=== PATIENT | female | born 1955 | race Caucasian/White ===

== ENCOUNTER → 2017-05-30 10:44 | Outpatient (CLI) | payer OTHER, SELFPAY ==
[2017-05-30 12:31] LABS: Absolute Lymphocyte Count 2.51 X10^3/ul (0.83-4.51); Basophil# 0.04 X10^3/uL; Basophil% 0.6 % (0-1); Eosinophil# 0.07 X10^3/uL; Hematocrit 42.6 % (37-47); Hemoglobin 13.8 g/dl (12.0-15.0); Lymphocyte # 2.51 X10^3/ul (4.0); Lymphocyte % 35.6 % (19-41); Mean Corp Hgb Conc 32.4 g/gl (32-36); Mean Corpuscular Hgb 29.7 pg (27.0-32.0); Mean Corpuscular Volume 91.8 fL (81-99); Mean Platelet Vol. 8.9 fl (6.2-12.0); Monocyte# 0.44 X10^3/uL; Monocyte% 6.2 % (0-10); Neutrophil % 56.6 % (47-70); Platelet Count 286 K/mm3 (150-450); RBC Distribution Width CV 13.2 % (11.6-14.6); RBC Distribution Width SD 44.4 fl (35.1-43.9); Red Blood Count 4.64 M/mm3 (4.2-5.4); White Blood Count 7.1 K/mm3 (4.4-11.0)
[2017-05-30 12:32] LABS: POSITIVE COUNT NO; POSITIVE DIFFERENTIAL NO; POSITIVE MORPHOLOGY NO
[2017-05-30 13:28] LABS: ALB/GLOB Ratio 1.2 RATIO (0.9-2.4); AST(SGOT) 21 U/L (15-37); Alanine Aminotransfer ALT/SGPT 23 U/L (13-56); Albumin, Serum 4.1 g/dL (3.2-5.0); Alkaline Phosphatase 67 U/L (45-117); Anion Gap 9 (5-15); BUN 15 mg/dL (7-18); BUN/Creat Ratio 13.5 RATIO (10-20); Calcium,Total 8.8 mg/dL (8.5-10.1); Chloride 103 mmol/L (98-107); Cholesterol 206 mg/dL (200); Creatinine, Serum 1.11 mg/dL (0.55-1.02); EST Glomerular Filtration Rate 53 mL/min (>60); Est Glom Filt Rate - Afr Amer 65 mL/min (>60); Globulin 3.5 g/dL (2.2-4.2); Glucose 101 mg/dL (74-106); High Density Lipoprotein 62 mg/dL; Potassium 3.9 mmol/L (3.5-5.1); Protein, Total 7.6 g/dL (6.4-8.2); Sodium Level 138 mmol/L (136-145); Thyroid Stim Hormone (TSH) 1.55 uIU/mL (0.358-3.74); Triglycerides 83 mg/dL; Very Low Density Lipoprotein 17 mg/dL (5-40)
[2017-05-31 08:51] LABS: Vitamin D,25 Hydroxy 24.2 ng/mL (19.95-100.01)
== END ==
PROVIDERS: Family Provider Family Medicine; PCP Family Medicine; Visit Provider Family Medicine
DX: R25.2 Cramp and spasm (principal); E55.9 Vitamin D deficiency, unspecified; E78.00 Pure hypercholesterolemia, unspecified
CPT/HCPCS: 36415; 80053; 80061; 82306; 84443; 85025

== ENCOUNTER → 2017-08-04 10:09 | Outpatient (CLI) | payer SELFPAY ==
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
--- NOTE | 2017-08-04 10:14 | RAD_ITS ---
STUDY: X-RAY - LEFT CLAVICLE REASON FOR EXAM: Female, 61 years old. Anterior left shoulder pain. TECHNIQUE: 2 view(s) of the clavicle. COMPARISON: None. FINDINGS: Normal clavicle. Normal acromioclavicular articulation. Normal visualized sternoclavicular articulation. Normal visualized pulmonary apex. RAD/Clavicle IMPRESSION: Normal x-ray examination of the clavicle. Electronically Signed: Manny Alarcon MD at 13:01 EDT Tel [phone], Service support ,
== END ==
PROVIDERS: Family Provider Family Medicine; PCP Family Medicine; Visit Provider Family Medicine
DX: M25.512 Pain in left shoulder (principal)
CPT/HCPCS: 73000; 73030

== ENCOUNTER 2017-11-13 15:01 | Outpatient (RCR) | payer SELFPAY ==
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
--- NOTE | 2018-01-08 16:33 | HP.PT.NRP ---
HP - Discharge Summary (1) - Patient Information ASIF HERNANDEZ was seen in my office for initial evaluation on 11/13/17. The following Plan of Care was established for this patient: This patient was last seen in our office . Pertinent comments regarding their Physical therapy will appear below: Patient has not attended physical therapy in over 8 weeks and is appropriate for d/c. At this point I will be discontinuing this patient from physical therapy. I would be happy to see this patient again in the future if found appropriate by the physician. Thank you! Trish Caasrez
== END 2017-11-13 19:00 | disposition home or self-care (01) ==
LOC: PT 15:01
PROVIDERS: Family Provider Family Medicine; PCP Family Medicine; Visit Provider Family Medicine
DX: S46.912D Strain of unspecified muscle, fascia and tendon at shoulder and upper arm level, left arm, subsequent encounter (principal); V89.2XXD Person injured in unspecified motor-vehicle accident, traffic, subsequent encounter
CPT/HCPCS: 97162

== ENCOUNTER → 2018-02-22 09:24 | Outpatient (CLI) | payer SELFPAY ==
--- NOTE | 2018-02-22 09:26 | RAD_ITS ---
STUDY: X-RAY - STERNOCLAVICULAR JOINTS REASON FOR EXAM: Female, 62 years old. Medial clavicular pain without a known injury. TECHNIQUE: 3 view(s) of the bilateral sternoclavicular joints were obtained. COMPARISON: None. FINDINGS: Normal bilateral sternoclavicular articulations. Normal visualized bilateral clavicles. Normal manubrium. Normal visualized ribs. RAD/S-C Jts Min 3 Views IMPRESSION: Normal x-ray of the bilateral sternoclavicular articulations. Electronically Signed: Mateo Bingham MD at 17:03 EST , Service support ,
--- NOTE | 2018-02-22 09:42 | RAD_ITS ---
STUDY: X-RAY - LEFT CLAVICLE REASON FOR EXAM: Medial clavicle pain, no specific injury. TECHNIQUE: 2 view(s) of the clavicle. COMPARISON: Radiographs 08/04/2017. FINDINGS: Normal clavicle. Normal acromioclavicular articulation. Normal visualized sternoclavicular articulation. Normal visualized pulmonary apex. RAD/Clavicle IMPRESSION: Normal x-ray examination of the left clavicle without interval change. Electronically Signed: Tino Barrios MD at 15:09 EST Tel , Service support ,
== END ==
PROVIDERS: Family Provider Family Medicine; PCP Family Medicine; Referring Provider Orthopaedic Surgery; Visit Provider Orthopaedic Surgery
DX: M89.8X1 Other specified disorders of bone, shoulder (principal)
CPT/HCPCS: 71130; 73000

== ENCOUNTER 2018-04-20 08:30 | Outpatient (RCR) | payer SELFPAY ==
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
--- NOTE | 2018-03-28 09:30 | HP.PTREVAL ---
Simona Keys, DO, It has been my pleasure to treat ASIF HERNANDEZ over the last 11 visits for SC sprain. Please see the progress note below for an update on the physical therapy plan of care! Subjective: Getting better. Seatbelt not irritating any longer on drive over. Pain level is 0/10. Nagging has subsided. Has not been painting though. Strengthening at home as prescribed adn is getting easier. Sleeping is good.Dressing is still a little painful 7/10 transisently. Painting is the main activity that she has to be careful with. Other things typically cause transient pain. Objective/Function: Has full aROM of L shoulder but pain at end range of horiz adduction trasniently. Strength is 4+/5 rotations without pain, 4+ flex and abd with slight transient discomfort flexion. Extension is painfree, horiz adduction strength painfree. Tender above clavicle L in SCM area and toward UT. Overall much better. 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 Plan Plan: 4-5 visits of gym based strength for Upper body and lower body and core to strengthen entire body for return to work. 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 Monitor pain. Goals Goal 1:: Pain abolished at rest and 2/10 at worst with reaching only Goal Time Frame: 2-4 Weeks Goal Progress: Goal Met Goal 2:: I approp HEP to minimize future problems Goal Time Frame: 2-4 Weeks Goal Progress: Goal Met Goal 3:: Sleep without interuption at night. Goal Time Frame: 2-4 Weeks Goal Progress: Goal Met Goal 4:: I approp gym based ex to be able to continue strength on own at gym and get to 75% subjective improvement Goal Time Frame: 2-4 Weeks Goal Progress: NEW GOAL Anticipated Interventions Patient/Client Instruction: Educate patient on: Condition, Plan of Care For the Purpose of:: To decrease pain, To improve ability of physical actions for home/community/work/leisure Therapeutic Exercise to Include: Strength training, Flexibilty training For the Purpose of:: To decrease pain, To improve ability of physical actions for home/community/work/leisure Manual Therapy Techniques to Include: Soft tissue mobilization Comment: to L SCM For the Purpose of:: To decrease pain Ultrasound (thermal/non thermal): Yes For the Purpose of:: To decrease pain, To improve nutrient delivery to tissue Please do not hesitate to contact me at [phone] by phone or if you have questions or concerns regarding this new plan of care! Sincerely, Cesar Moya, DPT, OC
--- NOTE | 2018-04-20 09:23 | HP.PTDCSUM_ITS ---
HP - PT D/C Summary It has been my pleasure to treat ASIF HERNANDEZ under orders from Simona Keys DO, for the diagnosis of SC sprain for a total of 16 visit(s). Discharge Date: 04/20/18 Please see the following information for a summary of their discharge status. - Subjective Subjective: Sleeping better at night. Still has pain with crossing over it will catch and mvoe slow. Reaching underneath something to clean and getting out is still painful. Pain doesn't linger. Gym ex going well and will continue on her own at her gym 3 x/week. no f/u with doctor Chic scheduled. - Pain L clavicle Pain Intensity (Out of 10): 0 - Overall Improvement % Improvement: 80 - Objective Objective/Function: Full aROM of L shoulder without pain. 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 Improving. Feels confident with ex to continue on own and let doctor know if pain returns. - Goals Goal 1:: Pain abolished at rest and 2/10 at worst with reaching only Goal Progress: Goal Met Goal 2:: I approp HEP to minimize future problems Goal Progress: Goal Met Goal 3:: Sleep without interuption at night. Goal Progress: Goal Met Goal 4:: I approp gym based ex to be able to continue strength on own at gym and get to 75% subjective improvement Goal Progress: Goal Met - Plan Plan: D/C, will contact doctor if continued improvement not noted with HEP. - D/C Information Discharge Comments: Pt doing wella nd plans to continue via home and gym ex taught to patient. Will contact doctor if pain digresses. If there are questions or concerns regarding this patient's physical therapy, please feel free to call me at [phone]. Thank you for the referral of this patient. Sincerely, Cesar Moya, DPT, OCS, CSCS
== END 2018-04-20 19:00 | disposition home or self-care (01) ==
LOC: PT 08:30
PROVIDERS: Family Provider Family Medicine; PCP Family Medicine; Referring Provider Orthopaedic Surgery; Visit Provider Orthopaedic Surgery
DX: S23.420D Sprain of sternoclavicular (joint) (ligament), subsequent encounter (principal)
CPT/HCPCS: 97035; 97110; 97140; 97161; 97530

== ENCOUNTER 2018-05-21 17:38 | Emergency (ER) | payer OTHER, SELFPAY ==
[2018-03-28 08:20] VITALS: BMI 25.0
[2018-05-21 17:40] VITALS: BP 162/85; PULSE 104; RESP 18; TEMP 37.3; O2SAT 100; BMI 27.6
[2018-05-21 17:45] VITALS: BP 143/73; PULSE 97; RESP 18; O2SAT 100
--- NOTE | 2018-05-21 18:21 | ED.DCSUM_ITS ---
- ER Visit Summary Date of Service: 05/21/18 Chief Complaint: Episodes of shortness of breath History of Present Illness: The patient is a [address] Maldonado. She reports that over the past 3 years she has had 10 episodes where she has had the abrupt onset of shortness of breath. States that during these episodes it feels as though her vocal cord spasm and shot. She is unable to speak. She is unable to breathe in or out. States that over the past 4 days she has had 3 episodes. States that they have each lasted 4-5 minutes. She has not been seen for this previously. Patient reports that she does have a little bit of cough. She reports that she is not having any shortness of breath other than during these episodes. No fever or chills. No chest pain or palpitations. No other complaints. Physical Examination: Vitals: Stable. Afebrile. General: Well-nourished and well-developed. Head: Normocephalic atraumatic. Neck: Supple, no lymphadenopathy. No JVD. Nontender. Cardiovascular: Regular rate and rhythm. No murmurs. Respiratory: No respiratory distress. Clear to auscultation bilaterally. Abdominal: Soft, nontender, nondistended, normal bowel sounds. No guarding, rebound, or peritoneal signs. Back: Nontender. Extremities: Nontender, no edema. Skin: Normal color, no rash. Neurologic: Alert and oriented ?3. Cranial nerves II through XII are intact. Normal strength and sensation. Psych: Normal affect. Emergency Department Course and Treatment: Patient was discussed with Dr. Darius Hughes. She is resting comfortably here. Treatment Plan: Patient will be discharged instructions use a humidifier in her home to help with the irritability of her vocal cords. She will be placed on Prilosec. Instructed to follow-up Dr. Hughes in the next 3-5 days for direct visualization. Return to the emergency department for any worsening symptoms. Disposition: To home in improved and stable condition. Impression: 1. Laryngeal spasm. This note was generated with [employer] software. It may contain incorrect words, spelling, and punctuation that were not noted in review of the chart prior to signing ED Disposition - Plan for ED Patient: Disposition: Home or Assisted Living Prescriptions: Omeprazole [Prilosec] 20 mg PO DAILY #30 capsule Referrals: Darius Pardo MD [STAFF PHYSICIAN] - 3-5 Days
== END 2018-05-21 18:43 | disposition home or self-care (01) ==
LOC: ED 18:31
PROVIDERS: Emergency Provider Emergency Medicine; Family Provider Family Medicine; PCP Family Medicine
DX: J38.5 Laryngeal spasm (principal); I10 Essential (primary) hypertension; F17.210 Nicotine dependence, cigarettes, uncomplicated
CPT/HCPCS: 99284

== ENCOUNTER → 2018-09-24 08:39 | Outpatient (CLI) | payer OTHER, SELFPAY ==
--- NOTE | 2018-09-24 08:43 | BI_ITS ---
MAMMOGRAPHY - BILATERAL SCREENING REASON FOR EXAM: Female, 63 years old. Routine annual screening examination. PERTINENT HISTORY: Mother with breast cancer. TECHNIQUE: Digital bilateral breast narendra (3D mammographic acquisition) in the CC and MLO projections. 2-D mediolateral oblique (MLO) and craniocaudad (CC) views of both breasts were obtained. CAD: Full Field Digital Mammography with Computer Added Detection was performed. COMPARISON: Comparison is made with prior study dated January 20, 2017 and August 28, 2015. FINDINGS: Breast Composition: The breasts are heterogeneously dense, which may obscure small masses. There are no dominant masses or suspicious calcifications. Stable small bilateral axillary lymph nodes. No other significant abnormalities are identified. There has been no significant change since the prior study. BI/SCREEN MAMM (CAD) W/NARENDRA BILAT IMPRESSION: Stable bilateral screening mammogram. Yearly follow-up mammogram recommended. (A) ASSESSMENT CATEGORY: BIRADS Category 2: Benign. A letter regarding these results will be sent to the patient by the facility within 30 days. Approximately 10% of breast cancers are not detected by mammography. A normal mammogram should not delay biopsy of a clinically suspicious abnormality. [id number] Electronically Signed: Manny Alarcon, at 9:47 EDT , Service support ,
== END ==
PROVIDERS: Family Provider Family Medicine; PCP Family Medicine; Referring Provider Family Medicine; Visit Provider Family Medicine
DX: Z12.31 Encounter for screening mammogram for malignant neoplasm of breast (principal)
CPT/HCPCS: 77063; 77067

== ENCOUNTER → 2019-08-26 12:20 | Outpatient (CLI) | payer OTHER, SELFPAY ==
--- NOTE | 2019-08-26 12:24 | RAD_ITS ---
STUDY: X-RAY - LEFT KNEE REASON FOR EXAM: Female, 64 years old. Pain TECHNIQUE: 4 view(s) of the knee. COMPARISON: None. FINDINGS: Normal visualized distal femur. Normal visualized proximal tibia and fibula. Normal proximal tibiofibular articulation. Normal medial femorotibial compartment. Normal lateral femorotibial compartment. Normal patellofemoral articulation. The soft tissue structures are unremarkable. RAD/Knee 4 or More Views IMPRESSION: Normal x-ray examination of the knee. Electronically Signed: Manny Alarcon, at 15:42 EDT , Service support ,
--- NOTE | 2019-08-26 12:25 | RAD_ITS ---
STUDY: X-RAY - LEFT FOOT CLINICAL: Female, 64 years old. Lateral side left foot pain, more towards heel TECHNIQUE: 3 view(s) of the foot. COMPARISON: None. FINDINGS: Normal talus, calcaneus, and tarsal bones. Normal visualized subtalar, talonavicular, calcaneocuboid, tarsal and tarsometatarsal articulations. Normal metatarsi. Normal metatarsophalangeal joint of the great toe. Normal tibial and fibular sesamoid bones. Normal interphalangeal joint of the great toe. Normal phalanges of the great toe. Normal second through fifth metatarsophalangeal joints. Normal interphalangeal joints and phalanges of the lesser toes. The soft tissue structures are unremarkable. RAD/Foot min 3 Views IMPRESSION: Normal x-ray examination of the foot. Electronically Signed: Manny Alarcon, at 15:39 EDT , Service support ,
[2019-08-26 15:03] LABS: Vitamin D,25 Hydroxy 52.1 ng/mL
[2019-08-26 15:08] LABS: Anion Gap 7 (5-15); BUN 10 mg/dL (7-18); BUN/Creat Ratio 8.7 RATIO (10-20); Calcium,Total 9.3 mg/dL (8.5-10.1); Chloride 107 mmol/L (98-107); Cholesterol 237 mg/dL (200); Creatinine, Serum 1.15 mg/dL (0.55-1.02); EST Glomerular Filtration Rate 51 mL/min (>60); Est Glom Filt Rate - Afr Amer 62 mL/min (>60); Glucose 109 mg/dL (74-106); High Density Lipoprotein 64 mg/dL; Sodium Level 140 mmol/L (136-145); Triglycerides 86 mg/dL; Very Low Density Lipoprotein 17 mg/dL (5-40)
== END ==
PROVIDERS: PCP Family Medicine; Referring Provider Family Medicine; Visit Provider Family Medicine
DX: I10 Essential (primary) hypertension (principal); E55.9 Vitamin D deficiency, unspecified; M79.672 Pain in left foot; M25.562 Pain in left knee
CPT/HCPCS: 36415; 73564; 73630; 80048; 80061; 82306

== ENCOUNTER 2019-09-26 07:00 | Outpatient (RCR) | payer OTHER, SELFPAY ==
--- NOTE | 2019-09-05 08:24 | HP.PTEVAL_ITS ---
Patient's Visit Information GABRIELLE HERNANDEZ is a 64 year old F referred to Physical Therapy by Dr. Gabrielle Goldstein MD with a diagnosis of L knee pain. Date of Evaluation: 09/03/19 Physical Therapist: Arian Frey DPT - Visit Plan Frequency: 2x /Week Duration: 6 Weeks Plan: Start with mauricio stretching and ER stretching as tolerated. Add in DFM to hip flexor (hip flexor release). Add in Femoral acetabular distraction and inferior glides with hip flexor and IR/ER (with belt) to facility better joint mechanics. Progress ankle stability (balance activies once able to complete pain free), ankle strengthening as tolerated. - Subjective Pt. is here today for her initial evaluation with diagnosis of L knee pain. Pt. has been experiencing increased L ankle pain for a few weeks, but was trying to walk through her soreness and eventually developed from L knee and hip pain as well. She believes is from compensating while she is was walking. Her knee pain is doing much better, but still has some anterior ankle pain, superior to tibial talar junction. She is also hasve some anterior L hip pain with walking and with extending. 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 Pt. denies N/T, no mech of injury, no fever, no locking or any joints and no popping. Pt. is hopeful to reduce symtoms in order to get back to all of her walking without limitations. - Pain L ankle Pain Intensity (Out of 10): 1 Pain Intensity Range: 0, 3 L knee Pain Intensity (Out of 10): 1 Pain Intensity Range: 0, 3 L hip Pain Intensity (Out of 10): 2 Pain Intensity Range: 0, 4 - Objective POSTURE: pt. has normal posture in stance. Normal knee and ankle positioning. Pt. has normal iliasc crest hieghts, symmetrical. PALPATION: Pt. has tenderness at L ankle (anterior and superor to tibial talar junction). Pt. has no lateral ankle pain. L knee pain: normal throughout all palpation. L hip- increased pain at anterior hip including iliopsoas muscle bundle. NEURO: normal throughout. Normal DTR, normal sensation. ROM: Pt. has normal ankle ROM and normal knee ROM without increase in symptioms. L hip- pain has increased pain (stretch) with light hip extension, very tight. Pt. has incrased pain with increased L hip flexion and FADDIR testing. Tightness wtih JACKIE positioning. MMT: Pt. has good strength thorughout knee and ankle. L hip- ER 4/5, extension 5/5, IR 4/5, abd 4+/5, flexion 4/5 increase NW. GAIT: Pt. ambulates with decreased L hip ex tension, tends to rotate trunk to L to compensate for her lack of L hip extnsion, normal knee postioning, she does tend to ambulate with incrased conact at lateral foot on left side. STAIRS: normal with good control, mild incrase in L knee pain with loading during descending. - Special Tests L Hip Scour: Negative L Hip JACKIE - Intraarticular Pathology: Positive L Hip FADDIR - Labrum: Positive L Knee Fabiana - Meniscus: Negative L Knee Apley - Meniscus: Negative L Knee Anterior Drawer - ACL: Negative L Knee Posterior Drawer - PCL: Negative L Knee Valgus - MCL: Negative L Knee Varus - LCL: Negative - Goals Goal 1:: LTG: Pt. to be I with HEP. Goal Time Frame: 4-6 Weeks Goal 2:: LTG: Pt. to have incrased L hip extension and ER motions to full withotu increase in symptoms. Goal Time Frame: 4-6 Weeks Goal 3:: LTG: Pt. to have 5/5 strength throughout LLE without increase in symptoms. Goal Time Frame: 4-6 Weeks Goal 4:: STG: Pt. to ambulate community levels distances without increase in L ankle, knee and hip. Goal Time Frame: 2-4 Weeks Goal 5:: LTG: pt. to resume her 2 mile recreational walking without increase in L ankle, knee and hip. Goal Time Frame: 4-6 Weeks - Rehabilitation Potential Physical Therapy Diagnosis: Pt. has signs and symptoms consistent with L knee pain, but also has L ankle and hip pain. Pt. did not have any increased L knee pain with mechanical testing. She was point tender at L ankle superior to tibial talar joint, suggesting possible high ankle sprain pathology, but no good mech of injury. She also has increased pain at anterior hip, especially with FADDIR/ impinging her anterior hip. I would recommend that she works on L hip extension and ER stretching, add in ankle stabilit and hip stretching exercises as tolerated progressing back to all of her walking as tolerated. Rehabilitation Potential: Excellent - Anticipated Interventions Patient/Client Instruction: Educate patient on: Condition, Plan of Care, Risk Factors, Benefits of Fitness Program For the Purpose of:: To improve decision making, To facilitate caregiver knowledge, To improve self management, To prevent re-injury, To improve ability to perform tasks related to life management, To improve tolerance to ADL's Therapeutic Exercise to Include: Strength training, Power training, Balance training, Body mechanics, Postural training, Flexibilty training, Gait and locomotor training, Neuromotor development, Passive ROM, Active ROM For the Purpose of:: To decrease pain, To decrease swelling/inflammation, To increase ROM, To improve nutrient delivery to tissue, To increase oxygenation perfusion, To improve muscle performance and motor function, To improve gait and locomotor functions, To improve health of tissue, To decrease soft tissue restriction, To increase flexibility/ROM, To improve balance Manual Therapy Techniques to Include: Mobilization, Passive ROM, Soft tissue mob ilization For the Purpose of:: To decrease pain, To decrease swelling/inflammation, To increase ROM, To improve nutrient delivery to tissue Ultrasound (thermal/non thermal): Yes For the Purpose of:: To decrease pain, To decrease swelling/inflammation, To improve nutrient delivery to tissue, To increase oxygenation perfusion Thank you for the opportunity to evaluate your patient. For Medicare and Medicare HMO plans, please review the plan of care and approve it. It will need to be FAXED BACK to us at [phone] for Medicare purposes. For Medicare only, by signing this I certify the plan of care. Please let me know if there are questions or concerns regarding this plan of care. Physician Signature: Date:
--- NOTE | 2019-09-26 07:30 | HP.PTDCSUM ---
It has been my pleasure to treat GABRIELLE HERNANDEZ referred by Dr. Gabrielle Goldstein MD, with the diagnosis of L knee pain for a total of 6 visit(s). Discharge Date: 09/26/19 Please see the following information for a summary of their discharge status. Subjective: Pt. reports overall she is doing better. Back to walking routine without issues. It has been so helpful.' L ankle Pain Intensity (Out of 10): 0 L knee Pain Intensity (Out of 10): 0 L hip Pain Intensity (Out of 10): 3 % Improvement: 100 Objective/Function: Pt. is doing much better with all of her mobility. She is no longer having any ankle or hip pain. She does have some stiffness with IR motions, but minimal. Pt. is overall doig much better. Pt. has greater strenth 5/5 troughout. I talked to her about continuing to stretch her calf, IT band, hip flexor, HS and quad. PT. has HEP to do so. Goal 1:: LTG: Pt. to be I with HEP. Goal Progress: Goal Met Goal 2:: LTG: Pt. to have incrased L hip extension and ER motions to full withotu increase in symptoms. Goal Progress: Goal Met Goal 3:: LTG: Pt. to have 5/5 strength throughout LLE without increase in symptoms. Goal Progress: Goal Met Goal 4:: STG: Pt. to ambulate community levels distances without increase in L ankle, knee and hip. Goal Progress: Goal Met Goal 5:: LTG: pt. to resume her 2 mile recreational walking without increase in L ankle, knee and hip. Goal Progress: Goal Met Plan: Pt. to be DC at this point time. Discharge Comments: Pt. was seen for her L ankle, knee, hip pain. Pt. did very well with stretching and strengthenign. She is back to all of her recreational walking. Pt. is compliant with HEP for mainly stretching. Pt. will be DC to HEP as shee reports beign 100% better at this point intime. If there are questions or concerns regarding this patient's physical therapy, please feel free to call me at [phone]. Thank you for the referral of this patient. Sincerely, Arian Frey DPT
== END 2019-09-26 10:31 | disposition home or self-care (01) ==
LOC: PT 07:00
PROVIDERS: PCP Family Medicine; Referring Provider Family Medicine; Visit Provider Family Medicine
DX: M25.562 Pain in left knee (principal)
CPT/HCPCS: 97110; 97140; 97161; 97164

== ENCOUNTER → 2019-11-11 10:13 | Outpatient (CLI) | payer OTHER, SELFPAY ==
--- NOTE | 2019-11-11 10:15 | BI_ITS ---
MAMMOGRAPHY - BILATERAL SCREENING REASON FOR EXAM: Female, 64 years old. Routine annual screening examination. PERTINENT HISTORY: Mother with breast cancer. TECHNIQUE: Digital bilateral breast narendra (3D mammographic acquisition) in the CC and MLO projections. 2-D mediolateral oblique (MLO) and craniocaudad (CC) views of both breasts were obtained. CAD: Full Field Digital Mammography with Computer Added Detection was performed. COMPARISON: Comparison is made with prior study dated 09-24-18 and 01-20-17. FINDINGS: Breast Composition: The breasts are heterogeneously dense, which may obscure small masses. There are no dominant masses or suspicious calcifications. Stable small benign appearing bilateral axillary lymph nodes. No other significant abnormalities are identified. There has been no significant change since the prior study. BI/SCREEN MAMM (CAD) W/NARENDRA BILAT IMPRESSION: Stable bilateral screening mammogram. Yearly follow-up mammogram recommended. (A) ASSESSMENT CATEGORY: BIRADS Category 2: Benign. A letter regarding these results will be sent to the patient by the facility within 30 days. Approximately 10% of breast cancers are not detected by mammography. A normal mammogram should not delay biopsy of a clinically suspicious abnormality. [id number] Electronically Signed: Manny Alarcon, at 11:14 EDT , Service support ,
== END ==
PROVIDERS: PCP Family Medicine; Referring Provider Family Medicine; Visit Provider Family Medicine
DX: Z12.31 Encounter for screening mammogram for malignant neoplasm of breast (principal)
CPT/HCPCS: 77063; 77067

== ENCOUNTER → 2020-06-30 11:40 | Outpatient (CLI) | payer OTHER, SELFPAY ==
[2020-06-30 13:16] LABS: Vitamin D,25 Hydroxy 34.3 ng/mL
[2020-06-30 13:20] LABS: Hemoglobin A1c 5.7 % (3.8-5.6)
[2020-06-30 13:26] LABS: Anion Gap 5 (5-15); BUN 10 mg/dL (7-18); Chloride 104 mmol/L (98-107); Cholesterol 247 mg/dL (200); Creatinine, Serum 1.25 mg/dL (0.55-1.02); EST Glomerular Filtration Rate 46 mL/min (>60); Est Glom Filt Rate - Afr Amer 56 mL/min (>60); Glucose 103 mg/dL (74-106); High Density Lipoprotein 68 mg/dL; Magnesium 2.1 mg/dL (1.6-2.6); Potassium 4.2 mmol/L (3.5-5.1); Sodium Level 137 mmol/L (136-145); Triglycerides 93 mg/dL; Very Low Density Lipoprotein 19 mg/dL (5-40)
== END ==
PROVIDERS: PCP Family Medicine; Referring Provider Family Medicine; Visit Provider Family Medicine
DX: I10 Essential (primary) hypertension (principal); E55.9 Vitamin D deficiency, unspecified; R63.5 Abnormal weight gain
CPT/HCPCS: 36415; 80048; 80061; 82306; 83036; 83735

== ENCOUNTER → 2021-03-04 07:09 | Outpatient (CLI) | payer OTHER, SELFPAY ==
--- NOTE | 2021-03-04 07:17 | BI_ITS ---
MAMMOGRAPHY - BILATERAL SCREENING REASON FOR EXAM: Female, 65 years old. Routine annual screening examination. PERTINENT HISTORY: Sister with breast cancer. Mother with breast cancer. TECHNIQUE: Digital bilateral breast narendra (3D mammographic acquisition) in the CC and MLO projections. 2-D mediolateral oblique (MLO) and craniocaudad (CC) views of both breasts were obtained. CAD: Full Field Digital Mammography with Computer Added Detection was performed. COMPARISON: Comparison is made with prior study dated 11/11/2019 and 09/24/2018. FINDINGS: Breast Composition: The breasts are heterogeneously dense, which may obscure small masses. There are no dominant masses or suspicious calcifications. Stable small benign-appearing bilateral axillary lymph nodes. No other significant abnormalities are identified. There has been no significant change since the prior study. BI/SCRN MAMM (CAD)W/NARENDRA BILAT IMPRESSION: Stable bilateral screening mammogram. Yearly follow-up mammogram recommended. (A) ASSESSMENT CATEGORY: BIRADS Category 2: Benign. A letter regarding these results will be sent to the patient by the facility within 30 days. Approximately 10% of breast cancers are not detected by mammography. A normal mammogram should not delay biopsy of a clinically suspicious abnormality. [id number] Electronically Signed: Manny Alarcon MD at 8:28 EST , Service support ,
== END ==
PROVIDERS: PCP Nurse Practitioner Family; Referring Provider Nurse Practitioner Family; Visit Provider Nurse Practitioner Family
DX: Z12.31 Encounter for screening mammogram for malignant neoplasm of breast (principal)
CPT/HCPCS: 77063; 77067

== ENCOUNTER 2021-05-07 16:45 | Outpatient (CLI) | payer OTHER, SELFPAY | END 2021-05-07 23:59 | disposition short-term general hospital (02) | LOC: LABSPEC 16:46 | PROVIDERS: PCP Nurse Practitioner Family; Visit Provider Nurse Practitioner Family | DX: Z20.822 Contact with and (suspected) exposure to COVID-19 (principal) | CPT/HCPCS: 87635; U0003; U0005 ==

== ENCOUNTER 2021-05-17 09:41 | Outpatient (CLI) | payer OTHER, SELFPAY ==
--- NOTE | 2021-05-17 09:50 | RAD_ITS ---
STUDY: X-RAY CHEST REASON FOR EXAM: Female, 65 years old. SOB TECHNIQUE: PA and lateral views of the chest. COMPARISON: None. FINDINGS: Hyperinflation. The lungs are clear. There is no demonstrated pleural abnormality. Normal size heart. Normal mediastinum and meño. Normal visualized pulmonary arteries. Normal visualized aortic arch and descending thoracic aorta. There are mild degenerative changes of the visualized thoracic spine. Normal visualized ribs, clavicles, and shoulders. There is no demonstrated abnormality of the visualized soft tissue structures of the upper abdomen. RAD/Chest PA and Lateral IMPRESSION: Hyperinflation. The lungs are clear. Electronically Signed: Manny Alarcon MD at 15:56 EST ,
== END 2021-05-17 23:59 | disposition short-term general hospital (02) ==
PROVIDERS: PCP Nurse Practitioner Family; Referring Provider Nurse Practitioner Family; Visit Provider Nurse Practitioner Family
DX: R06.02 Shortness of breath (principal)
CPT/HCPCS: 71046

== ENCOUNTER 2022-01-30 21:18 | Emergency (ER) | payer OTHER, SELFPAY ==
[2022-01-30 21:19] VITALS: BP 153/82; PULSE 104; RESP 16; TEMP 36.6; O2SAT 100; BMI 25.8
--- NOTE | 2022-01-30 22:16 | ED.VIS.CHEST ---
HPI History of Present Illness Chief Complaint: Chest Pain Informant: patient Onset/Context/Timing Onset: Weeks (2) Activity at onset: gradual Timing: Waxes and wanes Quality: Positive for Burning, Tightness and - (Squeezing) Location: Substernal Worsened By: - (Laying down) Relieved By: Antacids Associated Symptoms: Positive for Acid Reflux; Negative for Nausea, Vomiting, Diaphoresis, Dyspnea, Cough, Fever, Lightheadedness or Palpitations Narrative Narrative: Patient presents with chest pain that has been waxing and waning over the last 2 weeks but has gotten worse over the past 4 nights. Patient states her pain is worse when she lays down at night. Patient states she has been taking an acids and baking soda with some brief improvement of her symptoms. Patient denies any shortness of breath. Patient denies any nausea or vomiting. Patient describes her pain as squeezing, tightness, and burning. Patient states it is over the substernal area and occasionally radiates into her neck and jaw. Patient denies any diaphoresis. CVD Risk Factors: Positive for Hypertension and Smoking; Negative for Diabetes, Hypercholesterolemia or Family History 1' </=55 PE Risk Factors: Negative for Recent Travel/Surgery, Recent Immobilization, Prior DVT or PE, Cancer or OCP + Smoking + >/=35 PFSH PFSH Medical History History of alcohol abuse History of hypertension Mild depression Vitamin D deficiency Home Medications amitriptyline 25 mg tablet 25 mg PO QDAY 11/21/17 [History Last Taken Unknown] losartan 50 mg tablet 50 mg PO QDAY 11/21/17 [History Last Taken Unknown] sennosides 8.6 mg tablet (Senna Concentrate) 8.6 mg PO BID PRN Constipation 11/21/17 [History Last Taken Unknown] omeprazole 20 mg capsule,delayed release 20 mg PO DAILY ##30 05/21/18 [Rx Last Taken Unknown] metoclopramide HCl 10 mg tablet 10 mg PO 4X/DAY PRN Headache #20 tabs 01/31/22 [Rx Last Taken Unknown] Allergy/AdvReac Type Severity Reaction Status Date / Time amoxicillin [From Augmentin] Allergy Intermediate stomach Verified 01/30/22 21:18 pain clavulanic acid Allergy Intermediate stomach Verified 10/16/22 21:18 [From Augmentin] pain Family History Other Alcoholism Anxiety Breast cancer High cholesterol Hypertension Surgical History history of left eye surgery Social History Smoking Status: Current every day smoker tobacco type: cigarettes alcohol intake: former substance use type: does not use what type of physical activity do you participate in: walking and yoga frequency: 1-2 times per week ROS ROS ED Constitutional Constitutional ED: Denies chills or fever(s) Eyes Eyes: Denies blurry vision or change in vision ENT ENT ED: Denies rhinorrhea or sore throat Cardiovascular Cardiovascular: Reports chest pain; Denies palpitations Respiratory/Chest Respiratory/Chest: Denies cough or dyspnea Gastrointestinal Gastrointestinal: Denies abdominal pain, nausea or vomiting Genitourinary Genitourinary ED: Denies dysuria or hematuria Musculoskeletal Musculoskeletal: Reports neck pain; Denies back pain Integumentary Denies abscess or rash Neurologic Neurologic: Denies headache(s) or weakness Allergic/Immunologic Allergic/Immunologic ED: Denies mouth swelling or urticaria EXAM Physical Exam Const Vital Signs: 01/30/22 21:19 01/30/22 21:30 01/30/22 22:29 Temperature 97.8 F Temperature Source Temporal Pulse Rate 104 H 86 Respiratory Rate 16 16 Respiratory Effort Normal Blood Pressure 153/82 H 120/85 H Blood Pressure Mean 105 96 Pulse Ox 100 96 Oxygen Delivery Method Room Air Room Air 01/30/22 23:15 01/31/22 00:00 Temperature Temperature Source Pulse Rate 88 88 Respiratory Rate 18 14 Respiratory Effort Blood Pressure 132/85 H 113/72 Blood Pressure Mean 100 85 Pulse Ox 99 98 Oxygen Delivery Method Room Air Room Air Positive well nourished and well developed General Appearance ED: well developed and NAD HEENT normocephalic and atraumatic Eyes PERRL and EOMs intact bilaterally Neck supple and no JVD Chest Wall palpation of chest normal Resp normal respiratory effort and clear to auscultation bilaterally Effort and Inspection: Negative for respiratory distress Cardio regular rate, regular rhythm and no murmurs GI normal to inspection, nondistended, normoactive bowel sounds, soft to palpation, non-tender and non-distended Extremity normal to inspection General Extremety ED: Negative for edema or tenderness General Extremity: Negative for edema Neuro oriented x3, CN's II-XII intact bilaterally and no sensory deficits noted Sensorium / Orientation: awake and alert Motor Exam: strength 5/5 throughout Psych mental status grossly normal Heart Score History: Slightly/Non-Suspicious ECG: Normal Age: >45 - <65 years Risk Factors: 1 or 2 Risk Factors Troponin: </= Normal Limit Score: 2 MDM MDM MDM Narrative Medical decision making narrative: EKG was obtained. On my interpretation, it showed a normal sinus rhythm with a rate of 98. CO interval, QRS interval, and QTc intervals were all normal. [place] was normal. There are no acute ST or T wave changes. PA and lateral chest x-ray was obtained. There are 2 views. On my interpretation, lung shaw do not show any acute infiltrate. There is normal cardiac silhouette. Bony thorax is normal. There is no acute process noted. Radiologist also interpreted the x-ray and saw a right upper lobe pulmonary nodule. He recommended further evaluation with CT of the chest with contrast. This was ordered. There is a 2.1 cm spiculated nodularity in the right upper lobe that is suspicious for malignancy. This was interpreted by the radiologist and reviewed by myself. CBC was within normal limits. Comprehensive metabolic profile was within normal limits. High-sensitivity troponin was normal. Lipase was normal. Patient was given a GI cocktail. Patient states she felt better after this. Patient was given a dose of Reglan here. Patient is given a prescription for Reglan. Patient has a HEART score of 2. Patient was advised that this is low risk for acute cardiac event. Patient was advised of the results. Patient was counseled on the need for follow-up. Patient was instructed to follow-up with her primary care physician in 5 to 7 days. Patient understood and was agreeable with the plan. All questions were answered. Lab Data Attestation: I reviewed the patient's lab results. Labs: Laboratory Results - last 24 hr 01/30/22 01/30/22 22:10 22:40 WBC 7.1 RBC 4.39 Hgb 13.3 Hct 38.6 MCV 87.9 MCH 30.3 MCHC 34.5 RDW Std Deviation 42.8 RDW Coeff of Davida 13.2 Plt Count 278 MPV 8.5 Immature Gran % (Auto) 0.100 Neut % (Auto) 44.7 L Lymph % (Auto) 42.9 H [place] % (Auto) 9.2 Eos % (Auto) 2.4 Baso % (Auto) 0.7 Absolute Neuts (auto) 3.2 Absolute Lymphs (auto) 3.04 Nucleated RBC % 0 Sodium 137 Potassium 4.2 Chloride 104 Carbon Dioxide 27.0 Anion Gap 6 BUN 21 H Creatinine 1.07 H Estim Creat Clear Calc 49.72 Est GFR (MDRD) Af Amer 66 Est GFR (MDRD) Non-Af 55 L BUN/Creatinine Ratio 19.6 Glucose 93 Calcium 8.9 Total Bilirubin 0.50 AST 14 L ALT 19 Alkaline Phosphatase 69 Troponin I High Sens 5 Total Protein 7.1 Albumin 3.6 Globulin 3.5 Albumin/Globulin Ratio 1.0 Lipase 139 Radiography Chest X-Ray - ED: 2 View, Read by ED Physician, Read by Radiologist and No Acute Disease Diagnostic Testing: Clinical Impression(s) from Imaging Studies Chest X-Ray 01/30/22 22:31 IMPRESSION: Suspect right upper lobe pulmonary nodule and correlation with CT the chest with contrast is recommended. Electronically Signed: Kristofer Bah MD at 22:45 EDT , Chest CTA 01/30/22 23:21 IMPRESSION: Right upper lobe multifocal spiculated nodularity up to 2.1 cm in size worrisome for malignancy. Pulmonary consultation is recommended for consideration for tissue sampling. Centrilobular emphysematous change. Confluent mediastinal adenopathy worrisome for metastatic disease. Bilateral hilar lymph nodes are subcentimeter and nonspecific. Consider PET/CT. No evidence of pulmonary embolism. Concern for abdominal aneurysmal dilatation at the inferior study margin. Recommend abdominal CT. Electronically Signed: Abiodun Verma MD at 0:32 EDT , EKG Initial EKG: Attestation: I personally reviewed and interpreted this EKG as follows: Interpretation: Sinus Rhythm (98) and No Acute Injury Pattern Prior EKG tracings: not available for review Prior: No Prior Discharge Plan Triage Chief Complaint: Chest Pain ED Provider: Cesar Barbour Dx/Rx/DC Orders Clinical Impression: Chest pain, GERD (gastroesophageal reflux disease) Instructions: ED Chest Pain, Uncertain Cause, ED GERD (Adult) Prescriptions: New metoclopramide HCl [metoclopramide HCl] 10 mg tablet 10 mg PO 4X/DAY PRN (Reason: Headache) Qty: 20 0RF No Action losartan 50 mg tablet 50 mg PO QDAY amitriptyline 25 mg tablet 25 mg PO QDAY sennosides [Senna Concentrate] 8.6 mg tablet 8.6 mg PO BID PRN (Reason: Constipation) omeprazole 20 MG capsule 20 mg PO DAILY Qty: 30 0RF Primary Care Provider: Lara Bobo NP Referrals: Lara Bobo AUTOMATIC EQUIPMENT TECHNICIAN, AUTOMATIC EQUIPMENT TECHNICIAN-C [Primary Care Provider] - 5-7 Days Disposition Disposition: Home, Self Care
--- NOTE | 2022-01-30 22:23 | EKG12_ITS ---
Test Reason : CP Blood Pressure : / mmHG Vent. Rate : 098 BPM Atrial Rate : 098 BPM P-R Int : 128 ms QRS Dur : 076 ms QT Int : 336 ms P-R-T Axes : 079 045 060 degrees QTc Int : 428 ms Normal sinus rhythm Low voltage QRS Possible Left atrial enlargement Confirmed by ROZINA MCGARRY, PAYAM ([id number]), sports editor CESIA ESTES ([id number]) on 02/01/2022 8:22:28 AM Referred By: BB Confirmed By:PAYAM HANDY MD
[2022-01-30 22:29] VITALS: BP 120/85; PULSE 86; RESP 16; O2SAT 96
--- NOTE | 2022-01-30 22:31 | RAD_ITS ---
STUDY: X-RAY CHEST REASON FOR EXAM: Female, 66 years old. Chest pain TECHNIQUE: PA and lateral views of the chest. COMPARISON: 05/17/2021 FINDINGS: 2 cm nodular opacity in the upper right lung worrisome for pulmonary nodule and correlation with CT the chest with contrast is recommended. There is no demonstrated pleural abnormality. Normal size heart. Normal mediastinum and meño. Normal visualized pulmonary arteries. Normal visualized aortic arch and descending thoracic aorta. Normal visualized thoracic spine. Normal visualized ribs, clavicles, and shoulders. There is no demonstrated abnormality of the visualized soft tissue structures of the upper abdomen. RAD/Chest PA and Lateral IMPRESSION: Suspect right upper lobe pulmonary nodule and correlation with CT the chest with contrast is recommended. Electronically Signed: Kristofer Bah MD at 22:45 EDT ,
[2022-01-30 22:34] LABS: Absolute Lymphocyte Count 3.04 X10^3/uL (0.83-4.51); Absolute Neutrophil Count 3.2 X10^3/uL (2.0-7.7); Basophil# 0.05 X10^3/uL; Basophil% 0.7 % (0-1); Eosinophil# 0.17 X10^3/uL; Eosinophils% 2.4 % (0-5); Hematocrit 38.6 % (37-47); Hemoglobin 13.3 g/dL (12.0-15.0); Lymphocyte # 3.04 X10^3/ul (0.83-4.51); Lymphocyte % 42.9 % (19-41); Mean Corp Hgb Conc 34.5 g/dL (32-36); Mean Corpuscular Hgb 30.3 pg (27.0-32.0); Mean Corpuscular Volume 87.9 fL (81-99); Mean Platelet Vol. 8.5 fl (6.2-12.0); Monocyte# 0.65 X10^3/uL; Monocyte% 9.2 % (0-10); NRBC Flagged by Analyzer 0 % (0-5); Neutrophil # 3.16 X10^3/uL (2.7-7.7); Neutrophil % 44.7 % (47-70); Platelet Count 278 K/mm3 (150-450); RBC Distribution Width CV 13.2 % (11.6-14.6); RBC Distribution Width SD 42.8 fl (35.1-43.9); Red Blood Count 4.39 M/mm3 (4.2-5.4); White Blood Count 7.1 K/mm3 (4.4-11.0)
[2022-01-30] MEDS: Mag Hydrox/Al Hydrox/Simeth 30 ML UDC PO (22:51)
[2022-01-30 22:57] LABS: AST(SGOT) 14 U/L (15-37); Alanine Aminotransfer ALT/SGPT 19 U/L (13-56); Albumin, Serum 3.6 g/dL (3.2-5.0); Alkaline Phosphatase 69 U/L (45-117); Anion Gap 6 (5-15); BUN 21 mg/dL (7-18); BUN/Creat Ratio 19.6 RATIO (10-20); Calcium,Total 8.9 mg/dL (8.5-10.1); Chloride 104 mmol/L (98-107); Creatinine, Serum 1.07 mg/dL (0.55-1.02); EST Glomerular Filtration Rate 55 mL/min (>60); Est Glom Filt Rate - Afr Amer 66 mL/min (>60); Estimated Creatinine Clearance 49.72 ml/min; Globulin 3.5 g/dL (2.2-4.2); Glucose 93 mg/dL (74-106); Lipase 139 U/L (73-393); Potassium 4.2 mmol/L (3.5-5.1); Protein, Total 7.1 g/dL (6.4-8.2); Sodium Level 137 mmol/L (136-145); Troponin-I HS 5 pg/mL (3.0-54.0)
[2022-01-30 23:15] VITALS: BP 132/85; PULSE 88; RESP 18; O2SAT 99
--- NOTE | 2022-01-30 23:21 | CT_ITS ---
ACR Level 3 findings have been noted. An addendum which confirms receipt of the report will follow. STUDY: CTA CHEST REASON FOR EXAM: Female, 66 years old. Pulmonary nodule RADIATION DOSAGE (If Supplied By Facility): CTDIvol = ( 14.96 ) mGy, DLP = ( 328.05 ) mGycm TECHNIQUE: The examination was performed with the intravenous administration of IV 100mL Isovue-370. Post-processing of the angiographic images was performed, with multiplanar reformation and 3D reconstruction. Individualized dose optimization techniques were used for this CT. COMPARISON: Chest radiograph January 30, 2022. FINDINGS: Unremarkable thyroid. Normal enhancement of the main pulmonary artery and right and left pulmonary arteries. Normal enhancement of the bilateral peripheral pulmonary arteries. There is no demonstrated pulmonary embolism. Scattered aortic atherosclerosis without aortic dissection or aneurysmal dilatation. Normal heart and pericardium. No densely calcified coronary atherosclerosis. Subcentimeter bilateral hilar lymph nodes. Confluent adenopathy in the precarinal mediastinum spanning approximately 2.2 cm with partial encasement and mild narrowing of the right pulmonary artery. Mild bilateral peribronchial thickening with endobronchial debris in the posterior right lower lobe bronchi. Diffuse emphysematous change. Multiple localizers spiculated nodules in the right upper lobe, largest 2.1 cm located 9 mm from posterior lateral pleura with interstitial tethering to the pleura. No left lung consolidation or suspicious nodularity. No effusion. No pneumothorax.. Normal chest wall structures. Normal osseous structures. Suggestion of aneurysmal dilatation of the aorta at the inferior most slice, reference coronal image 155. CT/CTA Chest W/WO Contrast IMPRESSION: Right upper lobe multifocal spiculated nodularity up to 2.1 cm in size worrisome for malignancy. Pulmonary consultation is recommended for consideration for tissue sampling. Centrilobular emphysematous change. Confluent mediastinal adenopathy worrisome for metastatic disease. Bilateral hilar lymph nodes are subcentimeter and nonspecific. Consider PET/CT. No evidence of pulmonary embolism. Concern for abdominal aneurysmal dilatation at the inferior study margin. Recommend abdominal CT. Electronically Signed: Abiodun Verma MD at 0:32 EDT ,
[2022-01-31] VITALS: BP 113/72; PULSE 88; RESP 14; O2SAT 98
[2022-01-31 00:41] VITALS: BP 113/72; PULSE 89; RESP 16; O2SAT 96
== END 2022-01-31 00:47 | disposition home or self-care (01) ==
PROVIDERS: Emergency Provider Emergency Medicine; PCP Nurse Practitioner Family; Visit Provider Emergency Medicine
DX: R07.9 Chest pain, unspecified (principal); R91.8 Other nonspecific abnormal finding of lung field; I10 Essential (primary) hypertension; F17.210 Nicotine dependence, cigarettes, uncomplicated; Z82.49 Family history of ischemic heart disease and other diseases of the circulatory system; K21.9 Gastro-esophageal reflux disease without esophagitis
CPT/HCPCS: 71046; 71275; 80053; 83690; 84484; 85025; 93005; 99284; Q9967; A4216

== ENCOUNTER → 2022-02-07 | Outpatient (CLI) | payer OTHER, SELFPAY ==
[2022-02-07 10:01] LABS: Hematocrit 40.4 % (37-47); Hemoglobin 13.4 g/dL (12.0-15.0); Mean Corp Hgb Conc 33.2 g/dL (32-36); Mean Corpuscular Hgb 29.4 pg (27.0-32.0); Mean Corpuscular Volume 88.6 fL (81-99); Mean Platelet Vol. 9.1 fl (6.2-12.0); Platelet Count 282 K/mm3 (150-450); RBC Distribution Width CV 13.3 % (11.6-14.6); RBC Distribution Width SD 43.1 fl (35.1-43.9); Red Blood Count 4.56 M/mm3 (4.2-5.4); White Blood Count 7.3 K/mm3 (4.4-11.0)
[2022-02-07 10:33] LABS: Prothrombin Time (Protime)PT. 12.9 SECONDS (11.7-14.9)
[2022-02-07 10:34] LABS: Partial Thromboplast Time 27.9 Seconds (24.1-36.2)
== END | disposition home or self-care (01) ==
PROVIDERS: PCP Nurse Practitioner Family; Referring Provider Internal Medicine Critical Care Medicine; Visit Provider Internal Medicine Critical Care Medicine
DX: R91.8 Other nonspecific abnormal finding of lung field (principal)
CPT/HCPCS: 36415; 85027; 85610; 85730

== ENCOUNTER → 2022-02-10 | Outpatient (CLI) | payer OTHER, SELFPAY ==
--- NOTE | 2022-02-10 07:09 | CT_ITS ---
EXAM: CT ABDOMEN AND PELVIS WITH INTRAVENOUS CONTRAST CLINICAL INDICATION: PAIN TECHNIQUE: Helically acquired images were obtained of the abdomen and pelvis with intravenous contrast. This CT exam was performed using one or more of the following dose reduction techniques: automated exposure control, adjustment of the mA and/or kV according to patient size, and/or use of iterative reconstruction technique. This report was created using Live[employer] report generation technology. CONTRAST: IV 100mL Isovue-300 COMPARISON: None. FINDINGS: LOWER THORAX: Centrilobular pulmonary emphysema noted at the lung bases. ABDOMEN: LIVER: Normal. Homogeneous. No focal mass. GALLBLADDER AND BILE DUCTS: Normal. No calcified gallstones. No gallbladder distention or wall edema. No intra- or extrahepatic biliary ductal dilation. PANCREAS: Normal. No focal cystic or solid mass. SPLEEN: Normal. Normal size without focal cystic or solid mass. ADRENALS: Normal. No nodules. KIDNEYS AND URETERS: Normal. Normal renal size and position. No hydronephrosis. STOMACH AND BOWEL: Moderate stool burden within the large bowel. PELVIS: APPENDIX: No evidence of acute appendicitis. BLADDER: Normal. REPRODUCTIVE: Unremarkable as visualized. No mass. ABDOMEN and PELVIS: INTRAPERITONEAL SPACE: Normal. No ascites or other fluid collection. No free air. BONES/JOINTS: Normal. No suspicious lytic or blastic abnormality. SOFT TISSUES: Normal. No discrete abdominal or pelvic wall hernia. VASCULATURE: Normal. Abdominal aorta is non-dilated. LYMPH NODES: Normal. No enlarged lymph nodes. CT/Abdomen/Pelvis WITH Contrast IMPRESSION: 1. No acute abdominal or pelvic abnormality. 2. Constipation. Electronically Signed: Rich Gomes MD at 7:56 EDT ,
== END | disposition home or self-care (01) ==
PROVIDERS: PCP Nurse Practitioner Family; Referring Provider Nurse Practitioner Family; Visit Provider Nurse Practitioner Family
DX: I77.9 Disorder of arteries and arterioles, unspecified (principal); K21.9 Gastro-esophageal reflux disease without esophagitis; R91.8 Other nonspecific abnormal finding of lung field; R59.0 Localized enlarged lymph nodes; J98.4 Other disorders of lung; F17.290 Nicotine dependence, other tobacco product, uncomplicated
CPT/HCPCS: 74177; Q9967

== ENCOUNTER 2022-02-11 11:50 | Day surgery (SDC) | payer OTHER, SELFPAY ==
--- NOTE | 2022-02-11 | ASPIG_PTH ---
PATIENT: ASIF HERNANDEZ LOC: EN U#:[id number] AGE/SX: 66/F ROOM: RE02/11/[address]: Dr. Jarred Jones MD : 1955 BED: DIS: 02/11/2022 SPEC #: [id number] RECD: 02/11/22 14:36 STATUS: RODRIGO RENico #: [id number] ANNA: 02/11/22 00:[address]: Jarred Jones DEPT: CYTOLOGY RECD BY: Arjun Aguilar ENTERED: 02/11/22 14:38 SP TYPE: ASP OUT OTHR DR: Lara Bobo, DRYING OVEN ATTENDANT-C Tissues: A - Lung, NOS B - Lung, NOS C - Lung, NOS D - Lung, NOS E - Lung, NOS F - Lung, NOS G - Lung, NOS H - Lung, NOS I - Lung, NOS J - Lung, NOS K - Lung, NOS Procedures: FNA Specimen Adequacy Special Stain Group II Surgery Specimen Level IV Cytology Other HEADER OPERATION: Endobronchial ultrasound and bronchoscopy PRE-OP DIAGNOSIS: Lung mass TISSUE SUBMITTED: A - EBUS, TBNA, site 4R #1, B - EBUS, TBNA, site 4R #2, C - EBUS, TBNA, site?4R #3, D - EBUS, TBNA, site 4R #4, E - EBUS, TBNA, site 7 #5, F - EBUS, TBNA, site 7 #6, G - EBUS, TBNA, site 7 #7, H - EBUS, TBNA, site 7 #8, I - EBUS, TBNA, site 7 #9, J - EBUS, TBNA, site?4R, K - EBUS, TBNA, site 7 DIAGNOSIS CYTOLOGY A. EBUS, TBNA, site 4R #1: Rare lymphocytes. Blood. No malignant cells present. B. EBUS, TBNA, site 4R #2: Rare atypical cells present. Abundant mucoid material. C. EBUS, TBNA, site 4R #3: Rare atypical cells present. Abundant mucoid material. D. EBUS, TBNA, site 4R #4: Rare atypical cells present. Abundant mucoid material. E. EBUS, TBNA, site 7 #5: Abundant lymphocytes present. No evidence of malignancy. F. EBUS, TBNA, site 7 #6: Abundant lymphocytes present. No evidence of malignancy. G. EBUS, TBNA, site 7 #7: Benign bronchial epithelial cells and blood. No evidence of malignancy. H. EBUS, TBNA, site 7 #8: Positive for malignant cells consistent with small cell carcinoma. I. EBUS, TBNA, site 7 #9: Negative for malignant cells. Abundant benign bronchial epithelial cells noted. J. EBUS, TBNA, site 4R (cell block): Atypical cells consistent with small cell carcinoma of the lung. See comment. K. EBUS, TBNA, site 7 (cell block): Positive for malignant cells consistent with small cell carcinoma of the lung. See comment. CAROLEE:paty 02/15/2022 COMMENT The specimen is evaluated at the time of procedure by Dr. Bennett. Rapid Onsite Evaluation: A. EBUS, TBNA, site 4R #1: Rare lymphocytes. Blood. No malignant cells present. B. EBUS, TBNA, site 4R #2: Rare atypical cells present. Abundant mucoid material. C. EBUS, TBNA, site 4R #3: Rare atypical cells present. Abundant mucoid material. D. EBUS, TBNA, site 4R #4: Rare atypical cells present. Abundant mucoid material. E. EBUS, TBNA, site 7 #5: Abundant lymphocytes present. No evidence of malignancy. F. EBUS, TBNA, site 7 #6: Abundant lymphocytes present. No evidence of malignancy. G. EBUS, TBNA, site 7 #7: Benign bronchial epithelial cells and blood. No evidence of malignancy. H. EBUS, TBNA, site 7 #8: Positive for malignant cells consistent with small cell carcinoma. I. EBUS, TBNA, site 7 #9: Negative for malignant cells. Abundant benign bronchial epithelial cells noted. J & K. Immunohistochemistry ([id number]) supports the above diagnosis. CYTOLOGY STUDY Slides are reviewed. CYTOLOGY GROSS A - Received labeled with the patient's name and and designated EBUS, TBNA, site 4R #1. The specimen consists of two stained smears for KD (Rapid Onsite Evaluation). B - Received labeled with the patient's name and and designated EBUS, TBNA, site 4R #2. The specimen consists of two stained smears for KD. C - Received labeled with the patient's name and and designated EBUS, TBNA, site 4R #3. The specimen consists of two stained smears for KD. D - Received labeled with the patient's name and and designated EBUS, TBNA, site 4R #4. The specimen consists of two stained smears for KD. E - Received labeled with the patient's name and and designated EBUS, TBNA, site 7 #5. The specimen consists of two stained smears for KD. F - Received labeled with the patient's name and and designated EBUS, TBNA, site 7 #6. The specimen consists of two stained smears for KD. G - Received labeled with the patient's name and and designated EBUS, TBNA, site 7 #7. The specimen consists of two stained smears for KD. H - Received labeled with the patient's name and and designated EBUS, TBNA, site 7 #8. The specimen consists of two stained smears for KD. I - Received labeled with the patient's name and and designated EBUS, TBNA, site 7 #9. The specimen consists of two stained smears for KD. J - Received in RPMI is 20 ml of pink, needle rinsed fluid labeled with the patient's name and and designated EBUS, TBNA, site 4R. The specimen is submitted for cell block preparation. K - Received in RPMI is 20 ml of pink, needle rinsed fluid labeled with the patient's name and and designated EBUS, TBNA, site 7. The specimen is submitted for cell block preparation. / AM:paty 02/11/2022 TC:0 CPT: 27525 x2, 56348 x2, 20288 x7, 03719 x2 ADDENDUM ADDENDUM ADDENDUM ADDENDUM ADDENDUM ADDENDUM ADDENDUM ADDENDUM ADDENDUM ADDENDUM ADDENDUM ADDENDUM ADDENDUM ADDENDUM ADDENDUM ADDENDUM ADDENDUM ADDENDUM ADDENDUM ADDENDUM ADDENDUM ADDENDUM ADDENDUM ADDENDUM ADDENDUM ADDENDUM ADDENDUM ADDENDUM ADDENDUM ADDENDUM ADDENDUM ADDENDUM ADDENDUM 03/10/2025 11:28 ADDENDUM 03/10/2025 11:28 ADDENDUM 03/10/2025 11:28 ADDENDUM 03/10/2025 11:28 ADDENDUM 03/10/2025 11:28 This addendum is added to incorporate an outside pathology consultation report. The case was examined at [facility] by Dr. Morgan (#[id number]) and the following diagnosis was rendered. A. EBUS, 4R #1, FNA: Unsatisfactory due to insufficient cellular material. Insufficient lymphocytes present. B. EBUS, 4R #2, FNA: Unsatisfactory due to insufficient cellular material. Insufficient lymphocytes present. C. EBUS, 4R #3, FNA: Unsatisfactory due to insufficient cellular material. Insufficient lymphocytes present. D. EBUS, 4R #4, FNA: Unsatisfactory due to insufficient cellular material. Insufficient lymphocytes present. E. EBUS, 7 #5, FNA: No malignant cells are identified. Lymphoid population. F. EBUS, 7 #6, FNA: No malignant cells are identified. Lymphoid population. G. EBUS, 7 #7, FNA: Unsatisfactory due to insufficient cellular material. Insufficient lymphocytes present. H. EBUS, 7 #8, FNA: Malignant cells present, consistent with small cell carcinoma. I. EBUS, 7 #9, FNA: Unsatisfactory due to insufficient cellular material. Insufficient lymphocytes present. J. EBUS, 4R, FNA: Rare malignant cells present, consistent with small cell carcinoma. K. EBUS, 7, FNA: Rare malignant cells present, consistent small cell carcinoma. Please see complete above mentioned consultation report in EMR
--- NOTE | 2022-02-11 | IMM_PTH ---
PATIENT: ASIF HERNANDEZ LOC: EN U#:[id number] AGE/SX: 66/F ROOM: RE02/11/[address]: Dr. Jarred Jones MD : 1955 BED: DIS: 02/11/2022 SPEC #: [id number] RECD: 02/15/22 09:19 STATUS: RODRIGO REQ #: [id number] ANNA: 02/11/22 00:[address]: Jarred Jones DEPT: IMMUNOHISTOCHEMISTRY RECD BY: Sonja Saenz ENTERED: 02/15/22 09:22 SP TYPE: IMMUNO OTHR DR: Lara Bobo, MEAT CUTTING BLOCK REPAIRER-C Tissues: J - Lung, NOS K - Lung, NOS Procedures: Synapto (add) NAPSIN A (add) CD56 (add) CHROMO (add) CK20 (add) CK5-6 (add) CK8 (add) TTF1 (add) 34BE12 (add) P40 (add) CK7 (initial) NSE (add) PHYSICIAN & [address] [address] SPECIMEN INFORMATION: Tissue Source: J - EBUS, TBA, site 4R, K - EBUS, TBA, site 7 Clinical Info: Lung mass Specimen Number: [id number] J & K CPT code: 54207 x2, 05159 x22 METHODOLOGY: Deparaffinized sections of prefer/formalin-fixed tissue or PAP/DQ stained slides are incubated with monoclonal/polyclonal antibodies/oligonucleotide probes. Localization is made via biotin free immunoperoxidase method. Appropriate controls are performed and reacted as expected. Results on target cell population are indicated in the following table: RESULTS: ANTIBODY / CLONE RESULT Block J CK7 (OV-TL12/30) positive, focal CK8 (86mzhjC62) positive, focal CK20 (KS20.8) negative 34BE12 (34BE12) negative CD56 (123C3.D5) positive Chromo (LK2H10) positive, focal Synapto (polyclonal) positive, rare NSE Neuron Specific Enolase positive TTF-1 (8G7G3/1) negative Napsin A (Rabbit Polyclonal) positive, dim CK5-6 (D5 & 1684) negative P40 (BC28) negative Block K CK7 (OV-TL12/30) negative CK8 (83qvuyQ25) positive, focal CK20 (KS20.8) negative 34BE12 (34BE12) negative CD56 (123C3.D5) positive Chromo (LK2H10) positive, focal Synapto (polyclonal) negative NSE Neuron Specific Enolase positive, rare TTF-1 (8G7G3/1) negative Napsin A (Rabbit Polyclonal) positive, dim CK5-6 (D5 & 1684) negative P40 (BC28) negative These tests were developed and their performance characteristics determined by [facility]. They may not have been cleared or approved by the U.S. Food and Drug Administration. The FDA has determined that such clearance or approval is not necessary. The above immunohistochemical/dualISH markers are ordered and reviewed by the Pathologist. INTERPRETATION: TRUMAN DIAZ, site 4R: Consistent with small cell carcinoma of lung. TRUMAN TEJADA, site 7: Consistent with small cell carcinoma of lung. AM:paty 02/15/2022
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
[2022-02-11 12:22] VITALS: BP 120/74; PULSE 100; RESP 18; TEMP 36.4; O2SAT 96; BMI 25.8
[2022-02-11] MEDS: Lactated Ringers 1,000 ML 15 ML IV (12:31)
[2022-02-11] MEDS: Lidocaine Jelly 2% 20 ML Syringe (URO-JET) 1 APPLIC (13:30)
[2022-02-11 14:20] VITALS: BP 120/74; BP 138/100; PULSE 83; RESP 16; TEMP 36.2; O2SAT 100
[2022-02-11 14:25] VITALS: BP 108/66; BP 120/74; PULSE 82; RESP 16; O2SAT 96
[2022-02-11 14:30] VITALS: BP 110/65; BP 120/74; PULSE 79; RESP 16; O2SAT 94
[2022-02-11 14:34] VITALS: BP 116/75; BP 120/74; PULSE 86; RESP 16; TEMP 36.7; O2SAT 98
--- NOTE | 2022-02-11 14:55 | OP.BRONCH_ITS ---
Patient Name: Gabrielle Rios Procedure Date: 02/11/2022 12:56 PM Date of : 1955 Age: 66 Procedure: Bronchoscopy Indications: Nodule of lung, Mediastinal adenopathy Providers: Jarred Jones MD Medicines: See the Anesthesia note for documentation of the administered medications Complications: No immediate complications Procedure: Pre-Anesthesia Assessment: - Prior to the procedure, a History and Physical was performed, and patient medications and allergies were reviewed. The patient's tolerance of previous anesthesia was also reviewed. The risks and benefits of the procedure and the sedation options and risks were discussed with the patient. All questions were answered, and informed consent was obtained. Prior Anticoagulants: The patient has taken no previous anticoagulant or antiplatelet agents. ASA Grade Assessment: II - A patient with mild systemic disease. After reviewing the risks and benefits, the patient was deemed in satisfactory condition to undergo the procedure. - A History and Physical has been performed. The patient's medications, allergies and sensitivities have been reviewed. - The risks and benefits of the procedure and the sedation options and risks were discussed with the patient. All questions were answered and informed consent was obtained. - After reviewing the risks and benefits, the patient was deemed in satisfactory condition to undergo the procedure. After I obtained informed consent, the scope was passed under direct vision. Throughout the procedure, the patient's blood pressure, pulse, and oxygen saturations were monitored continuously. The ultrasound bronchoscope was introduced through the mouth, via laryngeal mask airway and advanced to the tracheobronchial tree. The procedure was accomplished without difficulty. The patient tolerated the procedure well. Findings: The laryngeal mask airway is in good position. The vocal cords appear normal. The subglottic space is normal. The trachea is of normal caliber. The emery is sharp. The tracheobronchial tree was examined to at least the first subsegmental level. Bronchial mucosa and anatomy are normal; there are no endobronchial lesions, and only mild secretions. Some bronchomalacia noted on the left main, approximately 80% closure. The scope was withdrawn and replaced with the EBUS bronchoscope to accomplish the ultrasound examination. Lymph Nodes: An endobronchial ultrasound endoscope was utilized to systematically examine the right lower paratracheal region (level 4R) and subcarinal mediastinum (level 7) in order to assist with fine needle aspiration. Lymph node sizing was performed via endobronchial ultrasound for suspected lung cancer. Sampling by transbronchial needle aspiration was also performed using an Olympus EBUS-TBNA 19 gauge needle in the right lower paratracheal region (level 4R) and subcarinal mediastinum (level 7) and sent for routine cytology. - The 4R (lower paratracheal) node was not measured. Four samples with the needle were obtained. - The 7 (subcarinal) node was not measured. Five samples with the needle were obtained. Lymph Nodes: Rapid On-Site Evaluation (KD): Preliminary cytology was suggestive of atypical cells (final results are pending) in the right lower paratracheal region (level 4R). Preliminary cytology was suggestive of small cell carcinoma (final results are pending) in the subcarinal mediastinum (level 7). Impression: - Nodule of lung - Mediastinal adenopathy - The airway examination was normal. - Endobronchial ultrasound was performed. - Lymph node sizing and sampling was performed. Tissue was obtained from this exam. The preliminary diagnosis is highly suspicious for malignancy. - Rapid On-Site Evaluation (KD): Preliminary cytology was suggestive of atypical cells in node level 4R and of small cell carcinoma in node level 7 (final results are pending). Recommendation: - The patient will be observed post-procedure, until all discharge criteria are met. - Await cytology results. - Patient has a contact number available for emergencies. The signs and symptoms of potential delayed complications were discussed with the patient. Return to normal activities tomorrow. Written discharge instructions were provided to the patient. - Follow up with bronchoscopist in one week. Procedure Code(s): --- Professional --- 95273, Bronchoscopy, rigid or flexible, including fluoroscopic guidance, when performed; with endobronchial ultrasound (EBUS) guided transtracheal and/or transbronchial sampling (eg, aspiration[s]/biopsy[ies]), 3 or more mediastinal and/or hilar lymph node stations or structures Diagnosis Code(s): --- Professional --- R91.1, Solitary pulmonary nodule R59.0, Localized enlarged lymph nodes R09.89, Other specified symptoms and signs involving the circulatory and respiratory systems CPT copyright 2017 [employer]. All rights reserved. The codes documented in this report are preliminary and upon airplane coverer review may be revised to meet current compliance requirements. MD Jarred Serrano MD 02/11/2022 2:55:01 PM This report has been signed electronically. Number of Addenda: 0 Note Initiated On: 02/11/2022 12:56 PM
[2022-02-11 15:11] VITALS: BP 120/74
== END 2022-02-11 15:16 | disposition home or self-care (01) ==
LOC: EN 11:51 → AC 11:55
PROVIDERS: PCP Nurse Practitioner Family; Referring Provider Nurse Practitioner Family; Visit Provider Internal Medicine Critical Care Medicine
PROC: BB4BZZZ Ultrasonography of Pleura (ICD-10-PCS; CPT 31653; principal; 2022-02-11 12:30)
DX: C34.90 Malignant neoplasm of unspecified part of unspecified bronchus or lung (principal); I77.811 Abdominal aortic ectasia; F17.200 Nicotine dependence, unspecified, uncomplicated; R91.8 Other nonspecific abnormal finding of lung field; R59.0 Localized enlarged lymph nodes; R06.00 Dyspnea, unspecified
CPT/HCPCS: 31653; 88161; 88172; 88305; 88313; 88341; 88342; J7120; J2405

== ENCOUNTER → 2022-02-14 | Outpatient (CLI) | payer OTHER, SELFPAY ==
--- NOTE | 2022-02-15 10:04 | PFT ---
INTRODUCTION: The patient is a 66-year-old female that presents for pulmonary function studies secondary to a diagnosis of dyspnea. Respiratory therapy reported good patient effort. Bronchodilators were used during testing. INTERPRETATION: Forced expiration spirometry demonstrates the presence of a mild large airways obstructive ventilatory defect. There was no significant response to aerosolized bronchodilators. Spirograms are of good quality but do not plateau indicating slow emptying of the lungs. Body plethysmography was performed and demonstrated lung volumes to be within normal limits. Diffusing capacity by single breath CO was likewise within normal limits. IMPRESSION: Irreversible mild large airways obstructive ventilatory defect with preserved lung volumes and diffusing capacity.
== END | disposition home or self-care (01) ==
PROVIDERS: PCP Nurse Practitioner Family; Referring Provider Internal Medicine Critical Care Medicine; Visit Provider Internal Medicine Critical Care Medicine
DX: R06.00 Dyspnea, unspecified (principal)
CPT/HCPCS: 94060; 94726; 94729

== ENCOUNTER → 2022-02-17 | Outpatient (CLI) | payer OTHER, SELFPAY ==
[2022-02-17 11:29] VITALS: PULSE 109; PULSE 110; PULSE 112; PULSE 113; PULSE 116; PULSE 117; PULSE 121; O2SAT 100; O2SAT 93; O2SAT 97; O2SAT 98; O2SAT 99
--- NOTE | 2022-02-18 10:28 | PCM.PSN.6M ---
PSN 6 Minute Walk Test 6 Minute Walk Test 6 Minute Walk Test: 6 Minute Walk Test PSN:6-Minute Walk Test Start: 02/17/22 11:29 Freq: Status: Active Protocol: RESP.6MINW Document 02/17/22 11:29 KERMIT (Rec: 02/17/22 11:31 [id number]) 6 Minute Walk Test Date Performed 02/17/22 Time Performed 11:15 Height 5 ft 6 in Weight: 160 lb Weight in Pounds 160.[address]: Jarred Jones FIO2 (% Oxygen) 21 Assistive device used: None Pre-test Oxygen Delivery Method Room Air Pulse Ox (%) 98 Pulse Rate (60-100 beats/min) 110 H Dyspnea Larissa Scale (0-10) 0 Exertion Larissa Scale (6-20) 6 1st minute Oxygen Delivery Method Room Air Pulse Ox (%) 97 Pulse Rate (60-100 beats/min) 109 H 2nd minute Oxygen Delivery Method Room Air Pulse Ox (%) 98 Pulse Rate (60-100 beats/min) 113 H 3rd minute Oxygen Delivery Method Room Air Pulse Ox (%) 97 Pulse Rate (60-100 beats/min) 117 H 4th minute Oxygen Delivery Method Room Air Pulse Ox (%) 97 Pulse Rate (60-100 beats/min) 117 H 5th minute Oxygen Delivery Method Room Air Pulse Ox (%) 93 Pulse Rate (60-100 beats/min) 116 H 6th minute Oxygen Delivery Method Room Air Pulse Ox (%) 100 Pulse Rate (60-100 beats/min) 121 H Post-test Oxygen Delivery Method Room Air Pulse Ox (%) 99 Pulse Rate (60-100 beats/min) 112 H Dyspnea Larissa Scale (0-10) 2 Exertion Larissa Scale (6-20) 8 Full Laps Walked 21 Partial Lap, Number of Tiles Walked 24 Total Distance Walked (ft) 1263 Interpretation Interpretation: The patient ambulated 1263 feet over the course of 6 minutes beginning on room air without assistive devices. Pretesting oxygen saturation was noted to be 98% on room air. With ambulation, the joycelyn oxygen saturation was 93%. This represents a significant exertional oxygen desaturation. Recommendations Recommendations: There is no indication for the use of supplemental oxygen at this time. However, close interval follow-up is recommended, given the degree of oxygen desaturation noted during this study.
== END | disposition home or self-care (01) ==
LOC: PSN 11:10
PROVIDERS: PCP Nurse Practitioner Family; Referring Provider Internal Medicine Critical Care Medicine; Visit Provider Internal Medicine Critical Care Medicine
DX: R06.00 Dyspnea, unspecified (principal)
CPT/HCPCS: 94618

== ENCOUNTER → 2022-02-23 | Outpatient (CLI) | payer OTHER, SELFPAY ==
--- NOTE | 2022-02-23 10:30 | PET_ITS ---
EXAMINATION: FDG PET/CT ? INDICATIONS: 66-year-old female with a history of primary lung carcinoma, presenting for presumed initial staging examination. ? COMPARISON EXAMINATION: CT of the chest report dated 01/30/2022, CT of the abdomen and pelvis report 02/10/2022 ? INDEX LESION SIZE SUV INTERPRETATION Right upper lung 26.7 m 9.2 Fulfills quantitative criteria for viable neoplasm ? Mediastinal structures 57.7 mm largest 12.3 Fulfills quantitative criteria for viable neoplasm ? TECHNIQUE: Following the intravenous administration of 12.438 mCi of F-18 deoxyglucose via the left antecubital fossa, multiplanar image acquisitions of the neck, chest, abdomen and pelvis to the level of the midthigh, obtained at one-hour post radiopharmaceutical administration contemporaneously interpreted with CT of the chest report dated 01/30/2022, CT of the abdomen and pelvis report 02/10/2022 reveal: ? SERUM GLUCOSE LEVEL:? 96 mg/dL? HEIGHT:?? 66 inches WEIGHT:?? 160 pounds ? FINDINGS: ? HEAD/NECK:? There is no evidence of abnormal increased glucose metabolism in the pharyngeal mucosal space, parapharyngeal space, oropharynx, bilateral-lateral and anterior neck, hypopharynx and distribution of the larynx. ? The visualized portion of the cerebral cortical-subcortical structures demonstrate symmetric and preserved glucose metabolism. ? CHEST:? Increased FDG concentration are manifest in several locations within the right upper lung, right upper lobe. The calculated maximum standard uptake value is 9.2. The largest metabolic, morphologic abnormality demonstrates a maximal axial diameter of 26.7 mm. Facilitated FDG uptake is noted in the right lower paratracheal, subaortic, and subcarinal lymph node distributions involving lymph node stations 4R, 5, 7. The calculated maximum standard uptake value is 12.3. The maximal axial diameter of the largest aggregate of soft tissue is 57.7 mm. ? CT of the chest demonstrates the following anatomic characteristics: Bilateral axillary soft tissue densities are nonglucose avid. A pericardial effusion, thickening demonstrates no evidence of increased tracer uptake. Atherosclerotic calcification is defined in the thoracic aorta without evidence of dilatation, aneurysm formation. Coronary arterial calcification is observed. There are no additional parenchymal densities-nodules defined in the right and left hemithorax with quantitatively significant increased FDG uptake. ? ABDOMEN/PELVIS:? Normal physiologic distribution of the radiopharmaceutical is identified in the hepatic (3.5) and splenic parenchyma, both renal units, urinary bladder, and visualized intestinal tract. ? CT of the abdomen and pelvis is remarkable for the following: Atherosclerotic calcification is defined in the abdominal aorta without evidence of dilatation, aneurysm formation. Pelvic arterial calcification is observed. ? SKELETAL:? There is no evidence of quantitatively significant enhanced glucose metabolism on meticulous inspection of the appendicular and axial skeletal structures. ? Degenerative changes defined in the thoracic and lumbar spine demonstrate no evidence of increased glucose metabolism. ? PET/PET/CT Tumor Base -Thigh Subs IMPRESSION: 1. ABNORMAL EXAMINATION INDICATIVE OF MALIGNANT-VIABLE NEOPLASM. 2. Increased radiopharmaceutical concentration defined in the right upper lung, right upper lobe fulfills quantitative criteria for viable malignant transformation. 3. Enhanced glucose metabolism manifest in the mediastinal structures fulfills quantitative criteria for viable centrally located thoracic neoplasia. (Roopa et al, Journal of Clinical Oncology, 16:2142, 1998). Electronic Signature Kristofer Odonnell D.O. Accurate Quantification of SUVs for this report are calculated using the exclusive [employer]. (U.S. Patent No. [phone] [id number]). Standardization and correction of the FDG SUV metric via [employer] technology allow for vendor non-specific objective quantitative examination comparison and optimization of the sensitivity and specificity of the FDG PET-CT examination. Electronically Signed: Kristofer Odonnell, at 18:35 EST ,
== END | disposition home or self-care (01) ==
PROVIDERS: PCP Nurse Practitioner Family; Referring Provider Internal Medicine Critical Care Medicine; Visit Provider Internal Medicine Critical Care Medicine
DX: C34.11 Malignant neoplasm of upper lobe, right bronchus or lung (principal)
CPT/HCPCS: 78815; A9552

== ENCOUNTER → 2022-02-28 | Outpatient (CLI) | payer OTHER, SELFPAY ==
--- NOTE | 2022-02-28 06:38 | MRI_ITS ---
EXAM: MR HEAD WITHOUT AND WITH INTRAVENOUS CONTRAST CLINICAL INDICATION: Staging new dx of lung ca, h/o meningioma TECHNIQUE: Multiplanar and multisequence MR images of the brain were obtained without and with intravenous contrast. This report was created using [employer] report generation technology. CONTRAST: IV 15cc Clariscan COMPARISON: MRI brain with and without contrast 03/25/2016. FINDINGS: BRAIN AND EXTRA-AXIAL SPACES: Small enhancing planum sphenoidale meningioma is barely visible without postcontrast coronal sections. This is unchanged. No other enhancing lesions intra-axially and extra-axially. T2 and FLAIR hyperintensity foci in the white matter of both cerebral hemispheres are chronic white matter ischemic changes. They are unchanged. Normal ventricles and cisterns. No intra- or extra-axial hemorrhage. Posterior fossa structures are unremarkable. No hydrocephalus. SELLA: Unremarkable. Normal sella turcica, pituitary gland, infundibular stalk, optic chiasm and hypothalamus. AUDITORY SYSTEM: Unremarkable. The internal auditory canals are patent. BONES/JOINTS: Unremarkable. No discrete lytic or blastic abnormalities. SINUSES: Unremarkable as visualized. Clear. MASTOID AIR CELLS: Unremarkable as visualized. Clear. ORBITS: Unremarkable as visualized. Both globes, extraocular muscles, optic nerves and retrobulbar fat appear unremarkable. VASCULATURE: Unremarkable as visualized. Normal flow voids in the major intracranial circulation. MRI/Brain W/WO Contrast IMPRESSION: 1. No MRI evidence of intracranial metastatic disease. 2. Small barely visible enhancing planum sphenoidale meningioma without postcontrast T1 coronal views is unchanged. 3. Chronic white matter ischemic changes in both cerebral hemispheres are unchanged. Electronically Signed: Von Sidhu MD at 8:33 EST ,
== END | disposition home or self-care (01) ==
PROVIDERS: PCP Nurse Practitioner Family; Referring Provider Internal Medicine Critical Care Medicine; Visit Provider Internal Medicine Critical Care Medicine
DX: C34.11 Malignant neoplasm of upper lobe, right bronchus or lung (principal)
CPT/HCPCS: 70553; A9575

== ENCOUNTER 2022-03-03 10:47 | Day surgery (SDC) | payer OTHER, SELFPAY ==
[2022-03-03] VITALS (7 sets, daily range): BP systolic 90–108; BP diastolic 61–73; PULSE 92–106; RESP 18; TEMP 36.3–36.4; O2SAT 95–100; BMI 26.1
[2022-03-03] MEDS: Lactated Ringers 1,000 ML 15 ML IV (11:27)
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
[2022-03-03] MEDS: Bupivacaine 0.25% 30 ML Vial (12:23)
[2022-03-03] MEDS: Lidocaine 1% (30 ml sdv) 30 ML Vial (12:23)
--- NOTE | 2022-03-03 13:05 | RAD_ITS ---
STUDY: X-RAY CHEST REASON FOR EXAM: Female, 66 years old. Port placement. TECHNIQUE: Single AP portable view of the chest. COMPARISON: Comparison is made with prior examination done 01/30/2022. FINDINGS: A left-sided Port-A-Cath has been placed. The tip is at the junction of the superior vena cava and right atrium. EKG electrodes are seen. Hyperinflation. Stable nodular density in the right upper lobe. There is no demonstrated pleural abnormality. Normal size heart. Normal mediastinum and meño. Normal visualized pulmonary arteries. Normal visualized aortic arch and descending thoracic aorta. Normal visualized thoracic spine. Normal visualized ribs, clavicles, and shoulders. There is no demonstrated abnormality of the visualized soft tissue structures of the upper abdomen. RAD/CXR for Line Placement IMPRESSION: The tip of the left roderick catheter is at the junction of the superior vena cava and right atrium. Stable right upper lobe pulmonary nodule. Electronically Signed: Manny Alarcon MD at 13:35 EST ,
--- NOTE | 2022-03-03 13:05 | OP.PCM_ITS ---
Report of Operation Date of Procedure: 03/03/22 Pre-Operative Diagnosis: z45.2, lung cancer Post-Operative Diagnosis: Same Surgery/Procedure Performed:: 1. Placement of left IJ Port-A-Cath 2. Use of fluoroscopy 3. Use of ultrasound Surgeon: Sugar Ramírez Type of Anesthesia: Local MAC Anesthesiologist: Cesar Israel Special Medications: Clindamycin 900 mg IV x1 Specimen's removed: None Estimated Blood Loss (mL): < 10 cc Description of Procedure: After informed consent was given, the patient was brought to the operating room and placed in the supine position. Appropriate time out protocol was followed. Patient was then given IV conscious sedation for anesthesia. The patient's le ft upper chest and neck were then prepped with a surgical skin preparation and sterile surgical drapes were placed. After proper landmarks were ascertained, the skin at the upper left chest area was then infiltrated with 1:1 mixture of 1% lidocaine with epinephrine and 0.5% marcaine. A needle trocar was then inserted into the left internal jugular vein with ultrasound guidance-multiple vessels were viewed with u/s and the left IJ was chosen-- and there was good aspiration of venous blood. A wire was then threaded into the needle trocar and this was visualized under fluoroscopy to ensure that the wire was in the superior vena cava. Once this was done, then the needle trocar was removed. A small skin dank was made with an 11 blade knife at the wire entrance site. The dilator with the introducer sheath attached was then placed over the wire into the left internal jugular vein via the Seldinger technique and this was visualized under fluoroscopy. The dilator and sheath were in proper position as visualized by fluoroscopy. A subcutaneous pocket was then created caudad to the catheter insertion site. A transverse skin incision was made after the skin and subcutaneous tissues were infiltrated with local anesthetic. Blunt dissection was then used to create a space large enough for placement of the subcutaneous port. The catheter was then tunneled into the subcutaneous pocket. The wire and dilator were then removed. The catheter was then threaded into the introducer sheath and was positioned with its tip at the junction of the superior vena cava and the right atrium as visualized under fluoroscopy. The excess catheter was transected. The catheter was then attached to the subcutaneous port using manufacturers guidelines. The catheter was flushed with a heparin saline mixture prior to placement. Hemostasis was carefully controlled with electrocautery. The port was sutured to the subcutaneous fascia using 2-0 Vicryl suture at two sites. The port was then placed in the subcutaneous pocket. The incision were reapproximated with interrupted subdermal 3-0 vicryl sutures. The skin was reapproximated with 3-0 nylon suture in a interrupted fashion. Steristrips were used for reinforcement of the skin closure at IJ insertion site and a sterile opsite dressings were applied. The patient tolerated the procedure well. Implants Used: [employer] PowerPort isp M.R.I. 6Fr Lot [id number] [id number] Grafts/Implants Used: [employer] PowerPort isp M.R.I. 6Fr Lot [id number] [id number] Complications none
--- NOTE | 2022-03-03 13:08 | DCINST_ITS ---
Discharge Instructions Diet Discharge Diet: Light diet - advance as tolerated Activity Discharge Activity: May Not Drive (while taking narcotic pain medications.) May shower in (days): 1 Lifting Restrictions: no lifting >20 lbs x 2 wks, no strenuous exercise for 4 wks Dressing / Incision Call your doctor if your incision/area has: Continuous Slow Oozing, Sudden Increased Bleeding, Increased Pain/ Swelling, Increased Redness, Foul Smelling Discharge and Swelling at the incision site Call your doctor if you observe: Fever of 101 or Higher Remove Dressing in: 2 days Cleanse incision/area with: Soap & Water Additional Dressing/Incision Instructions:: Steri-Strips will fall off in 7 to 10 days, if they do not fall off okay to remove after 10 days. Follow Up Care Please Follow Up With: Sugar Ramírez MD When: Call the office for a follow-up appointment 2 weeks; after 5 PM and on the weekends call [phone] with any concerns. Test Results: Test results from this visit will be discussed in further detail at your follow- up appointment, if applicable. Discharge Plan Admission Attending Provider: Sugar Ramírez Primary Care Provider: Lara Bobo NP Discharge Orders/Prescriptions Prescriptions: Continued losartan 50 mg tablet 50 mg PO QDAY amitriptyline 25 mg tablet 25 mg PO QHS sennosides [Senna Concentrate] 8.6 mg tablet 8.6 mg PO BID PRN (Reason: Constipation) omeprazole 40 mg capsule,delayed release(DR/EC) 40 mg PO DAILY prochlorperazine maleate 10 mg tablet 10 mg PO Q6H PRN (Reason: nausea and vomiting) Qty: 30 2RF ondansetron 8 mg tablet,disintegrating 8 mg PO Q8H PRN (Reason: nausea and vomiting) Qty: 30 2RF lidocaine-prilocaine 2.5-2.5 % cream 1 applic topical ONCE PRN (Reason: port access) 30 Days Qty: 30 2RF Referrals / Follow Up: Lara Bobo OFFSET PRESS OPERATOR HELPER, OFFSET PRESS OPERATOR HELPER-C [Primary Care Provider] - Disposition Disposition (needs filled in before D/C Order can be placed): Home, Self Care
== END 2022-03-03 14:10 | disposition home or self-care (01) ==
LOC: SDC 10:48 → AC 10:52
PROVIDERS: PCP Nurse Practitioner Family; Visit Provider Surgery
PROC: (CPT 36561; principal; 2022-03-03 14:15)
DX: Z45.2 Encounter for adjustment and management of vascular access device (principal); C34.11 Malignant neoplasm of upper lobe, right bronchus or lung; F17.210 Nicotine dependence, cigarettes, uncomplicated; I10 Essential (primary) hypertension
CPT/HCPCS: 36561; 00532; 71045; 77001; J7120; J2405

== ENCOUNTER → 2022-03-22 | Outpatient (CLI) | payer OTHER, SELFPAY ==
--- NOTE | 2022-03-22 11:02 | BI_ITS ---
MAMMOGRAPHY - BILATERAL SCREENING REASON FOR EXAM: Female, 66 years old. Routine annual screening examination. PERTINENT HISTORY: Sister with breast cancer. Mother with breast cancer. TECHNIQUE: Digital bilateral breast narendra (3D mammographic acquisition) in the CC and MLO projections. 2-D mediolateral oblique (MLO) and craniocaudad (CC) views of both breasts were obtained. CAD: Full Field Digital Mammography with Computer Added Detection was performed. COMPARISON: Comparison is made with prior study dated 03/04/2021 and 11/11/2019. FINDINGS: Breast Composition: The breasts are heterogeneously dense, which may obscure small masses. There are no dominant masses or suspicious calcifications. Stable small benign-appearing bilateral axillary nodes. No other significant abnormalities are identified. There has been no significant change since the prior study. BI/SCRN MAMM (CAD)W/NARENDRA BILAT IMPRESSION: Stable bilateral screening mammogram. Yearly follow-up mammogram recommended. (A) ASSESSMENT CATEGORY: BIRADS Category 2: Benign. A letter regarding these results will be sent to the patient by the facility within 30 days. Approximately 10% of breast cancers are not detected by mammography. A normal mammogram should not delay biopsy of a clinically suspicious abnormality. [id number] Electronically Signed: Manny Alarcon MD at 13:46 EST ,
== END | disposition home or self-care (01) ==
LOC: OPBI 11:00
PROVIDERS: PCP Nurse Practitioner Family; Visit Provider Nurse Practitioner Family
DX: Z12.31 Encounter for screening mammogram for malignant neoplasm of breast (principal); Z80.3 Family history of malignant neoplasm of breast
CPT/HCPCS: 77063; 77067

== ENCOUNTER 2022-03-30 12:01 | Emergency (ER) | payer OTHER, SELFPAY ==
[2022-03-30 12:07] VITALS: BP 140/87; PULSE 104; RESP 16; TEMP 36.9; O2SAT 100; BMI 26.6
--- NOTE | 2022-03-30 12:52 | EDS_ITS ---
HPI History of Present Illness Chief Complaint: Nausea/Vomiting Informant: patient Onset/Context/Timing Onset: Today Context: Sudden Onset Timing: Continuous Quality: Lightheaded Location: Generalized Worsened by: Nothing Relieved by: Nothing Narrative Narrative: Patient presents with nausea that began today. Patient states that she had recent chemotherapy. Patient states she took a Zofran ODT this morning but this did not help. Patient denies any vomiting. Patient states she was at the oncologist office yesterday who did some blood work. Patient states that she was told that she was becoming dehydrated. Patient states she was given the option to stay for IV fluids or go home and drink fluids. Patient opted to go home and drink fluids but is unsure if she drank enough. Patient states she started becoming lightheaded this morning. PFSH [facility] Medical History Alcohol use Anxiety Cancer Cardiology follow-up encounter Chest pain Chronic cough Chronic renal failure Constipation COPD (chronic obstructive pulmonary disease) Depression Emphysema, unspecified Encounter for education Gastric reflux History of alcohol abuse History of stress test Hypertension Injury of head and neck Leg cramps Mild depression Post-menopausal Regional lymph node metastasis present Shortness of breath on exertion Smoker Thrombocytopenia Vitamin D deficiency Wears dentures Wears glasses Home Medications amitriptyline 25 mg tablet 25 mg PO QHS 11/21/17 [History Last Taken Unknown] losartan 50 mg tablet 50 mg PO QDAY 11/21/17 [History Last Taken 03/03/22 05:30] sennosides 8.6 mg tablet (Senna Concentrate) 8.6 mg PO BID PRN Constipation 11/21/17 [History Last Taken Unknown] lidocaine-prilocaine 2.5 %-2.5 % topical cream 1 applic topical ONCE PRN port access 30 days #30 grams 03/02/22 [Rx Last Taken Unknown] ondansetron 8 mg disintegrating tablet 8 mg PO Q8H PRN nausea and vomiting #30 tabs 03/02/22 [Rx Last Taken Unknown] prochlorperazine maleate 10 mg tablet 10 mg PO Q6H PRN nausea and vomiting #30 tabs 03/02/22 [Rx Last Taken Unknown] pantoprazole 40 mg tablet,delayed release 40 mg PO DAILY #37 tabs 03/03/22 [Rx Last Taken Unknown] MAGIC MOUTH WASH (BMX) 180 mL suspension 15 ml PO .qid PRN pain #180 mL 03/15/22 [Rx Last Taken Unknown] famotidine 10 mg tablet (Pepcid AC) 10 mg PO DAILY PRN Acid Reflux 03/15/22 [History Last Taken Unknown] Allergy/AdvReac Type Severity Reaction Status Date / Time amoxicillin [From Augmentin] Allergy Intermediate stomach Verified 03/29/22 09:30 pain clavulanic acid Allergy Intermediate stomach Verified 03/29/22 09:30 [From Augmentin] pain Family History Father Alcoholism High cholesterol Hypertension Alzheimer disease Mother Alcoholism Anxiety Cancer unknown primary diagnosis High cholesterol Hypertension Grandfather Alcoholism Grandmother Alcoholism Cancer possibly had cancer but not confirmed Sister Breast cancer, Onset Age: 60 High cholesterol Hypertension Aunt Cancer pancreatic Uncle Lung cancer Surgical History History of esophagogastroduodenoscopy (EGD) history of left eye surgery History of lung biopsy History of vascular access device Hx of colonoscopy Hx of surgical procedure Social History household members: significant other 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, 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 Smoking Status: Current every day smoker tobacco type: cigarettes Tobacco: How many years used: 50 second hand exposure: Yes alcohol intake: former year quit: 2014 details: quit 7 years ago 2014 substance use type: does not use diet: other caffeine: Yes Type: coffee Number of servings: 3 what type of physical activity do you participate in: walking frequency: 1-2 times per week ROS ROS ED Constitutional Constitutional ED: Denies chills or fever(s) Eyes Eyes: Denies blurry vision or change in vision ENT ENT ED: Denies rhinorrhea or sore throat Cardiovascular Cardiovascular: Denies chest pain or palpitations Respiratory/Chest Respiratory/Chest: Denies cough or dyspnea Gastrointestinal Gastrointestinal: Reports nausea; Denies abdominal pain or vomiting Genitourinary Genitourinary ED: Denies dysuria or hematuria Musculoskeletal Musculoskeletal: Reports neck pain; Denies back pain Integumentary Denies abscess or rash Neurologic Neurologic: Denies headache(s) or weakness Psychiatric Psychiatric: Reports anxiety Allergic/Immunologic Allergic/Immunologic ED: Denies mouth swelling or urticaria EXAM Physical Exam Const Vital Signs: 03/30/22 12:07 03/30/22 13:18 Temperature 98.4 F Temperature Source Oral Pulse Rate 104 H 99 Respiratory Rate 16 20 H Blood Pressure 140/87 H 96/61 Blood Pressure Mean 104 72 Pulse Ox 100 100 Oxygen Delivery Method Room Air Room Air Positive well nourished and well developed General Appearance ED: well developed HEENT Reports moist mucous membranes Neck supple and no JVD Resp normal respiratory effort and clear to auscultation bilaterally Cardio regular rate, regular rhythm and no murmurs GI normal to inspection, nondistended, normoactive bowel sounds and non-tender Palpation: soft Extremity normal to inspection General Extremety ED: Negative for edema or tenderness General Extremity: Negative for edema Neuro oriented x3, CN's II-XII intact bilaterally and no sensory deficits noted Sensorium / Orientation: alert Motor Exam: strength 5/5 throughout Psych mental status grossly normal Skin no rashes or lesions noted MDM MDM MDM Narrative Medical decision making narrative: Patient was given IV fluids here. Patient was given a dose of Tylenol. CBC shows a white blood cell count of 22.1. There are 6 bands and 63 neutrophils. There are 5 monocytes and 1 metamyelocyte and 1 myelocyte. Platelets 459. Comprehensive metabolic profile shows a creatinine of 1.50. This is slightly increased from previous result of 1.16. Lipase was normal. Urinalysis does not show any evidence of urinary tract infection. Patient is feeling better on reevaluation. Patient states her chemotherapy medications are supposed to cause an increase in her white blood cell count. Case was discussed with Dr. Munson. He stated that the leukocytosis is a normal reaction to the chemotherapy agents. Patient will follow-up with Dr. Munson. Patient feels better and wants to go home. Patient understands and is agreeable with the plan. All questions were answered. Lab Data Attestation: I reviewed the patient's lab results. Labs: Laboratory Results - last 24 hr 03/30/22 03/30/22 03/30/22 11:45 11:45 13:45 WBC 22.1 H RBC 4.69 Hgb 13.0 Hct 40.3 MCV 85.9 MCH 27.7 MCHC 32.3 RDW Std Deviation 41.5 RDW Coeff of Davida 13.3 Plt Count 59 L MPV 9.8 Neut % (Auto) Not Reportable Absolute Neuts (auto) 15.2 H Absolute Lymphs (auto) 5.30 H Total Counted 100 Neutrophils % (Manual) 63 Band Neutrophils % 6 H Lymphocytes % (Manual) 24 Monocytes % (Manual) 5 Metamyelocytes % 1 Myelocytes % 1 H Diff Path Review May foll Platelet Estimate MKD DEC RBC Morphology NORM C+C Sodium 137 Potassium 4.4 Chloride 104 Carbon Dioxide 25.0 Anion Gap 8 BUN 9 Creatinine 1.50 H Estim Creat Clear Calc 35.47 Est GFR (MDRD) Af Amer 45 L Est GFR (MDRD) Non-Af 37 L BUN/Creatinine Ratio 6.0 L Glucose 163 H Calcium 9.7 Total Bilirubin 0.50 AST 23 ALT 26 Alkaline Phosphatase 132 H Total Protein 8.1 Albumin 4.2 Globulin 3.9 Albumin/Globulin Ratio 1.1 Lipase 93 Urine Color Straw Urine Clarity Clear Urine pH 8.0 Ur Specific Wendell 1.010 Urine Protein 30 H Urine Glucose (UA) Normal Urine Ketones Negative Urine Occult Blood Negative Urine Nitrite Positive H Urine Bilirubin Negative Urine Urobilinogen Normal Ur Leukocyte Esterase 500 H Urine RBC 0 SEEN Urine WBC 0-5 SEEN Ur Squamous Epith Cells 0-5 SEEN Urine Bacteria RARE Urine Mucus 0 SEEN Discharge Plan Triage Chief Complaint: Nausea/Vomiting ED Provider: Cesar Barbour Dx/Rx/DC Orders Clinical Impression: Dehydration, Small cell lung cancer, right upper lobe, Thrombocytopenia Instructions: ED Dehydration (Adult) Prescriptions: No Action losartan 50 mg tablet 50 mg PO QDAY amitriptyline 25 mg tablet 25 mg PO QHS sennosides [Senna Concentrate] 8.6 mg tablet 8.6 mg PO BID PRN (Reason: Constipation) prochlorperazine maleate 10 mg tablet 10 mg PO Q6H PRN (Reason: nausea and vomiting) Qty: 30 2RF ondansetron 8 mg tablet,disintegrating 8 mg PO Q8H PRN (Reason: nausea and vomiting) Qty: 30 2RF lidocaine-prilocaine 2.5-2.5 % cream 1 applic topical ONCE PRN (Reason: port access) 30 Days Qty: 30 2RF MAGIC MOUTH WASH (BMX) 180 mL suspension 15 ml PO .qid PRN (Reason: pain) Qty: 180 6RF Rx Instructions: diphenhydramine 12.5 mg/5 mL oral liquid 60 mL; aluminum-mag hydroxide- simethicone 400 mg-400 mg-40 mg/5 mL oral susp 60 mL; Lidocaine Viscous 2 % mucosal solution 60 mL; Per 180 mL famotidine [Pepcid AC] 10 mg tablet 10 mg PO DAILY PRN (Reason: Acid Reflux) pantoprazole 40 mg tablet,delayed release (DR/EC) 40 mg PO DAILY Qty: 37 4RF Rx Instructions: Take 1 tablet twice daily x1 week then changed to 1 tablet daily. All refills will just be 1 tablet daily. Primary Care Provider: Lara Bobo NP Referrals: Lara Bobo ASSEMBLER WATCH TRAIN, ASSEMBLER WATCH TRAIN-C [Primary Care Provider] - 5-7 Days Shavonne Blanchard NP, ASSEMBLER WATCH TRAIN-C [Med Staff - [facility]] - 5-7 Days Disposition Disposition: Home, Self Care
[2022-03-30] MEDS: 0.9% Normal Saline 1,000 ML 1000 ML IV ×2 (13:00→14:04)
[2022-03-30 13:18] VITALS: BP 96/61; PULSE 99; RESP 20; O2SAT 100
[2022-03-30 13:19] LABS: Hematocrit 40.3 % (37-47); Mean Corp Hgb Conc 32.3 g/dL (32-36); Mean Corpuscular Hgb 27.7 pg (27.0-32.0); Mean Corpuscular Volume 85.9 fL (81-99); Mean Platelet Vol. 9.8 fl (6.2-12.0); POSITIVE COUNT YES; POSITIVE DIFFERENTIAL YES; POSITIVE MORPHOLOGY YES; Platelet Count 59 K/mm3 (150-450); RBC Distribution Width CV 13.3 % (11.6-14.6); RBC Distribution Width SD 41.5 fl (35.1-43.9); Red Blood Count 4.69 M/mm3 (4.2-5.4); White Blood Count 22.1 K/mm3 (4.4-11.0)
[2022-03-30 13:20] LABS: Differential Indicated MANUAL DIFF
[2022-03-30 13:32] LABS: ALB/GLOB Ratio 1.1 RATIO (0.9-2.4); AST(SGOT) 23 U/L (15-37); Alanine Aminotransfer ALT/SGPT 26 U/L (13-56); Albumin, Serum 4.2 g/dL (3.2-5.0); Alkaline Phosphatase 132 U/L (45-117); Anion Gap 8 (5-15); BUN 9 mg/dL (7-18); Calcium,Total 9.7 mg/dL (8.5-10.1); Chloride 104 mmol/L (98-107); EST Glomerular Filtration Rate 37 mL/min (>60); Est Glom Filt Rate - Afr Amer 45 mL/min (>60); Estimated Creatinine Clearance 35.47 ml/min; Globulin 3.9 g/dL (2.2-4.2); Glucose 163 mg/dL (74-106); Lipase 93 U/L (73-393); Potassium 4.4 mmol/L (3.5-5.1); Protein, Total 8.1 g/dL (6.4-8.2); Sodium Level 137 mmol/L (136-145)
[2022-03-30 13:39] LABS: Lymphocyte 24 % (19-41); Metamyelocyte 1 % (0-1); Monocyte 5 % (0-10); Myelocyte 1 % (0-0); Neutrophil-Band 6 % (0-5); Neutrophil-Segmented 63 % (47-70); Platelet Estimate MKD DEC (ADEQ); Red Cell Morphology NORM C+C NORMAL (NORM C&C); Total Cells Counted 100 (MANUAL DIFF)
[2022-03-30 13:40] LABS: Absolute Neutrophil Count 15.2 X10^3/uL (2.0-7.7)
[2022-03-30 14:01] LABS: Mucous, Urine 0 SEEN /hpf (<or=2+); Red Blood Cells-Urine 0 SEEN /hpf (0-5)
[2022-03-30] MEDS: Acetaminophen 500 MG Tablet 1000 MG PO (14:05)
[2022-03-30 14:06] LABS: Color, Urine Straw (Yellow); Glucose, Dipstick Normal (Normal); Ketone-Dipstick Negative (Negative); Leukocyte Esterase-Dipstick 500 /ul (Negative); Nitrite-Dipstick Positive (Negative); Occult Blood-Urine Negative /ul (Negative); Protein-Dipstick 30 mg/dl (Negative); Urine Bilirubin Dipstick Negative (Negative); Urine Clarity Clear (Clear); Urine Urobilinogen Normal (Normal)
[2022-03-30 14:18] LABS: Bacteria RARE /hpf (None Seen); Squamous Epithelial Cells - UA 0-5 SEEN /hpf (5-10); White Blood Cells 0-5 SEEN /hpf (0-5)
[2022-03-30 16:47] VITALS: BP 117/69; PULSE 72; RESP 16; O2SAT 98
[2022-04-01 14:31] LABS: Pathologist Review Reviewed
== END 2022-03-30 16:48 | disposition home or self-care (01) ==
PROVIDERS: Emergency Provider Emergency Medicine; PCP Nurse Practitioner Family; Visit Provider Emergency Medicine
DX: E86.0 Dehydration (principal); C34.11 Malignant neoplasm of upper lobe, right bronchus or lung; D69.6 Thrombocytopenia, unspecified; N18.9 Chronic kidney disease, unspecified; F17.210 Nicotine dependence, cigarettes, uncomplicated; Z79.899 Other long term (current) drug therapy
CPT/HCPCS: 80053; 81001; 83690; 85025; 96360; 96361; 99285; J7030

== ENCOUNTER → 2022-04-19 | Outpatient (CLI) | payer OTHER, SELFPAY ==
--- NOTE | 2022-04-19 14:04 | EKG12_ITS ---
Test Reason : TACHY Blood Pressure : / mmHG Vent. Rate : 115 BPM Atrial Rate : 115 BPM P-R Int : 126 ms QRS Dur : 074 ms QT Int : 318 ms P-R-T Axes : 082 054 059 degrees QTc Int : 439 ms Sinus tachycardia with occasional PVC's Low voltage QRS Borderline ECG Confirmed by ROZINA MCGARRY, PAYAM ([id number]), newspaper copy editor CESIA ESTES ([id number]) on 04/20/2022 9:59:01 AM Referred By: Shavonne Blanchard Confirmed By:PAYAM HANDY MD
== END | disposition home or self-care (01) ==
LOC: PSN 14:03
PROVIDERS: PCP Nurse Practitioner Family; Referring Provider Nurse Practitioner Family; Visit Provider Nurse Practitioner Family
DX: R00.0 Tachycardia, unspecified (principal)
CPT/HCPCS: 93005

== ENCOUNTER → 2022-05-25 | Outpatient (CLI) | payer OTHER, SELFPAY ==
--- NOTE | 2022-05-25 07:40 | CT_ITS ---
STUDY: CTA CHEST REASON FOR EXAM: Female, 66 years old. Tachycardia. History of lung cancer. RADIATION DOSAGE (If Supplied By Facility): CTDIvol = ( 6.09 ) mGy, DLP = ( 212.76 ) mGycm TECHNIQUE: The examination was performed with the intravenous administration of IV 100mL Isovue-370. Post-processing of the angiographic images was performed, with multiplanar reformation and 3D reconstruction. Individualized dose optimization techniques were used for this CT. COMPARISON: Comparison is made with prior examination 01/30/2022. FINDINGS: A left-sided roderick catheter seen with the tip in the superior vena cava. Normal enhancement of the main pulmonary artery and right and left pulmonary arteries. Normal enhancement of the bilateral peripheral pulmonary arteries. There is no demonstrated pulmonary embolism. There is atherosclerotic calcification of the aortic arch with tortuosity. There is no demonstrated aortic dissection. Normal heart and pericardium. The previously seen mediastinal lymphadenopathy as improved. Mild residual changes are seen in the precarinal and subcarinal regions. Normal hilar regions. Normal visualized trachea and bronchi. Hyperinflation. Emphysematous changes worse in the upper lobes with centrilobular changes. There is a persistent 1.3 cm x 0.9 cm spiculated nodule in the lateral aspect of the right lung apex. This has decreased in size as compared to prior study. The satellite lesion adjacent to the dominant lesion on prior study is not seen at this time. The previously seen 6.8 mm nodule in the medial aspect of the right upper lobe as seen on axial image 195 on prior examinations are present at this time. Normal pleura. Normal chest wall structures. There are degenerative changes of thoracic spine. Small hiatal hernia. CT/CTA Chest W/WO Contrast IMPRESSION: Stable hyperinflation and emphysema. Residual 1.3 cm x 0.9 cm nodule in the lateral aspect of the right lung apex. The other previously seen nodules have resolved in the upper lobe. There is definite improvement in the mediastinal lymphadenopathy as compared to prior study. Electronically Signed: Manny Alarcon MD at 8:40 EST ,
== END | disposition home or self-care (01) ==
LOC: CT 07:35
PROVIDERS: PCP Nurse Practitioner Family; Referring Provider Nurse Practitioner Family; Visit Provider Nurse Practitioner Family
DX: R00.0 Tachycardia, unspecified (principal); C34.11 Malignant neoplasm of upper lobe, right bronchus or lung
CPT/HCPCS: 71275; Q9967

== ENCOUNTER → 2022-06-27 | Outpatient (CLI) | payer OTHER, SELFPAY ==
--- NOTE | 2022-06-27 08:30 | MRI_ITS ---
EXAM: MR HEAD WITHOUT AND WITH INTRAVENOUS CONTRAST CLINICAL INDICATION: small cell lung cancer, eval for metastases -- compare to prior TECHNIQUE: Multiplanar and multisequence MR images of the brain were obtained without and with intravenous contrast. This report was created using [employer] report generation technology. CONTRAST: IV 14ml Clariscan COMPARISON: None. FINDINGS: BRAIN AND EXTRA-AXIAL SPACES: Periventricular small vessel ischemic change. No midline shift or hydrocephalus. Diffuse parenchymal atrophy. Old basal ganglia lacunar infarcts bilaterally. Posterior fossa structures are unremarkable. Basal cisterns are patent. No acute intracranial hemorrhage, mass effect or edema. No evidence of acute cortical stroke. SELLA: Unremarkable. Normal sella turcica, pituitary gland, infundibular stalk, optic chiasm and hypothalamus. AUDITORY SYSTEM: Unremarkable. The internal auditory canals are patent. BONES/JOINTS: Unremarkable. No discrete lytic or blastic abnormalities. SINUSES: Unremarkable as visualized. Clear. MASTOID AIR CELLS: Visualized sinuses and mastoid air cells are clear. ORBITS: Unremarkable as visualized. Both globes, extraocular muscles, optic nerves and retrobulbar fat appear unremarkable. VASCULATURE: Unremarkable as visualized. Normal flow voids in the major intracranial circulation. SOFT TISSUES: Unremarkable. No unusual enhancement. MRI/Brain W/WO Contrast IMPRESSION: 1. No evidence of acute intracranial pathology. 2. Diffuse involutional changes and chronic ischemic small vessel white matter disease. Electronically Signed: Jose Angel Teran MD at 4:07 EDT Reading Location ID and State: [facility] / [place] Tel , Service support ,
[2022-06-27] MEDS: 0.9% Saline Lock 10 ML Syringe IV (09:05)
== END | disposition home or self-care (01) ==
PROVIDERS: PCP Nurse Practitioner Family; Visit Provider Student in an Organized Health Care Education/Training Program
DX: C34.11 Malignant neoplasm of upper lobe, right bronchus or lung (principal)
CPT/HCPCS: 70553; A9575

== ENCOUNTER 2022-07-29 08:30 | Outpatient (RCR) | payer OTHER, SELFPAY ==
--- NOTE | 2022-06-23 14:02 | HP.PTEVAL ---
Patient's Visit Information ASIF HERNANDEZ is a 66 year old F referred to Physical Therapy by RUDY Black with a diagnosis of Generalized weakness. Date of Evaluation: 06/23/22 Physical Therapist: Cesar Moya, DPT, OCS, CSCS - Visit Plan Frequency: 3x /Week Duration: 4-6 Weeks Plan: 3x/week for 3-6 weeks... Please progress quickly to HEP on hip stabs with band and phase 3 with band(doing er already). 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 Became anemic and needed transfusion. Now she needs to get back to doing life. Gets winded easily, has no muscle strength left. Had lung CA and has not had new scan since treatment. No pain from that. Sleeps well. Gets 8 hrs per night. No naps. 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 Could do it limited but sees 45 kids per week. It would wear her out. Lives with in two story with steps and upstairs bathroom and doing those but the steps wore her out before last week, just a little winded. It used to look like a mountain. Wants to be in better shape to get out in the garden, will need to be stronger in arms. also stood to make chili for 45-60 minutes annd was worn out and needed to sit. Feels weak in upper legs. Would shake in the legs last week. Loved to walk previously 1-2 miles per walk a couple times per week. None right now. Fearful to walk by self right now. H/o L neck pain and upper arm since an accident yrs ago. She was picking stuff up last week and felt that worsen pain in L upper arm pinching. Happens at rest as well as moving and gets some L neck pain. been worse since early fall. - Pain L neck Pain Intensity (Out of 10): 0 Pain Intensity Range: 0, 7 Comment: worse sitting and using arms out front. - Objective Walks I into and out of PT on firm flat surface. Transfers chair and bed I. Steps reciprocal without rail today but weaker descending eccentrically. AROM UE and LE WFL and only slightly painful end range er L shoulder. HS tighter R vs L and pecs tight B. Posture is forward head and protracted scap with elevated scap slightly on L. strength is 4-/5 in UE except L er is 3+, no pain. LE strength in ankles is 4+ and knees is 4/5 ext adn flexion and hip rotations 3+ er and 4 IR. flexion 4- with ir at opposite hip, abduction 3+, ext 3+ B Hips. sensation LE and UE WNL to gross light otuch. Corrdination to reciprocal toe tap is OK. FGA, TUG and 30 sec sit to stand is OK. SOB after climbing steps slightly. - Balance/Special Test Scores Functional Gait Assessment Score: 30 % Disability: 0 Lower Extremity Functional Score: 39 TUG Test Time Seconds: 6 30 Second Chair Rise Test Seconds: 15 - Goals Goal 1:: Pt feel 90% back to normal energy and funcitonal levels Goal Time Frame: 4-6 Weeks Goal 2:: I appropriate HEP to minimize future problems. 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 Goal Time Frame: 4-6 Weeks Goal 5:: L shoulder pain abolished Goal Time Frame: 4-6 Weeks - Rehabilitation Potential Physical Therapy Diagnosis: weakness after recent chemo effecting fucntion and posture Rehabilitation Potential: Good - Anticipated Interventions Patient/Client Instruction: Educate patient on: Condition, Plan of Care For the Purpose of:: To decrease pain, To increase ROM, To improve muscle performance and motor function, To increase tolerance to activity/condition/position, To improve ability of physical actions for home/community/work/leisure Therapeutic Exercise to Include: Strength training, Postural training, Scapular Strength/Stabilization For the Purpose of:: To decrease pain, To increase ROM, To improve nutrient delivery to tissue, To improve muscle performance and motor function Thank you for the opportunity to evaluate your patient. For Medicare and Medicare HMO plans, please review the plan of care and approve it. It will need to be FAXED BACK to us at [phone] for Medicare purposes. For Medicare only, by signing this I certify the plan of care. Please let me know if there are questions or concerns regarding this plan of care. Physician Signature: Date:
--- NOTE | 2022-07-29 09:21 | HP.PTDCSUM ---
It has been my pleasure to treat ASIF HERNANDEZ referred by RUDY Black, with the diagnosis of Generalized weakness for a total of 15 visit(s). Discharge Date: 07/29/22 Please see the following information for a summary of their discharge status. Subjective: Cancer free diagnosis this am. Workout going well. L arm still weak but improving. Gardened for two days and digging without a problem, just some minor fatigue. Got 1.5 hrs in. Loves the gym and will join to continue L neck Pain Intensity (Out of 10): 0 L sh Pain Intensity (Out of 10): 0 low back Pain Intensity (Out of 10): 0 B HS Pain Intensity (Out of 10): 0 % Improvement: 80 Objective/Function: AROM WNL B shoulders and neck. Strenggth is improving in upper body and still lags in er and flexion L shoulder vs R. Pt I with exercises and happy and will join and continue via HEP and gym ex. Goal 1:: Pt feel 90% back to normal energy and funcitonal levels Goal Progress: 80% Goal 2:: I appropriate HEP to minimize future problems. 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 Goal Progress: Goal Met Goal 5:: L shoulder pain abolished Goal Progress: Progressing Plan: d/c Discharge Comments: Will continue via HEP and gym ex. If there are questions or concerns regarding this patient's physical therapy, please feel free to call me at [phone]. Thank you for the referral of this patient. Sincerely, Cesar Moya, DPT, OCS, CSCS Balance/Gait/Functional tests - Balance/Special Test Scores Functional Gait Assessment Score: 30 % Disability: 0 Lower Extremity Functional Score: 68 TUG Test Time Seconds: 6 Tug Test: <10 sec.=free mobile 30 Second Chair Rise Test Seconds: 15
== END 2022-07-29 13:25 | disposition home or self-care (01) ==
LOC: PT 08:30
PROVIDERS: PCP Nurse Practitioner Family; Referring Provider Nurse Practitioner Family; Visit Provider Nurse Practitioner Family
DX: R53.1 Weakness (principal)
CPT/HCPCS: 97110; 97161; 97164; 97530

== ENCOUNTER → 2022-09-02 | Outpatient (CLI) | payer OTHER, SELFPAY ==
--- NOTE | 2022-09-02 07:31 | MRI_ITS ---
INDICATION: small cell lung cancer, obs for brain mets EXAMINATION: MRI - MR Brain WO/W Contrast TECHNIQUE: MRI examination of brain obtained with standard protocol including multiplanar multiecho pre and postcontrast imaging. IV Contrast Dosage and Agent: 12 mL clariscan COMPARISON: 06/27/2022 FINDINGS: HEMISPHERES, CEREBELLUM AND BRAINSTEM: 1. The cerebral parenchyma, ventricular system, subarachnoid spaces have normal configuration and density. There is a normal gyral pattern. There is normal mccurdy/white differentiation. No midline shift.. 2. Mild involutional change and scattered chronic microvascular deep white matter change. Findings are stable. 3. No intraparenchymal mass, hemorrhage, or acute territorial infarct. 4. The cerebellum, brainstem, basilar and suprasellar cisterns have normal appearance. No Chiari malformation. No areas of abnormal intraparenchymal or extra-axial contrast enhancement. PITUITARY: Infundibulum and pituitary have normal configuration. Midline structures appear normal. CSF SPACES: Appropriate for age. No hydrocephalus. Basal cisterns are patent. VESSELS: 1. There are normal flow voids noted in the great vessels at the skull base ORBITS AND PARANASAL SINUSES: 1. Both globes, extraocular muscles, optic nerves and retrobulbar fat appear unremarkable. 2. Paranasal sinuses are clear. BONY ELEMENTS: Bony elements of the cranial vault, facial skeleton and skull base have normal appearance. SCALP AND SOFT TISSUES: Normal appearance of the soft tissues of the scalp and the visualized face OTHER: None MRI/Brain W/WO Contrast IMPRESSION: 1. Stable exam. 2. Mild involutional changes and chronic microvascular deep white matter changes. 3. No mass, hemorrhage, or acute territorial infarct. 4. No intracranial evidence of metastatic disease. 5. No evidence of bony metastatic changes. Electronically Signed: Kristofer Gautam MD at 21:53 EDT ,
[2022-09-02] MEDS: 0.9% Saline Lock 10 ML Syringe IV (08:17)
== END | disposition home or self-care (01) ==
LOC: MRI 07:19
PROVIDERS: PCP Nurse Practitioner Family; Referring Provider Student in an Organized Health Care Education/Training Program; Visit Provider Student in an Organized Health Care Education/Training Program
DX: C34.11 Malignant neoplasm of upper lobe, right bronchus or lung (principal)
CPT/HCPCS: 70553; A9575; A4216

== ENCOUNTER → 2022-11-10 | Outpatient (CLI) | payer OTHER, SELFPAY ==
--- NOTE | 2022-11-10 10:03 | ECHOD_ITS ---
Reason For Study: ARRHYTHMIA Procedure This was a 2D Doppler, Color Flow transthoracic echocardiogram. Myocardial strain analysis was performed in this exam to aid in the assessment of cardiac function. Exam performed in department. Left Ventricle Normal LV size. Left ventricular systolic function is normal. The estimated ejection fraction is 65 %. Stage 1 diastolic dysfunction. No regional wall motion abnormalities noted. Right Ventricle Normal RV size. Normal systolic function. Atria Normal left atrium. Normal right atrium. Mitral Valve Normal mitral valve. Tricuspid Valve Normal tricuspid valve. Mild (1+) tricuspid valve insufficiency. Pulmonary artery systolic pressure is 47 mmHg. Aortic Valve Normal aortic valve. Pulmonic Valve Normal pulmonic valve. Great Vessels Normal aortic root. The pulmonary artery is normal size. Normal inferior vena cava. Pericardium/Pleural Small pericardial effusion. There are no echocardiographic indications of cardiac tamponade. MMode/2D Measurements & Calculations LVIDd: 3.5 cm IVSd: 0.89 cm Ao root diam: 2.9 cm LVIDs: 2.4 cm LVPWd: 0.84 cm FS: 32.2 % LAV(MOD-bp): 19.9 ml LVAd ap4: 19.9 cm2 SV(MOD-sp4): 29.2 ml LAV(MOD-bp) Indexed: 11.2 ml/m2 LVLd ap4: 6.8 cm LAV(MOD-sp2): 17.7 ml EDV(MOD-sp4): 47.2 ml LAV(MOD-sp4): 20.9 ml EDV(sp4-el): 49.6 ml LVAs ap4: 10.9 cm2 LVLs ap4: 5.9 cm ESV(MOD-sp4): 18.0 ml ESV(sp4-el): 17.2 ml EF(MOD-sp4): 61.8 % EF(sp4-el): 65.4 % SV(sp4-el): 32.5 ml LA A4 area: 10.9 cm2 LA dimension(2D): 2.5 cm RA A4 area: 8.7 cm2 Time Measurements MV dec time: 0.18 sec Doppler Measurements & Calculations MV E max christ: 73.3 cm/sec Lat Peak E' Christ: 9.9 cm/sec Med Peak E' Christ: 9.4 cm/sec MV A max christ: 85.2 cm/sec E/E' lat: 7.4 E/E' med: 7.8 MV E/A: 0.86 Ao V2 max: 120.2 cm/sec LV V1 max: 97.7 cm/sec PA V2 max: 86.0 cm/sec Ao max P.8 mmHg LV V1 max P.8 mmHg TR max christ: 333.0 cm/sec TR max P.4 mmHg ECHO/Echo Complete Interpretation Summary Normal LV size. Left ventricular systolic function is normal. The estimated ejection fraction is 65 %. Mild (1+) tricuspid valve insufficiency. Pulmonary artery systolic pressure is 47 mmHg. Small pericardial effusion. Stage 1 diastolic dysfunction. Ordering Physician: Gabriele Guerrero Referring Physician: CASSANDRA STOCKTON Performed By: Stephanie Amin RDCS
== END | disposition home or self-care (01) ==
PROVIDERS: PCP Nurse Practitioner Family; Referring Provider Internal Medicine Cardiovascular Disease; Visit Provider Internal Medicine Cardiovascular Disease
DX: R00.0 Tachycardia, unspecified (principal); I07.1 Rheumatic tricuspid insufficiency; I31.39 Other pericardial effusion (noninflammatory)
CPT/HCPCS: 93306

== ENCOUNTER → 2022-11-28 | Outpatient (CLI) | payer OTHER, SELFPAY ==
--- NOTE | 2022-11-29 09:45 | PFT ---
INTRODUCTION: The patient is a 67-year-old female who presents for pulmonary function studies secondary to a diagnosis of dyspnea. Respiratory therapy reported good patient effort. Bronchodilators were used during testing. INTERPRETATION: Forced expiration spirometry demonstrates the presence of a mild large airways obstructive ventilatory defect. There was no significant response to aerosolized bronchodilators. Spirograms are of good quality but do not plateau indicating slow emptying of the lungs. Body plethysmography was performed and revealed lung volumes to be within normal limits. Diffusing capacity by single breath CO is reduced to 54% of predicted. IMPRESSION: Irreversible mild large airways obstructive ventilatory defect with disproportionate reduction in diffusing capacity.
== END | disposition home or self-care (01) ==
PROVIDERS: PCP Nurse Practitioner Family; Referring Provider Nurse Practitioner Acute Care; Visit Provider Nurse Practitioner Acute Care
DX: R06.00 Dyspnea, unspecified (principal)
CPT/HCPCS: 94060; 94726; 94729

== ENCOUNTER → 2022-12-02 | Outpatient (CLI) | payer OTHER, SELFPAY ==
--- NOTE | 2022-12-02 12:41 | MRI_ITS ---
STUDY: MRI BRAIN WITH AND WITHOUT CONTRAST REASON FOR EXAM: Female, 67 years old. follow up MRI, small cell lung cancer -- please compare to prior TECHNIQUE: Standardized multiplanar fat and water weighted pulse sequences were obtained. IV 13 ml CLARISCAN was administered for the contrast portion of the examination. COMPARISON: MRI of the brain dated September 02, 2022 FINDINGS: There is mild cerebral atrophy with widening of the extra-axial spaces and ventricular dilatation. There are a limited number of small white matter hyperintensities, distributed throughout the deep white matter tracts of the cerebral hemispheres, consistent with mild chronic white matter ischemic changes. There is no evidence for recent intracranial ischemia or other cause of cytotoxic edema on diffusion weighted imaging (DWI). Normal T2* images of the brain without demonstrated susceptibility artifact. There is no demonstrated hemosiderin stain. There is no demonstrated focal brain parenchymal or infiltrative lesions or abnormally enhancing lesion. No demonstrated thickening or enhancement of the meninges or dura. Redemonstration of chronic ischemic changes and cystic encephalomalacia of the anterior aspect of the left periventricular white matter/perkins radiata. An old lacunar infarct in this region is suspected. No skull lesions are seen. Normal bilateral basal ganglia. Normal thalami. There is no extra-axial fluid accumulation. Normal flow voids within the major intracranial circulation suggesting patency by spin echo criteria. Normal venous enhancement. There is no enhancing intra-axial or extra-axial abnormality. Normal sella turcica, pituitary gland, infundibular stalk, optic chiasm and hypothalamus. Normal tectal plate and pineal gland. Normal midbrain, tye and medulla. Normal cerebellum. Normal basal cisterns. Normal bilateral temporal bones. Normal bilateral internal auditory canals. No demonstrated orbital abnormality, within the constraints of a routine brain study. Normal visualized paranasal sinuses. Normal calvarium and skull base. Normal visualized soft tissue structures. Normal visualized upper cervical spine. MRI/Brain W/WO Contrast IMPRESSION: 1. There is no demonstrated focal brain parenchymal or infiltrative lesions or abnormally enhancing lesion. No demonstrated thickening or enhancement of the meninges or dura. Redemonstration of chronic ischemic changes and cystic encephalomalacia of the anterior aspect of the left periventricular white matter/perkins radiata. An old lacunar infarct in this region is suspected. Electronically Signed: Charlie Torres MD at 13:38 EDT ,
[2022-12-02] MEDS: 0.9 % NaCl (Sterile) Posiflush 10 mL IV (13:26)
== END | disposition home or self-care (01) ==
PROVIDERS: PCP Nurse Practitioner Family; Referring Provider Student in an Organized Health Care Education/Training Program; Visit Provider Student in an Organized Health Care Education/Training Program
DX: C34.11 Malignant neoplasm of upper lobe, right bronchus or lung (principal)
CPT/HCPCS: 70553; A9575; A4216

== ENCOUNTER → 2023-01-26 | Outpatient (CLI) | payer OTHER, MEDICARE, SELFPAY ==
--- NOTE | 2023-01-26 14:19 | RAD_ITS ---
STUDY: X-RAY CHEST REASON FOR EXAM: Female, 67 years old. COUGH, CHEST PAIN TECHNIQUE: PA and lateral views of the chest. COMPARISON: 01/30/2022. FINDINGS: There is a left-sided chest port with the tip in the mid-distal SVC. There is a right perihilar irregular densities concerning for neoplasm with component of atelectasis versus postobstructive pneumonitis not excluded. There is a right suprahilar scarring. Remainder of the lung shaw are clear. There is no demonstrated pleural abnormality. Normal size heart. Normal mediastinum and meño. Normal visualized pulmonary arteries. Normal visualized aortic arch and descending thoracic aorta. There is demineralization of the osseous structures. Mild degenerative disease of the spine. There is no demonstrated abnormality of the visualized soft tissue structures of the upper abdomen. RAD/Chest PA and Lateral IMPRESSION: Right perihilar mass concerning for neoplasm with component of atelectasis or postobstructive perihilar pneumonitis not excluded. Right suprahilar scarring. Right-sided chest port as described. Electronically Signed: Janell Dockery MD at 17:30 EDT ,
== END | disposition home or self-care (01) ==
PROVIDERS: PCP Nurse Practitioner Family; Referring Provider Nurse Practitioner Family; Visit Provider Nurse Practitioner Family
DX: R07.9 Chest pain, unspecified (principal); R05.9 Cough, unspecified
CPT/HCPCS: 71046

== ENCOUNTER → 2023-02-02 | Outpatient (CLI) | payer MEDICARE, SELFPAY ==
--- NOTE | 2023-02-02 08:16 | CT_ITS ---
INDICATION: F/U SCLC IV CONTRAST ONLY -- FOLLOW UP EXAMINATION: CT CHEST AND ABDOMEN WITH CONTRAST - CT Chest And Abdomen W/ Contrast Injection TECHNIQUE: Helically acquired images were obtained of the chest and abdomen. A radiation dose optimization technique was used for this scan. IV Contrast dosage and agent: 100 cc of Isovue-300 Oral contrast: None. COMPARISON: Prior study dated: 05/25/2022. FINDINGS: ----Chest: LUNGS, PLEURA AND LARGE AIRWAYS: Previously noted spiculated lesion in the right upper lobe with adjacent right upper lobe nodule not seen at this time. Extensive cystic changes in the right upper lobe in this region likely representing postradiation changes. Moderate stranding in the right upper lobe anteriorly new since previous exam could represent postradiation or postsurgical changes. No pleural effusion or thickening. No pneumothorax. THYROID: No thyroid lesions. HEART AND PERICARDIUM: Heart size is normal. No pericardial effusion. VESSELS: Thoracic aorta is not dilated. MEDIASTINUM AND HILDA: Residual mild stranding and soft tissue density in the subcarinal and right hilar region without definite focal adenopathy unchanged. Esophagus is unremarkable. No hiatal hernia. BONES: No suspicious lytic or blastic abnormality. ----Abdomen (without Pelvis): LIVER: 3 mm low-density lesion/cyst in the left lobe of the liver. Otherwise no focal lesion is seen. Hepatomegaly. GALLBLADDER AND BILIARY TREE: No calcified gallstones. No gallbladder distension or wall edema. No intra- or extrahepatic biliary ductal dilation. PANCREAS: No focal cystic or solid mass. SPLEEN: Normal size without focal cystic or solid mass. ADRENAL GLANDS: No nodules. KIDNEYS AND URETERS: Normal renal size and position. No hydronephrosis. PERITONEUM: No ascites or free air. No other fluid collection. BOWEL: The visualized small bowel loops are nondilated. Thickening of the gastric wall probably due to underdistention. The distal small bowel loops and pelvic region are not included on this examination. LYMPH NODES: No enlarged mesenteric or retroperitoneal lymph nodes. VESSELS: Atherosclerotic calcifications of the abdominal aorta without evidence of aneurysm. ABDOMINAL WALL: No discrete abdominal wall hernia. BONES: No lytic or blastic abnormality. CT/CT Chest AND Abd W/ Contrast IMPRESSION: 1. Previously noted spiculated right upper lobe lesion not seen at this time. 2. Moderate stranding and cystic changes in right upper lobe likely representing postradiation changes. 3. Mild stranding in the mediastinal and right hilar region without definite adenopathy unchanged. 4. Otherwise no evidence of metastatic disease. 5. No focal acute inflammatory process. 6. Hepatomegaly. Electronically Signed: Gil Simeon MD at 12:14 EDT ,
[2023-02-02] MEDS: 0.9% Saline Lock 10 ML Syringe IV (08:48)
[2023-02-02 08:51] LABS: CREATININE FINGERSTICK 1.2 mg/dL (0.55-1.02)
== END | disposition home or self-care (01) ==
PROVIDERS: PCP Nurse Practitioner Family; Referring Provider Internal Medicine Hematology & Oncology; Visit Provider Internal Medicine Hematology & Oncology
DX: C34.11 Malignant neoplasm of upper lobe, right bronchus or lung (principal); C77.9 Secondary and unspecified malignant neoplasm of lymph node, unspecified
CPT/HCPCS: 36591; 71260; 74160; 80053; 85025; Q9967; A4216

== ENCOUNTER → 2023-03-20 | Outpatient (CLI) | payer MEDICARE, SELFPAY ==
[2023-03-20 15:50] LABS: Absolute Lymphocyte Count 2.23 X10^3/uL (0.83-4.51); Absolute Neutrophil Count 4.7 X10^3/uL (2.0-7.7); Basophil# 0.06 X10^3/uL; Basophil% 0.8 % (0-1); Eosinophil# 0.15 X10^3/uL; Eosinophils% 1.9 % (0-5); Hematocrit 43.9 % (37-47); Hemoglobin 13.7 g/dL (12.0-15.0); Lymphocyte # 2.23 X10^3/ul (0.83-4.51); Mean Corp Hgb Conc 31.2 g/dL (32-36); Mean Corpuscular Hgb 28.5 pg (27.0-32.0); Mean Corpuscular Volume 91.3 fL (81-99); Mean Platelet Vol. 8.8 fl (6.2-12.0); Monocyte# 0.77 X10^3/uL; Monocyte% 9.7 % (0-10); NRBC Flagged by Analyzer 0 % (0-5); Neutrophil # 4.72 X10^3/uL (2.7-7.7); Neutrophil % 59.2 % (47-70); Platelet Count 317 K/mm3 (150-450); RBC Distribution Width CV 15.7 % (11.6-14.6); RBC Distribution Width SD 52.7 fl (35.1-43.9); Red Blood Count 4.81 M/mm3 (4.2-5.4)
[2023-03-20 16:11] LABS: Vitamin B12 301 pg/mL (211-911); Vitamin D,25 Hydroxy 29.6 ng/mL
[2023-03-20 16:47] LABS: AST(SGOT) 19 U/L (15-37); Alanine Aminotransfer ALT/SGPT 20 U/L (13-56); Albumin, Serum 4.1 g/dL (3.2-5.0); Alkaline Phosphatase 70 U/L (45-117); Anion Gap 7 (5-15); BUN 13 mg/dL (7-18); BUN/Creat Ratio 11.6 RATIO (10-20); Calcium,Total 9.2 mg/dL (8.5-10.1); Chloride 103 mmol/L (98-107); Cholesterol 259 mg/dL (200); Creatinine, Serum 1.12 mg/dL (0.55-1.02); EST Glomerular Filtration Rate 52 mL/min (>60); Est Glom Filt Rate - Afr Amer 63 mL/min (>60); Globulin 4.1 g/dL (2.2-4.2); Glucose 123 mg/dL (74-106); High Density Lipoprotein 53 mg/dL; Magnesium 2.5 mg/dL (1.6-2.6); Potassium 3.9 mmol/L (3.5-5.1); Protein, Total 8.2 g/dL (6.4-8.2); Sodium Level 136 mmol/L (136-145); Thyroid Stim Hormone (TSH) 2.77 uIU/mL (0.358-3.74); Triglycerides 150 mg/dL; Very Low Density Lipoprotein 30 mg/dL (5-40)
== END | disposition home or self-care (01) ==
LOC: MFPLAB 12:10
PROVIDERS: Family Medicine; PCP Nurse Practitioner Family; Visit Provider Nurse Practitioner Family
DX: F32.9 Major depressive disorder, single episode, unspecified (principal); R73.01 Impaired fasting glucose; I10 Essential (primary) hypertension; E55.9 Vitamin D deficiency, unspecified
CPT/HCPCS: 36415; 80053; 80061; 82306; 82607; 83036; 83735; 84443; 85025

== ENCOUNTER → 2023-03-21 | Outpatient (CLI) | payer MEDICARE, SELFPAY ==
--- NOTE | 2023-03-21 07:28 | MRI_ITS ---
STUDY: MRI BRAIN WITH AND WITHOUT CONTRAST REASON FOR EXAM: Female, 67 years old. small cell lung cancer -- eval for brain mets, comprare to prior TECHNIQUE: Standardized multiplanar fat and water weighted pulse sequences were obtained. IV 13cc Clariscan was administered for the contrast portion of the examination. COMPARISON: December 02, 2022 FINDINGS: Normal size of the ventricles and extra-axial spaces for the patient''s age. Multiple small scattered periventricular white matter lesions without mass effect or restricted diffusion most likely due to nonspecific chronic small vessel ischemic changes. Mild chronic ischemic changes within the tye bilaterally Normal bilateral basal ganglia. Normal thalami. There is no extra-axial fluid accumulation. Normal flow voids within the major intracranial circulation suggesting patency by spin echo criteria. Normal venous enhancement. There is no enhancing intra-axial or extra-axial abnormality. Normal sella turcica, pituitary gland, infundibular stalk, optic chiasm and hypothalamus. Normal tectal plate and pineal gland. Normal midbrain, and medulla. Normal cerebellum. Normal basal cisterns. Normal bilateral temporal bones. Normal bilateral internal auditory canals. No demonstrated orbital abnormality, within the constraints of a routine brain study. Normal visualized paranasal sinuses. Normal calvarium and skull base. Normal visualized soft tissue structures. Normal visualized upper cervical spine. No significant change since prior exam MRI/Brain W/WO Contrast IMPRESSION: Moderate periventricular white matter ischemic changes without evidence for acute infarct. Chronic pontine ischemic changes. No evidence for metastatic disease Electronically Signed: Diomedes Patel MD at 19:58 EST ,
[2023-03-21] MEDS: 0.9 % NaCl (Sterile) Posiflush 10 mL IV (08:36)
== END | disposition home or self-care (01) ==
LOC: MRI 07:25
PROVIDERS: PCP Family Medicine; Referring Provider Student in an Organized Health Care Education/Training Program; Visit Provider Student in an Organized Health Care Education/Training Program
DX: C34.11 Malignant neoplasm of upper lobe, right bronchus or lung (principal)
CPT/HCPCS: 70553; A9575; A4216

== ENCOUNTER → 2023-06-21 | Outpatient (CLI) | payer MEDICARE, SELFPAY ==
--- NOTE | 2023-06-21 07:52 | BI_ITS ---
MAMMOGRAPHY - BILATERAL SCREENING 3-D TOMOSYNTHESIS REASON FOR EXAM: Female, 67 years old. SCREENING PERTINENT HISTORY: No significant family history. TECHNIQUE: 2-D mammograms and 3-D Tomosynthesis of the breast (s) were performed. CAD was performed. COMPARISON: 03/22/2022 FINDINGS: The breast composition is Extermely dense tissue. Scattered benign calcifications are seen. No dense spiculated masses or suspicious microcalcifications are identified. No architectural distortion is identified. There is no skin thickening or retraction. There has been no significant change since the prior study. BI/SCRN MAMM (CAD)W/NARENDRA BILAT IMPRESSION: No mammographic signs of malignancy. Routine yearly mammograms recommended. ASSESSMENT CATEGORY: BIRADS Category 1: Negative. A letter regarding these results will be sent to the patient by the facility within 30 days. FOLLOW UP RECOMMENDATION: Yearly follow up mammogram recommended. (A) Approximately 10% of breast cancers are not detected by mammography. A normal mammogram should not delay biopsy of a clinically suspicious abnormality. Electronically Signed: Kristofer Bah MD at 19:44 EST ,
== END | disposition home or self-care (01) ==
LOC: OPBI 07:50
PROVIDERS: PCP Family Medicine; Referring Provider Family Medicine; Visit Provider Family Medicine
DX: Z12.31 Encounter for screening mammogram for malignant neoplasm of breast (principal)
CPT/HCPCS: 77063; 77067

== ENCOUNTER 2023-07-04 13:01 | Outpatient (CLI) | payer MEDICARE, SELFPAY ==
[2023-07-04 15:40] LABS: Hematocrit 42.1 % (37-47); Hemoglobin 13.4 g/dL (12.0-15.0); Mean Corp Hgb Conc 31.8 g/dL (32-36); Mean Corpuscular Hgb 28.9 pg (27.0-32.0); Mean Corpuscular Volume 90.9 fL (81-99); Mean Platelet Vol. 8.9 fl (6.2-12.0); Platelet Count 311 K/mm3 (150-450); Red Blood Count 4.63 M/mm3 (4.2-5.4); White Blood Count 9.7 K/mm3 (4.4-11.0)
[2023-07-04 16:19] LABS: Hemoglobin A1c 6.2 % (3.8-5.6)
[2023-07-04 16:33] LABS: ALB/GLOB Ratio 1.1 RATIO (0.9-2.4); AST(SGOT) 27 U/L (15-37); Alanine Aminotransfer ALT/SGPT 24 U/L (13-56); Alkaline Phosphatase 66 U/L (45-117); Anion Gap 9 (5-15); BUN 20 mg/dL (7-18); Calcium,Total 9.4 mg/dL (8.5-10.1); Chloride 106 mmol/L (98-107); Creatinine, Serum 1.05 mg/dL (0.55-1.02); EST Glomerular Filtration Rate 56 mL/min (>60); Est Glom Filt Rate - Afr Amer 68 mL/min (>60); Globulin 3.7 g/dL (2.2-4.2); Glucose 104 mg/dL (74-106); Potassium 4.6 mmol/L (3.5-5.1); Protein, Total 7.7 g/dL (6.4-8.2); Sodium Level 139 mmol/L (136-145); Thyroid Stim Hormone (TSH) 1.93 uIU/mL (0.358-3.74)
== END 2023-07-04 23:59 | disposition home or self-care (01) ==
LOC: MTLAB 13:02
PROVIDERS: PCP Family Medicine; Referring Provider Family Medicine; Visit Provider Family Medicine
DX: R53.83 Other fatigue (principal); R73.01 Impaired fasting glucose
CPT/HCPCS: 36415; 80053; 83036; 84443; 85027

== ENCOUNTER → 2023-07-24 | Outpatient (CLI) | payer MEDICARE, SELFPAY ==
--- NOTE | 2023-07-24 08:40 | ECHODONC_ITS ---
Reason For Study: ARRHYTHMIA Procedure This was a 2D Doppler, Color Flow transthoracic echocardiogram. Myocardial strain analysis was performed in this exam to aid in the assessment of cardiac function. The study was technically difficult. Exam performed in department. Left Ventricle Normal left ventricle. Left ventricular systolic function is normal. The left ventricular ejection fraction is 65 %. No regional wall motion abnormalities noted. Right Ventricle Normal RV size. Normal systolic function. Atria Normal left atrium. Normal right atrium. Mitral Valve Normal mitral valve. Tricuspid Valve Normal tricuspid valve. Mild tricuspid valve insufficiency. Pulmonary artery systolic pressure is 33 mmHg. Aortic Valve Trisinus/trileaflet aortic valve. Pulmonic Valve Normal pulmonic valve. Great Vessels Normal aortic root. The pulmonary artery is normal size. Inferior vena cava collapse with respiration. Pericardium/Pleural No pericardial effusion. MMode/2D Measurements & Calculations LVIDd: 3.7 cm IVSd: 1.0 cm LVOT diam: 1.9 cm LVIDs: 2.5 cm LVPWd: 0.80 cm LVOT area: 2.8 cm2 RVDd: 3.0 cm FS: 32.3 % Ao root diam: 3.0 cm LAV(MOD-bp): 19.7 ml LVAd ap4: 17.5 cm2 LAV(MOD-bp) Indexed: 11.6 ml/m2 LVLd ap4: 6.8 cm LAV(MOD-sp2): 25.3 ml EDV(MOD-sp4): 37.4 ml LAV(MOD-sp4): 12.9 ml EDV(sp4-el): 38.1 ml LVAs ap4: 7.5 cm2 LVLs ap4: 5.5 cm ESV(MOD-sp4): 9.0 ml ESV(sp4-el): 8.8 ml EF(MOD-sp4): 76.0 % EF(sp4-el): 76.8 % LVAd ap2: 17.6 cm2 SV(MOD-sp4): 28.4 ml SV(MOD-sp2): 25.6 ml LVLd ap2: 6.7 cm EDV(MOD-sp2): 38.4 ml EDV(sp2-el): 39.0 ml LVAs ap2: 9.1 cm2 LVLs ap2: 5.9 cm ESV(MOD-sp2): 12.8 ml ESV(sp2-el): 12.0 ml EF(MOD-sp2): 66.8 % SV(sp4-el): 29.2 ml LA dimension(2D): 2.2 cm LA A4 area: 7.5 cm2 RA A4 area: 9.0 cm2 TAPSE: 1.7 cm Time Measurements MV dec time: 0.24 sec Doppler Measurements & Calculations MV E max christ: 83.1 cm/sec Lat Peak E' Christ: 10.7 cm/sec Med Peak E' Christ: 9.9 cm/sec MV A max christ: 79.5 cm/sec E/E' lat: 7.8 E/E' med: 8.4 MV E/A: 1.0 Ao V2 max: 121.6 cm/sec LV V1 max: 100.5 cm/sec MV dec slope: 345.9 cm/sec2 Ao max P.9 mmHg LV V1 max P.0 mmHg Ao V2 mean: 82.0 cm/sec LV V1 mean P.2 mmHg Ao mean P.0 mmHg LV V1 mean: 69.5 cm/sec Ao V2 VTI: 26.0 cm LV V1 VTI: 23.8 cm AV (velocity ratio): 0.92 ANDERS(I,D): 2.6 cm2 ANDERS(V,D): 2.3 cm2 SV(LVOT): 67.4 ml PA V2 max: 66.2 cm/sec TR max christ: 268.4 cm/sec PA max PG (full): 0.54 mmHg TR max P.8 mmHg ECHO/ONC Echo Complete Interpretation Summary Normal left ventricle. Left ventricular systolic function is normal. The left ventricular ejection fraction is 65 %. Pulmonary artery systolic pressure is 33 mmHg. The global longitudinal strain is normal. The global longitudinal strain = -18. 2 % (normal). Ordering Physician: Gabriele Guerrero Referring Physician: Gabriele Guerrero MD Performed By: Alycia Pierce RDCS
== END | disposition home or self-care (01) ==
LOC: CVS 08:38
PROVIDERS: PCP Family Medicine; Referring Provider Internal Medicine Cardiovascular Disease; Visit Provider Internal Medicine Cardiovascular Disease
DX: I34.0 Nonrheumatic mitral (valve) insufficiency (principal)
CPT/HCPCS: 93306; 93356

== ENCOUNTER → 2023-08-03 | Outpatient (CLI) | payer MEDICARE, SELFPAY ==
--- NOTE | 2023-08-03 11:15 | MRI_ITS ---
STUDY: MRI BRAIN WITH AND WITHOUT CONTRAST REASON FOR EXAM: Female, 67 years old. Eval for brain mets -- small cell lung cancer, monitor TECHNIQUE: Standardized multiplanar fat and water weighted pulse sequences were obtained. IV 13ML CLARISCAN was administered for the contrast portion of the examination. COMPARISON: March 21, 2023 and December 02, 2022. FINDINGS: Normal size of the ventricles and extra-axial spaces for the patient''s age. There are multiple white matter hyperintensities, distributed throughout the deep white matter tracts of the cerebral hemispheres, consistent with moderate chronic white matter ischemic changes. There is no evidence for recent intracranial ischemia or other cause of cytotoxic edema on diffusion weighted imaging (DWI). Normal T2* images of the brain without demonstrated susceptibility artifact. There is no demonstrated hemosiderin stain. Normal bilateral basal ganglia. Normal thalami. There is no extra-axial fluid accumulation. Normal flow voids within the major intracranial circulation suggesting patency by spin echo criteria. Normal venous enhancement. There is no enhancing intra-axial or extra-axial abnormality. Normal sella turcica, pituitary gland, infundibular stalk, optic chiasm and hypothalamus. Normal tectal plate and pineal gland. Normal midbrain, tye and medulla. Normal cerebellum. Normal basal cisterns. Normal bilateral temporal bones. Normal bilateral internal auditory canals. No demonstrated orbital abnormality, within the constraints of a routine brain study. Normal visualized paranasal sinuses. Normal calvarium and skull base. Normal visualized soft tissue structures. Normal visualized upper cervical spine. MRI/Brain W/WO Contrast IMPRESSION: Involutional changes of the brain, as described above. No mass or abnormal enhancement. Electronically Signed: Kee Bowens MD at 8:52 EDT ,
== END | disposition home or self-care (01) ==
PROVIDERS: PCP Family Medicine; Referring Provider Student in an Organized Health Care Education/Training Program; Visit Provider Student in an Organized Health Care Education/Training Program
DX: C34.11 Malignant neoplasm of upper lobe, right bronchus or lung (principal)
CPT/HCPCS: 70553; A9575

== ENCOUNTER → 2023-08-11 | Outpatient (CLI) | payer MEDICARE, SELFPAY ==
--- NOTE | 2023-08-11 08:05 | CT_ITS ---
STUDY: CT CHEST T ABDOMEN WITH CONTRAST REASON FOR EXAM: Female, 67 years old. SCLC limited stage- surveillance CT RADIATION DOSAGE (If Supplied By Facility): CTDIvol = ( 9.08 ) mGy, DLP = ( 494.49 ) mGycm TECHNIQUE: Transaxial imaging was performed following intravenous administration of 100 CC ISOVUE 370. Individualized dose optimization techniques were used for this CT. COMPARISON: Comparison is made with prior study dated February 02, 2023. FINDINGS: CHEST Since prior study, there has been improvement in the amount of scarring in the right upper lobe with the THIS is. There now is evidence of a 7.9 mm noncalcified nodule in the right lung apex as seen on axial image #24 and coronal image #155. This was not clearly seen on prior study. Residual bronchiectasis in the right perihilar region. There is no demonstrated pleural abnormality. Normal heart and pericardium. Normal mediastinum. Normal hilar regions. Normal unenhanced pulmonary arteries. Normal aorta arch and descending thoracic aorta. There are multi-level degenerative changes of the thoracic spine. ABDOMEN Stable 3 mm cyst in the left lobe of the liver. Hepatomegaly. Normal gallbladder and extrahepatic biliary system. Normal spleen. Normal pancreas. Normal bilateral adrenal glands. Normal right kidney. Normal left kidney. Normal visualized stomach. Normal small intestine. Normal colon. The appendix is visualized and appears normal. There is diffuse atherosclerotic calcification of the abdominal aorta, without a demonstrated aneurysm. Normal inferior vena cava. Normal retroperitoneum. Normal abdominal wall. There are mild degenerative changes of the visualized lumbar spine. CT/CT Chest AND Abd W/ Contrast IMPRESSION: 7.9 mm noncalcified nodule in the right lung apex as described. This was not well-seen on prior examination. Interval improvement in the amount of the bronchiectasis and scarring in the right upper lobe as compared to prior study. Hepatomegaly. Electronically Signed: Manny Alarcon MD at 10:11 EDT ,
[2023-08-11 08:32] LABS: CREATININE FINGERSTICK 1.1 mg/dL (0.55-1.02)
== END | disposition home or self-care (01) ==
LOC: CT 08:01
PROVIDERS: PCP Family Medicine; Referring Provider Nurse Practitioner Family; Visit Provider Nurse Practitioner Family
DX: C34.11 Malignant neoplasm of upper lobe, right bronchus or lung (principal)
CPT/HCPCS: 71260; 74160; Q9967

== ENCOUNTER → 2023-08-24 | Outpatient (CLI) | payer MEDICARE, SELFPAY ==
--- NOTE | 2023-08-24 15:05 | BD_ITS ---
STUDY: DUAL ENERGY X-RAY ABSORPTIOMETRY / DXA REASON FOR EXAM: Female, 68 years old. V76.12ScreeningBONE DENSITY REASON FOR EXAM TECHNIQUE: Bone Mineral Density (BMD) measurements of lumbar spine and bilateral hips were obtained. COMPARISON: None. FINDINGS: Lumbar Spine (L1-L4): g/cm2 (1.064) / T-score (0.2) / Z-score (2.0) Findings are suggestive of normal bone density with a low fracture risk. Left Femur Total: g/cm2 (0.991) / T-score (0.4) / Z-score (1.7) Left Femoral Neck: g/cm2 (0.900) / T-score (0.5) / Z-score (2.0) Right Femur Total: g/cm2 (1.002) / T-score (0.5) / Z-score (1.8) Right Femoral Neck: g/cm2 (0.933) / T-score (0.8) / Z-score (2.3) BD/Dexa Bone Density Study IMPRESSION: The patient is considered normal as outlined below according to World Hemant Organization (WHO) criteria with a low fracture risk. Reference Information: The T-score is the number of standard deviations above or below the standard which is normal for young adults at their peak bone mineral density. The World Health Organization (WHO) interprets the T-scores as follows: Above -1 Normal bone density Between -1 and -2.5 Osteopenia Equal to / or below -2.5 Osteoporosis As a practical clinical guideline, osteopenia may be graded as follows: Mild -1 through -1.5 Moderate -1.6 through -2.0 Severe -2.1 through -2.4 The Z-score is the number of standard deviations above or below age-matched controls. A Z-score of less than -1.5 would be considered abnormal. References: 1. NIH Osteoporosis and Related Bone Diseases www osteo.org 2. International Society for Clinical Densitometry www iscd.org 3. National Osteoporosis Foundation www nof.org Electronically Signed: Manny Alarcon MD at 15:39 EDT ,
== END | disposition home or self-care (01) ==
LOC: OPBD 15:00
PROVIDERS: PCP Family Medicine; Referring Provider Family Medicine; Visit Provider Family Medicine
DX: Z13.820 Encounter for screening for osteoporosis (principal); Z78.0 Asymptomatic menopausal state
CPT/HCPCS: 77080

== ENCOUNTER → 2023-10-20 | Outpatient (CLI) | payer MEDICARE, SELFPAY ==
--- NOTE | 2023-10-20 08:39 | CT_ITS ---
STUDY: CT CHEST T ABDOMEN WITH CONTRAST REASON FOR EXAM: Female, 68 years old. F/U SCLC IV CONTRAST ONLY RADIATION DOSAGE (If Supplied By Facility): CTDIvol = ( 11.18 ) mGy, DLP = ( 689.37 ) mGycm TECHNIQUE: Transaxial imaging was performed following intravenous administration of IV 100mL Isovue-300. Individualized dose optimization techniques were used for this CT. COMPARISON: 08/11/2023 FINDINGS: CHEST Moderate emphysema. No change in right apical scarring. Interval increase in size of a noncalcified nodule in the right upper lobe of the lungs from 0.8 cm in diameter to 1.4 cm in diameter consistent with worsening bronchogenic carcinoma. No new noncalcified nodule or mass. There is no demonstrated pleural abnormality. Normal heart and pericardium. Normal mediastinum. Normal hilar regions. Normal unenhanced pulmonary arteries. Normal aorta arch and descending thoracic aorta. Normal osseous structures. There is no demonstrated abnormality of the visualized upper abdomen. ABDOMEN The visualized lung bases are unremarkable. The visualized portions of the heart are within normal limits. Normal liver. Normal gallbladder and extrahepatic biliary system. Normal spleen. Normal pancreas. Normal bilateral adrenal glands. Normal right kidney. Normal left kidney. Normal visualized stomach. Normal small intestine. Normal colon. The appendix is visualized and appears normal. Normal abdominal aorta. Normal inferior vena cava. Normal retroperitoneum. Normal abdominal wall. Mild levoscoliosis lumbar spine. CT/CT Chest AND Abd W/ Contrast IMPRESSION: Enlarging right upper lobe pulmonary nodule worrisome for worsening bronchogenic carcinoma. No CT evidence of metastatic disease. Electronically Signed: Kristofer Bah MD at 10:54 EDT ,
[2023-10-20 09:01] LABS: CREATININE FINGERSTICK < 1.0 mg/dL (0.55-1.02); EGFR FINGERSTICK > 60.0000 mL/min (>60)
== END | disposition home or self-care (01) ==
PROVIDERS: PCP Family Medicine; Referring Provider Internal Medicine Hematology & Oncology; Visit Provider Internal Medicine Hematology & Oncology
DX: C34.11 Malignant neoplasm of upper lobe, right bronchus or lung (principal); C77.9 Secondary and unspecified malignant neoplasm of lymph node, unspecified
CPT/HCPCS: 71260; 74160; Q9967

== ENCOUNTER 2023-11-22 07:44 | Outpatient (CLI) | payer MEDICARE, SELFPAY ==
[2023-11-22] VITALS (15 sets, daily range): BP systolic 91–142; BP diastolic 45–84; PULSE 71–81; RESP 12–18; TEMP 36.1; O2SAT 97–100; BMI 23.8
[2023-11-22 08:34] LABS: Partial Thromboplast Time 25.6 Seconds (24.1-36.2)
[2023-11-22] MEDS: 0.9% Normal Saline (250mL Bag) 250 ML 15 ML IV (09:06)
[2023-11-22] MEDS: Midazolam 2 MG/2 ML Syringe IV ×2 (09:07→09:16)
[2023-11-22] MEDS: fentaNYL 100 MCG/2 ML Ampul IV (09:08)
--- NOTE | 2023-11-22 09:15 | RAD_ITS ---
STUDY: X-RAY CHEST REASON FOR EXAM: Female, 68 years old. Post BIOPSY -- Immediately post lung biopsy TECHNIQUE: Inspiration expiration views COMPARISON: Comparison is made with prior study January 26, 2023. FINDINGS: On the immediate post right lung biopsy radiographs, there is a 5% right pneumothorax. RAD/Chest Insp/Exp 2 View IMPRESSION: 5% right pneumothorax on the immediate post right lung biopsy radiographs. Electronically Signed: Manny Alarcon MD at 9:53 EDT ,
[2023-11-22] MEDS: Lidocaine 2% (20 ml mdv) 20 ML Vial INFILT (09:19)
--- NOTE | 2023-11-22 09:30 | IMM_PTH ---
PATIENT: ASIF HERNANDEZ LOC: CT U#:[id number] AGE/SX: 68/F ROOM: RE11/22/[address]: Dr. Chadwick Munson MD : 1955 BED: DIS: 11/22/2023 SPEC #: [id number] RECD: 11/22/23 09:55 STATUS: RODRIGO REQ #: [id number] ANNA: 11/22/23 09:[address]: Chadwick Munson DEPT: IMMUNOHISTOCHEMISTRY RECD BY: Wesley Lomeli ENTERED: 11/22/23 09:56 SP TYPE: IMMUNO OTHR DR: Lynda Alonso MD Tissues: Lung, NOS Procedures: Synapto (add) CD45 (add) CD56 (add) CHROMO (add) CK20 (add) CK7 (add) CK8 (add) KI-67 (add) P53 (add) Pankeratin (initial) PHYSICIAN & INSTITUTION [place] [id number] SPECIMEN INFORMATION: Tissue Source: Right upper lobe lung, CT guided core biopsy Clinical Info: Right lung mass Specimen Number: [id number] CPT code: [id number] METHODOLOGY: Deparaffinized sections of prefer/formalin-fixed tissue or PAP/DQ stained slides are incubated with monoclonal/polyclonal antibodies/oligonucleotide probes. Localization is made via biotin free immunoperoxidase method. Appropriate controls are performed and reacted as expected. Results on target cell population are indicated in the following table: RESULTS: ANTIBODY / CLONE RESULT AE1-3 (AE1/AE3/PCK26) positive CK7 (OV-TL12/30) positive CK8 (99ohpsR58) positive, weak CK20 (KS20.8) negative CD45 (RP2/18) negative CD56 (123C3.D5) positive Chromo (LK2H10) positive Synapto (polyclonal) positive P53 (DO-7) positive (missense mutation pattern) Ki-67 (30-9) positive high , >95% These tests were developed and their performance characteristics determined by [facility]. They may not have been cleared or approved by the U.S. Food and Drug Administration. The FDA has determined that such clearance or approval is not necessary. The above immunohistochemical/dualISH markers are ordered and reviewed by the Pathologist. 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 ERIC/ 11/23/2023
--- NOTE | 2023-11-22 09:30 | ASPIGT_PTH ---
PATIENT: ASIF HERNANDEZ LOC: CT U#:[id number] AGE/SX: 68/F ROOM: RE11/22/[address]: Dr. 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 See comment. ERIC/mr 11/23/2023 COMMENT The specimen is evaluated at the time of biopsy by Dr. Gordon. Immediate Evaluation = Malignant cells present derived from small cell carcinoma. Immunohistochemistry ([id number]) supports the above diagnosis. Molecular study of the tumor can be performed if clinically indicated. Please notify the laboratory if it is needed. Please make reference to previous specimen [id number] EBUS, TBNA site 4R with diagnosis of atypical cells consistent with small cell carcinoma of the lung and EBUS, TBNA site 7 with diagnosis of positive for malignant cells consistent with small cell carcinoma of the lung. Case has been reviewed in consultation with Dr. Bennett who concurs with the above diagnosis. IDC:AM MICROSCOPIC DESCRIPTION Slides are reviewed. GROSS DESCRIPTION Received in fixative is one container labeled with the patient's name and designated Right lung biopsy. The specimen consists of multiple irregular fragments of hanson soft tissue that in aggregate measure 1.5 x 0.2 x 0.1 cm. The specimen is totally submitted in one cassette. Two touch imprints are prepared at the time of core biopsy. SJ/mr 11/22/2023 TC:0 [facility]:[id number] ADDENDUM ADDENDUM ADDENDUM ADDENDUM ADDENDUM ADDENDUM ADDENDUM ADDENDUM ADDENDUM ADDENDUM ADDENDUM ADDENDUM ADDENDUM ADDENDUM 03/10/2025 11:37 ADDENDUM 03/10/2025 11:37 ADDENDUM 03/10/2025 11:37 ADDENDUM 03/10/2025 11:37 ADDENDUM 03/10/2025 11:37 This addendum is added to incorporate an outside pathology consultation report. The case was examined at [facility] by Dr. Ernst (#[id number]) and the following diagnosis was rendered. A. 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 Note: The neoplastic cells are positive for AE 1/3, CD56, CK7, chromogranin, synaptophysin, focally weakly positive for CK8, and negative for CD45, CK20. P53 shows wild type staining patter. Ki67 proliferation index is 95% by manual quantification. All the stains were performed at the outside institution. Please see complete above mentioned consultation report in EMR
--- NOTE | 2023-11-22 11:06 | PRO.PCM_ITS ---
Procedure Report Date of Procedure: 11/22/23 Assessment & Plan Assessment/Plan (1) Right upper lobe pulmonary nodule: PLAN: PROCEDURE: CT GUIDED CORE NEEDLE LUNG BIOPSY ORDERING PROVIDER: Dr. Munson INDICATION: Female, 68 years old. Right upper lobe lung nodule. PROVIDER: CESAR Lynn CONSENT: Written informed consent was obtained having explained the risks, benefits and alternatives in detail with the patient who accepted the risks and agreed to proceed. Laboratory review and clinical assessment was performed. PRE-PROCEDURE SEDATION ASSESSMENT: Current history and physical dictated by referring physician and reviewed. No clinical changes since date of exam. Patient has a Mallampati Score of Class 1 and ASA Class of 3. PROCEDURAL SEDATION PROTOCOL: The Drugs used were: 2 mg Versed, IV, and 50 mcg Fentanyl, IV. The sedation time was: 22 minutes, starting at 9:07 AM and terminated at 9:29 AM. The procedural sedation protocol was independently monitored by the department nurse. RADIATION DOSAGE (If Supplied By Facility): CTDIvol = 17.57 mGy, DLP = 311.73 mGycm Individualized dose optimization techniques were used for this CT. TECHNIQUE: The patient was placed in a prone position. A noncontrast CT was performed to localize the lesion in the right upper lobe lung. The skin surface was prepped and draped in a sterile fashion. 2% lidocaine was used for local anesthesia. Using CT guidance, a 20-gauge coaxial biopsy device was advanced to the periphery of the lesion. A total of 5 core specimens were obtained. Specimens were microscopically reviewed by pathology in the CT suite and placed in formali n solution. BioSentry tract sealant system was deployed at the biopsy site, and the biopsy needle was removed. A sterile occlusive dressing was applied to the biopsy site. The patient tolerated the procedure well. An immediate chest xray was ordered, per protocol. A negative biopsy does not exclude malignancy. Further imaging or clinical followup based on patient condition and degree of clinical suspicion for malignancy. Suggest rebiopsy, if biopsy results do not match with clinical scenario. IMPRESSION: 1. CT directed core needle biopsy of right upper lobe lung nodule using CT image guidance with image documentation as described. Pathology results are pending. 2. Procedural Sedation protocol utilized with independent monitoring by the department nurse. Procedures Radiology Radiology CT Procedures: [id number] Biopsy Lung
--- NOTE | 2023-11-22 11:15 | RAD_ITS ---
STUDY: X-RAY CHEST REASON FOR EXAM: Female, 68 years old. -- 2 hours post lung biopsy TECHNIQUE: Frontal inspiration and expiration views of the chest. COMPARISON: Earlier the same day. FINDINGS: There are monitoring devices. There is 5.7 cm right upper lobe opacity with consolidation and/or mass. There is increased right pneumothorax measuring 2.4 cm at the apex. Normal size heart. Normal mediastinum and meño. Normal visualized pulmonary arteries. Normal visualized aortic arch and descending thoracic aorta. Normal visualized thoracic spine. Normal visualized ribs, clavicles, and shoulders. There is no demonstrated abnormality of the visualized soft tissue structures of the upper abdomen. RAD/Chest Insp/Exp 2 View IMPRESSION: Increased size of right pneumothorax. Right upper lung consolidation and mass. Electronically Signed: Kee Bowens MD at 10:40 EDT ,
--- NOTE | 2023-11-22 11:20 | NURSING ---
AFTER SECOND CHEST XRAY PATIENT CONTINUES TO HAVE SMALL PNEUMOTHORAX. DR. YOUNG IS COMFORTABLE WITH PATIENT BEING DISCHARGED TO HOME. PATIENT DENIES PAIN AND SHORTNESS OF BREATH. PATIENT EDUCATED ON WHAT A PNEUMOTHORAX IS PER FRANCISCO RODRIGUEZ CNP. PATIENT INSTRUCTED TO RETURN TO ED WITH ANY CHEST PAIN OR SHORTNESS OF BREATH. ORDER TO HAVE REPEAT CHEST XRAY ON MONDAY. PATIENT IS AWARE AND VERBALIZED UNDERSTANDING.
== END 2023-11-22 23:59 | disposition home or self-care (01) ==
PROVIDERS: PCP Family Medicine; Referring Provider Internal Medicine Hematology & Oncology; Visit Provider Internal Medicine Hematology & Oncology
DX: C34.91 Malignant neoplasm of unspecified part of right bronchus or lung (principal); R91.1 Solitary pulmonary nodule; Z01.812 Encounter for preprocedural laboratory examination; J93.9 Pneumothorax, unspecified
CPT/HCPCS: 32408; 36415; 71046; 77012; 85610; 85730; 88172; 88305; 88313; 88341; 88342; 99156; J7050; C2613

== ENCOUNTER → 2023-11-24 | Outpatient (CLI) | payer MEDICARE, SELFPAY ==
--- NOTE | 2023-11-24 09:50 | RAD_ITS ---
STUDY: X-RAY CHEST REASON FOR EXAM: Female, 68 years old. post rt lung biopsy pneumo eval TECHNIQUE: Frontal inspiration and expiration views of the chest. COMPARISON: November 22, 2023 FINDINGS: Right upper lung opacity with mass and improvement of consolidation. There is stable right upper pneumothorax measuring 2.4 cm at the apex. Normal size heart. Normal mediastinum and meño. Normal visualized pulmonary arteries. Normal visualized aortic arch and descending thoracic aorta. Normal visualized thoracic spine. Normal visualized ribs, clavicles, and shoulders. There is no demonstrated abnormality of the visualized soft tissue structures of the upper abdomen. RAD/Chest Insp/Exp 2 View IMPRESSION: Stable right pneumothorax. Improvement of consolidation in the right upper lung with stable mass. Electronically Signed: Kee Bowens MD at 10:45 EDT ,
== END | disposition home or self-care (01) ==
PROVIDERS: PCP Family Medicine; Referring Provider Nurse Practitioner Acute Care; Visit Provider Nurse Practitioner Acute Care
DX: R91.8 Other nonspecific abnormal finding of lung field (principal); J93.9 Pneumothorax, unspecified
CPT/HCPCS: 71046

== ENCOUNTER → 2023-11-27 | Outpatient (CLI) | payer MEDICARE, SELFPAY ==
--- NOTE | 2023-11-27 12:10 | RAD_ITS ---
STUDY: X-RAY CHEST REASON FOR EXAM: Female, 68 years old. RE-EVALUATE PNEUMOTHORAX TECHNIQUE: AP inspiration and expiration views. COMPARISON: Comparison is made with prior examination dated November 24, 2023. FINDINGS: Since prior study, there has been improvement in the right apical pneumothorax. Persistent right upper lobe mass. RAD/Chest Insp/Exp 2 View IMPRESSION: Improvement in the right apical pneumothorax as compared to prior study. Persistent mass in the right lung apex. Electronically Signed: Manny Alarcon MD at 12:26 EDT ,
== END | disposition home or self-care (01) ==
PROVIDERS: PCP Family Medicine; Referring Provider Nurse Practitioner Acute Care; Visit Provider Nurse Practitioner Acute Care
DX: R91.8 Other nonspecific abnormal finding of lung field (principal)
CPT/HCPCS: 71046

== ENCOUNTER → 2023-12-04 | Outpatient (CLI) | payer MEDICARE, SELFPAY ==
--- NOTE | 2023-12-04 08:09 | MRI_ITS ---
STUDY: MRI BRAIN WITH AND WITHOUT CONTRAST REASON FOR EXAM: Female, 68 years old. eval for metastatic disease -- small cell lung cancer TECHNIQUE: Standardized multiplanar fat and water weighted pulse sequences were obtained. IV 13cc Clariscan was administered for the contrast portion of the examination. COMPARISON: PET scan November 07, 2023. MR brain August 03, 2023. FINDINGS: There is moderate cerebral atrophy with widening of the extra-axial spaces and ventricular dilatation. There are multiple white matter hyperintensities, distributed throughout the deep white matter tracts of the cerebral hemispheres, consistent with moderate chronic white matter ischemic changes. Normal bilateral basal ganglia. Normal thalami. There is no extra-axial fluid accumulation. Normal flow voids within the major intracranial circulation suggesting patency by spin echo criteria. Normal venous enhancement. There is no enhancing intra-axial or extra-axial abnormality. Normal sella turcica, pituitary gland, infundibular stalk, optic chiasm and hypothalamus. Normal tectal plate and pineal gland. Normal midbrain, tye and medulla. Normal cerebellum. Normal basal cisterns. Normal bilateral temporal bones. Normal bilateral internal auditory canals. No demonstrated orbital abnormality, within the constraints of a routine brain study. Normal visualized paranasal sinuses. Normal calvarium and skull base. Normal visualized soft tissue structures. Normal visualized upper cervical spine. MRI/Brain W/WO Contrast IMPRESSION: Involutional changes of the brain, as described above. No evidence of metastatic disease. Electronically Signed: Darius Molina MD at 16:26 EDT ,
== END | disposition home or self-care (01) ==
PROVIDERS: PCP Family Medicine; Referring Provider Student in an Organized Health Care Education/Training Program; Visit Provider Student in an Organized Health Care Education/Training Program
DX: C34.11 Malignant neoplasm of upper lobe, right bronchus or lung (principal)
CPT/HCPCS: 70553; A9575

== ENCOUNTER → 2023-12-14 | Outpatient (CLI) | payer MEDICARE, SELFPAY ==
[2023-12-14 12:43] LABS: Absolute Lymphocyte Count 1.76 X10^3/uL (0.83-4.51); Basophil# 0.05 X10^3/uL; Basophil% 0.7 % (0-1); Eosinophil# 0.09 X10^3/uL; Eosinophils% 1.2 % (0-5); Hematocrit 43.1 % (37-47); Hemoglobin 13.7 g/dL (12.0-15.0); Lymphocyte # 1.76 X10^3/ul (0.83-4.51); Lymphocyte % 23.2 % (19-41); Mean Corp Hgb Conc 31.8 g/dL (32-36); Mean Corpuscular Hgb 28.8 pg (27.0-32.0); Mean Corpuscular Volume 90.5 fL (81-99); Mean Platelet Vol. 8.9 fl (6.2-12.0); Monocyte# 0.68 X10^3/uL; NRBC Flagged by Analyzer 0 % (0-5); Neutrophil # 4.98 X10^3/uL (2.7-7.7); Neutrophil % 65.6 % (47-70); Platelet Count 264 K/mm3 (150-450); RBC Distribution Width CV 13.9 % (11.6-14.6); RBC Distribution Width SD 47.1 fl (35.1-43.9); Red Blood Count 4.76 M/mm3 (4.2-5.4); White Blood Count 7.6 K/mm3 (4.4-11.0)
[2023-12-14 12:44] LABS: Vitamin D,25 Hydroxy 63.5 ng/mL
[2023-12-14 12:55] LABS: ALB/GLOB Ratio 1.1 RATIO (0.9-2.4); AST(SGOT) 18 U/L (15-37); Alanine Aminotransfer ALT/SGPT 20 U/L (13-56); Albumin, Serum 3.9 g/dL (3.2-5.0); Alkaline Phosphatase 69 U/L (45-117); Anion Gap 5 (5-15); BUN 15 mg/dL (7-18); BUN/Creat Ratio 14.6 RATIO (10-20); Calcium,Total 9.3 mg/dL (8.5-10.1); Chloride 106 mmol/L (98-107); Creatinine, Serum 1.03 mg/dL (0.55-1.02); EST Glomerular Filtration Rate 57 mL/min (>60); Est Glom Filt Rate - Afr Amer 69 mL/min (>60); Globulin 3.7 g/dL (2.2-4.2); Glucose 118 mg/dL (74-106); Potassium 4.2 mmol/L (3.5-5.1); Protein, Total 7.6 g/dL (6.4-8.2); Sodium Level 138 mmol/L (136-145)
[2023-12-14 13:29] LABS: Hemoglobin A1c 5.8 % (3.8-5.6)
== END | disposition home or self-care (01) ==
PROVIDERS: PCP Family Medicine; Referring Provider Family Medicine; Visit Provider Family Medicine
DX: I10 Essential (primary) hypertension (principal); R73.03 Prediabetes; E55.9 Vitamin D deficiency, unspecified
CPT/HCPCS: 36415; 80053; 82306; 83036; 85025

== ENCOUNTER → 2024-01-05 | Outpatient (CLI) | payer MEDICARE, SELFPAY ==
--- NOTE | 2024-01-05 13:55 | ART_ITS ---
Reason For Study: Claudication Procedure A bilateral lower extremity continuous wave Doppler with analog waveform analysis and ankle brachial indexes. Left Segmental Pressures Left brachial= 133mmHg. Left posterior tibial artery = 171mmHg. Left dorsalis pedis artery = 139mmHg. The left posterior tibial artery waveforms are biphasic. The left dorsalis pedis waveforms are triphasic. Right Segmental Pressures Right brachial= 134mmHg. Right posterior tibial artery = 120mmHg. Right dorsalis pedis artery = 136mmHg. The right posterior tibial artery waveforms are biphasic. The right dorsalis pedis waveforms are triphasic. Indices The right ankle brachial index by the posterior tibial artery is 0.90. The right ankle brachial index by the dorsalis pedis is 1.01. The left ankle brachial index by the posterior tibial artery is 1.28. The left ankle brachial index by the dorsalis pedis is 1.04. VL/Ankle Brachial Index Interpretation Summary Right MAURICE 1.01, normal. Doppler/PVR waveforms of the right ankle normal at rest . Left MAURICE 1.28, normal. Doppler/PVR waveforms of the left ankle normal at rest. Ordering Physician: Lynda Alonso Referring Physician: LYNDA ALONSO MD Performed By: Jose Stallworth RVT
== END | disposition home or self-care (01) ==
LOC: CVS 13:52
PROVIDERS: PCP Family Medicine; Referring Provider Family Medicine; Visit Provider Family Medicine
DX: I73.9 Peripheral vascular disease, unspecified (principal)
CPT/HCPCS: 93922

== ENCOUNTER → 2024-01-17 | Outpatient (CLI) | payer MEDICARE, SELFPAY ==
--- NOTE | 2024-01-17 09:45 | RAD_ITS ---
EXAM: XR LUMBOSACRAL SPINE, 2 OR 3 VIEWS CLINICAL INDICATION: back / sciatic pain TECHNIQUE: Frontal and lateral views of the lumbar spine and sacrum. COMPARISON: PET/CT, 11/07/2023 FINDINGS: VERTEBRAE: Multilevel facet arthrosis and endplate osteophytosis. [place] left thoracolumbar curvature. Preserved vertebral body height. No fracture. No spondylolisthesis. DISC SPACES: Multilevel intervertebral disc height loss. VASCULATURE: Vascular calcifications. GASTROINTESTINAL TRACT: Normal as visualized. Included bowel gas pattern is non-obstructive. RAD/Lumbar Spine 2 or 3 Views IMPRESSION: Degenerative changes and apex left thoracolumbar curvature. No acute osseous abnormalities. Electronically Signed: Ochoa Matt DO at 23:58 EDT ,
== END | disposition home or self-care (01) ==
LOC: MTRAD 09:42
PROVIDERS: PCP Family Medicine; Referring Provider Family Medicine; Visit Provider Family Medicine
DX: M54.30 Sciatica, unspecified side (principal)
CPT/HCPCS: 72100

== ENCOUNTER 2024-03-04 06:49 | Outpatient (CLI) | payer MEDICARE, SELFPAY ==
--- NOTE | 2024-03-04 06:53 | CT_ITS ---
STUDY: CT CHEST T ABDOMEN WITH CONTRAST REASON FOR EXAM: Female, 68 years old. Known small cell lung cancer, restaging RADIATION DOSAGE (If Supplied By Facility): CTDIvol = ( ) mGy, DLP = ( ) mGycm TECHNIQUE: Transaxial imaging was performed following intravenous administration of IV 100mL Isovue-300. Individualized dose optimization techniques were used for this CT. COMPARISON: 10/20/2023. FINDINGS: CHEST Lung windows show persistent underlying emphysema with stable right apical scarring and decrease in size of a previously noted right upper lobe nodule now measuring 0.8 cm down from 1.4 cm on the previous study. Stable nonspecific pleural thickening in the right hemithorax likely from previous radiation therapy. No organized infiltrate or effusion, no new suspicious noncalcified mass or nodule. Normal heart and pericardium. No calcified coronary vessels. No suspicious axillary, mediastinal or perihilar adenopathy. . Normal unenhanced pulmonary arteries. Normal aorta arch and descending thoracic aorta. There are multi-level degenerative changes of the thoracic spine. ABDOMEN Normal liver. Normal gallbladder and extrahepatic biliary system. Normal spleen. Normal pancreas. Normal bilateral adrenal glands. Normal right kidney. Normal left kidney. Normal visualized stomach. Normal small intestine. Normal colon. There is non-visualization of the appendix. There is diffuse atherosclerotic calcification of the abdominal aorta, without a demonstrated aneurysm. Normal inferior vena cava. Normal retroperitoneum. Normal abdominal wall. There are diffuse degenerative changes of the visualized lumbar spine. CT/CT Chest AND Abd W/ Contrast IMPRESSION: Underlying emphysema with stable nonspecific pleural thickening in the right upper lung field and scarring. A previously noted noncalcified nodule in the right upper lobe has continued to decrease in size compared to previous studies. On the previous study it measured 1.4 cm, on the current study it measures 0.8 cm No organized infiltrate or effusion No suspicious noncalcified mass or nodule No suspicious adenopathy No suspicious solid organ abnormality No free intraperitoneal fluid, air, or suspicious adenopathy Degenerative bony changes Electronically Signed: Maldonado Jacobsen MD at 15:01 EST ,
--- NOTE | 2024-03-04 06:53 | CT_ITS ---
STUDY: CT CHEST WITHOUT CONTRAST REASON FOR EXAM: Female, 68 years old. Hyperlipidemia, unspecified RADIATION DOSAGE (If Supplied By Facility): CTDIvol = ( 10 ) mGy, DLP = ( 745.26 ) mGycm TECHNIQUE: Transaxial imaging was performed without the administration of intravenous contrast material. Cardiac Overread examination. Individualized dose optimization techniques were used for this CT. COMPARISON: No relevant priors. FINDINGS: CHEST Emphysematous changes more pronounced in the upper lobes with evidence of bronchiectasis. This is worse in the right upper lobe. There is no demonstrated pleural abnormality. There are calcifications of the coronary arteries. Small anterior pericardial effusion. Normal mediastinum. Normal hilar regions. Normal unenhanced pulmonary arteries. There is atherosclerotic calcification of the aortic arch. There are multi-level degenerative changes of the thoracic spine. There is no demonstrated abnormality of the visualized upper abdomen. CT/Limited Chest CT Cardiac Only IMPRESSION: Coronary artery calcification. Small anterior pericardial effusion. Emphysematous changes more pronounced in the right upper lobe with evidence of bronchiectasis. Electronically Signed: Manny Alarcon MD at 11:11 [facility] ,
[2024-03-04 07:21] LABS: CREATININE FINGERSTICK 1.1 mg/dL (0.55-1.02)
--- NOTE | 2024-03-04 08:07 | CA.SCORE ---
Calcium Scoring Date of Study:: 03/04/24 Indications Indications: Hyperlipidemia Coronary Calcium Scoring: High-resolution Computed Tomographic imaging of the chest was performed on [03/04/2024], with particular attention paid to the coronary arteries. Images from the examination were analyzed for the presence and extent of coronary artery calcification , using coronary calcium quantification software. The patient tolerated the procedure well and there were no complications. The results of the coronary calcification analysis are provided below. Findings Coronary Artery Left Main (LM): 5.7 Left Anterior Descending (LAD): 33.2 Left Circumflex (LCX): 54.6 Right Coronary Artery (RCA): 5.09 Total Agatston Score: 98.59 Percentile Rankin-75th percentile Calcium Scoring Interpretation: Different methods to categorize the overall amount of coronary plaque. Overall amount CAC SIS Visual of coronary plaque P1 Mild -100 <2 1-2 vessels with mild amount of plaque P2 Moderate 101-300 3-4 1-2 vessels with moderate amount, 3 vessels with mild amount of plaque P3 Severe 301-999 5-7 3 vessels with moderate amount, 1 vessel with severe amount of plaque P4 Extensive >1000 >8 2-3 vessels with severe amount of plaque Calcium Score: Mild: 1-2 vessels w/mild amount of plaque Conclusion: Mild atherosclerotic plaquing noted.
== END 2024-03-04 23:59 | disposition home or self-care (01) ==
PROVIDERS: PCP Family Medicine; Referring Provider Internal Medicine Cardiovascular Disease; Visit Provider Internal Medicine Cardiovascular Disease
DX: Z01.812 Encounter for preprocedural laboratory examination (principal); C77.9 Secondary and unspecified malignant neoplasm of lymph node, unspecified; C34.11 Malignant neoplasm of upper lobe, right bronchus or lung; J43.9 Emphysema, unspecified; E78.5 Hyperlipidemia, unspecified; I31.39 Other pericardial effusion (noninflammatory); I25.10 Atherosclerotic heart disease of native coronary artery without angina pectoris
CPT/HCPCS: 71260; 74160; 75571; 76380; Q9967

== ENCOUNTER → 2024-03-07 | Outpatient (CLI) | payer MEDICARE, SELFPAY ==
--- NOTE | 2024-03-07 08:48 | NM_ITS ---
CLINICAL: 68-year-old female with history of primary lung carcinoma. WHOLE BODY 99m Tc MDP RADIONUCLIDE BONE SCINTIGRAPHY COMPARISON: Previous FDG PET CT study dated 11/07/2023 FINDINGS: Following the intravenous administration of 26.9 mCi of 99m Tc MDP, whole body bone images reveal: 1. Increased tracer uptake is noted in the sternoclavicular compartment of the left shoulder, the acromioclavicular compartments of both shoulders, the mid to lower cervical spine posteriorly on the left and right, subtly defined in the patellofemoral compartments of both knees, the posterior compartment of the right ankle, the right elbow and wrist articulations. 2. The remaining skeletal structures are scintigraphically unremarkable with normal-appearing renal images and urinary bladder activity identified. NM/Bone Scan Whole Body IMPRESSION: 1. The increase in tracer uptake noted in the bilateral shoulders, the cervical spine, right-left knees, the right ankle, the right elbow and wrist is commensurate with degenerative arthritis. 2. There is no definitive typical scintigraphic evidence of diffuse axial skeletal metastatic disease on the current examination. Electronically Signed: Kristofer Odonnell DO at 8:08 EST ,
== END | disposition home or self-care (01) ==
LOC: NM 08:47
PROVIDERS: PCP Family Medicine; Referring Provider Internal Medicine Hematology & Oncology; Visit Provider Internal Medicine Hematology & Oncology
DX: C34.91 Malignant neoplasm of unspecified part of right bronchus or lung (principal); C77.9 Secondary and unspecified malignant neoplasm of lymph node, unspecified
CPT/HCPCS: 78306; A9503

== ENCOUNTER 2024-03-22 12:27 | Outpatient (CLI) | payer MEDICARE, SELFPAY | END 2024-03-22 23:59 | disposition home or self-care (01) | PROVIDERS: PCP Family Medicine; Referring Provider Family Medicine; Visit Provider Family Medicine | DX: J32.9 Chronic sinusitis, unspecified (principal) | CPT/HCPCS: 36415 ==

== ENCOUNTER 2024-04-15 11:00 | Outpatient (RCR) | payer MEDICARE, SELFPAY ==
--- NOTE | 2024-01-23 07:44 | HP.PTEVAL_ITS ---
Patient's Visit Information Visit Information Visit Information: SAIF HERNANDEZ is a 68 year old F referred to Physical Therapy by Lynda Alonso MD with a diagnosis of Leg weakness. Date of Evaluation: 01/18/24 Physical Therapist: Arian Frey DPT Visit Plan Frequency: 3x /Week Duration: 6 Weeks Plan: 1) REIL progression ->> given as HEP at IE 2) core stability with LE strengthening 3) gym progression. focus on BLE and core strengthening in gym Subjective Subjective: Pt. is here today for her initial evaluation with diagnosis of leg weakness. Pt. reports over the past few months she has been having more issues with her legs being week, but also some numbness/tingling in her anterior thighs. She is having occasional back pain, but not much. Pt. reports things that were easy before are now difficult. Pt. reports no sudden weakness in her LEs, but reports weakness in her quads and tingling in the same region. Pt. reports having some issues in the mornings, but has not found a perfect pattern. Pt. denies shooting pain down either LE. Pt. is hopeful to decrease her N/T and weakness in her LEs in order to get back to all recreational and IADLs without issues. History of lung CA with radiation. Pain Lumbar spine: Pain Intensity (Out of 10): 1 Pain Intensity Range: 0 and 2 B anterior thighs: Pain Intensity (Out of 10): 1 Pain Intensity Range: 0 and 2 Objective Objective: POSTURE: Pt. has decent posture in stance. Normal iliac crest heights noted. PALPATION: Pt. has no pain with palpation of LEs. Pt. has some soreness with spring testing of lumbar spine with slight hypomobility noted throughout. NEURO: pt. has normal sensation in BLEs. Pt. is able to rise on heels and toes without issues. Normal DTR of BLEs. ROM: LUMBAR SPINE: flexion min loss mild increase NW, ext mod loss mild decrease NB, SB nil loss NE, rotation nil loss NE. Pt. has good hip ROM bilaterally. Slight HS tightness bilaterally. Pt. did have some decreased symptoms with REIL and with JHON. MMT: RLE: ankle DF 4+/5, PF 5/5; knee: ext 21#, flexion 14#; hip: flex 16#, abd 11#. LLE: ankle DF 5/5, PF 5/5; knee: ext 28#, flexion 17#; hip: flex 21#, abd 16#. Core strength poor+. GAIT: pt. has fairly normal gait pattern. Pt. has increased symptoms with walking, both slight soreness and BLE weakness. This did improve after REIL. 30 sec sit to stand test: 11 without use of UEs. STAIRS: Pt. is able to complete with 1 HR but reports high levels of LE fatigue and slight increase in anterior thigh pain Special Tests L/S Slump test left side: Negative L/S Slump test right side: Negative L/S Left Straight Leg Raise: Negative L/S Right Straight Leg Raise: Negative Lumbar Standing: Flexion - Mechanical Response: No effect Lumbar Standing: Flexion - Symptoms During Testing: Increases Lumbar Standing: Flexion - Symptoms After Testing: No worse Lumbar Standing: Extension - Mechanical Response: No effect Lumbar Standing: Extension - Symptoms During Testing: Decreases Lumbar Standing: Extension - Symptoms After Testing: No better Lumbar Lying: Extension - Mechanical Response: Increases motion Lumbar Lying: Extension - Symptoms During Testing: Decreases Lumbar Lying: Extension - Symptoms After Testing: Better Comments:: LE symptoms were improved with standing after REIL Balance/Special Test Scores Lower Extremity Functional Score: 57 Goals Goal 1:: LTG: Pt. to be I with HEP. Goal Time Frame: 4-6 Weeks Goal 2:: LTG: Pt. to have increased BLE strength by 10# throughout (currently: RLE: ankle DF 4+/5, PF 5/5; knee: ext 21#, flexion 14#; hip: flex 16#, abd 11#. LLE: ankle DF 5/5, PF 5/5; knee: ext 28#, flexion 17#; hip: flex 21#, abd 16#. Core strength poor+.) Goal 3:: LTG: Pt. to be able to complete all gym activities without increase in BLE symptoms. Goal Time Frame: 4-6 Weeks Goal 4:: LTG: Pt. to have increased lumbar ROM to full without increase in BLE symptoms. Goal Time Frame: 2-4 Weeks Goal 5:: LTG: Pt. to complete 17 reps with repeated sit to stand 30sec test indicating increased BLE functional strength. Rehabilitation Potential Physical Therapy Diagnosis: Pt. has signs and symptoms consistent with leg weakness. She did have some BLE weakness generally, but this did improve with lumbar extension this date. She has also been more sedentary over the last year or so with CA diagnosis. I would recommend PT to work on BLE strengthening, lumbar extension and core stability. Rehabilitation Potential: Excellent Anticipated Interventions Patient/Client Instruction: Educate patient on: Condition, Plan of Care, Risk Factors and Benefits of Fitness Program For the Purpose of:: To improve decision making, To facilitate caregiver knowledge, To improve self management, To prevent re-injury and To improve ability to perform tasks related to life management Therapeutic Exercise to Include: Strength training, Power training, Body mechanics, Postural training, Flexibilty training, Passive ROM, Active ROM and Dynamic Lumbar Stabilization For the Purpose of:: To decrease pain, To increase ROM, To improve nutrient delivery to tissue, To increase oxygenation perfusion, To improve muscle performance and motor function, To decrease level of supervision to perform tasks, To improve ability of physical actions for home/community/work/leisure, To improve gait and locomotor functions, To improve health of tissue, To decrease soft tissue restriction and To increase flexibility/ROM Text: Thank you for the opportunity to evaluate your patient. For Medicare and Medicare HMO plans, please review the plan of care and approve it. It will need to be FAXED BACK to us at [phone] for Medicare purposes. For Medicare only, by signing this I certify the plan of care. Please let me know if there are questions or concerns regarding this plan of care. Physician Signature: Date:
--- NOTE | 2024-03-04 07:47 | HP.PTREVAL ---
Re-Evaluation Intro: Lynda Alonso MD, It has been my pleasure to treat ASIF HERNANDEZ over the last 7 visits for Leg weakness. Please see the progress note below for an update on the physical therapy plan of care! Subjective Subjective: Pt. reports overall that PT has been helpful. She is able to complete more around the house and outside activities. Pt. reports that her back pain can still be high at times. She was able to complete some work outside some increase in symptoms. Objective Objective/Function: ROM: Lumbar spine: flexion min loss NE, ext min loss mild increase NW, SB min loss bilat incrase NW, rotation min loss bilat increase NW. Pt. has good B HIP ROM without increase in symptoms. SLight tightness in B HS. MMT: RLE: ankle DF 5/5, PF 5/5; knee: ext 24#, flexion 16#; hip: flex 18#, abd 13#. LLE: ankle DF 5/5, PF 5/5; knee: ext 29#, flexion 19#; hip: flex 23#, abd 17#. Core strength poor+ gait: Pt. has fairly normal gait pattern. She has a slight flexed posture in stance and with gait, but has improved. STAIRS: slight increase in symptoms with ascending. She is progressing with all of her goals. She is improving her strength, but not yet 10# increase throughout. Plan Plan Plan: I am asking for 7 more visits to work on core strengthening in neutral spine, progressing to gym exercises as able. Focus on on her strength in order to keep symptoms from returning as bad. Use stretching to reduction of symptoms in the short term. Pt. progress gym exercises to HEP as able. Balance/Gait/Functional tests Balance/Special Test Scores Lower Extremity Functional Score: 57 30 Second Chair Rise Test Seconds: 15 Goals Goals Goal 1:: LTG: Pt. to be I with HEP. Goal Time Frame: 4-6 Weeks Goal Progress: Progressing Goal 2:: LTG: Pt. to have increased BLE strength by 10# throughout (currently: MMT: RLE: ankle DF 5/5, PF 5/5; knee: ext 24#, flexion 16#; hip: flex 18#, abd 13#. LLE: ankle DF 5/5, PF 5/5; knee: ext 29#, flexion 19#; hip: flex 23#, abd 17#. Core strength poor+ Goal 3:: LTG: Pt. to be able to complete all gym activities without increase in BLE symptoms. Goal Time Frame: 4-6 Weeks Goal Progress: Progressing Goal 4:: LTG: Pt. to have increased lumbar ROM to full without increase in BLE symptoms. Goal Time Frame: 2-4 Weeks Goal Progress: Progressing Goal 5:: LTG: Pt. to complete 17 reps with repeated sit to stand 30sec test indicating increased BLE functional strength. Goal Progress: Progressing Anticipated Interventions Anticipated Interventions Patient/Client Instruction: Educate patient on: Condition, Plan of Care, Risk Factors and Benefits of Fitness Program For the Purpose of:: To improve decision making, To facilitate caregiver knowledge, To improve self management, To prevent re-injury and To improve ability to perform tasks related to life management Therapeutic Exercise to Include: Strength training, Power training, Body mechanics, Postural training, Flexibilty training, Passive ROM, Active ROM and Dynamic Lumbar Stabilization For the Purpose of:: To decrease pain, To increase ROM, To improve nutrient delivery to tissue, To increase oxygenation perfusion, To improve muscle performance and motor function, To decrease level of supervision to perform tasks, To improve ability of physical actions for home/community/work/leisure, To improve gait and locomotor functions, To improve health of tissue, To decrease soft tissue restriction and To increase flexibility/ROM Re-Evaluation Ending Re-evaluation ending: Please do not hesitate to contact me at [phone] by phone or if you have questions or concerns regarding this new plan of care! Sincerely, Arian Frey DPT
== END 2024-04-15 19:00 | disposition home or self-care (01) ==
LOC: PT 11:00
PROVIDERS: PCP Family Medicine; Referring Provider Family Medicine; Visit Provider Family Medicine
DX: R29.898 Other symptoms and signs involving the musculoskeletal system (principal)
CPT/HCPCS: 97110; 97161; 97530

== ENCOUNTER → 2024-04-24 | Outpatient (CLI) | payer MEDICARE, SELFPAY ==
--- NOTE | 2024-04-24 13:39 | RAD_ITS ---
EXAM: XR PELVIS, 1 OR 2 VIEWS CLINICAL INDICATION: HIP PAIN TECHNIQUE: Frontal view of the pelvis. COMPARISON: No relevant prior studies available. FINDINGS: BONES/JOINTS: Degenerative changes in the lower lumbar spine, bilateral SI joints, and bilateral hips. Trochanteric enthesophytes. No displaced fracture. No destructive or sclerotic lesions. Note that overlapping bowel shadows may however obscure fine detail. No widening of the pubic symphysis. SOFT TISSUES: No significant abnormality. No soft tissue swelling or gas. RAD/Pelvis 1 or 2 Views IMPRESSION: Degenerative changes. No acute findings. Electronically Signed: Ochoa Matt DO at 22:08 EST ,
== END | disposition home or self-care (01) ==
LOC: MTRAD 13:38
PROVIDERS: PCP Family Medicine; Referring Provider Anesthesiology; Visit Provider Anesthesiology
DX: M25.551 Pain in right hip (principal); M25.552 Pain in left hip
CPT/HCPCS: 72170

== ENCOUNTER → 2024-04-25 | Outpatient (CLI) | payer MEDICARE, SELFPAY ==
[2024-04-25 10:46] LABS: Hematocrit 44.9 % (37-47); Hemoglobin 14.6 g/dL (12.0-15.0); Mean Corp Hgb Conc 32.5 g/dL (32-36); Mean Corpuscular Hgb 29.9 pg (27.0-32.0); Mean Corpuscular Volume 91.8 fL (81-99); Mean Platelet Vol. 8.8 fl (6.2-12.0); Platelet Count 273 K/mm3 (150-450); RBC Distribution Width CV 13.8 % (11.6-14.6); RBC Distribution Width SD 46.9 fl (35.1-43.9); Red Blood Count 4.89 M/mm3 (4.2-5.4); White Blood Count 9.3 K/mm3 (4.4-11.0)
[2024-04-25 11:00] LABS: Anion Gap 4 (5-15); BUN 16 mg/dL (7-18); Calcium,Total 9.2 mg/dL (8.5-10.1); Chloride 106 mmol/L (98-107); Creatinine, Serum 1.14 mg/dL (0.55-1.02); EST Glomerular Filtration Rate 51 mL/min (>60); Est Glom Filt Rate - Afr Amer 61 mL/min (>60); Glucose 114 mg/dL (74-106); Potassium 4.7 mmol/L (3.5-5.1); Sodium Level 136 mmol/L (136-145)
== END | disposition home or self-care (01) ==
LOC: MTLAB 08:04
PROVIDERS: PCP Family Medicine; Referring Provider Nurse Practitioner Family; Visit Provider Nurse Practitioner Family
DX: N39.0 Urinary tract infection, site not specified (principal)
CPT/HCPCS: 36415; 80048; 85027

== ENCOUNTER 2024-04-28 12:15 | Emergency (ER) | payer MEDICARE, SELFPAY ==
[2024-04-28 12:24] VITALS: BP 135/87; PULSE 94; RESP 18; TEMP 36.9; O2SAT 97; BMI 24.8
--- NOTE | 2024-04-28 13:03 | ED.RN ---
Pt states she's decided not to wait to be seen as she just had blood work and urine tested on Monday at [facility]. This RN encouraged pt to f/u with PCP that did the testing for further evaluation.
== END 2024-04-28 15:15 | disposition left against medical advice (07) ==
LOC: ED 13:29
PROVIDERS: PCP Family Medicine
DX: M54.50 Low back pain, unspecified (principal); G89.29 Other chronic pain; E86.0 Dehydration; R11.0 Nausea; I10 Essential (primary) hypertension; Z79.899 Other long term (current) drug therapy; Z86.16 Personal history of COVID-19; Z87.891 Personal history of nicotine dependence
CPT/HCPCS: 99283

== ENCOUNTER 2024-04-29 08:57 | Emergency (ER) | payer MEDICARE, SELFPAY ==
[2024-04-29 08:57] VITALS: BP 141/109; PULSE 98; RESP 16; TEMP 37.1; O2SAT 98; BMI 26.2
--- NOTE | 2024-04-29 09:25 | ED.VIS.BACK ---
HPI History of Present Illness Chief Complaint: Back Narrative Narrative: Chief complaint and HPI: Lumbar back pain and abdominal pain. 68-year-old female with past medical history of HTN, previous lung cancer, and lumbar back pain since January presents for evaluation of back pain and intermittent abdominal pain and nausea. Patient states since January she has had lumbar back pain with radiation into the bilateral buttocks. Associated symptom is some numbness in the bilateral buttocks. Saw her PCP for this and diagnosed with sciatica. States that she had x-rays that were unremarkable as well as physical therapy without improvement. Patient has tried heat, ice, TENS unit, stretching and strengthening without improvement. States that she used to take ibuprofen for the pain but this was stopped. Patient recently followed up with orthopedics and is scheduled outpatient for a MRI. She is currently seeing pain management and was recently started on lorazepam, duloxetine, tinazidine. Patient states that she recently developed some nausea that she thought was secondary to the duloxetine so she stopped taking this she states she continued to have some nausea so she stopped taking all of her pain medicine. She states since then she has been having her lumbar back pain as well as intermittent abdominal pain and nausea. She denies any fever, chills, shortness of breath, chest pain, vomiting, diarrhea, constipation, dysuria, hematuria. Denies new numbness or weakness, urinary retention, stool or urinary incontinence, saddle anesthesia, recent invasive manipulation of the spine, intravenous drug use. Review of systems: See HPI Medications: As listed on the chart Allergies: As listed on the chart PFSH: Per chart Vital signs: As listed on the chart. Reviewed. Physical exam: Gen: A&O x3, NAD but uncomfortable secondary to pain Head: Normocephalic, atraumatic Eyes: No sclera icterus, conjunctiva clear, PERRL, EOMI ENT: Moist mucous membranes Neck: Trachea midline, No JVD CV: RRR, no murmurs, no peripheral edema Resp: Lungs CTA BL, no w/r/c GI: Abd soft, non-distended, non-tender, no r/r/g : No CVA tenderness Musc: Full ROM, no deformity, strength was 5 out of 5 in all extremities, no midline spinal tenderness, no bony step-off, no signs of trauma or infection, no saddle paresthesia Skin: Warm, dry Neuro: Alert, oriented, grossly intact, sensation intact Psych: Cooperative, appropriate mood and affect PFSH ON LICENSE OF [facility] Medical History Local recurrence of lung cancer COVID Generalized weakness Low back pain Encounter for chemotherapy management Anemia Tachycardia Thrombocytopenia Constipation Cancer Encounter for education Chronic renal failure Hypertension Regional lymph node metastasis present Wears glasses Wears dentures Post-menopausal Depression Anxiety Alcohol use Injury of head and neck Gastric reflux Emphysema, unspecified Smoker Shortness of breath on exertion Chronic cough Leg cramps History of stress test Cardiology follow-up encounter Chest pain Mild depression Vitamin D deficiency History of alcohol abuse Home Medications ?Medication ?Instructions ?Recorded ?Last Taken ?Type lorazepam 0.5 mg tablet 0.5 mg PO DAILY PRN Anxiety 04/07/22 Unknown History metoprolol succinate 25 mg 25 mg PO DAILY #90 tabs 06/29/23 Unknown Rx tablet,extended release 24 hr famotidine 20 mg tablet 20 mg PO QHS 10/26/23 Unknown History magnesium citrate 100 mg capsule 100 mg PO DAILY 11/30/23 Unknown History atorvastatin 20 mg tablet (Lipitor) 20 mg PO QDAY #60 tabs 02/16/24 Unknown Rx prednisone 20 mg tablet 20 mg PO QDAY 04/18/24 Unknown History tramadol 50 mg tablet 50 mg PO QDAY 04/18/24 Unknown History ondansetron 4 mg disintegrating 4 mg PO Q8H PRN PRN Nausea #10 tabs 04/29/24 Unknown Rx tablet Allergy/AdvReac Type Severity Reaction Status Date / Time amoxicillin (From Augmentin) Allergy Intermediate stomach Verified 04/29/24 08:58 pain clavulanic acid (From Allergy Intermediate stomach Verified 04/29/24 08:58 Augmentin) pain duloxetine Allergy Nausea Verified 04/29/24 08:58 Sulfa (Sulfonamide Allergy Nausea Verified 04/29/24 08:58 Antibiotics) tramadol Allergy Nausea Verified 04/29/24 08:58 Family History Father Alcoholism High cholesterol Hypertension Alzheimer disease Mother Alcoholism Anxiety Cancer unknown primary diagnosis High cholesterol Hypertension Grandfather Alcoholism Grandmother Alcoholism Cancer possibly had cancer but not confirmed Sister Breast cancer, Onset Age: 60 High cholesterol Hypertension Aunt Cancer pancreatic Uncle Lung cancer Surgical History History of vascular access device Hx of surgical procedure History of lung biopsy Hx of colonoscopy History of esophagogastroduodenoscopy (EGD) history of left eye surgery Social History household members: significant other 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, 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 Smoking Status: Former smoker Tobacco: How many years used: 50 second hand exposure: Yes alcohol intake: former year quit: 2014 details: quit 7 years ago 2014 substance use type: does not use diet: other caffeine: Yes Type: coffee Number of servings: 3 what type of physical activity do you participate in: walking frequency: 1-2 times per week EXAM Physical Exam Const Vital Signs: 04/29/24 08:57 04/29/24 10:52 Temperature 98.8 F Temperature Source Oral Pulse Rate 98 86 Respiratory Rate 16 16 Blood Pressure 141/109 H 133/74 H Blood Pressure Mean 119 93 Pulse Ox 98 100 Oxygen Delivery Method Room Air MDM MDM MDM Narrative Medical decision making narrative: 68-year-old female with past medical history of HTN, previous lung cancer, and lumbar back pain since January presents for evaluation of back pain and intermittent abdominal pain and nausea. Differential diagnosis includes but is not limited to sciatica, degenerative disc disease, spinal stenosis, pain response, UTI, suspect less likely intra-abdominal process such as diverticulitis, nephrolithiasis, pancreatitis. There has been no trauma. There is no neurologic findings to suggest an acute cauda equina syndrome. At this point I do not feel any emergent imaging MRI is warranted. Morphine, Zofran, NS bolus ordered. Abdominal pain workup ordered. CBC with mild leukocytosis 11.9. Mild hemoconcentration with hemoglobin of 15.3 this can be seen in dehydration. CMP is consistent with dehydration. At baseline patient has renal insufficiency. Mildly worsened from 04/25. Fluids currently running. No transaminitis. Lipase unremarkable. UA negative for UTI. CT abdomen pelvis shows scattered sigmoid diverticula. Otherwise no acute process. At this point in time, I suspect patient's pain is likely secondary to her chronic back pain. On reevaluation, patient states her pain has improved with morphine. She was educated on all her results and the plan for discharge home. Follow-up with pain management as well as orthopedic spine. She confirmed understand the plan. Return precautions explained. Patient stable to discharge home. Patient was given prescription for Zofran as needed for nausea at home. Patient was educated to continue drinking plenty of fluids and hydration over the next several days. Impression: 1. Chronic back pain 2. Episodic abdominal pain 3. Nausea 4. Dehydration Lab Data Labs: Laboratory Results - last 24 hr 04/29/24 04/29/24 08:59 09:30 WBC 11.9 H RBC 5.07 Hgb 15.3 H Hct 45.5 MCV 89.7 MCH 30.2 MCHC 33.6 RDW Std Deviation 44.9 H RDW Coeff of Davida 13.8 Plt Count 272 MPV 8.5 Immature Gran % (Auto) 0.500 Neut % (Auto) 77.1 H Lymph % (Auto) 15.5 L Lassen % (Auto) 6.5 Eos % (Auto) 0.1 Baso % (Auto) 0.3 Absolute Neuts (auto) 9.1 H Absolute Lymphs (auto) 1.84 Nucleated RBC % 0 Sodium 135 L Potassium 3.9 Chloride 102 Carbon Dioxide 24.0 Anion Gap 9 BUN 11 Creatinine 1.25 H Estim Creat Clear Calc 38.10 Est GFR (MDRD) Af Amer 55 L Est GFR (MDRD) Non-Af 46 L BUN/Creatinine Ratio 8.8 L Glucose 132 H Calcium 9.4 Total Bilirubin 1.20 H AST 25 ALT 21 Alkaline Phosphatase 66 Total Protein 8.2 Albumin 4.3 Globulin 3.9 Albumin/Globulin Ratio 1.1 Lipase 38 Urine Color Straw Urine Clarity Clear Urine pH 6.[address] 1.005 Urine Protein Negative Urine Glucose (UA) Normal Urine Ketones Negative Urine Occult Blood 25 H Urine Nitrite Negative Urine Bilirubin Negative Urine Urobilinogen Normal Ur Leukocyte Esterase Negative Urine RBC 0 SEEN Urine WBC 0 SEEN Ur Squamous Epith Cells 0-5 SEEN Urine Bacteria 0 SEEN Urine Mucus 0 SEEN Radiography Diagnostic Testing: Clinical Impression(s) from Imaging Studies Abdomen/Pelvis CT 04/29/24 09:44 IMPRESSION: Scattered sigmoid diverticula. No acute abnormality is seen. Electronically Signed: Manny Alarcon MD at 10:16 EST , Discharge Plan Triage Chief Complaint: Back ED Provider: Blas Chi Dx/Rx/DC Orders Clinical Impression: Back pain, lumbosacral, Abdominal pain in female Instructions: Abdominal Pain, ED Back Pain (Acute or Chronic) Prescriptions: New ondansetron 4 mg tablet,disintegrating 4 mg PO Q8H PRN PRN (Reason: Nausea) Qty: 10 0RF No Action lorazepam 0.5 mg tablet 0.5 mg PO DAILY PRN (Reason: Anxiety) famotidine 20 mg tablet 20 mg PO QHS magnesium citrate 100 mg capsule 100 mg PO DAILY atorvastatin [Lipitor] 20 mg tablet 20 mg PO QDAY Qty: 60 3RF prednisone 20 mg tablet 20 mg PO QDAY Rx Instructions: Once a day for 5 days tramadol 50 mg tablet 50 mg PO QDAY metoprolol succinate 25 mg tablet extended release 24 hr 25 mg PO DAILY Qty: 90 3RF Primary Care Provider: Lynda Alonso Referrals: Lynda Alonso MD [Primary Care Provider] - 3-5 Days Activity Restrictions/Additional Instructions: Follow-up with your primary care physician as well as pain management and orthopedics. Return back to the ED if symptoms change or worsen. Print Language: Albanian Disposition Disposition: Home, Self Care Discharge Date/Time: 04/29/24 10:55
[2024-04-29] MEDS: 0.9% Normal Saline (1000mL) 1,000 ML 999 ML IV (09:30)
[2024-04-29] MEDS: Morphine 2 MG/ML Syringe IV (09:30)
[2024-04-29] MEDS: Ondansetron 4 MG/2 ML Vial IV (09:30)
[2024-04-29 09:31] LABS: Absolute Lymphocyte Count 1.84 X10^3/uL (0.83-4.51); Absolute Neutrophil Count 9.1 X10^3/uL (2.0-7.7); Basophil# 0.04 X10^3/uL; Basophil% 0.3 % (0-1); Eosinophil# 0.01 X10^3/uL; Eosinophils% 0.1 % (0-5); Hematocrit 45.5 % (37-47); Hemoglobin 15.3 g/dL (12.0-15.0); Lymphocyte # 1.84 X10^3/ul (0.83-4.51); Lymphocyte % 15.5 % (19-41); Mean Corp Hgb Conc 33.6 g/dL (32-36); Mean Corpuscular Hgb 30.2 pg (27.0-32.0); Mean Corpuscular Volume 89.7 fL (81-99); Mean Platelet Vol. 8.5 fl (6.2-12.0); Monocyte# 0.77 X10^3/uL; Monocyte% 6.5 % (0-10); NRBC Flagged by Analyzer 0 % (0-5); Neutrophil # 9.13 X10^3/uL (2.7-7.7); Neutrophil % 77.1 % (47-70); Platelet Count 272 K/mm3 (150-450); RBC Distribution Width CV 13.8 % (11.6-14.6); RBC Distribution Width SD 44.9 fl (35.1-43.9); Red Blood Count 5.07 M/mm3 (4.2-5.4); White Blood Count 11.9 K/mm3 (4.4-11.0)
--- NOTE | 2024-04-29 09:44 | CT_ITS ---
STUDY: CT ABDOMEN AND PELVIS WITH CONTRAST REASON FOR EXAM: Female, 68 years old. Abdominal and back pain RADIATION DOSAGE (If Supplied By Facility): CTDIvol = ( 22.42 ) mGy, DLP = ( 411.16 ) mGycm TECHNIQUE: Transaxial images were obtained from the dome of the diaphragm to the symphysis pubis without oral contrast. 100ML ISOVUE 300 was administered. Sagittal and coronal images were reconstructed. Individualized dose optimization techniques were used for this CT. COMPARISON: None. FINDINGS: The visualized lung bases are unremarkable. The visualized portions of the heart are within normal limits. Normal liver. Normal gallbladder and extrahepatic biliary system. Normal spleen. Normal pancreas. There is symmetric enlargement of the adrenal glands suggesting adrenal hyperplasia. Normal right kidney. Normal left kidney. There is a small hiatal hernia. Normal small intestine. There are scattered colonic diverticula consistent with diverticulosis. The appendix is visualized and appears normal. There is diffuse atherosclerotic calcification of the abdominal aorta, without a demonstrated aneurysm. Normal inferior vena cava. Normal retroperitoneum. Normal urinary bladder. Normal abdominal wall. Normal osseous structures. CT/Abdomen/Pelvis W IV Cont ONLY IMPRESSION: Scattered sigmoid diverticula. No acute abnormality is seen. Electronically Signed: Manny Alarcon MD at 10:16 EST ,
[2024-04-29 09:45] LABS: Bacteria 0 SEEN /hpf (None Seen); Mucous, Urine 0 SEEN /hpf (<or=2+); Red Blood Cells-Urine 0 SEEN /hpf (0-5); White Blood Cells 0 SEEN /hpf (0-5)
[2024-04-29 09:49] LABS: ALB/GLOB Ratio 1.1 RATIO (0.9-2.4); AST(SGOT) 25 U/L (15-37); Alanine Aminotransfer ALT/SGPT 21 U/L (13-56); Albumin, Serum 4.3 g/dL (3.2-5.0); Alkaline Phosphatase 66 U/L (45-117); Anion Gap 9 (5-15); BUN 11 mg/dL (7-18); BUN/Creat Ratio 8.8 RATIO (10-20); Calcium,Total 9.4 mg/dL (8.5-10.1); Chloride 102 mmol/L (98-107); Creatinine, Serum 1.25 mg/dL (0.55-1.02); EST Glomerular Filtration Rate 46 mL/min (>60); Est Glom Filt Rate - Afr Amer 55 mL/min (>60); Globulin 3.9 g/dL (2.2-4.2); Glucose 132 mg/dL (74-106); Lipase 38 U/L (13-75); Potassium 3.9 mmol/L (3.5-5.1); Protein, Total 8.2 g/dL (6.4-8.2); Sodium Level 135 mmol/L (136-145)
[2024-04-29 09:53] LABS: Color, Urine Straw (Yellow); Glucose, Dipstick Normal (Normal); Ketone-Dipstick Negative (Negative); Leukocyte Esterase-Dipstick Negative /ul (Negative); Nitrite-Dipstick Negative (Negative); Occult Blood-Urine 25 /ul (Negative); Protein-Dipstick Negative (Negative); Specific Gravity, Urine 1.005 (1.002-1.030); Urine Bilirubin Dipstick Negative (Negative); Urine Clarity Clear (Clear); Urine Urobilinogen Normal (Normal); Urine pH 6.5 (5.0 - 8.0)
[2024-04-29 10:00] LABS: Squamous Epithelial Cells - UA 0-5 SEEN /hpf (5-10)
--- NOTE | 2024-04-29 10:51 | ED.RN ---
patient states she is ready to go and will drink plenty of fluids at home
[2024-04-29 10:52] VITALS: BP 133/74; PULSE 86; RESP 16; O2SAT 100
== END 2024-04-29 10:55 | disposition home or self-care (01) ==
PROVIDERS: Emergency Provider Surgery; PCP Family Medicine; Visit Provider Surgery
DX: M54.9 Dorsalgia, unspecified (principal); R10.9 Unspecified abdominal pain; Z87.891 Personal history of nicotine dependence; E86.0 Dehydration; I12.9 Hypertensive chronic kidney disease with stage 1 through stage 4 chronic kidney disease, or unspecified chronic kidney disease; G89.29 Other chronic pain; N18.9 Chronic kidney disease, unspecified; Z86.16 Personal history of COVID-19; R11.0 Nausea; Z85.118 Personal history of other malignant neoplasm of bronchus and lung

== ENCOUNTER 2024-04-30 07:13 | Emergency (ER) | payer MEDICARE, SELFPAY ==
[2024-04-30 07:13] VITALS: BP 161/94; PULSE 95; RESP 16; TEMP 36.2; O2SAT 100; BMI 25.3
--- NOTE | 2024-04-30 07:28 | EX.ED.DYSGE1 ---
HPI History of Present Illness Chief Complaint: Back Informant: patient Onset/Context/Timing Onset: Month(s) Context: Gradual Onset Timing: Continuous Quality: Dull, deep Location: Low back Worsened by: Nothing Relieved by: Nothing Narrative Narrative: Patient presents with worsening back pain that has been getting worse over the past 2 months. Patient was seen here yesterday for this. Patient had CT scan, lab work, and urinalysis done yesterday. Patient states that her pain is dull and deep. Patient states it is mainly in her low back. Patient states he gets a nauseated feeling and then feels a felix of adrenaline that goes up into her chest and into her head. Patient states this causes her to break out into a sweat and gives her a headache. Patient denies any fevers or chills. Patient admits to some nausea but denies any vomiting. Patient admits to some urinary frequency. Patient denies any chest pain or shortness of breath. Patient states she has been following with pain management for her back pain. [facility] Medical History Local recurrence of lung cancer COVID Generalized weakness Low back pain Encounter for chemotherapy management Anemia Tachycardia Thrombocytopenia Constipation Cancer Encounter for education Chronic renal failure Hypertension Regional lymph node metastasis present Wears glasses Wears dentures Post-menopausal Depression Anxiety Alcohol use Injury of head and neck Gastric reflux Emphysema, unspecified Smoker Shortness of breath on exertion Chronic cough Leg cramps History of stress test Cardiology follow-up encounter Chest pain Mild depression Vitamin D deficiency History of alcohol abuse Home Medications ?Medication ?Instructions ?Recorded ?Last Taken ?Type lorazepam 0.5 mg tablet 0.5 mg PO DAILY PRN Anxiety 04/07/22 Unknown History metoprolol succinate 25 mg 25 mg PO DAILY #90 tabs 06/29/23 Unknown Rx tablet,extended release 24 hr famotidine 20 mg tablet 20 mg PO QHS 10/26/23 Unknown History magnesium citrate 100 mg capsule 100 mg PO DAILY 11/30/23 Unknown History atorvastatin 20 mg tablet (Lipitor) 20 mg PO QDAY #60 tabs 02/16/24 Unknown Rx prednisone 20 mg tablet 20 mg PO QDAY 04/18/24 Unknown History tramadol 50 mg tablet 50 mg PO QDAY 04/18/24 Unknown History ondansetron 4 mg disintegrating 4 mg PO Q8H PRN PRN Nausea #10 tabs 04/29/24 Unknown Rx tablet Allergy/AdvReac Type Severity Reaction Status Date / Time amoxicillin (From Augmentin) Allergy Intermediate stomach Verified 04/29/24 08:58 pain clavulanic acid (From Allergy Intermediate stomach Verified 04/29/24 08:58 Augmentin) pain duloxetine Allergy Nausea Verified 04/29/24 08:58 Sulfa (Sulfonamide Allergy Nausea Verified 04/29/24 08:58 Antibiotics) tramadol Allergy Nausea Verified 04/29/24 08:58 Family History Father Alcoholism High cholesterol Hypertension Alzheimer disease Mother Alcoholism Anxiety Cancer unknown primary diagnosis High cholesterol Hypertension Grandfather Alcoholism Grandmother Alcoholism Cancer possibly had cancer but not confirmed Sister Breast cancer, Onset Age: 60 High cholesterol Hypertension Aunt Cancer pancreatic Uncle Lung cancer Surgical History History of vascular access device Hx of surgical procedure History of lung biopsy Hx of colonoscopy History of esophagogastroduodenoscopy (EGD) history of left eye surgery Social History household members: significant other 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, 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 Smoking Status: Former smoker Tobacco: How many years used: 50 second hand exposure: Yes alcohol intake: former year quit: 2014 details: quit 7 years ago 2014 substance use type: does not use diet: other caffeine: Yes Type: coffee Number of servings: 3 what type of physical activity do you participate in: walking frequency: 1-2 times per week ROS ROS ED Constitutional Constitutional ED: Denies chills or fever(s) Eyes Eyes: Denies blurry vision or change in vision ENT ENT ED: Denies rhinorrhea or sore throat Cardiovascular Cardiovascular: Denies chest pain or palpitations Respiratory/Chest Respiratory/Chest: Denies cough or dyspnea Gastrointestinal Gastrointestinal: Reports nausea; Denies vomiting Genitourinary Genitourinary ED: Reports urinary frequency; Denies dysuria or hematuria Musculoskeletal Musculoskeletal: Reports back pain; Denies neck pain Integumentary Denies abscess or rash Neurologic Neurologic: Reports headache(s); Denies weakness Psychiatric Psychiatric: Reports anxiety Allergic/Immunologic Allergic/Immunologic ED: Denies mouth swelling or urticaria EXAM Physical Exam Const Vital Signs: 04/30/24 07:13 Temperature 97.2 F L Temperature Source Temporal Pulse Rate 95 Respiratory Rate 16 Blood Pressure 161/94 H Blood Pressure Mean 116 Pulse Ox 100 Oxygen Delivery Method Room Air Positive well nourished and well developed General Appearance ED: well developed and NAD HEENT Reports moist mucous membranes Neck supple and no JVD Resp normal respiratory effort and clear to auscultation bilaterally Cardio regular rate and regular rhythm GI non-tender and non-distended Palpation: soft Extremity normal to inspection General Extremety ED: Negative for edema or tenderness General Extremity: Negative for edema Neuro oriented x3, CN's II-XII intact bilaterally and no sensory deficits noted Sensorium / Orientation: alert Motor Exam: strength 5/5 throughout Psych Mood & Affect: anxious MDM MDM MDM Narrative Medical decision making narrative: Differential diagnosis includes electrolyte abnormality, urinary tract infection, anxiety, and musculoskeletal pain. CBC will be obtained to assess for leukocytosis and anemia. Comprehensive metabolic profile will be obtained to assess for hepatic function, renal function, and electrolyte abnormality. Urinalysis will be obtained to assess for urinary tract infection and hematuria. History & Record Review Additional record(s) reviewed:: Prior ED visit and Prior labs Lab Data Attestation: I reviewed the patient's lab results. Lab results narrative: CBC was reviewed. There is a slight leukocytosis of 11.7. The remainder is within normal limits. Comprehensive metabolic profile was reviewed. Creatinine was slightly elevated at 1.21. The remainder is within normal limits. Serum lactate was reviewed and was normal at 1.3. PT with INR and PTT were reviewed and were within normal limits. Urinalysis was reviewed. There is no evidence of urinary tract infection or hematuria. Labs: Laboratory Results - last 24 hr 04/30/24 04/30/24 08:01 08:40 WBC 11.7 H RBC 4.94 Hgb 14.7 Hct 44.6 MCV 90.3 MCH 29.8 MCHC 33.0 RDW Std Deviation 45.6 H RDW Coeff of Davida 13.8 Plt Count 234 MPV 8.4 Immature Gran % (Auto) 0.400 Neut % (Auto) 81.6 H Lymph % (Auto) 11.8 L [place]morton % (Auto) 5.6 Eos % (Auto) 0.2 Baso % (Auto) 0.4 Absolute Neuts (auto) 9.6 H Absolute Lymphs (auto) 1.38 Nucleated RBC % 0 PT 13.0 INR 1.0 APTT 24.1 Sodium 138 Potassium 4.3 Chloride 106 Carbon Dioxide 27.0 Anion Gap 5 BUN 14 Creatinine 1.21 H Estim Creat Clear Calc 39.87 Est GFR (MDRD) Af Amer 57 L Est GFR (MDRD) Non-Af 47 L BUN/Creatinine Ratio 11.6 Glucose 111 H Lactic Acid 1.3 Calcium 9.3 Total Bilirubin 0.90 AST 19 ALT 22 Alkaline Phosphatase 69 Total Protein 7.6 Albumin 4.2 Globulin 3.4 Albumin/Globulin Ratio 1.2 Urine Color Yellow Urine Clarity Clear Urine pH 6.5 Ur Specific Ashley 1.010 Urine Protein Negative Urine Glucose (UA) Normal Urine Ketones Negative Urine Occult Blood 10 H Urine Nitrite Negative Urine Bilirubin Negative Urine Urobilinogen Normal Ur Leukocyte Esterase Negative Urine RBC 0 SEEN Urine WBC 0 SEEN Ur Squamous Epith Cells 0-5 SEEN Urine Bacteria 0 SEEN Urine Mucus 0 SEEN Treatment and Re-Evaluation :: Patient was given IV fluids, morphine, and Zofran. I did review his CT scan from yesterday. This was done with contrast. There is some adrenal enlargement but there were no masses. I also reviewed patient's prior bone scan which did not show any metastatic lesions of the spine. Patient was given a repeat dose of morphine. Patient was advised of her findings. Patient was instructed to follow-up with her primary care physician in 5 to 7 days. Patient was advised she may need more outpatient testing. Patient was also instructed to follow-up with her pain management physician. Patient understands and is agreeable with the plan. All questions were answered. Discharge Plan Triage Chief Complaint: Back ED Provider: Cesar Barbour Dx/Rx/DC Orders Clinical Impression: Low back pain, Hypertension Instructions: ED Back Pain (Acute or Chronic) Prescriptions: No Action lorazepam 0.5 mg tablet 0.5 mg PO DAILY PRN (Reason: Anxiety) famotidine 20 mg tablet 20 mg PO QHS magnesium citrate 100 mg capsule 100 mg PO DAILY atorvastatin [Lipitor] 20 mg tablet 20 mg PO QDAY Qty: 60 3RF prednisone 20 mg tablet 20 mg PO QDAY Rx Instructions: Once a day for 5 days tramadol 50 mg tablet 50 mg PO QDAY ondansetron 4 mg tablet,disintegrating 4 mg PO Q8H PRN PRN (Reason: Nausea) Qty: 10 0RF metoprolol succinate 25 mg tablet extended release 24 hr 25 mg PO DAILY Qty: 90 3RF Primary Care Provider: Lynda Alonso Referrals: Lynda Alonso MD [Primary Care Provider] - 5-7 Days Print Language: Kazakh Disposition Disposition: Home, Self Care
[2024-04-30] MEDS: 0.9% Normal Saline (1000mL) 1,000 ML 1000 ML IV (07:56)
[2024-04-30] MEDS: Morphine 4 MG/ML Syringe IV ×2 (07:57→08:54)
[2024-04-30] MEDS: Ondansetron 4 MG/2 ML Vial IV (07:57)
[2024-04-30 08:22] LABS: Absolute Lymphocyte Count 1.38 X10^3/uL (0.83-4.51); Absolute Neutrophil Count 9.6 X10^3/uL (2.0-7.7); Basophil# 0.05 X10^3/uL; Basophil% 0.4 % (0-1); Eosinophil# 0.02 X10^3/uL; Eosinophils% 0.2 % (0-5); Hematocrit 44.6 % (37-47); Hemoglobin 14.7 g/dL (12.0-15.0); Lymphocyte # 1.38 X10^3/ul (0.83-4.51); Lymphocyte % 11.8 % (19-41); Mean Corpuscular Hgb 29.8 pg (27.0-32.0); Mean Corpuscular Volume 90.3 fL (81-99); Mean Platelet Vol. 8.4 fl (6.2-12.0); Monocyte# 0.65 X10^3/uL; Monocyte% 5.6 % (0-10); NRBC Flagged by Analyzer 0 % (0-5); Neutrophil # 9.55 X10^3/uL (2.7-7.7); Neutrophil % 81.6 % (47-70); Platelet Count 234 K/mm3 (150-450); RBC Distribution Width CV 13.8 % (11.6-14.6); RBC Distribution Width SD 45.6 fl (35.1-43.9); Red Blood Count 4.94 M/mm3 (4.2-5.4); White Blood Count 11.7 K/mm3 (4.4-11.0)
[2024-04-30 08:23] LABS: Partial Thromboplast Time 24.1 Seconds (24.1-36.2)
[2024-04-30 08:24] LABS: ALB/GLOB Ratio 1.2 RATIO (0.9-2.4); AST(SGOT) 19 U/L (15-37); Alanine Aminotransfer ALT/SGPT 22 U/L (13-56); Albumin, Serum 4.2 g/dL (3.2-5.0); Alkaline Phosphatase 69 U/L (45-117); Anion Gap 5 (5-15); BUN 14 mg/dL (7-18); BUN/Creat Ratio 11.6 RATIO (10-20); Calcium,Total 9.3 mg/dL (8.5-10.1); Chloride 106 mmol/L (98-107); Creatinine, Serum 1.21 mg/dL (0.55-1.02); EST Glomerular Filtration Rate 47 mL/min (>60); Est Glom Filt Rate - Afr Amer 57 mL/min (>60); Estimated Creatinine Clearance 39.87 ml/min; Globulin 3.4 g/dL (2.2-4.2); Glucose 111 mg/dL (74-106); Potassium 4.3 mmol/L (3.5-5.1); Protein, Total 7.6 g/dL (6.4-8.2); Sodium Level 138 mmol/L (136-145)
[2024-04-30 08:48] LABS: Bacteria 0 SEEN /hpf (None Seen); Mucous, Urine 0 SEEN /hpf (<or=2+); Red Blood Cells-Urine 0 SEEN /hpf (0-5); White Blood Cells 0 SEEN /hpf (0-5)
[2024-04-30 08:48] LABS: Lactic Acid 1.3 mmol/L (0.4-1.9)
[2024-04-30 08:50] LABS: Color, Urine Yellow (Yellow); Glucose, Dipstick Normal (Normal); Ketone-Dipstick Negative (Negative); Leukocyte Esterase-Dipstick Negative /ul (Negative); Nitrite-Dipstick Negative (Negative); Occult Blood-Urine 10 /ul (Negative); Protein-Dipstick Negative (Negative); Urine Bilirubin Dipstick Negative (Negative); Urine Clarity Clear (Clear); Urine Urobilinogen Normal (Normal); Urine pH 6.5 (5.0 - 8.0)
[2024-04-30 08:56] LABS: Squamous Epithelial Cells - UA 0-5 SEEN /hpf (5-10)
[2024-04-30 10:12] VITALS: BP 165/76; PULSE 64; RESP 18; TEMP 36.9; O2SAT 99
== END 2024-04-30 10:13 | disposition home or self-care (01) ==
PROVIDERS: Emergency Provider Emergency Medicine; PCP Family Medicine; Visit Provider Emergency Medicine
DX: M54.50 Low back pain, unspecified (principal); Z87.891 Personal history of nicotine dependence; I12.9 Hypertensive chronic kidney disease with stage 1 through stage 4 chronic kidney disease, or unspecified chronic kidney disease; R35.0 Frequency of micturition; N18.9 Chronic kidney disease, unspecified; Z86.16 Personal history of COVID-19; F41.9 Anxiety disorder, unspecified

== ENCOUNTER → 2024-05-02 | Outpatient (CLI) | payer MEDICARE, SELFPAY ==
--- NOTE | 2024-05-02 07:29 | MRI_ITS ---
STUDY: MRI LUMBAR SPINE WITHOUT CONTRAST REASON FOR EXAM: Female, 68 years old. BACK PAIN RADIATING INTO BUTTOCKS, HX OF LUNG CANCER TECHNIQUE: Standardized fat and water weighted pulse sequences were obtained in the sagittal and axial planes. COMPARISON: Lumbar spine x-rays April 18, 2024 FINDINGS: T12-L1: Normal endplates. Normal disc height, hydration and morphology. Normal bilateral facet joints. Normal central canal and bilateral lateral recesses. Normal bilateral intervertebral neural foramina. Normal lumbar lordosis. There is levo scoliosis. Normal conus medullaris that terminates at T12-L1 L1-2: Normal endplates. Normal disc height, hydration and morphology. Normal bilateral facet joints. Normal central canal and bilateral lateral recesses. Normal bilateral intervertebral neural foramina. L2-3: Normal endplates. Normal disc height, hydration and morphology. Normal bilateral facet joints. Normal central canal and bilateral lateral recesses. Normal bilateral intervertebral neural foramina. L3-4: Normal endplates. Normal disc height, hydration and morphology. Facet arthropathy and mild thickening of ligamenta flava. Normal central canal and bilateral lateral recesses. Normal bilateral intervertebral neural foramina. L4-5: Normal endplates. Normal disc height, desiccation and minor annular bulge with tiny central annular tear and disc protrusion. Normal bilateral facet joints. Normal central canal and bilateral lateral recesses. Mild bilateral neural foraminal encroachment L5-S1: Grade 1 retrolisthesis Normal endplates. Normal disc height, hydration and minimal bulging disc osteophyte complex.. Mild facet arthropathy. Normal central canal and bilateral lateral recesses. Normal bilateral intervertebral neural foramina. Normal visualized sacral ala. There is reduction in size of the thecal sac in the sacral canal association with fat deposition. Normal visualized paraspinous soft tissue structures. MRI/Spine Lumbar (Routine) IMPRESSION: No evidence for acute fracture or other significant bony pathology. Levoscoliosis and mild degenerative changes Mild bilateral neural foramina narrowing at L4-5 secondary to minor annular bulge with tiny central disc protrusion Other findings as above Electronically Signed: Diomedes Patel MD at 16:59 EST ,
== END | disposition home or self-care (01) ==
LOC: MRI 07:28
PROVIDERS: PCP Family Medicine; Referring Provider Student in an Organized Health Care Education/Training Program; Visit Provider Student in an Organized Health Care Education/Training Program
DX: M54.16 Radiculopathy, lumbar region (principal)
CPT/HCPCS: 72148

== ENCOUNTER → 2024-05-16 | Outpatient (CLI) | payer MEDICARE, SELFPAY ==
--- NOTE | 2024-05-16 13:00 | MRI_ITS ---
PROCEDURE: PELVIS (ROUTINE) REASON FOR EXAM: Bilateral hip pain. History of lung cancer. Severe low back pain, as well. TECHNIQUE: MRI of the pelvis without contrast, with attention to osseous structures. COMPARISON: None. FINDINGS: Limited imaging of the lumbar spine shows the presence of degenerative disc disease, with disc narrowing greatest at L4-L5. Also, a mild disc bulge is seen at L4-L5. No spinal canal stenosis is seen in visualized areas. Sacroiliac joints appear symmetric and within the normal range. No evidence of femoral head osteonecrosis. No acute osseous signal changes are seen. No joint effusion is evident. Mild degenerative changes are seen of the hip joints. Within the pelvis, no free fluid is seen. No adenopathy is noted in visualized areas. MRI/Pelvis (Routine) IMPRESSION: 1. Limited imaging of the lumbar spine shows degenerative disc disease, greates t at L4-L5. 2. Mild bilateral hip joint degenerative changes are seen. 3. No acute osseous change is evident. Reading Location: [id number]
== END | disposition home or self-care (01) ==
LOC: MRI 12:38
PROVIDERS: PCP Family Medicine; Referring Provider Anesthesiology; Visit Provider Anesthesiology
DX: M25.551 Pain in right hip (principal); M25.552 Pain in left hip
CPT/HCPCS: 72195

== ENCOUNTER → 2024-05-21 | Outpatient (CLI) | payer MEDICARE, SELFPAY ==
[2024-05-21 11:18] LABS: ALB/GLOB Ratio 0.9 RATIO (0.9-2.4); AST(SGOT) 15 U/L (15-37); Alanine Aminotransfer ALT/SGPT 22 U/L (13-56); Albumin, Serum 3.8 g/dL (3.2-5.0); Alkaline Phosphatase 83 U/L (45-117); Anion Gap 8 (5-15); BUN 19 mg/dL (7-18); BUN/Creat Ratio 20.6 RATIO (10-20); Calcium,Total 9.6 mg/dL (8.5-10.1); Chloride 102 mmol/L (98-107); Creatinine, Serum 0.92 mg/dL (0.55-1.02); EST Glomerular Filtration Rate 65 mL/min (>60); Est Glom Filt Rate - Afr Amer 78 mL/min (>60); Globulin 4.1 g/dL (2.2-4.2); Glucose 109 mg/dL (74-106); Potassium 4.6 mmol/L (3.5-5.1); Protein, Total 7.9 g/dL (6.4-8.2); Sodium Level 134 mmol/L (136-145)
== END | disposition home or self-care (01) ==
LOC: MTLAB 08:23
PROVIDERS: PCP Family Medicine; Referring Provider Internal Medicine Cardiovascular Disease; Visit Provider Internal Medicine Cardiovascular Disease
DX: I10 Essential (primary) hypertension (principal); M54.17 Radiculopathy, lumbosacral region
CPT/HCPCS: 36415; 80053; 84443

== ENCOUNTER → 2024-06-18 | Outpatient (CLI) | payer MEDICARE, SELFPAY ==
--- NOTE | 2024-06-18 07:49 | CT_ITS ---
PROCEDURE: CT CHEST AND ABD W/ CONTRAST REASON FOR EXAM: History of small cell lung carcinoma. Completion of chemotherapy. TECHNIQUE: Chest and abdomen CT with intravenous contrast. No oral contrast. CONTRAST: 100 cc of Isovue 370. COMPARISON: Comparison is made with prior CT scan of the chest dated March 04, [address] scan of the abdomen and pelvis dated April 29, 2024. FINDINGS: CT CHEST: Hardware: None. Lymph nodes: No mediastinal, hilar, or axillary lymphadenopathy. Heart and Vasculature: Normal heart size. No pericardial effusion. Thoracic aorta and pulmonary arteries are unremarkable. Lungs and Airways: Stable emphysematous changes and post radiation scarring in the right lung apex with residual nodular density measuring 4.7 mm. There is a new 5.5 mm nodule in the anterior aspect of the right upper lobe as seen on axial image number 49. This was not seen on prior study. Pleura: Stable mild right pleural thickening. Heterogeneous appearance of the thoracic vertebrae especially in the lower segment. Bony metastasis should be ruled out. CT ABDOMEN: Liver: Unremarkable. Gallbladder: Unremarkable. Spleen: Unremarkable. Pancreas: Unremarkable. Adrenals: Stable symmetric enlargement of the adrenal glands suggestive of adrenal hyperplasia. Kidneys: Unremarkable. Bowel: Sigmoid diverticulosis without evidence of acute sigmoid diverticulitis. Lymph nodes: No suspicious lymph node enlargement at the upper abdomen. Vasculature: Mild diffuse atherosclerotic calcifications are noted. Peritoneum / Retroperitoneum: No ascites or free air at the upper abdomen. Bones: Heterogeneous appearance of the lumbar vertebrae. CT/CT Chest AND Abd W/ Contrast IMPRESSION: Stable examination except for a new 4.7 mm nodule in the anterior aspect of the right upper lobe. Heterogeneous appearance of the thoracic and lumbar vertebrae as described. Co rrelation with bone scan recommended. Stable hyperplasia of the adrenal glands. One or more dose reduction techniques were used (e.g., Automated exposure contr ol, adjustment of the mA and/or kV according to patient size, use of iterative reconstruction technique). Reading Location: [id number]
== END | disposition home or self-care (01) ==
LOC: CT 07:49
PROVIDERS: PCP Family Medicine; Referring Provider Internal Medicine Hematology & Oncology; Visit Provider Internal Medicine Hematology & Oncology
DX: C34.11 Malignant neoplasm of upper lobe, right bronchus or lung (principal); C77.9 Secondary and unspecified malignant neoplasm of lymph node, unspecified; J44.9 Chronic obstructive pulmonary disease, unspecified
CPT/HCPCS: 71260; 74160; 94060; 94726; 94729; Q9967

== ENCOUNTER → 2024-06-21 | Outpatient (CLI) | payer MEDICARE, SELFPAY ==
--- NOTE | 2024-06-21 07:26 | MRI_ITS ---
EXAM: MRI brain with and without contrast. CLINICAL HISTORY: eval for brain metastases COMPARISON: 12/04/2023 TECHNIQUE: Multisequence multiplanar MRI brain was performed with and without intravenous contrast. Contrast: 12 mL Clariscan. FINDINGS: Cerebrum: Moderate supratentorial white matter abnormalities, nonspecific but similar to prior and compatible with chronic microvascular ischemic changes. Mild cerebral volume loss. 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 No acute infarct, appreciable intracranial hemorrhage, mass, or mass effect. Midline structures unremarkable. Cerebellum: Unremarkable. Brainstem: Unremarkable. Ventricles/extra-axial spaces: Unremarkable. No hydrocephalus.. Major flow voids: Unremarkable.. Paranasal sinuses: Unremarkable. Scalp/calvarium: Unremarkable. Orbits: Grossly unremarkable within limits of technique. Other: No abnormal enhancement. Degenerative changes within the upper cervical spine at C1-C2. MRI/Brain W/WO Contrast IMPRESSION: 1. No findings to suggest intracranial metastatic disease. 2. Additional description as above. Reading Location: [id number]
== END | disposition home or self-care (01) ==
PROVIDERS: PCP Family Medicine; Referring Provider Student in an Organized Health Care Education/Training Program; Visit Provider Student in an Organized Health Care Education/Training Program
DX: C34.11 Malignant neoplasm of upper lobe, right bronchus or lung (principal)
CPT/HCPCS: 70553; A9575

== ENCOUNTER → 2024-06-24 | Outpatient (CLI) | payer MEDICARE, SELFPAY ==
[2024-06-24 12:38] VITALS: PULSE 100; PULSE 101; PULSE 87; PULSE 88; PULSE 90; O2SAT 95; O2SAT 96; O2SAT 97; O2SAT 98; O2SAT 99
--- NOTE | 2024-06-28 12:06 | WT_ITS ---
PSN 6 Minute Walk Test 6 Minute Walk Test 6 Minute Walk Test: 6 Minute Walk Test PSN:6-Minute Walk Test Start: 06/24/24 12:37 Freq: Status: Active Protocol: [id number].[id number] Document 06/24/24 12:38 [facility] (Rec: 06/24/24 12:43 [facility] [id number]) 6 Minute Walk Test Date Performed 06/24/24 Time Performed 12:30 Height 5 ft 4 in Weight: 130 lb Weight in Pounds 130.[address]: Gaye López [employer] Assistive device None used: Pre-test Oxygen Delivery Room Air Method Pulse Ox (%) 98 Pulse Rate (60-100 87 beats/min) Dyspnea Larissa Scale ( 0 0-10) 1st minute Oxygen Delivery Room Air Method Pulse Ox (%) 96 Pulse Rate (60-100 90 beats/min) Dyspnea Larissa Scale ( 0 0-10) Number of Rests 0 Taken 2nd minute Oxygen Delivery Room Air Method Pulse Ox (%) 95 Pulse Rate (60-100 88 beats/min) Dyspnea Larissa Scale ( 0 0-10) Number of Rests 0 Taken 3rd minute Oxygen Delivery Room Air Method Pulse Ox (%) 98 Pulse Rate (60-100 90 beats/min) Dyspnea Larissa Scale ( 0 0-10) Number of Rests 0 Taken 4th minute Oxygen Delivery Room Air Method Pulse Ox (%) 97 Pulse Rate (60-100 100 beats/min) Dyspnea Larissa Scale ( 1 0-10) Number of Rests 0 Taken 5th minute Oxygen Delivery Room Air Method Pulse Ox (%) 97 Pulse Rate (60-100 101 H beats/min) Dyspnea Larissa Scale ( 1 0-10) Number of Rests 0 Taken 6th minute Oxygen Delivery Room Air Method Pulse Ox (%) 99 Pulse Rate (60-100 100 beats/min) Dyspnea Larissa Scale ( 1 0-10) Number of Rests 0 Taken Post-test Oxygen Delivery Room Air Method Pulse Ox (%) 99 Pulse Rate (60-100 90 beats/min) Dyspnea Larissa Scale ( 0 0-10) Full Laps Walked 17 Partial Lap, Number 24 of Tiles Walked Total Distance 1027 Walked (ft) Interpretation Interpretation: The patient ambulated 1027 feet over the course of 6 minutes beginning on room air without assistive devices. Pretesting oxygen saturation was noted to be 98% on room air. With ambulation, the joycelyn oxygen saturation was 95%. There was no significant exertional oxygen desaturation noted. Recommendations Recommendations: There is no indication for the use of supplemental oxygen at this time.
== END | disposition home or self-care (01) ==
LOC: PSN 12:22
PROVIDERS: PCP Family Medicine; Referring Provider Nurse Practitioner Acute Care; Visit Provider Nurse Practitioner Acute Care
DX: J44.9 Chronic obstructive pulmonary disease, unspecified (principal)
CPT/HCPCS: 94618

== ENCOUNTER → 2024-08-26 | Outpatient (CLI) | payer MEDICARE, SELFPAY ==
--- NOTE | 2024-08-26 07:53 | CT_ITS ---
PROCEDURE: CT CHEST AND ABD W/ CONTRAST 08/26/2024 REASON FOR EXAM: LUNG NODULES IV CONTRAST TECHNIQUE: Chest and abdomen CT with intravenous contrast. Coronal and Sagittal reconstruction series were provided. One or more dose reduction techniques were used (e.g., Automated exposure control, adjustment of the mA and/or kV according to patient size, use of iterative reconstruction technique. PATIENT PREPARATION: Per protocol ORAL CONTRAST TYPE: None. CONTRAST: Isovue-300 VOLUME: 100mL RADIATION DOSE SUMMARY: CTDlvol: 10 mGy DLP: 497.58 mGycm COMPARISON: Comparison is made with prior study dated June 18, 2024. FINDINGS: CT CHEST: Hardware: None Lymph nodes: No significant lymphadenopathy is seen. Heart and Vasculature: Normal heart size. No pericardial effusion. Lungs and Airways: Stable emphysematous changes and post radiation scarring in the right lung apex with residual nodular density measuring 4.7 mm. Interval increase in size of the previously seen nodular density in the anterior aspect of the right upper lobe as seen on axial image number 43 it presently measures 10.4 mm. A 2nd nodular density is seen along the inferior medial aspect of the previously mentioned nodular density. This measures 1.1 cm. Pleura: Unremarkable CT ABDOMEN: Liver: Normal size. No mass. Gallbladder: Unremarkable Spleen: Normal size. Pancreas: Normal size without evidence of mass surrounding inflammation or ductal dilation. Adrenals: Stable symmetrical enlargement of the adrenal glands suggestive of adrenal hyperplasia. Kidneys: Normal renal sizes. No hydronephrosis. Bowel: Sigmoid diverticulosis. Lymph nodes: No retroperitoneal lymph nodes. Vasculature: Mild diffuse atherosclerotic calcifications are noted. Peritoneum / Retroperitoneum: Bones: Degenerative changes of the spine. CT/CT Chest AND Abd W/ Contrast IMPRESSION: Interval increase in size of the previously seen nodule in the anterior aspect of the right upper lobe as described. There is a new 1 cm nodule adjacent to this nodule in the medial aspect of the right upper lobe. The remainder of the examination is unchanged. Reading Location: [id number]
== END | disposition home or self-care (01) ==
LOC: CT 07:49
PROVIDERS: PCP Family Medicine; Referring Provider Internal Medicine Hematology & Oncology; Visit Provider Internal Medicine Hematology & Oncology
DX: R91.1 Solitary pulmonary nodule (principal)
CPT/HCPCS: 71260; 74160; Q9967

== ENCOUNTER 2024-09-03 07:37 | Outpatient (CLI) | payer MEDICARE, SELFPAY ==
[2024-09-03] VITALS (16 sets, daily range): BP systolic 107–145; BP diastolic 63–79; PULSE 69–88; RESP 13–16; O2SAT 92–100; BMI 24.4
--- NOTE | 2024-09-03 07:52 | CT_ITS ---
PROCEDURE: BIOPSY/INJ OR NEEDLE PLACEMENT 09/03/2024 REASON FOR EXAM: LUNG NODULE TECHNIQUE: . CT-guided lung biopsy. The procedure as well as the benefits and possible complications including infection, bleeding and pneumothorax were explained to the patient. Informed consent was obtained. The patient was in the supine position. Conscious sedation was performed. The patient received 3 mg of Versed and 50 mcg of fentanyl intravenously. Conscious sedation was started at 8:27 a.m. and terminated at 9:12 a.m.. The patient was independently monitored by the department nurse. The tiny nodule in the anterior right upper lobe was localized under CT. The overlying skin was prepped and draped in the usual sterile fashion. Following local anesthetic application, a 20 gauge core biopsy needle was placed into the nodule. 4 core biopsies were obtained. The patient tolerated the procedure well. One or more dose reduction techniques were used (e.g., Automated exposure control, adjustment of the mA and/or kV according to patient size, use of iterative reconstruction technique). RADIATION DOSE SUMMARY: CTDlvol: 15 mGy DLP: 247.57 mGycm COMPARISON: Prior CT scan of the chest dated August 26, 2024. FINDINGS: Successful CT-guided biopsy of the nodule in the anterior right upper lobe. CT/Biopsy/Inj or Needle Placement IMPRESSION: Successful CT-guided core biopsy of the right upper lobe pulmonary nodule as de scribed. The patient tolerated the procedure well. No immediate complication noted. Reading Location: [place] [id number]
[2024-09-03 08:24] LABS: International Normalized Ratio 0.9
[2024-09-03 08:25] LABS: Partial Thromboplast Time 24.4 Seconds (24.1-36.2)
[2024-09-03 08:45] LABS: Absolute Lymphocyte Count 1.91 X10^3/uL (0.83-4.51); Basophil# 0.09 X10^3/uL; Basophil% 0.9 % (0-1); Eosinophil# 0.12 X10^3/uL; Eosinophils% 1.2 % (0-5); Hematocrit 48.7 % (37-47); Hemoglobin 15.7 g/dL (12.0-15.0); Lymphocyte # 1.91 X10^3/ul (0.83-4.51); Lymphocyte % 18.6 % (19-41); Mean Corp Hgb Conc 32.2 g/dL (32-36); Mean Corpuscular Hgb 30.5 pg (27.0-32.0); Mean Corpuscular Volume 94.7 fL (81-99); Mean Platelet Vol. 8.4 fl (6.2-12.0); Monocyte# 1.04 X10^3/uL; Monocyte% 10.1 % (0-10); NRBC Flagged by Analyzer 0 % (0-5); Neutrophil # 7.04 X10^3/uL (2.7-7.7); Neutrophil % 68.5 % (47-70); Platelet Count 283 K/mm3 (150-450); RBC Distribution Width SD 45.4 fl (35.1-43.9); Red Blood Count 5.14 M/mm3 (4.2-5.4); White Blood Count 10.3 K/mm3 (4.4-11.0)
[2024-09-03] MEDS: Midazolam 2 MG/2 ML Syringe IV ×3 (08:53→09:06)
[2024-09-03] MEDS: fentaNYL 100 MCG/2 ML Ampul IV (08:54)
[2024-09-03] MEDS: Lidocaine 2% (20 ml mdv) 20 ML Vial INFILT (09:08)
--- NOTE | 2024-09-03 09:10 | ASPIGT_PTH ---
PATIENT: ASIF HERNANDEZ LOC: CT U#:[id number] AGE/SX: 69/F ROOM: RE09/03/[address]: Dr. Chadwick Munson MD : 1955 BED: DIS: 09/03/2024 SPEC #: [id number] RECD: 09/03/24 09:30 STATUS: RODRIGO RENico #: [id number] ANNA: 09/03/24 09:[address]: Chadwick Munson DEPT: SURGICAL PATHOLOGY RECD BY: Wesley Lomeli ENTERED: 09/03/24 09:53 SP TYPE: ASP RAD OTHR DR: Lynda Alonso MD Tissues: A - Lung, NOS Procedures: FNA Specimen Adequacy Immunohistochemical Stains Special Stain Group II Surgery Specimen Level IV Imprint (control) IHC Stain ADDITIONAL HEADER OPERATION: CT guided lung biopsy PRE-OP DIAGNOSIS: Lung nodule - right upper lobe TISSUE SUBMITTED: A- Right lung, 20 gauge x 4 cores MICROSCOPIC DIAGNOSIS A. 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 * Note: IHCs were performed: * Positive - Pancytokeratin, CK7 (dot-like), Synaptophysin, and Chromogranin, with Ki67 proliferative index of 100% (as determined by quantitative manual immunohistochemistry). * Negative - CK20, CK5/6, p40, TTF-1, Napsin. * The previous diagnoses of small cell lung carcinoma are noted ([id number], [id number]). The TTF-1 was tested and also negative in the [id number] specimen. COMMENT The specimen is evaluated at the time of biopsy by Dr. Carrasco. Immediate Evaluation = Right upper lobe - Adequate. Suspicious for malignancy. MICROSCOPIC DESCRIPTION Slides are reviewed. All matched controls reacted appropriately. These tests were developed and their performance characteristics determined by [facility]. They may not have been cleared or approved by the U.[place]. Food and Drug Administration. The FDA has determined that such clearance or approval is not necessary.? The above immunohistochemical/dualISH?markers are ordered and reviewed by the Pathologist. GROSS DESCRIPTION A. Received in formalin in a container labeled with the patient's name, date of , and with the accompanying paperwork indicating, CT-guided lung biopsy are multiple white-pink, wispy core biopsies of soft tissue measuring approximately 1.3 x 0.5 x 0.2 cm in aggregate. Submitted in toto in A1. B 09-03-2024 CPT:41132,31224,69896,32450v9 ADDENDUM ADDENDUM ADDENDUM ADDENDUM ADDENDUM ADDENDUM ADDENDUM ADDENDUM ADDENDUM ADDENDUM ADDENDUM ADDENDUM ADDENDUM ADDENDUM 03/10/2025 12:07 ADDENDUM 03/10/2025 12:07 ADDENDUM 03/10/2025 12:07 ADDENDUM 03/10/2025 12:07 ADDENDUM 03/10/2025 12:07 This addendum is added to incorporate an outside pathology consultation report. The case was examined at [facility] by Dr. Ernst (#[id number]) and the following diagnosis was rendered. A. Lung, right upper lobe, nodule, CT- guided biopsy: Small cell carcinoma. Note: The neoplastic cells are positive for pancytokeratin, chromogranin, synaptophysin, CK7, and negative for CK7, CK20, TTF-1, Napsin A, p40, CK5/6. Ki67 proliferation index is 95-98% by manual quantification. All the stains were performed at the outside institution. Please see complete above mentioned consultation report in EMR
--- NOTE | 2024-09-03 09:20 | RAD_ITS ---
EXAM: Chest inspiration expiration views following the right lung biopsy. CLINICAL HISTORY: Status post right lung biopsy. COMPARISON: Prior study dated November 27, 2023. TECHNIQUE: Inspiration expiration views were obtained. There is no evidence of pneumothorax. Persistent nodular density in the right upper lobe with increased markings in the surrounding lung suggestive of post biopsy hematoma. FINDINGS: No evidence of pneumothorax following the right lung biopsy. RAD/Chest Insp/Exp 2 View IMPRESSION: No evidence of pneumothorax following the right lung biopsy. Reading Location: [place] [id number]
--- NOTE | 2024-09-03 11:10 | RAD_ITS ---
EXAM: Chest AP inspiration expiration. CLINICAL HISTORY: 2 hour post right lung biopsy radiographs. COMPARISON: Prior study done earlier in the day. TECHNIQUE: AP inspiration expiration views. FINDINGS: No evidence of pneumothorax on the 2 hour post right lung biopsy radiographs. RAD/Chest Insp/Exp 2 View IMPRESSION: No evidence of pneumothorax on the 2 hour post right lung biopsy radiographs. Reading Location: [id number]
== END 2024-09-03 23:59 | disposition home or self-care (01) ==
PROVIDERS: Radiology Diagnostic Radiology; PCP Family Medicine; Referring Provider Internal Medicine Hematology & Oncology; Visit Provider Internal Medicine Hematology & Oncology
DX: C34.31 Malignant neoplasm of lower lobe, right bronchus or lung (principal)
CPT/HCPCS: 32408; 36415; 71046; 77012; 85025; 85610; 85730; 88172; 88305; 88313; 88341; 88342; 99156; A4216

== ENCOUNTER → 2024-09-11 | Outpatient (CLI) | payer MEDICARE, SELFPAY ==
[2024-09-11 15:29] LABS: Absolute Lymphocyte Count 1.72 X10^3/uL (0.83-4.51); Absolute Neutrophil Count 6.2 X10^3/uL (2.0-7.7); Basophil# 0.06 X10^3/uL; Basophil% 0.7 % (0-1); Eosinophil# 0.08 X10^3/uL; Eosinophils% 0.9 % (0-5); Hematocrit 44.2 % (37-47); Hemoglobin 14.6 g/dL (12.0-15.0); Lymphocyte # 1.72 X10^3/ul (0.83-4.51); Lymphocyte % 19.5 % (19-41); Mean Corpuscular Hgb 30.5 pg (27.0-32.0); Mean Corpuscular Volume 92.5 fL (81-99); Mean Platelet Vol. 9.3 fl (6.2-12.0); Monocyte# 0.76 X10^3/uL; Monocyte% 8.6 % (0-10); NRBC Flagged by Analyzer 0 % (0-5); Neutrophil # 6.18 X10^3/uL (2.7-7.7); Platelet Count 244 K/mm3 (150-450); RBC Distribution Width CV 12.7 % (11.6-14.6); RBC Distribution Width SD 43.7 fl (35.1-43.9); Red Blood Count 4.78 M/mm3 (4.2-5.4); White Blood Count 8.8 K/mm3 (4.4-11.0)
[2024-09-11 16:48] LABS: ALB/GLOB Ratio 1.4 RATIO (0.9-2.4); AST(SGOT) 30 U/L (<=31); Alanine Aminotransfer ALT/SGPT 18 U/L (<=34); Albumin, Serum 4.3 g/dL (3.4-4.8); Alkaline Phosphatase 107 U/L (35-104); Anion Gap 12 (5-15); BUN 14 mg/dL (4-19); BUN/Creat Ratio 14.7 RATIO (10-20); Calcium,Total 9.3 mg/dL (7.6-11.0); Chloride 99 mmol/L (98-108); Creatinine, Serum 0.97 mg/dL (0.70-1.20); EST Glomerular Filtration Rate 64 (>60); Globulin 3.2 g/dL (2.2-4.2); Glucose 149 mg/dL (70-99); Magnesium 2.2 mg/dL (1.5-2.2); Protein, Total 7.4 g/dL (5.9-8.4); Sodium Level 136 mmol/L (133-145); Vitamin D,25 Hydroxy 27.4 ng/mL (30-100)
== END | disposition home or self-care (01) ==
LOC: MTLAB 12:57
PROVIDERS: PCP Family Medicine; Referring Provider Family Medicine; Visit Provider Family Medicine
DX: I10 Essential (primary) hypertension (principal); E55.9 Vitamin D deficiency, unspecified
CPT/HCPCS: 36415; 80053; 82306; 83735; 84443; 85025

== ENCOUNTER 2024-10-02 07:09 | Day surgery (SDC) | payer MEDICARE, SELFPAY ==
--- NOTE | 2024-09-30 14:23 | PAT.ANESEVAL ---
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 When Was Last Pacemaker Check QUESTION #4 FULL TEXT: You/Your Family Experience fever (hyperthermia) with Anesthesia Last Oral Intake Last Oral intake: Last Oral Intake NPO since Meds taken in AM with sips of water? Meds patient instructed to take am of surgery PONV PONV - precision farming specialist: PONV - precision farming specialist Female Yes 09/30/24 13:29 HX of Motion Sickness No 09/30/24 13:29 HX of N/V After Surgery No 09/30/24 13:29 Non-Smoker No 09/30/24 13:29 Duration of Surgery greater No 09/30/24 13:29 than 60 minutes Number of Risk Factors 1 09/30/24 13:29 PONV Score Low Risk 09/30/24 13:29 Height & Weight Height & Weight: Anesthesia: Height & Weight Height 5 ft 5 in 09/27/24 09:09 Respiratory Assessment Respiratory Assessment - precision farming specialist: Respiratory Tract Infection Hx - precision farming specialist Hx Respiratory Tract Infection No 09/30/24 13:29 STOP Sleep Apnea STOP Sleep Apnea - precision farming specialist: STOP Sleep Apnea - precision farming specialist Hx Hypertension No 09/30/24 13:29 Hx Sleep Apnea No 09/30/24 13:29 CPAP No 04/12/22 08:32 BIPAP Do you snore loudly (louder No 09/30/24 13:29 than talking or can be heard Do you often feel tired/ No 09/30/24 13:29 fatigued/ sleepy during daytime? Has anyone observed you stop No 09/30/24 13:29 breathing during sleep? STOP Results Negative 09/30/24 13:29 QUESTION #5 FULL TEXT : Do you snore loudly (louder than talking or can be heard through closed doors)? 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 Specify any problems Hx of Preganancy in last 3 No 09/30/24 13:29 Months Nurse Filling Out Transfusion DSCHRIBER 09/30/24 13:29 & Questions: Date: 09/30/24 09/30/24 13:29 Time: 13:30 09/30/24 13:29 Patient unable to answer at this time (ie. confused, unrespo /Reproduction History /Reproductive History - precision farming specialist: /Reproductive Hx- precision farming specialist Hx Now No 09/30/24 13:29 Gestational Age (in weeks): EDC: Hx Hx Para Hx Section SAB No 09/30/24 13:29 PFSH Medical History (Updated 09/30/24 @ 13:40 by Jenny Fatima) Loss of hearing History of steroid therapy Arthritis Easy bruising Back pain History of ulceration Shortness of breath on exertion History of irregular heartbeat History of echocardiogram Metastasis to lung Vitiligo Local recurrence of lung cancer Generalized weakness Low back pain Encounter for chemotherapy management Anemia Tachycardia Thrombocytopenia Constipation Cancer Encounter for education Chronic renal failure Regional lymph node metastasis present Wears glasses Wears dentures Post-menopausal Depression Anxiety Alcohol use Gastric reflux Smoker Cardiology follow-up encounter Vitamin D deficiency Home Medications ?Medication ?Instructions ?Recorded ?Last Taken ?Type famotidine 20 mg tablet 20 mg PO QHS 10/26/23 Unknown History magnesium citrate 100 mg capsule 100 mg PO DAILY 11/30/23 Unknown History atorvastatin 20 mg tablet (Lipitor) 20 mg PO QDAY #60 tabs 02/16/24 Unknown Rx Held on 09/03/24. Instructions: MD Ordered ondansetron 4 mg disintegrating 4 mg PO Q8H PRN PRN Nausea #10 tabs 04/29/24 Unknown Rx tablet metoprolol succinate 50 mg 50 mg PO QDAY #90 tabs 05/21/24 Unknown Rx tablet,extended release 24 hr baclofen 5 mg tablet 5 mg PO 3XD PRN muscle spasm 08/29/24 Unknown History oxycodone 5 mg capsule 5 mg PO TID 09/03/24 Unknown History pregabalin 75 mg capsule 75 mg PO BID 09/30/24 Unknown History Allergy/AdvReac Type Severity Reaction Status Date / Time amoxicillin (From Augmentin) Allergy Intermediate stomach Verified 09/30/24 13:25 pain clavulanic acid (From Allergy Intermediate stomach Verified 09/30/24 13:25 Augmentin) pain Sulfa (Sulfonamide Allergy Nausea Verified 09/30/24 13:25 Antibiotics) Family History Father Alcoholism High cholesterol Hypertension Alzheimer disease Mother Alcoholism Anxiety Cancer unknown primary diagnosis High cholesterol Hypertension Grandfather Alcoholism Grandmother Alcoholism Cancer possibly had cancer but not confirmed Sister Breast cancer, Onset Age: 60 High cholesterol Hypertension Aunt Cancer pancreatic Uncle Lung cancer Surgical History (Updated 09/30/24 @ 13:40 by Jenny Fatima) History of vascular access device Hx of surgical procedure History of lung biopsy Hx of colonoscopy History of esophagogastroduodenoscopy (EGD) history of left eye surgery Social History household members: significant other 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 Sinus tachycardia (115 bpm) with occasional PVCs. Echo (EF%) pertinent findings: July 24, 2023. EF of 65%. PASP is 33 mmHg. No aortic stenosis is noted. Consult pertinent findings: February 16, 2024. Dr. Guerrero. 1. Tachycardia?acute-resolved. Echo shows normal LV function. Recommendation Anesthesia Recommendation Anesthesia recommendation: OPTIMIZED for anesthesia
[2024-10-02] VITALS (10 sets, daily range): BP systolic 84–122; BP diastolic 57–81; PULSE 72–80; RESP 14–18; TEMP 36.6–36.8; O2SAT 92–100; BMI 24.5
--- OUTSIDE RECORDS SUMMARY | 2024-10-02 07:25 | XMS RPT_ITS | CCD ---
Author Organization [facility] Care Team Providers Care Engagement Executive Name Role Phone Jihan BORE MILL OPERATOR, BORE MILL OPERATOR-C Lara K Primary Care Provider Unavailable Jihan BORE MILL OPERATOR, BORE MILL OPERATOR-C Lara K Referring Provider Un available Dr. Jarred Jones Attending Provider Dr. Jarred Jones Other Provider Dr. Jarred Jones Referring Provider Dr. Corey Damian Attending Provider Jihan BELTRAN, BORE MILL OPERATOR-C Lara K Primary Care Provider Unavailable Jihan BELTRAN, BORE MILL OPERATOR-C Lara K Referring Provider Un available Dr. Jarred Jones Attending Provider Dr. Jarred Jones Other Provider Dr. Jarred Jones Referring Provider Dr. Corey Damian Attending Provider Dr. Chadwick Munson Attending Provider Santo BELTRAN, BORE MILL OPERATOR-C Shavonne Attending Provider Dr. Sugar Ramírez Attending Provider Dr. Sugar Ramírez Other Provider Dr. Aly Gupta Attending Provider Dr. Aly Gupta Referring Provider Jihan BELTRAN, BORE MILL OPERATOR-C Lara K Primary Care Provider Unavailable Jihan BORE MILL OPERATOR, BORE MILL OPERATOR-C Lara K Referring Provider Un available Dr. Jarred Jones Attending Provider [phone] Chase [place] Attending Provider Santo BORE MILL OPERATOR, BORE MILL OPERATOR-C Shavonne Referring Provider Michener BORE MILL OPERATOR, BORE MILL OPERATOR-C Lara K Primary Care Provider Unavailable Michener BORE MILL OPERATOR, BORE MILL OPERATOR-C Lara K Referring Provider Un available Santo BORE MILL OPERATOR, BORE MILL OPERATOR-C Shavonne Attending Provider Dr. Chadwick Munson Attending Provider Dr. Aly Gupta Attending Provider [phone] López BORE MILL OPERATOR, BORE MILL OPERATOR-C Gaye Attending Provider Michener BORE MILL OPERATOR, BORE MILL OPERATOR-C Lara K Primary Care Provider Unavailable Michener BORE MILL OPERATOR, BORE MILL OPERATOR-C Lara K Referring Provider Un available Dr. Chadwick Munson Attending Provider Dr. Aly Gupta Attending Provider Monica Salcido [facility] Attending Provider [phone] Dr. Gabriele Guerrero Attending Provider Roof BORE MILL OPERATOR, BORE MILL OPERATOR-C Jaleel Whipple Attending Provider Michener BORE MILL OPERATOR, BORE MILL OPERATOR-C Lara K Primary Care Provider Unavailable Michener BORE MILL OPERATOR, BORE MILL OPERATOR-C Lara K Referring Provider Un available Dr. Gabriele Guerrero Referring Provider Dr. Chadwick Munson Attending Provider [phone] López BORE MILL OPERATOR, BORE MILL OPERATOR-C Gaye Referring Provider [phone] López BORE MILL OPERATOR, BORE MILL OPERATOR-C Gaye Other Provider Dr. Corey Damian Attending Provider Michener BORE MILL OPERATOR, BORE MILL OPERATOR-C Lara K Primary Care Provider Unavailable Michener BORE MILL OPERATOR, BORE MILL OPERATOR-C Lara K Referring Provider Un available Dr. lAy Gupta Attending Provider Michener BORE MILL OPERATOR, BORE MILL OPERATOR-C Lara K Primary Care Provider Unavailable López BORE MILL OPERATOR, BORE MILL OPERATOR-C Gaye Referring Provider [phone] López BORE MILL OPERATOR, BORE MILL OPERATOR-C Gaye Other Provider Dr. Corey Damian Attending Provider Dr. Aly Gupta Attending Provider Joaquínener BORE MILL OPERATOR, BORE MILL OPERATOR-C Lara K Referring Provider Un available Dr. Chadwick Munson Attending Provider Dr. Jarred Jones Attending Provider GueroDO Marce ellis M Primary Care Provider Dr. Aly Gupta Attending Provider GueroDO rhonda Marce M Primary Care Provider Jihan BORE MILL OPERATOR, BORE MILL OPERATOR-C Lara Perez Referring Provider Un available Dr. Sugar Ramírez Attending Provider Santo BORE MILL OPERATOR, BORE MILL OPERATOR-C Shavonne Attending Provider GueroDO Thony ellisistin M Referring Provider Monica Salcido Attending Provider Unavailabl e Dr. Gabriele Guerrero Attending Provider GueroDO Marce ellis M Primary Care Provider DO Marce Jack M Primary Care Provider Dr. Aly Gupta Attending Provider Lynda Alonso MD Primary Care Provider Dr. Gabriele Guerrero MD Attending Provider Dr. Gabriele Guerrero MD Referring Provider Dr. Chadwick Munson MD Other Provider Dr. Gabriele Guerrero MD Other Provider [phone] Lorena Garner Attending Provider Dr. Chadwick Munson MD Attending Provider Dr. Chadwick Munson MD Referring Provider Lynda Alonso MD Referring Provider Jihan BELTRAN-CLara Primary Care Provider Un available Lynda Alonso MD Attending Provider Camilla Chen Attending Provider Leanne MCGARRY, Dr. Whipple Attending Provider Dr. Sarabjit Perdomo MD Referring Provider Mariella BORE MILL OPERATOR-C, Trish Attending Provider Mariella BORE MILL OPERATOR-C, Trish Referring Provider Provider, Ed Physician Attending Provider Fernando luciano Provider, Ed Physician Emergency Provider Fernando luciano [facility] , Dr. Odonnell Attending Provider [facility] DO, Dr. Odonnell [facility] Dr. Guerrero Attending Provider Angle DO, Dr. Guerrero Emergency Provider Camilla Chen Referring Provider Roberto MCGARRY, Dr. Hurt Attending Provider Candy VELA, Dr. Lu Attending Provider Candy DO, Dr. Lu Referring Provider Rene BORE MILL OPERATOR-C, Gaye Attending Provider Rene BORE MILL OPERATOR-C, Gaye Referring Provider Rene BORE MILL OPERATOR-C, Gaye Other Provider [phone] Rickie VELA, Dr. Nicole Attending Provider Celeste MCGARRY, Lynda Primary Care Provider [phone] Gabriele Guerrero MD Attending Provider Dr. Gabriele Guerrero MD Referring Provider Lynda Alonso MD Primary Care Provider Lynda Alonso MD Attending Provider Lynda Alonso MD Referring Provider Dr. Chadwick Munson MD Attending Provider Dr. Chadwick Munson MD Referring Provider Lynda Alonso MD Primary Care Provider Camilla Chen Attending Provider Lynda Alonso MD Referring Provider Dr. Sarabjit Perdomo MD Attending Provider Leanne MCGARRY, Dr. Whipple Referring Provider Yolanda MCGARRY, Dr. Suazo Attending Provider Celeste MCGARRY, Chalon Primary Care Provider Celeste MCGARRY, Chalon Primary Care Provider Celeste MCGARRY, Chalon Referring Provider Celeste MCGARRY, Chalon Attending Provider Celeste MCGARRY, Chalon Primary Care Provider Celeste MCGARRY, Chalon Primary Care Provider Celeste MCGARRY, Chalon Referring Provider Jihan BORE MILL OPERATOR-C, Lara Perez Primary Care Provider Un available Darrell MCGARRY, Dr. Wooten Attending Provider Santo BORE MILL OPERATOR-C, Shavonne Attending Provider Celeste, Chalon Primary Care Unavailable Yolanda, Newry Attending Unavailable Isckarus, Mansour Consulting Unavailable Yolanda, [place]ry Referring Unavailable López BORE MILL OPERATOR, Gaye Referring Unavailable López BORE MILL OPERATOR, Gaye Attending Unavailable Celeste, Chalon Primary Care Unavailable Celeste, Chalon Primary Care Unavailable Elida Raphael Attending Unavailable Isckarus, Mansour Referring Unavailable Isckarus, Mansour Consulting Unavailable Celeste, Chalon Primary Care Unavailable Isckarus, Mansour Attending Unavailable Isckarus, Mansour Referring Unavailable Celeste, Chalon Primary Care Unavailable Candy, Aly Referring Unavailable Candy, Aly Attending Unavailable Celeste, Chalon Primary Care Unavailable López BORE MILL OPERATOR, Gaye Attending Unavailable Jihan BORE MILL OPERATOR, Lara K Referring Unavailabl e Celeste, Chalon Primary Care Unavailable Candy, Aly Referring Unavailable Candy, Aly Attending Unavailable Candy, Aly Referring Unavailable Celeste, Chalon Primary Care Unavailable Candy, Aly Attending Unavailable Celeste, Chalon Primary Care Unavailable Yolanda, Gabriele Attending Unavailable Isckarus, Mansour Consulting Unavailable Yolanda, Gabriele Referring Unavailable Yolanda, Gabriele Consulting Unavailable Celeste, Chalon Primary Care Unavailable Isckarus, Mansour Referring Unavailable Isckarus, Mansour Attending Unavailable Celeste, Chalon Primary Care Unavailable Maryanne, Camilla Attending Unavailable Maryanne, Camilla Referring Unavailable Isckarus, Mansour Attending Unavailable Celeste, Chalon Primary Care Unavailable Isckarus, Mansour Referring Unavailable Celeste, Chalon Primary Care Unavailable Candy, Aly Referring Unavailable Candy, Aly Attending Unavailable Celeste, Chalon Primary Care Unavailable Candy, Aly Attending Unavailable Candy, Aly Referring Unavailable Isckarus, Mansour Attending Unavailable Celeste, Chalon Primary Care Unavailable Isckarus, Mansour Referring Unavailable Isckarus, Mansour Attending Unavailable Celeste, Chalon Primary Care Unavailable Isckarus, Mansour Referring Unavailable Celeste, Chalon Primary Care Unavailable Maryanne, Camilla Attending Unavailable Celeste, Chalon Referring Unavailable Celeste, Chalon Primary Care Unavailable Yolanda, Newry Attending Unavailable Celeste, Chalon Primary Care Unavailable Candy, Aly Attending Unavailable Celeste, Chalon Referring Unavailable Isckarus, Mansour Attending Unavailable Isckarus, Mansour Referring Unavailable Jihan BORE MILL OPERATOR, Lara Perez Primary Care Unavailabl e Celeste, Chalon Primary Care Unavailable Candy, Aly Referring Unavailable Candy, Aly Attending Unavailable Celeste, Chalon Primary Care Unavailable Kiran BORE MILL OPERATOR, Lorena Attending Unavailable Celeste, Chalon Primary Care Unavailable Cesar Mcadams Attending Unavailable Celeste, Chalon Referring Unavailable Celeste, Chalon Primary Care Unavailable Celeste, Chalon Attending Unavailable Celeste, Chalon Referring Unavailable Celeste, Chalon Primary Care Unavailable Candy, Aly Referring Unavailable Candy, Aly Attending Unavailable Celeste, Chalon Primary Care Unavailable Isckarus, Mansour Attending Unavailable Isckarus, Mansour Referring Unavailable Celeste, Chalon Primary Care Unavailable Robotham, Sugar Referring Unavailable Robotham, Sugar Attending Unavailable Celeste, Chalon Primary Care Unavailable Yolanda, [place]ry Attending Unavailable Yolanda, [place] Referring Unavailable Isckarus, Mansour Attending Unavailable Celeste, Chalon Primary Care Unavailable Celeste, Chalon Referring Unavailable Isckarus, Mansour Attending Unavailable Celeste, Chalon Primary Care Unavailable Celeste, Chalon Referring Unavailable Celeste, Chalon Primary Care Unavailable Robotham, Sugar Attending Unavailable Isckarus, Mansour Referring Unavailable Celeste, Chalon Primary Care Unavailable Provider, Ed Physician Attending Unavailab le Celeste, Chalon Primary Care Unavailable Sarabjit Perdomo Attending Unavailable TeresaonSarabjit Referring Unavailable Celeste, Chalon Primary Care Unavailable MariellaHarmanin Attending Unavailable Mariella, Trish Referring Unavailable Celeste, Chalon Primary Care Unavailable Celeste, Chalon Attending Unavailable Celeste, Chalon Referring Unavailable Celeste, Chalon Primary Care Unavailable Prayson, Sarabjit Referring Unavailable Prayson, Sarabjit Attending Unavailable Celeste, Chalon Primary Care Unavailable Blas Chi Attending Unavailabl e Celeste, Chalon Primary Care Unavailable Cesar Barbour Attending Unavailable Hanshaw, Elida A Referring Unavailable Hanshaw, Elida A Attending Unavailable Celeste, Chalon Primary Care Unavailable Celeste, Chalon Attending Unavailable Celeste, Chalon Primary Care Unavailable Celeste, Chalon Referring Unavailable Celeste, Chalon Primary Care Unavailable Celeste, Chalon Attending Unavailable Celeste, Chalon Referring Unavailable Celeste, Chalon Primary Care Unavailable Shavonne Blanchard Attending Unavailable Celeste, Chalon Referring Unavailable Celeste, Chalon Primary Care Unavailable Hanshaw, Elida A Referring Unavailable Hanshaw, Elida A Attending Unavailable Celeste, Chalon Referring Unavailable Celeste, Chalon Attending Unavailable Celeste, Chalon Primary Care Unavailable Isckarus, Michealour Attending Unavailable Celeste, Chalon Primary Care Unavailable Isckarus, Mansour Referring Unavailable Celeste, Chalon Primary Care Unavailable Candy, Aly Referring Unavailable Candy, Aly Attending Unavailable Celeste, Chalon Primary Care Unavailable Rene BORE MILL OPERATOR, Gaye Referring Unavailable López BORE MILL OPERATOR, Gaye Consulting Unavailable Corey Damian Attending Unavailable Candy, Aly Referring Unavailable Celeste, Chalon Primary Care Unavailable Candy Aly Attending Unavailable Celeste, Chalon Primary Care Unavailable Candy, Aly Attending Unavailable Celeste, Chalon Primary Care Unavailable Candy, Aly Attending Unavailable Celeste, Chalon Primary Care Unavailable Candy, Aly Referring Unavailable Candy, Aly Attending Unavailable Celeste, Chalon Primary Care Unavailable Candy, Aly Attending Unavailable Celeste, Chalon Primary Care Unavailable Blu Mejia Attending Unavailable Celeste, Chalon Referring Unavailable Celeste, Chalon Primary Care Unavailable Camilla Madden Attending Unavailable Celeste, Chalon Referring Unavailable Celeste, Chalon Primary Care Unavailable Isckarus, Mansour Attending Unavailable Celeste, Chalon Referring Unavailable Celeste, Chalon Primary Care Unavailable Isckarus, Mansour Attending Unavailable Celeste, Chalon Referring Unavailable Isckarus, Mansour Attending Unavailable Celeste, Chalon Referring Unavailable Celeste, Chalon Primary Care Unavailable Celeste, Chalon Primary Care Unavailable Isckarus, Michealour Attending Unavailable Celeste, Chalon Referring Unavailable Celeste, Chalon Primary Care Unavailable CandyAly Attending Unavailable Celeste, Chalon Referring Unavailable Celeste, Chalon Referring Unavailable Celeste, Chalon Primary Care Unavailable Gabriele Guerrero Attending Unavailable Celeste, Chalon Primary Care Unavailable Aly Gupta Attending Unavailable Celeste, Chalon Primary Care Unavailable Isckarus, Michealour Attending Unavailable Celeste, Chalon Referring Unavailable Celeste, Chalon Primary Care Unavailable López BORE MILL OPERATOR, Gaye Attending Unavailable Celeste, Chalon Referring Unavailable Isckarus, Mansour Attending Unavailable Celeste, Chalon Primary Care Unavailable Celeste, Chalon Referring Unavailable Celeste, Chalon Primary Care Unavailable Celeste, Chalon Attending Unavailable Celeste, Chalon Referring Unavailable López BORE MILL OPERATOR, Gaye Referring Unavailable López BORE MILL OPERATOR, Gaye Attending Unavailable Celeste, Chalon Primary Care Unavailable Allergies Allergy Classification Reported Allergen(s) Allergy Type Date of Onset Reaction(s) Facility (20 sources) Amoxicillin Drug Allergy 2 stomach pain [facility] (20 sources) Clavulanate Drug Allergy 2 stomach pain [facility] (3 sources) Iron Drug Allergy 3 Itching [facility] (13 sources) Sulfonamides (Antibiotic) Allergy to substance 5 Nausea [facility] (1 source) Amoxicillin Drug Allergy 5 [facility] (1 source) Clavulanate Drug Allergy 5 [facility] (1 source) DULoxetine Drug Allergy 5 [facility] (1 source) Sulfonamides (Antibiotic) Drug allergy (disorder) 5 [facility] (1 source) traMADol Drug Allergy 5 [facility] Medications Current Medications Medication Drug Class(es) Dates Sig (Normalized) Sig (Original) famotidine 20 mg oral tablet (15 sources) Histamine-2 Receptor Antagonist Start: 10-26-2023 take 1 tablet by mouth at bedtime Famotidine 20 mg tablet Active 20 mg PO AT BEDTIME October 26, 2023 12:00am Start: 11-29-2022 take 1 tablet by miguel angel th once daily before mealtime Famotidine (Pepcid Ac) 10 mg tablet Active 10 MG PO DAILY March 15, 2022 12:00am Lidocaine / Prilocaine (20 sources) Antiarrhythmic, Amide Local Anesthetic Start: 09-30-2024 Lidocaine-Prilocaine 2.5-2.5 % cream Active 1 NMA TOPICAL ONCE as needed for port access September 30, 2024 12:00am Start: 03-02-2022 End: 05-11-2023 Lidocaine-Prilocaine 2.5-2.5 % cream Discontinued 1 NMA TOPICAL ONCE as needed for port access March 02, 2022 1:00am May 11, 2023 10:03am Start: 03-02-2022 End: 05-11-2023 Lidocaine-Prilocaine Discont inued 1 APPLIC TOPICAL ONCE March 02, 2022 1:00am May 11, 2023 10:03am magnesium citrate 100 mg oral tablet (13 sources) Start: 11-30-2023 take 1 capsule by mouth once daily Magnesium Citrate 100 mg capsule Active 100 mg PO DAILY November 30, 2023 12:00am ondansetron 8 mg disintegrating oral tablet (20 sources) Serotonin-3 Receptor Antagonist Start: 09-30-2024 take 1 tablet by mouth every eight hours as needed for nausea and vomiting Ondansetron 8 mg tablet,disintegra ting Active 8 mg PO Q8H as needed for nausea and vomiting September 30, 2024 12:00am Start: 04-29-2024 End: 09-30-2024 take 1 tablet by mouth every eight hours as needed for nausea Ondansetron 4 mg tablet,disintegrating Discontinued 4 mg PO EVERY 8 HOURS NEEDED as needed for Nausea April 29, 2024 1:00am September 30, 2024 3:59pm Start: 03-02-2022 End: 05-11-2023 take 1 tablet by mouth every eight hours as needed for nausea and vomiting Ondansetron 8 mg tablet,disintegrating Discontinued 8 mg PO Q8H as needed for nausea and vomiting March 02, 2022 1:00am May 11, 2023 11:14am oxyCODONE hydrochloride 5 mg oral capsule (20 sources) Opioid Agonist Start: 09-03-2024 take 1 capsule by mouth three times daily Oxycodone 5 mg capsule Active 5 mg PO THREE TIMES A DAY September 03, 2024 12:00am Start: 09-03-2024 take 1 capsule by mo uth twice daily Oxycodone 5 mg capsule Active 5 mg PO TWICE A DAY September 03, 2024 12:00am Start: 06-20-2024 End: 06-21-2024 take 1-2 tablets by mouth once as needed for pain Oxycodone 5 mg tablet Discontinued 5 mg PO ONCE as needed for pain 2 June 20, 2024 June 20, 2024 1:00am June 21, 2024 1:16am take 1-2 tabs for pain, prior to MRI Start: 05-03-2022 End: 05-17-2022 take 5-10 mL by mouth every four hours as needed for pain Oxycodone 5 mg/5 mL solution Discontinued 5 mg PO Q4H as needed for pain 250 14 May 03, 2022 May 16, 2022 1:00am May 17, 2022 1:05am take 5-10 mL q4 hrs prn pain pregabalin 75 mg oral capsule (9 sources) Start: 09-30-2024 take 1 capsule by mouth twice daily Pregabalin 75 mg capsule Active 75 mg PO TWICE A DAY September 30, 2024 12:00am Start: 08-29-2024 End: 09-30-2024 take 1 capsule by mouth twice daily Pregabalin (Lyrica) 100 mg capsule Discontinued 100 mg PO TWICE A DAY August 29, 2024 12:00am September 30, 2024 1:27pm Completed/Discontinued Medications Medication Drug Class(es) Dates Sig (Normalized) Sig (Original) acetaminophen 325 mg / HYDROcodone bitartrate 5 mg oral tablet (13 sources) Opioid Agonist Start: 05-09-2024 End: 06-20-2024 Hydrocodone-Acetam inophen 5-325 mg tablet Discontinued {tbl} PO as needed May 09, 2024 1:00am June 20, 2024 11:26am acetaminophen 325 mg / oxyCODONE hydrochloride 5 mg oral tablet (8 sources) Opioid Agonist Start: 08-29-2024 End: 09-24-2024 Oxycodone-Acetamin ophen (Percocet) 5-325 mg tablet Discontinued 1 {tbl} PO TWICE A DAY as needed for pain August 29, 2024 12:00am September 24, 2024 2:36pm On Hold: Ordered amitriptyline hydrochloride 25 mg oral tablet (20 sources) Tricyclic Antidepressant Start: 09-11-2024 End: 09-24-2024 Amitriptyline 25 mg tablet Discontinued 12.5 mg PO daily September 11, 2024 12:00am September 24, 2024 2:36pm Start: 05-11-2023 End: 06-15-2023 take 6 mg by mouth once daily Amitriptyline 10 mg tabl et Discontinued 6 mg PO DAILY May 11, 2023 1:00am June 15, 2023 12:30pm Start: 05-11-2023 End: 06-15-2023 take 6 mg by mouth once daily Amitriptyline Discontinu ed 6 MG PO DAILY May 11, 2023 1:00am June 15, 2023 12:30pm Start: 11-21-2017 End: 10-28-2022 take 1 tablet by mouth at bedtime Amitriptyline 25 mg tablet Discontinued 25 mg PO AT BEDTIME November 21, 2017 12:00am October 28, 2022 9:07am atorvastatin 20 mg oral tablet (13 sources) HMG-CoA Reductase Inhibitor Start: 02-16-2024 End: 09-30-2024 take 1 tablet by mouth once daily Atorvastatin (Lipitor) 20 mg tablet Discontinued 20 mg PO daily February 16, 2024 12:00am September 30, 2024 3:07pm On Hold: Ordered baclofen 5 mg oral tablet (20 sources) gamma-Aminobutyr ic Acid-ergic Agonist Start: 05-09-2024 End: 09-30-2024 take 1 tablet by mouth three times daily as needed for muscle spasms Baclofen 5 mg tablet Discontinued 5 mg PO 3 times daily as needed for muscle spasm August 29, 2024 12:06pm September 30, 2024 3:07pm 24 hr dilTIAZem hydrochloride 120 mg extended release oral capsule (20 sources) Calcium Channel Carol Start: 06-23-2023 End: 06-29-2023 take 1 capsule by mouth once daily Diltiazem Hcl 120 mg capsule,extended release 24hr Discontinued 120 mg PO DAILY June 23, 2023 1:00am June 29, 2023 2:08pm Start: 06-16-2023 End: 06-23-2023 take 1 capsule by mouth once daily Diltiazem Hcl 180 mg capsule,extended release 24hr Discontinued 180 mg PO DAILY 90 June 16, 2023 1:00am June 23, 2023 12:05pm gabapentin 300 mg oral capsule (13 sources) Anti-epileptic Agent Start: 05-21-2024 End: 08-29-2024 take 1 capsule by mouth every six hours Gabapentin 300 mg capsule Discontinued 300 mg PO EVERY 6 HOURS May 21, 2024 1:00am August 29, 2024 12:06pm LORazepam 0.5 mg oral tablet (20 sources) Benzodiazepine Start: 04-07-2022 End: 08-29-2024 take 1 tablet by mouth once daily as needed for anxiety Lorazepam 0.5 mg tablet Discontinued 0.5 mg PO DAILY as needed for Anxiety April 07, 2022 1:00am August 29, 2024 12:06pm losartan potassium 50 mg oral tablet (20 sources) Angiotensin 2 Receptor Carol Start: 11-21-2017 End: 10-28-2022 take 1 tablet by mouth once daily Losartan 50 mg tablet Discontinued 50 mg PO daily November 21, 2017 12:00am October 28, 2022 9:07am On Hold: Order Changed Magic Mouth Wash (Bmx) (17 sources) Start: 03-15-2022 End: 05-16-2022 Magic Mouth Wash (Bmx) Discontinued 15 ML PO .qid 180 March 15, 2022 1:00am May 16, 2022 1:00pm diphenhydramine 12.5 mg/5 mL oral liquid 60 mL; aluminum-mag hydroxide-simethicon e 400 mg-400 mg-40 mg/5 mL oral susp 60 mL; Lidocaine Viscous 2 % mucosal solution 60 mL; Per 180 mL Start: 03-15-2022 End: 05-16-2022 Magic Mouth Wash (Bmx) Disco ntinued 15 ML PO .qid 180 March 15, 2022 12:00am May 16, 2022 12:00pm diphenhydramine 12.5 mg/5 mL oral liquid 60 mL; aluminum-mag hydroxide-simethicone 400 mg-400 mg-40 mg/5 mL oral susp 60 mL; Lidocaine Viscous 2 % mucosal solution 60 mL; Per 180 mL Start: 03-15-2022 Magic Mouth Wa sh (Bmx) Active 15 ML PO .qid 180 March 15, 2022 12:00am diphenhydramine 12.5 mg/5 mL oral liquid 60 mL; aluminum-mag hydroxide-simethicone 400 mg-400 mg-40 mg/5 mL oral susp 60 mL; Lidocaine Viscous 2 % mucosal solution 60 mL; Per 180 mL Magic Mouth Wash (Bmx) 180 mL suspension (13 sources) Start: 03-15-2022 End: 05-16-2022 Magic Mouth Wash (Bmx) 180 mL suspension Discontinued 15 mL PO .qid as needed for pain 180 March 15, 2022 1:00am May 16, 2022 1:00pm diphenhydramine 12.5 mg/5 mL oral liquid 60 mL; aluminum-mag hydroxide-simethicone 400 mg-400 mg-40 mg/5 mL oral susp 60 mL; Lidocaine Viscous 2 % mucosal solution 60 mL; Per 180 mL metoclopramide 10 mg oral tablet (20 sources) Dopamine-2 Receptor Antagonist Start: 01-31-2022 End: 03-02-2022 take 1 tablet by mouth four times daily as needed for headache Metoclopramide Hcl 10 mg tablet Discontinued 10 mg PO 4 TIMES DAILY as needed for Headache/ stomach February 02, 2022 10:26am March 02, 2022 12:32pm 24 hr metoprolol succinate 50 mg extended release oral tablet (20 sources) beta-Adrenergic Carol Start: 05-21-2024 End: 05-21-2024 take 1 tablet by mouth once daily Metoprolol Succinate 50 mg tablet extended release 24 hr Discontinued 50 mg PO DAILY May 21, 2024 2:09pm May 21, 2024 2:11pm Start: 05-07-2024 End: 05-21-2024 Metoprolol Succinate 25 mg t ablet extended release 24 hr Discontinued 50 mg PO DAILY May 07, 2024 3:03pm May 21, 2024 2:10pm Start: 06-29-2023 End: 05-07-2024 take 1 tablet by mouth once daily Metoprolol Succinate 25 mg tablet extended release 24 hr Discontinued 25 mg PO DAILY June 29, 2023 12:00am May 07, 2024 3:03pm Start: 06-15-2023 End: 06-16-2023 take 1 tablet by mouth once daily Metoprolol Succinate (Toprol Xl) 25 mg tablet extended release 24 hr Discontinued 25 mg PO DAILY June 15, 2023 12:31pm June 16, 2023 12:40pm Start: 05-04-2023 End: 06-15-2023 take 2 tablets by mouth once daily Metoprolol Succinate (Toprol Xl) 25 mg tablet extended release 24 hr Discontinued 12.5 mg PO DAILY May 04, 2023 1:08pm June 15, 2023 12:31pm Start: 10-28-2022 End: 05-04-2023 take 1 tablet by mouth once daily Metoprolol Succinate (Toprol Xl) 25 mg tablet extended release 24 hr Discontinued 25 mg PO DAILY April 02, 2023 10:19am May 04, 2023 1:08pm Start: 09-27-2022 End: 10-28-2022 Metoprolol Tartrate 25 mg ta blet Discontinued 12.5 mg PO TWICE A DAY September 27, 2022 12:00am October 28, 2022 9:07am Start: 09-27-2022 End: 10-28-2022 take 12.5 mg by mouth twice daily Metoprolol Tartrate Discontinued 12.5 MG PO TWICE A DAY September 27, 2022 12:00am October 28, 2022 9:07am omeprazole 40 mg delayed release oral capsule (20 sources) Proton Pump Inhibitor Start: 03-02-2022 End: 03-03-2022 take 1 capsule by mouth once daily Omeprazole 40 mg capsule,delayed release(DR/EC) Discontinued 40 mg PO DAILY March 02, 2022 1:00am March 03, 2022 2:52pm Start: 05-21-2018 End: 02-02-2022 take 1 capsule by mouth once daily Omeprazole 20 MG capsule Discontinued 20 mg PO DAILY May 21, 2018 1:00am February 02, 2022 10:25am pantoprazole 40 mg delayed release oral tablet (20 sources) Proton Pump Inhibitor Start: 06-27-2022 End: 02-15-2023 Pantoprazole 40 mg tablet,delayed release (DR/EC) Discontinued 0 .ROUTE .COMPLEX June 27, 2022 7:15am February 15, 2023 7:50am TAKE 1 TABLET DAILY Start: 03-03-2022 End: 06-27-2022 take 1 tablet by mouth twice daily, then take 1 tablet by mouth once daily Pantoprazole 40 mg tablet,delayed release (DR/EC) Discontinued 40 mg PO DAILY 37 March 03, 2022 1:00am June 27, 2022 7:16am Take 1 tablet twice daily x1 week then changed to 1 tablet daily. All refills will just be 1 tablet daily. predniSONE 20 mg oral tablet (13 sources) Start: 04-18-2024 End: 05-09-2024 take 1 tablet by mouth once daily Prednisone 20 mg tablet Discontinued 20 mg PO daily April 18, 2024 1:00am May 09, 2024 11:00am Once a day for 5 days prochlorperazine 10 mg oral tablet (20 sources) Phenothiazine Start: 03-02-2022 End: 06-16-2023 take 1 tablet by mouth every six hours as needed for nausea and vomiting Prochlorperazine Maleate 10 mg tablet Discontinued 10 mg PO EVERY 6 HOURS as needed for nausea and vomiting March 02, 2022 1:00am June 16, 2023 12:21pm RABEprazole sodium 20 mg delayed release oral tablet (20 sources) Proton Pump Inhibitor Start: 02-03-2022 End: 03-02-2022 take 1 tablet by mouth once daily Rabeprazole 20 mg tablet,delayed release (DR/EC) Discontinued 20 mg PO DAILY February 03, 2022 12:00am March 02, 2022 12:32pm sennosides, chcf 8.6 mg oral tablet (20 sources) Start: 11-21-2017 End: 06-16-2023 take 1 tablet by mouth twice daily as needed for constipation Sennosides (Senna Concentrate) 8.6 mg tablet Discontinued 8.6 mg PO TWICE A DAY as needed for Constipation November 21, 2017 12:00am June 16, 2023 12:21pm sucralfate 1000 mg oral tablet (20 sources) Aluminum Complex Start: 02-02-2022 End: 03-02-2022 take 1 tablet by mouth before mealtime as needed for gastroesophageal reflux disease Sucralfate (Carafate) 1 gram tablet Discontinued 1 g PO before meals as needed for heartburn February 02, 2022 12:00am March 02, 2022 12:32pm traMADol hydrochloride 50 mg oral tablet (13 sources) Opioid Agonist Start: 04-18-2024 End: 05-09-2024 take 1 tablet by mouth once daily Tramadol 50 mg tablet Discontinued 50 mg PO daily April 18, 2024 1:00am May 09, 2024 11:00am Problems Active Problems Problem Classification Problem Date Documented Da te Episodic/Chronic Abdominal pain (13 sources) Abdominal pain; Translations: [Unspecified abdominal pain] 05-07-2024 Episodic Acute and unspecified renal failure (20 sources) Prerenal azotemia; Translations: [Unspecified kidney failure] 05-03-2022 Chronic Administrative/social admission (20 sources) Patient encounter status; Translations: [Counseling, unspecified] Episodic Cancer of bronchus; lung (20 sources) Small cell carcinoma of lung; Translations: [Malignant neoplasm of upper lobe, right bronchus or lung] Onset: Chronic Chronic kidney disease (20 sources) Chronic renal failure; Translations: [Chronic kidney disease, unspecified] 02-28-2022 Chronic Chronic obstructive pulmonary disease and bronchiectasis (20 sources) Chronic obstructive lung disease; Translations: [Chronic obstructive pulmonary disease, unspecified] Onset: 5 02-28-2022 Chronic Coagulation and hemorrhagic disorders (20 sources) Thrombocytopenic disorder; Translations: [Thrombocytopenia, unspecified] Chronic Congestive heart failure; nonhypertensive (20 sources) Chronic diastolic heart failure; Translations: [Chronic diastolic (congestive) heart failure] 02-15-2023 Chronic Deficiency and other anemia (20 sources) Anemia; Translations: [Anemia, unspecified] 05-10-2022 Episodic Comment on above: 2021 WITH FIRST ROUN D OF CHEMO Deficiency and other anemia (7 sources) Anemia, unspecified; Translations: [Anemia, unspecified] 05-10-2022 Episodic Disorders of lipid metabolism (2 sources) Hyperlipidemia, unspecified; Translations: [Hyperlipidemia, unspecified] Onset: Chronic Esophageal disorders (20 sources) Gastroesophageal reflux disease; Translations: [Gastro-esophageal reflux disease without esophagitis] Chronic Comment on above: CONTROLLED WITH MED Esophageal disorders (20 sources) Radiation esophagitis; Translations: [Radiation-induced esophagitis] 05-03-2022 Episodic Essential hypertension (20 sources) Hypertensive disorder; Translations: [Essential (primary) hypertension] Onset: 5 03-03-2022 Chronic Comment on above: CONTROLLED ON MED Fluid and electrolyte disorders (20 sources) Dehydration; Translations: [Dehydration] 04-07-2022 Episodic Lymphadenitis (12 sources) Mediastinal lymphadenopathy; Translations: [Localized enlarged lymph nodes] Episodic Maintenance chemotherapy; radiotherapy (20 sources) Patient encounter status; Translations: [Encounter for antineoplastic chemotherapy] 05-24-2022 Chronic Malaise and fatigue (20 sources) Asthenia; Translations: [Weakness] 06-15-2022 Episodic Nonspecific chest pain (20 sources) Chest pain; Translations: [Chest pain, unspecified] 02-08-2022 Episodic Other acquired deformities (17 sources) Scoliosis deformity of spine; Translations: [Scoliosis, unspecified] 04-18-2024 Chronic Other aftercare (20 sources) Encounter for adjustment and management of vascular access device; Translations: [Fitting and adjustment, other device] Episodic Other bone disease and musculoskeletal deformities (20 sources) Segmental and somatic dysfunction; Translations: [Segmental and somatic dysfunction of cervical region] 11-29-2017 Episodic Other bone disease and musculoskeletal deformities (20 sources) Clavicle pain; Translations: [Other specified disorders of bone, shoulder] 11-21-2017 Episodic Other connective tissue disease (1 source) Other symptoms and signs involving the musculoskeletal system; Translations: [Other symptoms and signs involving the musculoskeletal system] Onset: Episodic Other gastrointestinal disorders (20 sources) Constipation; Translations: [Constipation, unspecified] 03-29-2022 Episodic Other gastrointestinal disorders (4 sources) Constipation, unspecified; Translations: [Constipation, unspecified] Episodic Other lower respiratory disease (20 sources) Dyspnea; Translations: [Dyspnea, unspecified] 02-02-2022 Episodic Other lower respiratory disease (4 sources) Lung mass; Translations: [Other nonspecific abnormal finding of lung field] Episodic Other lower respiratory disease (10 sources) Dyspnea, unspecified; Translations: [Other respiratory abnormalities] Episodic Other lower respiratory disease (13 sources) Nodule of lung; Translations: [Solitary pulmonary nodule] 11-22-2023 Episodic Other lower respiratory disease (2 sources) Solitary pulmonary nodule; Translations: [Solitary pulmonary nodule] Onset: 5 Episodic Other skin disorders (5 sources) Vitiligo; Translations: [Vitiligo] 09-11-2024 Episodic Other upper respiratory infections (1 source) Chronic sinusitis, unspecified; Translations: [Chronic sinusitis, unspecified] Onset: 5 Chronic Peripheral and visceral atherosclerosis (1 source) Peripheral vascular disease, unspecified; Translations: [Peripheral vascular disease, unspecified] Onset: 4 Chronic Secondary malignancies (20 sources) Regional lymph node metastasis present ; Translations: [Secondary and unspecified malignant neoplasm of lymph node, unspecified] 02-28-2022 Chronic Secondary malignancies (20 sources) Secondary and unspecified malignant neoplasm of lymph node, unspecified; Translations: [Secondary and unspecified malignant neoplasm of lymph nodes, site unspecified] Onset: 5 Chronic Secondary malignancies (5 sources) Secondary malignant neoplasm of lung; Translations: [Secondary malignant neoplasm of unspecified lung] 09-24-2024 Chronic Spondylosis; intervertebral disc disorders; other back problems (20 sources) Inflammation of sacroiliac joint; Translations: [Sacroiliitis, not elsewhere classified] 05-21-2024 Chronic Spondylosis; intervertebral disc disorders; other back problems (20 sources) Low back pain; Translations: [Low back pain] Onset: 4 06-07-2022 Episodic Substance-related disorders (17 sources) Smoker; Translations: [Nicotine dependence, unspecified, uncomplicated] Onset: 5 08-28-2024 Chronic Unclassified (4 sources) M54.16 - Radiculopathy, lumbar region Unclassified (2 sources) C78.01 - Secondary malignant neoplasm of right lung,C34.11 - Malignant neoplasm of upper lobe, right bronchus or lung,C34.91 - Malignant neoplasm of unspecified part of right bronchus or lung Unclassified (2 sources) C78.01 - Secondary malignant neoplasm of right lung,C34.91 - Malignant neoplasm of unspecified part of right bronchus or lung,C34.11 - Malignant neoplasm of upper lobe, right bronchus or lung Unclassified (1 source) Low back pain, unspecified; Translations: [Low back pain, unspecified] Onset: 02-05-202 5 Past or Other Problems Problem Classification Problem Date Documented Da te Episodic/Chronic Cardiac dysrhythmias (20 sources) Tachycardia; Translations: [Tachycardia, unspecified] Onset: 02-16-2024 04-19-2022 Episodic Other lower respiratory disease (9 sources) Other nonspecific abnormal finding of lung field; Translations: [Swelling, mass, or lump in chest] Onset: 12-21-2023 Episodic Other non-traumatic joint disorders (1 source) Pain in right hip; Translations: [Pain in right hip] Onset: 06-05-2024 Episodic Other screening for suspected conditions (not mental disorders or infectious disease) (1 source) Abnormal histological findings in specimens from other organs, systems and tissues; Translations: [Abnormal histological findings in specimens from other organs, systems and tissues] Onset: 12-29-2023 Episodic Unclassified (20 sources) history of left eye surgery 11-04-2021 Urinary tract infections (1 source) Urinary tract infection, site not specified; Translations: [Urinary tract infection, site not specified] Onset: 05-20-2024 Episodic Results Test Name Value Interpretation Reference Range Facility MR/PAT.ANEon 09-30-2024 MR/PAT.ANE Normal [facility] Oncology Visit Reporton 09-15 Oncology Visit Report Normal [facility] Surgery Visit Reporton 09-27 Surgery Visit Report Normal [facility] Oncology Visit Reporton 09-15 Oncology Visit Report Normal [facility] PET/CT Tumor Base -Thigh Sub son 09-17-2024 PET/CT Tumor Base -Thigh Subs Normal [facility] Absolute lymphocyte countOrd ered By: Lynda Alonso on 09-11-2024 Lymphocytes Auto (Unsp spec) [#/Vol] 1.72 10*3/uL 0.83-4.51 [facility] Absolute neutrophil countOrd ered By: Lynda Alonso on 09-11-2024 Neutrophils (Bld) [#/Vol] 6.2 10*3/uL 2.0-7.7 [facility] Anion gap in Serum or Plasma Ordered By: Lynda Alonso on 09-11-2024 Anion gap [Moles/Vol] 12 mmol/L 5-15 [facility] Automated lymphocyte count a s percentage of total leukocytesOrdered By: Lynda Alonso on 09-11-2024 Lymphocytes/100 WBC Auto (Unsp spec) 19.5 % 19- [facility] BUN/creatinine ratioOrdered By: Lynda Alonso on 09-11-2024 Urea nitrogen/Creatinine [Mass ratio] 14.7 mg/mg 10-20 [facility] Basophil percentageOrdered B y: Lynda Alonso on 09-11-2024 Basophils/100 WBC (Bld) 0.7 % 0-1 [facility] Bilirubin, totalOrdered By: Lynda Alonso on 09-11-2024 Bilirubin [Mass/Vol] 0.70 mg/dL 0.00-1.30 [facility] CBC W/Diff, Automatedon 08-16 Absolute Lymph 1.72 X10 3/uL Normal 0.83-4.51 [facility] Comment on above: Order Comment: Order Date: 09/11/24Order Info: 0184-1 - CBCD Performed By: #### L 100.0100 ####[facility] [address] [place], [address] Absolute Neut 6.2 X10 3/uL Normal 2.0-7.7 [facility] Comment on above: Order Comment: Order Date: 09/11/24Order Info: 0184-1 - CBCD Performed By: #### L 100.0100 ####[facility] [address] [place], [address] Basophils/100 WBC (Bld) 0.7 % Normal 0-1 [facility] Comment on above: Order Comment: Order Date: 09/11/24Order Info: 0184-1 - CBCD Performed By: #### L 100.0100 ####[facility] [address] [place], [address] Eosinophils/100 WBC (Bld) 0.9 % Normal 0-5 [facility] Comment on above: Order Comment: Order Date: 09/11/24Order Info: 0184-1 - CBCD Performed By: #### L 100.0100 ####[facility] [address] [place], [address] Erythrocyte distribution width (RBC) [Ratio] 12.7 % Normal 11.6-14.6 [facility] Comment on above: Order Comment: Order Date: 09/11/24Order Info: 0184-1 - CBCD Performed By: #### L 100.0100 ####[facility] [address] [place], [address] Hematocrit (Bld) [Volume fraction] 44.2 % Normal 37-47 [facility] Comment on above: Order Comment: Order Date: 09/11/24Order Info: 0184- - CBCD Performed By: #### L 100.0100 ####[facility] [address] [place], [address] Hemoglobin (Bld) [Mass/Vol] 14.6 g/dL Normal 12.0-15.0 [facility] Comment on above: Order Comment: Order Date: 09/11/24Order Info: 018- - CBCD Performed By: #### L 100.0100 ####[facility] [address] [place], [address] IG% 0.300 Normal 0.0-0.9 [facility] Comment on above: Order Comment: Order Date: 09/11/24Order Info: 0184- - CBCD Result Comment: IG% - Immature Granulocytes (promyelocytes, myelocytes andmetamyelocytes) > 1% indicates that a LEFT SHIFT is Present. Performed By: #### L 100.0100 ####[facility] [address] [place], [address] Lymphocytes/100 WBC (Bld) 19.5 % Normal 19-41 [facility] Comment on above: Order Comment: Order Date: 09/11/24Order Info: 0184-1 - CBCD Performed By: #### L 100.0100 ####[facility] [address] [place], [address] MCH (RBC) [Entitic mass] 30.5 pg Normal 27.0-32.0 [facility] Comment on above: Order Comment: Order Date: 09/11/24Order Info: 0184-1 - CBCD Performed By: #### L 100.0100 ####[facility] [address] [place], [address] MCHC (RBC) [Mass/Vol] 33.0 g/dL Normal 32-36 [facility] Comment on above: Order Comment: Order Date: 09/11/24Order Info: 0184-1 - CBCD Performed By: #### L 100.0100 ####[facility] [address] [place], [address] MCV (RBC) [Entitic vol] 92.5 fL Normal 81-99 [facility] Comment on above: Order Comment: Order Date: 09/11/24Order Info: 0184-1 - CBCD Performed By: #### L 100.0100 ####[facility] [address] [place], [address] Monocytes/100 WBC (Bld) 8.6 % Normal 0-10 [facility] Comment on above: Order Comment: Order Date: 09/11/24Order Info: 0184-1 - CBCD Performed By: #### L 100.0100 ####[facility] [address] [place], [address] Neutrophils/100 WBC (Bld) 70.0 % Normal 47-70 [facility] Comment on above: Order Comment: Order Date: 09/11/24Order Info: 0184-1 - CBCD Performed By: #### L 100.0100 ####[facility] [address] [place], [address] Nucleated RBC (Bld) [#/Vol] 0 10*3/uL Normal 0-5 [facility] Comment on above: Order Comment: Order Date: 09/11/24Order Info: 4-1 - CBCD Performed By: #### L 100.0100 ####[facility] [address] [place], [address] Platelet mean volume (Bld) [Entitic vol] 9.3 fL Normal 6.2-12.0 [facility] Comment on above: Order Comment: Order Date: 09/11/24Order Info: 4-1 - CBCD Performed By: #### L 100.0100 ####[facility] [address] [place], [address] Platelets (Bld) [#/Vol] 244 10*3/uL Normal 150-450 [facility] Comment on above: Order Comment: Order Date: 09/11/24Order Info: 183- - CBCD Performed By: #### L 100.0100 ####[facility] [address] [place], [address] RBC (Bld) [#/Vol] 4.78 10*6/uL Normal 4.2-5.4 [facility] Comment on above: Order Comment: Order Date: 09/11/24Order Info: 183-1 - CBCD Performed By: #### L 100.0100 ####[facility] [address] [place], [address] RDW SD 43.7 fl Normal 35.1-43.9 [facility] Comment on above: Order Comment: Order Date: 09/11/24Order Info: 4-1 - CBCD Performed By: #### L 100.0100 ####[facility] [address] [place], [address] WBC (Bld) [#/Vol] 8.8 10*3/uL Normal 4.4-11.0 [facility] Comment on above: Order Comment: Order Date: 09/11/24Order Info: 0184-1 - CBCD Performed By: #### L 100.0100 ####[facility] [address] [place], [place], [address] Carbon dioxide, total [Moles /volume] in Central venous bloodOrdered By: Lynda Alonso on 09-11-2024 CO2 [Moles/Vol] 25.0 mmol/L 21.0-32.0 [facility] Chloride assayOrdered By: Franc Alonso on 09-11-2024 Chloride [Moles/Vol] 99 mmol/L 98-108 [facility] Comprehensive Metabolic Prof ilon 09-11-2024 Albumin [Mass/Vol] 4.3 g/dL Normal 3.4-4.8 [facility] Comment on above: Order Comment: Order Date: 09/11/24Order Info: 86-1 - CMPOrder Info: [id number] - MGOrder Info: 301-3 - TSH Performed By: #### L 500.4050 ####[facility] [address] [place], [place], [address] Albumin/Globulin [Mass ratio] 1.4 {ratio} Normal 0.9-2.4 [facility] Comment on above: Order Comment: Order Date: 09/11/24Order Info: 0786-1 - CMPOrder Info: [id number] - MGOrder Info: 3016-3 - TSH Performed By: #### L 500.4050 ####[facility] [address] [place], [address] ALK PHOS 107 U/L High 35-104 [facility] Comment on above: Order Comment: Order Date: 09/11/24Order Info: 86-1 - CMPOrder Info: [id number] - MGOrder Info: 3016-3 - TSH Performed By: #### L 500.4050 ####[facility] [address] [place], [place], [address] ALT [Catalytic activity/Vol] 18 U/L Normal <=34 [facility] Comment on above: Order Comment: Order Date: 09/11/24Order Info: 86-1 - CMPOrder Info: [id number] - MGOrder Info: 3016-3 - TSH Performed By: #### L 500.4050 ####[facility] [address] [place], [address] AST [Catalytic activity/Vol] 30 U/L Normal <=31 [facility] Comment on above: Order Comment: Order Date: 09/11/24Order Info: 0786-1 - CMPOrder Info: [id number] - MGOrder Info: 301-3 - TSH Performed By: #### L 500.4050 ####[facility] [address] [place], [address] Bilirubin [Mass/Vol] 0.70 mg/dL Normal 0.00-1.30 [facility] Comment on above: Order Comment: Order Date: 09/11/24Order Info: 0786-1 - CMPOrder Info: [id number] - MGOrder Info: 301-3 - TSH Performed By: #### L 500.4050 ####[facility] [address] [place], [address] BUN/CRE 14.7 RATIO Normal 10-20 [facility] Comment on above: Order Comment: Order Date: 09/11/24Order Info: 0786-1 - CMPOrder Info: [id number] - MGOrder Info: 3015-3 - TSH Performed By: #### L 500.4050 ####[facility] [address] [place], [address] Calcium [Mass/Vol] 9.3 mg/dL Normal 7.6-11.0 [facility] Comment on above: Order Comment: Order Date: 09/11/24Order Info: 0786-1 - CMPOrder Info: [id number] - MGOrder Info: 301-3 - TSH Performed By: #### L 500.4050 ####[facility] [address] [place], [address] Chloride [Moles/Vol] 99 mmol/L Normal 98-108 [facility] Comment on above: Order Comment: Order Date: 09/11/24Order Info: 0786-1 - CMPOrder Info: [id number] - MGOrder Info: 3016-3 - TSH Performed By: #### L 500.4050 ####[facility] [address] [place], [address] CO2 [Moles/Vol] 25.0 mmol/L Normal 21.0-32.0 [facility] Comment on above: Order Comment: Order Date: 09/11/24Order Info: 86-1 - CMPOrder Info: [id number] - MGOrder Info: 3016-3 - TSH Performed By: #### L 500.4050 ####[facility] [address] [place], [address] Creatinine [Mass/Vol] 0.97 mg/dL Normal 0.70-1.20 [facility] Comment on above: Order Comment: Order Date: 09/11/24Order Info: 86-1 - CMPOrder Info: [id number] - MGOrder Info: 301-3 - TSH Performed By: #### L 500.4050 ####[facility] [address] [place], [address] GAP 12 Normal 5-15 [facility] Comment on above: Order Comment: Order Date: 09/11/24Order Info: 0786-1 - CMPOrder Info: [id number] - MGOrder Info: 3016-3 - TSH Performed By: #### L 500.4050 ####[facility] [address] [place], [address] GFR/1.73 sq M.predicted among non-blacks MDRD (S/P/Bld) [Vol rate/Area] 64 mL/min/{1.73_m2} Normal >60 [facility] Comment on above: Order Comment: Order Date: 09/11/24Order Info: 0786-1 - CMPOrder Info: [id number] - MGOrder Info: 3016-3 - TSH Result Comment: mL/m in/1.73m2 CKD-EPI Creatinine Equation (2020) Performed By: #### L 500.4050 ####[facility] [address] [place], [address] Globulin (S) [Mass/Vol] 3.2 g/dL Normal 2.2-4.2 [facility] Comment on above: Order Comment: Order Date: 09/11/24Order Info: 0786-1 - CMPOrder Info: [id number] - MGOrder Info: 3016-3 - TSH Performed By: #### L 500.4050 ####[facility] [address] [place], [address] Glucose [Mass/Vol] 149 mg/dL High 70-99 [facility] Comment on above: Order Comment: Order Date: 09/11/24Order Info: 0786-1 - CMPOrder Info: [id number] - MGOrder Info: 3016-3 - TSH Performed By: #### L 500.4050 ####[facility] [address] [place], [address] Potassium [Moles/Vol] 4.0 mmol/L Normal 3.3-5.1 [facility] Comment on above: Order Comment: Order Date: 09/11/24Order Info: 0786-1 - CMPOrder Info: [id number] - MGOrder Info: 3016-3 - TSH Performed By: #### L 500.4050 ####[facility] [address] [place], [address] Sodium [Moles/Vol] 136 mmol/L Normal 133-145 [facility] Comment on above: Order Comment: Order Date: 09/11/24Order Info: 0786-1 - CMPOrder Info: [id number] - MGOrder Info: 3016-3 - TSH Performed By: #### L 500.4050 ####[facility] [address] [place], [address] T PROT 7.4 g/dL Normal 5.9-8.4 [facility] Comment on above: Order Comment: Order Date: 09/11/24Order Info: 0786-1 - CMPOrder Info: [id number] - MGOrder Info: 3016-3 - TSH Performed By: #### L 500.4050 ####[facility] [address] [place], [place], [address] Urea nitrogen [Mass/Vol] 14 mg/dL Normal 4-19 [facility] Comment on above: Order Comment: Order Date: 09/11/24Order Info: 0786-1 - CMPOrder Info: [id number] - MGOrder Info: 6-3 - TSH Performed By: #### L 500.4050 ####[facility] [address] [place], [place], [address] Eosinophil percentageOrdered By: Lynda Alonso on 09-11-2024 Eosinophils/100 WBC (Bld) 0.9 % 0-5 [facility] Erythrocyte distribution wid th ratioOrdered By: Lynda Alonso on 09-11-2024 Erythrocyte distribution width (RBC) [Ratio] 12.7 % 11.6-14.6 [facility] Erythrocyte distribution wid th standard deviationOrdered By: Lynda Celeste on 09-11-2024 Erythrocyte distribution width (RBC) [Ratio] 43.7 fl 35.1-43.9 [facility] Glomerular filtration rate ( GFR) estimation/1.73 sq m using serum, plasma, or whole bOrdered By: Lynda Alonso on 09-11-2024 GFR/1.73 sq M.predicted among non-blacks MDRD (S/P/Bld) [Vol rate/Area] 64 mL/min/{1.73_m2} >60 [facility] Comment on above: mL/min/1.73m2 CKD-EP I Creatinine Equation (2020) Hematocrit Auto (Bld) [Volum e fraction]Ordered By: Lynda Alonso on 09-11-2024 Hematocrit (Bld) [Volume fraction] 44.2 % 37-47 [facility] Hemoglobin measurementOrdere d By: Lynda Alonso on 09-11-2024 Hemoglobin (Bld) [Mass/Vol] 14.6 g/dL 12.0-15.0 [facility] Immature granulocytes/100 WB C Auto (Bld)Ordered By: Lynda Alonso on 09-11-2024 Immature granulocytes/100 WBC (Bld) 0.300 % 0.0-0.9 [facility] Comment on above: IG% - Immature Granu locytes (promyelocytes, myelocytes and metamyelocytes) > 1% indicates that a LEFT SHIFT is Present. Laboratory - Chemistry and C hemistry - challengeOrdered By: Lynda Alonso on 09-11-2024 AST [Catalytic activity/Vol] 30 U/L <32 [facility] MCV (mean corpuscular volume ) determinationOrdered By: Lynda Alonso on 09-11-2024 MCV (RBC) [Entitic vol] 92.5 fL 81-99 [facility] Magnesiumon 09-11-2024 Magnesium [Mass/Vol] 2.2 mg/dL Normal 1.5-2.2 [facility] Comment on above: Order Comment: Order Date: 09/11/24Order Info: 0786-1 - CMPOrder Info: [id number] - MGOrder Info: 3016-3 - TSH Performed By: #### L 501.5200 ####[facility] [address] [place], [place], [address] Magnesium measurement (mass/ volume)Ordered By: Lynda Alonso on 09-11-2024 Magnesium (Unsp spec) [Mass/Vol] 2.2 mg/dL 1.5-2.2 [facility] Mean corpuscular hemoglobin (MCH) determinationOrdered By: Lynda Alonso on 09-11-2024 MCH (RBC) [Entitic mass] 30.5 pg 27.0-32.0 [facility] Mean corpuscular hemoglobin concentration (MCHC) determinationOrdered By: Lynda Alonso on 09-11-2024 MCHC (RBC) [Mass/Vol] 33.0 g/dL 32-36 [facility] Mean platelet volume determi nationOrdered By: Lynda Alonso on 09-11-2024 Platelet mean volume (Bld) [Entitic vol] 9.3 fL 6.2-12.0 [facility] Monocyte percentageOrdered B y: Lynda Alonso on 09-11-2024 Monocytes/100 WBC (Bld) 8.6 % 0-10 [facility] Neutrophil percentageOrdered By: Lynda Alonso on 09-11-2024 Neutrophils/100 WBC (Bld) 70.0 % 47-70 [facility] Nucleated red blood cell per centageOrdered By: Lynda Alonso on 09-11-2024 Nucleated RBC/100 WBC (Bld) [Ratio] 0 % 0-5 [facility] Oncology Visit Reporton 08-16 Oncology Visit Report Normal [facility] Platelet countOrdered By: Franc Alonso on 09-11-2024 Platelets (Bld) [#/Vol] 244 10*3/uL 150-450 [facility] Potassium measurement (mass/ volume)Ordered By: Lynda Alonso on 09-11-2024 Potassium (Unsp spec) [Mass/Vol] 4.0 mmol/L 3.3-5.1 [facility] RBC Auto (Bld) [#/Vol]Ordere d By: Lynda Alonso on 09-11-2024 RBC (Bld) [#/Vol] 4.78 10*6/uL 4.2-5.4 [facility] Serum creatinine measurement (mass/volume)Ordered By: Lynda Alonso on 09-11-2024 Creatinine [Mass/Vol] 0.97 mg/dL 0.70-1.20 [facility] Serum globulin measurementOr dered By: Lynda Alonso on 09-11-2024 Globulin (S) [Mass/Vol] 3.2 g/dL 2.2-4.2 [facility] Serum glucose measurement (m ass/volume)Ordered By: Lynda Alonso on 09-11-2024 Glucose [Mass/Vol] 149 mg/dL High 70-99 [facility] Serum or plasma alanine lam otransferase (ALT) measurementOrdered By: Lynda Alonso on 09-11-2024 ALT [Catalytic activity/Vol] 18 U/L <35 [facility] Serum or plasma albumin nicole urement (mass/volume)Ordered By: Lynda Alonso on 09-11-2024 Albumin [Mass/Vol] 4.3 g/dL 3.4-4.8 [facility] Serum or plasma albumin/glob ulin mass ratioOrdered By: Lynda Celeste on 09-11-2024 Albumin/Globulin [Mass ratio] 1.4 {ratio} 0.9-2.4 [facility] Serum or plasma alkaline natanael sphatase measurementOrdered By: Lynda Clarkke on 09-11-2024 ALP [Catalytic activity/Vol] 107 U/L High 35-104 [facility] Serum or plasma calcium nicole urement (mass/volume)Ordered By: Lynda Alonso on 09-11-2024 Calcium [Mass/Vol] 9.3 mg/dL 7.6-11.0 [facility] Serum or plasma urea nitroge n measurement (mass/volume)Ordered By: Lynda Alonso on 09-11-2024 Urea nitrogen [Mass/Vol] 14 mg/dL 4-19 [facility] Sodium levelOrdered By: Vivi Alonso on 09-11-2024 Sodium [Moles/Vol] 136 mmol/L 133-145 [facility] TSH DL <= 0.005 mIU/L QnOrde red By: Lynda Alonso on 09-11-2024 TSH Qn 2.390 uIU/mL 0.300-4.200 [facility] Thyroid Stim Hormone (TSH)on 09-11-2024 TSH 2.390 uIU/mL Normal 0.300-4.200 [facility] Comment on above: Order Comment: Order Date: 09/11/24Order Info: 0786-1 - CMPOrder Info: - MGOrder Info: [id number] - TSH Performed By: #### L 501.9520 ####[facility] [address] [place], [address] Total proteinOrdered By: Rhonda Alonso on 09-11-2024 Protein [Mass/Vol] 7.4 g/dL 5.9-8.4 [facility] Vitamin D,25 Hydroxyon 09-11 Vitamin D 25-OH 27.4 ng/mL Low 30-100 [facility] Comment on above: Order Comment: Order Date: 09/11/24Order Info: 0786-1 - CMPOrder Info: - MGOrder Info: [id number] - TSH Result Comment: Loren min D StatusDeficiency: <20 ng/mL (50nmol/L)Insufficiency: 20-30 ng/mL (50-75 nmol/L)Sufficiency: 30-100 ng/mL (75-250 nmol/L)Toxicity: >100 ng/mL (>250 nmol/L) Performed By: #### L 506.1001 ####[facility] [address] [place], [address] White blood cell (WBC) count Ordered By: Lynda Alonso on 09-11-2024 WBC (Bld) [#/Vol] 8.8 10*3/uL 4.4-11.0 [facility] Surgical pathology reportOrd ered By: Amada Carrasco on 09-05-2024 Surgical pathology study [facility] Absolute lymphocyte countOrd ered By: Manny Alarcon on 09-03-2024 Lymphocytes Auto (Unsp spec) [#/Vol] 1.91 10*3/uL 0.83-4.51 [facility] Absolute neutrophil countOrd ered By: Manny Alarcon on 09-03-2024 Neutrophils (Bld) [#/Vol] 7.0 10*3/uL 2.0-7.7 [facility] Activated partial thrombopla stin time (aPTT) in platelet poor plasma by coagulation aOrdered By: Manny Alarcon on 09-03-2024 aPTT Coag (PPP) [Time] 24.4 s 24.1-36.2 [facility] Automated lymphocyte count a s percentage of total leukocytesOrdered By: Manny Alarcon on 09-03-2024 Lymphocytes/100 WBC Auto (Unsp spec) 18.6 % Low 19-41 [facility] Basophil percentageOrdered B y: Manny Alarcon on 09-03-2024 Basophils/100 WBC (Bld) 0.9 % 0-1 [facility] Biopsy/Inj or Needle Placeme nton 09-03-2024 Biopsy/Inj or Needle Placement Normal [facility] CBC W/Diff, Automatedon 08-16 Absolute Lymph 1.91 X10 3/uL Normal 0.83-4.51 [facility] Comment on above: Performed By: #### L 300.4310, L300.3900, L100.0100 ####[facility] [address] [place], [address] Absolute Neut 7.0 X10 3/uL Normal 2.0-7.7 [facility] Comment on above: Performed By: #### L 300.4310, L300.3900, L100.0100 ####[facility] [address] [place], [address] Basophils/100 WBC (Bld) 0.9 % Normal 0-1 [facility] Comment on above: Performed By: #### L 300.4310, L300.3900, L100.0100 ####[facility] [address] [place], [address] Eosinophils/100 WBC (Bld) 1.2 % Normal 0-5 [facility] Comment on above: Performed By: #### L 300.4310, L300.3900, L100.0100 ####[facility] [address] [place], [address] Erythrocyte distribution width (RBC) [Ratio] 13.0 % Normal 11.6-14.6 [facility] Comment on above: Performed By: #### L 300.4310, L300.3900, L100.0100 ####[facility] [address] [place], [address] Hematocrit (Bld) [Volume fraction] 48.7 % High 37-47 [facility] Comment on above: Performed By: #### L 300.4310, L300.3900, L100.0100 ####[facility] [address] [place], [address] Hemoglobin (Bld) [Mass/Vol] 15.7 g/dL High 12.0-15.0 [facility] Comment on above: Performed By: #### L 300.4310, L300.3900, L100.0100 ####[facility] [address] [place], [address] IG% 0.700 Normal 0.0-0.9 [facility] Comment on above: Result Comment: IG% - Immature Granulocytes (promyelocytes, myelocytes andmetamyelocytes) > 1% indicates that a LEFT SHIFT is Present. Performed By: #### L 300.4310, L300.3900, L100.0100 ####[facility] [address] [place], [address] Lymphocytes/100 WBC (Bld) 18.6 % Low 19-41 [facility] Comment on above: Performed By: #### L 300.4310, L300.3900, L100.0100 ####[facility] [address] [place], [address] MCH (RBC) [Entitic mass] 30.5 pg Normal 27.0-32.0 [facility] Comment on above: Performed By: #### L 300.4310, L300.3900, L100.0100 ####[facility] [address] [place], [address] MCHC (RBC) [Mass/Vol] 32.2 g/dL Normal 32-36 [facility] Comment on above: Performed By: #### L 300.4310, L300.3900, L100.0100 ####[facility] [address] [place], [address] MCV (RBC) [Entitic vol] 94.7 fL Normal 81-99 [facility] Comment on above: Performed By: #### L 300.4310, L300.3900, L100.0100 ####[facility] [address] [place], [address] Monocytes/100 WBC (Bld) 10.1 % High 0-10 [facility] Comment on above: Performed By: #### L 300.4310, L300.3900, L100.0100 ####[facility] [address] [place], [address] Neutrophils/100 WBC (Bld) 68.5 % Normal 47-70 [facility] Comment on above: Performed By: #### L 300.4310, L300.3900, L100.0100 ####[facility] [address] [place], [address] Nucleated RBC (Bld) [#/Vol] 0 10*3/uL Normal 0-5 [facility] Comment on above: Performed By: #### L 300.4310, L300.3900, L100.0100 ####[facility] [address] [place], [address] Platelet mean volume (Bld) [Entitic vol] 8.4 fL Normal 6.2-12.0 [facility] Comment on above: Performed By: #### L 300.4310, L300.3900, L100.0100 ####[facility] [address] [place], [address] Platelets (Bld) [#/Vol] 283 10*3/uL Normal 150-450 [facility] Comment on above: Performed By: #### L 300.4310, L300.3900, L100.0100 ####[facility] [address] [place], [address] RBC (Bld) [#/Vol] 5.14 10*6/uL Normal 4.2-5.4 [facility] Comment on above: Performed By: #### L 300.4310, L300.3900, L100.0100 ####[facility] [address] [place], [address] RDW SD 45.4 fl High 35.1-43.9 [facility] Comment on above: Performed By: #### L 300.4310, L300.3900, L100.0100 ####[facility] [address] [place], [address] WBC (Bld) [#/Vol] 10.3 10*3/uL Normal 4.4-11.0 [facility] Comment on above: Performed By: #### L 300.4310, L300.3900, L100.0100 ####[facility] [address] [place], [address] Chest Insp/Exp 2 Viewon 08-16 Chest Insp/Exp 2 View Normal [facility] Chest Insp/Exp 2 View Normal [facility] Eosinophil percentageOrdered By: Manny Alarcon on 09-03-2024 Eosinophils/100 WBC (Bld) 1.2 % 0-5 [facility] Erythrocyte distribution wid th ratioOrdered By: Mannynatalya Alarcon on 09-03-2024 Erythrocyte distribution width (RBC) [Ratio] 13.0 % 11.6-14.6 [facility] Erythrocyte distribution wid th standard deviationOrdered By: Manny Alarcon on 09-03-2024 Erythrocyte distribution width (RBC) [Ratio] 45.4 fl High 35.1-43.9 [facility] Hematocrit Auto (Bld) [Volum e fraction]Ordered By: Manny Alarcon on 09-03-2024 Hematocrit (Bld) [Volume fraction] 48.7 % High 37-47 [facility] Hemoglobin measurementOrdere d By: Manny Alarcon on 09-03-2024 Hemoglobin (Bld) [Mass/Vol] 15.7 g/dL High 12.0-15.0 [facility] Immature granulocytes/100 WB C Auto (Bld)Ordered By: Manny Alarcon on 09-03-2024 Immature granulocytes/100 WBC (Bld) 0.700 % 0.0-0.9 [facility] Comment on above: IG% - Immature Granu locytes (promyelocytes, myelocytes and metamyelocytes) > 1% indicates that a LEFT SHIFT is Present. Immunohistochemical Stainson 09-03-2024 Immunohistochemical Stains Normal [facility] Comment on above: Performed By: #### P IMMN ####[facility] [address] [place], [address] International normalized rat io (INR) calculationOrdered By: Manny Alarcon on 09-03-2024 INR Coag (Bld) [Relative time] 0.9 {INR} [facility] MCV (mean corpuscular volume ) determinationOrdered By: Manny Alarcon on 09-03-2024 MCV (RBC) [Entitic vol] 94.7 fL 81-99 [facility] Mean corpuscular hemoglobin (MCH) determinationOrdered By: Mannynatalya Alarcon on 09-03-2024 MCH (RBC) [Entitic mass] 30.5 pg 27.0-32.0 [facility] Mean corpuscular hemoglobin concentration (MCHC) determinationOrdered By: Mannynatalya Alarcon on 09-03-2024 MCHC (RBC) [Mass/Vol] 32.2 g/dL 32-36 [facility] Mean platelet volume determi nationOrdered By: Mannynatalya Alarcon on 09-03-2024 Platelet mean volume (Bld) [Entitic vol] 8.4 fL 6.2-12.0 [facility] Monocyte percentageOrdered B y: Manny Alarcon on 09-03-2024 Monocytes/100 WBC (Bld) 10.1 % High 0-10 [facility] Neutrophil percentageOrdered By: Mannynatalya Alarcon on 09-03-2024 Neutrophils/100 WBC (Bld) 68.5 % 47-70 [facility] Nucleated red blood cell per centageOrdered By: Manny Alarcon on 09-03-2024 Nucleated RBC/100 WBC (Bld) [Ratio] 0 % 0-5 [facility] Partial Thromboplast Timeon 09-03-2024 aPTT Coag (Bld) [Time] 24.4 s Normal 24.1-36.2 [facility] Comment on above: Performed By: #### L 300.4310, L300.3900, L100.0100 ####[facility] [address] [place], [address] Platelet countOrdered By: Fer Alarcon on 09-03-2024 Platelets (Bld) [#/Vol] 283 10*3/uL 150-450 [facility] Prothrombin Time w/INRon INR Coag (PPP) [Relative time] 0.9 {INR} Normal [facility] Comment on above: Performed By: #### L 300.4310, L300.3900, L100.0100 ####[facility] [address] [place], [address] PT Coag (PPP) [Time] 12.0 s Normal 11.7-14.9 [facility] Comment on above: Performed By: #### L 300.4310, L300.3900, L100.0100 ####[facility] [address] [place], [address] Prothrombin timeOrdered By: Manny Alarcon on 09-03-2024 PT Coag (PPP) [Time] 12.0 s 11.7-14.9 [facility] RBC Auto (Bld) [#/Vol]Ordere d By: Manny Alarcon on 09-03-2024 RBC (Bld) [#/Vol] 5.14 10*6/uL 4.2-5.4 [facility] White blood cell (WBC) count Ordered By: Manny Alarcon on 09-03-2024 WBC (Bld) [#/Vol] 10.3 10*3/uL 4.4-11.0 [facility] Oncology Visit Reporton 08-15 Oncology Visit Report Normal [facility] Pulmonary Visit Reporton Pulmonary Visit Report Normal [facility] CT Chest AND Abd W/ Contrast on 08-26-2024 CT Chest AND Abd W/ Contrast Normal [facility] 6 Minute Walk Teston 025 6 Minute Walk Test Normal [facility] Magnetic resonance imaging r eportOrdered By: Saman Santacruz on 06-25-2024 Study report [facility] Imaging Services [address] [place] [address] Brain W/WO Contrast MR#: [id number] Acct: [id number] Name: GABRIELLE HERNANDEZ Rep #: [id number] : [id number] F [id number] From: Lita Santacruz MD PCP: Dr. Lynda Alonso MD Status: REG CL I Study:Brain W/WO Contrast Date of Exam: 06/21/24 Exam# [id number] Ordering Dr: Aly Gupta DO EXAM: MRI brain with and without contrast. CLINICAL HISTORY: eval for brain metastases COMPARISON: 12/04/2023 TECHNIQUE: Multisequence multiplanar MRI brain was performed with and without intravenous contrast. Contrast: 12 mL Clariscan. FINDINGS: Cerebrum: Moderate supratentorial white matter abnormalities, nonspecific but similar to prior and compatible with chronic microvascular ischemic changes. Mild cerebral volume loss. 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 No acute infarct, appreciable intracranial hemorrhage, mass, or mass effect. Midline structures unremarkable. Cerebellum: Unremarkable. Brainstem: Unremarkable. Ventricles/extra-axial spaces: Unremarkable. No hydrocephalus.. Major flow voids: Unremarkable.. Paranasal sinuses: Unremarkable. Scalp/calvarium: Unremarkable. Orbits: Grossly unremarkable within limits of technique. Other: No abnormal enhancement. Degenerative changes within the upper cervical spine at C1-C2. MRI/Brain W/WO Contrast IMPRESSION: 1. No findings to suggest intracranial metastatic disease. 2. Additional description as above. Reading Location: [facility] CC: Dr. Lynda Alonso MD; Dr. Aly Gupta DO ~ Community Dietitian: Signed [facility] Radiation Oncology Visiton 0 06-24-2024 Radiation Oncology Visit Normal [facility] Brain W/WO Contraston 2024 Brain W/WO Contrast Normal [facility] Oncology Visit Reporton Oncology Visit Report Normal [facility] CT Chest AND Abd W/ Contrast on 06-18-2024 CT Chest AND Abd W/ Contrast Normal [facility] Albumin to globulin ratioOrd ered By: Lynda Alonso on 05-21-2024 Albumin/Globulin [Mass ratio] 0.9 {ratio} 0.9-2.4 [facility] Bilirubin, totalOrdered By: Lynda Alonso on 05-21-2024 Bilirubin [Mass/Vol] 0.90 mg/dL 0.20-1.00 [facility] Comment on above: For patients on eltr ombopag therapy, use of Dimension [place] TBIL is not recommended. Blood urea nitrogen (BUN)/cr eatinine ratioOrdered By: Lynda Alonso on 05-21-2024 Urea nitrogen/Creatinine [Mass ratio] 20.6 mg/mg High 10-20 [facility] Carbon dioxide measurementOr dered By: Lynda Alonso on 05-21-2024 CO2 [Moles/Vol] 24.0 mmol/L 21.0-32.0 [facility] Chloride measurementOrdered By: Lynda Alonso on 05-21-2024 Chloride [Moles/Vol] 102 mmol/L 98-107 [facility] Comprehensive Metabolic Prof ilon 05-21-2024 Albumin [Mass/Vol] 3.8 g/dL Normal 3.2-5.0 [facility] Comment on above: Order Comment: DR. Clayton SALDANA AND GETS TSHOrder Date: 05/13/24Order Info: 0786-1 - CMP Performed By: #### L 500.4050 ####[facility] [address] [place], [address] Albumin/Globulin [Mass ratio] 0.9 {ratio} Normal 0.9-2.4 [facility] Comment on above: Order Comment: DR. Clayton SALDANA AND GETS TSHOrder Date: 05/13/24Order Info: 0786-1 - CMP Performed By: #### L 500.4050 ####[facility] [address] [place], [address] ALK P 83 U/L Normal 45-117 [facility] Comment on above: Order Comment: DR. Clayton VARGASCMFranklin AND GETS TSHOrder Date: 05/13/24Order Info: 0786-1 - CMP Performed By: #### L 500.4050 ####[facility] [address] [place], [address] ALT [Catalytic activity/Vol] 22 U/L Normal 13-56 [facility] Comment on above: Order Comment: DR. Clayton VARGASCMP AND GETS TSHOrder Date: 05/13/24Order Info: 785- - CMP Performed By: #### L 500.4050 ####[facility] [address] [place], [address] AST [Catalytic activity/Vol] 15 U/L Normal 15-37 [facility] Comment on above: Order Comment: DR. Clayton SALDANA AND GETS TSHOrder Date: 05/13/24Order Info: 07- - CMP Performed By: #### L 500.4050 ####[facility] [address], [address] Bilirubin [Mass/Vol] 0.90 mg/dL Normal 0.20-1.00 [facility] Comment on above: Order Comment: DR. Clayton VARGASCMP AND GETS TSHOrder Date: 05/13/24Order Info: 0786-1 - CMP Result Comment: For patients on eltrombopag therapy, use of Dimension [place] TBIL is not recommended. Performed By: #### L 500.4050 ####[facility] [address] [place], [address] BUN/CRE 20.6 RATIO High 10-20 [facility] Comment on above: Order Comment: DR. Clayton SALDANA AND GETS TSHOrder Date: 05/13/24Order Info: 0786-1 - CMP Performed By: #### L 500.4050 ####[facility] [address], [address] CA,Total 9.6 mg/dL Normal 8.5-10.1 [facility] Comment on above: Order Comment: DR. Clayton VARGASCMP AND GETS TSHOrder Date: 05/13/24Order Info: 785-04 - CMP Performed By: #### L 500.4050 ####[facility] [address] [place], [address] Chloride [Moles/Vol] 102 mmol/L Normal 98-107 [facility] Comment on above: Order Comment: DR. Clayton VARGASCMP AND GETS TSHOrder Date: 05/13/24Order Info: 785-04 - CMP Performed By: #### L 500.4050 ####[facility] [address] [place], [address] CO2 [Moles/Vol] 24.0 mmol/L Normal 21.0-32.0 [facility] Comment on above: Order Comment: DR. Clayton VARGASCMFranklin AND GETS TSHOrder Date: 05/13/24Order Info: 785-04 - CMP Performed By: #### L 500.4050 ####[facility] [address] [place], [address] Creatinine [Mass/Vol] 0.92 mg/dL Normal 0.55-1.02 [facility] Comment on above: Order Comment: DR. Clayton VARGASCMP AND GETS TSHOrder Date: 05/13/24Order Info: 785-04 - CMP Result Comment: The validity of the calculated GFR GFRAA in patients over70 years has not been determined. Clinical correlation isessential. Performed By: #### L 500.4050 ####[facility] [address] [place], [address] EST GFR - AA 78 mL/min Normal >60 [facility] Comment on above: Order Comment: DR. Clayton HOBBS GETSCMP AND GETS TSHOrder Date: 05/13/24Order Info: 0786-1 - CMP Result Comment: Afri can [place] GFR Calc Performed By: #### L 500.4050 ####[facility] [address] [place], [address] GAP 8 Normal 5-15 [facility] Comment on above: Order Comment: DR. Clayton HOBBS GETSCMP AND GETS TSHOrder Date: 05/13/24Order Info: 0786-1 - CMP Performed By: #### L 500.4050 ####[facility] [address] [place], [address] GFR/1.73 sq M.predicted among non-blacks MDRD (S/P/Bld) [Vol rate/Area] 65 mL/min/{1.73_m2} Normal >60 [facility] Comment on above: Order Comment: DR. Clayton HOBBS GETSCMP AND GETS TSHOrder Date: 05/13/24Order Info: 07-1 - CMP Result Comment: Non- GFR Calc Performed By: #### L 500.4050 ####[facility] [address] [place], [address] Globulin (S) [Mass/Vol] 4.1 g/dL Normal 2.2-4.2 [facility] Comment on above: Order Comment: DR. Clayton HOBBS GETSCMP AND GETS TSHOrder Date: 05/13/24Order Info: 0786-1 - CMP Performed By: #### L 500.4050 ####[facility] [address] [place], [address] Glucose [Mass/Vol] 109 mg/dL High 74-106 [facility] Comment on above: Order Comment: DR. Clayton HOBBS GETSCMP AND GETS TSHOrder Date: 05/13/24Order Info: 0786-1 - CMP Result Comment: Fast ing Glucose result from 100 to 125 mg/dLsuggests IMPAIRED HOMEOSTASIS per A.D.A. criteria. Performed By: #### L 500.4050 ####[facility] [address] [place], [address] Potassium [Moles/Vol] 4.6 mmol/L Normal 3.5-5.1 [facility] Comment on above: Order Comment: DR. Clayton SALDANA AND GETS TSHOrder Date: 05/13/24Order Info: 0786-1 - CMP Performed By: #### L 500.4050 ####[facility] [address] [place], [address] Sodium [Moles/Vol] 134 mmol/L Low 136-145 [facility] Comment on above: Order Comment: DR. Clayton SALDANA AND GETS TSHOrder Date: 05/13/24Order Info: 785- - CMP Performed By: #### L 500.4050 ####[facility] [address] [place], [address] T PROT 7.9 g/dL Normal 6.4-8.2 [facility] Comment on above: Order Comment: DR. Clayton SALDANA AND GETS TSHOrder Date: 05/13/24Order Info: 07- - CMP Performed By: #### L 500.4050 ####[facility] [address] [place], [address] Urea nitrogen [Mass/Vol] 19 mg/dL High 7-18 [facility] Comment on above: Order Comment: DR. Clayton SALDANA AND GETS TSHOrder Date: 05/13/24Order Info: 07-1 - CMP Performed By: #### L 500.4050 ####[facility] [address] [place], [address] Estimated glomerular filtrat ion rate (GFR) AmericanOrdered By: Lynda Alonso on 05-21-2024 Estimated GFR (MDRD) Amer 78 mL/min >60 [facility] Comment on above: GFR Calc Glomerular filtration rate ( GFR) estimationOrdered By: Lynda Alonso on 05-21-2024 Estimated GFR (MDRD) Non-Af Amer 65 mL/min >60 [facility] Comment on above: Non- GFR Calc GFR/1.73 sq M.predicted among non-blacks MDRD (S/P/Bld) [Vol rate/Area] 65 mL/min/{1.73_m2} >60 [facility] Comment on above: Non- GFR Calc Glucose measurementOrdered B y: Lynda Alonso on 05-21-2024 Glucose [Mass/Vol] 109 mg/dL High 74-106 [facility] Comment on above: Fasting Glucose resu lt from 100 to 125 mg/dL suggests IMPAIRED HOMEOSTASIS per A.D.A. criteria. Laboratory - Chemistry and C hemistry - challengeOrdered By: Lynda Alonso on 05-21-2024 AST [Catalytic activity/Vol] 15 U/L 15-37 [facility] Orthopedic Visit Reporton Orthopedic Visit Report Normal [facility] Potassium measurementOrdered By: Lynda Alonso on 05-21-2024 Potassium [Moles/Vol] 4.6 mmol/L 3.5-5.1 [facility] Serum anion gap measurementO rdered By: Lynda Alonso on 05-21-2024 Anion gap [Moles/Vol] 8 mmol/L 5-15 [facility] Serum globulin measurementOr dered By: Lynda Alonso on 05-21-2024 Globulin (S) [Mass/Vol] 4.1 g/dL 2.2-4.2 [facility] Serum or plasma alanine lam otransferase (ALT) measurementOrdered By: Lynda Alonso on 05-21-2024 ALT [Catalytic activity/Vol] 22 U/L 13-56 [facility] Serum or plasma albumin nicole urement (mass/volume)Ordered By: Lynda Alonso on 05-21-2024 Albumin [Mass/Vol] 3.8 g/dL 3.2-5.0 [facility] Serum or plasma alkaline natanael sphatase measurementOrdered By: Lynda Alonso on 05-21-2024 ALP [Catalytic activity/Vol] 83 U/L 45-117 [facility] Serum or plasma calcium nicole urement (mass/volume)Ordered By: Lynda Alonso on 05-21-2024 Calcium [Mass/Vol] 9.6 mg/dL 8.5-10.1 [facility] Serum or plasma creatinine m easurement (mass/volume)Ordered By: Lynda Alonso on 05-21-2024 Creatinine [Mass/Vol] 0.92 mg/dL 0.55-1.02 [facility] Comment on above: The validity of the calculated GFR & GFRAA in patients over 70 years has not been determined. Clinical correlation is essential. Serum or plasma thyroid stim ulating hormone (TSH) measurement (units/volume)Ordered By: Lynda Alonso on 05-21-2024 TSH Qn 2.750 uIU/mL 0.358-3.740 [facility] Serum or plasma urea nitroge n measurement (mass/volume)Ordered By: Lynda Alonso on 05-21-2024 Urea nitrogen [Mass/Vol] 19 mg/dL High 7-18 [facility] Sodium levelOrdered By: Vivi Alonso on 05-21-2024 Sodium [Moles/Vol] 134 mmol/L Low 136-145 [facility] TSH QnOrdered By: Lynda levin on 05-21-2024 Thyroid Stimulating Hormone (TSH) 2.750 uIU/mL 0.358-3.740 [facility] Thyroid Stim Hormone (TSH)on 05-21-2024 TSH 2.750 uIU/mL Normal 0.358-3.740 [facility] Comment on above: Order Comment: DR. Clayton HOBBS GETSCMP AND GETS TSHOrder Date: 05/13/24Order Info: [id number] - CMP Performed By: #### L 501.9520 ####[facility] [address] [place], [address] Total proteinOrdered By: Rhonda Alonso on 05-21-2024 Protein [Mass/Vol] 7.9 g/dL 6.4-8.2 [facility] Pelvis (Routine)on Pelvis (Routine) Normal [facility] Orthopedic Visit Reporton Orthopedic Visit Report Normal [facility] Spine Lumbar (Routine)on Spine Lumbar (Routine) Normal [facility] Absolute lymphocyte countOrd ered By: Cesar Barbour on 04-30-2024 Lymphocytes Auto (Unsp spec) [#/Vol] 1.38 10*3/uL 0.83-4.51 [facility] Absolute neutrophil countOrd ered By: Cesar Barbour on 04-30-2024 Neutrophils (Bld) [#/Vol] 9.6 10*3/uL High 2.0-7.7 [facility] Activated partial thrombopla stin time (aPTT) in platelet poor plasma by coagulation aOrdered By: Cesar Barbour on 04-30-2024 aPTT Coag (PPP) [Time] 24.1 s 24.1-36.2 [facility] Albumin to globulin ratioOrd ered By: Cesar Barbour on 04-30-2024 Albumin/Globulin [Mass ratio] 1.2 {ratio} 0.9-2.4 [facility] Automated lymphocyte count a s percentage of total leukocytesOrdered By: Cesar Barbour on 04-30-2024 Lymphocytes/100 WBC Auto (Unsp spec) 11.8 % Low 19-41 [facility] Basophil percentageOrdered B y: Cesar Barbour on 04-30-2024 Basophils/100 WBC (Bld) 0.4 % 0-1 [facility] Bilirubin Test strip Ql (U)O rdered By: Cesar Barbour on 04-30-2024 Bilirubin Ql (U) Negative Negative [facility] Bilirubin, totalOrdered By: Cesar Barbour on 04-30-2024 Bilirubin [Mass/Vol] 0.90 mg/dL 0.20-1.00 [facility] Comment on above: For patients on eltr ombopag therapy, use of Dimension [place] TBIL is not recommended. Blood urea nitrogen (BUN)/cr eatinine ratioOrdered By: Cesar Barbour on 04-30-2024 Urea nitrogen/Creatinine [Mass ratio] 11.6 mg/mg 10-20 [facility] CBC W/Diff, Automatedon 01- Absolute Lymph 1.38 X10 3/uL Normal 0.83-4.51 [facility] Comment on above: Performed By: #### L 503.6005, L500.4050, L300.4310, L300.3900, L100.0100 ####[facility] [address] [place], [address] Absolute Neut 9.6 X10 3/uL High 2.0-7.7 [facility] Comment on above: Performed By: #### L 503.6005, L500.4050, L300.4310, L300.3900, L100.0100 ####[facility] [address] [place], [address] Basophils/100 WBC (Bld) 0.4 % Normal 0-1 [facility] Comment on above: Performed By: #### L 503.6005, L500.4050, L300.4310, L300.3900, L100.0100 ####[facility] [address] [place], [address] Eosinophils/100 WBC (Bld) 0.2 % Normal 0-5 [facility] Comment on above: Performed By: #### L 503.6005, L500.4050, L300.4310, L300.3900, L100.0100 ####[facility] [address] [place], [address] Erythrocyte distribution width (RBC) [Ratio] 13.8 % Normal 11.6-14.6 [facility] Comment on above: Performed By: #### L 503.6005, L500.4050, L300.4310, L300.3900, L100.0100 ####[facility] [address] [place], [address] Hematocrit (Bld) [Volume fraction] 44.6 % Normal 37-47 [facility] Comment on above: Performed By: #### L 503.6005, L500.4050, L300.4310, L300.3900, L100.0100 ####[facility] [address] [place], [address] Hemoglobin (Bld) [Mass/Vol] 14.7 g/dL Normal 12.0-15.0 [facility] Comment on above: Performed By: #### L 503.6005, L500.4050, L300.4310, L300.3900, L100.0100 ####[facility] [address] [place], [address] IG% 0.400 Normal 0.0-0.9 [facility] Comment on above: Result Comment: IG% - Immature Granulocytes (promyelocytes, myelocytes andmetamyelocytes) > 1% indicates that a LEFT SHIFT is Present. Performed By: #### L 503.6005, L500.4050, L300.4310, L300.3900, L100.0100 ####[facility] [address] [place], [address] Lymphocytes/100 WBC (Bld) 11.8 % Low 19-41 [facility] Comment on above: Performed By: #### L 503.6005, L500.4050, L300.4310, L300.3900, L100.0100 ####[facility] [address] [place], [address] MCH (RBC) [Entitic mass] 29.8 pg Normal 27.0-32.0 [facility] Comment on above: Performed By: #### L 503.6005, L500.4050, L300.4310, L300.3900, L100.0100 ####[facility] [address] [place], [address] MCHC (RBC) [Mass/Vol] 33.0 g/dL Normal 32-36 [facility] Comment on above: Performed By: #### L 503.6005, L500.4050, L300.4310, L300.3900, L100.0100 ####[facility] [address] [place], [address] MCV (RBC) [Entitic vol] 90.3 fL Normal 81-99 [facility] Comment on above: Performed By: #### L 503.6005, L500.4050, L300.4310, L300.3900, L100.0100 ####[facility] [address] [place], [address] Monocytes/100 WBC (Bld) 5.6 % Normal 0-10 [facility] Comment on above: Performed By: #### L 503.6005, L500.4050, L300.4310, L300.3900, L100.0100 ####[facility] [address] [place], [address] Neutrophils/100 WBC (Bld) 81.6 % High 47-70 [facility] Comment on above: Performed By: #### L 503.6005, L500.4050, L300.4310, L300.3900, L100.0100 ####[facility] [address] [place], [address] Nucleated RBC (Bld) [#/Vol] 0 10*3/uL Normal 0-5 [facility] Comment on above: Performed By: #### L 503.6005, L500.4050, L300.4310, L300.3900, L100.0100 ####[facility] [address] [place], [address] Platelet mean volume (Bld) [Entitic vol] 8.4 fL Normal 6.2-12.0 [facility] Comment on above: Performed By: #### L 503.6005, L500.4050, L300.4310, L300.3900, L100.0100 ####[facility] [address] [place], [address] Platelets (Bld) [#/Vol] 234 10*3/uL Normal 150-450 [facility] Comment on above: Performed By: #### L 503.6005, L500.4050, L300.4310, L300.3900, L100.0100 ####[facility] [address] [place], [address] RBC (Bld) [#/Vol] 4.94 10*6/uL Normal 4.2-5.4 [facility] Comment on above: Performed By: #### L 503.6005, L500.4050, L300.4310, L300.3900, L100.0100 ####[facility] [address] [place], [address] RDW SD 45.6 fl High 35.1-43.9 [facility] Comment on above: Performed By: #### L 503.6005, L500.4050, L300.4310, L300.3900, L100.0100 ####[facility] [address] [place], [address] WBC (Bld) [#/Vol] 11.7 10*3/uL High 4.4-11.0 [facility] Comment on above: Performed By: #### L 503.6005, L500.4050, L300.4310, L300.3900, L100.0100 ####[facility] [address] [place], [address] Carbon dioxide measurementOr dered By: Cesar Barbour on 04-30-2024 CO2 [Moles/Vol] 27.0 mmol/L 21.0-32.0 [facility] Chloride measurementOrdered By: Cesar Barbour on 04-30-2024 Chloride [Moles/Vol] 106 mmol/L 98-107 [facility] Comprehensive Metabolic Prof ilon 04-30-2024 Albumin [Mass/Vol] 4.2 g/dL Normal 3.2-5.0 [facility] Comment on above: Performed By: #### L 503.6005, L500.4050, L300.4310, L300.3900, L100.0100 ####[facility] [address] [place], [address] Albumin/Globulin [Mass ratio] 1.2 {ratio} Normal 0.9-2.4 [facility] Comment on above: Performed By: #### L 503.6005, L500.4050, L300.4310, L300.3900, L100.0100 ####[facility] [address] [place], [address] ALK P 69 U/L Normal 45-117 [facility] Comment on above: Performed By: #### L 503.6005, L500.4050, L300.4310, L300.3900, L100.0100 ####[facility] [address] [place], [address] ALT [Catalytic activity/Vol] 22 U/L Normal 13-56 [facility] Comment on above: Performed By: #### L 503.6005, L500.4050, L300.4310, L300.3900, L100.0100 ####[facility] [address] [place], [address] AST [Catalytic activity/Vol] 19 U/L Normal 15-37 [facility] Comment on above: Performed By: #### L 503.6005, L500.4050, L300.4310, L300.3900, L100.0100 ####[facility] [address] [place], [address] Bilirubin [Mass/Vol] 0.90 mg/dL Normal 0.20-1.00 [facility] Comment on above: Result Comment: For patients on eltrombopag therapy, use of Dimension [place] TBIL is not recommended. Performed By: #### L 503.6005, L500.4050, L300.4310, L300.3900, L100.0100 ####[facility] [address] [place], [address] BUN/CRE 11.6 RATIO Normal 10-20 [facility] Comment on above: Performed By: #### L 503.6005, L500.4050, L300.4310, L300.3900, L100.0100 ####[facility] [address] [place], [address] CA,Total 9.3 mg/dL Normal 8.5-10.1 [facility] Comment on above: Performed By: #### L 503.6005, L500.4050, L300.4310, L300.3900, L100.0100 ####[facility] [address] [place], [address] Chloride [Moles/Vol] 106 mmol/L Normal 98-107 [facility] Comment on above: Performed By: #### L 503.6005, L500.4050, L300.4310, L300.3900, L100.0100 ####[facility] [address] [place], [address] CO2 [Moles/Vol] 27.0 mmol/L Normal 21.0-32.0 [facility] Comment on above: Performed By: #### L 503.6005, L500.4050, L300.4310, L300.3900, L100.0100 ####[facility] [address] [place], [address] Creatinine [Mass/Vol] 1.21 mg/dL High 0.55-1.02 [facility] Comment on above: Result Comment: The validity of the calculated GFR GFRAA in patients over70 years has not been determined. Clinical correlation isessential. Performed By: #### L 503.6005, L500.4050, L300.4310, L300.3900, L100.0100 ####[facility] [address] [place], [address] ECRCL 39.87 ml/min Normal [facility] Comment on above: Performed By: #### L 503.6005, L500.4050, L300.4310, L300.3900, L100.0100 ####[facility] [address] [place], [address] EST GFR - AA 57 mL/min Low >60 [facility] Comment on above: Result Comment: Afri can [place] GFR Calc Performed By: #### L 503.6005, L500.4050, L300.4310, L300.3900, L100.0100 ####[facility] [address] [place], [address] GAP 5 Normal 5-15 [facility] Comment on above: Performed By: #### L 503.6005, L500.4050, L300.4310, L300.3900, L100.0100 ####[facility] [address] [place], [address] GFR/1.73 sq M.predicted among non-blacks MDRD (S/P/Bld) [Vol rate/Area] 47 mL/min/{1.73_m2} Low >60 [facility] Comment on above: Result Comment: Non- GFR Calc Performed By: #### L 503.6005, L500.4050, L300.4310, L300.3900, L100.0100 ####[facility] [address] [place], [address] Globulin (S) [Mass/Vol] 3.4 g/dL Normal 2.2-4.2 [facility] Comment on above: Performed By: #### L 503.6005, L500.4050, L300.4310, L300.3900, L100.0100 ####[facility] [address] [place], [address] Glucose [Mass/Vol] 111 mg/dL High 74-106 [facility] Comment on above: Result Comment: Fast ing Glucose result from 100 to 125 mg/dLsuggests IMPAIRED HOMEOSTASIS per A.D.A. criteria. Performed By: #### L 503.6005, L500.4050, L300.4310, L300.3900, L100.0100 ####[facility] [address] [place], [address] Potassium [Moles/Vol] 4.3 mmol/L Normal 3.5-5.1 [facility] Comment on above: Performed By: #### L 503.6005, L500.4050, L300.4310, L300.3900, L100.0100 ####[facility] [address] [place], [address] Sodium [Moles/Vol] 138 mmol/L Normal 136-145 [facility] Comment on above: Performed By: #### L 503.6005, L500.4050, L300.4310, L300.3900, L100.0100 ####[facility] [address] [place], [address] T PROT 7.6 g/dL Normal 6.4-8.2 [facility] Comment on above: Performed By: #### L 503.6005, L500.4050, L300.4310, L300.3900, L100.0100 ####[facility] [address] [place], [address] Urea nitrogen [Mass/Vol] 14 mg/dL Normal 7-18 [facility] Comment on above: Performed By: #### L 503.6005, L500.4050, L300.4310, L300.3900, L100.0100 ####[facility] [address] [place], [address] Emergency Department Summary on 04-30-2024 Emergency Department Summary Normal [facility] Eosinophil percentageOrdered By: Cesar Barbour on 04-30-2024 Eosinophils/100 WBC (Bld) 0.2 % 0-5 [facility] Epithelial cells.squamous LM Ql (Urine sed)Ordered By: Cesar Barbour on 04-30-2024 Epithelial cells.squamous LM.HPF (Urine sed) [#/Area] 0 /[HPF] 5-10 [facility] Erythrocyte distribution wid th ratioOrdered By: Cesar Barbour on 04-30-2024 Erythrocyte distribution width (RBC) [Ratio] 13.8 % 11.6-14.6 [facility] Erythrocyte distribution wid th standard deviationOrdered By: Cesar Barbour on 04-30-2024 Erythrocyte distribution width (RBC) [Entitic vol] 45.6 fL High 35.1-43.9 [facility] Erythrocyte distribution width (RBC) [Ratio] 45.6 fl High 35.1-43.9 [facility] Estimated glomerular filtrat ion rate (GFR) AmericanOrdered By: Cesar Barbour on 04-30-2024 Estimated GFR (MDRD) Amer 57 mL/min Low >60 [facility] Comment on above: GFR Calc Estimation of creatinine ximena aranceOrdered By: Cesar Barbour on 04-30-2024 Estimated Creatinine Clearance Calc 39.87 ml/min [facility] Glomerular filtration rate ( GFR) estimationOrdered By: Cesar Barbour on 04-30-2024 Estimated GFR (MDRD) Non-Af Amer 47 mL/min Low >60 [facility] Comment on above: Non- GFR Calc GFR/1.73 sq M.predicted among non-blacks MDRD (S/P/Bld) [Vol rate/Area] 47 mL/min/{1.73_m2} Low >60 [facility] Comment on above: Non- GFR Calc Glucose Ql (U)Ordered By: Harman Barbour on 01-14-2025 Urine Glucose (UA) Normal mg/dl Normal [facility] Glucose measurementOrdered B y: Cesar Barbour on 04-30-2024 Glucose [Mass/Vol] 111 mg/dL High 74-106 [facility] Comment on above: Fasting Glucose resu lt from 100 to 125 mg/dL suggests IMPAIRED HOMEOSTASIS per A.D.A. criteria. Hematocrit Auto (Bld) [Volum e fraction]Ordered By: Cesar Barbour on 04-30-2024 Hematocrit (Bld) [Volume fraction] 44.6 % 37-47 [facility] Hemoglobin measurementOrdere d By: Cesar Barbour on 04-30-2024 Hemoglobin (Bld) [Mass/Vol] 14.7 g/dL 12.0-15.0 [facility] Immature granulocytes/100 WB C Auto (Bld)Ordered By: Cesar Barbour on 04-30-2024 Immature granulocytes/100 WBC (Bld) 0.400 % 0.0-0.9 [facility] Comment on above: IG% - Immature Granu locytes (promyelocytes, myelocytes and metamyelocytes) > 1% indicates that a LEFT SHIFT is Present. International normalized rat io (INR) calculationOrdered By: Cesar Barbour on 04-30-2024 INR Coag (Bld) [Relative time] 1.0 {INR} [facility] Ketones Test strip Ql (U)Ord ered By: Cesar Barbour on 04-30-2024 Ketones Ql (U) Negative Negative [facility] Laboratory - Chemistry and C hemistry - challengeOrdered By: Cesar Barbour on 04-30-2024 AST [Catalytic activity/Vol] 19 U/L 15-37 [facility] Lactic Acidon 04-30-2024 Lactate [Moles/Vol] 1.3 mmol/L Normal 0.4-1.9 [facility] Comment on above: Order Comment: Y Performed By: #### L 503.6005, L500.4050, L300.4310, L300.3900, L100.0100 ####[facility] [address] [place], [place], [address] Lactic acid measurementOrder ed By: Cesar Barbour on 04-30-2024 Lactate [Moles/Vol] 1.3 mmol/L 0.4-2.0 [facility] Lymphocytes Auto (Unsp spec) [#/Vol]Ordered By: Cesar Barbour on 04-30-2024 Lymphocytes (Bld) [#/Vol] 1.38 10*3/uL 0.83-4.51 [facility] Lymphocytes/100 WBC Auto (Un sp spec)Ordered By: Cesar Barbour on 04-30-2024 Lymphocytes/100 WBC (Bld) 11.8 % Low 19-41 [facility] MCV (mean corpuscular volume ) determinationOrdered By: Cesar Barbour on 04-30-2024 MCV (RBC) [Entitic vol] 90.3 fL 81-99 [facility] Mean corpuscular hemoglobin (MCH) determinationOrdered By: Cesar Barbour on 04-30-2024 MCH (RBC) [Entitic mass] 29.8 pg 27.0-32.0 [facility] Mean corpuscular hemoglobin concentration (MCHC) determinationOrdered By: Cesar Barbour on 04-30-2024 MCHC (RBC) [Mass/Vol] 33.0 g/dL 32-36 [facility] Mean platelet volume determi nationOrdered By: Cesar Barbour on 04-30-2024 Platelet mean volume (Bld) [Entitic vol] 8.4 fL 6.2-12.0 [facility] Microscopic analysis of urin e for red blood cells (RBC)Ordered By: Cesar Barbour on 04-30-2024 Microscopic analysis of urine for red blood cells (RBC) 0 SEEN /hpf 0-5 [facility] Urine RBC 0 SEEN /hpf 0-5 [facility] Monocyte percentageOrdered B y: Cesar Barbour on 04-30-2024 Monocytes/100 WBC (Bld) 5.6 % 0-10 [facility] Mucus LM Ql (Urine sed)Order ed By: Cesar Barbour on 04-30-2024 Mucus Ql (Urine sed) 0 SEEN /hpf [facility] Neutrophil percentageOrdered By: Cesar Barbour on 04-30-2024 Neutrophils/100 WBC (Bld) 81.6 % High 47-70 [facility] Nitrite Test strip Ql (U)Ord ered By: Cesar Barbour on 04-30-2024 Nitrite Ql (U) Negative Negative [facility] Nucleated red blood cell per centageOrdered By: Cesar Barbour on 04-30-2024 Nucleated RBC/100 WBC (Bld) [Ratio] 0 % 0-5 [facility] Partial Thromboplast Timeon 04-30-2024 aPTT Coag (Bld) [Time] 24.1 s Normal 24.1-36.2 [facility] Comment on above: Performed By: #### L 503.6005, L500.4050, L300.4310, L300.3900, L100.0100 ####[facility] [address] [place], [address] Platelet countOrdered By: Harman Barbour on 04-30-2024 Platelets (Bld) [#/Vol] 234 10*3/uL 150-450 [facility] Potassium measurementOrdered By: Cesar Barbour on 04-30-2024 Potassium [Moles/Vol] 4.3 mmol/L 3.5-5.1 [facility] Protein Test strip Ql (U)Ord ered By: Cesar Barbour on 04-30-2024 Protein Ql (U) Negative Negative [facility] Prothrombin Time w/INRon INR Coag (PPP) [Relative time] 1.0 {INR} Normal [facility] Comment on above: Performed By: #### L 503.6005, L500.4050, L300.4310, L300.3900, L100.0100 ####[facility] [address] [place], [address] PT Coag (PPP) [Time] 13.0 s Normal 11.7-14.9 [facility] Comment on above: Performed By: #### L 503.6005, L500.4050, L300.4310, L300.3900, L100.0100 ####[facility] [address] [place], [address] Prothrombin timeOrdered By: Cesar Barbour on 04-30-2024 PT Coag (PPP) [Time] 13.0 s 11.7-14.9 [facility] RBC Auto (Bld) [#/Vol]Ordere d By: Cesar Barbour on 04-30-2024 RBC (Bld) [#/Vol] 4.94 10*6/uL 4.2-5.4 [facility] Serum anion gap measurementO rdered By: Cesar Barbour on 04-30-2024 Anion gap [Moles/Vol] 5 mmol/L 5-15 [facility] Serum globulin measurementOr dered By: Cesar Barbour on 04-30-2024 Globulin (S) [Mass/Vol] 3.4 g/dL 2.2-4.2 [facility] Serum or plasma alanine lam otransferase (ALT) measurementOrdered By: Cesar Barbour on 04-30-2024 ALT [Catalytic activity/Vol] 22 U/L 13-56 [facility] Serum or plasma albumin nicole urement (mass/volume)Ordered By: Cesar Barbour on 04-30-2024 Albumin [Mass/Vol] 4.2 g/dL 3.2-5.0 [facility] Serum or plasma alkaline natanael sphatase measurementOrdered By: Cesar Barbour on 04-30-2024 ALP [Catalytic activity/Vol] 69 U/L 45-117 [facility] Serum or plasma calcium nicole urement (mass/volume)Ordered By: Cesar Barbour on 04-30-2024 Calcium [Mass/Vol] 9.3 mg/dL 8.5-10.1 [facility] Serum or plasma creatinine m easurement (mass/volume)Ordered By: Cesar Barbour on 04-30-2024 Creatinine [Mass/Vol] 1.21 mg/dL High 0.55-1.02 [facility] Comment on above: The validity of the calculated GFR & GFRAA in patients over 70 years has not been determined. Clinical correlation is essential. Serum or plasma urea nitroge n measurement (mass/volume)Ordered By: Cesar Barbour on 04-30-2024 Urea nitrogen [Mass/Vol] 14 mg/dL 7-18 [facility] Sodium levelOrdered By: Cesar Barbour on 04-30-2024 Sodium [Moles/Vol] 138 mmol/L 136-145 [facility] Squamous epithelial cells de tection in urine sediment by light microscopyOrdered By: Cesar Barbour on 04-30-2024 Epithelial cells.squamous LM Ql (Urine sed) 0-5 SEEN /hpf 5-10 [facility] Total proteinOrdered By: Rafaela Barbour on 04-30-2024 Protein [Mass/Vol] 7.6 g/dL 6.4-8.2 [facility] Urinalysis, Completeon 04-30 EPI,SQUAMOUS 0-5 SEEN Normal 5-10 [facility] Comment on above: Order Comment: SHELLEY CTOR TO SPECIFY Performed By: #### L 400.0001 ####[facility] [address] [place], [address] BACTERIA 0 SEEN Normal None Seen [facility] Comment on above: Order Comment: SHELLEY CTOR TO SPECIFY Performed By: #### L 400.0001 ####[facility] [address] [place], [address] Mucus Ql (Urine sed) 0 SEEN Normal [facility] Comment on above: Order Comment: SHELLEY CTOR TO SPECIFY Performed By: #### L 400.0001 ####[facility] [address] [place], [address] RBC 0 SEEN Normal 0-5 [facility] Comment on above: Order Comment: SHELLEY CTOR TO SPECIFY Performed By: #### L 400.0001 ####[facility] [address] [place], [address] WBC 0 SEEN Normal 0-5 [facility] Comment on above: Order Comment: SHELLEY CTOR TO SPECIFY Performed By: #### L 400.0001 ####[facility] [address] [place], [address] Urine blood detectionOrdered By: Cesar Barbour on 04-30-2024 Urine Occult Blood 10 /ul High Negative [facility] Urine clarityOrdered By: Rafaela Barbour on 04-30-2024 Clarity (U) Clear Clear [facility] Urine color determinationOrd ered By: Cesar Barbour on 04-30-2024 Color (U) Yellow Yellow [facility] Urine glucose detectionOrder ed By: Cesar Barbour on 04-30-2024 Glucose Ql (U) Normal mg/dl Normal [facility] Urine leukocyte esterase det ection by dipstickOrdered By: Cesar Barbour on 04-30-2024 Leukocyte esterase Test strip Ql (U) Negative Negative [facility] Urine pHOrdered By: Cesar loco on 04-30-2024 pH (U) 6.5 [pH] 5.0 - 8.0 [facility] Urine sediment bacteria coun t by microscopy (number/high power field)Ordered By: Cesar Barbour on 04-30-2024 Bacteria LM.HPF (Urine sed) [#/Area] 0 /[HPF] None Seen [facility] Urine specific gravity measu rementOrdered By: Cesar Barbour on 04-30-2024 Specific gravity (U) [Rel density] 1.010 1.002-1.030 [facility] Urine urobilinogen measureme ntOrdered By: Cesar Barbour on 04-30-2024 Urobilinogen Ql (U) Normal mg/dl Normal [facility] Urobilinogen Ql (U)Ordered B y: Cesar Barbour on 04-30-2024 Urine Urobilinogen Normal mg/dl Normal [facility] White blood cell (WBC) count Ordered By: Cesar Barbour on 04-30-2024 WBC (Bld) [#/Vol] 11.7 10*3/uL High 4.4-11.0 [facility] White blood cell countOrdere d By: Cesar Barbour on 04-30-2024 Urine WBC 0 SEEN /hpf 0-5 [facility] White blood cell count 0 SEEN /hpf 0-5 W [facility] aPTT Coag (PPP) [Time]Ordere d By: Cesar Barbour on 04-30-2024 aPTT Coag (Bld) [Time] 24.1 s 24.1-36.2 [facility] Abdomen/Pelvis W IV Cont ONL Yon 04-29-2024 Abdomen/Pelvis W IV Cont ONLY Normal [facility] Absolute neutrophil countOrd ered By: Blas CotaEstelle on 04-29-2024 Neutrophils (Bld) [#/Vol] 9.1 10*3/uL High 2.0-7.7 [facility] Albumin to globulin ratioOrd ered By: Blasdez Chi on 04-29-2024 Albumin/Globulin [Mass ratio] 1.1 {ratio} 0.9-2.4 [facility] Basophil percentageOrdered B y: Blas Alon on 04-29-2024 Basophils/100 WBC (Bld) 0.3 % 0-1 [facility] Bilirubin Test strip Ql (U)O rdered By: Blasdez Chi on 04-29-2024 Bilirubin Ql (U) Negative Negative [facility] Bilirubin, totalOrdered By: Blasdez Chi on 04-29-2024 Bilirubin [Mass/Vol] 1.20 mg/dL High 0.20-1.00 [facility] Comment on above: For patients on eltr ombopag therapy, use of Dimension [place] TBIL is not recommended. Blood urea nitrogen (BUN)/cr eatinine ratioOrdered By: Blas Chi on 04-29-2024 Urea nitrogen/Creatinine [Mass ratio] 8.8 mg/mg Low 10-20 [facility] CBC W/Diff, Automatedon 04-17 Absolute Lymph 1.84 X10 3/uL Normal 0.83-4.51 [facility] Comment on above: Performed By: #### L 501.2450, L500.4050, L100.0100 ####[facility] [address] [place], [address] Absolute Neut 9.1 X10 3/uL High 2.0-7.7 [facility] Comment on above: Performed By: #### L 501.2450, L500.4050, L100.0100 ####[facility] [address] [place], [address] Basophils/100 WBC (Bld) 0.3 % Normal 0-1 [facility] Comment on above: Performed By: #### L 501.2450, L500.4050, L100.0100 ####[facility] [address] [place], [address] Eosinophils/100 WBC (Bld) 0.1 % Normal 0-5 [facility] Comment on above: Performed By: #### L 501.2450, L500.4050, L100.0100 ####[facility] [address] [place], [address] Erythrocyte distribution width (RBC) [Ratio] 13.8 % Normal 11.6-14.6 [facility] Comment on above: Performed By: #### L 501.2450, L500.4050, L100.0100 ####[facility] [address] [place], [address] Hematocrit (Bld) [Volume fraction] 45.5 % Normal 37-47 [facility] Comment on above: Performed By: #### L 501.2450, L500.4050, L100.0100 ####[facility] [address] [place], [address] Hemoglobin (Bld) [Mass/Vol] 15.3 g/dL High 12.0-15.0 [facility] Comment on above: Performed By: #### L 501.2450, L500.4050, L100.0100 ####[facility] [address] [place], [address] IG% 0.500 Normal 0.0-0.9 [facility] Comment on above: Result Comment: IG% - Immature Granulocytes (promyelocytes, myelocytes andmetamyelocytes) > 1% indicates that a LEFT SHIFT is Present. Performed By: #### L 501.2450, L500.4050, L100.0100 ####[facility] [address] [place], [address] Lymphocytes/100 WBC (Bld) 15.5 % Low 19-41 [facility] Comment on above: Performed By: #### L 501.2450, L500.4050, L100.0100 ####[facility] [address] [place], [address] MCH (RBC) [Entitic mass] 30.2 pg Normal 27.0-32.0 [facility] Comment on above: Performed By: #### L 501.2450, L500.4050, L100.0100 ####[facility] [address] [place], [address] MCHC (RBC) [Mass/Vol] 33.6 g/dL Normal 32-36 [facility] Comment on above: Performed By: #### L 501.2450, L500.4050, L100.0100 ####[facility] [address] [place], [address] MCV (RBC) [Entitic vol] 89.7 fL Normal 81-99 [facility] Comment on above: Performed By: #### L 501.2450, L500.4050, L100.0100 ####[facility] [address] [place], [address] Monocytes/100 WBC (Bld) 6.5 % Normal 0-10 [facility] Comment on above: Performed By: #### L 501.2450, L500.4050, L100.0100 ####[facility] [address] [place], [address] Neutrophils/100 WBC (Bld) 77.1 % High 47-70 [facility] Comment on above: Performed By: #### L 501.2450, L500.4050, L100.0100 ####[facility] [address] [place], [address] Nucleated RBC (Bld) [#/Vol] 0 10*3/uL Normal 0-5 [facility] Comment on above: Performed By: #### L 501.2450, L500.4050, L100.0100 ####[facility] [address] [place], [address] Platelet mean volume (Bld) [Entitic vol] 8.5 fL Normal 6.2-12.0 [facility] Comment on above: Performed By: #### L 501.2450, L500.4050, L100.0100 ####[facility] [address] [place], [address] Platelets (Bld) [#/Vol] 272 10*3/uL Normal 150-450 [facility] Comment on above: Performed By: #### L 501.2450, L500.4050, L100.0100 ####[facility] [address] [place], [address] RBC (Bld) [#/Vol] 5.07 10*6/uL Normal 4.2-5.4 [facility] Comment on above: Performed By: #### L 501.2450, L500.4050, L100.0100 ####[facility] [address] [place], [address] RDW SD 44.9 fl High 35.1-43.9 [facility] Comment on above: Performed By: #### L 501.2450, L500.4050, L100.0100 ####[facility] [address] [place], [address] WBC (Bld) [#/Vol] 11.9 10*3/uL High 4.4-11.0 [facility] Comment on above: Performed By: #### L 501.2450, L500.4050, L100.0100 ####[facility] [address] [place], [address] Carbon dioxide measurementOr dered By: Blas Chi on 04-29-2024 CO2 [Moles/Vol] 24.0 mmol/L 21.0-32.0 [facility] Chloride measurementOrdered By: Blas Chi on 04-29-2024 Chloride [Moles/Vol] 102 mmol/L 98-107 [facility] Comprehensive Metabolic Prof ilon 04-29-2024 Albumin [Mass/Vol] 4.3 g/dL Normal 3.2-5.0 [facility] Comment on above: Performed By: #### L 501.2450, L500.4050, L100.0100 ####[facility] [address] [place], [address] Albumin/Globulin [Mass ratio] 1.1 {ratio} Normal 0.9-2.4 [facility] Comment on above: Performed By: #### L 501.2450, L500.4050, L100.0100 ####[facility] [address] [place], [address] ALK P 66 U/L Normal 45-117 [facility] Comment on above: Performed By: #### L 501.2450, L500.4050, L100.0100 ####[facility] [address] [place], [address] ALT [Catalytic activity/Vol] 21 U/L Normal 13-56 [facility] Comment on above: Performed By: #### L 501.2450, L500.4050, L100.0100 ####[facility] [address] [place], [address] AST [Catalytic activity/Vol] 25 U/L Normal 15-37 [facility] Comment on above: Performed By: #### L 501.2450, L500.4050, L100.0100 ####[facility] [address] [place], [address] Bilirubin [Mass/Vol] 1.20 mg/dL High 0.20-1.00 [facility] Comment on above: Result Comment: For patients on eltrombopag therapy, use of Dimension [place] TBIL is not recommended. Performed By: #### L 501.2450, L500.4050, L100.0100 ####[facility] [address] [place], [address] BUN/CRE 8.8 RATIO Low 10-20 [facility] Comment on above: Performed By: #### L 501.2450, L500.4050, L100.0100 ####[facility] [address] [place], [address] CA,Total 9.4 mg/dL Normal 8.5-10.1 [facility] Comment on above: Performed By: #### L 501.2450, L500.4050, L100.0100 ####[facility] [address] [place], [address] Chloride [Moles/Vol] 102 mmol/L Normal 98-107 [facility] Comment on above: Performed By: #### L 501.2450, L500.4050, L100.0100 ####[facility] [address] [place], [address] CO2 [Moles/Vol] 24.0 mmol/L Normal 21.0-32.0 [facility] Comment on above: Performed By: #### L 501.2450, L500.4050, L100.0100 ####[facility] [address] [place], [address] Creatinine [Mass/Vol] 1.25 mg/dL High 0.55-1.02 [facility] Comment on above: Result Comment: The validity of the calculated GFR GFRAA in patients over70 years has not been determined. Clinical correlation isessential. Performed By: #### L 501.2450, L500.4050, L100.0100 ####[facility] [address] [place], [address] ECRCL 38.10 ml/min Normal [facility] Comment on above: Performed By: #### L 501.2450, L500.4050, L100.0100 ####[facility] [address] [place], [address] EST GFR - AA 55 mL/min Low >60 [facility] Comment on above: Result Comment: Afri can [place] GFR Calc Performed By: #### L 501.2450, L500.4050, L100.0100 ####[facility] [address] [place], [address] GAP 9 Normal 5-15 [facility] Comment on above: Performed By: #### L 501.2450, L500.4050, L100.0100 ####[facility] [address] [place], [address] GFR/1.73 sq M.predicted among non-blacks MDRD (S/P/Bld) [Vol rate/Area] 46 mL/min/{1.73_m2} Low >60 [facility] Comment on above: Result Comment: Non- GFR Calc Performed By: #### L 501.2450, L500.4050, L100.0100 ####[facility] [address] [place], [address] Globulin (S) [Mass/Vol] 3.9 g/dL Normal 2.2-4.2 [facility] Comment on above: Performed By: #### L 501.2450, L500.4050, L100.0100 ####[facility] [address] [place], [address] Glucose [Mass/Vol] 132 mg/dL High 74-106 [facility] Comment on above: Result Comment: Fast ing Glucose result greater than or equal to 126 mg/dLsuggests DIABETES MELLITUS per A.D.A. criteria. Performed By: #### L 501.2450, L500.4050, L100.0100 ####[facility] [address] [place], [address] Potassium [Moles/Vol] 3.9 mmol/L Normal 3.5-5.1 [facility] Comment on above: Performed By: #### L 501.2450, L500.4050, L100.0100 ####[facility] [address] [place], [address] Sodium [Moles/Vol] 135 mmol/L Low 136-145 [facility] Comment on above: Performed By: #### L 501.2450, L500.4050, L100.0100 ####[facility] [address] [place], [address] T PROT 8.2 g/dL Normal 6.4-8.2 [facility] Comment on above: Performed By: #### L 501.2450, L500.4050, L100.0100 ####[facility] [address] [place], [address] Urea nitrogen [Mass/Vol] 11 mg/dL Normal 7-18 [facility] Comment on above: Performed By: #### L 501.2450, L500.4050, L100.0100 ####[facility] [address] [place], [address] Emergency Department Summary on 04-29-2024 Emergency Department Summary Normal [facility] Eosinophil percentageOrdered By: Blas Chi on 04-29-2024 Eosinophils/100 WBC (Bld) 0.1 % 0-5 [facility] Epithelial cells.squamous LM Ql (Urine sed)Ordered By: Blas Chi on 04-29-2024 Epithelial cells.squamous LM.HPF (Urine sed) [#/Area] 0 /[HPF] 5-10 [facility] Erythrocyte distribution wid th ratioOrdered By: Blas Chi on 04-29-2024 Erythrocyte distribution width (RBC) [Ratio] 13.8 % 11.6-14.6 [facility] Erythrocyte distribution wid th standard deviationOrdered By: Blas Hoffman on 04-29-2024 Erythrocyte distribution width (RBC) [Entitic vol] 44.9 fL High 35.1-43.9 [facility] Estimated glomerular filtrat ion rate (GFR) AmericanOrdered By: Blas Chi on 04-29-2024 Estimated GFR (MDRD) Amer 55 mL/min Low >60 [facility] Comment on above: GFR Calc Estimation of creatinine ximena aranceOrdered By: Blas Chi on 04-29-2024 Estimated Creatinine Clearance Calc 38.10 ml/min [facility] Glomerular filtration rate ( GFR) estimationOrdered By: Blas Chi on 04-29-2024 Estimated GFR (MDRD) Non-Af Amer 46 mL/min Low >60 [facility] Comment on above: Non- GFR Calc Glucose Ql (U)Ordered By: Adrian Chi on 04-29-2024 Urine Glucose (UA) Normal mg/dl Normal [facility] Glucose measurementOrdered B y: Blas Chi on 04-29-2024 Glucose [Mass/Vol] 132 mg/dL High 74-106 [facility] Comment on above: Fasting Glucose resu lt greater than or equal to 126 mg/dL suggests DIABETES MELLITUS per A.D.A. criteria. Hematocrit Auto (Bld) [Volum e fraction]Ordered By: Blas Chi on 04-29-2024 Hematocrit (Bld) [Volume fraction] 45.5 % 37-47 [facility] Hemoglobin measurementOrdere d By: Blas Chi on 04-29-2024 Hemoglobin (Bld) [Mass/Vol] 15.3 g/dL High 12.0-15.0 [facility] Immature granulocytes/100 WB C Auto (Bld)Ordered By: Blas Chi on 04-29-2024 Immature granulocytes/100 WBC (Bld) 0.500 % 0.0-0.9 [facility] Comment on above: IG% - Immature Granu locytes (promyelocytes, myelocytes and metamyelocytes) > 1% indicates that a LEFT SHIFT is Present. Ketones Test strip Ql (U)Ord ered By: Blas Chi on 04-29-2024 Ketones Ql (U) Negative Negative [facility] Laboratory - Chemistry and C hemistry - challengeOrdered By: Blas Chi on 04-29-2024 AST [Catalytic activity/Vol] 25 U/L 15-37 [facility] Lipaseon 04-29-2024 Lipase [Catalytic activity/Vol] 38 U/L Normal 13-75 [facility] Comment on above: Result Comment: Plea se note:LIPASE revised reference range effective 22.New Lipase methodology. Expected to produce lower valuesthan the previous assay method.NEW Reference Range: 13 - 75 U/L Performed By: #### L 501.2450, L500.4050, L100.0100 ####[facility] [address] [place], [place], [address] Lipase measurementOrdered By : Blas Chi on 04-29-2024 Lipase [Catalytic activity/Vol] 38 U/L 13-75 [facility] Comment on above: Please note:LIPASE r evised reference range effective 22. New Lipase methodology. Expected to produce lower values than the previous assay method. NEW Reference Range: 13 - 75 U/L Lymphocytes Auto (Unsp spec) [#/Vol]Ordered By: Blas Chi on 04-29-2024 Lymphocytes (Bld) [#/Vol] 1.84 10*3/uL 0.83-4.51 [facility] Lymphocytes/100 WBC Auto (Un sp spec)Ordered By: Blas Chi on 04-29-2024 Lymphocytes/100 WBC (Bld) 15.5 % Low 19-41 [facility] MCV (mean corpuscular volume ) determinationOrdered By: Blas Chi on 04-29-2024 MCV (RBC) [Entitic vol] 89.7 fL 81-99 [facility] Mean corpuscular hemoglobin (MCH) determinationOrdered By: Blas Chi on 04-29-2024 MCH (RBC) [Entitic mass] 30.2 pg 27.0-32.0 [facility] Mean corpuscular hemoglobin concentration (MCHC) determinationOrdered By: Blas Chi on 04-29-2024 MCHC (RBC) [Mass/Vol] 33.6 g/dL 32-36 [facility] Mean platelet volume determi nationOrdered By: Blas Chi on 04-29-2024 Platelet mean volume (Bld) [Entitic vol] 8.5 fL 6.2-12.0 [facility] Microscopic analysis of urin e for red blood cells (RBC)Ordered By: Blas Chi on 04-29-2024 Urine RBC 0 SEEN /hpf 0-5 [facility] Monocyte percentageOrdered B y: Blas Chi on 04-29-2024 Monocytes/100 WBC (Bld) 6.5 % 0-10 [facility] Mucus LM Ql (Urine sed)Order ed By: Blas hCi on 04-29-2024 Mucus Ql (Urine sed) 0 SEEN /hpf [facility] Neutrophil percentageOrdered By: Blas Chi on 04-29-2024 Neutrophils/100 WBC (Bld) 77.1 % High 47-70 [facility] Nitrite Test strip Ql (U)Ord ered By: Blas Chi on 04-29-2024 Nitrite Ql (U) Negative Negative [facility] Nucleated red blood cell per centageOrdered By: Blas Chi on 04-29-2024 Nucleated RBC/100 WBC (Bld) [Ratio] 0 % 0-5 [facility] Platelet countOrdered By: Adrian Chi on 04-29-2024 Platelets (Bld) [#/Vol] 272 10*3/uL 150-450 [facility] Potassium measurementOrdered By: Blas Chi on 04-29-2024 Potassium [Moles/Vol] 3.9 mmol/L 3.5-5.1 [facility] Protein Test strip Ql (U)Ord ered By: Blas Chi on 04-29-2024 Protein Ql (U) Negative Negative [facility] RBC Auto (Bld) [#/Vol]Ordere d By: Blas Chi on 04-29-2024 RBC (Bld) [#/Vol] 5.07 10*6/uL 4.2-5.4 [facility] Serum anion gap measurementO rdered By: Blas Chi on 04-29-2024 Anion gap [Moles/Vol] 9 mmol/L 5-15 [facility] Serum globulin measurementOr dered By: Blas Chi on 04-29-2024 Globulin (S) [Mass/Vol] 3.9 g/dL 2.2-4.2 [facility] Serum or plasma alanine lam otransferase (ALT) measurementOrdered By: Blas Chi on 04-29-2024 ALT [Catalytic activity/Vol] 21 U/L 13-56 [facility] Serum or plasma albumin nicole urement (mass/volume)Ordered By: Blas Hoffman on 04-29-2024 Albumin [Mass/Vol] 4.3 g/dL 3.2-5.0 [facility] Serum or plasma alkaline natanael sphatase measurementOrdered By: Blas Chi on 04-29-2024 ALP [Catalytic activity/Vol] 66 U/L 45-117 [facility] Serum or plasma calcium nicole urement (mass/volume)Ordered By: Blas Hoffman on 04-29-2024 Calcium [Mass/Vol] 9.4 mg/dL 8.5-10.1 [facility] Serum or plasma creatinine m easurement (mass/volume)Ordered By: Blas Hoffman on 04-29-2024 Creatinine [Mass/Vol] 1.25 mg/dL High 0.55-1.02 [facility] Comment on above: The validity of the calculated GFR & GFRAA in patients over 70 years has not been determined. Clinical correlation is essential. Serum or plasma urea nitroge n measurement (mass/volume)Ordered By: Blas Chi on 04-29-2024 Urea nitrogen [Mass/Vol] 11 mg/dL 7-18 [facility] Sodium levelOrdered By: Demarcus Chi on 04-29-2024 Sodium [Moles/Vol] 135 mmol/L Low 136-145 [facility] Total proteinOrdered By: Rohan Chi on 04-29-2024 Protein [Mass/Vol] 8.2 g/dL 6.4-8.2 [facility] Urinalysis, Completeon 04-29 EPI,SQUAMOUS 0-5 SEEN Normal 5-10 [facility] Comment on above: Order Comment: CLEAN CATCH Performed By: #### L 400.0001 ####[facility] [address] [place], [address] BACTERIA 0 SEEN Normal None Seen [facility] Comment on above: Order Comment: CLEAN CATCH Performed By: #### L 400.0001 ####[facility] [address] [place], [address] Mucus Ql (Urine sed) 0 SEEN Normal [facility] Comment on above: Order Comment: CLEAN CATCH Performed By: #### L 400.0001 ####[facility] [address] [place], [address] RBC 0 SEEN Normal 0-5 [facility] Comment on above: Order Comment: CLEAN CATCH Performed By: #### L 400.0001 ####[facility] [address] [place], [address] WBC 0 SEEN Normal 0-5 [facility] Comment on above: Order Comment: CLEAN CATCH Performed By: #### L 400.0001 ####[facility] [address] [place], [address] Urine blood detectionOrdered By: Blas Chi on 04-29-2024 Urine Occult Blood 25 /ul High Negative [facility] Urine clarityOrdered By: Rohan Chi on 04-29-2024 Clarity (U) Clear Clear [facility] Urine color determinationOrd ered By: Blas Chi on 04-29-2024 Color (U) Straw Yellow [facility] Urine leukocyte esterase det ection by dipstickOrdered By: Blas Chi on 04-29-2024 Leukocyte esterase Test strip Ql (U) Negative Negative [facility] Urine pHOrdered By: Blas Mccabe on 04-29-2024 pH (U) 6.5 [pH] 5.0 - 8.0 [facility] Urine sediment bacteria coun t by microscopy (number/high power field)Ordered By: Blas Chi on 04-29-2024 Bacteria LM.HPF (Urine sed) [#/Area] 0 /[HPF] None Seen [facility] Urine specific gravity measu rementOrdered By: Blas Chi on 04-29-2024 Specific gravity (U) [Rel density] 1.005 1.002-1.030 [facility] Urobilinogen Ql (U)Ordered B y: Blas Chi on 04-29-2024 Urine Urobilinogen Normal mg/dl Normal [facility] White blood cell (WBC) count Ordered By: Blas Chi on 04-29-2024 WBC (Bld) [#/Vol] 11.9 10*3/uL High 4.4-11.0 [facility] White blood cell countOrdere d By: Blas Chi on 04-29-2024 Urine WBC 0 SEEN /hpf 0-5 [facility] Basic Metabolic Profile (BMP )on 04-25-2024 BUN/CRE 14.0 RATIO Normal 10-20 [facility] Comment on above: Order Comment: Order Date: 04/24/24Order Info: [id number] - BMPDANTE DID NOT WANT THE LIPID AND TSH DONE. SHE WANTED TOTALK TO HEART DR. Performed By: #### L 500.2500, L100.0500 ####[facility] [address] [place], [address] CA,Total 9.2 mg/dL Normal 8.5-10.1 [facility] Comment on above: Order Comment: Order Date: 04/24/24Order Info: [id number] [address] DID NOT WANT THE LIPID AND TSH DONE. SHE WANTED TOTALK TO HEART DR. Performed By: #### L 500.2500, L100.0500 ####[facility] [address] [place], [address] EST GFR - AA 61 mL/min Normal >60 [facility] Comment on above: Order Comment: Order Date: 04/24/24Order Info: [id number] [address] DID NOT WANT THE LIPID AND TSH DONE. SHE WANTED TOTALK TO HEART DR. Result Comment: Afri can [place]uran GFR Calc Performed By: #### L 500.2500, L100.0500 ####[facility] [address] [place], [address] GAP 4 Low 5-15 [facility] Comment on above: Order Comment: Order Date: 04/24/24Order Info: 666 [address] NOT [facility] THE LIPID AND TSH DONE. SHE WANTED TOTALK TO HEART DR. Performed By: #### L 500.2500, L100.0500 ####[facility] [address] [place], [address] GFR/1.73 sq M.predicted among non-blacks MDRD (S/P/Bld) [Vol rate/Area] 51 mL/min/{1.73_m2} Low >60 [facility] Comment on above: Order Comment: Order Date: 04/24/24Order Info: 666 - [facility] NOT [facility] THE LIPID AND TSH DONE. SHE WANTED TOTALK TO HEART DR. Result Comment: Non- GFR Calc Performed By: #### L 500.2500, L100.0500 ####[facility] [address] [place], [address] Blood urea nitrogen (BUN)/cr eatinine ratioOrdered By: Trish Wolff on 04-25-2024 Urea nitrogen/Creatinine [Mass ratio] 14.0 mg/mg 10-20 [facility] CBC-Complete Blood Cnt No Di ffon 04-25-2024 Erythrocyte distribution width (RBC) [Ratio] 13.8 % Normal 11.6-14.6 [facility] Comment on above: Order Comment: Order Date: 04/24/24Order Info: [id number] - CBC Performed By: #### L 500.2500, L100.0500 ####[facility] [address] [place], [address] Hematocrit (Bld) [Volume fraction] 44.9 % Normal 37-47 [facility] Comment on above: Order Comment: Order Date: 04/24/24Order Info: [id number] - CBC Performed By: #### L 500.2500, L100.0500 ####[facility] [address] [place], [address] Hemoglobin (Bld) [Mass/Vol] 14.6 g/dL Normal 12.0-15.0 [facility] Comment on above: Order Comment: Order Date: 04/24/24Order Info: [id number] - CBC Performed By: #### L 500.2500, L100.0500 ####[facility] [address] [place], [address] MCH (RBC) [Entitic mass] 29.9 pg Normal 27.0-32.0 [facility] Comment on above: Order Comment: Order Date: 04/24/24Order Info: [id number] - CBC Performed By: #### L 500.2500, L100.0500 ####[facility] [address] [place], [address] MCHC (RBC) [Mass/Vol] 32.5 g/dL Normal 32-36 [facility] Comment on above: Order Comment: Order Date: 04/24/24Order Info: [id number] - CBC Performed By: #### L 500.2500, L100.0500 ####[facility] [address] [place], [address] MCV (RBC) [Entitic vol] 91.8 fL Normal 81-99 [facility] Comment on above: Order Comment: Order Date: 04/24/24Order Info: [id number] - CBC Performed By: #### L 500.2500, L100.0500 ####[facility] [address] [place], [address] Platelet mean volume (Bld) [Entitic vol] 8.8 fL Normal 6.2-12.0 [facility] Comment on above: Order Comment: Order Date: 04/24/24Order Info: [id number] - CBC Performed By: #### L 500.2500, L100.0500 ####[facility] [address] [place], [address] Platelets (Bld) [#/Vol] 273 10*3/uL Normal 150-450 [facility] Comment on above: Order Comment: Order Date: 04/24/24Order Info: [id number] - CBC Performed By: #### L 500.2500, L100.0500 ####[facility] [address] [place], [address] RBC (Bld) [#/Vol] 4.89 10*6/uL Normal 4.2-5.4 [facility] Comment on above: Order Comment: Order Date: 04/24/24Order Info: [id number] - CBC Performed By: #### L 500.2500, L100.0500 ####[facility] [address] [place], [address] RDW SD 46.9 fl High 35.1-43.9 [facility] Comment on above: Order Comment: Order Date: 04/24/24Order Info: [id number] - CBC Performed By: #### L 500.2500, L100.0500 ####[facility] [address] [place], [place], [id number](838) WBC (Bld) [#/Vol] 9.3 10*3/uL Normal 4.4-11.0 [facility] Comment on above: Order Comment: Order Date: 04/24/24Order Info: [id number] - CBC Performed By: #### L 500.2500, L100.0500 ####[facility] [address] [place], [address] Carbon dioxide measurementOr dered By: Trish Wolff on 04-25-2024 CO2 [Moles/Vol] 26.0 mmol/L Normal 21.0-32.0 [facility] Comment on above: Order Comment: Order Date: 04/24/24Order Info: [id number] - BMPPATIENT DID NOT WANT THE LIPID AND TSH DONE. SHE WANTED TOTALK TO HEART DR. Performed By: #### L 500.2500, L100.0500 ####[facility] [address] [place], [place], [id number] Chloride measurementOrdered By: Trish Wolff on 04-25-2024 Chloride [Moles/Vol] 106 mmol/L Normal 98-107 [facility] Comment on above: Order Comment: Order Date: 04/24/24Order Info: [id number] - BMPPATIENT DID NOT WANT THE LIPID AND TSH DONE. SHE WANTED TOTALK TO HEART DR. Performed By: #### L 500.2500, L100.0500 ####[facility] [address] [place], [address] Erythrocyte distribution wid th ratioOrdered By: Trish Wolff on 04-25-2024 Erythrocyte distribution width (RBC) [Ratio] 13.8 % 11.6-14.6 [facility] Erythrocyte distribution wid th standard deviationOrdered By: Trish Wolff on 04-25-2024 Erythrocyte distribution width (RBC) [Entitic vol] 46.9 fL High 35.1-43.9 [facility] Estimated glomerular filtrat ion rate (GFR) AmericanOrdered By: Trish Wolff on 04-25-2024 Estimated GFR (MDRD) Amer 61 mL/min >60 [facility] Comment on above: GFR Calc Glomerular filtration rate ( GFR) estimationOrdered By: Trish Wolff on 04-25-2024 Estimated GFR (MDRD) Non-Af Amer 51 mL/min Low >60 [facility] Comment on above: Non- GFR Calc Glucose measurementOrdered B y: Trish Wolff on 04-25-2024 Glucose [Mass/Vol] 114 mg/dL High 74-106 [facility] Comment on above: Fasting Glucose resu lt from 100 to 125 mg/dL suggests IMPAIRED HOMEOSTASIS per A.D.A. criteria. Order Comment: Order Date: 04/24/24Order Info: [id number] - BMPPATIENT DID NOT WANT THE LIPID AND TSH DONE. SHE WANTED TOTALK TO HEART DR. Result Comment: Fast ing Glucose result from 100 to 125 mg/dLsuggests IMPAIRED HOMEOSTASIS per A.D.A. criteria. Performed By: #### L 500.2500, L100.0500 ####[facility] [address] [place], [address] Hematocrit Auto (Bld) [Volum e fraction]Ordered By: Trish Wolff on 04-25-2024 Hematocrit (Bld) [Volume fraction] 44.9 % 37-47 [facility] Hemoglobin measurementOrdere d By: Trish Wolff on 04-25-2024 Hemoglobin (Bld) [Mass/Vol] 14.6 g/dL 12.0-15.0 [facility] MCV (mean corpuscular volume ) determinationOrdered By: Trish Wolff on 04-25-2024 MCV (RBC) [Entitic vol] 91.8 fL 81-99 [facility] Mean corpuscular hemoglobin (MCH) determinationOrdered By: Trish Wolff on 04-25-2024 MCH (RBC) [Entitic mass] 29.9 pg 27.0-32.0 [facility] Mean corpuscular hemoglobin concentration (MCHC) determinationOrdered By: Trish Wolff on 04-25-2024 MCHC (RBC) [Mass/Vol] 32.5 g/dL 32-36 [facility] Mean platelet volume determi nationOrdered By: Trish Wolff on 04-25-2024 Platelet mean volume (Bld) [Entitic vol] 8.8 fL 6.2-12.0 [facility] Platelet countOrdered By: Harman Wolff on 04-25-2024 Platelets (Bld) [#/Vol] 273 10*3/uL 150-450 [facility] Potassium measurementOrdered By: Trish Wolff on 04-25-2024 Potassium [Moles/Vol] 4.7 mmol/L Normal 3.5-5.1 [facility] Comment on above: Order Comment: Order Date: 04/24/24Order Info: [id number] - BMPPATIENT DID NOT WANT THE LIPID AND TSH DONE. SHE WANTED TOTALK TO HEART DR. Performed By: #### L 500.2500, L100.0500 ####[facility] [address] [place], [address] RBC Auto (Bld) [#/Vol]Ordere d By: Trish Wolff on 04-25-2024 RBC (Bld) [#/Vol] 4.89 10*6/uL 4.2-5.4 [facility] Serum anion gap measurementO rdered By: Trish Wolff on 04-25-2024 Anion gap [Moles/Vol] 4 mmol/L Low 5-15 [facility] Serum or plasma calcium nicole urement (mass/volume)Ordered By: Trish Wolff on 04-25-2024 Calcium [Mass/Vol] 9.2 mg/dL 8.5-10.1 [facility] Serum or plasma creatinine m easurement (mass/volume)Ordered By: Trish Wolff on 04-25-2024 Creatinine [Mass/Vol] 1.14 mg/dL High 0.55-1.02 [facility] Comment on above: The validity of the calculated GFR & GFRAA in patients over 70 years has not been determined. Clinical correlation is essential. Order Comment: Order Date: 04/24/24Order Info: [id number] [facility] AND TSH DONE. SHE WANTED TOTALK TO HEART DR. Result Comment: The validity of the calculated GFR GFRAA in patients over70 years has not been determined. Clinical correlation isessential. Performed By: #### L 500.2500, L100.0500 ####[facility] [address] [place], [address] Serum or plasma urea nitroge n measurement (mass/volume)Ordered By: Trish Wolff on 04-25-2024 Urea nitrogen [Mass/Vol] 16 mg/dL Normal 7-18 [facility] Comment on above: Order Comment: Order Date: 04/24/24Order Info: [id number] - [facility] NOT [facility] THE LIPID AND TSH DONE. SHE WANTED TOTALK TO HEART DRMavis Performed By: #### L 500.2500, L100.0500 ####[facility] [address] [place], [place], [address] Sodium levelOrdered By: Trish Wolff on 04-25-2024 Sodium [Moles/Vol] 136 mmol/L Normal 136-145 [facility] Comment on above: Order Comment: Order Date: 04/24/24Order Info: [id number] - [facility] NOT WANT THE LIPID AND TSH DONE. SHE WANTED TOTALK TO HEART . Performed By: #### L 500.2500, L100.0500 ####[facility] [address] [place], [place], [address] White blood cell (WBC) count Ordered By: Trish Wolff on 04-25-2024 WBC (Bld) [#/Vol] 9.3 10*3/uL 4.4-11.0 [facility] Pelvis 1 or 2 Viewson 2024 Pelvis 1 or 2 Views Normal [facility] L/S Spine Bending Flex/[place] 04-18-2024 L/S Spine Bending Flex/Ext Normal [facility] Orthopedic Visit Reporton Orthopedic Visit Report Normal [facility] Miscellaneous Lab Procedureo n 12--2024 MISC LAB TEST Normal [facility] Comment on above: Order Comment: HAEMO PHILUS AB #[id number] SERUM RFHAEMOPHILUS AB #[id number] SERUM RF Result Comment: TEST RESULTS LIMITSHaemophilus influenzae B IgG 0.12 ug/mL NOTE: An anti-Hib level of 0.15 ug/mL is generallyaccepted as the minimum level for protection. Optimal protectionpost- vaccination requires a level greater than 1.00 ug/mL. TESTING PERFORMED AT [facility]. ORIGINAL REPORT ON FILE IN LAB CONTAINS ADDITIONAL TEST SITE INFORMATION. Performed By: #### L 801.1541 ####[facility] [address] [place], [address] Miscellaneous procedureOrder ed By: Lynda Alonso on 03-22-2024 Miscellaneous Test See comment [facility] Comment on above: TEST RESULTS LIMITSH aemophilus influenzae B IgG 0.12 ug/mL NOTE: An anti-Hib level of 0.15 ug/mL is generally accepted as the minimum level for protection. Optimal protection post- vaccination requires a level greater than 1.00 ug/mL. TESTING PERFORMED AT [facility]. ORIGINAL REPORT ON FILE IN LAB CONTAINS ADDITIONAL TEST SITE INFORMATION. Absolute lymphocyte countOrd ered By: Chadwick Randleyusra on 03-11-2024 Lymphocytes Auto (Unsp spec) [#/Vol] 2.18 10*3/uL 0.83-4.51 [facility] Absolute neutrophil countOrd ered By: [facility] Randley[facility] on 03-11-2024 Neutrophils (Bld) [#/Vol] 5.0 10*3/uL 2.0-7.7 [facility] Albumin to globulin ratioOrd ered By: [facility] Randleyusra on 03-11-2024 Albumin/Globulin [Mass ratio] 1.1 {ratio} 0.9-2.4 [facility] Automated lymphocyte count a s percentage of total leukocytesOrdered By: [facility] Randleyusra on 03-11-2024 Lymphocytes/100 WBC Auto (Unsp spec) 27.0 % 19-41 [facility] Basophil percentageOrdered B y: Chadwick Randleyusra on 03-11-2024 Basophils/100 WBC (Bld) 0.7 % 0-1 [facility] Bilirubin, totalOrdered By: [facility] Randleyusra on 03-11-2024 Bilirubin [Mass/Vol] 1.10 mg/dL High 0.20-1.00 [facility] Comment on above: For patients on eltr ombopag therapy, use of Dimension [place] TBIL is not recommended. Blood urea nitrogen (BUN)/cr eatinine ratioOrdered By: [facility] Jeimy on 03-11-2024 Urea nitrogen/Creatinine [Mass ratio] 16.1 mg/mg 10-20 [facility] CBC W/Diff, Automatedon 02-16 Absolute Lymph 2.18 X10 3/uL Normal 0.83-4.51 [facility] Comment on above: Performed By: #### L 100.0100, L501.5200, L500.4050, L501.2300 ####[facility] [address] [place], [place], [address] Absolute Neut 5.0 X10 3/uL Normal 2.0-7.7 [facility] Comment on above: Performed By: #### L 100.0100, L501.5200, L500.4050, L501.2300 ####[facility] [address] [place], [address] Basophils/100 WBC (Bld) 0.7 % Normal 0-1 [facility] Comment on above: Performed By: #### L 100.0100, L501.5200, L500.4050, L501.2300 ####[facility] [address] [place], [address] Eosinophils/100 WBC (Bld) 0.9 % Normal 0-5 [facility] Comment on above: Performed By: #### L 100.0100, L501.5200, L500.4050, L501.2300 ####[facility] [address] [place], [address] Erythrocyte distribution width (RBC) [Ratio] 13.3 % Normal 11.6-14.6 [facility] Comment on above: Performed By: #### L 100.0100, L501.5200, L500.4050, L501.2300 ####[facility] [address] [place], [address] Hematocrit (Bld) [Volume fraction] 42.1 % Normal 37-47 [facility] Comment on above: Performed By: #### L 100.0100, L501.5200, L500.4050, L501.2300 ####[facility] [address] [place], [address] Hemoglobin (Bld) [Mass/Vol] 14.1 g/dL Normal 12.0-15.0 [facility] Comment on above: Performed By: #### L 100.0100, L501.5200, L500.4050, L501.2300 ####[facility] [address] [place], [address] IG% 0.200 Normal 0.0-0.9 [facility] Comment on above: Result Comment: IG% - Immature Granulocytes (promyelocytes, myelocytes andmetamyelocytes) > 1% indicates that a LEFT SHIFT is Present. Performed By: #### L 100.0100, L501.5200, L500.4050, L501.2300 ####[facility] [address] [place], [address] Lymphocytes/100 WBC (Bld) 27.0 % Normal 19-41 [facility] Comment on above: Performed By: #### L 100.0100, L501.5200, L500.4050, L501.2300 ####[facility] [address] [place], [address] MCH (RBC) [Entitic mass] 29.9 pg Normal 27.0-32.0 [facility] Comment on above: Performed By: #### L 100.0100, L501.5200, L500.4050, L501.2300 ####[facility] [address] [place], [address] MCHC (RBC) [Mass/Vol] 33.5 g/dL Normal 32-36 [facility] Comment on above: Performed By: #### L 100.0100, L501.5200, L500.4050, L501.2300 ####[facility] [address] [place], [address] MCV (RBC) [Entitic vol] 89.4 fL Normal 81-99 [facility] Comment on above: Performed By: #### L 100.0100, L501.5200, L500.4050, L501.2300 ####[facility] [address] [place], [address] Monocytes/100 WBC (Bld) 9.7 % Normal 0-10 [facility] Comment on above: Performed By: #### L 100.0100, L501.5200, L500.4050, L501.2300 ####[facility] [address] [place], [address] Neutrophils/100 WBC (Bld) 61.5 % Normal 47-70 [facility] Comment on above: Performed By: #### L 100.0100, L501.5200, L500.4050, L501.2300 ####[facility] [address] [place], [address] Nucleated RBC (Bld) [#/Vol] 0 10*3/uL Normal 0-5 [facility] Comment on above: Performed By: #### L 100.0100, L501.5200, L500.4050, L501.2300 ####[facility] [address] [place], [address] Platelet mean volume (Bld) [Entitic vol] 8.0 fL Normal 6.2-12.0 [facility] Comment on above: Performed By: #### L 100.0100, L501.5200, L500.4050, L501.2300 ####[facility] [address] [place], [address] Platelets (Bld) [#/Vol] 226 10*3/uL Normal 150-450 [facility] Comment on above: Performed By: #### L 100.0100, L501.5200, L500.4050, L501.2300 ####[facility] [address] [place], [address] RBC (Bld) [#/Vol] 4.71 10*6/uL Normal 4.2-5.4 [facility] Comment on above: Performed By: #### L 100.0100, L501.5200, L500.4050, L501.2300 ####[facility] [address] [place], [address] RDW SD 44.0 fl High 35.1-43.9 [facility] Comment on above: Performed By: #### L 100.0100, L501.5200, L500.4050, L501.2300 ####[facility] [address] [place], [address] WBC (Bld) [#/Vol] 8.1 10*3/uL Normal 4.4-11.0 [facility] Comment on above: Performed By: #### L 100.0100, L501.5200, L500.4050, L501.2300 ####[facility] [address] [place], [address] Carbon dioxide measurementOr dered By: Chadwick Munson on 03-11-2024 CO2 [Moles/Vol] 27.0 mmol/L 21.0-32.0 [facility] Chloride measurementOrdered By: Chadwick Munson on 03-11-2024 Chloride [Moles/Vol] 103 mmol/L 98-107 [facility] Comprehensive Metabolic Prof ilon 03-11-2024 Albumin [Mass/Vol] 4.0 g/dL Normal 3.2-5.0 [facility] Comment on above: Performed By: #### L 100.0100, L501.5200, L500.4050, L501.2300 ####[facility] [address] [place], [address] Albumin/Globulin [Mass ratio] 1.1 {ratio} Normal 0.9-2.4 [facility] Comment on above: Performed By: #### L 100.0100, L501.5200, L500.4050, L501.2300 ####[facility] [address] [place], [address] ALK P 68 U/L Normal 45-117 [facility] Comment on above: Performed By: #### L 100.0100, L501.5200, L500.4050, L501.2300 ####[facility] [address] [place], [address] ALT [Catalytic activity/Vol] 26 U/L Normal 13-56 [facility] Comment on above: Performed By: #### L 100.0100, L501.5200, L500.4050, L501.2300 ####[facility] [address] [place], [address] AST [Catalytic activity/Vol] 23 U/L Normal 15-37 [facility] Comment on above: Performed By: #### L 100.0100, L501.5200, L500.4050, L501.2300 ####[facility] [address] [place], [address] Bilirubin [Mass/Vol] 1.10 mg/dL High 0.20-1.00 [facility] Comment on above: Result Comment: For patients on eltrombopag therapy, use of Dimension [place] TBIL is not recommended. Performed By: #### L 100.0100, L501.5200, L500.4050, L501.2300 ####[facility] [address] [place], [address] BUN/CRE 16.1 RATIO Normal 10-20 [facility] Comment on above: Performed By: #### L 100.0100, L501.5200, L500.4050, L501.2300 ####[facility] [address] [place], [address] CA,Total 9.2 mg/dL Normal 8.5-10.1 [facility] Comment on above: Performed By: #### L 100.0100, L501.5200, L500.4050, L501.2300 ####[facility] [address] [place], [address] Chloride [Moles/Vol] 103 mmol/L Normal 98-107 [facility] Comment on above: Performed By: #### L 100.0100, L501.5200, L500.4050, L501.2300 ####[facility] [address] [place], [address] CO2 [Moles/Vol] 27.0 mmol/L Normal 21.0-32.0 [facility] Comment on above: Performed By: #### L 100.0100, L501.5200, L500.4050, L501.2300 ####[facility] [address] [place], [address] Creatinine [Mass/Vol] 1.12 mg/dL High 0.55-1.02 [facility] Comment on above: Result Comment: The validity of the calculated GFR GFRAA in patients over70 years has not been determined. Clinical correlation isessential. Performed By: #### L 100.0100, L501.5200, L500.4050, L501.2300 ####[facility] [address] [place], [address] ECRCL 44.46 ml/min Normal [facility] Comment on above: Performed By: #### L 100.0100, L501.5200, L500.4050, L501.2300 ####[facility] [address] [place], [address] EST GFR - AA 63 mL/min Normal >60 [facility] Comment on above: Result Comment: Afri can [place] GFR Calc Performed By: #### L 100.0100, L501.5200, L500.4050, L501.2300 ####[facility] [address] [place], [address] GAP 6 Normal 5-15 [facility] Comment on above: Performed By: #### L 100.0100, L501.5200, L500.4050, L501.2300 ####[facility] [address] [place], [address] GFR/1.73 sq M.predicted among non-blacks MDRD (S/P/Bld) [Vol rate/Area] 52 mL/min/{1.73_m2} Low >60 [facility] Comment on above: Result Comment: Non- GFR Calc Performed By: #### L 100.0100, L501.5200, L500.4050, L501.2300 ####[facility] [address] [place], [address] Globulin (S) [Mass/Vol] 3.6 g/dL Normal 2.2-4.2 [facility] Comment on above: Performed By: #### L 100.0100, L501.5200, L500.4050, L501.2300 ####[facility] [address] [place], [address] Glucose [Mass/Vol] 101 mg/dL Normal 74-106 [facility] Comment on above: Result Comment: Fast ing Glucose result from 100 to 125 mg/dLsuggests IMPAIRED HOMEOSTASIS per A.D.A. criteria. Performed By: #### L 100.0100, L501.5200, L500.4050, L501.2300 ####[facility] [address] [place], [address] Potassium [Moles/Vol] 3.9 mmol/L Normal 3.5-5.1 [facility] Comment on above: Performed By: #### L 100.0100, L501.5200, L500.4050, L501.2300 ####[facility] [address] [place], [address] Sodium [Moles/Vol] 136 mmol/L Normal 136-145 [facility] Comment on above: Performed By: #### L 100.0100, L501.5200, L500.4050, L501.2300 ####[facility] [address] [place], [address] T PROT 7.6 g/dL Normal 6.4-8.2 [facility] Comment on above: Performed By: #### L 100.0100, L501.5200, L500.4050, L501.2300 ####[facility] [address] [place], [address] Urea nitrogen [Mass/Vol] 18 mg/dL Normal 7-18 [facility] Comment on above: Performed By: #### L 100.0100, L501.5200, L500.4050, L501.2300 ####[facility] [address] [place], [address] Eosinophil percentageOrdered By: Chadwick Munson on 03-11-2024 Eosinophils/100 WBC (Bld) 0.9 % 0-5 [facility] Erythrocyte distribution wid th ratioOrdered By: Chadwick Munson on 03-11-2024 Erythrocyte distribution width (RBC) [Ratio] 13.3 % 11.6-14.6 [facility] Erythrocyte distribution wid th standard deviationOrdered By: Chadwick Munson on 03-11-2024 Erythrocyte distribution width (RBC) [Entitic vol] 44.0 fL High 35.1-43.9 [facility] Erythrocyte distribution width (RBC) [Ratio] 44.0 fl High 35.1-43.9 [facility] Estimated glomerular filtrat ion rate (GFR) AmericanOrdered By: Chadwick Munson on 03-11-2024 Estimated GFR (MDRD) Amer 63 mL/min >60 [facility] Comment on above: GFR Calc Estimation of creatinine ximena aranceOrdered By: Chadwick Munson on 03-11-2024 Estimated Creatinine Clearance Calc 44.46 ml/min [facility] Glomerular filtration rate ( GFR) estimationOrdered By: Chadwick Munson on 03-11-2024 Estimated GFR (MDRD) Non-Af Amer 52 mL/min Low >60 [facility] Comment on above: Non- GFR Calc GFR/1.73 sq M.predicted among non-blacks MDRD (S/P/Bld) [Vol rate/Area] 52 mL/min/{1.73_m2} Low >60 [facility] Comment on above: Non- GFR Calc Glucose measurementOrdered B y: Chadwick Munson on 03-11-2024 Glucose [Mass/Vol] 101 mg/dL 74-106 [facility] Comment on above: Fasting Glucose resu lt from 100 to 125 mg/dL suggests IMPAIRED HOMEOSTASIS per A.D.A. criteria. Hematocrit Auto (Bld) [Volum e fraction]Ordered By: Chadwick Munson on 03-11-2024 Hematocrit (Bld) [Volume fraction] 42.1 % 37-47 [facility] Hemoglobin measurementOrdere d By: Chadwick Munson on 03-11-2024 Hemoglobin (Bld) [Mass/Vol] 14.1 g/dL 12.0-15.0 [facility] Immature granulocytes/100 WB C Auto (Bld)Ordered By: Chadwick Munson on 03-11-2024 Immature granulocytes/100 WBC (Bld) 0.200 % 0.0-0.9 [facility] Comment on above: IG% - Immature Granu locytes (promyelocytes, myelocytes and metamyelocytes) > 1% indicates that a LEFT SHIFT is Present. Laboratory - Chemistry and C hemistry - challengeOrdered By: Chadwick Munson on 03-11-2024 AST [Catalytic activity/Vol] 23 U/L 15-37 [facility] Lymphocytes Auto (Unsp spec) [#/Vol]Ordered By: Chadwick Munson on 03-11-2024 Lymphocytes (Bld) [#/Vol] 2.18 10*3/uL 0.83-4.51 [facility] Lymphocytes/100 WBC Auto (Un sp spec)Ordered By: Chadwick Munson on 03-11-2024 Lymphocytes/100 WBC (Bld) 27.0 % 19-41 [facility] MCV (mean corpuscular volume ) determinationOrdered By: Chadwick Munson on 03-11-2024 MCV (RBC) [Entitic vol] 89.4 fL 81-99 [facility] Magnesiumon 03-11-2024 Magnesium [Mass/Vol] 2.3 mg/dL Normal 1.6-2.6 [facility] Comment on above: Performed By: #### L 100.0100, L501.5200, L500.4050, L501.2300 ####[facility] [address] [place], [place], [id number] Magnesium measurementOrdered By: Chadwick Munson on 03-11-2024 Magnesium [Mass/Vol] 2.3 mg/dL 1.6-2.6 [facility] Mean corpuscular hemoglobin (MCH) determinationOrdered By: Chadwick Munson on 03-11-2024 MCH (RBC) [Entitic mass] 29.9 pg 27.0-32.0 [facility] Mean corpuscular hemoglobin concentration (MCHC) determinationOrdered By: [facility] Mun[facility] on 03-11-2024 MCHC (RBC) [Mass/Vol] 33.5 g/dL 32-36 [facility] Mean platelet volume determi nationOrdered By: [facility] Jeimy on 03-11-2024 Platelet mean volume (Bld) [Entitic vol] 8.0 fL 6.2-12.0 [facility] Monocyte percentageOrdered B y: [facility] Jeimy on 03-11-2024 Monocytes/100 WBC (Bld) 9.7 % 0-10 [facility] Neutrophil percentageOrdered By: [facility] Jeimy on 03-11-2024 Neutrophils/100 WBC (Bld) 61.5 % 47-70 [facility] Nucleated red blood cell per centageOrdered By: [facility] Jeimy on 03-11-2024 Nucleated RBC/100 WBC (Bld) [Ratio] 0 % 0-5 [facility] Oncology Visit Reporton 02-16 Oncology Visit Report Normal [facility] Phosphoruson 03-11-2024 Phosphate [Mass/Vol] 3.3 mg/dL Normal 2.5-4.9 [facility] Comment on above: Performed By: #### L 100.0100, L501.5200, L500.4050, L501.2300 ####[facility] [address] [place], [place], [id number] Phosphorus measurementOrdere d By: Chadwick Munson on 03-11-2024 Phosphorus Level 3.3 mg/dL 2.5-4.9 [facility] Platelet countOrdered By: Kallie jayson Jeimy on 03-11-2024 Platelets (Bld) [#/Vol] 226 10*3/uL 150-450 [facility] Potassium measurementOrdered By: Chadwick Jeimy on 03-11-2024 Potassium [Moles/Vol] 3.9 mmol/L 3.5-5.1 [facility] RBC Auto (Bld) [#/Vol]Ordere d By: Chadwick Jeimy on 03-11-2024 RBC (Bld) [#/Vol] 4.71 10*6/uL 4.2-5.4 [facility] Serum anion gap measurementO rdered By: Chadwick Jeimy on 03-11-2024 Anion gap [Moles/Vol] 6 mmol/L 5-15 [facility] Serum globulin measurementOr dered By: Chadwick Jeimy on 03-11-2024 Globulin (S) [Mass/Vol] 3.6 g/dL 2.2-4.2 [facility] Serum or plasma alanine lam otransferase (ALT) measurementOrdered By: Chadwick Jeimy on 03-11-2024 ALT [Catalytic activity/Vol] 26 U/L 13-56 [facility] Serum or plasma albumin nicole urement (mass/volume)Ordered By: Chadwick Jeimy on 03-11-2024 Albumin [Mass/Vol] 4.0 g/dL 3.2-5.0 [facility] Serum or plasma alkaline natanael sphatase measurementOrdered By: Michealace Munson on 03-11-2024 ALP [Catalytic activity/Vol] 68 U/L 45-117 [facility] Serum or plasma calcium nicole urement (mass/volume)Ordered By: Michealace Munson on 03-11-2024 Calcium [Mass/Vol] 9.2 mg/dL 8.5-10.1 [facility] Serum or plasma creatinine m easurement (mass/volume)Ordered By: Michealace Munson on 03-11-2024 Creatinine [Mass/Vol] 1.12 mg/dL High 0.55-1.02 [facility] Comment on above: The validity of the calculated GFR & GFRAA in patients over 70 years has not been determined. Clinical correlation is essential. Serum or plasma urea nitroge n measurement (mass/volume)Ordered By: Chadwick Jeimy on 03-11-2024 Urea nitrogen [Mass/Vol] 18 mg/dL 11-01 [facility] Sodium levelOrdered By: Micheal bello Jeimy on 03-11-2024 Sodium [Moles/Vol] 136 mmol/L 136-145 [facility] Total proteinOrdered By: Luis freeman Jeimy on 03-11-2024 Protein [Mass/Vol] 7.6 g/dL 6.4-8.2 [facility] White blood cell (WBC) count Ordered By: Chadwick Jeimy on 03-11-2024 WBC (Bld) [#/Vol] 8.1 10*3/uL 4.4-11.0 [facility] Bone Scan Whole Bodyon 03-07 Bone Scan Whole Body Normal [facility] CREATININE FINGERSTICKon Creatinine [Mass/Vol] 1.1 mg/dL High 0.55-1.02 [facility] Comment on above: Performed By: #### L 9100.0200 ####[facility] [address] [facility] [address] [place], [place], [id number] GFR/1.73 sq M.predicted among non-blacks MDRD (S/P/Bld) [Vol rate/Area] 55.0000 mL/min/{1.73_m2} Low >60 [facility] Comment on above: Performed By: #### L 9100.0200 ####[facility] [address] [facility] [address] [place], [place], [id number] CT Chest AND Abd W/ Contrast on 03-04-2024 CT Chest AND Abd W/ Contrast Normal [facility] Coronary Angiography CTon Coronary Angiography CT Normal [facility] Creatinine measurement at be dsideOrdered By: Gabriele Guerrero on 03-04-2024 Creatinine [Mass/Vol] 1.1 mg/dL High 0.55-1.02 [facility] EGFROrdered By: Gabriele Guerrero on 03-04-2024 GFR/1.73 sq M.predicted among non-blacks MDRD (S/P/Bld) [Vol rate/Area] 55.0000 mL/min/{1.73_m2} Low >[address] [facility] [address] Cardiac Onl yon 03-04-[address] Cardiac Only Normal [facility] Re-Evaluation - PT (1)on Re-Evaluation - PT (1) Normal [facility] Cardiology Visit Reporton Cardiology Visit Report Normal [facility] Radiation Oncology Visiton 1 Radiation Oncology Visit Normal [facility] Inital Evaluation (1) - PTon 01-23-2024 Inital Evaluation (1) - PT Normal [facility] Lumbar Spine 2 or 3 Viewson 01-17-2024 Lumbar Spine 2 or 3 Views Normal [facility] Pulmonary Visit Reporton Pulmonary Visit Report Normal [facility] Ankle Brachial Indexon 01-04 Ankle Brachial Index Normal [facility] Radiation Oncology Visiton 0 01-05-2024 Radiation Oncology Visit Normal [facility] Radiation Oncology Visit Normal [facility] Radiation Oncology Visiton 0 01-03-2024 Radiation Oncology Visit Normal [facility] Radiation Oncology Visit Normal [facility] Radiation Oncology Visiton 0 01-01-2024 Radiation Oncology Visit Normal [facility] Radiation Oncology Visiton 0 12-28-2023 Radiation Oncology Visit Normal [facility] Miscellaneous Lab Procedureo n 12-26-2023 MISC LAB TEST Normal [facility] Comment on above: Order Comment: [id number] [facility] [id number] [facility] RF Result Comment: TEST RESULTS LIMITSVitamin K1, 0.26 ng/mL 0.10-2.20 ___ TESTING PERFORMED AT [facility]. ORIGINAL REPORT ON FILE IN LAB CONTAINS ADDITIONAL TEST SITE INFORMATION. Performed By: #### L 801.1541 ####[facility] [address] [place], [address] Radiation Oncology Visiton 0 12-26-2023 Radiation Oncology Visit Normal [facility] CBC W/Diff, Automatedon - Absolute Lymph 1.76 X10 3/uL Normal 0.83-4.51 [facility] Comment on above: Order Comment: Order Date: 12/12/23Order Info: 018- - CBCD Performed By: #### L 100.0100, L500.4050, L501.9985 ####[facility] [address] [place], [address] Absolute Neut 5.0 X10 3/uL Normal 2.0-7.7 [facility] Comment on above: Order Comment: Order Date: 12/12/23Order Info: 0184-1 - CBCD Performed By: #### L 100.0100, L500.4050, L501.9985 ####[facility] [address] [place], [address] Basophils/100 WBC (Bld) 0.7 % Normal 0-1 [facility] Comment on above: Order Comment: Order Date: 12/12/23Order Info: 0184-1 - CBCD Performed By: #### L 100.0100, L500.4050, L501.9985 ####[facility] [address] [place], [address] Eosinophils/100 WBC (Bld) 1.2 % Normal 0-5 [facility] Comment on above: Order Comment: Order Date: 12/12/23Order Info: 0184-1 - CBCD Performed By: #### L 100.0100, L500.4050, L501.9985 ####[facility] [address] [place], [address] Erythrocyte distribution width (RBC) [Ratio] 13.9 % Normal 11.6-14.6 [facility] Comment on above: Order Comment: Order Date: 12/12/23Order Info: 0184-1 - CBCD Performed By: #### L 100.0100, L500.4050, L501.9985 ####[facility] [address] [place], [address] Hematocrit (Bld) [Volume fraction] 43.1 % Normal 37-47 [facility] Comment on above: Order Comment: Order Date: 12/12/23Order Info: 0184-1 - CBCD Performed By: #### L 100.0100, L500.4050, L501.9985 ####[facility] [address] [place], [address] Hemoglobin (Bld) [Mass/Vol] 13.7 g/dL Normal 12.0-15.0 [facility] Comment on above: Order Comment: Order Date: 12/12/23Order Info: 0184-1 - CBCD Performed By: #### L 100.0100, L500.4050, L501.9985 ####[facility] [address] [place], [address] IG% 0.300 Normal 0.0-0.9 [facility] Comment on above: Order Comment: Order Date: 12/12/23Order Info: 0184-1 - CBCD Result Comment: IG% - Immature Granulocytes (promyelocytes, myelocytes andmetamyelocytes) > 1% indicates that a LEFT SHIFT is Present. Performed By: #### L 100.0100, L500.4050, L501.9985 ####[facility] [address] [place], [address] Lymphocytes/100 WBC (Bld) 23.2 % Normal 19-41 [facility] Comment on above: Order Comment: Order Date: 12/12/23Order Info: 0184-1 - CBCD Performed By: #### L 100.0100, L500.4050, L501.9985 ####[facility] [address] [place], [address] MCH (RBC) [Entitic mass] 28.8 pg Normal 27.0-32.0 [facility] Comment on above: Order Comment: Order Date: 12/12/23Order Info: 183- - CBCD Performed By: #### L 100.0100, L500.4050, L501.9985 ####[facility] [address] [place], [address] MCHC (RBC) [Mass/Vol] 31.8 g/dL Low 32-36 [facility] Comment on above: Order Comment: Order Date: 12/12/23Order Info: 183- - CBCD Performed By: #### L 100.0100, L500.4050, L501.9985 ####[facility] [address] [place], [address] MCV (RBC) [Entitic vol] 90.5 fL Normal 81-99 [facility] Comment on above: Order Comment: Order Date: 12/12/23Order Info: 183- - CBCD Performed By: #### L 100.0100, L500.4050, L501.9985 ####[facility] [address] [place], [address] Monocytes/100 WBC (Bld) 9.0 % Normal 0-10 [facility] Comment on above: Order Comment: Order Date: 12/12/23Order Info: 183- - CBCD Performed By: #### L 100.0100, L500.4050, L501.9985 ####[facility] [address] [place], [address] Neutrophils/100 WBC (Bld) 65.6 % Normal 47-70 [facility] Comment on above: Order Comment: Order Date: 12/12/23Order Info: 018-1 - CBCD Performed By: #### L 100.0100, L500.4050, L501.9985 ####[facility] [address] [place], [address] Nucleated RBC (Bld) [#/Vol] 0 10*3/uL Normal 0-5 [facility] Comment on above: Order Comment: Order Date: 12/12/23Order Info: 183- - CBCD Performed By: #### L 100.0100, L500.4050, L501.9985 ####[facility] [address] [place], [address] Platelet mean volume (Bld) [Entitic vol] 8.9 fL Normal 6.2-12.0 [facility] Comment on above: Order Comment: Order Date: 12/12/23Order Info: 183- - CBCD Performed By: #### L 100.0100, L500.4050, L501.9985 ####[facility] [address] [place], [address] Platelets (Bld) [#/Vol] 264 10*3/uL Normal 150-450 [facility] Comment on above: Order Comment: Order Date: 12/12/23Order Info: 183- - CBCD Performed By: #### L 100.0100, L500.4050, L501.9985 ####[facility] [address] [place], [address] RBC (Bld) [#/Vol] 4.76 10*6/uL Normal 4.2-5.4 [facility] Comment on above: Order Comment: Order Date: 12/12/23Order Info: 183-1 - CBCD Performed By: #### L 100.0100, L500.4050, L501.9985 ####[facility] [address] [place], [address] RDW SD 47.1 fl High 35.1-43.9 [facility] Comment on above: Order Comment: Order Date: 12/12/23Order Info: 0184-1 - CBCD Performed By: #### L 100.0100, L500.4050, L501.9985 ####[facility] [address] [place], [address] WBC (Bld) [#/Vol] 7.6 10*3/uL Normal 4.4-11.0 [facility] Comment on above: Order Comment: Order Date: 12/12/23Order Info: 018- - CBCD Performed By: #### L 100.0100, L500.4050, L501.9985 ####[facility] [address] [place], [address] Comprehensive Metabolic Prof ilon 12-14-2023 Albumin [Mass/Vol] 3.9 g/dL Normal 3.2-5.0 [facility] Comment on above: Order Comment: Order Date: 12/12/23Order Info: 0786-1 - CMP Performed By: #### L 100.0100, L500.4050, L501.9985 ####[facility] [address] [place], [address] Albumin/Globulin [Mass ratio] 1.1 {ratio} Normal 0.9-2.4 [facility] Comment on above: Order Comment: Order Date: 12/12/23Order Info: 0786-1 - CMP Performed By: #### L 100.0100, L500.4050, L501.9985 ####[facility] [address] [place], [address] ALK P 69 U/L Normal 45-117 [facility] Comment on above: Order Comment: Order Date: 12/12/23Order Info: 0786-1 - CMP Performed By: #### L 100.0100, L500.4050, L501.9985 ####[facility] [address] [place], [address] ALT [Catalytic activity/Vol] 20 U/L Normal 13-56 [facility] Comment on above: Order Comment: Order Date: 12/12/23Order Info: 0786-1 - CMP Performed By: #### L 100.0100, L500.4050, L501.9985 ####[facility] [address] [place], [address] AST [Catalytic activity/Vol] 18 U/L Normal 15-37 [facility] Comment on above: Order Comment: Order Date: 12/12/23Order Info: 0786-1 - CMP Performed By: #### L 100.0100, L500.4050, L501.9985 ####[facility] [address] [place], [address] Bilirubin [Mass/Vol] 1.00 mg/dL Normal 0.20-1.00 [facility] Comment on above: Order Comment: Order Date: 12/12/23Order Info: 0786-1 - CMP Result Comment: For patients on eltrombopag therapy, use of Dimension [place] TBIL is not recommended. Performed By: #### L 100.0100, L500.4050, L501.9985 ####[facility] [address] [place], [address] BUN/CRE 14.6 RATIO Normal 10-20 [facility] Comment on above: Order Comment: Order Date: 12/12/23Order Info: 0786-1 - CMP Performed By: #### L 100.0100, L500.4050, L501.9985 ####[facility] [address] [place], [address] CA,Total 9.3 mg/dL Normal 8.5-10.1 [facility] Comment on above: Order Comment: Order Date: 12/12/23Order Info: 0786-1 - CMP Performed By: #### L 100.0100, L500.4050, L501.9985 ####[facility] [address] [place], [address] Chloride [Moles/Vol] 106 mmol/L Normal 98-107 [facility] Comment on above: Order Comment: Order Date: 12/12/23Order Info: 0786-1 - CMP Performed By: #### L 100.0100, L500.4050, L501.9985 ####[facility] [address] [place], [address] CO2 [Moles/Vol] 27.0 mmol/L Normal 21.0-32.0 [facility] Comment on above: Order Comment: Order Date: 12/12/23Order Info: 0786-1 - CMP Performed By: #### L 100.0100, L500.4050, L501.9985 ####[facility] [address] [place], [address] Creatinine [Mass/Vol] 1.03 mg/dL High 0.55-1.02 [facility] Comment on above: Order Comment: Order Date: 12/12/23Order Info: 0786-1 - CMP Result Comment: The validity of the calculated GFR GFRAA in patients over70 years has not been determined. Clinical correlation isessential. Performed By: #### L 100.0100, L500.4050, L501.9985 ####[facility] [address] [place], [address] EST GFR - AA 69 mL/min Normal >60 [facility] Comment on above: Order Comment: Order Date: 12/12/23Order Info: 0786-1 - CMP Result Comment: Afri can [place] GFR Calc Performed By: #### L 100.0100, L500.4050, L501.9985 ####[facility] [address] [place], [address] GAP 5 Normal 5-15 [facility] Comment on above: Order Comment: Order Date: 12/12/23Order Info: 0786-1 - CMP Performed By: #### L 100.0100, L500.4050, L501.9985 ####[facility] [address] [place], [address] GFR/1.73 sq M.predicted among non-blacks MDRD (S/P/Bld) [Vol rate/Area] 57 mL/min/{1.73_m2} Low >60 [facility] Comment on above: Order Comment: Order Date: 12/12/23Order Info: 0786-1 - CMP Result Comment: Non- GFR Calc Performed By: #### L 100.0100, L500.4050, L501.9985 ####[facility] [address] [place], [address] Globulin (S) [Mass/Vol] 3.7 g/dL Normal 2.2-4.2 [facility] Comment on above: Order Comment: Order Date: 12/12/23Order Info: 0786-1 - CMP Performed By: #### L 100.0100, L500.4050, L501.9985 ####[facility] [address] [place], [address] Glucose [Mass/Vol] 118 mg/dL High 74-106 [facility] Comment on above: Order Comment: Order Date: 12/12/23Order Info: 0786-1 - CMP Result Comment: Fast ing Glucose result from 100 to 125 mg/dLsuggests IMPAIRED HOMEOSTASIS per A.D.A. criteria. Performed By: #### L 100.0100, L500.4050, L501.9985 ####[facility] [address] [place], [address] Potassium [Moles/Vol] 4.2 mmol/L Normal 3.5-5.1 [facility] Comment on above: Order Comment: Order Date: 12/12/23Order Info: 0786-1 - CMP Performed By: #### L 100.0100, L500.4050, L501.9985 ####[facility] [address] [place], [address] Sodium [Moles/Vol] 138 mmol/L Normal 136-145 [facility] Comment on above: Order Comment: Order Date: 12/12/23Order Info: 0786-1 - CMP Performed By: #### L 100.0100, L500.4050, L501.9985 ####[facility] [address] [place], [address] T PROT 7.6 g/dL Normal 6.4-8.2 [facility] Comment on above: Order Comment: Order Date: 12/12/23Order Info: 0786-1 - CMP Performed By: #### L 100.0100, L500.4050, L501.9985 ####[facility] [address] [place], [address] Urea nitrogen [Mass/Vol] 15 mg/dL Normal 7-18 [facility] Comment on above: Order Comment: Order Date: 12/12/23Order Info: 0786-1 - CMP Performed By: #### L 100.0100, L500.4050, L501.9985 ####[facility] [address] [place], [address] Hemoglobin A1con 12-14-2023 HbA1c (Bld) [Mass fraction] 5.8 % High 3.8-5.6 [facility] Comment on above: Order Comment: Order Date: 12/12/23Order Info: 4548-4 - A1C Result Comment: Norm al < 5.7 % Prediabetic 5.7 - 6.4 % Diabetic >or= 6.5 % Please note range changes. Performed By: #### L 100.0100, L500.4050, L501.9985 ####[facility] [address] [place], [address] Vitamin D,25 Hydroxyon 12-13 Vitamin D 25-OH 63.5 ng/mL Normal [facility] Comment on above: Order Comment: Order Date: 12/12/23Order Info: 40226-2 - VITD25 Result Comment: Loren min D 25(OH) Status Range Deficiency <20 ng/mL (50nmol/L) Insufficiency 20 - 30 ng/mL (50 - 75 nmol/L) Sufficiency 30 - 100 ng/mL (75 - 250 nmol/L) Toxicity >100 ng/mL (>250 nmol/L) Performed By: #### L 506.1000 ####[facility] [address] [place], [address] Brain W/WO Contraston 2023 Brain W/WO Contrast Normal [facility] Oncology Visit Reporton 11-15 Oncology Visit Report Normal [facility] Radiation Oncology Visiton 0 11-30-2023 Radiation Oncology Visit Normal [facility] Chest Insp/Exp 2 Viewon 11-15 Chest Insp/Exp 2 View Normal [facility] Chest Insp/Exp 2 Viewon 08-0 Chest Insp/Exp 2 View Normal [facility] Chest Insp/Exp 2 Viewon 08-0 Chest Insp/Exp 2 View Normal [facility] Chest Insp/Exp 2 View Normal [facility] Partial Thromboplast Timeon 11-22-2023 aPTT Coag (Bld) [Time] 25.6 s Normal 24.1-36.2 [facility] Comment on above: Performed By: #### L 300.3900, L300.4310 ####[facility] [address] [place], [address] Procedure Reporton Procedure Report Normal [facility] Prothrombin Time w/INRon INR Coag (PPP) [Relative time] 1.0 {INR} Normal [facility] Comment on above: Performed By: #### L 300.3900, L300.4310 ####[facility] [address] [place], [address] PT Coag (PPP) [Time] 13.0 s Normal 11.7-14.9 [facility] Comment on above: Performed By: #### L 300.3900, L300.4310 ####[facility] [address] [place], [address] Special Stain Group IIon Special Stain Group II Normal [facility] Comment on above: Performed By: #### P SSII ####[facility] [address] [place], [address] Synapto (add)on 11-22-2023 Synapto (add) Normal [facility] Comment on above: Performed By: #### P SYN. ####[facility] [address] [place], [address] Oncology Visit Reporton 10-16 Oncology Visit Report Normal [facility] PET/CT Tumor Base -Thigh Sub son 11-07-2023 PET/CT Tumor Base -Thigh Subs Normal [facility] CBC W/Diff, Automatedon 10-15 Absolute Lymph 2.44 X10 3/uL Normal 0.83-4.51 [facility] Comment on above: Performed By: #### L 100.0100, L500.4050 ####[facility] [address] [place], [address] Absolute Neut 4.4 X10 3/uL Normal 2.0-7.7 [facility] Comment on above: Performed By: #### L 100.0100, L500.4050 ####[facility] [address] [place], [address] Basophils/100 WBC (Bld) 0.8 % Normal 0-1 [facility] Comment on above: Performed By: #### L 100.0100, L500.4050 ####[facility] [address] [place], [address] Eosinophils/100 WBC (Bld) 1.3 % Normal 0-5 [facility] Comment on above: Performed By: #### L 100.0100, L500.4050 ####[facility] [address] [place], [address] Erythrocyte distribution width (RBC) [Ratio] 13.4 % Normal 11.6-14.6 [facility] Comment on above: Performed By: #### L 100.0100, L500.4050 ####[facility] [address] [place], [address] Hematocrit (Bld) [Volume fraction] 43.8 % Normal 37-47 [facility] Comment on above: Performed By: #### L 100.0100, L500.4050 ####[facility] [address] [place], [address] Hemoglobin (Bld) [Mass/Vol] 14.3 g/dL Normal 12.0-15.0 [facility] Comment on above: Performed By: #### L 100.0100, L500.4050 ####[facility] [address] [place], [address] IG% 0.300 Normal 0.0-0.9 [facility] Comment on above: Result Comment: IG% - Immature Granulocytes (promyelocytes, myelocytes andmetamyelocytes) > 1% indicates that a LEFT SHIFT is Present. Performed By: #### L 100.0100, L500.4050 ####[facility] [address] [place], [address] Lymphocytes/100 WBC (Bld) 31.2 % Normal 19-41 [facility] Comment on above: Performed By: #### L 100.0100, L500.4050 ####[facility] [address] [place], [address] MCH (RBC) [Entitic mass] 29.1 pg Normal 27.0-32.0 [facility] Comment on above: Performed By: #### L 100.0100, L500.4050 ####[facility] [address] [place], [address] MCHC (RBC) [Mass/Vol] 32.6 g/dL Normal 32-36 [facility] Comment on above: Performed By: #### L 100.0100, L500.4050 ####[facility] [address] [place], [address] MCV (RBC) [Entitic vol] 89.2 fL Normal 81-99 [facility] Comment on above: Performed By: #### L 100.0100, L500.4050 ####[facility] [address] [place], [address] Monocytes/100 WBC (Bld) 10.1 % High 0-10 [facility] Comment on above: Performed By: #### L 100.0100, L500.4050 ####[facility] [address] [place], [address] Neutrophils/100 WBC (Bld) 56.3 % Normal 47-70 [facility] Comment on above: Performed By: #### L 100.0100, L500.4050 ####[facility] [address] [place], [address] Nucleated RBC (Bld) [#/Vol] 0 10*3/uL Normal 0-5 [facility] Comment on above: Performed By: #### L 100.0100, L500.4050 ####[facility] [address] [place], [address] Platelet mean volume (Bld) [Entitic vol] 8.5 fL Normal 6.2-12.0 [facility] Comment on above: Performed By: #### L 100.0100, L500.4050 ####[facility] [address] [place], [address] Platelets (Bld) [#/Vol] 239 10*3/uL Normal 150-450 [facility] Comment on above: Performed By: #### L 100.0100, L500.4050 ####[facility] [address] [place], [address] RBC (Bld) [#/Vol] 4.91 10*6/uL Normal 4.2-5.4 [facility] Comment on above: Performed By: #### L 100.0100, L500.4050 ####[facility] [address] [place], [address] RDW SD 43.8 fl Normal 35.1-43.9 [facility] Comment on above: Performed By: #### L 100.0100, L500.4050 ####[facility] [address] [place], [address] WBC (Bld) [#/Vol] 7.8 10*3/uL Normal 4.4-11.0 [facility] Comment on above: Performed By: #### L 100.0100, L500.4050 ####[facility] [address], [address] Comprehensive Metabolic Prof [facility] 10-26-2023 Albumin [Mass/Vol] 4.1 g/dL Normal 3.2-5.0 [facility] Comment on above: Performed By: #### L 100.0100, L500.4050 ####[facility] [address] [place], [address] Albumin/Globulin [Mass ratio] 1.1 {ratio} Normal 0.9-2.4 [facility] Comment on above: Performed By: #### L 100.0100, L500.4050 ####[facility] [address] [place], [address] ALK P 77 U/L Normal 45-117 [facility] Comment on above: Performed By: #### L 100.0100, L500.4050 ####[facility] [address] [place], [address] ALT [Catalytic activity/Vol] 25 U/L Normal 13-56 [facility] Comment on above: Performed By: #### L 100.0100, L500.4050 ####[facility] [address] [place], [address] AST [Catalytic activity/Vol] 27 U/L Normal 15-37 [facility] Comment on above: Performed By: #### L 100.0100, L500.4050 ####[facility] [address] [place], [address] Bilirubin [Mass/Vol] 1.10 mg/dL High 0.20-1.00 [facility] Comment on above: Result Comment: For patients on eltrombopag therapy, use of Dimension [place] TBIL is not recommended. Performed By: #### L 100.0100, L500.4050 ####[facility] [address] [place], [address] BUN/CRE 14.0 RATIO Normal 10-20 [facility] Comment on above: Performed By: #### L 100.0100, L500.4050 ####[facility] [address] [place], [address] CA,Total 9.3 mg/dL Normal 8.5-10.1 [facility] Comment on above: Performed By: #### L 100.0100, L500.4050 ####[facility] [address] [place], [address] Chloride [Moles/Vol] 104 mmol/L Normal 98-107 [facility] Comment on above: Performed By: #### L 100.0100, L500.4050 ####[facility] [address] [place], [address] CO2 [Moles/Vol] 27.0 mmol/L Normal 21.0-32.0 [facility] Comment on above: Performed By: #### L 100.0100, L500.4050 ####[facility] [address] [place], [address] Creatinine [Mass/Vol] 1.07 mg/dL High 0.55-1.02 [facility] Comment on above: Result Comment: The validity of the calculated GFR GFRAA in patients over70 years has not been determined. Clinical correlation isessential. Performed By: #### L 100.0100, L500.4050 ####[facility] [address] [place], [address] ECRCL 48.42 ml/min Normal [facility] Comment on above: Performed By: #### L 100.0100, L500.4050 ####[facility] [address] [place], [address] EST GFR - AA 66 mL/min Normal >60 [facility] Comment on above: Result Comment: Afri can [place] GFR Calc Performed By: #### L 100.0100, L500.4050 ####[facility] [address] [place], [address] GAP 5 Normal 5-15 [facility] Comment on above: Performed By: #### L 100.0100, L500.4050 ####[facility] [address] [place], [address] GFR/1.73 sq M.predicted among non-blacks MDRD (S/P/Bld) [Vol rate/Area] 55 mL/min/{1.73_m2} Low >60 [facility] Comment on above: Result Comment: Non- GFR Calc Performed By: #### L 100.0100, L500.4050 ####[facility] [address] [place], [address] Globulin (S) [Mass/Vol] 3.7 g/dL Normal 2.2-4.2 [facility] Comment on above: Performed By: #### L 100.0100, L500.4050 ####[facility] [address] [place], [address] Glucose [Mass/Vol] 106 mg/dL Normal 74-106 [facility] Comment on above: Result Comment: Fast ing Glucose result from 100 to 125 mg/dLsuggests IMPAIRED HOMEOSTASIS per A.D.A. criteria. Performed By: #### L 100.0100, L500.4050 ####[facility] [address] [place], [address] Potassium [Moles/Vol] 3.9 mmol/L Normal 3.5-5.1 [facility] Comment on above: Performed By: #### L 100.0100, L500.4050 ####[facility] [address] [place], [address] Sodium [Moles/Vol] 136 mmol/L Normal 136-145 [facility] Comment on above: Performed By: #### L 100.0100, L500.4050 ####[facility] [address] [place], [address] T PROT 7.8 g/dL Normal 6.4-8.2 [facility] Comment on above: Performed By: #### L 100.0100, L500.4050 ####[facility] [address] [place], [address] Urea nitrogen [Mass/Vol] 15 mg/dL Normal 7-18 [facility] Comment on above: Performed By: #### L 100.0100, L500.4050 ####[facility] [address] [place], [address] Oncology Visit Reporton 10-15 Oncology Visit Report Normal [facility] CREATININE FINGERSTICKon CREATININE WB < 1.0 Normal 0.55-1.02 [facility] Comment on above: Performed By: #### L 9100.0200 ####[facility] [address] [place], [place], [address] EGFR WB > 60.0000 Normal >60 [facility] Comment on above: Performed By: #### L 9100.0200 ####[facility] [address] [place], [place], [address] CT Chest AND Abd W/ Contrast on 10-20-2023 CT Chest AND Abd W/ Contrast Normal [facility] Basophil percentageOrdered B y: Shavonne Blanchard on 2023 Creatinine [Mass/Vol] 1.1 mg/dL 0.55-1.02 [facility] Laboratory - Chemistry and C hemistry - challengeOrdered By: Shavonne Blanchard on 2023 GFR/1.73 sq M.predicted among non-blacks MDRD (S/P/Bld) [Vol rate/Area] 52.0000 mL/min/{1.73_m2} >60 [facility] Basophil percentageOrdered B y: Marce Jack on 07-04-2023 Bilirubin [Mass/Vol] 0.80 mg/dL 0.20-1.00 [facility] Comment on above: For patients on eltr ombopag therapy, use of Dimension [place] TBIL is not recommended. Chloride [Moles/Vol] 106 mmol/L 98-107 [facility] Glucose [Mass/Vol] 104 mg/dL 74-106 [facility] Comment on above: Fasting Glucose resu lt from 100 to 125 mg/dL suggests IMPAIRED HOMEOSTASIS per A.D.A. criteria. Hemoglobin (Bld) [Mass/Vol] 13.4 g/dL 12.0-15.0 [facility] Potassium [Moles/Vol] 4.6 mmol/L 3.5-5.1 [facility] Protein [Mass/Vol] 7.7 g/dL 6.4-8.2 [facility] Sodium [Moles/Vol] 139 mmol/L 136-145 [facility] WBC (Bld) [#/Vol] 9.7 10*3/uL 4.4-11.0 [facility] Determination of erythrocyte mean corpuscular volume (MCV)Ordered By: Marce Jack on 07-04-2023 MCV (RBC) [Entitic vol] 90.9 fL 81-99 [facility] Erythrocyte distribution wid th ratioOrdered By: Marce Jack on 07-04-2023 Erythrocyte distribution width (RBC) [Ratio] 14.0 % 11.6-14.6 [facility] Erythrocyte distribution wid th standard deviationOrdered By: Marce Jack on 07-04-2023 Erythrocyte distribution width (RBC) [Entitic vol] 47.0 fL 35.1-43.9 [facility] Hematocrit Auto (Bld) [Volum e fraction]Ordered By: Marce Jack on 07-04-2023 Hematocrit (Bld) [Volume fraction] 42.1 % 37-47 [facility] Laboratory - Chemistry and C hemistry - challengeOrdered By: Marce Jack on 07-04-2023 Albumin/Globulin [Mass ratio] 1.1 {ratio} 0.9-2.4 [facility] ALP [Catalytic activity/Vol] 66 U/L 45-117 [facility] ALT [Catalytic activity/Vol] 24 U/L 13-56 [facility] CO2 [Moles/Vol] 24.0 mmol/L 21.0-32.0 [facility] Globulin (S) [Mass/Vol] 3.7 g/dL 2.2-4.2 [facility] Urea nitrogen/Creatinine [Mass ratio] 19.0 mg/mg 10-20 [facility] Laboratory - Hematology and Cell countsOrdered By: Marce Jack on 07-04-2023 MCH (RBC) [Entitic mass] 28.9 pg 27.0-32.0 [facility] MCHC (RBC) [Mass/Vol] 31.8 g/dL 32-36 [facility] Platelet mean volume (Bld) [Entitic vol] 8.9 fL 6.2-12.0 [facility] Platelets (Bld) [#/Vol] 311 10*3/uL 150-450 [facility] No Panel InformationOrdered By: Marce Jack on 07-04-2023 Estimated GFR (MDRD) Amer 68 mL/min >60 [facility] Comment on above: GFR Calc Estimated GFR (MDRD) Non-Af Amer 56 mL/min >60 [facility] Comment on above: Non- GFR Calc RBC Auto (Bld) [#/Vol]Ordere d By: Marce Jack on 07-04-2023 RBC (Bld) [#/Vol] 4.63 10*6/uL 4.2-5.4 [facility] Serum or plasma calcium nicole urement (mass/volume)Ordered By: Marce Jack on 07-04-2023 Calcium [Mass/Vol] 9.4 mg/dL 8.5-10.1 [facility] Serum or plasma creatinine m easurement (mass/volume)Ordered By: Marce Jack on 07-04-2023 Creatinine [Mass/Vol] 1.05 mg/dL 0.55-1.02 [facility] Comment on above: The validity of the calculated GFR & GFRAA in patients over 70 years has not been determined. Clinical correlation is essential. Serum or plasma thyroid stim ulating hormone (TSH) measurement (units/volume)Ordered By: Marce Jack on 07-04-2023 TSH Qn 1.93 uIU/mL 0.358-3.74 [facility] Serum or plasma urea nitroge n measurement (mass/volume)Ordered By: Marce Jack on 07-04-2023 Urea nitrogen [Mass/Vol] 20 mg/dL 7-18 [facility] Thin prep Papanicolaou smear with manual screeningOrdered By: Marce Jack on 07-04-2023 Thin prep Papanicolaou smear with manual screening 4.0 g/dL 3.2-5.0 [facility] Thin prep Papanicolaou smear with manual screening 27 U/L 15-37 [facility] Thin prep Papanicolaou smear with manual screening 9 5-15 [facility] Whole blood hemoglobin A1c/t otal hemoglobin ratio (mass fraction)Ordered By: Marce Jack on 07-04-2023 HbA1c (Bld) [Mass fraction] 6.2 % 3.8-5.6 [facility] Comment on above: Normal < 5.7 % Predi abetic 5.7 - 6.4 % Diabetic >or= 6.5 % Please note range changes. Absolute lymphocyte countOrd ered By: Chadwick Randleyusra on 05-11-2023 Lymphocytes Auto (Unsp spec) [#/Vol] 1.84 10*3/uL 0.83-4.51 [facility] Automated lymphocyte count a s percentage of total leukocytesOrdered By: Chadwick Jeimy on 05-11-2023 Lymphocytes/100 WBC Auto (Unsp spec) 22.0 % 19-41 [facility] Basophil percentageOrdered B y: Chadwick Jeimy on 05-11-2023 Basophils/100 WBC (Bld) 0.7 % 0-1 [facility] Bilirubin [Mass/Vol] 0.80 mg/dL 0.20-1.00 [facility] Comment on above: For patients on eltr ombopag therapy, use of Dimension [place] TBIL is not recommended. Chloride [Moles/Vol] 105 mmol/L 98-107 [facility] Eosinophils/100 WBC (Bld) 2.0 % 0-5 [facility] Glucose [Mass/Vol] 124 mg/dL 74-106 [facility] Comment on above: Fasting Glucose resu lt from 100 to 125 mg/dL suggests IMPAIRED HOMEOSTASIS per A.D.A. criteria. Hemoglobin (Bld) [Mass/Vol] 13.2 g/dL 12.0-15.0 [facility] Monocytes/100 WBC (Bld) 9.3 % 0-10 [facility] Neutrophils (Bld) [#/Vol] 5.5 10*3/uL 2.0-7.7 [facility] Neutrophils/100 WBC (Bld) 65.6 % 47-70 [facility] Potassium [Moles/Vol] 4.2 mmol/L 3.5-5.1 [facility] Protein [Mass/Vol] 8.0 g/dL 6.4-8.2 [facility] Sodium [Moles/Vol] 134 mmol/L 136-145 [facility] WBC (Bld) [#/Vol] 8.4 10*3/uL 4.4-11.0 [facility] Determination of erythrocyte mean corpuscular volume (MCV)Ordered By: Chadwick Munson on 05-11-2023 MCV (RBC) [Entitic vol] 91.5 fL 81-99 [facility] Erythrocyte distribution wid th ratioOrdered By: [facility] Jeimy on 05-11-2023 Erythrocyte distribution width (RBC) [Ratio] 13.9 % 11.6-14.6 [facility] Erythrocyte distribution wid th standard deviationOrdered By: [facility] on 05-11-2023 Erythrocyte distribution width (RBC) [Entitic vol] 46.5 fL 35.1-43.9 [facility] Hematocrit Auto (Bld) [Volum e fraction]Ordered By: [facility] on 05-11-2023 Hematocrit (Bld) [Volume fraction] 41.9 % 37-47 [facility] Immature granulocytes/100 WB C Auto (Bld)Ordered By: [facility] on 05-11-2023 Immature granulocytes/100 WBC (Bld) 0.400 % 0.0-0.9 [facility] Comment on above: IG% - Immature Granu locytes (promyelocytes, myelocytes and metamyelocytes) > 1% indicates that a LEFT SHIFT is Present. Laboratory - Chemistry and C hemistry - challengeOrdered By: [facility] on 05-11-2023 Albumin/Globulin [Mass ratio] 1.0 {ratio} 0.9-2.4 [facility] ALP [Catalytic activity/Vol] 81 U/L 45-117 [facility] ALT [Catalytic activity/Vol] 22 U/L 13-56 [facility] CO2 [Moles/Vol] 26.0 mmol/L 21.0-32.0 [facility] Globulin (S) [Mass/Vol] 4.1 g/dL 2.2-4.2 [facility] Urea nitrogen/Creatinine [Mass ratio] 12.2 mg/mg 10-20 [facility] Laboratory - Hematology and Cell countsOrdered By: [facility] on 05-11-2023 MCH (RBC) [Entitic mass] 28.8 pg 27.0-32.0 [facility] MCHC (RBC) [Mass/Vol] 31.5 g/dL 32-36 [facility] Nucleated RBC/100 WBC (Bld) [Ratio] 0 % 0-5 [facility] Platelets (Bld) [#/Vol] 256 10*3/uL 150-450 [facility] No Panel InformationOrdered By: Chadwick Munson on 05-11-2023 Estimated Creatinine Clearance Calc 45.66 ml/min [facility] Estimated GFR (MDRD) Amer 61 mL/min >60 [facility] Comment on above: GFR Calc Estimated GFR (MDRD) Non-Af Amer 50 mL/min >60 [facility] Comment on above: Non- GFR Calc Platelet mean volume Shan-Ec ker (Bld) [Entitic vol]Ordered By: Chadwick Munson on 05-11-2023 Platelet mean volume (Bld) [Entitic vol] 8.0 fL 6.2-12.0 [facility] RBC Auto (Bld) [#/Vol]Ordere d By: Chadwick Munson on 05-11-2023 RBC (Bld) [#/Vol] 4.58 10*6/uL 4.2-5.4 [facility] Serum or plasma calcium nicole urement (mass/volume)Ordered By: Chadwick Munson on 05-11-2023 Calcium [Mass/Vol] 9.4 mg/dL 8.5-10.1 [facility] Serum or plasma creatinine m easurement (mass/volume)Ordered By: Chadwick Munson on 05-11-2023 Creatinine [Mass/Vol] 1.15 mg/dL 0.55-1.02 [facility] Comment on above: The validity of the calculated GFR & GFRAA in patients over 70 years has not been determined. Clinical correlation is essential. Serum or plasma urea nitroge n measurement (mass/volume)Ordered By: Chadwick Munson on 05-11-2023 Urea nitrogen [Mass/Vol] 14 mg/dL 7-18 [facility] Thin prep Papanicolaou smear with manual screeningOrdered By: Chadwick Munson on 05-11-2023 Thin prep Papanicolaou smear with manual screening 3.9 g/dL 3.2-5.0 [facility] Thin prep Papanicolaou smear with manual screening 18 U/L 15-37 [facility] Thin prep Papanicolaou smear with manual screening 3 5-15 [facility] Absolute lymphocyte countOrd ered By: Marce Jack on 03-20-2023 Lymphocytes Auto (Unsp spec) [#/Vol] 2.23 10*3/uL 0.83-4.51 [facility] Basophil percentageOrdered B y: Marce Jack on 03-20-2023 Basophils/100 WBC (Bld) 0.8 % 0-1 [facility] Bilirubin [Mass/Vol] 1.00 mg/dL 0.20-1.00 [facility] Comment on above: For patients on eltr ombopag therapy, use of Dimension [place] TBIL is not recommended. Chloride [Moles/Vol] 103 mmol/L 98-107 [facility] Cholesterol [Mass/Vol] 259 mg/dL <200 [facility] Comment on above: <200 mg/dL Desirable 200-240 mg/dL Borderline >240 mg/dL High Risk Eosinophils/100 WBC (Bld) 1.9 % 0-5 [facility] Glucose [Mass/Vol] 123 mg/dL 74-106 [facility] Comment on above: Fasting Glucose resu lt from 100 to 125 mg/dL suggests IMPAIRED HOMEOSTASIS per A.D.A. criteria. Neutrophils (Bld) [#/Vol] 4.7 10*3/uL 2.0-7.7 [facility] Neutrophils/100 WBC (Bld) 59.2 % 47-70 [facility] Potassium [Moles/Vol] 3.9 mmol/L 3.5-5.1 [facility] Protein [Mass/Vol] 8.2 g/dL 6.4-8.2 [facility] Sodium [Moles/Vol] 136 mmol/L 136-145 [facility] Triglyceride [Mass/Vol] 150 mg/dL <199 [facility] Comment on above: The drugs N-Acetylcy steine and Metamizole may falsely depress this assay.Serum Triglycerides Reference Interval Normal <150 mg/dL Borderline high 150 - 199 mg/dL High 200 - 499 mg/dL Very High > or = 500 mg/dL WBC (Bld) [#/Vol] 8.0 10*3/uL 4.4-11.0 [facility] Blood erythrocytes count (nu mber/volume)Ordered By: Marce Jack on 03-20-2023 RBC (Bld) [#/Vol] 4.81 10*6/uL 4.2-5.4 [facility] Blood hemoglobin measurement (mass/volume)Ordered By: Marce Jack on 03-20-2023 Hemoglobin (Bld) [Mass/Vol] 13.7 g/dL 12.0-15.0 [facility] Blood lymphocytes/100 leukoc ytesOrdered By: Marce Jack on 03-20-2023 Lymphocytes/100 WBC (Bld) 28.0 % 19-41 [facility] Blood monocytes/100 leukocyt esOrdered By: Marce Jack on 03-20-2023 Monocytes/100 WBC (Bld) 9.7 % 0-10 [facility] Blood platelet mean volumeOr dered By: Marce Jack on 03-20-2023 Platelet mean volume (Bld) [Entitic vol] 8.8 fL 6.2-12.0 [facility] Determination of erythrocyte mean corpuscular volume (MCV)Ordered By: Marce Jack on 03-20-2023 MCV (RBC) [Entitic vol] 91.3 fL 81-99 [facility] Hematocrit Auto (Bld) [Volum e fraction]Ordered By: Marce Jack on 03-20-2023 Hematocrit (Bld) [Volume fraction] 43.9 % 37-47 [facility] Laboratory - Chemistry and C hemistry - challengeOrdered By: Marce Jack on 03-20-2023 ALP [Catalytic activity/Vol] 70 U/L 45-117 [facility] ALT [Catalytic activity/Vol] 20 U/L 13-56 [facility] CO2 [Moles/Vol] 26.0 mmol/L 21.0-32.0 [facility] Cobalamin (Vitamin B12) [Mass/Vol] 301 pg/mL 211-911 [facility] Globulin (S) [Mass/Vol] 4.1 g/dL 2.2-4.2 [facility] Magnesium [Mass/Vol] 2.5 mg/dL 1.6-2.6 [facility] Urea nitrogen/Creatinine [Mass ratio] 11.6 mg/mg 10-20 [facility] Laboratory - Hematology and Cell countsOrdered By: Marce Jack on 03-20-2023 Erythrocyte distribution width (RBC) [Entitic vol] 52.7 fL 35.1-43.9 [facility] Erythrocyte distribution width (RBC) [Ratio] 15.7 % 11.6-14.6 [facility] Immature granulocytes/100 WBC (Bld) 0.400 % 0.0-0.9 [facility] Comment on above: IG% - Immature Granu locytes (promyelocytes, myelocytes and metamyelocytes) > 1% indicates that a LEFT SHIFT is Present. MCH (RBC) [Entitic mass] 28.5 pg 27.0-32.0 [facility] Nucleated RBC/100 WBC (Bld) [Ratio] 0 % 0-5 [facility] MCHC Auto (RBC) [Mass/Vol]Or dered By: aMrce Jack on 03-20-2023 MCHC (RBC) [Mass/Vol] 31.2 g/dL 32-36 [facility] No Panel InformationOrdered By: Marce Jack on 03-20-2023 Estimated GFR (MDRD) Amer 63 mL/min >60 [facility] Comment on above: GFR Calc Estimated GFR (MDRD) Non-Af Amer 52 mL/min >60 [facility] Comment on above: Non- GFR Calc Thyroid Stimulating Hormone (TSH) 2.77 uIU/mL 0.358-3.74 [facility] Vitamin D 25-Hydroxy 29.6 ng/mL [facility] Comment on above: Vitamin D 25(OH) Sta tus Range Deficiency <20 ng/mL (50nmol/L) Insufficiency 20 - 30 ng/mL (50 - 75 nmol/L) Sufficiency 30 - 100 ng/mL (75 - 250 nmol/L) Toxicity >100 ng/mL (>250 nmol/L) Platelets bldOrdered By: Veronica Jack on 03-20-2023 Platelets (Bld) [#/Vol] 317 10*3/uL 150-450 [facility] Serum or plasma albumin nicole urement (mass/volume)Ordered By: Marce Jack on 03-20-2023 Albumin [Mass/Vol] 4.1 g/dL 3.2-5.0 [facility] Serum or plasma albumin/glob ulin mass ratioOrdered By: Marce Jack on 03-20-2023 Albumin/Globulin [Mass ratio] 1.0 {ratio} 0.9-2.4 [facility] Serum or plasma calcium nicole urement (mass/volume)Ordered By: Marce Jack on 03-20-2023 Calcium [Mass/Vol] 9.2 mg/dL 8.5-10.1 [facility] Serum or plasma cholesterol in HDL measurement (mass/volume)Ordered By: Marce Jack on 03-20-2023 Cholesterol in HDL [Mass/Vol] 53 mg/dL >40 [facility] Comment on above: The drugs N-Acetylcy steine and Metamizole may falsely depress this assay. Reference Range HDL <40 mg/dL Low HDL Cholesterol HDL >or= 60 mg/dL High HDL Cholesterol Serum or plasma cholesterol in VLDL measurement (mass/volume)Ordered By: Marce Jack on 03-20-2023 Cholesterol in VLDL [Mass/Vol] 30 mg/dL 5-40 [facility] Serum or plasma creatinine m easurement (mass/volume)Ordered By: Marce Jack on 03-20-2023 Creatinine [Mass/Vol] 1.12 mg/dL 0.55-1.02 [facility] Comment on above: The validity of the calculated GFR & GFRAA in patients over 70 years has not been determined. Clinical correlation is essential. Serum or plasma low density lipoprotein (LDL) cholesterol measurement (mass/volume)Ordered By: Marce Jack on 03-20-2023 Cholesterol in LDL [Mass/Vol] 176 mg/dL 0-130 [facility] Serum or plasma urea nitroge n measurement (mass/volume)Ordered By: Marce Jack on 03-20-2023 Urea nitrogen [Mass/Vol] 13 mg/dL 7-18 [facility] Thin prep Papanicolaou smear with manual screeningOrdered By: Marce Jack 03-20-2023 Thin prep Papanicolaou smear with manual screening 19 U/L 15-37 [facility] Thin prep Papanicolaou smear with manual screening 7 5-15 [facility] Whole blood hemoglobin A1c/t otal hemoglobin ratio (mass fraction)Ordered By: Marce Jack on 03-20-2023 HbA1c (Bld) [Mass fraction] 6.0 % 3.8-5.6 [facility] Comment on above: Normal < 5.7 % Predi abetic 5.7 - 6.4 % Diabetic >or= 6.5 % Please note range changes. Absolute lymphocyte countOrd ered By: Chadwick Munson on 02-02-2023 Lymphocytes Auto (Unsp spec) [#/Vol] 1.68 10*3/uL 0.83-4.51 [facility] Basophil percentageOrdered B y: Chadwick Munson on 02-02-2023 Creatinine [Mass/Vol] 1.2 mg/dL 0.55-1.02 [facility] Basophils/100 WBC (Bld) 0.6 % 0-1 [facility] Bilirubin [Mass/Vol] 0.60 mg/dL 0.20-1.00 [facility] Comment on above: For patients on eltr ombopag therapy, use of Dimension [place] TBIL is not recommended. Chloride [Moles/Vol] 104 mmol/L 98-107 [facility] Eosinophils/100 WBC (Bld) 0.6 % 0-5 [facility] Glucose [Mass/Vol] 156 mg/dL 74-106 [facility] Comment on above: Fasting Glucose resu lt greater than or equal to 126 mg/dL suggests DIABETES MELLITUS per A.D.A. criteria. Neutrophils (Bld) [#/Vol] 6.0 10*3/uL 2.0-7.7 [facility] Neutrophils/100 WBC (Bld) 71.7 % 47-70 [facility] Potassium [Moles/Vol] 4.4 mmol/L 3.5-5.1 [facility] Protein [Mass/Vol] 7.7 g/dL 6.4-8.2 [facility] Sodium [Moles/Vol] 135 mmol/L 136-145 [facility] WBC (Bld) [#/Vol] 8.4 10*3/uL 4.4-11.0 [facility] Blood erythrocytes count (nu mber/volume)Ordered By: [facility] on 02-02-2023 RBC (Bld) [#/Vol] 4.40 10*6/uL 4.2-5.4 [facility] Blood hemoglobin measurement (mass/volume)Ordered By: [facility] on 02-02-2023 Hemoglobin (Bld) [Mass/Vol] 12.1 g/dL 12.0-15.0 [facility] Blood lymphocytes/100 leukoc ytesOrdered By: [facility] Jeimy on 02-02-2023 Lymphocytes/100 WBC (Bld) 20.0 % 19-41 [facility] Blood monocytes/100 leukocyt esOrdered By: [facility] Jeimy on 02-02-2023 Monocytes/100 WBC (Bld) 6.4 % 0-10 [facility] Blood platelet mean volumeOr dered By: [facility] Jeimy on 02-02-2023 Platelet mean volume (Bld) [Entitic vol] 8.5 fL 6.2-12.0 [facility] Determination of erythrocyte mean corpuscular volume (MCV)Ordered By: [facility] Jeimy on 02-02-2023 MCV (RBC) [Entitic vol] 87.7 fL 81-99 [facility] Hematocrit Auto (Bld) [Volum e fraction]Ordered By: [facility] Jeimy on 02-02-2023 Hematocrit (Bld) [Volume fraction] 38.6 % 37-47 [facility] Laboratory - Chemistry and C hemistry - challengeOrdered By: Chadwick Munson on 02-02-2023 GFR/1.73 sq M.predicted among non-blacks MDRD (S/P/Bld) [Vol rate/Area] 47.0000 mL/min/{1.73_m2} >60 [facility] ALP [Catalytic activity/Vol] 77 U/L 45-117 [facility] ALT [Catalytic activity/Vol] 18 U/L 13-56 [facility] CO2 [Moles/Vol] 26.0 mmol/L 21.0-32.0 [facility] Globulin (S) [Mass/Vol] 4.4 g/dL 2.2-4.2 [facility] Urea nitrogen/Creatinine [Mass ratio] 8.4 mg/mg 10- [facility] Laboratory - Hematology and Cell countsOrdered By: Chadwick Munson on 02-02-2023 Erythrocyte distribution width (RBC) [Entitic vol] 51.1 fL 35.1-43.9 [facility] Erythrocyte distribution width (RBC) [Ratio] 15.7 % 11.6-14.6 [facility] Immature granulocytes/100 WBC (Bld) 0.700 % 0.0-0.9 [facility] Comment on above: IG% - Immature Granu locytes (promyelocytes, myelocytes and metamyelocytes) > 1% indicates that a LEFT SHIFT is Present. MCH (RBC) [Entitic mass] 27.5 pg 27.0-32.0 [facility] Nucleated RBC/100 WBC (Bld) [Ratio] 0 % 0-5 [facility] MCHC Auto (RBC) [Mass/Vol]Or dered By: Chadwick Munson on 02-02-2023 MCHC (RBC) [Mass/Vol] 31.3 g/dL 32-36 [facility] No Panel InformationOrdered By: Chadwick Munson on 02-02-2023 Estimated Creatinine Clearance Calc 49.07 ml/min [facility] Estimated GFR (MDRD) Amer 66 mL/min >60 [facility] Comment on above: GFR Calc Estimated GFR (MDRD) Non-Af Amer 55 mL/min >60 [facility] Comment on above: Non- GFR Calc Platelets bldOrdered By: Luis Munson on 02-02-2023 Platelets (Bld) [#/Vol] 363 10*3/uL 150-450 [facility] Serum or plasma albumin nicole urement (mass/volume)Ordered By: Chadwick Munson on 02-02-2023 Albumin [Mass/Vol] 3.3 g/dL 3.2-5.0 [facility] Serum or plasma albumin/glob ulin mass ratioOrdered By: Chadwick Munson on 02-02-2023 Albumin/Globulin [Mass ratio] 0.8 {ratio} 0.9-2.4 [facility] Serum or plasma calcium nicole urement (mass/volume)Ordered By: Chadwick Munson on 02-02-2023 Calcium [Mass/Vol] 9.1 mg/dL 8.5-10.1 [facility] Serum or plasma creatinine m easurement (mass/volume)Ordered By: Chadwick Munson on 02-02-2023 Creatinine [Mass/Vol] 1.07 mg/dL 0.55-1.02 [facility] Comment on above: The validity of the calculated GFR & GFRAA in patients over 70 years has not been determined. Clinical correlation is essential. Serum or plasma urea nitroge n measurement (mass/volume)Ordered By: Chadwick Munson on 02-02-2023 Urea nitrogen [Mass/Vol] 9 mg/dL 7-18 [facility] Thin prep Papanicolaou smear with manual screeningOrdered By: Chadwick Munson on 02-02-2023 Thin prep Papanicolaou smear with manual screening 14 U/L 15-37 [facility] Thin prep Papanicolaou smear with manual screening 5 5-15 [facility] Iron (Unsp spec) [Mass/Mass] Ordered By: Chadwick Munson on 11-10-2022 Iron [Mass/Vol] 29 ug/dL Low 50-170 [facility] Iron measurement (mass/mass) Ordered By: Chadwick Munson on 11-10-2022 Iron (Unsp spec) [Mass/Mass] 29 ug/dL Low 50-170 [facility] Iron saturation [Mass fracti on]Ordered By: Chadwick Munson on 11-10-2022 Iron Saturation 8.8 % Low 15.0-55.0 [facility] - Chemistry and C hemistry - challengeOrdered By: Chadwick Munson on 11-10-2022 Cobalamin (Vitamin B12) [Mass/Vol] 324 pg/mL 211-911 [facility] No Panel InformationOrdered By: Chadwick Munson on 11-10-2022 Total Iron Binding Capacity 329 ug/dL 250-450 [facility] Serum or plasma ferritin aline surement (mass/volume)Ordered By: Chadwick Munson on 11-10-2022 Ferritin [Mass/Vol] 112 ng/mL 8-252 [facility] Serum or plasma iron saturat ion measurement (mass fraction)Ordered By: Chadwick Munson on 11-10-2022 Iron saturation [Mass fraction] 8.8 % Low 15.0-55.0 [facility] Absolute lymphocyte countOrd ered By: Chadwick Munson on 10-24-2022 Lymphocytes Auto (Unsp spec) [#/Vol] 1.20 10*3/uL 0.83-4.51 [facility] Basophil percentageOrdered B y: Chadwick Munson on 10-24-2022 Basophils/100 WBC (Bld) 0.5 % 0-1 [facility] Bilirubin [Mass/Vol] 0.30 mg/dL 0.20-1.00 [facility] Comment on above: For patients on eltr ombopag therapy, use of Dimension [place] TBIL is not recommended. Chloride [Moles/Vol] 104 mmol/L 98-107 [facility] Eosinophils/100 WBC (Bld) 1.8 % 0-5 [facility] Glucose [Mass/Vol] 127 mg/dL 74-106 [facility] Comment on above: Fasting Glucose resu lt greater than or equal to 126 mg/dL suggests DIABETES MELLITUS per A.D.A. criteria. Neutrophils (Bld) [#/Vol] 8.8 10*3/uL 2.0-7.7 [facility] Neutrophils/100 WBC (Bld) 79.5 % 47-70 [facility] Potassium [Moles/Vol] 4.5 mmol/L 3.5-5.1 [facility] Protein [Mass/Vol] 7.2 g/dL 6.4-8.2 [facility] Sodium [Moles/Vol] 134 mmol/L 136-145 [facility] WBC (Bld) [#/Vol] 11.1 10*3/uL 4.4-11.0 [facility] Blood erythrocytes count (nu mber/volume)Ordered By: Chadwick Munson on 10-24-2022 RBC (Bld) [#/Vol] 3.97 10*6/uL 4.2-5.4 [facility] Blood hemoglobin measurement (mass/volume)Ordered By: Chadwick Munson on 10-24-2022 Hemoglobin (Bld) [Mass/Vol] 9.9 g/dL 12.0-15.0 [facility] Blood lymphocytes/100 leukoc ytesOrdered By: [facility] on 10-24-2022 Lymphocytes/100 WBC (Bld) 10.8 % 19-41 [facility] Blood monocytes/100 leukocyt esOrdered By: [facility]y on 10-24-2022 Monocytes/100 WBC (Bld) 6.9 % 0-10 [facility] Blood platelet mean volumeOr dered By: [facility] Jeimy on 10-24-2022 Platelet mean volume (Bld) [Entitic vol] 8.1 fL 6.2-12.0 [facility] Determination of erythrocyte mean corpuscular volume (MCV)Ordered By: [facility] Jeimy on 10-24-2022 MCV (RBC) [Entitic vol] 82.4 fL 81-99 [facility] Hematocrit Auto (Bld) [Volum e fraction]Ordered By: [facility] Jeimy on 10-24-2022 Hematocrit (Bld) [Volume fraction] 32.7 % 37-47 [facility] - Chemistry and C hemistry - challengeOrdered By: [facility] Je[facility]y on 10-24-2022 ALP [Catalytic activity/Vol] 115 U/L 45-117 [facility] ALT [Catalytic activity/Vol] 15 U/L 13-56 [facility] CO2 [Moles/Vol] 27.0 mmol/L 21.0-32.0 [facility] Globulin (S) [Mass/Vol] 4.3 g/dL 2.2-4.2 [facility] Urea nitrogen/Creatinine [Mass ratio] 15.3 mg/mg 10-20 [facility] - Hematology and Cell countsOrdered By: [facility] Je[facility]y on 10-24-2022 Erythrocyte distribution width (RBC) [Entitic vol] 51.8 fL 35.1-43.9 [facility] Erythrocyte distribution width (RBC) [Ratio] 17.4 % 11.6-14.6 [facility] Immature granulocytes/100 WBC (Bld) 0.500 % 0.0-0.9 [facility] Comment on above: IG% - Immature Granu locytes (promyelocytes, myelocytes and metamyelocytes) > 1% indicates that a LEFT SHIFT is Present. MCH (RBC) [Entitic mass] 24.9 pg 27.0-32.0 [facility] Nucleated RBC/100 [facility]Bld) [[facility] [[facility]/Vol]Or dered By: Chadwick Munson on 10-24-2022 MCHC (RBC) [Mass/Vol] 30.3 g/dL 32-36 [facility] No Panel InformationOrdered By: Chadwick Munson on 10-24-2022 Estimated Creatinine Clearance Calc 53.58 ml/min [facility] Estimated GFR (MDRD) Amer 73 mL/min >60 [facility] Comment on above: GFR Calc Estimated GFR (MDRD) Non-Af Amer 61 mL/min >60 [facility] Comment on above: Non- GFR Calc Platelets bldOrdered By: Luis Munson on 10-24-2022 Platelets (Bld) [#/Vol] 354 10*3/uL 150-450 [facility] Serum or plasma albumin nicole urement (mass/volume)Ordered By: Chadwick Munson on 10-24-2022 Albumin [Mass/Vol] 2.9 g/dL 3.2-5.0 [facility] Serum or plasma albumin/glob ulin mass ratioOrdered By: Chadwick Munson on 10-24-2022 Albumin/Globulin [Mass ratio] 0.7 {ratio} 0.9-2.4 [facility] Serum or plasma calcium nicole urement (mass/volume)Ordered By: Chadwick Munson on 10-24-2022 Calcium [Mass/Vol] 8.8 mg/dL 8.5-10.1 [facility] Serum or plasma creatinine m easurement (mass/volume)Ordered By: Chadwick Munson on 10-24-2022 Creatinine [Mass/Vol] 0.98 mg/dL 0.55-1.02 [facility] Comment on above: The validity of the calculated GFR & GFRAA in patients over 70 years has not been determined. Clinical correlation is essential. Serum or plasma urea nitroge n measurement (mass/volume)Ordered By: Chadwick Munson on 10-24-2022 Urea nitrogen [Mass/Vol] 15 mg/dL 7-18 [facility] Thin prep Papanicolaou smear with manual screeningOrdered By: Chadwick Munson on 10-24-2022 Thin prep Papanicolaou smear with manual screening 15 U/L 15-37 [facility] Thin prep Papanicolaou smear with manual screening 3 5-15 [facility] Absolute lymphocyte countOrd ered By: Dr. Munson on 08-01-2022 Lymphocytes Auto (Unsp spec) [#/Vol] 1.27 10*3/uL 0.83-4.51 [facility] Basophil percentageOrdered B y: Dr. Munson on 08-01-2022 Basophils/100 WBC (Bld) 0.5 % 0-1 [facility] Bilirubin [Mass/Vol] 0.80 mg/dL 0.20-1.00 [facility] Comment on above: For patients on eltr ombopag therapy, use of Dimension [place] TBIL is not recommended. Chloride [Moles/Vol] 107 mmol/L 98-107 [facility] Eosinophils/100 WBC (Bld) 0.7 % 0-5 [facility] Glucose [Mass/Vol] 115 mg/dL 74-106 [facility] Comment on above: Fasting Glucose resu lt from 100 to 125 mg/dL suggests IMPAIRED HOMEOSTASIS per A.D.A. criteria. Neutrophils (Bld) [#/Vol] 4.1 10*3/uL 2.0-7.7 [facility] Neutrophils/100 WBC (Bld) 69.4 % 47-70 [facility] Potassium [Moles/Vol] 4.1 mmol/L 3.5-5.1 [facility] Protein [Mass/Vol] 7.3 g/dL 6.4-8.2 [facility] Sodium [Moles/Vol] 135 mmol/L 136-145 [facility] WBC (Bld) [#/Vol] 5.9 10*3/uL 4.4-11.0 [facility] Blood erythrocytes count (nu mber/volume)Ordered By: Dr. Munson on 08-01-2022 RBC (Bld) [#/Vol] 3.87 10*6/uL 4.2-5.4 [facility] Blood hemoglobin measurement (mass/volume)Ordered By: Dr. Munson on 08-01-2022 Hemoglobin (Bld) [Mass/Vol] 11.8 g/dL 12.0-15.0 [facility] Blood lymphocytes/100 leukoc ytesOrdered By: Dr. Munson on 08-01-2022 Lymphocytes/100 WBC (Bld) 21.4 % 19-41 [facility] Blood monocytes/100 leukocyt esOrdered By: Dr. Munson on 08-01-2022 Monocytes/100 WBC (Bld) 7.8 % 0-10 [facility] Blood platelet mean volumeOr dered By: Dr. Munson on 08-01-2022 Platelet mean volume (Bld) [Entitic vol] 8.1 fL 6.2-12.0 [facility] Determination of erythrocyte mean corpuscular volume (MCV)Ordered By: Dr. Munson on 08-01-2022 MCV (RBC) [Entitic vol] 93.5 fL 81-99 [facility] Hematocrit Auto (Bld) [Volum e fraction]Ordered By: Dr. Munson on 08-01-2022 Hematocrit (Bld) [Volume fraction] 36.2 % 37-47 [facility] - Chemistry and C hemistry - challengeOrdered By: Dr. Munson on 08-01-2022 ALP [Catalytic activity/Vol] 81 U/L 45-117 [facility] ALT [Catalytic activity/Vol] 20 U/L 13-56 [facility] CO2 [Moles/Vol] 26.0 mmol/L 21.0-32.0 [facility] Globulin (S) [Mass/Vol] 3.6 g/dL 2.2-4.2 [facility] Urea nitrogen/Creatinine [Mass ratio] 11.3 mg/mg 10-20 [facility] - Hematology and Cell countsOrdered By: Dr. Munson on 08-01-2022 Erythrocyte distribution width (RBC) [Entitic vol] 52.2 fL 35.1-43.9 [facility] Erythrocyte distribution width (RBC) [Ratio] 15.2 % 11.6-14.6 [facility] Immature granulocytes/100 WBC (Bld) 0.200 % 0.0-0.9 [facility] Comment on above: IG% - Immature Granu locytes (promyelocytes, myelocytes and metamyelocytes) > 1% indicates that a LEFT SHIFT is Present. MCH (RBC) [Entitic mass] 30.5 pg 27.0-32.0 [facility] Nucleated RBC/100 WBC (Bld) [Ratio] 0 % 0-5 [facility] MCHC Auto (RBC) [Mass/Vol]Or dered By: Dr. Munson on 08-01-2022 MCHC (RBC) [Mass/Vol] 32.6 g/dL 32-36 [facility] No Panel InformationOrdered By: Dr. Munson on 08-01-2022 Estimated Creatinine Clearance Calc 46.27 ml/min [facility] Estimated GFR (MDRD) Amer 61 mL/min >60 [facility] Comment on above: GFR Calc Estimated GFR (MDRD) Non-Af Amer 50 mL/min >60 [facility] Comment on above: Non- GFR Calc Platelets bldOrdered By: Dr. Munson on 08-01-2022 Platelets (Bld) [#/Vol] 195 10*3/uL 150-450 [facility] Serum or plasma albumin nicole urement (mass/volume)Ordered By: Dr. Munson on 08-01-2022 Albumin [Mass/Vol] 3.7 g/dL 3.2-5.0 [facility] Serum or plasma albumin/glob ulin mass ratioOrdered By: Dr. Munson on 08-01-2022 Albumin/Globulin [Mass ratio] 1.0 {ratio} 0.9-2.4 [facility] Serum or plasma calcium nicole urement (mass/volume)Ordered By: Dr. Munson on 08-01-2022 Calcium [Mass/Vol] 9.0 mg/dL 8.5-10.1 [facility] Serum or plasma creatinine m easurement (mass/volume)Ordered By: Dr. Munson on 08-01-2022 Creatinine [Mass/Vol] 1.15 mg/dL 0.55-1.02 [facility] Comment on above: The validity of the calculated GFR & GFRAA in patients over 70 years has not been determined. Clinical correlation is essential. Serum or plasma urea nitroge n measurement (mass/volume)Ordered By: Dr. Munson on 08-01-2022 Urea nitrogen [Mass/Vol] 13 mg/dL 7-18 [facility] Thin prep Papanicolaou smear with manual screeningOrdered By: Dr. Munson on 08-01-2022 Thin prep Papanicolaou smear with manual screening 22 U/L 15-37 [facility] Thin prep Papanicolaou smear with manual screening 2 5-15 [facility] Blood manual differential co mment interpretation (narrative result)Ordered By: Shavonne Blanchard on 06-15-2022 Manual differential comment Adams (Bld) [Interp] SCANNED [facility] [employer] mix RAST testO rdered By: Shavonne Blanchard on 06-15-2022 Microcytosis 1+ [facility] - Hematology and Cell countsOrdered By: Shavonne Blanchard on 06-15-2022 Anisocytosis Ql (Bld) 2+ [facility] Macrocytes Ql (Bld)Ordered B y: Shavonne Blanchard on 06-15-2022 Macrocytosis 1+ [facility] Macrocytes detectionOrdered By: Shavonne Blanchard on 06-15-2022 Macrocytes Ql (Bld) 1+ [facility] Manual differential comment Adams (Bld) [Interp]Ordered By: Shavonne Blanchard on 06-15-2022 Differential Comment SCANNED [facility] Thin prep Papanicolaou smear with manual screeningOrdered By: Shavonne Blanchard on 06-15-2022 Thin prep Papanicolaou smear with manual screening 1+ [facility] Basophil percentageOrdered B y: Dr. Munson on 06-07-2022 Basophil percentage 1 % 0-5 [facility] Bilirubin Test strip Ql (U)O rdered By: Shavonne Blanchard on 06-07-2022 Bilirubin Ql (U) Negative Negative [facility] Blood band neutrophil count as percentage of total leukocytesOrdered By: Dr. Munson on 06-07-2022 Band form neutrophils/100 WBC (Bld) 10 % High 0-5 [facility] Blood eosinophils/100 leukoc ytesOrdered By: Dr. Munson on 06-07-2022 Eosinophils/100 WBC (Bld) 1 % 0-5 [facility] Blood lymphocytes/100 leukoc ytesOrdered By: Dr. Munson on 06-07-2022 Lymphocytes/100 WBC (Bld) 7 % Low 19-41 [facility] Blood monocytes/100 leukocyt esOrdered By: Dr. Munson on 06-07-2022 Monocytes/100 WBC (Bld) 12 % High 0-10 [facility] Blood platelet adequacy dete ction by light microscopyOrdered By: Dr. Munson on 06-07-2022 Platelets LM Ql (Bld) MKD DEC ADEQ [facility] Blood polychromasia detectio n by light microscopyOrdered By: Dr. Munson on 06-07-2022 Polychromasia LM Ql (Bld) 1+ [facility] Blood segmented neutrophils/ [address]: [address] Munson on 06-07-2022 Segmented neutrophils/100 WBC (Bld) 69 % 47-70 [facility] Cells counted Molgen (Bld/Ti ss) [#]Ordered By: Chadwick Munson on 06-07-2022 Differential Total Cells Counted 100 MANUAL DIFF [facility] Glucose Ql (U)Ordered By: Solomon Blanchard on 06-07-2022 Urine Glucose (UA) Normal mg/dl Normal [facility] Hypochromatic red blood cell detectionOrdered By: Dr. Munson on 06-07-2022 Hypochromia Ql (Bld) 1+ [facility] Hypochromia Ql (Bld)Ordered By: Chadwick Munson on 06-07-2022 Hypochromasia 1+ [facility] Ketones Test strip Ql (U)Ord ered By: Shavonne Blanchard on 06-07-2022 Ketones Ql (U) Negative Negative [facility] - Hematology and Cell countsOrdered By: Dr. Munson on 06-07-2022 Myelocytes/100 WBC (Bld) 1 % High 0-0 [facility] Nitrite Test strip Ql (U)Ord ered By: Shavonne Blanchard on 06-07-2022 Nitrite Ql (U) Negative Negative [facility] Pathologist review Adams (Unsp spec) [Interp]Ordered By: Chadwick Munson on 06-07-2022 Differential Pathologist's Review Reviewed [facility] Comment on above: Previous reported re sult: Richa lawson Edited by: RGOOD on 06/08/22:1331Leukocytosis with Neutrophilic left shift. Normocytic anemia.Thrombocytopenia.Clinical correlation necessary.Roldan Gordon M.D. 06/08/22 AMENDED REPORT 06/08/22 1331 PATH REV previously reported as: Richa lawson Platelets LM Ql (Bld)Ordered By: Chadwick Munson on 06-07-2022 Platelet Estimate MKD DEC ADEQ [facility] Polychromasia LM Ql (Bld)Ord ered By: Chadwick Munson on 06-07-2022 Polychromasia 1+ [facility] Protein Test strip Ql (U)Ord ered By: Shavonne Blanchard on 06-07-2022 Protein Ql (U) Negative Negative [facility] RBC Ql (U)Ordered By: Shavonne monroy on 06-07-2022 Urine Occult Blood Negative Negative [facility] Review by pathologistOrdered By: Dr. Munson on 06-07-2022 Pathologist review Adams (Unsp spec) [Interp] Reviewed [facility] Comment on above: Previous reported re sult: Richa lawson Edited by: RGOOD on 06/08/22:1331Leukocytosis with Neutrophilic left shift. Normocytic anemia.Thrombocytopenia.Clinical correlation necessary.Roldan oGrdon M.D. 06/08/22 AMENDED REPORT 06/08/22 1331 PATH REV previously reported as: Richa lawson Segmented neutrophils/100 WB C (Bld)Ordered By: Chadwick Munson on 06-07-2022 Neutrophils/100 WBC (Bld) 69 % 47-70 [facility] Total cell countOrdered By: Dr. Munson on 06-07-2022 Cells counted Molgen (Bld/Tiss) [#] 100 MANUAL DIFF [facility] Trichomonas screening testOr dered By: Chadwick Munson on 06-07-2022 Nucleated Red Blood Cells/100 WBC 1 % 0-5 [facility] Urine blood detectionOrdered By: Shavonne Blanchard on 06-07-2022 RBC Ql (U) Negative Negative [facility] Urine clarityOrdered By: Stephany Blanchard on 06-07-2022 Clarity (U) Clear Clear [facility] Urine color determinationOrd ered By: Shavonne Blanchard on 06-07-2022 Color (U) Yellow Yellow [facility] Urine glucose detectionOrder ed By: Shavonne Blanchard on 06-07-2022 Glucose Ql (U) Normal mg/dl Normal [facility] Urine leukocyte esterase det ection by dipstickOrdered By: Shavonne Blanchard on 06-07-2022 Leukocyte esterase Test strip Ql (U) Negative Negative [facility] Urine pHOrdered By: Shavonne gasca on 06-07-2022 pH (U) 7.0 [pH] 5.0 - 8.0 [facility] Urine specific gravity measu rementOrdered By: Shavonne Blanchard on 06-07-2022 Specific gravity (U) [Rel density] 1.005 1.002-1.030 [facility] Urobilinogen Auto test strip Ql (U)Ordered By: Shavonne Blanchard on 06-07-2022 Urine Urobilinogen Normal mg/dl Normal [facility] Urobilinogen Ql (U) Normal mg/dl Normal [facility] Absolute lymphocyte countOrd ered By: Shavonne Blanchard on 05-31-2022 Lymphocytes Auto (Unsp spec) [#/Vol] 1.00 10*3/uL 0.83-4.51 [facility] Basophil percentageOrdered B y: Shavonne Blanchard on 05-31-2022 Basophil percentage Not Reportable W [facility] Chloride [Moles/Vol] 104 mmol/L 98-107 [facility] Glucose [Mass/Vol] 115 mg/dL 74-106 [facility] Comment on above: Fasting Glucose resu lt from 100 to 125 mg/dL suggests IMPAIRED HOMEOSTASIS per A.D.A. criteria. Neutrophils (Bld) [#/Vol] 7.5 10*3/uL 2.0-7.7 [facility] Potassium [Moles/Vol] 3.9 mmol/L 3.5-5.1 [facility] Sodium [Moles/Vol] 135 mmol/L 136-145 [facility] WBC (Bld) [#/Vol] 9.1 10*3/uL 4.4-11.0 [facility] Blood erythrocytes count (nu mber/volume)Ordered By: Shavonne Blanchard on 05-31-2022 RBC (Bld) [#/Vol] 2.42 10*6/uL 4.2-5.4 [facility] Blood hemoglobin measurement (mass/volume)Ordered By: Shavonne Blanchard on 05-31-2022 Hemoglobin (Bld) [Mass/Vol] 7.5 g/dL 12.0-15.0 [facility] Blood lymphocytes/100 leukoc ytesOrdered By: Shavonne Blanchard on 05-31-2022 Lymphocytes/100 WBC (Bld) 11 % 19-41 [facility] Blood monocytes/100 leukocyt esOrdered By: Shavonne Blanchard on 05-31-2022 Monocytes/100 WBC (Bld) 6 % 0-10 [facility] Blood platelet adequacy dete ction by light microscopyOrdered By: Shavonne Blanchard on 05-31-2022 Platelets LM Ql (Bld) ADEQUATE ADEQ [facility] Blood platelet mean volumeOr dered By: Shavonne Blanchard on 05-31-2022 Platelet mean volume (Bld) [Entitic vol] 9.4 fL 6.2-12.0 [facility] Blood segmented neutrophils/ 100 leukocytesOrdered By: Shavonne Blanchard on 05-31-2022 Segmented neutrophils/100 WBC (Bld) 83 % 47-70 [facility] Blood vacuolated neutrophils detection by light microscopyOrdered By: Shavonne Blanchard on 05-31-2022 Neutrophils.vacuolated LM Ql (Bld) ADEQUATE [facility] Determination of erythrocyte mean corpuscular volume (MCV)Ordered By: Shavonne Blanchard on 05-31-2022 MCV (RBC) [Entitic vol] 97.5 fL 81-99 [facility] Hematocrit Auto (Bld) [Volum e fraction]Ordered By: Shavonne Blanchard on 05-31-2022 Hematocrit (Bld) [Volume fraction] 23.6 % 37-47 [facility] Hypochromatic red blood cell detectionOrdered By: Shavonne Blanchard on 05-31-2022 Hypochromia Ql (Bld) 1+ [facility] Laboratory - Chemistry and C hemistry - challengeOrdered By: Shavonne Blanchard on 05-31-2022 CO2 [Moles/Vol] 24.0 mmol/L 21.0-32.0 [facility] Urea nitrogen/Creatinine [Mass ratio] 26.0 mg/mg 10-20 [facility] - Hematology and Cell countsOrdered By: Shavonne Blanchard on 05-31-2022 Anisocytosis Ql (Bld) 1+ [facility] MCH (RBC) [Entitic mass] 31.0 pg 27.0-32.0 [facility] MCHC Auto (RBC) [Mass/Vol]Or dered By: Shavonne Blanchard on 05-31-2022 MCHC (RBC) [Mass/Vol] 31.8 g/dL 32-36 [facility] Neutrophils.vacuolated LM Ql (Bld)Ordered By: Shavonne Blanchard on 05-31-2022 Toxic Vacuolation ADEQUATE [facility] No Panel InformationOrdered By: Shavonne Blanchard on 05-31-2022 Estimated Creatinine Clearance Calc 59.78 ml/min [facility] Estimated GFR (MDRD) Amer 82 mL/min >60 [facility] Comment on above: GFR Calc Estimated GFR (MDRD) Non-Af Amer 68 mL/min >60 [facility] Comment on above: Non- GFR Calc RDW Coefficient of Variation [facility] Comment on above: Test not performed RDW Standard Dev[facility] Comment on above: Test not performed Platelets bldOrdered By: Stephany Blanchard on 05-31-2022 Platelets (Bld) [#/Vol] 138 10*3/uL 150-450 [facility] Review by pathologistOrdered By: Shavonne Blanchard on 05-31-2022 Pathologist review Adams (Unsp spec) [Interp] Reviewed [facility] Comment on above: Previous reported re sult: Richa lawson Edited by: RGOOD on 05/31/22:1340Normocytic anemia.Mild Thrombocytopenia.Clinical correlation suggested.Abhijit Bennett D.O. 05/31/22 AMENDED REPORT 05/31/22 1340 PATH REV previously reported as: May foll Serum or plasma calcium nicole urement (mass/volume)Ordered By: Shavonne Blanchard on 05-31-2022 Calcium [Mass/Vol] 8.7 mg/dL 8.5-10.1 [facility] Serum or plasma creatinine m easurement (mass/volume)Ordered By: Shavonne Blanchard on 05-31-2022 Creatinine [Mass/Vol] 0.89 mg/dL 0.55-1.02 [facility] Comment on above: The validity of the calculated GFR & GFRAA in patients over 70 years has not been determined. Clinical correlation is essential. Serum or plasma urea nitroge n measurement (mass/volume)Ordered By: Shavonne Blanchard on 05-31-2022 Urea nitrogen [Mass/Vol] 23 mg/dL 7-18 [facility] Smudge cell detectionOrdered By: Shavonne Blanchard on 05-31-2022 Smudge cells LM Ql (Bld) ADEQUATE [facility] Smudge cells LM Ql (Bld)Orde red By: Shavonne Blanchard on 05-31-2022 Smudge Cells ADEQUATE [facility] Thin prep Papanicolaou smear with manual screeningOrdered By: Shavonne Santo on 05-31-2022 Thin prep Papanicolaou smear with manual screening 7 5-15 [facility] Total cell countOrdered By: Shavonne Blanchard on 05-31-2022 Cells counted Molgen (Bld/Tiss) [#] 100 MANUAL DIFF [facility] Basophil percentageOrdered B y: Dr. Munson on 05-24-2022 Basophils/100 WBC (Bld) 0.2 % 0-1 [facility] Bilirubin [Mass/Vol] 0.50 mg/dL 0.20-1.00 [facility] Comment on above: For patients on eltr ombopag therapy, use of Dimension [place] TBIL is not recommended. Eosinophils/100 WBC (Bld) 0.2 % 0-5 [facility] Protein [Mass/Vol] 7.1 g/dL 6.4-8.2 [facility] Blood lymphocytes/100 leukoc ytesOrdered By: Dr. Munson on 05-24-2022 Lymphocytes/100 WBC (Bld) 11.9 % 19-41 [facility] Blood manual differential co mment interpretation (narrative result)Ordered By: Dr. Munson on 05-24-2022 Manual differential comment Adams (Bld) [Interp] SCANNED [facility] Blood monocytes/100 leukocyt esOrdered By: Dr. Munson on 05-24-2022 Monocytes/100 WBC (Bld) 12.0 % 0-10 [facility] Blood polychromasia detectio n by light microscopyOrdered By: Dr. Munson on 05-24-2022 Polychromasia LM Ql (Bld) 1+ [facility] Folate [Mass/Vol]Ordered By: Shavonne Blanchard on 05-24-2022 Folate 19.00 ng/mL 3.1-55.4 [facility] Iron measurement (mass/mass) Ordered By: Shavonne Blanchard on 05-24-2022 Iron (Unsp spec) [Mass/Mass] 61 ug/dL 50-170 [facility] Laboratory - Chemistry and C hemistry - challengeOrdered By: Dr. Munson on 05-24-2022 ALP [Catalytic activity/Vol] 85 U/L 45-117 [facility] ALT [Catalytic activity/Vol] 18 U/L 13-56 [facility] Globulin (S) [Mass/Vol] 3.5 g/dL 2.2-4.2 [facility] Laboratory - Hematology and Cell countsOrdered By: Dr. Munson on 05-24-2022 Immature granulocytes/100 WBC (Bld) 1.100 % 0.0-0.9 [facility] Comment on above: IG% - Immature Granu locytes (promyelocytes, myelocytes and metamyelocytes) > 1% indicates that a LEFT SHIFT is Present. Nucleated RBC/100 WBC (Bld) [Ratio] 0 % 0-5 [facility] No Panel InformationOrdered By: Shavonne Blanchard on 05-24-2022 D-Dimer Quantitative (PE/DVT) 0.58 FEU/ug/m High 0.27-0.49 [facility] Comment on above: D-Dimer ELEVATED (>0 .49): Additional studies and clinicalassessments are indicated to conclude diagnosis of:Deep Vein Thrombosis (DVT) or Pulmonary Embolism (PE)CRITICAL VALUE VERIFIED. CALLED TO EBENEZER [facility]ANG [facility]05/24/22 1016 Zarina Ferris.RESULTS READ BACK BY SAME . Total Iron Binding Capacity 368 ug/dL 250-450 [facility] Vitamin B12 Level > 2000 pg/mL 211-911 [facility] Serum or plasma albumin nicole urement (mass/volume)Ordered By: Dr. Munson on 05-24-2022 Albumin [Mass/Vol] 3.6 g/dL 3.2-5.0 [facility] Serum or plasma albumin/glob ulin mass ratioOrdered By: Dr. Munson on 05-24-2022 Albumin/Globulin [Mass ratio] 1.0 {ratio} 0.9-2.4 [facility] Serum or plasma ferritin aline surement (mass/volume)Ordered By: Shavonne Blanchard on 05-24-2022 Ferritin [Mass/Vol] 127 ng/mL 8-252 [facility] Serum or plasma folate measu rement (mass/volume)Ordered By: Shavonne Blanchard on 05-24-2022 Folate [Mass/Vol] 19.00 ng/mL 3.1-55.4 [facility] Serum or plasma iron saturat ion measurement (mass fraction)Ordered By: Shavonne Blanchard on 05-24-2022 Iron saturation [Mass fraction] 16.6 % 15.0-55.0 [facility] Thin prep Papanicolaou smear with manual screeningOrdered By: Dr. Munson on 05-24-2022 Thin prep Papanicolaou smear with manual screening 2+ [facility] Thin prep Papanicolaou smear with manual screening 13 U/L 15-37 [facility] Basophil percentageOrdered B y: Dr. Munson on 05-16-2022 Basophil percentage 3.7 mg/dL 2.5-4.9 [facility] Laboratory - Chemistry and C hemistry - challengeOrdered By: Dr. Munson on 05-16-2022 Magnesium [Mass/Vol] 2.2 mg/dL 1.6-2.6 [facility] Absolute lymphocyte countOrd ered By: Dr. Munson on 05-03-2022 Lymphocytes Auto (Unsp spec) [#/Vol] 0.59 10*3/uL 0.83-4.51 [facility] Basophil percentageOrdered B y: Dr. Munson on 05-03-2022 Basophil percentage 4.1 mg/dL 2.5-4.9 [facility] Basophils/100 WBC (Bld) 0.7 % 0-1 [facility] Bilirubin [Mass/Vol] 0.60 mg/dL 0.20-1.00 [facility] Comment on above: For patients on eltr ombopag therapy, use of Dimension [place] TBIL is not recommended. Chloride [Moles/Vol] 106 mmol/L 98-107 [facility] Eosinophils/100 WBC (Bld) 0.4 % 0-5 [facility] Glucose [Mass/Vol] 111 mg/dL 74-106 [facility] Comment on above: Fasting Glucose resu lt from 100 to 125 mg/dL suggests IMPAIRED HOMEOSTASIS per A.D.A. criteria. Neutrophils (Bld) [#/Vol] 4.3 10*3/uL 2.0-7.7 [facility] Neutrophils/100 WBC (Bld) 76.7 % 47-70 [facility] Potassium [Moles/Vol] 4.1 mmol/L 3.5-5.1 [facility] Protein [Mass/Vol] 7.3 g/dL 6.4-8.2 [facility] Sodium [Moles/Vol] 136 mmol/L 136-145 [facility] WBC (Bld) [#/Vol] 5.7 10*3/uL 4.4-11.0 [facility] Blood erythrocytes count (nu mber/volume)Ordered By: Dr. Munson on 05-03-2022 RBC (Bld) [#/Vol] 3.23 10*6/uL 4.2-5.4 [facility] Blood hemoglobin measurement (mass/volume)Ordered By: Dr. Munson on 05-03-2022 Hemoglobin (Bld) [Mass/Vol] 9.7 g/dL 12.0-15.0 [facility] Blood lymphocytes/100 leukoc ytesOrdered By: Dr. Munson on 05-03-2022 Lymphocytes/100 WBC (Bld) 10.4 % 19-41 [facility] Blood manual differential co mment interpretation (narrative result)Ordered By: Dr. Munson on 05-03-2022 Manual differential comment Adams (Bld) [Interp] See comment [facility] Comment on above: LYMPHOPENIA Blood monocytes/100 leukocyt esOrdered By: Dr. Munson on 05-03-2022 Monocytes/100 WBC (Bld) 11.3 % 0-10 [facility] Blood platelet mean volumeOr dered By: Dr. Munson on 05-03-2022 Platelet mean volume (Bld) [Entitic vol] 8.3 fL 6.2-12.0 [facility] Determination of erythrocyte mean corpuscular volume (MCV)Ordered By: Dr. Munson on 05-03-2022 MCV (RBC) [Entitic vol] 89.8 fL 81-99 [facility] Hematocrit Auto (Bld) [Volum e fraction]Ordered By: Dr. Munson on 05-03-2022 Hematocrit (Bld) [Volume fraction] 29.0 % 37-47 [facility] Laboratory - Chemistry and C hemistry - challengeOrdered By: Dr. Munson on 05-03-2022 ALP [Catalytic activity/Vol] 68 U/L 45-117 [facility] ALT [Catalytic activity/Vol] 21 U/L 13-56 [facility] CO2 [Moles/Vol] 25.0 mmol/L 21.0-32.0 [facility] Globulin (S) [Mass/Vol] 3.7 g/dL 2.2-4.2 [facility] Magnesium [Mass/Vol] 2.1 mg/dL 1.6-2.6 [facility] Urea nitrogen/Creatinine [Mass ratio] 21.5 mg/mg 10-20 [facility] Laboratory - Hematology and Cell countsOrdered By: Dr. Munson on 05-03-2022 Anisocytosis Ql (Bld) 1+ [facility] Erythrocyte distribution width (RBC) [Entitic vol] 60.6 fL 35.1-43.9 [facility] Erythrocyte distribution width (RBC) [Ratio] 20.7 % 11.6-14.6 [facility] Immature granulocytes/100 WBC (Bld) 0.500 % 0.0-0.9 [facility] Comment on above: IG% - Immature Granu locytes (promyelocytes, myelocytes and metamyelocytes) > 1% indicates that a LEFT SHIFT is Present. MCH (RBC) [Entitic mass] 30.0 pg 27.0-32.0 [facility] Nucleated RBC/100 WBC (Bld) [Ratio] 0 % 0-5 [facility] MCHC Auto (RBC) [Mass/Vol]Or dered By: Dr. Munson on 05-03-2022 MCHC (RBC) [Mass/Vol] 33.4 g/dL 32-36 [facility] No Panel InformationOrdered By: Dr. Munson on 05-03-2022 Estimated Creatinine Clearance Calc 54.29 ml/min [facility] Estimated GFR (MDRD) Amer 74 mL/min >60 [facility] Comment on above: GFR Calc Estimated GFR (MDRD) Non-Af Amer 61 mL/min >60 [facility] Comment on above: Non- GFR Calc Platelets bldOrdered By: Dr. Munson on 05-03-2022 Platelets (Bld) [#/Vol] 244 10*3/uL 150-450 [facility] Serum or plasma albumin nicole urement (mass/volume)Ordered By: Dr. Munson on 05-03-2022 Albumin [Mass/Vol] 3.6 g/dL 3.2-5.0 [facility] Serum or plasma albumin/glob ulin mass ratioOrdered By: Dr. Munson on 05-03-2022 Albumin/Globulin [Mass ratio] 1.0 {ratio} 0.9-2.4 [facility] Serum or plasma calcium nicole urement (mass/volume)Ordered By: Dr. Munson on 05-03-2022 Calcium [Mass/Vol] 8.7 mg/dL 8.5-10.1 [facility] Serum or plasma creatinine m easurement (mass/volume)Ordered By: Dr. Munson on 05-03-2022 Creatinine [Mass/Vol] 0.98 mg/dL 0.55-1.02 [facility] Comment on above: The validity of the calculated GFR & GFRAA in patients over 70 years has not been determined. Clinical correlation is essential. Serum or plasma urea nitroge n measurement (mass/volume)Ordered By: Dr. Munson on 05-03-2022 Urea nitrogen [Mass/Vol] 21 mg/dL 7-18 [facility] Thin prep Papanicolaou smear with manual screeningOrdered By: Dr. Munson on 05-03-2022 Thin prep Papanicolaou smear with manual screening 17 U/L 15-37 [facility] Thin prep Papanicolaou smear with manual screening 5 5-15 [facility] No Panel InformationOrdered By: Shavonne Blanchard on 04-26-2022 Thyroid Stimulating Hormone (TSH) 1.47 uIU/mL 0.358-3.74 [facility] Review by pathologistOrdered By: Dr. Munson on 04-26-2022 Pathologist review Adams (Unsp spec) [Interp] Reviewed [facility] Comment on above: Previous reported re sult: Richa lawson Edited by: RGODELMIS on 04/28/22:0918Pancytopenia.Leukopenia Normocytic anemia.Mild ThrombocytopeniaClinical correlation necessary.Roldan Gordon M.D. 04/28/22 AMENDED REPORT 04/28/22 0918 PATH REV previously reported as: Richa lawson Blood platelet adequacy dete ction by light microscopyOrdered By: Dr. Munson on 04-19-2022 Platelets LM Ql (Bld) MKD DEC ADEQ [facility] Thin prep Papanicolaou smear with manual screeningOrdered By: Dr. Munson on 04-19-2022 Thin prep Papanicolaou smear with manual screening 2+ [facility] Absolute lymphocyte countOrd ered By: Dr. Barbour on 03-30-2022 Lymphocytes Auto (Unsp spec) [#/Vol] 5.30 10*3/uL 0.83-4.51 [facility] Basophil percentageOrdered B y: Dr. Barbour on 03-30-2022 Basophil percentage 0-5 SEEN /hpf 0-5 [facility] Basophil percentage Not Reportable [facility] Bilirubin [Mass/Vol] 0.50 mg/dL 0.20-1.00 [facility] Comment on above: For patients on eltr ombopag therapy, use of Dimension [place] TBIL is not recommended. Chloride [Moles/Vol] 104 mmol/L 98-107 [facility] Glucose [Mass/Vol] 163 mg/dL 74-106 [facility] Comment on above: Fasting Glucose resu lt greater than or equal to 126 mg/dL suggests DIABETES MELLITUS per A.D.A. criteria. Neutrophils (Bld) [#/Vol] 15.2 10*3/uL 2.0-7.7 [facility] Potassium [Moles/Vol] 4.4 mmol/L 3.5-5.1 [facility] Protein [Mass/Vol] 8.1 g/dL 6.4-8.2 [facility] Sodium [Moles/Vol] 137 mmol/L 136-145 [facility] WBC (Bld) [#/Vol] 22.1 10*3/uL 4.4-11.0 [facility] Bilirubin Test strip Ql (U)O rdered By: Dr. Barbour on 03-30-2022 Bilirubin Ql (U) Negative Negative [facility] Blood band neutrophil count as percentage of total leukocytesOrdered By: Dr. Barbour on 03-30-2022 Band form neutrophils/100 WBC (Bld) 6 % 0-5 [facility] Blood erythrocytes count (nu mber/volume)Ordered By: Dr. Barbour on 03-30-2022 RBC (Bld) [#/Vol] 4.69 10*6/uL 4.2-5.4 [facility] Blood hemoglobin measurement (mass/volume)Ordered By: Dr. Barbour on 03-30-2022 Hemoglobin (Bld) [Mass/Vol] 13.0 g/dL 12.0-15.0 [facility] Blood lymphocytes/100 leukoc ytesOrdered By: Dr. Barbour on 03-30-2022 Lymphocytes/100 WBC (Bld) 24 % 19-41 [facility] Blood metamyelocytes/100 graciela kocytesOrdered By: Dr. Barbour on 03-30-2022 Metamyelocytes/100 WBC (Bld) 1 % 0-1 [facility] Blood monocytes/100 leukocyt esOrdered By: Dr. Barbour on 03-30-2022 Monocytes/100 WBC (Bld) 5 % 0-10 [facility] Blood platelet adequacy dete ction by light microscopyOrdered By: Dr. Barbour on 03-30-2022 Platelets LM Ql (Bld) MKD DEC ADEQ [facility] Blood platelet mean volumeOr dered By: Dr. Barbour on 03-30-2022 Platelet mean volume (Bld) [Entitic vol] 9.8 fL 6.2-12.0 [facility] Blood segmented neutrophils/ [address] leukocytes[address]: [address] Barbour on 03-30-2022 Segmented neutrophils/100 WBC (Bld) 63 % 47-70 [facility] Determination of erythrocyte mean corpuscular volume (MCV)Ordered By: Dr. Barbour on 03-30-2022 MCV (RBC) [Entitic vol] 85.9 fL 81-99 [facility] Hematocrit Auto (Bld) [Volum e fraction]Ordered By: Dr. Barbour on 03-30-2022 Hematocrit (Bld) [Volume fraction] 40.3 % 37-47 [facility] Ketones Test strip Ql (U)Ord ered By: Dr. Barbour on 03-30-2022 Ketones Ql (U) Negative Negative [facility] Laboratory - Chemistry and C hemistry - challengeOrdered By: Dr. Barbour on 03-30-2022 ALP [Catalytic activity/Vol] 132 U/L 45-117 [facility] ALT [Catalytic activity/Vol] 26 U/L 13-56 [facility] CO2 [Moles/Vol] 25.0 mmol/L 21.0-32.0 [facility] Globulin (S) [Mass/Vol] 3.9 g/dL 2.2-4.2 [facility] Lipase [Catalytic activity/Vol] 93 U/L 73-393 [facility] Urea nitrogen/Creatinine [Mass ratio] 6.0 mg/mg 10-20 [facility] Laboratory - Hematology and Cell countsOrdered By: Dr. Barbour on 03-30-2022 Erythrocyte distribution width (RBC) [Entitic vol] 41.5 fL 35.1-43.9 [facility] Erythrocyte distribution width (RBC) [Ratio] 13.3 % 11.6-14.6 [facility] MCH (RBC) [Entitic mass] 27.7 pg 27.0-32.0 [facility] Myelocytes/100 WBC (Bld) 1 % 0-0 [facility] Auto (RBC) [Mass/Vol]Or dered By: Dr. Barbour on 03-30-2022 MCHC (RBC) [Mass/Vol] 32.3 g/dL 32-36 [facility] Mucus LM Ql (Urine sed)Order ed By: Dr. Barbour on 03-30-2022 Mucus Ql (Urine sed) 0 SEEN /hpf [facility] Nitrite Test strip Ql (U)Ord ered By: Dr. Barbour on 03-30-2022 Nitrite Ql (U) Positive Negative [facility] No Panel InformationOrdered By: Dr. Barbour on 03-30-2022 Estimated Creatinine Clearance Calc 35.47 ml/min [facility] Estimated GFR (MDRD) Amer 45 mL/min >60 [facility] Comment on above: GFR Calc Estimated GFR (MDRD) Non-Af Amer 37 mL/min >60 [facility] Comment on above: Non- GFR Calc Platelets bldOrdered By: Dr. Barbour on 03-30-2022 Platelets (Bld) [#/Vol] 59 10*3/uL 150-450 [facility] Protein Test strip Ql (U)Ord ered By: Dr. Barbour on 03-30-2022 Protein Ql (U) 30 mg/dl Negative [facility] RBC morphologyOrdered By: Dr Mavis Barbour on 03-30-2022 RBC morphology finding Nom (Bld) NORM C+C NORMAL NORM C&C [facility] Review by pathologiston 03-17 Pathologist review Adams (Unsp spec) [Interp] Richa lawson [facility] Work Phone: Review by pathologistOrdered By: Dr. Barbour on 03-30-2022 Pathologist review Adams (Unsp spec) [Interp] Reviewed [facility] Comment on above: Previous reported re sult: Richa lawson Edited by: RGOOD on 04/01/22:1431Leukocytosis with Neutrophilic left shift. Marked Thrombocytopenia.Clinical correlation necessary.Roldan Gordon M.D. 04/01/22 AMENDED REPORT 04/01/22 1431 PATH REV previously reported as: Richa lawson Serum or plasma albumin nicole urement (mass/volume)Ordered By: Dr. Barbour on 03-30-2022 Albumin [Mass/Vol] 4.2 g/dL 3.2-5.0 [facility] Serum or plasma albumin/glob ulin mass ratioOrdered By: Dr. Barbour on 03-30-2022 Albumin/Globulin [Mass ratio] 1.1 {ratio} 0.9-2.4 [facility] Serum or plasma calcium nicole urement (mass/volume)Ordered By: Dr. Barbour on 03-30-2022 Calcium [Mass/Vol] 9.7 mg/dL 8.5-10.1 [facility] Serum or plasma creatinine m easurement (mass/volume)Ordered By: Dr. Barbour on 03-30-2022 Creatinine [Mass/Vol] 1.50 mg/dL 0.55-1.02 [facility] Comment on above: The validity of the calculated GFR & GFRAA in patients over 70 years has not been determined. Clinical correlation is essential. Serum or plasma urea nitroge n measurement (mass/volume)Ordered By: Dr. Barbour on 03-30-2022 Urea nitrogen [Mass/Vol] 9 mg/dL 7-18 [facility] Squamous epithelial cells de tection in urine sediment by light microscopyOrdered By: Dr. Barbour on 03-30-2022 Epithelial cells.squamous LM Ql (Urine sed) 0-5 SEEN /hpf 5-10 [facility] Thin prep Papanicolaou smear with manual screeningOrdered By: Dr. Barbour on 03-30-2022 Thin prep Papanicolaou smear with manual screening 23 U/L 15-37 [facility] Thin prep Papanicolaou smear with manual screening 8 5-15 [facility] Total cell countOrdered By: Dr. Barbour on 03-30-2022 Cells counted Molgen (Bld/Tiss) [#] 100 MANUAL DIFF [facility] Urine blood detectionOrdered By: Dr. Barbour on 03-30-2022 RBC Ql (U) Negative Negative [facility] RBC Ql (U) 0 SEEN /hpf 0-5 [facility] Urine clarityOrdered By: Dr. Barbour on 03-30-2022 Clarity (U) Clear Clear [facility] Urine color determinationOrd ered By: Dr. Barbour on 03-30-2022 Color (U) Straw Yellow [facility] Urine glucose detectionOrder ed By: Dr. Barbour on 03-30-2022 Glucose Ql (U) Normal mg/dl Normal [facility] Urine leukocyte esterase det ection by dipstickOrdered By: Dr. Barbour on 03-30-2022 Leukocyte esterase Test strip Ql (U) 500 /ul Negative [facility] Urine pHOrdered By: Dr. Maddie fatima on 03-30-2022 pH (U) 8.0 [pH] 5.0 - 8.0 [facility] Urine sediment bacteria coun t by microscopy (number/high power field)Ordered By: Dr. Barbour on 03-30-2022 Bacteria LM.HPF (Urine sed) [#/Area] RARE /hpf None Seen [facility] Urine specific gravity measu rementOrdered By: Dr. Barbour on 03-30-2022 Specific gravity (U) [Rel density] 1.010 1.002-1.030 [facility] Urobilinogen Auto test strip Ql (U)Ordered By: Dr. Barbour on 03-30-2022 Urobilinogen Ql (U) Normal mg/dl Normal [facility] Absolute lymphocyte counton 03-29-2022 Lymphocytes Auto (Unsp spec) [#/Vol] 3.03 10*3/uL 0.83-4.51 [facility] Work Phone: Basophil percentageon [address] Not Reportable [facility] Work Phone: Bilirubin [Mass/Vol] 0.30 mg/dL 0.20-1.00 [facility] Work Phone: Comment on above: For patients on eltr ombopag therapy, use of Dimension [place] TBIL is not recommended. Chloride [Moles/Vol] 105 mmol/L 98-107 [facility] Work Phone: Glucose [Mass/Vol] 110 mg/dL 74-106 [facility] Work Phone: Comment on above: Fasting Glucose resu lt from 100 to 125 mg/dL suggests IMPAIRED HOMEOSTASIS per A.D.A. criteria. Neutrophils (Bld) [#/Vol] 13.3 10*3/uL 2.0-7.7 [facility] Work Phone: Potassium [Moles/Vol] 4.1 mmol/L 3.5-5.1 [facility] Work Phone: Protein [Mass/Vol] 7.4 g/dL 6.4-8.2 [facility] Work Phone: Sodium [Moles/Vol] 137 mmol/L 136-145 [facility] Work Phone: WBC (Bld) [#/Vol] 20.2 10*3/uL 4.4-11.0 [facility] Work Phone: Blood band neutrophil count as percentage of total leukocytesOrdered By: Dr. Munson on 03-29-2022 Band form neutrophils/100 WBC (Bld) 7 % 0-5 [facility] Blood eosinophils/100 leukoc ytesOrdered By: Dr. Munson on 03-29-2022 Eosinophils/100 WBC (Bld) 1 % 0-5 [facility] Blood erythrocytes count (nu mber/volume)on 03-29-2022 RBC (Bld) [#/Vol] 4.12 10*6/uL 4.2-5.4 [facility] Work Phone: Blood hemoglobin measurement (mass/volume)on 03-29-2022 Hemoglobin (Bld) [Mass/Vol] 11.4 g/dL 12.0-15.0 [facility] Work Phone: Blood lymphocytes/100 leukoc ytesOrdered By: Dr. Munson on 03-29-2022 Lymphocytes/100 WBC (Bld) 15 % 19-41 [facility] Blood metamyelocytes/100 graciela kocytesOrdered By: Dr. Munson on 03-29-2022 Metamyelocytes/100 WBC (Bld) 5 % High 0-1 [facility] Blood monocytes/100 leukocyt esOrdered By: Dr. Munson on 03-29-2022 Monocytes/100 WBC (Bld) 7 % 0-10 [facility] Blood platelet adequacy dete ction by light microscopyon 03-29-2022 Platelets LM Ql (Bld) MKD DEC ADEQ [facility] Work Phone: Blood platelet mean volumeon 03-29-2022 Platelet mean volume (Bld) [Entitic vol] 9.3 fL 6.2-12.0 [facility] Work Phone: Blood segmented neutrophils/ [address]: [address] Munson on 03-29-2022 Segmented neutrophils/100 WBC (Bld) 59 % 47-70 [facility] Determination of erythrocyte mean corpuscular volume (MCV)on 03-29-2022 MCV (RBC) [Entitic vol] 86.2 fL 81-99 [facility] Work Phone: Hematocrit Auto (Bld) [Volum e fraction]on 03-29-2022 Hematocrit (Bld) [Volume fraction] 35.5 % 37-47 [facility] Work Phone: Laboratory - Chemistry and C hemistry - challengeon 03-29-2022 ALP [Catalytic activity/Vol] 124 U/L 45-117 [facility] Work Phone: ALT [Catalytic activity/Vol] 25 U/L 13-56 [facility] Work Phone: CO2 [Moles/Vol] 26.0 mmol/L 21.0-32.0 [facility] Work Phone: Globulin (S) [Mass/Vol] 3.6 g/dL 2.2-4.2 [facility] Work Phone: Urea nitrogen/Creatinine [Mass ratio] 10.3 mg/mg 10-20 [facility] Work Phone: [phone] Laboratory - Hematology and Cell countson 03-29-2022 Erythrocyte distribution width (RBC) [Entitic vol] 41.9 fL 35.1-43.9 [facility] Work Phone: Erythrocyte distribution width (RBC) [Ratio] 13.3 % 11.6-14.6 [facility] Work Phone: MCH (RBC) [Entitic mass] 27.7 pg 27.0-32.0 [facility] Work Phone: Laboratory - Hematology and Cell countsOrdered By: Dr. Munson on 03-29-2022 Myelocytes/100 WBC (Bld) 6 % 0-0 [facility] MCHC Auto (RBC) [Mass/Vol]on 03-29-2022 MCHC (RBC) [Mass/Vol] 32.1 g/dL 32-36 [facility] Work Phone: No Panel Informationon 03-29 Estimated Creatinine Clearance Calc 45.87 ml/min [facility] Work Phone: Estimated GFR (MDRD) Amer 60 mL/min >60 [facility] Work Phone: Comment on above: GFR Calc Estimated GFR (MDRD) Non-Af Amer 50 mL/min >60 [facility] Work Phone: Comment on above: Non- GFR Calc Platelets bldon 03-29-2022 Platelets (Bld) [#/Vol] 41 10*3/uL 150-450 [facility] Work Phone: RBC morphologyOrdered By: Dr Mavis Munson on 03-29-2022 RBC morphology finding Nom (Bld) NORM C+C NORMAL NORM C&C [facility] RBC morphology finding Nom ( Bld)Ordered By: Chadwick Munson on 03-29-2022 Red Blood Cell Morphology NORM C+C NORMAL NORM C&C [facility] Review by pathologiston 03-17 Pathologist review Adams (Unsp spec) [Interp] Reviewed [facility] Work Phone: Comment on above: Previous reported re sult: Richa lawson Edited by: RGODELMIS on 03/30/22:1535Leukocytosis with Neutrophilic left shift. Marked Thrombocytopenia.Clinical correlation necessary.Roldan Gordon M.D. 03/30/22 AMENDED REPORT 03/30/22 1535 PATH REV previously reported as: May foll Serum or plasma albumin nicole urement (mass/volume)on 03-29-2022 Albumin [Mass/Vol] 3.8 g/dL 3.2-5.0 [facility] Work Phone: Serum or plasma albumin/glob ulin mass ratioon 03-29-2022 Albumin/Globulin [Mass ratio] 1.1 {ratio} 0.9-2.4 [facility] Work Phone: Serum or plasma calcium nicole urement (mass/volume)on 03-29-2022 Calcium [Mass/Vol] 9.2 mg/dL 8.5-10.1 [facility] Work Phone: Serum or plasma creatinine m easurement (mass/volume)on 03-29-2022 Creatinine [Mass/Vol] 1.16 mg/dL 0.55-1.02 [facility] Work Phone: Comment on above: The validity of the calculated GFR & GFRAA in patients over 70 years has not been determined. Clinical correlation is essential. Serum or plasma urea nitroge n measurement (mass/volume)on 03-29-2022 Urea nitrogen [Mass/Vol] 12 mg/dL 7-18 [facility] Work Phone: Thin prep Papanicolaou smear with manual screeningon 03-29-2022 Thin prep Papanicolaou smear with manual screening 24 U/L 15-37 [facility] Work Phone: Thin prep Papanicolaou smear with manual screening 6 5-15 [facility] Work Phone: Total cell countOrdered By: Dr. Munson on 03-29-2022 Cells counted Molgen (Bld/Tiss) [#] 100 MANUAL DIFF [facility] Basophil percentageon 2021 Basophils/100 WBC (Bld) 0.4 % 0-1 [facility] Work Phone: Eosinophils/100 WBC (Bld) 0.8 % 0-5 [facility] Work Phone: Blood lymphocytes/100 leukoc yteson 03-15-2022 Lymphocytes/100 WBC (Bld) 31.7 % 19-41 [facility] Work Phone: Blood monocytes/100 leukocyt eson 03-15-2022 Monocytes/100 WBC (Bld) 7.0 % 0-10 [facility] Work Phone: Laboratory - Hematology and Cell countson 03-15-2022 Immature granulocytes/100 WBC (Bld) 0.400 % 0.0-0.9 [facility] Work Phone: Comment on above: IG% - Immature Granu locytes (promyelocytes, myelocytes and metamyelocytes) > 1% indicates that a LEFT SHIFT is Present. Nucleated RBC/100 WBC (Bld) [Ratio] 0 % 0-5 [facility] Work Phone: Absolute lymphocyte counton 02-28-2022 Lymphocytes Auto (Unsp spec) [#/Vol] 2.97 10*3/uL 0.83-4.51 [facility] Work Phone: Basophil percentageon 2021 Basophil percentage 3.7 mg/dL 2.5-4.9 [facility] Work Phone: Basophils/100 WBC (Bld) 0.6 % 0-1 [facility] Work Phone: Bilirubin [Mass/Vol] 0.60 mg/dL 0.20-1.00 [facility] Work Phone: Comment on above: For patients on eltr ombopag therapy, use of Dimension [place] TBIL is not recommended. Chloride [Moles/Vol] 105 mmol/L 98-107 [facility] Work Phone: Eosinophils/100 WBC (Bld) 1.4 % 0-5 [facility] Work Phone: Glucose [Mass/Vol] 125 mg/dL 74-106 [facility] Work Phone: Comment on above: Fasting Glucose resu lt from 100 to 125 mg/dL suggests IMPAIRED HOMEOSTASIS per A.D.A. criteria. Neutrophils (Bld) [#/Vol] 4.5 10*3/uL 2.0-7.7 [facility] Work Phone: Neutrophils/100 WBC (Bld) 53.3 % 47-70 [facility] Work Phone: Potassium [Moles/Vol] 4.4 mmol/L 3.5-5.1 [facility] Work Phone: [phone] Protein [Mass/Vol] 7.1 g/dL 6.4-8.2 [facility] Work Phone: Sodium [Moles/Vol] 141 mmol/L 136-145 [facility] Work Phone: WBC (Bld) [#/Vol] 8.4 10*3/uL 4.4-11.0 [facility] Work Phone: Blood erythrocytes count (nu mber/volume)on 02-28-2022 RBC (Bld) [#/Vol] 4.60 10*6/uL 4.2-5.4 [facility] [facility] Work Phone: Blood hemoglobin measurement (mass/volume)on 02-28-2022 Hemoglobin (Bld) [Mass/Vol] 12.9 g/dL 12.0-15.0 [facility] Work Phone: Blood lymphocytes/100 leukoc yteson 02-28-2022 Lymphocytes/100 WBC (Bld) 35.5 % 19-41 [facility] Work Phone: Blood monocytes/100 leukocyt eson 02-28-2022 Monocytes/100 WBC (Bld) 9.0 % 0-10 [facility] Work Phone: Blood platelet mean volumeon 02-28-2022 Platelet mean volume (Bld) [Entitic vol] 8.1 fL 6.2-12.0 [facility] Work Phone: Determination of erythrocyte mean corpuscular volume (MCV)on 02-28-2022 MCV (RBC) [Entitic vol] 88.3 fL 81-99 [facility] Work Phone: Hematocrit Auto (Bld) [Volum e fraction]on 02-28-2022 Hematocrit (Bld) [Volume fraction] 40.6 % 37-47 [facility] Work Phone: Laboratory - Chemistry and C hemistry - challengeon 02-28-2022 ALP [Catalytic activity/Vol] 88 U/L 45-117 [facility] Work Phone: ALT [Catalytic activity/Vol] 29 U/L 13-56 [facility] Work Phone: CO2 [Moles/Vol] 28.0 mmol/L 21.0-32.0 [facility] Work Phone: Globulin (S) [Mass/Vol] 3.5 g/dL 2.2-4.2 [facility] Work Phone: Magnesium [Mass/Vol] 2.5 mg/dL 1.6-2.6 [facility] Work Phone: [phone] Urea nitrogen/Creatinine [Mass ratio] 10.4 mg/mg 10-20 [facility] Work Phone: Laboratory - Hematology and Cell countson 02-28-2022 Erythrocyte distribution width (RBC) [Entitic vol] 42.8 fL 35.1-43.9 [facility] Work Phone: Erythrocyte distribution width (RBC) [Ratio] 13.2 % 11.6-14.6 [facility] Work Phone: Immature granulocytes/100 WBC (Bld) 0.200 % 0.0-0.9 [facility] Work Phone: Comment on above: IG% - Immature Granu locytes (promyelocytes, myelocytes and metamyelocytes) > 1% indicates that a LEFT SHIFT is Present. MCH (RBC) [Entitic mass] 28.0 pg 27.0-32.0 [facility] Work Phone: Nucleated RBC/100 WBC (Bld) [Ratio] 0 % 0-5 [facility] Work Phone: MCHC Auto (RBC) [Mass/Vol]on 02-28-2022 MCHC (RBC) [Mass/Vol] 31.8 g/dL 32-36 [facility] Work Phone: No Panel Informationon 02-28 Estimated GFR (MDRD) Amer 51 mL/min >60 [facility] Work Phone: Comment on above: GFR Calc Estimated GFR (MDRD) Non-Af Amer 42 mL/min >60 [facility] Work Phone: Comment on above: Non- GFR Calc Platelets bldon 02-28-2022 Platelets (Bld) [#/Vol] 275 10*3/uL 150-450 [facility] Work Phone: Serum or plasma albumin nicole urement (mass/volume)on 02-28-2022 Albumin [Mass/Vol] 3.6 g/dL 3.2-5.0 [facility] Work Phone: Serum or plasma albumin/glob ulin mass ratioon 02-28-2022 Albumin/Globulin [Mass ratio] 1.0 {ratio} 0.9-2.4 [facility] Work Phone: Serum or plasma calcium nicole urement (mass/volume)on 02-28-2022 Calcium [Mass/Vol] 8.9 mg/dL 8.5-10.1 [facility] Work Phone: Serum or plasma creatinine m easurement (mass/volume)on 02-28-2022 Creatinine [Mass/Vol] 1.35 mg/dL 0.55-1.02 [facility] Work Phone: Comment on above: The validity of the calculated GFR & GFRAA in patients over 70 years has not been determined. Clinical correlation is essential. Serum or plasma urea nitroge n measurement (mass/volume)on 02-28-2022 Urea nitrogen [Mass/Vol] 14 mg/dL 7-18 [facility] Work Phone: Thin prep Papanicolaou smear with manual screeningon 02-28-2022 Thin prep Papanicolaou smear with manual screening 16 U/L 15-37 [facility] Work Phone: Thin prep Papanicolaou smear with manual screening 8 5-15 [facility] Work Phone: Basophil percentageOrdered B y: Dr. Jones on 02-07-2022 WBC (Bld) [#/Vol] 7.3 10*3/uL 4.4-11.0 [facility] Blood erythrocytes count (nu mber/volume)Ordered By: Dr. Jones on 02-07-2022 RBC (Bld) [#/Vol] 4.56 10*6/uL 4.2-5.4 [facility] Blood hemoglobin measurement (mass/volume)Ordered By: Dr. Jones on 02-07-2022 Hemoglobin (Bld) [Mass/Vol] 13.4 g/dL 12.0-15.0 [facility] Blood platelet mean volumeOr dered By: Dr. Jones on 02-07-2022 Platelet mean volume (Bld) [Entitic vol] 9.1 fL 6.2-12.0 [facility] Determination of erythrocyte mean corpuscular volume (MCV)Ordered By: Dr. Jones on 02-07-2022 MCV (RBC) [Entitic vol] 88.6 fL 81-99 [facility] Hematocrit Auto (Bld) [Volum e fraction]Ordered By: Dr. Jones on 02-07-2022 Hematocrit (Bld) [Volume fraction] 40.4 % 37-47 [facility] INR in Blood by Coagulation assayOrdered By: Dr. Jones on 02-07-2022 INR Coag (Bld) [Relative time] 1.0 {INR} [facility] Laboratory - CoagulationOrde red By: Dr. Jones on 02-07-2022 aPTT Coag (Bld) [Time] 27.9 s 24.1-36.2 [facility] PT Coag (PPP) [Time] 12.9 s 11.7-14.9 [facility] Laboratory - Hematology and Cell countsOrdered By: Dr. Jones on 02-07-2022 Erythrocyte distribution width (RBC) [Entitic vol] 43.1 fL 35.1-43.9 [facility] Erythrocyte distribution width (RBC) [Ratio] 13.3 % 11.6-14.6 [facility] MCH (RBC) [Entitic mass] 29.4 pg 27.0-32.0 [facility] MCHC Auto (RBC) [Mass/Vol]Or dered By: Dr. Jones on 02-07-2022 MCHC (RBC) [Mass/Vol] 33.2 g/dL 32-36 [facility] Platelets bldOrdered By: Dr. Jones on 02-07-2022 Platelets (Bld) [#/Vol] 282 10*3/uL 150-450 [facility] Absolute lymphocyte countOrd ered By: Dr. Barbour on 01-30-2022 Lymphocytes Auto (Unsp spec) [#/Vol] 3.04 10*3/uL 0.83-4.51 [facility] Basophil percentageOrdered B y: Dr. Barbour on 01-30-2022 Basophils/100 WBC (Bld) 0.7 % 0-1 [facility] Eosinophils/100 WBC (Bld) 2.4 % 0-5 [facility] Neutrophils (Bld) [#/Vol] 3.2 10*3/uL 2.0-7.7 [facility] Neutrophils/100 WBC (Bld) 44.7 % 47-70 [facility] WBC (Bld) [#/Vol] 7.1 10*3/uL 4.4-11.0 [facility] Bilirubin [Mass/Vol] 0.50 mg/dL 0.20-1.00 [facility] Comment on above: For patients on eltr ombopag therapy, use of Dimension [place] TBIL is not recommended. Chloride [Moles/Vol] 104 mmol/L 98-107 [facility] Glucose [Mass/Vol] 93 mg/dL 74-106 [facility] Potassium [Moles/Vol] 4.2 mmol/L 3.5-5.1 [facility] Protein [Mass/Vol] 7.1 g/dL 6.4-8.2 [facility] Sodium [Moles/Vol] 137 mmol/L 136-145 [facility] Blood erythrocytes count (nu mber/volume)Ordered By: Dr. Barbour on 01-30-2022 RBC (Bld) [#/Vol] 4.39 10*6/uL 4.2-5.4 [facility] Blood hemoglobin measurement (mass/volume)Ordered By: Dr. Barbour on 01-30-2022 Hemoglobin (Bld) [Mass/Vol] 13.3 g/dL 12.0-15.0 [facility] Blood lymphocytes/100 leukoc ytesOrdered By: Dr. Barbour on 01-30-2022 Lymphocytes/100 WBC (Bld) 42.9 % 19-41 [facility] Blood monocytes/100 leukocyt esOrdered By: Dr. Barbour on 01-30-2022 Monocytes/100 WBC (Bld) 9.2 % 0-10 [facility] Blood platelet mean volumeOr dered By: Dr. Barbour on 01-30-2022 Platelet mean volume (Bld) [Entitic vol] 8.5 fL 6.2-12.0 [facility] Determination of erythrocyte mean corpuscular volume (MCV)Ordered By: Dr. Barbour on 01-30-2022 MCV (RBC) [Entitic vol] 87.9 fL 81-99 [facility] Hematocrit Auto (Bld) [Volum e fraction]Ordered By: Dr. Barbour on 01-30-2022 Hematocrit (Bld) [Volume fraction] 38.6 % 37-47 [facility] Laboratory - Chemistry and C hemistry - challengeOrdered By: Dr. Barbour on 01-30-2022 ALP [Catalytic activity/Vol] 69 U/L 45-117 [facility] ALT [Catalytic activity/Vol] 19 U/L 13-56 [facility] CO2 [Moles/Vol] 27.0 mmol/L 21.0-32.0 [facility] Globulin (S) [Mass/Vol] 3.5 g/dL 2.2-4.2 [facility] Lipase [Catalytic activity/Vol] 139 U/L 73-393 [facility] Urea nitrogen/Creatinine [Mass ratio] 19.6 mg/mg 10-20 [facility] Laboratory - Hematology and Cell countsOrdered By: Dr. Barbour on 01-30-2022 Erythrocyte distribution width (RBC) [Entitic vol] 42.8 fL 35.1-43.9 [facility] Erythrocyte distribution width (RBC) [Ratio] 13.2 % 11.6-14.6 [facility] Immature granulocytes/100 WBC (Bld) 0.100 % 0.0-0.9 [facility] Comment on above: IG% - Immature Granu locytes (promyelocytes, myelocytes and metamyelocytes) > 1% indicates that a LEFT SHIFT is Present. MCH (RBC) [Entitic mass] 30.3 pg 27.0-32.0 [facility] Nucleated RBC/100 WBC (Bld) [Ratio] 0 % 0-5 [facility] MCHC Auto (RBC) [Mass/Vol]Or dered By: Dr. Barbour on 01-30-2022 MCHC (RBC) [Mass/Vol] 34.5 g/dL 32-36 [facility] No Panel InformationOrdered By: Dr. Barbour on 01-30-2022 Estimated Creatinine Clearance Calc 49.72 ml/min [facility] Estimated GFR (MDRD) Amer 66 mL/min >60 [facility] Comment on above: GFR Calc Estimated GFR (MDRD) Non-Af Amer 55 mL/min >60 [facility] Comment on above: Non- GFR Calc Troponin I High Sensitivity 5 pg/mL 3.0-54.0 [facility] Comment on above: Please Note: New Cher t Units and Gender Specific Reference Ranges. For more information see Policy Stat Procedure [place] High Sensitivity Troponin (TNIH) and attachments. Platelets bldOrdered By: Dr. Barbour on 01-30-2022 Platelets (Bld) [#/Vol] 278 10*3/uL 150-450 [facility] Serum or plasma albumin nicole urement (mass/volume)Ordered By: Dr. Barbour on 01-30-2022 Albumin [Mass/Vol] 3.6 g/dL 3.2-5.0 [facility] Serum or plasma albumin/glob ulin mass ratioOrdered By: Dr. Barbour on 01-30-2022 Albumin/Globulin [Mass ratio] 1.0 {ratio} 0.9-2.4 [facility] Serum or plasma calcium nicole urement (mass/volume)Ordered By: Dr. Barbour on 01-30-2022 Calcium [Mass/Vol] 8.9 mg/dL 8.5-10.1 [facility] Serum or plasma creatinine m easurement (mass/volume)Ordered By: Dr. Barbour on 10-16-2022 Creatinine [Mass/Vol] 1.07 mg/dL 0.55-1.02 [facility] Comment on above: The validity of the calculated GFR & GFRAA in patients over 70 years has not been determined. Clinical correlation is essential. Serum or plasma urea nitroge n measurement (mass/volume)Ordered By: Dr. Barbour on 01-30-2022 Urea nitrogen [Mass/Vol] 21 mg/dL 7-18 [facility] Thin prep Papanicolaou smear with manual screeningOrdered By: Dr. Barbour on 01-30-2022 Thin prep Papanicolaou smear with manual screening 14 U/L 15-37 [facility] Thin prep Papanicolaou smear with manual screening 6 5-15 [facility] Vital Signs Date Time Vital Sign Value Performing Clinician Facility 09-30-2024 15:10-0400 Body height 165.1 cm Lynda Alonso MD Work Phone: [facility] 09-30-2024 15:08-0400 Body mass index (BMI) [Ratio] 23.1 kg/m2 Lynda Alonso MD Work Phone: [facility] 09-30-2024 15:08-0400 Body temperature 97.9 [degF] Lynda Alonso MD Work Phone: [facility] 09-30-2024 15:08-0400 Body weight 63.04 kg Lynda Alonso MD Work Phone: [facility] 09-30-2024 15:08-0400 Diastolic blood pressure 78 mm[Hg] Lynda Alonso MD Work Phone: [facility] 09-30-2024 15:08-0400 Heart rate 80 /min Lynda Alonso MD Work Phone: [facility] 09-30-2024 15:08-0400 Respiratory rate 16 /min Lynda Alonso MD Work Phone: [facility] 09-30-2024 15:08-0400 SaO2% (BldA) [Mass fraction] 100 % Lynda Alonso MD Work Phone: [facility] 09-30-2024 15:08-0400 Systolic blood pressure 116 mm[Hg] Lynda Alonso MD Work Phone: [facility] 09-27-2024 09:09-0400 Body height 165.1 cm Lynda Alonso MD Work Phone: [facility] 09-27-2024 09:09-0400 Body mass index (BMI) [Ratio] 23.3 kg/m2 Lynda Alonso MD Work Phone: [facility] 09-27-2024 09:09-0400 Body temperature 96 [degF] Lynda Alonso MD Work Phone: [facility] 09-27-2024 09:09-0400 Body weight 63.55 kg Lynda Alonso MD Work Phone: [facility] 09-27-2024 09:09-0400 Diastolic blood pressure 83 mm[Hg] Lynda Alonso MD Work Phone: [facility] 09-27-2024 09:09-0400 Heart rate 85 /min Lynda Alonso MD Work Phone: [facility] 09-27-2024 09:09-0400 Respiratory rate 18 /min Lynda Alonso MD Work Phone: [facility] 09-27-2024 09:09-0400 SaO2% (BldA) [Mass fraction] 100 % Lynda Alonso MD Work Phone: [facility] 09-27-2024 09:09-0400 Systolic blood pressure 163 mm[Hg] Lynda Alonso MD Work Phone: [facility] 09-24-2024 14:35-0400 Body height 165.1 cm Lynda Alonso MD Work Phone: [facility] 09-24-2024 14:35-0400 Body mass index (BMI) [Ratio] 23.5 kg/m2 Lynda Alonso MD Work Phone: [facility] 09-24-2024 14:35-0400 Body temperature 95.3 [degF] Lynda Alonso MD Work Phone: [facility] 09-24-2024 14:35-0400 Body weight 64.18 kg Lynda Alonso MD Work Phone: [facility] 09-24-2024 14:35-0400 Diastolic blood pressure 72 mm[Hg] Lynda Alonso MD Work Phone: [facility] 09-24-2024 14:35-0400 Heart rate 82 /min Lynda Alonso MD Work Phone: [facility] 09-24-2024 14:35-0400 Respiratory rate 16 /min Lynda Alonso MD Work Phone: [facility] 09-24-2024 14:35-0400 SaO2% (BldA) [Mass fraction] 98 % Lynda Alonso MD Work Phone: 3(083)[phone] [place] [address] 09-24-2024 14:35-0400 Systolic blood pressure 112 mm[Hg] Lynda Alonso MD Work Phone: [facility] 09-11-2024 13:43-0400 Body height 165.1 cm Lynda Alonso MD Work Phone: [facility] 09-11-2024 13:43-0400 Body mass index (BMI) [Ratio] 23.3 kg/m2 Lynda Alonso MD Work Phone: 3(170)[phone] [place] [address] 09-11-2024 13:43-0400 Body temperature 96.8 [degF] Lynda Alonso MD Work Phone: [facility] 09-11-2024 13:43-0400 Body weight 63.55 kg Lynda Alonso MD Work Phone: [facility] 09-11-2024 13:43-0400 Diastolic blood pressure 77 mm[Hg] Lynda Alonso MD Work Phone: [facility] 09-11-2024 13:43-0400 Heart rate 90 /min Lynda Alonso MD Work Phone: [facility] 09-11-2024 13:43-0400 Respiratory rate 16 /min Lynda Alonso MD Work Phone: [facility] 09-11-2024 13:43-0400 SaO2% (BldA) [Mass fraction] 99 % Lynda Alonso MD Work Phone: [facility] 09-11-2024 13:43-0400 Systolic blood pressure 128 mm[Hg] Lynda Alonso MD Work Phone: [facility] 09-03-2024 11:15-0400 Diastolic blood pressure 68 mm[Hg] Lynda Alonso MD Work Phone: [facility] 09-03-2024 11:15-0400 Heart rate 70 /min Lynda Alonso MD Work Phone: [facility] 09-03-2024 11:15-0400 Respiratory rate 14 /min Lynda Alonso MD Work Phone: [facility] 09-03-2024 11:15-0400 SaO2% (BldA) [Mass fraction] 100 % Lynda Alonso MD Work Phone: [facility] 09-03-2024 11:15-0400 Systolic blood pressure 118 mm[Hg] Lynda Alonso MD Work Phone: [facility] 09-03-2024 09:45-0400 Inhaled oxygen flow rate 2 L/min Lynda Alonso MD Work Phone: [facility] 09-03-2024 08:16-0400 Body mass index (BMI) [Ratio] 24.4 kg/m2 Lynda Alonso MD Work Phone: [facility] 09-03-2024 08:16-0400 Body weight 62.59 kg Lynda Alonso MD Work Phone: [facility] 08-29-2024 12:01-0400 Body height 165.1 cm Lynda Alonso MD Work Phone: [facility] 08-29-2024 12:01-0400 Body mass index (BMI) [Ratio] 22.9 kg/m2 Lynda Alonso MD Work Phone: [facility] 08-29-2024 12:01-0400 Body temperature 96.7 [degF] Lynda Alonso MD Work Phone: [facility] 08-29-2024 12:01-0400 Body weight 62.65 kg Lynda Alonso MD Work Phone: [facility] 08-29-2024 12:01-0400 Diastolic blood pressure 88 mm[Hg] Lynda Alonso MD Work Phone: [facility] 08-29-2024 12:01-0400 Heart rate 75 /min Lynda Alonso MD Work Phone: [facility] 08-29-2024 12:01-0400 Respiratory rate 18 /min Lynda Alonso MD Work Phone: 1(593)[phone] [place] [address] 08-29-2024 12:01-0400 SaO2% (BldA) [Mass fraction] 98 % Lynda Alonso MD Work Phone: [facility] 08-29-2024 12:01-0400 Systolic blood pressure 130 mm[Hg] Lynda Alonso MD Work Phone: [facility] 08-28-2024 07:46-0400 Body mass index (BMI) [Ratio] 22.9 kg/m2 Lynda Alonso MD Work Phone: [facility] 08-28-2024 07:46-0400 Body temperature 96.3 [degF] Lynda Alonso MD Work Phone: [facility] 08-28-2024 07:46-0400 Body weight 62.65 kg Lynda Alonso MD Work Phone: [facility] 08-28-2024 07:46-0400 Diastolic blood pressure 74 mm[Hg] Lynda Alonso MD Work Phone: [facility] 08-28-2024 07:46-0400 Heart rate 86 /min Lynda Alonso MD Work Phone: [facility] 08-28-2024 07:46-0400 Respiratory rate 16 /min Lynda Alonso MD Work Phone: [facility] 08-28-2024 07:46-0400 SaO2% (BldA) [Mass fraction] 98 % Lynda Alonso MD Work Phone: [facility] 08-28-2024 07:46-0400 Systolic blood pressure 167 mm[Hg] Lynda Alonso MD Work Phone: [facility] 06-24-2024 12:57-0400 Body height 165.1 cm Lynda Alonso MD Work Phone: [facility] 06-24-2024 12:57-0400 Body mass index (BMI) [Ratio] 21.3 kg/m2 Lynda Alonso MD Work Phone: [facility] 06-24-2024 12:57-0400 Body temperature 97.1 [degF] Lynda Alonso MD Work Phone: [facility] 06-24-2024 12:57-0400 Body weight 58.22 kg Lynda Alonso MD Work Phone: [facility] 06-24-2024 12:57-0400 Diastolic blood pressure 77 mm[Hg] Lynda Alonso MD Work Phone: [facility] 06-24-2024 12:57-0400 Heart rate 79 /min Lynda Alonso MD Work Phone: [facility] 06-24-2024 12:57-0400 Respiratory rate 18 /min Lynda Alonso MD Work Phone: [facility] 06-24-2024 12:57-0400 SaO2% (BldA) [Mass fraction] 98 % Lynda Alonso MD Work Phone: [facility] 06-24-2024 12:57-0400 Systolic blood pressure 133 mm[Hg] Lynda Alonso MD Work Phone: [facility] 06-24-2024 12:38-0400 Body weight 58.96 kg Lynda Alonso MD Work Phone: [facility] 06-24-2024 12:38-0400 Heart rate 87 /min Lynda Alonso MD Work Phone: [facility] 06-24-2024 12:38-0400 SaO2% (BldA) [Mass fraction] 98 % Lynda Alonso MD Work Phone: [facility] 06-19-2024 15:03-0500 Body mass index (BMI) [Ratio] 21.8 kg/m2 Lynda Alonso MD Work Phone: [facility] 06-19-2024 15:03-0500 Body temperature 97.7 [degF] Lynda Alonso MD Work Phone: [facility] 06-19-2024 15:03-0500 Body weight 59.42 kg Lynda Alonso MD Work Phone: [facility] 06-19-2024 15:03-0500 Diastolic blood pressure 69 mm[Hg] Lynda Alonso MD Work Phone: [facility] 06-19-2024 15:03-0500 Heart rate 80 /min Lynda Alonso MD Work Phone: [facility] 06-19-2024 15:03-0500 Respiratory rate 18 /min Lynda Alonso MD Work Phone: [facility] 06-19-2024 15:03-0500 SaO2% (BldA) [Mass fraction] 98 % Lynda Alonso MD Work Phone: [facility] 06-19-2024 15:03-0500 Systolic blood pressure 116 mm[Hg] Lynda Alonso MD Work Phone: [facility] 04-30-2024 10:12-0500 Body temperature 98.4 [degF] Lynda Alonso MD Work Phone: [facility] 04-30-2024 10:12-0500 Diastolic blood pressure 76 mm[Hg] Lynda Alonso MD Work Phone: [facility] 04-30-2024 10:12-0500 Heart rate 64 /min Lynda Alonso MD Work Phone: [facility] 04-30-2024 10:12-0500 Respiratory rate 18 /min Lynda Alonso MD Work Phone: [facility] 04-30-2024 10:12-0500 SaO2% (BldA) [Mass fraction] 99 % Lynda Alonso MD Work Phone: [facility] 04-30-2024 10:12-0500 Systolic blood pressure 165 mm[Hg] Lynda Alonso MD Work Phone: [facility] 04-30-2024 07:13-0500 Body mass index (BMI) [Ratio] 25.3 kg/m2 Lynda Alonso MD Work Phone: [facility] 04-30-2024 07:13-0500 Body weight 62.9 kg Lynda Alonso MD Work Phone: [facility] 04-29-2024 10:52-0500 Diastolic blood pressure 74 mm[Hg] Lynda Alonso MD Work Phone: [facility] 04-29-2024 10:52-0500 Heart rate 86 /min Lynda Alonso MD Work Phone: [facility] 04-29-2024 10:52-0500 Respiratory rate 16 /min Lynda Alonso MD Work Phone: [facility] 04-29-2024 10:52-0500 SaO2% (BldA) [Mass fraction] 100 % Lynda Alonso MD Work Phone: [facility] 04-29-2024 10:52-0500 Systolic blood pressure 133 mm[Hg] Lynda Alonso MD Work Phone: [facility] 04-29-2024 08:57-0500 Body mass index (BMI) [Ratio] 26.2 kg/m2 Lynda Alonso MD Work Phone: [facility] 04-29-2024 08:57-0500 Body temperature 98.8 [degF] Lynda Alonso MD Work Phone: [facility] 04-29-2024 08:57-0500 Body weight 64.6 kg Lynda Alonso MD Work Phone: 1(875)[phone] [place] [address] 04-28-2024 12:24-0500 Body mass index (BMI) [Ratio] 24.8 kg/m2 Lynda Alonso MD Work Phone: [facility] 04-28-2024 12:24-0500 Body temperature 98.5 [degF] Lynda Alonso MD Work Phone: 4(962)[phone] [place] [address] 04-28-2024 12:24-0500 Body weight 61.68 kg Lynda Alonso MD Work Phone: 9(835)[phone] [address] 04-28-2024 12:24-0500 Diastolic blood pressure 87 mm[Hg] Lynda Alonso MD Work Phone: 4(783)[phone] [address] 04-28-2024 12:24-0500 Heart rate 94 /min Lynda Alonso MD Work Phone: 4(879)375-617898 [place] [address] 04-28-2024 12:24-0500 Respiratory rate 18 /min Lynda Alonso MD Work Phone: 0(646)[phone] [place] [address] 04-28-2024 12:24-0500 SaO2% (BldA) [Mass fraction] 97 % Lynda Alonso MD Work Phone: 1(888)[phone] [place] [address] 04-28-2024 12:24-0500 Systolic blood pressure 135 mm[Hg] Lynda Alonso MD Work Phone: 0([phone])[phone] [place] [address] 04-18-2024 14:35-0500 Body mass index (BMI) [Ratio] 23.5 kg/m2 Lynda Alonso MD Work Phone: 7(143)398-495844 [place] [address] 04-18-2024 14:35-0500 Body weight 64.12 kg Lynda Alonso MD Work Phone: 9(146)488-919598 [place] [address] 03-11-2024 14:12-0500 Body mass index (BMI) [Ratio] 23.6 kg/m2 Lynda Alonso MD Work Phone: [facility] 03-11-2024 14:12-0500 Body temperature 97.5 [degF] Lynda Alonso MD Work Phone: [facility] 03-11-2024 14:12-0500 Body weight 64.52 kg Lynda Alonso MD Work Phone: [facility] 03-11-2024 14:12-0500 Diastolic blood pressure 82 mm[Hg] Lynda Alonso MD Work Phone: [facility] 03-11-2024 14:12-0500 Heart rate 81 /min Lynad Alonso MD Work Phone: [facility] 03-11-2024 14:12-0500 Respiratory rate 16 /min Lynda Alonso MD Work Phone: [facility] 03-11-2024 14:12-0500 SaO2% (BldA) [Mass fraction] 98 % Lynda Alonso MD Work Phone: [facility] 03-11-2024 14:12-0500 Systolic blood pressure 120 mm[Hg] Lynda Alonso MD Work Phone: [facility] 2023 08:36-0400 Body height 167.64 cm RUDY Bobo [employer] [facility] 2023 08:36-0400 Body mass index (BMI) [Ratio] 23.7 kg/m2 RUDY Bobo [employer] [facility] 2023 08:36-0400 Body temperature 97.6 [degF] RUDY Bobo [employer] [facility] 2023 08:36-0400 Body weight 66.76 kg RUDY Bobo [employer] [facility] 2023 08:36-0400 Diastolic blood pressure 82 mm[Hg] RUDY Bobo [employer] [facility] 2023 08:36-0400 Heart rate 89 /min ERNESTOC Lara Bobo [employer] [facility] 2023 08:36-0400 Respiratory rate 16 /min [employer] Lara Bobo [employer] [facility] 2023 08:36-0400 SaO2% (BldA) [Mass fraction] 97 % [employer] Lara Bobo [employer] [facility] 2023 08:36-0400 Systolic blood pressure 127 mm[Hg] [employer] Lara Bobo [employer] [facility] 06-16-2023 11:24-0500 Body height 167.64 cm DO Marce Gueor Work Phone: [facility] 06-16-2023 11:24-0500 Body mass index (BMI) [Ratio] 23.2 kg/m2 DO Marce Guero Work Phone: [facility] 06-16-2023 11:24-0500 Body temperature 98.2 [degF] DO Marce Guero Work Phone: [facility] 06-16-2023 11:24-0500 Body weight 65.31 kg DO Marce Guero Work Phone: [facility] 06-16-2023 11:24-0500 Diastolic blood pressure 96 mm[Hg] DO Marce Guero Work Phone: [facility] 06-16-2023 11:24-0500 Heart rate 88 /min DO Marce Guero Work Phone: [facility] 06-16-2023 11:24-0500 Respiratory rate 20 /min DO Marce Guero Work Phone: [facility] 06-16-2023 11:24-0500 SaO2% (BldA) [Mass fraction] 98 % DO Marce Guero Work Phone: [facility] 06-16-2023 11:24-0500 Systolic blood pressure 142 mm[Hg] DO Marce Guero Work Phone: [facility] 05-11-2023 09:04-0500 Body mass index (BMI) [Ratio] 23.6 kg/m2 DO Marce Guero Work Phone: [facility] 05-11-2023 09:04-0500 Body temperature 98.1 [degF] DO Marce Guero Work Phone: [facility] 05-11-2023 09:04-0500 Body weight 66.39 kg DO Marce Guero Work Phone: [facility] 05-11-2023 09:04-0500 Diastolic blood pressure 71 mm[Hg] DO Marce Guero Work Phone: [facility] 05-11-2023 09:04-0500 Heart rate 90 /min DO Marce Guero Work Phone: [facility] 05-11-2023 09:04-0500 Respiratory rate 8 /min DO Marce Guero Work Phone: [facility] 05-11-2023 09:04-0500 SaO2% (BldA) [Mass fraction] 100 % DO Marce Guero Work Phone: [facility] 05-11-2023 09:04-0500 Systolic blood pressure 112 mm[Hg] DO Marce Guero Work Phone: [facility] 04-14-2023 08:56-0500 Body temperature 96.6 [degF] DO Marce Guero Work Phone: [facility] 04-14-2023 08:56-0500 Diastolic blood pressure 81 mm[Hg] DO Marce Guero Work Phone: [facility] 04-14-2023 08:56-0500 Heart rate 95 /min DO Marce Guero Work Phone: [facility] 04-14-2023 08:56-0500 Respiratory rate 17 /min DO Marce Guero Work Phone: [facility] 04-14-2023 08:56-0500 SaO2% (BldA) [Mass fraction] 95 % DO Marce Guero Work Phone: [facility] 04-14-2023 08:56-0500 Systolic blood pressure 132 mm[Hg] DO Marce Guero Work Phone: [facility] 03-24-2023 08:38-0500 Body height 167.64 cm BORE MILL OPERATOR-Cristina Bobo [facility] M[facility] 03-24-2023 08:38-0500 Body mass index (BMI) [Ratio] 23.6 kg/m2 BORE MILL OPERATOR-Cristina Bobo B[facility] MILL [facility] 03-24-2023 08:38-0500 Body temperature 97.4 [degF] RUBY-Cristina Bobo [facility] 03-24-2023 08:38-0500 Body weight 66.45 kg RUBY-Cristina Bobo [facility] 03-24-2023 08:38-0500 Diastolic blood pressure 76 mm[Hg] RUBY-Cristina Bobo B[facility] MILL OPER[facility] 03-24-2023 08:38-0500 Heart rate 75 /min BORE MILL OPERATOR-Cristina Bobo [facility] M[facility] 03-24-2023 08:38-0500 Respiratory rate 16 /min BORE MILL OPERATOR-Cristina Bobo [facility] 03-24-2023 08:38-0500 SaO2% (BldA) [Mass fraction] 98 % RUBY-Cristina Bobo [facility] 03-24-2023 08:38-0500 Systolic blood pressure 123 mm[Hg] RUBY-Cristina Bobo B[facility] MILL OPER[facility] 02-15-2023 06:01-0400 Body height 167.64 cm RUBY-Cristina Bobo B[facility] MILL OPER[facility] 02-15-2023 06:01-0400 Body mass index (BMI) [Ratio] 23.7 kg/m2 RUBY-Cristina Bobo B[facility] MILL OPER[facility] 02-15-2023 06:01-0400 Body temperature 97.4 [degF] RUBY-Cristina Bobo B[facility] MILL OPER[facility] 02-15-2023 06:01-0400 Body weight 66.67 kg BORE MILL OPERATOR-Cristina Bobo B[facility] M[facility]PER[facility] 02-15-2023 06:01-0400 Diastolic blood pressure 77 mm[Hg] BORE MILL OPERATOR-Cristina Bobo B[facility] M[facility]PER[facility] 02-15-2023 06:01-0400 Heart rate 82 /min BORE MILL OPERATOR-Cristina Bermudez Joaquínandrey B[facility] MILL OPER[facility] 02-15-2023 06:01-0400 Respiratory rate 16 /min BORE MILL OPERATOR-Cristina Bobo B[facility] M[facility]PER[facility] 02-15-2023 06:01-0400 SaO2% (BldA) [Mass fraction] 96 % BORE MILL OPERATOR-Cristina Bermudez Joaquínandrey B[facility] MILL OPER[facility] 02-15-2023 06:01-0400 Systolic blood pressure 123 mm[Hg] BORE MILL OPERATOR-C Lara Joaquínandrey B[facility] MILL OPER[facility] 02-09-2023 11:34-0400 Body mass index (BMI) [Ratio] 23.8 kg/m2 BORE MILL OPERATOR-Cristina Bermudez Jihan B[facility] M[facility] 02-09-2023 11:34-0400 Body temperature 97.3 [degF] BORE MILL OPERATOR-Cristina Lara Jihan B[facility] M[facility]PER[facility] 02-09-2023 11:34-0400 Body weight 66.79 kg BORE MILL OPERATOR-Cristina Bermudez Joaquínandrey B[facility] MILL OPER[facility] 02-09-2023 11:34-0400 Diastolic blood pressure 81 mm[Hg] BORE MILL OPERATOR-Cristina Bermudez Joaquínandrey B[facility] MILL OPERATOR [facility] 02-09-2023 11:34-0400 Heart rate 81 /min BORE MILL OPERATOR-Cristina Bobo B[facility] M[facility]PER[facility] 02-09-2023 11:34-0400 Respiratory rate 18 /min BORE MILL OPERATOR-Cristina Bermudez Jihan B[facility] MILL OPER[facility] 02-09-2023 11:34-0400 SaO2% (BldA) [Mass fraction] 99 % BORE MILL OPERATOR-Cristina Bermudez Joaquínandrey B[facility] MILL OPER[facility] 02-09-2023 11:34-0400 Systolic blood pressure 117 mm[Hg] BORE MILL OPERATOR-Cristina Lara Jihan B[facility] M[facility]PER[facility] 12-09-2022 10:07-0400 Body height 167.64 cm BORE MILL OPERATOR-Cristina Bermudez Jihan B[facility] MILL OPERATOR [facility] 12-09-2022 10:07-0400 Body mass index (BMI) [Ratio] 24.3 kg/m2 BORE MILL OPERATOR-Cristina Lara Bobo B[facility] M[facility]PER[facility] 12-09-2022 10:07-0400 Body temperature 97.5 [degF] BORE MILL OPERATOR-C Lara Jihan B[facility] MILL OPER[facility] 12-09-2022 10:07-0400 Body weight 68.18 kg BORE MILL OPERATOR-Cristina Bermudez Joaquínandrey B[facility] MILL OPERATOR [facility] 12-09-2022 10:07-0400 Diastolic blood pressure 86 mm[Hg] BORE MILL OPERATOR-Cristina Bermudez Joaquínandrey B[facility] MILL OPERATOR [facility] 12-09-2022 10:07-0400 Heart rate 82 /min BORE MILL OPERATOR-Cristina Lara Jihan B[employer] M[facility] OPER[facility] 12-09-2022 10:07-0400 Respiratory rate 16 /min BORE MILL OPERATOR-Cristina Bermudez Joaquínandrey B[facility] MILL OPERATOR [facility] 12-09-2022 10:07-0400 SaO2% (BldA) [Mass fraction] 100 % BORE MILL OPERATOR-Cristina Lara Jihan B[facility] M[facility]PER[facility] 12-09-2022 10:07-0400 Systolic blood pressure 132 mm[Hg] BORE MILL OPERATOR-Cristina Bermudez Jihan B[facility] MILL OPER[facility] 11-10-2022 11:11-0400 Body height 167.64 cm BORE MILL OPERATOR-Cristina Bermudez Jihan B[facility] MILL OPER[facility] 11-01-2022 11:03-0400 Body mass index (BMI) [Ratio] 24 kg/m2 BORE MILL OPERATOR-Cristina Bermudez Joaquínandrey B[facility] MILL OPER[facility] 11-01-2022 11:03-0400 Body temperature 98.2 [degF] BORE MILL OPERATOR-Cristina Bermudez Joaquínandrey B[facility] MILL OPERATOR [facility] 11-01-2022 11:03-0400 Body weight 67.69 kg BORE MILL OPERATOR-Cristina Bermudez Jihan B[employer] MILL OPERATOR [facility] 11-01-2022 11:03-0400 Diastolic blood pressure 80 mm[Hg] BORE MILL OPERATOR-Cristina Lara Jihan B[facility] MILL OPER[facility] 11-01-2022 11:03-0400 Diastolic blood pressure 68 mm[Hg] BORE MILL OPERATOR-Cristina Lara Joaquínandrey B[facility] MILL OPERATOR [facility] 11-01-2022 11:03-0400 Heart rate 107 /min BORE MILL OPERATOR-Cristina Lara Bobo B[facility] M[facility]PER[facility] 11-01-2022 11:03-0400 Respiratory rate 16 /min BORE MILL OPERATOR-Cristina Lara Joaquínandrey B[employer] MILL OPERATOR [facility] 11-01-2022 11:03-0400 SaO2% (BldA) [Mass fraction] 96 % BORE MILL OPERATOR-Cristina Lara Bobo B[facility] M[facility]PER[facility] 11-01-2022 11:03-0400 Systolic blood pressure 120 mm[Hg] BORE MILL OPERATOR-Cristina Lara Bobo B[facility] M[facility]PER[facility] 11-01-2022 11:03-0400 Systolic blood pressure 102 mm[Hg] BORE MILL OPERATOR-Cristina Lara Jihan B[facility] MILL OPER[facility] 10-28-2022 07:29-0400 Body mass index (BMI) [Ratio] 23.8 kg/m2 BORE MILL OPERATOR-Cristina aLra Bobo B[employer] MILL OPERATOR [facility] 10-28-2022 07:29-0400 Body temperature 97.2 [degF] BORE MILL OPERATOR-Cristina Lara Jihan B[facility] MILL OPER[facility] 10-28-2022 07:29-0400 Body weight 67.13 kg BORE MILL OPERATOR-C Lara Bobo B[facility] M[facility] OPERATOR [facility] 10-28-2022 07:29-0400 Heart rate 102 /min BORE MILL OPERATOR-C Lara Bobo B[facility] M[facility] 10-28-2022 07:29-0400 Respiratory rate 16 /min BORE MILL OPERATOR-C Lara Bobo B[facility] M[facility] 10-28-2022 07:29-0400 SaO2% (BldA) [Mass fraction] 100 % BORE MILL OPERATOR-Cristina Lara Bobo B[facility] M[facility]PER[facility] 09-27-2022 08:14-0400 Body mass index (BMI) [Ratio] 24.2 kg/m2 BORE MILL OPERATOR-Cristina Lara Bobo B[employer] M[facility] 09-27-2022 08:14-0400 Body temperature 97.6 [degF] BORE MILL OPERATOR-Cristina Lara Bobo B[facility] M[facility]PER[facility] 09-27-2022 08:14-0400 Body weight 68.03 kg BORE MILL OPERATOR-Cristina Lara Bobo B[employer] M[facility]PER[facility] 09-27-2022 08:14-0400 Diastolic blood pressure 93 mm[Hg] BORE MILL OPERATOR-Cristina Lara Bobo B[facility] M[facility] OPER[facility] 09-27-2022 08:14-0400 Heart rate 121 /min BORE MILL OPERATOR-C Lara Bobo B[employer] M[facility]PER[facility] 09-27-2022 08:14-0400 Respiratory rate 18 /min BORE MILL OPERATOR-C Lara Bobo [facility]PER[facility] 09-27-2022 08:14-0400 SaO2% (BldA) [Mass fraction] 97 % BORE MILL OPERATOR-Cristina Bobo B[employer] M[facility] OPER[facility] 09-27-2022 08:14-0400 Systolic blood pressure 149 mm[Hg] BORE MILL OPERATOR-C Lara Bobo B[facility] MILL OPER[facility] 09-09-2022 10:57-0400 Body height 167.64 cm BORE MILL OPERATOR-Cristina Bobo B[employer] MILL OPER[facility] 09-09-2022 10:49-0400 Body mass index (BMI) [Ratio] 25.4 kg/m2 BORE MILL OPERATOR-Cristina Bobo B[employer] M[facility] OPER[facility] 09-09-2022 10:49-0400 Body temperature 98 [degF] BORE MILL OPERATOR-Cristina Bermudez Joaquínandrey BORE MILL OPERATOR [facility] 09-09-2022 10:49-0400 Body weight 71.38 kg BORE MILL OPERATOR-Cristina Bermudez Joaquínandrey B[employer] MILL OPERATOR [facility] 09-09-2022 10:49-0400 Diastolic blood pressure 83 mm[Hg] BORE MILL OPERATOR-Cristina Bermudez Jihan B[employer] MILL OPERATOR [facility] 09-09-2022 10:49-0400 Heart rate 109 /min BORE MILL OPERATOR-Cristina Bermudez Joaquínandrey B[employer] MILL OPERATOR [facility] 09-09-2022 10:49-0400 Respiratory rate 18 /min BORE MILL OPERATOR-Cristina Lara Jihan B[employer] MILL OPER[facility] 09-09-2022 10:49-0400 SaO2% (BldA) [Mass fraction] 98 % BORE MILL OPERATOR-Cristina Bermudez Joaquínandrey BORE MILL OPERATOR [facility] 09-09-2022 10:49-0400 Systolic blood pressure 134 mm[Hg] BORE MILL OPERATOR-Cristina Bermudez Joaquínandrey B[employer] MILL OPERATOR [facility] 08-01-2022 11:05-0400 Body mass index (BMI) [Ratio] 24.7 kg/m2 BORE MILL OPERATOR-Cristina Bermudez Jihan B[employer] M[facility] OPER[facility] 08-01-2022 11:05-0400 Body temperature 97.5 [degF] BORE MILL OPERATOR-Cristina Bermudez Joaquínandrey B[employer] MILL OPERATOR [facility] 08-01-2022 11:05-0400 Body weight 69.39 kg BORE MILL OPERATOR-Cristina Bermudez Joaquínandrey B[employer] MILL OPERATOR [facility] 08-01-2022 11:05-0400 Diastolic blood pressure 89 mm[Hg] BORE MILL OPERATOR-Cristina Lara Jihan B[facility] M[facility]PER[facility] 08-01-2022 11:05-0400 Heart rate 111 /min BORE MILL OPERATOR-C Lara Jihan B[facility] M[facility]PER[facility] 08-01-2022 11:05-0400 Respiratory rate 16 /min BORE MILL OPERATOR-Cristina Lara Bobo B[employer] M[facility]PER[facility] 08-01-2022 11:05-0400 SaO2% (BldA) [Mass fraction] 100 % BORE MILL OPERATOR-C Lara Bobo B[facility] M[facility]PER[facility] 08-01-2022 11:05-0400 Systolic blood pressure 142 mm[Hg] BORE MILL OPERATOR-C Lara Bobo B[facility] M[facility]PER[facility] 06-30-2022 09:11-0400 Body mass index (BMI) [Ratio] 24.7 kg/m2 BORE MILL OPERATOR-C Lara Bobo B[facility] M[facility]PER[facility] 06-30-2022 09:11-0400 Body temperature 97.2 [degF] BORE MILL OPERATOR-C Lara Bobo B[facility] M[facility] OPER[facility] 06-30-2022 09:11-0400 Body weight 69.39 kg BORE MILL OPERATOR-C Lara Bobo B[facility] M[facility] OPER[facility] 06-30-2022 09:11-0400 Diastolic blood pressure 81 mm[Hg] BORE MILL OPERATOR-C Lara Bobo B[facility] M[facility] OPER[facility] 06-30-2022 09:11-0400 Heart rate 112 /min BORE MILL OPERATOR-Cristina Bobo B[facility] M[facility] OPER[facility] 06-30-2022 09:11-0400 Respiratory rate 18 /min BORE MILL OPERATOR-C Lara Bobo B[facility] M[facility]PER[facility] 06-30-2022 09:11-0400 SaO2% (BldA) [Mass fraction] 100 % BORE MILL OPERATOR-Cristina Bobo B[facility] M[facility] OPER[facility] 06-30-2022 09:11-0400 Systolic blood pressure 123 mm[Hg] BORE MILL OPERATOR-Cristina Bobo B[facility] M[facility]PER[facility] 06-30-2022 07:48-0400 Body mass index (BMI) [Ratio] 24.7 kg/m2 BORE MILL OPERATOR-Cristina Bobo [facility]PER[facility] 06-30-2022 07:48-0400 Body temperature 97.5 [degF] BORE MILL OPERATOR-C Lara Bobo B[facility] M[facility]PER[facility] 06-30-2022 07:48-0400 Body weight 69.39 kg BORE MILL OPERATOR-Cristina Bobo B[facility] M[facility] OPER[facility] 06-30-2022 07:48-0400 Diastolic blood pressure 83 mm[Hg] BORE MILL OPERATOR-Cristina Bobo B[facility] M[facility]PER[facility] 06-30-2022 07:48-0400 Heart rate 117 /min BORE MILL OPERATOR-Cristina Bobo B[facility]PER[facility] 06-30-2022 07:48-0400 Respiratory rate 18 /min BORE MILL OPERATOR-C Lara Bobo B[facility]PER[facility] 06-30-2022 07:48-0400 SaO2% (BldA) [Mass fraction] 99 % BORE MILL OPERATOR-C Lara Bobo B[facility] M[facility]PER[facility] 06-30-2022 07:48-0400 Systolic blood pressure 136 mm[Hg] BORE MILL OPERATOR-C Lara Bobo B[facility] M[facility] OPER[facility] 06-15-2022 08:05-0500 Body mass index (BMI) [Ratio] 25 kg/m2 BORE MILL OPERATOR-C Lara Bobo [facility] 06-15-2022 08:05-0500 Body temperature 97 [degF] BORE MILL OPERATOR-C Lara Bobo B[facility] M[facility]PER[facility] 06-15-2022 08:05-0500 Body weight 70.5 kg BORE MILL OPERATOR-C Lara Bobo B[facility] M[facility]PER[facility] 06-15-2022 08:05-0500 Diastolic blood pressure 80 mm[Hg] BORE MILL OPERATOR-C Lara Bobo B[facility] M[facility]PER[facility] 06-15-2022 08:05-0500 Heart rate 120 /min BORE MILL OPERATOR-C Lara Bobo B[facility]PER[facility] 06-15-2022 08:05-0500 Respiratory rate 16 /min BORE MILL OPERATOR-C Lara Bobo B[facility] M[facility]PER[facility] 06-15-2022 08:05-0500 SaO2% (BldA) [Mass fraction] 100 % BORE MILL OPERATOR-C Lara Bobo B[facility] M[facility] OPER[facility] 06-15-2022 08:05-0500 Systolic blood pressure 136 mm[Hg] BORE MILL OPERATOR-C Lara Bobo B[facility] M[facility] OPER[facility] 06-08-2022 10:49-0500 Body temperature 97.6 [degF] BORE MILL OPERATOR-C Lara Bobo B[facility] M[facility] OPER[facility] 06-08-2022 10:49-0500 Diastolic blood pressure 74 mm[Hg] BORE MILL OPERATOR-C Lara Bobo B[facility] M[facility]PER[facility] 06-08-2022 10:49-0500 Heart rate 107 /min BORE MILL OPERATOR-C Lara Bobo B[facility] M[facility]PER[facility] 06-08-2022 10:49-0500 Respiratory rate 16 /min BORE MILL OPERATOR-C Lara Bobo B[facility] M[facility]PER[facility] 06-08-2022 10:49-0500 Systolic blood pressure 118 mm[Hg] BORE MILL OPERATOR-C Lara Bobo B[facility] M[facility]PER[facility] 06-08-2022 09:49-0500 SaO2% (BldA) [Mass fraction] 100 % BORE MILL OPERATOR-Cristina Lara Bobo B[facility] M[facility] 06-08-2022 09:07-0500 Body mass index (BMI) [Ratio] 25.2 kg/m2 BORE MILL OPERATOR-Cristina Lara Bobo B[facility] 06-08-2022 09:07-0500 Body weight 70.76 kg BORE MILL OPERATOR-Cristina Bobo B[facility] M[facility]PER[facility] 06-07-2022 08:46-0500 Body mass index (BMI) [Ratio] 25.4 kg/m2 BORE MILL OPERATOR-Cristina Lara Bobo B[facility] 06-07-2022 08:46-0500 Body temperature 97.5 [degF] BORE MILL OPERATOR-Cristina Bobo [facility]PER[facility] 06-07-2022 08:46-0500 Body weight 71.69 kg BORE MILL OPERATOR-Cristina Bobo [facility]PER[facility] 06-07-2022 08:46-0500 Diastolic blood pressure 82 mm[Hg] BORE MILL OPERATOR-Cristina Bobo B[facility] M[facility]PER[facility] 06-07-2022 08:46-0500 Heart rate 122 /min BORE MILL OPERATOR-Cristina Lara Bobo [facility]PER[facility] 06-07-2022 08:46-0500 Respiratory rate 16 /min BORE MILL OPERATOR-Cristina Bobo B[facility] M[facility]PER[facility] 06-07-2022 08:46-0500 SaO2% (BldA) [Mass fraction] 100 % BORE MILL OPERATOR-Cristina Lara Bobo [facility] 06-07-2022 08:46-0500 Systolic blood pressure 145 mm[Hg] RUBY-Cristina Bobo B[facility] MILL OPERATOR [facility] 05-31-2022 10:28-0500 Body height 167.64 cm BORE MILL OPERATOR-Cristina Bobo B[facility] M[facility] OPERATOR [facility] 05-31-2022 10:28-0500 Body mass index (BMI) [Ratio] 25.2 kg/m2 BORE MILL OPERATOR-Cristina Bobo B[facility] M[facility] OPER[facility] 05-31-2022 10:28-0500 Body weight 70.81 kg BORE MILL OPERATOR-Cristina Bobo B[facility] M[facility] OPER[facility] 05-31-2022 10:28-0500 Heart rate 115 /min BORE MILL OPERATOR-Cristina Bobo B[facility]PER[facility] 05-31-2022 08:55-0500 Body mass index (BMI) [Ratio] 25.2 kg/m2 BORE MILL OPERATOR-Cristina Lara Bobo B[facility] M[facility]PER[facility] 05-31-2022 08:55-0500 Body temperature 97.9 [degF] BORE MILL OPERATOR-C Lara Bobo B[facility] M[facility]PER[facility] 05-31-2022 08:55-0500 Body weight 70.81 kg BORE MILL OPERATOR-Cristina Bobo B[facility]PER[facility] 05-31-2022 08:55-0500 Diastolic blood pressure 79 mm[Hg] BORE MILL OPERATOR-C Lara Bobo B[facility] M[facility]PER[facility] 05-31-2022 08:55-0500 Heart rate 118 /min BORE MILL OPERATOR-C Lara Bobo [facility] 05-31-2022 08:55-0500 Respiratory rate 16 /min BORE MILL OPERATOR-C Lara Bobo [facility] 05-31-2022 08:55-0500 SaO2% (BldA) [Mass fraction] 100 % BORE MILL OPERATOR-Cristina Bobo [facility]PER[facility] 05-31-2022 08:55-0500 Systolic blood pressure 119 mm[Hg] BORE MILL OPERATOR-Cristina Lara Bobo [facility] 05-26-2022 12:07-0500 Body temperature 98.4 [degF] BORE MILL OPERATOR-Cristina Lara Bobo B[facility]PER[facility] 05-26-2022 12:07-0500 Diastolic blood pressure 67 mm[Hg] BORE MILL OPERATOR-Cristina Lara Bobo B[facility]PER[facility] 05-26-2022 12:07-0500 Heart rate 121 /min BORE MILL OPERATOR-Cristina Bobo B[facility] 05-26-2022 12:07-0500 Respiratory rate 16 /min BORE MILL OPERATOR-Cristina Lara Bobo B[facility]PER[facility] 05-26-2022 12:07-0500 Systolic blood pressure 107 mm[Hg] BORE MILL OPERATOR-Cristina Bobo B[facility] M[facility]PER[facility] 05-25-2022 12:13-0500 SaO2% (BldA) [Mass fraction] 100 % BORE MILL OPERATOR-C Lara Bobo B[facility] M[facility]PER[facility] 05-24-2022 09:19-0500 Body mass index (BMI) [Ratio] 24.9 kg/m2 BORE MILL OPERATOR-Cristina Bobo B[facility] M[facility]PER[facility] 05-24-2022 09:19-0500 Body weight 70.02 kg BORE MILL OPERATOR-Cristina Bobo B[facility] M[facility]PER[facility] 05-24-2022 08:24-0500 Body mass index (BMI) [Ratio] 24.9 kg/m2 BORE MILL OPERATOR-Cristina Bermudez Jihan B[facility] M[facility] OPER[facility] 05-24-2022 08:24-0500 Body temperature 97 [degF] BORE MILL OPERATOR-Cristina Bermudez Jihan B[facility] M[facility] OPER[facility] 05-24-2022 08:24-0500 Body weight 70.02 kg BORE MILL OPERATOR-Cristina Lara Jihan B[facility] M[facility]PER[facility] 05-24-2022 08:24-0500 Diastolic blood pressure 83 mm[Hg] BORE MILL OPERATOR-Cristina Lara Jihan B[facility] M[facility]PER[facility] 05-24-2022 08:24-0500 Heart rate 119 /min BORE MILL OPERATOR-Cristina Lara Bobo B[facility] M[facility] 05-24-2022 08:24-0500 Respiratory rate 18 /min BORE MILL OPERATOR-C Lara Jihan B[facility] M[facility]PER[facility] 05-24-2022 08:24-0500 SaO2% (BldA) [Mass fraction] 100 % BORE MILL OPERATOR-Cristina Lara Bobo B[facility]PER[facility] 05-24-2022 08:24-0500 Systolic blood pressure 145 mm[Hg] BORE MILL OPERATOR-Cristina Lara Jihan B[facility] M[facility] OPER[facility] 05-16-2022 11:37-0500 Body mass index (BMI) [Ratio] 24.8 kg/m2 BORE MILL OPERATOR-Cristina Bermudez Joaquínandrey B[facility] MILL OPERATOR [facility] 05-16-2022 11:37-0500 Body temperature 98.1 [degF] BORE MILL OPERATOR-Cristina Lara Jihan B[facility] M[facility] OPER[facility] 05-16-2022 11:37-0500 Body weight 69.85 kg BORE MILL OPERATOR-Cristina Lara Jihan B[facility] M[facility] OPER[facility] 05-16-2022 11:37-0500 Diastolic blood pressure 84 mm[Hg] BORE MILL OPERATOR-Cristina Lara Jihan B[facility] M[facility]PER[facility] 05-16-2022 11:37-0500 Heart rate 122 /min BORE MILL OPERATOR-C Lara Jihan B[facility] M[facility]PER[facility] 05-16-2022 11:37-0500 Respiratory rate 16 /min BORE MILL OPERATOR-C Lara Jihan B[facility] M[facility]PER[facility] 05-16-2022 11:37-0500 SaO2% (BldA) [Mass fraction] 100 % BORE MILL OPERATOR-Cristina Lara Bobo B[facility] 05-16-2022 11:37-0500 Systolic blood pressure 141 mm[Hg] BORE MILL OPERATORDeepikaCristina Bobo B[facility] MILL OPERATOR [facility] 05-10-2022 09:30-0500 Body mass index (BMI) [Ratio] 24.3 kg/m2 BORE MILL OPERATORLisa Lara Bobo B[facility] M[facility]PERATOR [facility] 05-10-2022 09:30-0500 Body temperature 97 [degF] BORE MILL OPERATORDeepikaCristina Bobo B[facility] M[facility] OPERATOR [facility] 05-10-2022 09:30-0500 Body weight 68.2 kg BORE MILL OPERATOR-Cristina Lara Bobo B[facility] M[facility]PER[facility] 05-10-2022 09:30-0500 Diastolic blood pressure 77 mm[Hg] BORE MILL OPERATOR-Cristina Bobo B[facility] M[facility]PER[facility] 05-10-2022 09:30-0500 Heart rate 119 /min BORE MILL OPERATOR-Cristina Bobo B[facility] M[facility] 05-10-2022 09:30-0500 Respiratory rate 16 /min BORE MILL OPERATORDeepikaCristina Bobo B[facility] M[facility] OPERATOR [facility] 05-10-2022 09:30-0500 SaO2% (BldA) [Mass fraction] 100 % BORE MILL OPERATORDeepikaCristina Bobo B[facility] M[facility] OPER[facility] 05-10-2022 09:30-0500 Systolic blood pressure 146 mm[Hg] RUBYDeepikaCristina Bobo B[facility] MILL OPERATOR [facility] 05-03-2022 09:49-0500 Body height 167.64 cm RUBYDeepikaCristina Bobo B[facility] MILL OPERATOR [facility] 05-03-2022 09:49-0500 Body mass index (BMI) [Ratio] 24.7 kg/m2 RUBYDeepikaCristina Bobo B[facility] MILL OPERATOR [facility] 05-03-2022 09:49-0500 Body weight 69.45 kg RUBYDeepikaCristina Bobo B[facility] MILL OPERATOR [facility] 05-03-2022 09:04-0500 Body mass index (BMI) [Ratio] 24.7 kg/m2 RUBYDeepikaCristina Bobo B[facility] MILL OPERATOR [facility] 05-03-2022 09:04-0500 Body temperature 97.4 [degF] RUBYDeepikaCristina Bobo B[facility] MILL OPERATOR [facility] 05-03-2022 09:04-0500 Body weight 69.45 kg RUBY-Cristina Bobo B[facility] M[facility] OPER[facility] 05-03-2022 09:04-0500 Diastolic blood pressure 76 mm[Hg] BORE MILL OPERATOR-Cristina Bobo B[facility] M[facility]PER[facility] 05-03-2022 09:04-0500 Heart rate 111 /min BORE MILL OPERATOR-Cristina Bobo B[facility] 05-03-2022 09:04-0500 Respiratory rate 16 /min BORE MILL OPERATOR-Cristina Bobo B[facility] 05-03-2022 09:04-0500 SaO2% (BldA) [Mass fraction] 100 % BORE MILL OPERATOR-Cristina Bobo B[facility] M[facility]PER[facility] 05-03-2022 09:04-0500 Systolic blood pressure 127 mm[Hg] BORE MILL OPERATOR-Cristina Bermudez Joaquínandrey B[facility] MILL OPERATOR [facility] 04-26-2022 09:49-0500 Body mass index (BMI) [Ratio] 25.2 kg/m2 BORE MILL OPERATOR-Cristina Bermudez Joaquínandrey B[facility] MILL OPERATOR [facility] 04-26-2022 09:49-0500 Body temperature 97.4 [degF] BORE MILL OPERATOR-Cristina Lara Jihan B[facility] M[facility] OPER[facility] 04-26-2022 09:49-0500 Body weight 70.81 kg BORE MILL OPERATOR-Cristina Bobo B[facility] M[facility]PER[facility] 04-26-2022 09:49-0500 Diastolic blood pressure 82 mm[Hg] BORE MILL OPERATOR-Cristina Bermudez Joaquínandrey BORE M[facility] OPER[facility] 04-26-2022 09:49-0500 Heart rate 117 /min BORE MILL OPERATOR-Cristina Bobo B[facility] M[facility]PER[facility] 04-26-2022 09:49-0500 Respiratory rate 16 /min BORE MILL OPERATOR-Cristina Lara Jihan B[facility] M[facility]PER[facility] 04-26-2022 09:49-0500 SaO2% (BldA) [Mass fraction] 99 % BORE MILL OPERATOR-Cristina Bobo [facility]PER[facility] 04-26-2022 09:49-0500 Systolic blood pressure 121 mm[Hg] BORE MILL OPERATOR-Cristina Lara Joaquínandrey BORE M[facility] OPER[facility] 04-26-2022 09:07-0500 Body mass index (BMI) [Ratio] 25.2 kg/m2 BORE MILL OPERATOR-Cristina Bermudez Joaquínandrey BORE M[facility] OPER[facility] 04-26-2022 09:07-0500 Body temperature 97.4 [degF] BORE MILL OPERATOR-Cristina Lara Bobo BORE M[facility]PER[facility] 04-26-2022 09:07-0500 Body weight 70.81 kg BORE MILL OPERATOR-Cristina Bermudez Joaquínandrey BORE M[facility] OPER[facility] 04-26-2022 09:07-0500 Diastolic blood pressure 82 mm[Hg] BORE MILL OPERATOR-Cristina Bermudez Jihan BORE M[facility] OPER[facility] 04-26-2022 09:07-0500 Heart rate 117 /min BORE MILL OPERATOR-Cristina Bobo B[facility] M[facility]PER[facility] 04-26-2022 09:07-0500 Respiratory rate 16 /min BORE MILL OPERATOR-Cristina Bermudez Joaquínandrey BORE M[facility] OPER[facility] 04-26-2022 09:07-0500 SaO2% (BldA) [Mass fraction] 99 % BORE MILL OPERATOR-Cristina Bermudez Jihan BORE M[facility] OPER[facility] 04-26-2022 09:07-0500 Systolic blood pressure 121 mm[Hg] BORE MILL OPERATOR-Cristina Lara Bobo [facility] 04-21-2022 14:46-0500 Body mass index (BMI) [Ratio] 24.9 kg/m2 BORE MILL OPERATOR-Cristina Lara Bobo [facility] 04-21-2022 14:46-0500 Body temperature 97 [degF] BORE MILL OPERATOR-Cristina Lara Jihan [facility] 04-21-2022 14:46-0500 Body weight 70.08 kg BORE MILL OPERATOR-Cristina Lara Jihan [facility] 04-21-2022 14:46-0500 Diastolic blood pressure 83 mm[Hg] BORE MILL OPERATOR-Cristina Lara Jihan [facility] 04-21-2022 14:46-0500 Heart rate 115 /min BORE MILL OPERATOR-Cristina Lara Jihan [facility] 04-21-2022 14:46-0500 Respiratory rate 16 /min BORE MILL OPERATOR-Cristina Lara Jihan [facility] 04-21-2022 14:46-0500 SaO2% (BldA) [Mass fraction] 100 % BORE MILL OPERATOR-Cristina Lara Jihan [facility] 04-21-2022 14:46-0500 Systolic blood pressure 133 mm[Hg] BORE MILL OPERATOR-Cristina Lara Jihan [facility] 04-19-2022 09:16-0500 Body mass index (BMI) [Ratio] 25.3 kg/m2 BORE MILL OPERATOR-Cristina Lara Bobo [facility] 04-19-2022 09:16-0500 Body temperature 97.4 [degF] BORE MILL OPERATOR-Cristina Lara Bobo [facility] 04-19-2022 09:16-0500 Body weight 71.27 kg BORE MILL OPERATOR-Cristina Bobo [facility] 04-19-2022 09:16-0500 Diastolic blood pressure 81 mm[Hg] BORE MILL OPERATOR-Cristina Bobo [facility] 04-19-2022 09:16-0500 Heart rate 119 /min BORE MILL OPERATOR-Cristina Bobo [facility] 04-19-2022 09:16-0500 Respiratory rate 16 /min BORE MILL OPERATOR-Cristina Bobo [facility] 04-19-2022 09:16-0500 SaO2% (BldA) [Mass fraction] 100 % BORE MILL OPERATOR-Cristina Bermudez Joaquínandrey [facility]PER[facility] 04-19-2022 09:16-0500 Systolic blood pressure 129 mm[Hg] BORE MILL OPERATOR-Cristina Bobo [facility] 04-19-2022 08:43-0500 Body mass index (BMI) [Ratio] 25.3 kg/m2 BORE MILL OPERATOR-Cristina Bermudez Joaquínandrey [facility] 04-19-2022 08:43-0500 Body temperature 97.4 [degF] BORE MILL OPERATOR-Cristina Bobo [facility] 04-19-2022 08:43-0500 Body weight 71.27 kg BORE MILL OPERATOR-Cristina Bobo [facility] 04-19-2022 08:43-0500 Diastolic blood pressure 81 mm[Hg] BORE MILL OPERATORLisa Bobo B[facility] M[facility] OPERATOR [facility] 04-19-2022 08:43-0500 Heart rate 117 /min BORE MILL OPERATOR-Cristina Bobo [facility] 04-19-2022 08:43-0500 Respiratory rate 16 /min BORE MILL OPERATOR-Cristina Bobo [facility] 04-19-2022 08:43-0500 SaO2% (BldA) [Mass fraction] 100 % BORE MILL OPERATOR-Cristina Bermudez Joaquínandrey [facility]PER[facility] 04-19-2022 08:43-0500 Systolic blood pressure 129 mm[Hg] BORE MILL OPERATOR-Cristina Bobo [facility] 04-14-2022 08:36-0500 Body mass index (BMI) [Ratio] 25.3 kg/m2 BORE MILL OPERATOR-Cristina Bermudez Joaquínandrey [facility] 04-14-2022 08:36-0500 Body temperature 97.5 [degF] BORE MILL OPERATOR-Cristina Bermudez Jihan [facility] 04-14-2022 08:36-0500 Body weight 71.21 kg BORE MILL OPERATOR-Cristina Bermudez Jihan [facility] 04-14-2022 08:36-0500 Diastolic blood pressure 91 mm[Hg] BORE MILL OPERATOR-Cristina Bermudez Jihan [facility] 04-14-2022 08:36-0500 Heart rate 111 /min BORE MILL OPERATOR-C Lara Jihan [facility] 04-14-2022 08:36-0500 Respiratory rate 16 /min BORE MILL OPERATOR-C Lara Jihan [facility] 04-14-2022 08:36-0500 SaO2% (BldA) [Mass fraction] 100 % BORE MILL OPERATOR-C Lara Jihan [facility] 04-14-2022 08:36-0500 Systolic blood pressure 137 mm[Hg] BORE MILL OPERATOR-Cristina Lara Bobo [facility] 04-13-2022 16:25-0500 Heart rate 100 /min BORE MILL OPERATOR-C Lara Jihan [facility] 04-13-2022 15:20-0500 Body mass index (BMI) [Ratio] 25.5 kg/m2 BORE MILL OPERATOR-Cristina Lara Bobo [facility] 04-13-2022 15:20-0500 Body temperature 97 [degF] BORE MILL OPERATOR-C Lara Jihan [facility] 04-13-2022 15:20-0500 Body weight 71.83 kg BORE MILL OPERATOR-Cristina Lara Bobo [facility] 04-13-2022 15:20-0500 Diastolic blood pressure 83 mm[Hg] BORE MILL OPERATOR-Cristina Lara Bobo [facility] 04-13-2022 15:20-0500 Respiratory rate 16 /min BORE MILL OPERATOR-Cristina Lara Jihan [facility] 04-13-2022 15:20-0500 SaO2% (BldA) [Mass fraction] 100 % BORE MILL OPERATOR-C Lara Bobo [facility] 04-13-2022 15:20-0500 Systolic blood pressure 143 mm[Hg] BORE MILL OPERATOR-C Lara Bobo [facility] 04-12-2022 14:16-0500 Body temperature 96.1 [degF] BORE MILL OPERATOR-C Lara Bobo [facility] 04-12-2022 14:16-0500 Diastolic blood pressure 82 mm[Hg] BORE MILL OPERATOR-C Lara Bobo [facility] 04-12-2022 14:16-0500 Heart rate 104 /min BORE MILL OPERATOR-C Lara Bobo [facility] 04-12-2022 14:16-0500 Respiratory rate 16 /min BORE MILL OPERATOR-C Lara Bobo [facility] 04-12-2022 14:16-0500 SaO2% (BldA) [Mass fraction] 100 % BORE MILL OPERATOR-C Lara Bobo [facility] 04-12-2022 14:16-0500 Systolic blood pressure 131 mm[Hg] BORE MILL OPERATOR-Cristina Bobo [facility] 04-07-2022 08:55-0500 Body mass index (BMI) [Ratio] 25.3 kg/m2 BORE MILL OPERATOR-Cristina Bobo [facility]PER[facility] 04-07-2022 08:55-0500 Body temperature 97.4 [degF] BORE MILL OPERATOR-C Lara Bobo [facility]PER[facility] 04-07-2022 08:55-0500 Body weight 71.27 kg BORE MILL OPERATOR-Cristina Bobo [facility]PER[facility] 04-07-2022 08:55-0500 Diastolic blood pressure 81 mm[Hg] BORE MILL OPERATOR-Cristina Lara Bobo [facility] 04-07-2022 08:55-0500 Heart rate 104 /min BORE MILL OPERATOR-C Lara Bobo [facility] 04-07-2022 08:55-0500 Respiratory rate 16 /min BORE MILL OPERATOR-Cristina Bobo [facility] 04-07-2022 08:55-0500 SaO2% (BldA) [Mass fraction] 100 % BORE MILL OPERATOR-Cristina Bobo [facility] 04-07-2022 08:55-0500 Systolic blood pressure 132 mm[Hg] BORE MILL OPERATOR-C Lara Bobo [facility] 04-06-2022 11:54-0500 Body temperature 97.1 [degF] BORE MILL OPERATOR-C Lara Bobo [facility] 04-06-2022 11:54-0500 Diastolic blood pressure 58 mm[Hg] BORE MILL OPERATOR-C Lara Bobo [facility]PER[facility] 04-06-2022 11:54-0500 Heart rate 108 /min BORE MILL OPERATOR-Cristina Bobo [facility]PER[facility] 04-06-2022 11:54-0500 Respiratory rate 16 /min BORE MILL OPERATOR-Cristina Bobo [facility] 04-06-2022 11:54-0500 SaO2% (BldA) [Mass fraction] 99 % BORE MILL OPERATOR-Cristina Bobo [facility] 04-06-2022 11:54-0500 Systolic blood pressure 108 mm[Hg] BORE MILL OPERATOR-Cristina Bermudez Joauqínandrey B[facility] M[facility] OPERATOR [facility] 04-05-2022 14:29-0500 Body mass index (BMI) [Ratio] 25.6 kg/m2 BORE MILL OPERATOR-Cristina Bermudez Jihan B[facility] M[facility]PERATOR [facility] 04-05-2022 14:29-0500 Body temperature 97.8 [degF] BORE MILL OPERATOR-Cristina Bermudez Joaquínandrey B[facility] M[facility]PERATOR [facility] 04-05-2022 14:29-0500 Body weight 71.92 kg BORE MILL OPERATOR-Cristina Lara Bobo [facility] 04-05-2022 14:29-0500 Diastolic blood pressure 74 mm[Hg] BORE MILL OPERATOR-Cristina Bermudez Joaquínandrey B[facility] M[facility] OPERATOR [facility] 04-05-2022 14:29-0500 Heart rate 106 /min BORE MILL OPERATOR-Cristina Bermudez Joaquínandrey B[facility] M[facility] OPER[facility] 04-05-2022 14:29-0500 Respiratory rate 16 /min BORE MILL OPERATOR-Cristina Bermudez Joaquínandrey B[facility] M[facility]PER[facility] 04-05-2022 14:29-0500 SaO2% (BldA) [Mass fraction] 98 % BORE MILL OPERATOR-Cristina Lara Jihan [facility] M[facility]PERATOR [facility] 04-05-2022 14:29-0500 Systolic blood pressure 119 mm[Hg] BORE MILL OPERATOR-Cristina Bermudez Joaquínandrey B[facility] M[facility]PERATOR [facility] 04-05-2022 09:02-0500 Body mass index (BMI) [Ratio] 25 kg/m2 BORE MILL OPERATOR-Cristina Lara Jihan [facility] M[facility]PER[facility] 04-05-2022 09:02-0500 Body temperature 98.1 [degF] BORE MILL OPERATOR-Cristina Bermudez Joaquínandrey B[facility] M[facility] OPER[facility] 04-05-2022 09:02-0500 Body weight 70.47 kg BORE MILL OPERATOR-Cristina Lara Bobo [facility]PER[facility] 04-05-2022 09:02-0500 Diastolic blood pressure 77 mm[Hg] BORE MILL OPERATOR-Cristina Bobo [facility] M[facility]PERATOR [facility] 04-05-2022 09:02-0500 Heart rate 108 /min BORE MILL OPERATOR-C Lara Joaquínandrey B[facility] M[facility] OPERATOR [facility] 04-05-2022 09:02-0500 Respiratory rate 16 /min BORE MILL OPERATOR-C Lara Bobo [facility]PER[facility] 04-05-2022 09:02-0500 SaO2% (BldA) [Mass fraction] 98 % BORE MILL OPERATOR-Cristina Bermudez Jihan [facility] M[facility]PER[facility] 04-05-2022 09:02-0500 Systolic blood pressure 109 mm[Hg] BORE MILL OPERATOR-C Lara Joaquínandrey B[facility] M[facility]PERATOR [facility] 03-30-2022 16:47-0500 Diastolic blood pressure 69 mm[Hg] BORE MILL OPERATOR-C Lara Jihan [facility] M[facility]PER[facility] 03-30-2022 16:47-0500 Heart rate 72 /min BORE MILL OPERATOR-C Lara Joaquínandrey B[facility] M[facility]PERATOR [facility] 03-30-2022 16:47-0500 Respiratory rate 16 /min BORE MILL OPERATOR-C Lara Joaquínandrey [facility] M[facility]PER[facility] 03-30-2022 16:47-0500 SaO2% (BldA) [Mass fraction] 98 % BORE MILL OPERATOR-C Lara Joaquínandrey [facility] 03-30-2022 16:47-0500 Systolic blood pressure 117 mm[Hg] BORE MILL OPERATOR-Cristina Bermudez Joaquínandrey [facility] 03-30-2022 12:07-0500 Body height 167.64 cm BORE MILL OPERATOR-Cristina Bermudez Jihan [facility] Work Phone: 03-30-2022 12:07-0500 Body mass index (BMI) [Ratio] 26.6 kg/m2 BORE MILL OPERATOR-Cristina Lara Joaquínandrey B[facility] M[facility] OPERATOR [facility] 03-30-2022 12:07-0500 Body temperature 98.4 [degF] BORE MILL OPERATOR-Cristina Lara Jihan [facility] M[facility]PERATOR [facility] 03-30-2022 12:07-0500 Body weight 74.9 kg BORE MILL OPERATOR-Cristina Bermudez Jihan B[facility] M[facility] OPERATOR [facility] 03-29-2022 09:31-0500 Body mass index (BMI) [Ratio] 25.4 kg/m2 BORE MILL OPERATOR-Cristina Lara Bobo [facility] 03-29-2022 09:31-0500 Body temperature 97.4 [degF] BORE MILL OPERATOR-Cristina Bobo [facility]PER[facility] 03-29-2022 09:31-0500 Body weight 71.38 kg BORE MILL OPERATOR-Cristina Bobo [facility] M[facility]PER[facility] 03-29-2022 09:31-0500 Diastolic blood pressure 95 mm[Hg] BORE MILL OPERATOR-C Lara Bobo [facility] M[facility]PERATOR [facility] 03-29-2022 09:31-0500 Heart rate 101 /min BORE MILL OPERATOR-C Lara Bobo [facility] 03-29-2022 09:31-0500 Respiratory rate 16 /min BORE MILL OPERATOR-C Lara Bobo [facility] M[facility]PER[facility] 03-29-2022 09:31-0500 SaO2% (BldA) [Mass fraction] 100 % BORE MILL OPERATOR-Cristina Bobo [facility] M[facility]PERATOR [facility] 03-29-2022 09:31-0500 Systolic blood pressure 124 mm[Hg] BORE MILL OPERATOR-C Lara Bobo [facility] 03-17-2022 13:34-0500 Body temperature 96.9 [degF] BORE MILL OPERATOR-Cristina Bobo [facility] Work Phone: 03-17-2022 13:34-0500 Diastolic blood pressure 79 mm[Hg] BORE MILL OPERATOR-C Lara Bobo [facility] Work Phone: 03-17-2022 13:34-0500 Heart rate 94 /min BORE MILL OPERATOR-C Lara Bobo [facility] Work Phone: 03-17-2022 13:34-0500 Respiratory rate 16 /min BORE MILL OPERATOR-Cristina Bobo [facility] Work Phone: 03-17-2022 13:34-0500 SaO2% (BldA) [Mass fraction] 100 % BORE MILL OPERATOR-C Lara Bobo [facility] Work Phone: 03-17-2022 13:34-0500 Systolic blood pressure 123 mm[Hg] BORE MILL OPERATOR-C Lara Bobo [facility] Work Phone: 03-17-2022 13:26-0500 Body mass index (BMI) [Ratio] 26.4 kg/m2 BORE MILL OPERATOR-C Lara Bobo [facility] Work Phone: 03-17-2022 13:26-0500 Body weight 74.47 kg BORE MILL OPERATOR-Cristina Lara Bobo [facility] Work Phone: 03-15-2022 11:34-0500 Body mass index (BMI) [Ratio] 26.2 kg/m2 BORE MILL OPERATOR-Cristina Lara Bobo [facility] 03-15-2022 11:34-0500 Body temperature 98.1 [degF] BORE MILL OPERATOR-C Lara Bobo [facility] M[facility] 03-15-2022 11:34-0500 Body weight 73.7 kg BORE MILL OPERATOR-Cristina Bobo [facility] 03-15-2022 11:34-0500 Diastolic blood pressure 84 mm[Hg] BORE MILL OPERATOR-Cristina Bobo [facility] 03-15-2022 11:34-0500 Heart rate 95 /min BORE MILL OPERATOR-C Lara Bobo [facility] 03-15-2022 11:34-0500 Respiratory rate 16 /min BORE MILL OPERATOR-C Lara Bobo [facility] 03-15-2022 11:34-0500 SaO2% (BldA) [Mass fraction] 99 % BORE MILL OPERATOR-Cristina Bobo [facility] 03-15-2022 11:34-0500 Systolic blood pressure 114 mm[Hg] BORE MILL OPERATOR-Cristina Lara Bobo [facility] 03-15-2022 09:35-0500 Body mass index (BMI) [Ratio] 26.2 kg/m2 BORE MILL OPERATOR-Cristina Bobo [facility] 03-15-2022 09:35-0500 Body temperature 98.1 [degF] BORE MILL OPERATOR-Cristina Lara Bobo [facility] M[facility]PERATOR [facility] 03-15-2022 09:35-0500 Body weight 73.7 kg BORE MILL OPERATOR-Cristina Bobo [facility] 03-15-2022 09:35-0500 Diastolic blood pressure 84 mm[Hg] BORE MILL OPERATOR-Cristina Bobo [facility] 03-15-2022 09:35-0500 Heart rate 95 /min BORE MILL OPERATOR-Cristina Bobo [facility] 03-15-2022 09:35-0500 Respiratory rate 16 /min BORE MILL OPERATOR-Cristina Bobo [facility] 03-15-2022 09:35-0500 SaO2% (BldA) [Mass fraction] 99 % BORE MILL OPERATOR-Cristina Bermudez Joaquínandrey B[facility] M[facility] OPERATOR [facility] 03-15-2022 09:35-0500 Systolic blood pressure 114 mm[Hg] BORE MILL OPERATOR-Cristina Bermudez Joaquínandrey B[facility] M[facility] OPERATOR [facility] 03-03-2022 14:00-0500 Diastolic blood pressure 73 mm[Hg] BORE MILL OPERATOR-Cristina Lara Bobo [facility] M[facility]PERATOR [facility] 03-03-2022 14:00-0500 Heart rate 92 /min BORE MILL OPERATOR-C Lara Joaquínandrey B[facility] M[facility] OPERATOR [facility] 03-03-2022 14:00-0500 Respiratory rate 18 /min BORE MILL OPERATOR-Cristina Lara Bobo [facility] 03-03-2022 14:00-0500 SaO2% (BldA) [Mass fraction] 95 % BORE MILL OPERATOR-Cristina Bermudez Jihan [facility] 03-03-2022 14:00-0500 Systolic blood pressure 99 mm[Hg] BORE MILL OPERATOR-Cristina Lara Bobo [facility] 03-03-2022 13:25-0500 Body temperature 97.5 [degF] BORE MILL OPERATOR-Cristina Lara Bobo [facility] 03-03-2022 11:28-0500 Body height 167.64 cm BORE MILL OPERATOR-Cristina Lara Bobo [facility] Work Phone: 03-03-2022 11:28-0500 Body mass index (BMI) [Ratio] 26.1 kg/m2 BORE MILL OPERATOR-Cristina Lara Bobo [facility] 03-03-2022 11:28-0500 Body weight 73.48 kg BORE MILL OPERATOR-Cristina Lara Bobo [facility] 03-02-2022 14:56-0500 Body temperature 97.3 [degF] BORE MILL OPERATOR-Cristina Lara Bobo B[facility] M[facility]PER[facility] 03-02-2022 14:56-0500 Body weight 74.61 kg BORE MILL OPERATOR-Cristina Lara Bobo [facility] 03-02-2022 14:56-0500 Diastolic blood pressure 81 mm[Hg] BORE MILL OPERATOR-Cristina Lara Bobo [facility] 03-02-2022 14:56-0500 Heart rate 93 /min BORE MILL OPERATOR-Cristina Lara Bobo [facility] 03-02-2022 14:56-0500 Respiratory rate 17 /min BORE MILL OPERATOR-C Lara Bobo [facility] 03-02-2022 14:56-0500 SaO2% (BldA) [Mass fraction] 99 % BORE MILL OPERATOR-C Lara Bobo [facility] 03-02-2022 14:56-0500 Systolic blood pressure 122 mm[Hg] BORE MILL OPERATOR-Cristina Bermudez Joaquínandrey B[facility] M[facility] OPERATOR [facility] 03-02-2022 10:16-0500 Body height 167.64 cm BORE MILL OPERATOR-C Lara Joaquínandrey [facility] Work Phone: 03-02-2022 10:13-0500 Body mass index (BMI) [Ratio] 26.5 kg/m2 BORE MILL OPERATOR-Cristina Bermudez Jihan B[facility] M[facility] OPER[facility] 03-02-2022 10:13-0500 Body temperature 97.2 [degF] BORE MILL OPERATOR-C Lara Joaquínandrey [facility] 03-02-2022 10:13-0500 Body weight 74.61 kg BORE MILL OPERATOR-Cristina Bermudez Jihan [facility] M[facility]PER[facility] 03-02-2022 10:13-0500 Diastolic blood pressure 86 mm[Hg] BORE MILL OPERATOR-C Lara Joaquínandrey [facility] M[facility]PER[facility] 03-02-2022 10:13-0500 Heart rate 95 /min BORE MILL OPERATOR-C Lara Joaquínandrey [facility] M[facility]PER[facility] 03-02-2022 10:13-0500 Respiratory rate 16 /min BORE MILL OPERATOR-C Lara Bobo [facility] 03-02-2022 10:13-0500 SaO2% (BldA) [Mass fraction] 98 % BORE MILL OPERATOR-Cristina Bermudez Joaquínandrey [facility] M[facility]PER[facility] 03-02-2022 10:13-0500 Systolic blood pressure 122 mm[Hg] BORE MILL OPERATOR-Cristina Bermudez Joaquínandrey [facility] M[facility] OPERATOR [facility] 02-28-2022 10:07-0500 Body mass index (BMI) [Ratio] 26.4 kg/m2 BORE MILL OPERATOR-Cristina Lara Jihan B[facility] M[facility]PER[facility] 02-28-2022 10:07-0500 Body temperature 98 [degF] BORE MILL OPERATOR-C Lara Jihan [facility] M[facility]PER[facility] 02-28-2022 10:07-0500 Body weight 74.16 kg BORE MILL OPERATOR-C Lara Jihan [facility] M[facility]PER[facility] 02-28-2022 10:07-0500 Diastolic blood pressure 75 mm[Hg] BORE MILL OPERATOR-Cristina Bobo [facility] M[facility]PER[facility] 02-28-2022 10:07-0500 Heart rate 102 /min BORE MILL OPERATOR-C Lara Bobo [facility] 02-28-2022 10:07-0500 Respiratory rate 16 /min BORE MILL OPERATOR-C Lara Bobo [facility] 02-28-2022 10:07-0500 SaO2% (BldA) [Mass fraction] 98 % BORE MILL OPERATOR-Cristina Bobo [facility] 02-28-2022 10:07-0500 Systolic blood pressure 120 mm[Hg] BORE MILL OPERATOR-C Lara Bobo [facility] 02-17-2022 11:29-0400 Body height 167.64 cm BORE MILL OPERATOR-C Lara Bobo [facility] Work Phone: 02-17-2022 11:29-0400 Body weight 72.57 kg BORE MILL OPERATOR-Cristina Bobo [facility] 02-17-2022 11:29-0400 Heart rate 110 /min BORE MILL OPERATOR-C Lara Bobo [facility] 02-17-2022 11:29-0400 Inhaled oxygen concentration 21 % BORE MILL OPERATOR-Cristina Bobo [facility] 02-17-2022 11:29-0400 SaO2% (BldA) [Mass fraction] 98 % BORE MILL OPERATOR-Cristina Bobo [facility] 02-16-2022 08:12-0400 Body mass index (BMI) [Ratio] 26.3 kg/m2 BORE MILL OPERATOR-Cristina Bobo [facility] 02-16-2022 08:12-0400 Body temperature 98.2 [degF] BORE MILL OPERATOR-Cristina Bobo [facility] M[facility]PER[facility] 02-16-2022 08:12-0400 Body weight 73.99 kg BORE MILL OPERATOR-Cristina Bobo [facility] 02-16-2022 08:12-0400 Diastolic blood pressure 82 mm[Hg] BORE MILL OPERATOR-Cristina Bobo [facility] M[facility] OPER[facility] 02-16-2022 08:12-0400 Heart rate 101 /min BORE MILL OPERATOR-C Lara Jihan [facility] M[facility] 02-16-2022 08:12-0400 Respiratory rate 16 /min BORE MILL OPERATOR-C Lara Michener [facility] M[facility]PER[facility] 02-16-2022 08:12-0400 SaO2% (BldA) [Mass fraction] 98 % BORE MILL OPERATOR-Cristina Bobo [facility] M[facility]PER[facility] 02-16-2022 08:12-0400 Systolic blood pressure 133 mm[Hg] BORE MILL OPERATOR-Cristina Bobo [facility] M[facility] OPER[facility] 02-11-2022 14:34-0400 Body temperature 98.1 [degF] BORE MILL OPERATOR-Cristina Bobo [facility] M[facility] OPER[facility] 02-11-2022 14:34-0400 Diastolic blood pressure 75 mm[Hg] BORE MILL OPERATOR-Cristina Bobo [facility] 02-11-2022 14:34-0400 Heart rate 86 /min BORE MILL OPERATOR-Cristina Bobo [facility] 02-11-2022 14:34-0400 Respiratory rate 16 /min BORE MILL OPERATOR-Cristina Bobo [facility] 02-11-2022 14:34-0400 SaO2% (BldA) [Mass fraction] 98 % BORE MILL OPERATOR-Cristina Bobo [facility] 02-11-2022 14:34-0400 Systolic blood pressure 116 mm[Hg] BORE MILL OPERATOR-Cristina Bobo [facility] 02-11-2022 12:22-0400 Body height 167.64 cm BORE MILL OPERATOR-Cristina Bobo [facility] Work Phone: 02-11-2022 12:22-0400 Body mass index (BMI) [Ratio] 25.8 kg/m2 BORE MILL OPERATOR-Cristina Bobo [facility] 02-11-2022 12:22-0400 Body weight 72.6 kg BORE MILL OPERATOR-Cristina Bobo [facility] 02-02-2022 10:22-0400 Body mass index (BMI) [Ratio] 26.2 kg/m2 BORE MILL OPERATOR-Cristina Bobo [facility] 02-02-2022 10:22-0400 Body temperature 97.7 [degF] BORE MILL OPERATOR-Cristina Bobo B[facility] M[facility] OPER[facility] 02-02-2022 10:22-0400 Body weight 73.59 kg BORE MILL OPERATOR-Cristina Bobo [facility] 02-02-2022 10:22-0400 Diastolic blood pressure 86 mm[Hg] BORE MILL OPERATOR-C Lara Bobo [facility] M[facility]PER[facility] 02-02-2022 10:22-0400 Heart rate 94 /min BORE MILL OPERATOR-C Lara Bobo [facility] 02-02-2022 10:22-0400 Respiratory rate 18 /min BORE MILL OPERATOR-C Lara Bobo [facility] M[facility] 02-02-2022 10:22-0400 SaO2% (BldA) [Mass fraction] 99 % BORE MILL OPERATOR-C Lara Bobo [facility] 02-02-2022 10:22-0400 Systolic blood pressure 135 mm[Hg] BORE MILL OPERATOR-C Lara Bobo [facility] 01-31-2022 00:41-0400 Diastolic blood pressure 72 mm[Hg] BORE MILL OPERATOR-C Lara Bobo [facility]PER[facility] 01-31-2022 00:41-0400 Heart rate 89 /min BORE MILL OPERATOR-C Lara Bobo [facility] 01-31-2022 00:41-0400 Respiratory rate 16 /min BORE MILL OPERATOR-C Lara Bobo [facility] 01-31-2022 00:41-0400 SaO2% (BldA) [Mass fraction] 96 % B[employer] MILL OPERATOR-C Lara Bobo [facility] 01-31-2022 00:41-0400 Systolic blood pressure 113 mm[Hg] BORE MILL OPERATOR-C Lara Bobo [facility] 01-30-2022 21:19-0400 Body mass index (BMI) [Ratio] 25.8 kg/m2 BORE MILL OPERATOR-C Lara Bobo [facility] 01-30-2022 21:19-0400 Body temperature 97.8 [degF] B[employer] 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 Start: 09-30-2024 End: 09-30-2024 Patient encounter procedure Shavonne Blanchard BORE MILL OPERATOR- -[facility] Work Phone: Start: 09-30-2024 End: 09-30-2024 ambulatory Lynda Alonso MD Work Phone: [place] Work Phone: Start: 09-27-2024 End: 09-27-[address] Sugar Ramírez MD -[facility] Work Phone: Start: 09-27-2024 End: 09-27-2024 ambulatory Lynda Alonso MD Work Phone: [facility] Work Phone: Start: 09-24-2024 End: 09-24-2024 Patient encounter procedure Dr. Chadwick Munson MD -[facility] Work Phone: Start: 09-24-2024 End: 09-24-2024 ambulatory Lynda Alonso MD Work Phone: [facility] Work Phone: Start: 09-17-2024 ambulatory Chadwick Munson [facility] Start: 09-17-[address] Ashley Munson MD -[facility] Start: 09-11-2024 End: 09-11-2024 ambulatory Lynda Alonso MD Work Phone: [facility] Work Phone: Start: 09-11-2024 End: 09-11-[address] Chadwick Munson MD -[facility] Work Phone: Start: 09-11-2024 End: 09-11-2024 ambulatory Lynda Alonso Facility:[facility] Start: 09-03-2024 End: 09-03-2024 ambulatory Lynda Alonso MD Work Phone: [facility] Work Phone: Start: 09-03-2024 End: 09-03-[address] Chadwick Munson MD -[facility] Work Phone: Start: 09-03-2024 End: 09-03-2024 ambulatory Chadwick Munson Facility:[facility] Start: 08-29-2024 End: 08-29-[address] Chadwick Munson MD -[facility] Work Phone: Start: 08-29-2024 End: 08-29-2024 ambulatory Lynda Alonso MD Work Phone: [facility] Work Phone: Start: 08-28-2024 End: 08-28-2024 Patient encounter procedure Gaye López NP-C -[facility] Work Phone: Start: 08-28-2024 End: 08-28-2024 ambulatory Lynda Alonso MD Work Phone: [facility] Work Phone: Start: 08-26-2024 End: 08-26-2024 ambulatory Lynda Alonso MD Work Phone: [facility] Work Phone: Start: 08-26-2024 End: 08-26-[address] Chadwick Munson MD -[facility] Work Phone: Start: 08-26-2024 End: 08-26-2024 ambulatory Chadwick Munson Facility:[facility] Start: 07-30-2024 [facility] Start: 07-25-2024 ambulatory [facility] Facility:[facility] Start: 06-28-2024 Non-patient / Non-visit Dr. Corey wilson DO -[facility] Start: 06-28-2024 ambulatory Chalon Celeste [facility] Start: 06-24-2024 End: 06-24-2024 ambulatory Lynda Alonso MD Work Phone: [facility] Work Phone: Start: 06-24-2024 End: 06-24-[address] Aly Gupta DO -[facility] Work Phone: Start: 06-24-2024 End: 06-24-2024 ambulatory Gaye López NP Facility:[facility] Start: 06-21-2024 End: 06-21-2024 ambulatory Lynda Alonso MD Work Phone: [facility] Work Phone: Start: 06-21-2024 End: 06-21-[address] Aly Gupta DO -[facility] Work Phone: Start: 06-21-2024 End: 06-21-2024 ambulatory Chalon Celeste Facility:[facility] Start: 06-19-2024 End: 06-19-[address] Chadwick Munson MD -[facility] Work Phone: Start: 06-19-2024 End: 06-19-2024 ambulatory Chalon Celeste [facility] Start: 06-18-2024 End: 06-18-2024 ambulatory Lynda Alonso MD Work Phone: [facility] Work Phone: Start: 06-18-2024 End: 06-18-[address] [facility] Work [facility] Start: 06-18-2024 End: 06-18-2024 ambulatory Chalon Celeste Facility:[facility] Start: 05-21-2024 End: 05-21-2024 ambulatory Chalon Celeste [facility] Start: 05-21-2024 End: 05-21-[address] Blu Mejia MD -[facility] Work Phone: Start: 05-21-2024 End: 05-21-2024 ambulatory Chalon Celeste Facility:[facility] Start: 05-16-2024 End: 05-16-[address] Sarabjit Perdomo MD -[facility] Work Phone: Start: 05-16-2024 End: 05-16-2024 ambulatory Chalon Celeste Facility:[facility] Start: 05-09-2024 End: 05-09-2024 Patient encounter procedure Camilla NAVA -[facility] Work Phone: Start: 05-09-2024 End: 05-09-2024 ambulatory Chalon Celeste [facility] Start: 05-02-2024 End: 05-02-2024 Patient encounter procedure Camilla NAVA -[facility] Work Phone: Start: 05-02-2024 End: 05-02-2024 ambulatory Chalon Celeste Facility:[facility] Start: 04-30-2024 End: 04-30-2024 Emergency department patient visit Dr. Cesar Barbour DO -Emergency Department Work Phone: Start: 04-29-2024 End: 04-29-2024 Emergency department patient visit Dr. Blas GradyDalton DO -Emergency Department Work Phone: Start: 04-28-2024 End: 04-28-2024 Emergency department patient visit ED PHYSICIAN PROVIDER -Emergency Department Work Phone: Start: 04-25-2024 End: 04-25-2024 Patient encounter procedure Trish Wolff NP-Cristina -Laboratory, [place] Work Phone: Start: 04-25-2024 End: 04-25-2024 ambulatory Lynda Alonso Facility:[facility] Start: 04-24-2024 End: 04-24-[address] Sarabjit Perdomo MD -Radiology, [place] Work Phone: Start: 04-24-2024 End: 04-24-2024 ambulatory Chalmelanie Celeste Facility:[facility] Start: 04-18-2024 End: 04-18-2024 Patient encounter procedure Camilla NAVA -[facility] Work Phone: Start: 04-18-2024 End: 04-18-2024 ambulatory Chalon Celeste [facility] Start: 04-16-2024 Encounter for preprocedural laboratory examination Gabriele Guerrero [facility] Start: 04-15-2024 End: 04-15-2024 ambulatory Lynda Alonso MD Work Phone: [facility] Work Phone: Start: 04-15-2024 End: 04-15-[address] Lynda Alonso MD -Physical Therapy Work Phone: Start: 04-15-[address] Lynda Alonso MD -Physical Therapy Work Phone: Start: 03-22-2024 End: 03-22-[address] Lynda Alonso MD -[facility] Start: 03-22-2024 End: 03-22-2024 ambulatory Chalon Celeste Facility:[facility] Start: 03-11-[address] Ashley Munson MD -[facility] Start: 03-11-2024 End: 03-11-[address] Chadwick Munson MD -[facility] Work Phone: Start: 03-11-2024 End: 03-11-2024 ambulatory Chadwick Munson Facility:[facility] Start: 03-07-2024 End: 03-07-[address] Chadwick Munson MD -Nuclear Medicine, [facility] Work Phone: Start: 03-07-2024 End: 03-07-2024 ambulatory hCadwick Munson Facility:[facility] Start: 03-05-2024 Non-patient / Non-visit Lorena GRANT -[facility] Work Phone: Start: 03-05-20[facility] Start: 03-04-2024 ambulatory Chalon Celeste [facility] Start: 03-04-2024 Non-patient / Non-visit Dr. Radha MCGARRY -[facility] Start: 03-04-2024 End: 03-04-[address] Gabrieel Guerrero MD -Cat Scan, [facility] Work Phone: Start: 03-04-2024 End: 03-04-2024 ambulatory Chalon Celeste Facility:[facility] Start: 02-16-2024 End: 02-16-2024 ambulatory [facility] Facility:[facility] Start: 02-06-2024 End: 02-06-2024 ambulatory Chalon Celeste [facility] Start: 01-16-2024 End: 01-17-2024 ambulatory Chalon Celeste Facility:[facility] Start: 01-05-2024 ambulatory Chalon Celeste [facility] Start: 01-05-2024 End: 01-05-2024 ambulatory Chalon Celeste Facility:[facility] Start: 01-03-2024 End: 01-03-2024 ambulatory Chalon Celeste [facility] Start: 01-01-2024 ambulatory Chalon Celeste [facility] Start: 12-29-2023 Encounter for preprocedural laboratory examination Elida Raphael [facility] Start: 12-28-2023 ambulatory Chalon Celeste [facility] Start: 12-26-2023 ambulatory Chalon Celeste [facility] Start: 12-13-2023 End: 12-14-2023 ambulatory Chalon Celeste Facility:[facility] Start: 12-12-2023 ambulatory Aly Gupta [facility]: [facility] Start: 12-06-2023 ambulatory Chalon Celeste [facility] Start: 12-04-2023 End: 12-04-2023 ambulatory Chalon Celeste Facility:[facility] Start: 11-30-2023 End: 11-30-2023 ambulatory Chalon Celeste [facility] Start: 11-27-2023 End: 11-27-2023 ambulatory Elida Aquinoata Facility:[facility] Start: 11-24-2023 End: 11-24-2023 ambulatory Chalon Celeste Facility:[facility] Start: 11-22-2023 ambulatory Chalon Celeste [facility] Start: 11-22-2023 End: 11-22-2023 ambulatory Chalon Celeste Facility:[facility] Start: 11-13-2023 End: 11-13-2023 ambulatory Chalon Celeste [facility] Start: 10-26-2023 End: 10-26-2023 ambulatory Chalon Celeste Facility[facility] Start: 10-20-2023 End: 10-20-2023 ambulatory Chalon Celeste Facility:[facility] Start: 2023 End: 2023 ambulatory DO Marce Jack Work Phone: [facility] Work Phone: Start: 2023 End: 2023 Patient encounter procedure RUBY-Cristina Bobo BORE MILL OPERATOR [facility] Work Phone: Start: 08-03-2023 End: 08-03-2023 ambulatory BORE MILL OPERATOR-Cristina Bobo BORE MILL OPERATOR [facility] Work Phone: Start: 08-03-2023 End: 08-03-2023 Patient encounter procedure BORE MILL OPERATOR-Cristina Bobo BORE MILL OPERATOR [facility] Work Phone: Start: 07-24-2023 Non-patient / Non-visit BORE MILL OPERATOR-Cristina Bobo BORE MILL OPERATOR [facility] Start: 07-24-2023 End: 07-24-2023 ambulatory BORE MILL OPERATOR-Cristina Bobo BORE MILL OPERATOR [facility] Work Phone: Start: 07-24-2023 End: 07-24-2023 Patient encounter procedure BORE MILL OPERATOR-Cristina Bobo BORE MILL OPERATOR [facility]-Cardiovascula r Services Work Phone: Start: 07-04-2023 End: 07-04-2023 ambulatory DO Marce Jack Work Phone: [facility] Work Phone: Start: 07-04-2023 End: 07-04-2023 Patient encounter procedure DO Marce Jack Work Phone: [facility] Work Phone: Start: 06-21-2023 End: 06-21-2023 ambulatory DO Marce Jack Work Phone: [facility] Work Phone: Start: 06-21-2023 End: 06-21-2023 Patient encounter procedure DO Marce Jack Work Phone: [facility]-Outpatient Breast Imaging Work Phone: Start: 06-16-2023 End: 06-16-2023 Patient encounter procedure DO Marce Jack Work Phone: [facility] Work Phone: Start: 06-01-2023 Non-patient / Non-visit DO Veronica Jack Work Phone: [facility] Work Phone: Start: 05-11-2023 Registered Recurring DO Kassie Jack Work Phone: [facility] Start: 05-11-2023 End: 05-11-2023 Patient encounter procedure DO Marce Jack Work Phone: [facility] Work Phone: Start: 04-14-2023 End: 04-14-2023 Patient encounter procedure DO aMrce Mannnger Work Phone: [facility] Work Phone: Start: 03-24-2023 End: 03-24-2023 Patient encounter procedure RUBY-Cristina Bobo NP [facility] Work Phone: Start: 03-21-2023 End: 03-21-2023 ambulatory BORE MILL OPERATOR-Cristina Bobo BORE MILL OPERATOR [facility] Work Phone: Start: 03-21-2023 End: 03-21-2023 Patient encounter procedure RUBY-Cristina Bobo NP [facility] Work Phone: Start: 03-20-2023 End: 03-20-2023 ambulatory RUBY-Cristina Bobo BORE MILL OPERATOR [facility] Work Phone: Start: 03-20-2023 End: 03-20-2023 Patient encounter procedure RUDY Bobo NP [facility] Start: 03-03-2023 Registered Recurring BORE MILL OPERATOR-Cristina Bobo NP [facility] Start: 02-15-2023 End: 02-15-2023 Patient encounter procedure BORE MILL OPERATOR-Cristina Bobo NP [facility] Work Phone: Start: 02-09-2023 End: 02-09-2023 Patient encounter procedure BORE MILL OPERATOR-Cristina Bobo BORE MILL OPERATOR [facility] Work Phone: Start: 02-02-2023 End: 02-02-2023 ambulatory BORE MILL OPERATOR-Cristina Bobo BORE MILL OPERATOR [facility] Work Phone: Start: 02-02-2023 End: 02-02-2023 Patient encounter procedure BORE MILL OPERATOR-Cristina Bobo BORE MILL OPERATOR [facility]-Cat Scan, [facility] Work Phone: Start: 02-02-2023 Registered Recurring BORE MILL OPERATOR-Cristina Bobo NP [facility] Start: 01-26-2023 End: 01-26-2023 ambulatory BORE MILL OPERATOR-Cristina Bobo BORE MILL OPERATOR [facility] Work Phone: Start: 01-26-2023 End: 01-26-2023 Patient encounter procedure BORE MILL OPERATOR-Cristina Bobo BORE MILL OPERATOR [facility] Work [facility] Start: 01-05-2023 Registered Recurring BORE MILL OPERATOR-Cristina Bobo BORE MILL OPERATOR [facility] Start: 12-09-2022 End: 12-09-2022 Patient encounter procedure BORE MILL OPERATOR-Cristina Bobo NP [facility] Work Phone: Start: 12-02-2022 End: 12-02-2022 ambulatory BORE MILL OPERATOR-Cristina Bobo BORE MILL OPERATOR [facility] Work Phone: Start: 12-02-2022 End: 12-02-2022 Patient encounter procedure BORE MILL OPERATOR-Cristina Bobo BORE MILL OPERATOR [facility]-MRI - [facility] Work Phone: Start: 11-29-2022 Non-patient / Non-visit BORE MILL OPERATOR-Cristina Bobo NP [facility] Start: 11-28-2022 End: 11-28-2022 ambulatory BORE MILL OPERATOR-Cristina Bobo BORE MILL OPERATOR [facility] Work Phone: Start: 11-28-2022 End: 11-28-2022 Patient encounter procedure BORE MILL OPERATOR-Cristina Bobo BORE MILL OPERATOR [facility]-Pulmonary Services/Neurology Work Phone: Start: 11-10-2022 Non-patient / Non-visit BORE MILL OPERATOR-Cristina Bobo NP [facility] Work Phone: Start: 11-10-2022 Registered Recurring BORE MILL OPERATOR-Cristina Bobo BORE MILL OPERATOR [facility] Start: 11-10-2022 End: 11-10-2022 Patient encounter procedure BORE MILL OPERATOR-Cristina Bobo NP [facility] Work Phone: Start: 11-10-2022 Non-patient / Non-visit BORE MILL OPERATOR-Cristina Bobo NP [facility] Start: 11-10-2022 End: 11-10-2022 ambulatory BORE MILL OPERATOR-Cristina Bobo BORE MILL OPERATOR [facility] Work Phone: Start: 11-10-2022 End: 11-10-2022 Patient encounter procedure BORE MILL OPERATOR-Cristina Bobo NP [facility]-Cardiovascula r Services Work Phone: Start: 10-28-2022 End: 10-28-2022 Patient encounter procedure RUBY-Cristina Bobo NP [facility] Work Phone: Start: 09-27-2022 End: 09-27-2022 Patient encounter procedure BORE MILL OPERATOR-Cristina Bobo NP [facility] Work Phone: Start: 09-20-2022 Non-patient / Non-visit BORE MILL OPERATOR-Cristina Bobo NP [facility] Work Phone: Start: 09-09-2022 End: 09-09-2022 Patient encounter procedure BORE MILL OPERATOR-Cristina Bobo NP [facility] Start: 09-02-2022 End: 09-02-2022 ambulatory BORE MILL OPERATOR-Cristina Bobo BORE MILL OPERATOR [facility] Work Phone: Start: 09-02-2022 End: 09-02-2022 Patient encounter procedure BORE MILL OPERATOR-Cristina Bobo BORE MILL OPERATOR [facility] Start: 08-01-2022 Registered Recurring BORE MILL OPERATOR-Cristina Bobo BORE MILL OPERATOR [facility] Start: 08-01-2022 End: 08-01-2022 Patient encounter procedure BORE MILL OPERATOR-Cristina Bobo BORE MILL OPERATOR [facility] Start: 07-29-2022 End: 07-29-2022 Discharged Recurring BORE MILL OPERATOR-Cristina Bobo BORE MILL OPERATOR [facility]-Physical Therapy Start: 06-30-2022 End: 06-30-2022 Patient encounter procedure BORE MILL OPERATOR-Cristina Bobo BORE MILL OPERATOR [facility] Start: 06-27-2022 End: 06-27-2022 Patient encounter procedure BORE MILL OPERATOR-Cristina Bobo BORE MILL OPERATOR [facility] Start: 06-15-2022 End: 06-15-2022 Patient encounter procedure BORE MILL OPERATOR-Cristina Bobo BORE MILL OPERATOR [facility] Start: 06-07-2022 End: 06-07-2022 Patient encounter procedure BORE MILL OPERATOR-Cristina Bobo BORE MILL OPERATOR [facility] Start: 05-31-2022 End: 05-31-2022 Patient encounter procedure BORE MILL OPERATOR-Cristina Bobo BORE MILL OPERATOR [facility] Start: 05-31-2022 Registered Recurring BORE MILL OPERATOR-Cristina Bobo BORE MILL OPERATOR [facility] Start: 05-31-2022 End: 05-31-2022 Patient encounter procedure BORE MILL OPERATOR-Cristina Bobo BORE MILL OPERATOR [facility] Start: 05-25-2022 End: 05-25-2022 ambulatory BORE MILL OPERATOR-Cristina Bobo BORE MILL OPERATOR [facility] Work Phone: Start: 05-25-2022 End: 05-25-2022 Patient encounter procedure BORE MILL OPERATOR-Cristina Bobo BORE MILL OPERATOR [facility] Start: 05-24-2022 End: 05-24-2022 Patient encounter procedure BORE MILL OPERATOR-Cristina Bobo NP [facility] Start: 05-16-2022 End: 05-16-2022 Patient encounter procedure BORE MILL OPERATOR-Cristina Bobo BORE MILL OPERATOR [facility] Start: 05-10-2022 End: 05-10-2022 Patient encounter procedure BORE MILL OPERATOR-Cristina Bobo BORE MILL OPERATOR [facility] Start: 05-03-2022 Registered Recurring BORE MILL OPERATORLisa Bobo BORE MILL OPERATOR [facility] Start: 05-03-2022 End: 05-03-2022 Patient encounter procedure BORE MILL OPERATOR-Cristina Bobo NP [facility] Start: 04-27-2022 Non-patient / Non-visit BORE MILL OPERATORLisa Bobo BORE MILL OPERATOR [facility] Start: 04-26-2022 End: 04-26-2022 Patient encounter procedure BORE MILL OPERATOR-Cristina Bobo NP [facility] Start: 04-21-2022 End: 04-21-2022 Patient encounter procedure BORE MILL OPERATOR-Cristina Bobo BORE MILL OPERATOR [facility] Start: 04-19-2022 End: 04-19-2022 Non-patient / Non-visit BORE MILL OPERATOR-Cristina Bobo NP [facility] Start: 04-19-2022 End: 04-19-2022 ambulatory BORE MILL OPERATOR-Cristina Bobo BORE MILL OPERATOR [facility] Work Phone: Start: 04-19-2022 End: 04-19-2022 Patient encounter procedure BORE MILL OPERATOR-Cristina Bobo BORE MILL OPERATOR [facility]-Pulmonary Services/Neurology Start: 04-19-2022 End: 04-19-2022 Patient encounter procedure BORE MILL OPERATOR-Cristina Bobo NP [facility] Start: 04-14-2022 End: 04-14-2022 Patient encounter procedure BORE MILL OPERATOR-Cristian Bobo BORE MILL OPERATOR [facility] Start: 04-13-2022 End: 04-13-2022 Patient encounter procedure BORE MILL OPERATOR-Cristina Bobo BORE MILL OPERATOR [facility] Start: 04-12-2022 End: 04-12-2022 Patient encounter procedure BORE MILL OPERATOR-Cristina Bobo BORE MILL OPERATOR [facility] Start: 04-07-2022 End: 04-07-2022 Patient encounter procedure BORE MILL OPERATOR-Cristina Bobo BORE MILL OPERATOR [facility] Start: 04-05-2022 End: 04-05-2022 Patient encounter procedure BORE MILL OPERATOR-Cristina Bobo BORE MILL OPERATOR [facility] Start: 04-05-2022 End: 04-05-2022 Patient encounter procedure BORE MILL OPERATOR-Cristina Bobo BORE MILL OPERATOR [facility] Start: 03-30-2022 End: 03-30-2022 Emergency department patient visit BORE MILL OPERATOR-Cristina Bobo BORE MILL OPERATOR [facility]Emergency Department Start: 03-29-2022 Non-patient / Non-visit BORE MILL OPERATOR-Cristina Bobo BORE MILL OPERATOR [facility] Start: 03-29-2022 End: 03-29-2022 Patient encounter procedure BORE MILL OPERATOR-Cristina Bobo BORE MILL OPERATOR [facility] Start: 03-29-2022 Registered Recurring RUDY Bobo BORE MILL OPERATOR [facility] Start: 03-22-2022 End: 03-22-2022 ambulatory BORE MILL OPERATOR-Cristina Bobo BORE MILL OPERATOR [facility] Work Phone: Start: 03-22-2022 End: 03-22-2022 Patient encounter procedure BORE MILL OPERATOR-Cristina Bobo BORE MILL OPERATOR [facility]-Outpatient Breast Imaging Start: 03-21-2022 Non-patient / Non-visit BORE MILL OPERATOR-Cristina Bobo BORE MILL OPERATOR [facility] Start: 03-15-2022 End: 03-15-2022 Patient encounter procedure BORE MILL OPERATOR-Cristina Bobo BORE MILL OPERATOR [facility] Start: 03-15-2022 End: 03-15-2022 Patient encounter procedure BORE MILL OPERATOR-Cristina Bobo BORE MILL OPERATOR [facility] Start: 03-04-2022 End: 03-04-2022 Patient encounter procedure BORE MILL OPERATOR-Cristina Bobo BORE MILL OPERATOR [facility] Start: 03-03-2022 Non-patient / Non-visit BORE MILL OPERATOR-Cristina Bobo NP [facility] Start: 03-03-2022 End: 03-03-2022 Admission to same day surgery center [facility]BY[facility] Start: 03-03-2022 End: 03-03-2022 ambulatory BORE MILL OPERATOR-Cristina Bobo BORE MILL OPERATOR [facility] Work Phone: Start: 03-02-2022 End: 03-02-2022 Patient encounter procedure BORE MILL OPERATOR-Cristina Bobo NP [facility] Start: 03-02-2022 End: 03-02-2022 Patient encounter procedure BORE MILL OPERATOR-Cristina Bobo NP [facility] Start: 02-28-2022 Registered Recurring RUDY Bobo BORE MILL OPERATOR [facility] Start: 02-28-2022 End: 02-28-2022 Patient encounter procedure BORE MILL OPERATOR-Cristina Bobo NP [facility] Start: 02-28-2022 End: 02-28-2022 ambulatory BORE MILL OPERATOR-Cristina Bobo BORE MILL OPERATOR [facility] Work Phone: Start: 02-28-2022 End: 02-28-2022 Patient encounter procedure BORE MILL OPERATOR-Cristina Bobo NP [facility] Start: 02-23-2022 End: 02-23-2022 ambulatory BORE MILL OPERATOR-Cristina Bobo BORE MILL OPERATOR [facility] Work Phone: Start: 02-23-2022 End: 02-23-2022 Patient encounter procedure BORE MILL OPERATOR-Cristina Bobo NP [facility] Start: 02-18-2022 Non-patient / Non-visit BORE MILL OPERATORLisa Bobo NP [facility] Start: 02-17-2022 End: 02-17-2022 Patient encounter procedure BORE MILL OPERATOR-Cristina Bobo NP [facility]-Pulmonary Services/Neurology Start: 02-16-2022 End: 02-16-2022 Patient encounter procedure BORE MILL OPERATORLisa Bobo NP [facility]Pulmonary Medicine [facility] Start: 02-15-2022 Non-patient / Non-visit BORE MILL OPERATOR-Cristina Bobo BORE MILL OPERATOR [facility] Start: 02-14-2022 End: 02-14-2022 ambulatory BORE MILL OPERATOR-C Lara Bobo BORE MILL OPERATOR [facility] Work Phone: Start: 02-14-2022 End: 02-14-2022 Patient encounter procedure BORE MILL OPERATOR-Cristina Bobo BORE MILL OPERATOR [facility]-Pulmonary Services/Neurology Start: 02-11-2022 Non-patient / Non-visit BORE MILL OPERATOR-Cristina guthriejhony Jihan BORE MILL OPERATOR [facility] Start: 02-11-2022 End: 02-11-2022 Admission to same day surgery center BORE MILL OPERATOR-Cristina Bobo BORE MILL OPERATOR [facility]-Endoscopy Start: 02-11-2022 End: 02-11-2022 ambulatory BORE MILL OPERATOR-C Lara Bobo BORE MILL OPERATOR [facility] Work Phone: Start: 02-10-2022 End: 02-10-2022 ambulatory BORE MILL OPERATOR-C aLra Bobo BORE MILL OPERATOR [facility] Work Phone: Start: 02-10-2022 End: 02-10-2022 Patient encounter procedure BORE MILL OPERATOR-Cristina Bobo BORE MILL OPERATOR [facility] Start: 02-07-2022 End: 02-07-2022 ambulatory BORE MILL OPERATOR-C Lara Bobo BORE MILL OPERATOR [facility] Work Phone: Start: 02-07-2022 End: 02-07-2022 Patient encounter procedure BORE MILL OPERATOR-Cristina Bobo BORE MILL OPERATOR [facility] [facility] Start: 02-02-2022 End: 02-02-2022 Patient encounter procedure BORE MILL OPERATOR-Cristina Bobo BORE MILL OPERATOR [facility] Start: 01-30-2022 End: 01-31-2022 Emergency department patient visit BORE MILL OPERATOR-Cristina Bobo BORE MILL OPERATOR [facility] Procedures Date Procedure Procedure Detail Performing Clinician Start: 09-17-2024 PET study for locali zation of tumor Lynda Alonso MD Work Phone: Start: 09-11-2024 Vitamin D, 25-hydrox y measurement yLnda Alonso MD Work Phone: Comment on above: Vitamin D StatusDefi ciency: <20 ng/mL (50nmol/L)Insufficiency: 20-30 ng/mL (50-75 nmol/L)Sufficiency: 30-100 ng/mL (75-250 nmol/L)Toxicity: >100 ng/mL (>250 nmol/L) Start: 09-03-2024 Plain chest X-ray Manjit Alonso MD Work Phone: Start: 09-03-2024 Plain chest X-ray Manjit Alonso MD Work Phone: Start: 09-03-2024 Biopsy/Inj or Needle Placement Lynda Alonso MD Work Phone: Start: 08-26-2024 CT of thorax and abd omen with contrast Lynda Alonso MD Work Phone: Start: 06-21-2024 MRI of brain with contrast Lynda Alonso MD Work Phone: Start: 06-18-2024 CT of thorax and abd omen with contrast Lynda Alonso MD Work Phone: Start: 05-21-2024 Measurement of renal function Lynda Alonso MD Work Phone: Comment on above: GFR Calc Start: 05-16-2024 MRI of pelvis Lynda griffin MD Work Phone: Start: 05-02-2024 MRI of lumbar spine Rhonda Alonso MD Work Phone: Start: 04-30-2024 Urnls dip stick/tabl et reagent auto microscopy Lynda Alonso MD Work Phone: Start: 04-30-2024 Estimated creatinine clearance Lynda Alonso MD Work Phone: Start: 04-30-2024 Measurement of renal function Lynda Alonso MD Work Phone: Comment on above: GFR Calc Start: 04-29-2024 Computed tomography of abdomen and pelvis with intravenous contrast Lynda Alonso MD Work Phone: Start: 04-24-2024 Plain radiography of pelvis Lynda Alonso MD Work Phone: Start: 04-18-2024 X-ray of lumbosacral spine Lynda Alonso MD Work Phone: Start: 03-11-2024 Assay of phosphorus inorganic Lynda Alonso MD Work Phone: Start: 03-11-2024 Estimated creatinine clearance Lynda Alonso MD Work Phone: Start: 03-11-2024 Measurement of renal function Lynda Alonso MD Work Phone: Comment on above: GFR Calc Start: 03-07-2024 Radionuclide whole b tacos bone study Lynda Alonso MD Work Phone: Start: 03-04-2024 CT angiography of co ronary arteries Lynda Alonso MD Work Phone: Start: 03-04-2024 CT of thorax and abd omen with contrast Lynda Alonso MD Work Phone: Start: 11-07-2023 PET study for locali zation of tumor Lynda Alonso MD Work Phone: Start: 2023 CT of chest and abdomen BORE MILL OPERATOR-C Lara Michener BORE MILL OPERATOR Start: 08-03-2023 MRI of brain with contrast BORE MILL OPERATOR-C Lara Michener BORE MILL OPERATOR Start: 06-21-2023 Screening mammography Rosio Jack Work Phone: Start: 03-21-2023 MRI of brain with contrast BORE MILL OPERATOR-C Lara Michener BORE MILL OPERATOR Start: 02-02-2023 CT of chest and abdomen BORE MILL OPERATOR-C Lara Michener BORE MILL OPERATOR Start: 01-26-2023 Plain chest X-ray BORE MILL OPERATOR-C Lara Michener BORE MILL OPERATOR Start: 12-02-2022 MRI of brain with contrast BORE MILL OPERATOR-C Lara Michener BORE MILL OPERATOR Start: 09-02-2022 MRI of brain with contrast BORE MILL OPERATOR-C Lara Michener BORE MILL OPERATOR Start: 07-26-2022 PET study for locali zation of tumor BORE MILL OPERATOR-C Lara Michener BORE MILL OPERATOR Start: 06-27-2022 MRI of brain with contrast BORE MILL OPERATOR-C Lara Michener BORE MILL OPERATOR Start: 06-15-2022 Allergen spec ige cr ude allergen extract each Lynda Alonso MD Work Phone: Start: 05-25-2022 CT angiography of ch est with contrast BORE MILL OPERATOR-Cristina Bobo BORE MILL OPERATOR Start: 03-22-2022 Screening mammography N P-Cristina Bobo BORE MILL OPERATOR Start: 03-03-2022 Implantation to cardiovascular system BORE MILL OPERATOR-Cristina Bobo BORE MILL OPERATOR Start: 03-03-2022 Radiographic procedu re of chest BORE MILL OPERATOR-Cristina Bobo BORE MILL OPERATOR Start: 03-03-2022 Fluoroscopic guidance N P-Cristina Bobo BORE MILL OPERATOR Start: 02-28-2022 MRI of brain with contrast BORE MILL OPERATOR-Cristina Bobo BORE MILL OPERATOR Start: 02-23-2022 PET study for locali zation of tumor BORE MILL OPERATOR-Cristina Bobo BORE MILL OPERATOR Start: 02-11-2022 Endoscopic ultrasono graphy of bronchus BORE MILL OPERATOR-Cristina Bobo BORE MILL OPERATOR Start: 02-10-2022 Computed tomography of abdomen and pelvis with contrast BORE MILL OPERATOR-Cristina Bobo BORE MILL OPERATOR Start: 01-30-2022 CT angiography of ch est with contrast BORE MILL OPERATOR-Cristina Bobo BORE MILL OPERATOR Start: 01-30-2022 Plain chest X-ray BORE MILL OPERATOR-C Lara Bobo BORE MILL OPERATOR Plan of Treatment Date Care Activity Detail Author Start: 09-30-2024 Patient referral [facility] Work Phone: Start: 09-24-2024 Patient referral [facility] Work Phone: Start: 09-11-2024 Vitamin D, 25-hydroxy measurement [facility] Start: 09-03-2024 CORE NDL BX LNG/MED PERQ CORE NDL BX LNG/MED PERQ [facility] Start: 09-03-2024 Following clinical pathway protocol [facility] Start: 09-03-2024 Catheterization of vein [facility] Start: 09-03-2024 Oxygen therapy [facility] Start: 09-03-2024 Patient discharge [facility] Start: 09-03-2024 Vital signs measurements [facility] Start: 04-30-2024 [facility] Start: 04-29-2024 [facility] Start: 04-18-2024 Patient referral [facility] Work Phone: Start: 08-03-2023 Venous catheter care management [facility] Start: 03-21-2023 Venous catheter care management [facility] Start: 02-02-2023 Venous catheter care management [facility] Start: 12-02-2022 Venous catheter care management [facility] Start: 09-09-2022 Patient referral [facility] Work Phone: Start: 09-02-2022 Venous catheter care management [facility] Start: 06-27-2022 Venous catheter care management [facility] Start: 06-27-2022 MR Brain WO and W contrast IV [facility] Start: 06-15-2022 Patient referral [facility] Work Phone: Start: 06-08-2022 Administration of blood product [facility] Start: 06-08-2022 [facility] Start: 05-25-2022 Venous catheter care management [facility] Start: 05-04-2022 Vital signs measurements [facility] Start: 05-03-2022 Vital signs measurements [facility] Start: 04-07-2022 Vital signs measurements [facility] Start: 04-06-2022 Vital signs measurements [facility] Start: 04-05-2022 Vital signs measurements [facility] Start: 03-17-2022 Vital signs measurements [facility] Start: 03-16-2022 Vital signs measurements [facility] Start: 03-15-2022 Venous catheter care management [facility] Start: 03-15-2022 Vital signs measurements [facility] Start: 03-03-2022 Anesthesia access central venous circulation ANESTH VASCULAR ACCESS [facility] Start: 03-03-2022 Insj tunneled ctr vad w/subq port age 7 yr/> INSERT TUNNELED CV CATH [facility] Start: 03-03-2022 Patient discharge [facility] Start: 02-28-2022 Patient referral [facility] Work Phone: Start: 02-16-2022 Patient referral [facility] Work Phone: Start: 02-11-2022 [facility] ebus guided sampl 3/> node station/strux BRONCH EBUS SAMPLNG 3/> NODE [facility] Start: 02-11-2022 Patient discharge [facility] Alanine aminotransfe rase [Enzymatic activity/volume] in Serum or Plasma [facility] Albumin [Mass/volume ] in Serum or Plasma [facility] Alkaline phosphatase [Enzymatic activity/volume] in Serum or Plasma [facility] Anion gap in Serum or Plasma [facility] Bilirubin, total measurement [facility] Blood chemistry [facility] BUN/Creatinine ratio [facility] Calcium [Mass/volume ] in Serum or Plasma [facility] Carbon dioxide, tota l [Moles/volume] in Central venous blood [facility] CBC W Auto Different ial panel - Blood [facility] CBC W Auto Different ial panel - Blood [facility] CBC W Auto Different ial panel - Blood [facility] CBC W Auto Different ial panel - Blood [facility] CBC W Auto Different ial panel - Blood [facility] CBC W Auto Different ial panel - Blood [facility] Creatinine [Mass/vol ume] in Serum or Plasma [facility] CT Chest and Abdomen W contrast IV [facility] CT Chest and Abdomen W contrast IV [facility] Erythrocyte mean cor puscular volume determination [facility] Exercise tolerance test [facility] Work Phone: Glucose [Mass/volume ] in Serum or Plasma [facility] Hematocrit [Volume F raction] of Blood [facility] Hemoglobin [Mass/vol ume] in Blood [facility] Leukocytes [#/volume ] in Blood [facility] Magnesium [Mass/volu me] in Serum or Plasma [facility] Magnesium measurement [facility] Mean corpuscular hem oglobin concentration determination [facility] Mean corpuscular hem oglobin determination [facility] Measurement of renal function [facility] Measurement of respi ratory function [facility] Work Phone: Measurement of respi ratory function [facility] MR Brain WO and W co ntrast IV [facility] Work Phone: MR Brain WO and W co ntrast IV [facility] MR Brain WO and W co ntrast IV [facility] MR Brain WO and W co ntrast IV [facility] MR Brain WO and W co ntrast IV [facility] MR Brain WO and W co ntrast IV [facility] MR Lumbar spine WO a nd W contrast IV [facility] MR Pelvis WO and W c ontrast IV [facility] Neutrophil count [facility] Neutrophil percent differential count [facility] Patient Education [facility] Work Phone: Patient referral [facility] Work Phone: Platelets [#/volume] in Blood [facility] Positron emission to mography with computed tomography [facility] Work Phone: Positron emission [facility] with computed tomography [facility] Potassium measurement [facility] PT Unspecified body region [facility] PT Unspecified body region [facility] Red blood cell count [facility] Red cell distributio n width determination [facility] Serum chloride measurement [facility] Sodium measurement [facility] Thyroid stimulating hormone measurement [facility] Total protein measurement [facility] Urea nitrogen [Mass/ volume] in Serum or Plasma [facility] Immunizations Immunization Date Immunization Notes Care Provider Fa cili 02-28-2022 influenza, injectabl e, quadrivalent, preservative free BORE MILL OPERATOR-C Lara Bobo BORE MILL OPERATOR [facility] 02-28-2022 influenza, seasonal, injectable BORE MILL OPERATOR-C Lara Bobo BORE MILL OPERATOR [facility] Payers Date Payer Category Payer Unknown [id number] 2023 Medicare [id number] 2022 Medicare [id number] 2022 Self-pay [id number] 2022 Unknown 0 [id number] 2015 Private Health Insurance [facility] [id number] Unknown [id number] Unknown [facility] [id number] Unknown [id number] 2.16.840.1.673630.3.579.2.462 Unknown [id number] 2.16.840.1.839735.3.579.2.462 Unknown [id number] 2.16.840.1.733668.3.579.2.462 Unknown [id number] 2.16.840.1.299010.3.579.2.462 Unknown [id number] 2.16.840.1.470500.3.579.2.462 Unknown [id number] 2.16.840.1.928210.3.579.2.462 Unknown [id number] 2.16.840.1.847188.3.579.2.462 Unknown [id number] 2.16.840.1.568240.3.579.2.462 Unknown [id number] 2.16.840.1.708327.3.579.2.462 Unknown [id number] 2.16.840.1.839646.3.579.2.462 Unknown [id number] 2.16.840.1.489001.3.579.2.462 Unknown [id number] 2.16.840.1.790013.3.579.2.462 Unknown [id number] 2.16.840.1.703100.3.579.2.462 Unknown [id number] 2.16.840.1.922746.3.579.2.462 Unknown [id number] 2.16.840.1.096843.3.579.2.462 Unknown [id number] 2.16.840.1.766702.3.579.2.462 Unknown [id number] 2.16.840.1.928770.3.579.2.462 Unknown [id number] 2.16.840.1.972367.3.579.2.462 Unknown [id number] 2.16.840.1.523543.3.579.2.462 Unknown [id number] 2.16.840.1.914138.3.579.2.462 Unknown [id number] 2.16.840.1.999954.3.579.2.462 Unknown [id number] 2.16.840.1.127480.3.579.2.462 Unknown [id number] 2.16.840.1.822540.3.579.2.462 Unknown [id number] 2.16.840.1.964209.3.579.2.462 Unknown [id number] 2.16.840.1.137317.3.579.2.462 Unknown [id number] 2.16.840.1.047075.3.579.2.462 Unknown [id number] 2.16.840.1.984212.3.579.2.462 Unknown [id number] 2.16.840.1.655656.3.579.2.462 Unknown [id number] 2.16.840.1.881131.3.579.2.462 Unknown [id number] 2.16.840.1.462347.3.579.2.462 Unknown [id number] 2.16.840.1.605201.3.579.2.462 Unknown [id number] 2.840.1.537154.3.579.2.462 Unknown [id number] 2.840.1.250172.3.579.2.462 Unknown [id number] 2.840.1.256046.3.579.2.462 Unknown [id number] 2.840.1.718153.3.579.2.462 Unknown [id number] 2.840.1.124119.3.579.2.462 Unknown [id number] 2.840.1.990971.3.579.2.462 Unknown [id number] 2.840.1.679884.3.579.2.462 Unknown [id number] 2.840.1.115795.3.579.2.462 Unknown [id number] 2.840.1.323722.3.579.2.462 Unknown [id number] 2.840.1.046037.3.579.2.462 Unknown [id number] 2.840.1.672399.3.579.2.462 Unknown [id number] 2.840.1.356785.3.579.2.462 Unknown [id number] 2.840.1.201272.3.579.2.462 Unknown [id number] 2.840.1.900641.3.579.2.462 Unknown [id number] .840.1.729937.3.579.2.462 Unknown [id number] 2.840.1.598152.3.579.2.462 Unknown [id number] 2.840.1.921256.3.579.2.462 Unknown [id number] 2.840.1.140217.3.579.2.462 Unknown [id number] 2.16.840.1.125747.3.579.2.462 Unknown [id number] 2.16.840.1.496561.3.579.2.462 Unknown [id number] 2.16.840.1.987095.3.579.2.462 Unknown [id number] 2.16.840.1.377907.3.579.2.462 Unknown [id number] 2.16840.1.560391.3.579.2.462 Unknown [id number] 2.16.840.1.806058.3.579.2.462 Unknown [id number] 2.16840.1.239758.3.579.2.462 Unknown [id number] 2.16840.1.471777.3.579.2.462 Unknown [id number] 2.840.1.425840.3.579.2.462 Unknown [id number] 2.16840.1.073011.3.579.2.462 Unknown [id number] 2.16840.1.101525.3.579.2.462 Unknown [id number] 2.16840.1.857778.3.579.2.462 Unknown [id number] 2.16840.1.009339.3.579.2.462 Unknown [id number] 2.840.1.219252.3.579.2.462 Unknown [id number] 2.840.1.692503.3.579.2.462 Unknown [id number] 2.840.1.016523.3.579.2.462 Unknown [id number] 2.840.1.888764.3.579.2.462 Social History Date Type Detail Facility Start: 02-02-2022 End: 06-16-2023 Tobacco smoking status TXIS Unknown if ever smoked [facility] Start: 1955 Sex Assigned At Female [facility] Start: 04-30-2024 Tobacco smoking status NHIS Ex-smoker (finding) [facility] Start: 07-01-2024 End: 07-31-2024 Sex Female (finding) [facility] Start: 09-03-2024 Tobacco smoking status NHIS Smokes tobacco daily (finding) [facility] Start: 09-30-2024 Tobacco smoking status NHIS Current some day smoker [facility] NEGATED: Highlighted row [facility] Work Phone: NEGATED: Highlighted row [facility] Medical Equipment Procedure Code Equipment Code Equipment Origin al Text Equipment Identifier Dates Insertion, vascular access port ([id number]) Vascular port/catheter ([id number] [facility] Start: 03-03-2022 Goals Date Patient Goal Desired Activity /State Mental Status Date Assessment Result Facility 09-03-2024 Cognitive function Awake;Alert;Appropriat e [facility] Work Phone: 06-08-2022 Cognitive function Voice/Name [facility] Work Phone: 03-03-2022 Cognitive function Level Of Cons ciousness Awake;Alert [facility] Work Phone: 03-03-2022 Cognitive function Voice/Name [facility] Work Phone: 02-11-2022 Cognitive function Level Of Cons ciousness Appropriate;Drowsy [facility] Work Phone: 02-11-2022 Cognitive function Voice/Name [facility] Work Phone: 01-30-2022 Cognitive function Level Of Cons ciousness Awake;Alert;Appropriate;Follow s Commands [facility] Work Phone: Clinical Notes 11-29-2022 to 09-11-2024 Note Date & Type Note Facility 09-11-2024 Progress note [facility] 09-11-2024 Progress note Note Date/Time September 11, 2024 2:11pm [facility] [place] [address] OFFICE VISIT Date of Service: 09/11/24 1339 MR#: [id number] Acct: [id number] Name: GABRIELLE HERNANDEZ Rep #: [id number] : 1955 From: Chadwick kellogg MD Age/Sex: 69/F [place] [facility] [place] [facility] [place] Status: Signed HPI Subjective Date of Service 09/11/24 Chief Complaint Lung cancer, recurrent History of Present Illness 68-year-old female, smoker with a past medical history notable for hypertension,chronic renal failure, chronic GERD. January 30, 2022 she developed an episode of transient chest pain was evaluated in the emergency room eventually felt to be related to acid reflux. January 30, 2022 CTA: IMPRESSION: Right upper lobe multifocal spiculated nodularity up to 2.1 cm in size worrisome for malignancy.??. Pulmonary consultation is recommended for consideration for tissue sampling. Centrilobular emphysematous change.? Confluent mediastinal adenopathy worrisome for metastatic disease. Bilateral hilar lymph nodes are subcentimeter and nonspecific.? Consider PET/CT.? No evidence of pulmonary embolism.? Concern for abdominal aneurysmal dilatation at the inferior study margin. February 11, 2022 EBUS: A. EBUS, TBNA, site 4R #1: Rare lymphocytes. Blood. No malignant cells present. B. EBUS, TBNA, site 4R #2: Rare atypical cells present. Abundant mucoid material. C. EBUS, TBNA, site 4R #3: Rare atypical cells present. Abundant mucoid material. D. EBUS, TBNA, site 4R #4: Rare atypical cells present. Abundant mucoid material. E. EBUS, TBNA, site 7 #5: Abundant lymphocytes present. No evidence of malignancy. F. EBUS, TBNA, site 7 #6: Abundant lymphocytes present. No evidence of malignancy. G. EBUS, TBNA, site 7 #7: Benign bronchial epithelial cells and blood. No evidence of malignancy. H. EBUS, TBNA, site 7 #8: Positive for malignant cells consistent with small cell carcinoma. I. EBUS, TBNA, site 7 #9: Negative for malignant cells. Abundant benign bronchial epithelial cells noted. J. EBUS, TBNA, site 4R (cell block): Atypical cells consistent with small cell carcinoma of the lung. See comment. K. EBUS, TBNA, site 7 (cell block): Positive for malig RESULTS: ANTIBODY / CLONE RESULT Block J CK7 (OV-TL12/30) positive, focal CK8 (29gwnqI74) positive, focal CK20 (KS20.8) negative 34BE12 (34BE12) negative CD56 (123C3.D5) positive Chromo (LK2H10) positive, focal Synapto (polyclonal) positive, rare NSE Neuron Specific Enolase positive TTF-1 (8G7G3/1) negative Napsin A (Rabbit Polyclonal) positive, dim CK5-6 (D5 & 1684) negative P40 (BC28) negative Block K CK7 (OV-TL12/30) negative CK8 (73sjroX07) positive, focal CK20 (KS20.8) negative 34BE12 (34BE12) negative CD56 (123C3.D5) positive Chromo (LK2H10) positive, focal Synapto (polyclonal) negative NSE Neuron Specific Enolase positive, rare TTF-1 (8G7G3/1) negative Napsin A (Rabbit Polyclonal) positive, dim CK5-6 (D5 & 1684) negative P40 (BC28) negative INTERPRETATION: J. EBUS, TBA, site 4R: Consistent with small cell carcinoma of lung. K. EBUS, TBA, site 7: Consistent with small cell carcinoma of lung February 15, 2022 PFTs: IMPRESSION: Irreversible mild large airways obstructive ventilatory defect with preserved lung volumes and diffusing capacity. February 23, 2022 PET/CT: Staging IMPRESSION: 1. ABNORMAL EXAMINATION INDICATIVE OF MALIGNANT-VIABLE NEOPLASM. 2. Increased radiopharmaceutical concentration defined in the right upper lung, right upper lobe fulfills quantitative criteria for viable malignant transformation. 3.? Enhanced glucose metabolism manifest in the mediastinal structures fulfills quantitative criteria for viable centrally located thoracic neoplasia. February 28, 2022 brain MRI: Staging: IMPRESSION: 1.? No MRI evidence of intracranial metastatic disease.? 2.? Small barely visible enhancing planum sphenoidale meningioma without postcontrast T1 coronal views is unchanged.? 3.? Chronic white matter ischemic changes in both cerebral hemispheres are unchanged. July 26, 2022 PET/CT end of treatment: IMPRESSION: 1. NEGATIVE EXAMINATION. There is no definitive quantitative scintigraphic evidence of recurrent-viable neoplasm. 2. Enhanced radiopharmaceutical concentration redefined in the right upper posterolateral hemithorax pulmonary parenchyma, right upper lobe does not fulfill quantitative criteria for viable neoplasm (Larisa et al, Journal of Nuclear Medicine 31:1950, 1990). 3. Facilitated radiopharmaceutical concentration subtly remaining in the mediastinal structures does not fulfill quantitative criteria for viable neoplasm (Roopa et al, Journal of Clinical Oncology, 16:2142, 1998). 4. Overall, compared to the prior FDG-PET CT study dated 02/23/2022, there is current absence of defined viable neoplastic disease with an interim quantitative complete metabolic response regarding all persistently defined hypermetabolic foci. September 02, 2022 brain MRI: IMPRESSION: 1. Stable exam. 2. Mild involutional changes and chronic microvascular deep white matter changes. 3. No mass, hemorrhage, or acute territorial infarct. 4. No intracranial evidence of metastatic disease. 5. No evidence of bony metastatic changes. February 02, 2023 CT chest and abdomen: IMPRESSION: 1. Previously noted spiculated right upper lobe lesion not seen at this time. 2. Moderate stranding and cystic changes in right upper lobe likely representing postradiation changes. 3. Mild stranding in the mediastinal and right hilar region without definite adenopathy unchanged. 4. Otherwise no evidence of metastatic disease. 5. No focal acute inflammatory process. 6. Hepatomegaly. 2023 CT chest and abdomen: IMPRESSION: 7.9 mm noncalcified nodule in the right lung apex as described. This was not well-seen on prior examination. Interval improvement in the amount of the bronchiectasis and scarring in the right upper lobe as compared to prior study. Hepatomegaly. October 20, 2023 CT chest and abdomen: IMPRESSION: Enlarging right upper lobe pulmonary nodule worrisome for worsening bronchogenic carcinoma. No CT evidence of metastatic disease. November 07, 2023 PET/CT restaging: IMPRESSION: 1. Redefined increased FDG concentration currently manifest in the right upper lung field, right upper lobe fulfills quantitative criteria for viable neoplasm. Histopathologic analysis is recommended. (Larisa et al, Journal of Nuclear Medicine 43:302 P, 2001). 2. Overall, compared to the previous FDG PET CT study dated 07/26/22, there is interim development of defined viable pulmonary parenchymal neoplastic disease. November 22, 2023 Right lung mass, CT guided core biopsy: Small cell carcinoma March 04, [address]: IMPRESSION: Underlying emphysema with stable nonspecific pleural thickening in the right upper lung field and scarring. A previously noted noncalcified nodule in the right upper lobe has continued to decrease in size compared to previous studies. On the previous study it measured 1.4 cm, on the current study it measures 0.8 cm No organized infiltrate or effusion No suspicious noncalcified mass or nodule No suspicious adenopathy No suspicious solid organ abnormality No free intraperitoneal fluid, air, or suspicious adenopathy Degenerative bony changes March 07, 2024 bone scan: IMPRESSION: 1. The increase in tracer uptake noted in the bilateral shoulders, the cervical spine, right-left knees, the right ankle, the right elbow and wrist is commensurate with degenerative arthritis. 2. There is no definitive typical scintigraphic evidence of diffuse axial skeletal metastatic disease on the current examination. April 29, 2024 CT abdomen and pelvis: IMPRESSION: Scattered sigmoid diverticula. No acute abnormality is seen. May 02, 2024 MRI lumbar spine: IMPRESSION: No evidence for acute fracture or other significant bony pathology. Levoscoliosis and mild degenerative changes Mild bilateral neural foramina narrowing at L4-5 secondary to minor annular bulge with tiny central disc protrusion May 16, 2024 pelvic MRI: IMPRESSION: 1. Limited imaging of the lumbar spine shows degenerative disc disease, greatestat L4-L5. 2. Mild bilateral hip joint degenerative changes are seen. 3. No acute osseous change is evident. June 18, [address]: IMPRESSION: Reported to be attended about size of nodule but is subcentimeter Stable examination except for a new -4-.-7- mm nodule in the anterior aspect of the right upper lobe. Heterogeneous appearance of the thoracic and lumbar vertebrae as described. Correlation with bone scan recommended. Stable hyperplasia of the adrenal glands. June 21, 2024 brain MRI: IMPRESSION: 1. No findings to suggest intracranial metastatic disease. August 26, 2024 CT chest abdomen and pelvis: IMPRESSION: Interval increase in size of the previously seen nodule in the anterior aspect of the right upper lobe as described. There is a new 1 cm nodule adjacent to this nodule in the medial aspect of the right upper lobe. The remainder of the examination is unchanged. September 03, 2024 A. 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 * Note: IHCs were performed: * Positive - Pancytokeratin, CK7 (dot-like), Synaptophysin, and Chromogranin, with Ki67 proliferative index of 100% (as determined by quantitative manual immunohistochemistry). * Negative - CK20, CK5/6, p40, TTF-1, Napsin. * The previous diagnoses of small cell lung carcinoma are noted ([id number],C22-459). The TTF-1 was tested and also negative in the C22-459 specimen. Treatment summary and response: * Carboplatin etoposide March 15, 2022 (cycle 1) Carboplatin etoposide concomitant with radiation April 05, 2022 (cycle 2) 4500 cGy delivered in 30 fractions twice daily to the right upper lobe lung disease, right hilum, and mediastinal disease.? She was treated using a VMAT plan with 6 MV photons. Date of First Treatment: 04/04/2022 Date of Last Treatment: 04/27/2022 Carboplatin etoposide (cycles 3 and 4) April * 12/26/2023 ? 01/05/2024: received 5000 cGy of 6 FFF MV photons in 5 fractions to the SCLC recurrence with an SBRT technique. [facility] Medical History (Updated 09/11/24 @ 14:[address] Chadwick Munson MD) Vitiligo Local recurrence of lung cancer COVID Generalized weakness Low back pain Encounter for chemotherapy management Anemia Tachycardia Thrombocytopenia Constipation Cancer Encounter for education Chronic renal failure Hypertension Regional lymph node metastasis present Wears glasses Wears dentures Post-menopausal Depression Anxiety Alcohol use Injury of head and neck Gastric reflux Emphysema, unspecified Smoker Shortness of breath on exertion Chronic cough Leg cramps History of stress test Cardiology follow-up encounter Chest pain Mild depression Vitamin D deficiency History of alcohol abuse Surgical History History of vascular access device Hx of surgical procedure History of lung biopsy Hx of colonoscopy History of esophagogastroduodenoscopy (EGD) history of left eye surgery Family History Father Alcoholism High cholesterol Hypertension Alzheimer disease Mother Alcoholism Anxiety Cancer unknown primary diagnosis High cholesterol Hypertension Grandfather Alcoholism Grandmother Alcoholism Cancer possibly had cancer but not confirmed Sister Breast cancer, Onset Age: 60 High cholesterol Hypertension Aunt Cancer pancreatic Uncle Lung cancer Social History household members: significant other 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, 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 Smoking Status: Current every day smoker tobacco type: cigarettes Tobacco: How many years used: 50 second hand exposure: Yes alcohol intake: former year quit: 2014 details: quit 7 years ago 2014 substance use type: does not use diet: other caffeine: Yes Type: coffee Number of servings: 3 what type of physical activity do you participate in: walking frequency: 1-2 times per week ROS ROS Narrative No change C August 29, 2024, tolerated CT-guided biopsy with no complication Intake Vital Signs 08/29/24 12:01 09/03/24 08:16 09/11/24 13:40 09/11/24 13:43 Height 5 ft 5 in 5 ft 3 in 5 ft 5 in 5 ft 5 in Weight: 63.56 kg BMI 23.3 BP 128/77 H Blood Pressure Location Lt brachial Position Sitting Respiration 16 Pulse 90 Pulse Source Monitor Temp 96.8 F L Temperature Source Temporal Artery Pulse Oximetry (%) 99 Oxygen Delivery Method room air Intake Is patient in pain?: No Allergies amoxicillin (From Augmentin) Allergy (Intermediate, Verified 09/11/24 13:42) stomach pain clavulanic acid (From Augmentin) Allergy (Intermediate, Verified 09/11/24 13:42) stomach pain Sulfa (Sulfonamide Antibiotics) Allergy (Verified 09/11/24 13:42) Nausea Medications ?Medication ?Instructions ?Recorded ?Confirmed ?Type famotidine 20 mg tablet 20 mg PO QHS 10/26/23 History magnesium citrate 100 mg capsule 100 mg PO DAILY 11/2909/03/24 History atorvastatin 20 mg tablet (Lipitor) 20 mg PO QDAY #60 tabs 02/16/24 09/03/24 Rx Held on 09/03/24. Instructions: Ordered ondansetron 4 mg disintegrating 4 mg PO Q8H PRN PRN Na usea #10 tabs 04/29/24 09/03/24 Rx tablet metoprolol succinate 50 mg 50 mg PO QDAY #90 tabs 02/08/0909/03/24 Rx tablet,extended release 24 hr baclofen 5 mg tablet 5 mg PO 3XD PRN muscle spasm 08/29/24 09/03/24 History oxycodone-acetaminophen 5 mg-325 1 tab PO BID PRN pain 08/29/24 09/03/24 History mg tablet (Percocet) Held on 09/03/24. Instructions: Ordered pregabalin 100 mg capsule (Lyrica) 100 mg PO BID 08/2909/03/24 History oxycodone 5 mg capsule 5 mg PO BID 09/03/24 5 History amitriptyline 25 mg tablet 12.5 mg PO QDAY 09/11/24 History Have you fallen in the past year?: No Central Venous Access Central Venous Access: No Exam Physical Exam Const alert, oriented x3 and no apparent distress Coding Level of Care Code Off vis,est,level 4 Exam Problem Focused Diagnoses Local recurrence of malignant neoplasm of right lung C34.91 Laterality: right Small cell lung cancer, right upper lobe C34.11 Regional lymph node metastasis present C77.9 Assessment and Plan Assessment and Plan (1) Local recurrence of lung cancer: Status: Acute Qualifiers: Laterality: right Qualified Code(s): C34.91 - Malignant neoplasm of unspecified part of right bronchus or lung (2) Small cell lung cancer, right upper lobe: Status: Chronic (3) Regional lymph node metastasis present: Status: Chronic Plan 68 year-old female smoker with limited stage small cell lung cancer; IIIA (T1, N2, M0). Completed combined modality treatment with intent to cure February,-May 2022 Without grade 3 or 4 toxicities. After completion of definitive treatment she continued to smoke. On surveillance following conclusion of definitive treatment imaging July 2023 shows a subtle subcentimeter right upper lobe nodule too small to characterize and within the irradiated field was evidence for surrounding bronchiectasis. A follow-up CT of the chest October 2023 shows the nodule slightly bigger. PET/CT in October 2023 was concerning for locally recurrent disease with no evidence of distant metastases which prompted a CT-guided biopsy that did confirm local recurrence of small cell lung cancer for which she underwent SBRT in December 2023. Follow-up imaging in February 2024 shows a decrease in the size of the nodule inthe right upper lobe and no other evidence to suggest distant metastatic disease. Starting in the fall 2023 experienced increasing low back lumbar and sacral painworse with weightbearing, relief with gabapentin but it makes her drowsy. Bone scan February 2024 showed no changes to suggest metastatic disease to bone. MRIof the lumbar spine and pelvis April 2024 also did not show evidence to suggest metastatic disease to bone. Imaging of the chest June 2024 shows a new right upper lobe subcentimeter nodule that was followed with a short interval CT chest August 2024 and it has increased in size in addition to a new adjacent nodule. CT-guided biopsy confirmed at least locally recurrent small cell lung cancer. Chronic comorbid conditions: COPD, hypertension, chronic renal insufficiency, chronic GERD, active smoker Plan: 1-restaging with PET/CT. Brain MRI in June 2024 showed no evidence of brain metastasis. If the disease is localized only to the right upper lobe will follow-up with radiation oncology whether further SBRT is feasible. 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 Although itwas reviewed by the author prior to finalization, it may still contain incorrectwords, spelling, and punctuation that were not noted when reviewing prior to saving. If a clinically significant typo or inaccurately typed phrase is noted, please notify the author. Clinical Quality Measures Falls Risk Screening/Assistive Devices Have you fallen in the past year?: No 09/11/24 1411 <Electronically signed by Chadwick madsen MD> Date _ Chadwick Munson MD Cosigner Signature: Date (if applicable) CC: Dr. Lynda Alonso MD; Dr. Aly Gupta DO ~ [facility] Work Phone: [phone] Radiology Diagnostic study note [facility] Imaging Services [address] [place] [address] Chest Insp/Exp 2 View MR#: [id number] Acct: [id number] Name: MARYGABRIELLE PEACOCKMATTHEW Rep #: [id number] : 1955 F 69 From: Travon Alarcon MD PCP: Dr. Lynda Alonso MD Status: REG CL I Study:Chest Insp/Exp 2 View Date of Exam: 09/03/24 Exam# [id number] Ordering Dr: Manny Angel i, MD EXAM: Chest AP inspiration expiration. CLINICAL HISTORY: 2 hour post right lung biopsy radiographs. COMPARISON: Prior study done earlier in the day. TECHNIQUE: AP inspiration expiration views. FINDINGS: No evidence of pneumothorax on the 2 hour post right lung biopsy radiographs. RAD/Chest Insp/Exp 2 View IMPRESSION: No evidence of pneumothorax on the 2 hour post right lung biopsy radiographs. Reading Location: [place] [address] CC: Dr. Lynda Alonso MD; Dr. Manny Alarcon MD ~ Community Dietitian: Signed [facility]05-20-2025 Radiology Diagnostic study note [facility] Imaging Services [address] [place] [address] Biopsy/Inj or Needle Placement MR#: [id number] Acct: [id number] Name: TONYAGABRIELLE HEREDIA Rep #: [id number] : 1955 F 69 From: Travon Alarcon MD PCP: Dr. Lynda Alnoso MD Status: REG CL I Study:Biopsy/Inj or Needle Placement Date of Exam: 09/03/24 Exam# [id number] Ordering Dr: Chadwick Munson MD PROCEDURE: BIOPSY/INJ OR NEEDLE PLACEMENT 09/03/2024 REASON FOR EXAM: LUNG NODULE TECHNIQUE: . CT-guided lung biopsy. The procedure as well as the benefits and possible complications includinginfection, bleeding and pneumothorax were explained to the patient. Informed consent was obtained. The patient was in the supine position. Conscious sedation was performed. The patient received 3 mgof Versed and 50 mcg of fentanyl intravenously. Conscious sedation was started at 8:27 a.m. and terminated at 9:12 a.m.. The patient was independently monitored by the department nurse. The tiny nodule in the anterior right upper lobe was localized under CT. The overlying skin was prepped and draped in the usual sterile fashion. Following local anesthetic application, a 20 gauge core biopsyneedle was placed into the nodule. 4 core biopsies were obtained. The patient tolerated the procedure well. One or more dose reduction techniques were used (e.g., Automated exposure control, adjustment of the mA and/or kV according to patient size, use of iterative reconstruction technique). RADIATION DOSE SUMMARY: CTDlvol: 15 mGy DLP: 247.57 mGycm COMPARISON: Prior CT scan of the chest dated August 26, 2024. FINDINGS: Successful CT-guided biopsy of the nodule in the anterior right upper lobe. CT/Biopsy/Inj or Needle Placement IMPRESSION: Successful CT-guided core biopsy of the right upper lobe pulmonary nodule as described. The patienttolerated the procedure well. No immediate complication noted. Reading Location: [place] [address] CC: Dr. Lynda Alonso MD; Dr. Chadwick Munson MD ~ Community Dietitian: Signed [facility]05-20-2025 Radiology Diagnostic study note [facility] Imaging Services [address] [place] [address] Chest Insp/Exp 2 View MR#: [id number] Acct: [id number] Name: GABRIELLE HERNANDEZ Rep #: [id number] : 1955 F 69 From: Travon Alarcon MD PCP: Dr. Lynda Alonso MD Status: REG CL I Study:Chest Insp/Exp 2 View Date of Exam: 09/03/24 Exam# [id number] Ordering Dr: Manny Angel i, MD EXAM: Chest inspiration expiration views following the right lung biopsy. CLINICAL HISTORY: Status post right lung biopsy. COMPARISON: Prior study dated November 27, 2023. TECHNIQUE: Inspiration expiration views were obtained. There is no evidence of pneumothorax. Persistent nodular density in the right upper lobe with increased markings in the surrounding lung suggestive of post biopsy hematoma. FINDINGS: No evidence of pneumothorax following the right lung biopsy. RAD/Chest Insp/Exp 2 View IMPRESSION: No evidence of pneumothorax following the right lung biopsy. Reading Location: [facility] CC: Dr. Lynda Alonso MD; Dr. Manny Alarcon MD ~ Community Dietitian: Signed [facility]05-13-2025 Radiology Diagnostic study note [facility] Imaging Services [address] [place] [id number] Chest AND Abd W/ Contrast MR#: [id number] Acct: [id number] Name: GABRIELLE HERNANDEZ Rep #: [id number] : 1955 F 69 From: Travon Alarcon MD PCP: Dr. Lynda Alonso MD Status: REG CL I Study:CT Chest AND Abd W/ Contrast Date of Ex am: 08/26/24 Exam# [id number] Ordering Dr: Chadwick Munson MD PROCEDURE: CT CHEST AND ABD W/ CONTRAST 08/26/2024 REASON FOR EXAM: LUNG NODULES IV CONTRAST TECHNIQUE: Chest and abdomen CT with intravenous contrast. Coronal and Sagittal reconstruction series were provided. One or more dose reduction techniques were used (e.g., Automated exposure control, adjustment of the mA and/or kV according to patient size, use of iterative reconstruction technique. PATIENT PREPARATION: Per protocol ORAL CONTRAST TYPE: None. CONTRAST: Isovue-300 VOLUME: 100mL RADIATION DOSE SUMMARY: CTDlvol: 10 mGy DLP: 497.58 mGycm COMPARISON: Comparison is made with prior study dated June 18, 2024. FINDINGS: CT CHEST: Hardware: None Lymph nodes: No significant lymphadenopathy is seen. Heart and Vasculature: Normal heart size. No pericardial effusion. Lungs and Airways: Stable emphysematous changes and post radiation scarring in the right lung apex with residual nodular density measuring 4.7 mm. Interval increase in size of the previously seen nodular density in the anterior aspect of the right upper lobe as seen on axial image number 43 it presently measures 10.4 mm. A 2nd nodular density is seen along the inferior medial aspect of the previously mentioned nodular density. This measures 1.1 cm. Pleura: Unremarkable CT ABDOMEN: Liver: Normal size. No mass. Gallbladder: Unremarkable Spleen: Normal size. Pancreas: Normal size without evidence of mass surrounding inflammation or ductal dilation. Adrenals: Stable symmetrical enlargement of the adrenal glands suggestive of adrenal hyperplasia. Kidneys: Normal renal sizes. No hydronephrosis. Bowel: Sigmoid diverticulosis. Lymph nodes: No retroperitoneal lymph nodes. Vasculature: Mild diffuse atherosclerotic calcifications are noted. Peritoneum / Retroperitoneum: Bones: Degenerative changes of the spine. CT/CT Chest AND Abd W/ Contrast IMPRESSION: Interval increase in size of the previously seen nodule in the anterior aspect of the right upper lobe as described. There is a new 1 cm nodule adjacent to this nodule in the medial aspect of the right upper lobe. The remainder of the examination is unchanged. Reading Location: [id number] CC: Dr. Lynda Alonso MD; Dr. 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 Status: REG CLI Location: PSN Date: Sex: F C PSN 6 Minute Walk Test 6 Minute Walk Test 6 Minute Walk Test: 6 Minute Walk Test PSN:6-Minute Walk Test Start: 06/24/24 12:37 Freq: Status: Active Protocol: RESP.[id number] Document 06/24/24 12:38 [facility] (Rec: 06/24/24 12:43 [facility] [id number]) 6 Minute Walk Test Date Performed 06/24/24 Time Performed 12:30 Height 5 ft 4 in Weight: 130 lb Weight in Pounds 130.[address]: Gaye López NP Assistive device None used: Pre-test Oxygen Delivery Room Air Method Pulse Ox (%) 98 Pulse Rate (60-100 87 beats/min) Dyspnea Larissa Scale ( 0 0-10) 1st minute Oxygen Delivery Room Air Method Pulse Ox (%) 96 Pulse Rate (60-100 90 beats/min) Dyspnea Larissa Scale ( 0 0-10) Number of Rests 0 Taken 2nd minute Oxygen Delivery Room Air Method Pulse Ox (%) 95 Pulse Rate (60-100 88 beats/min) Dyspnea Larissa Scale ( 0 0-10) Number of Rests 0 Taken 3rd minute Oxygen Delivery Room Air Method Pulse Ox (%) 98 Pulse Rate (60-100 90 beats/min) Dyspnea Larissa Scale ( 0 0-10) Number of Rests 0 Taken 4th minute Oxygen Delivery Room Air Method Pulse Ox (%) 97 Pulse Rate (60-100 100 beats/min) Dyspnea Larissa Scale ( 1 0-10) Number of Rests 0 Taken 5th minute Oxygen Delivery Room Air Method Pulse Ox (%) 97 Pulse Rate (60-100 101 H beats/min) Dyspnea Larissa Scale ( 1 0-10) Number of Rests 0 Taken 6th minute Oxygen Delivery Room Air Method Pulse Ox (%) 99 Pulse Rate (60-100 100 beats/min) Dyspnea Larissa Scale ( 1 0-10) Number of Rests 0 Taken Post-test Oxygen Delivery Room Air Method Pulse Ox (%) 99 Pulse Rate (60-100 90 beats/min) Dyspnea Larissa Scale ( 0 0-10) Full Laps Walked 17 Partial Lap, Number 24 of Tiles Walked Total Distance 1027 Walked (ft) Interpretation Interpretation: The patient ambulated 1027 feet over the course of 6 minutes beginning on room air without assistive devices. Pretesting oxygen saturation was noted to be 98%on room air. With ambulation, the joycelyn oxygen saturation was 95%. There was no significant exertional oxygen desaturation noted. Recommendations Recommendations: There is no indication for the use of supplemental oxygen at this time. 06/28/24 1207 O> Date _ Corey Damian DO CC: ~ Date Dictated: 06/28/241205 Date Transcribed: 06/28/241205 Community Dietitian: Dr. 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 June 19, 2024 2:51pm Small cell lung cancer, righ t upper lobe chronic June 19, 2024 2:51pm Local recurrence of lung cancer acut e June 24, 2024 12:53pm Local recurrence of lung cancer acut e August 28, 2024 8:49am Smoker chronic August 28, 2024 8:49am Stage 1 mild COPD by GOLD classification chronic August 28, 2024 8 :49am Local recurrence of lung cancer acut e August 29, 2024 11:58am 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 August 29, 2024 1 1:58am Small cell lung cancer, righ t upper lobe chronic August 29, 2024 1 1:58am Local recurrence of lung cancer acut e September 11, 2024 1:34pm 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 September 11, 2024 1 :34pm Small cell lung cancer, righ t upper lobe chronic September 11, 2024 1 :34pm Local recurrence of lung cancer acut e September 24, 2024 2:18pm 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 September 24, 2024 2:18pm Small cell lung cancer, righ t upper lobe chronic September 24, 2024 2:18pm [facility] Work Phone: [phone] Evaluation note* Diagnosis Onset Date Resolution Status Admit Date Local recurrence of lung cancer acut e June 19, 2024 2:51pm 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 June 19, 2024 2:51pm Small cell lung cancer, righ t upper lobe chronic June 19, 2024 2:51pm Local recurrence of lung cancer acut e June 24, 2024 12:53pm Local recurrence of lung cancer acut e August 28, 2024 8:49am Smoker chronic August 28, 2024 8:49am Stage 1 mild COPD by GOLD classification chronic August 28, 2024 8 :49am Local recurrence of lung cancer acut e August 29, 2024 11:58am 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 August 29, 2024 1 1:58am Small cell lung cancer, righ t upper lobe chronic August 29, 2024 1 1:58am Local recurrence of lung cancer acut e September 11, 2024 1:34pm 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 September 11, 2024 1 :34pm Small cell lung cancer, righ t upper lobe chronic September 11, 2024 1 :34pm Local recurrence of lung cancer acut e September 24, 2024 2:18pm Metastasis to lung acute September 152024 2:18pm 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 September 24, 2024 2:18pm Small cell lung cancer, righ t upper lobe chronic September 24, 2024 2:18pm [facility] Work Phone: 1(430) 731-487503-05-2025 Evaluation note* Diagnosis Onset Date Resolution Status Admit Date Local recurrence of lung cancer acut e June 19, 2024 2:51pm 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 June 19, 2024 2:51pm Small cell lung cancer, righ t upper lobe chronic June 19, 2024 2:51pm Local recurrence of lung cancer acut e June 24, 2024 12:53pm Local recurrence of lung cancer acut e August 28, 2024 8:49am Smoker chronic August 28, 2024 8:49am Stage 1 mild COPD by GOLD classification chronic August 28, 2024 8 :49am Local recurrence of lung cancer acut e August 29, 2024 11:58am 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 August 29, 2024 1 1:58am Small cell lung cancer, righ t upper lobe chronic August 29, 2024 1 1:58am Local recurrence of lung cancer acut e September 11, 2024 1:34pm 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 September 11, 2024 1 :34pm Small cell lung cancer, righ t upper lobe chronic September 11, 2024 1 :34pm Local recurrence of lung cancer acut e September 24, 2024 2:18pm Metastasis to lung acute September 152024 2:18pm 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 September 24, 2024 2:18pm Small cell lung cancer, righ t upper lobe chronic September 24, 2024 2:18pm Encounter for insertion of venous access port acute September 27 8:43am Local recurrence of lung cancer acut e September 27, 2024 8:43am Local recurrence of lung cancer acut e September 30, 2024 2:59pm Metastasis to lung acute September 152024 2:59pm 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 Lynda Alonso MD Status: REG CL I Study:CT Chest AND Abd W/ Contrast Date of Ex am: 06/18/24 Exam# [id number] Ordering Dr: Chadwick Munson MD PROCEDURE: CT CHEST AND ABD W/ CONTRAST REASON FOR EXAM: History of small cell lung carcinoma. Completion of chemotherapy. TECHNIQUE: Chest and abdomen CT with intravenous contrast. No oral contrast. CONTRAST: 100 cc of Isovue 370. COMPARISON: Comparison is made with prior CT scan of the chest dated March 04, [address] scan of theabdomen and pelvis dated April 29, 2024. FINDINGS: CT CHEST: Hardware: None. Lymph nodes: No mediastinal, hilar, or axillary lymphadenopathy. Heart and Vasculature: Normal heart size. No pericardial effusion. Thoracic aorta and pulmonary arteries are unremarkable. Lungs and Airways: Stable emphysematous changes and post radiation scarring in the right lung apex with residual nodular density measuring 4.7 mm. There is a new 5.5 mm nodule in the anterior aspect of the right upper lobe as seen on axial image number 49. This was not seen on prior study. Pleura: Stable mild right pleural thickening. Heterogeneous appearance of the thoracic vertebrae especially in the lower segment. Bony metastasisshould be ruled out. CT ABDOMEN: Liver: Unremarkable. Gallbladder: Unremarkable. Spleen: Unremarkable. Pancreas: Unremarkable. Adrenals: Stable symmetric enlargement of the adrenal glands suggestive of adrenal hyperplasia. Kidneys: Unremarkable. Bowel: Sigmoid diverticulosis without evidence of acute sigmoid diverticulitis. Lymph nodes: No suspicious lymph node enlargement at the upper abdomen. Vasculature: Mild diffuse atherosclerotic calcifications are noted. Peritoneum / Retroperitoneum: No ascites or free air at the upper abdomen. Bones: Heterogeneous appearance of the lumbar vertebrae. CT/CT Chest AND Abd W/ Contrast IMPRESSION: Stable examination except for a new 4.7 mm nodule in the anterior aspect of the right upper lobe. Heterogeneous appearance of the thoracic and lumbar vertebrae as described. Correlation with bone scan recommended. Stable hyperplasia of the adrenal glands. One or more dose reduction techniques were used (e.g., Automated exposure control, adjustment of the mA and/or kV according to patient size, use of iterative reconstruction technique). Reading Location: [id number] CC: Dr. Lynda Alonso MD; Dr. 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 June 19, 2024 2:51pm Small cell lung cancer, righ t upper lobe chronic June 19, 2024 2:51pm Local recurrence of lung cancer acut e June 24, 2024 12:53pm Local recurrence of lung cancer acut e August 28, 2024 8:49am Smoker chronic August 28, 2024 8:49am Stage 1 mild COPD by GOLD classification chronic August 28, 2024 8 :49am Local recurrence of lung cancer acut e August 29, 2024 11:58am 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 August 29, 2024 1 1:58am Small cell lung cancer, righ t upper lobe chronic August 29, 2024 1 1:58am [facility] Work Phone: 1(596) 468-495502-04-2025 Evaluation note* Diagnosis Onset Date Resolution Status Admit Date Degenerative disc disease, lumbar acute May 21 8:49am Sacroiliitis acute May 8:49am Local recurrence of lung cancer acut e June 19, 2024 2:51pm 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 June 19, 2024 2:51pm Small cell lung cancer, righ t upper lobe chronic June 19, 2024 2:51pm Local recurrence of lung cancer acut e June 24, 2024 12:53pm Local recurrence of lung cancer acut e August 28, 2024 8:49am Smoker chronic August 28, 2024 8:49am Stage 1 mild COPD by GOLD classification chronic August 28, 2024 8 :49am Local recurrence of lung cancer acut e August 29, 2024 11:58am 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 August 29, 2024 1 1:58am Small cell lung cancer, righ t upper lobe chronic August 29, 2024 1 1:58am Local recurrence of lung cancer acut e September 11, 2024 1:34pm 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 September 11, 2024 1 :34pm Small cell lung cancer, righ t upper lobe chronic September 11, 2024 1 :34pm [facility] [employer] Work Phone: 1([phone]) 176-184701-23-2025 Evaluation note* Diagnosis Onset Date Resolution Status Admit Date Degenerative disc disease, lumbar acute May 09 9:54am Lumbar radiculopathy acute 2024 9:54am Degenerative disc disease, lumbar acute May 21 8:49am Sacroiliitis acute May 8:49am Local recurrence of lung cancer acute June 19, 2024 2:51pm 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 June 19, 2024 2:51pm Small cell lung cancer, righ t upper lobe chronic June 19, 2024 2:51pm Local recurrence of lung cancer acute June 24, 2024 12:53pm [facility] [employer] Work Phone: [phone]) 816-823001-23-2025 Evaluation note* Diagnosis Onset Date Resolution Status Admit Date Degenerative disc disease, lumbar acute May 09 9:54am Lumbar radiculopathy acute 2024 9:54am Degenerative disc disease, lumbar acute May 21 8:49am Sacroiliitis acute May 8:49am Local recurrence of lung cancer acut e June 19, 2024 2:51pm 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 June 19, 2024 2:51pm Small cell lung cancer, righ t upper lobe chronic June 19, 2024 2:51pm Local recurrence of lung cancer acut e June 24, 2024 12:53pm Local recurrence of lung cancer acut e August 28, 2024 8:49am Smoker chronic August 28, 2024 8:49am Stage 1 mild COPD by GOLD classification chronic August 28, 2024 8 :49am Local recurrence of lung cancer acut e August 29, 2024 11:58am 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 August 29, 2024 1 1:58am Small cell lung cancer, righ t upper lobe chronic August 29, 2024 1 1:58am [facility] Work Phone: 1(758) 393-186301-02-2025 Evaluation note* Diagnosis Onset Date Resolution Status Admit Date Degenerative disc disease, lumbar acute April 18 2:28pm Lumbar radiculopathy acute 2024 2:28pm Scoliosis acute April 18 025 2:28pm Degenerative disc disease, lumbar acute May 09 9:54am Lumbar radiculopathy acute 2024 9:54am Degenerative disc disease, lumbar acute May 21 8:49am Sacroiliitis acute May 8:49am Local recurrence of lung cancer acute June 19, 2024 2:51pm 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 June 19, 2024 2:51pm Small cell lung cancer, righ t upper lobe chronic June 19, 2024 2:51pm Local recurrence of lung cancer acute June 24, 2024 12:53pm [facility] Work Phone: 1(160) 704-563111-25-2024 Evaluation note* Diagnosis Onset Date Resolution Status Admit Date Local recurrence of lung cancer acute March 11, 2 024 1:12pm 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 March 11, 2 024 1:12pm Small cell lung cancer, righ t upper lobe chronic March 11, 2 024 1:12pm Degenerative disc disease, lumbar acute April 18 2:28pm Lumbar radiculopathy acute 2024 2:28pm Scoliosis acute April 18, 2 025 2:28pm Degenerative disc disease, lumbar acute May 09 9:54am Lumbar radiculopathy acute 2024 9:54am Degenerative disc disease, lumbar acute May 21 8:49am Sacroiliitis acute May 8:49am Local recurrence of lung cancer acute June 19, 2024 2:51pm 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 June 19, 2024 2:51pm Small cell lung cancer, righ t upper lobe chronic June 19, 2024 2:51pm Local recurrence of lung cancer acute June 24, 2024 12:53pm [facility] Work Phone: 1(209) 995-557208-15-2023 Procedure [facility] Evaluation note* Diagnosis Onset Date Resolution Status Dyspnea acute LAD (lymphadenopathy), mediastinal acute Mass of lung acute LAD (lymphadenopathy), mediastinal acute Mass of lung acute [facility] Work Phone: Evaluation note* Diagnosis Onset Date Resolution Status Dyspnea acute LAD (lymphadenopathy), mediastinal acute Mass of lung acute LAD (lymphadenopathy), mediastinal acute Mass of lung acute Small cell lung cancer, right upper lobe acute [facility] Work Phone: Evaluation note* Diagnosis Onset Date Resolution Status Dyspnea acute Small cell lung cancer, right upper lobe acute Regional lymph node metastasis present acute Small cell lung cancer, right upper lobe acute Encounter for education acut e Regional lymph node metastasis present acute Small cell lung cancer, right upper lobe acute Encounter for adjustment or management of vascular access device acute Small cell lung cancer, right upper lobe acute [facility] Work Phone: Evaluation note* Diagnosis Onset Date Resolution Status Dyspnea acute Small cell lung cancer, right upper lobe acute Regional lymph node metastasis present acute Small cell lung cancer, right upper lobe acute Encounter for education acut e Regional lymph node metastasis present acute Small cell lung cancer, right upper lobe acute Encounter for adjustment or management of vascular access device acute Small cell lung cancer, right upper lobe acute Encounter for adjustment or management of vascular access device acute [facility] Work Phone: Evaluation note* Diagnosis Onset Date Resolution Status Dyspnea acute Small cell lung cancer, right upper lobe acute Regional lymph node metastasis present acute Small cell lung cancer, right upper lobe acute Encounter for education acut e Regional lymph node metastasis present acute Small cell lung cancer, right upper lobe acute Encounter for adjustment or management of vascular access device acute Small cell lung cancer, right upper lobe acute Encounter for adjustment or management of vascular access device acute Regional lymph node metastasis present acute Small cell lung cancer, right upper lobe acute Encounter for adjustment or management of vascular access device acute Gastric reflux acute Small cell lung cancer, right upper lobe acute Constipation acute Regional lymph node metastasis present acute Small cell lung cancer, right upper lobe acute Thrombocytopenia acute [facility] Work Phone: evaluation note* Diagnosis Onset Date Resolution Status Dyspnea acute Small cell lung cancer, right upper lobe acute Regional lymph node metastasis present acute Small cell lung cancer, right upper lobe acute Encounter for education acut e Regional lymph node metastasis present acute Small cell lung cancer, right upper lobe acute Encounter for adjustment or management of vascular access device acute Small cell lung cancer, right upper lobe acute Encounter for adjustment or management of vascular access device acute Regional lymph node metastasis present acute Small cell lung cancer, right upper lobe acute Encounter for adjustment or management of vascular access device acute Gastric reflux acute Small cell lung cancer, right upper lobe acute Constipation acute Regional lymph node metastasis present acute Small cell lung cancer, right upper lobe acute Thrombocytopenia acute Regional lymph node metastasis present acute Small cell lung cancer, 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, 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, 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, right upper lobe acute Regional lymph node metastasis present acute Small cell lung cancer, 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, 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, right upper lobe acute Regional lymph node metastasis present acute Small cell lung cancer, right upper lobe acute Tachycardia acute Thrombocytopenia acute Small cell lung cancer, 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, right upper lobe acute Regional lymph node metastasis present acute Small cell lung cancer, right upper lobe acute Tachycardia acute Thrombocytopenia acute Acute prerenal azotemia acut e Regional lymph node metastasis present acute Small cell lung cancer, right upper lobe acute [facility] Work Phone: Evaluation note* Diagnosis Onset Date Resolution Status Small cell lung cancer, 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, right upper lobe acute Regional lymph node metastasis present chronic Encounter for education acut e Small cell lung cancer, right upper lobe acute Regional lymph node metastasis present chronic Encounter for adjustment or management of vascular access device acute Small cell lung cancer, right upper lobe acute Encounter for adjustment or management of vascular access device acute Small cell lung cancer, right upper lobe acute Regional lymph node metastasis present chronic Encounter for adjustment or management of vascular access device acute Gastric reflux acute Small cell lung cancer, right upper lobe acute Constipation acute Small cell lung cancer, right upper lobe acute Thrombocytopenia acute Regional lymph node metastasis present chronic Small cell lung cancer, right upper lobe acute Regional lymph node metastasis present chronic Small cell lung cancer, 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, 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, 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, right upper lobe acute Regional lymph node metastasis present chronic Small cell lung cancer, 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, 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, right upper lobe acute Tachycardia acute Thrombocytopenia acute Regional lymph node metastasis present chronic Small cell lung cancer, 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, 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, right upper lobe acute Tachycardia acute Thrombocytopenia acute Regional lymph node metastasis present chronic Small cell lung cancer, right upper lobe acute Regional lymph node metastasis present chronic Acute prerenal azotemia reso lved Anemia acute Small cell lung cancer, right upper lobe acute Thrombocytopenia acute Regional lymph node metastasis present chronic Anemia acute Small cell lung cancer, right upper lobe acute Thrombocytopenia acute Regional lymph node metastasis present chronic Anemia acute Encounter for chemotherapy management acute Small cell lung cancer, right upper lobe acute Thrombocytopenia acute Regional lymph node metastasis present chronic Small cell lung cancer, right upper lobe acute Regional lymph node metastasis present chronic Small cell lung cancer, right upper lobe acute [facility] Work Phone: Evaluation note* Diagnosis Onset Date Resolution Status Anemia acute Small cell lung cancer, right upper lobe acute Thrombocytopenia acute Regional lymph node metastasis present chronic Anemia acute Encounter for chemotherapy management acute Small cell lung cancer, right upper lobe acute Thrombocytopenia acute Regional lymph node metastasis present chronic Small cell lung cancer, right upper lobe acute Regional lymph node metastasis present chronic Small cell lung cancer, right upper lobe acute Anemia acute Low back pain acute Small cell lung cancer, right upper lobe acute Regional lymph node metastasis present chronic Anemia acute Generalized weakness acute Small cell lung cancer, right upper lobe acute Regional lymph node metastasis present chronic Small cell lung cancer, right upper lobe acute COPD (chronic obstructive pulmonary disease) chronic Small cell lung cancer, 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, right upper lobe acute Regional lymph node metastasis present chronic Small cell lung cancer, right upper lobe acute [facility] Work Phone: Evaluation note* Diagnosis Onset Date Resolution Status Small cell lung cancer, right upper lobe acute Regional lymph node metastasis present chronic Small cell lung cancer, 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, right upper lobe acute COPD (chronic obstructive pulmonary disease) chronic Tachycardia acute Small cell lung cancer, right upper lobe acute Regional lymph node metastasis present [facility] Work Phone: Evaluation note* Diagnosis Onset Date Resolution Status Small cell lung cancer, 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, right upper lobe acute COPD (chronic obstructive pulmonary disease) chronic Tachycardia acute Small cell lung cancer, right upper lobe acute Regional lymph node metastasis present [facility] Work Phone: Evaluation note* Diagnosis Onset Date Resolution Status Tachycardia acute Small cell lung cancer, right upper lobe acute Regional lymph node metastasis present chronic Small cell lung cancer, right upper lobe acute [facility] Work Phone: Evaluation note* Diagnosis Onset Date Resolution Status Small cell lung cancer, 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, right upper lobe acute Regional lymph node metastasis present chronic Small cell lung cancer, right upper lobe acute Stage 1 mild COPD by GOLD classification acute Chronic diastolic CHF (congestive heart failure) [facility] Work Phone: Evaluation note* Diagnosis Onset Date Resolution Status Small cell lung cancer, 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, right upper lobe acute Regional lymph node metastasis present chronic Small cell lung cancer, right upper lobe acute Stage 1 mild COPD by GOLD classification acute Chronic diastolic CHF (congestive heart failure) chronic Small cell lung cancer, right upper lobe acute [facility] Work Phone: Evaluation note* Diagnosis Onset Date Resolution Status Small cell lung cancer, right upper lobe acute Encounter for adjustment or management of vascular access device acute Small cell lung cancer, 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, right upper lobe acute Regional lymph node metastasis present chronic Tachycardia acute [facility] Work Phone: Evaluation note* Diagnosis Onset Date Resolution Status Encounter for adjustment or management of vascular access device acute Small cell lung cancer, 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, right upper lobe acute Regional lymph node metastasis present chronic Tachycardia acute [facility] Work Phone: Evaluation note* Diagnosis Onset Date Resolution Status Small cell lung cancer, right upper lobe acute Regional lymph node metastasis present chronic Tachycardia acute Small cell lung cancer, right upper lobe acute [facility] Work Phone: Evaluation note* Diagnosis Onset Date Resolution Status Encounter for adjustment or management of vascular access device acute Small cell lung cancer, 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, right upper lobe acute Regional lymph node metastasis present chronic Tachycardia acute Small cell lung cancer, right upper lobe acute [facility] Work Phone: Hospital Discharge instructionsAmbulatory Orders* Cardiology Location: None Selected [facility] Work Phone: Reason for referral (narrative)No reason for referral information availableMilford Square [facility] Work Phone: Chief Complaint and Reason for Visit Chief Complaint CHEST PAIN lung nodule EORDER GERD Reason for Visit Dyspnea LAD (lymphadenopathy), mediastinal Mass of lung LAD (lymphadenopathy), mediastinal Mass of lung Chief Complaint CHEST PAIN lung nodule EORDER GERD DYSPNEA Reason for Visit Dyspnea LAD (lymphadenopathy), mediastinal Mass of lung LAD (lymphadenopathy), mediastinal Mass of lung Chief Complaint CHEST PAIN lung nodule EORDER GERD DYSPNEA DYSPNEA Reason for Visit Dyspnea LAD (lymphadenopathy), mediastinal Mass of lung LAD (lymphadenopathy), mediastinal Mass of lung Chief Complaint CHEST PAIN lung nodule EORDER GERD DYSPNEA DYSPNEA 2 W FU DYSPNEA DYSPNEA Reason for Visit Dyspnea LAD (lymphadenopathy), mediastinal Mass of lung LAD (lymphadenopathy), mediastinal Mass of lung Small cell lung cancer, right upper lobe Chief Complaint CHEST PAIN lung nodule EORDER GERD DYSPNEA DYSPNEA 2 W FU DYSPNEA DYSPNEA MALIGNANT NEOPLASM OF UPPER LOBE STAGING NEW-LUNG CA NEW START-LABS CARBO/ETOP CHEMO ED PORT PLACEMENT Reason for Visit Dyspnea Small cell lung cancer, right upper lobe Regional lymph node metastasis present Small cell lung cancer, right upper lobe Encounter for education Regional lymph node metastasis present Small cell lung cancer, right upper lobe Encounter for adjustment or management of vascular access device Small cell lung cancer, right upper lobe Chief Complaint CHEST PAIN lung nodule EORDER GERD DYSPNEA DYSPNEA 2 W FU DYSPNEA DYSPNEA MALIGNANT NEOPLASM OF UPPER LOBE STAGING NEW-LUNG CA NEW START-LABS CARBO/ETOP CHEMO ED PORT PLACEMENT Post op port - redness/swelling Reason for Visit Dyspnea Small cell lung cancer, right upper lobe Regional lymph node metastasis present Small cell lung cancer, right upper lobe Encounter for education Regional lymph node metastasis present Small cell lung cancer, right upper lobe Encounter for adjustment or management of vascular access device Small cell lung cancer, right upper lobe Encounter for adjustment or management of vascular access device Chief Complaint CHEST PAIN lung nodule EORDER GERD DYSPNEA DYSPNEA 2 W FU DYSPNEA DYSPNEA MALIGNANT NEOPLASM OF UPPER LOBE STAGING NEW-LUNG CA CHEMO ED PORT PLACEMENT Post op port - redness/swelling NEW START-LABS CARBO/ETOP SUTURE REMOVAL consult - lung SCREENING NEW START-LABS CARBO/ETOP TOX CHECK - LABS N/V Reason for Visit Dyspnea Small cell lung cancer, right upper lobe Regional lymph node metastasis present Small cell lung cancer, right upper lobe Encounter for education Regional lymph node metastasis present Small cell lung cancer, right upper lobe Encounter for adjustment or management of vascular access device Small cell lung cancer, right upper lobe Encounter for adjustment or management of vascular access device Regional lymph node metastasis present Small cell lung cancer, right upper lobe Encounter for adjustment or management of vascular access device Gastric reflux Small cell lung cancer, right upper lobe Constipation Regional lymph node metastasis present Small cell lung cancer, right upper lobe Thrombocytopenia Chief Complaint CHEST PAIN lung nodule EORDER GERD DYSPNEA DYSPNEA 2 W FU DYSPNEA DYSPNEA MALIGNANT NEOPLASM OF UPPER LOBE STAGING NEW-LUNG CA CHEMO ED PORT PLACEMENT Post op port - redness/swelling NEW START-LABS CARBO/ETOP SUTURE REMOVAL consult - lung SCREENING TOX CHECK - LABS N/V 3 WKS - LABS - CARBO/ETOP OTV OTV OTV TOX CHECK - LABS OTV OTV TOX CHECK - LABS Tachycardia, unspecified OTV OTV TOX CHECK - LABS Amb Documentation 4 WKS - LABS - CARBO/ETOP [id number] Reason for Visit Dyspnea Small cell lung cancer, right upper lobe Regional lymph node metastasis present Small cell lung cancer, right upper lobe Encounter for education Regional lymph node metastasis present Small cell lung cancer, right upper lobe Encounter for adjustment or management of vascular access device Small cell lung cancer, right upper lobe Encounter for adjustment or management of vascular access device Regional lymph node metastasis present Small cell lung cancer, right upper lobe Encounter for adjustment or management of vascular access device Gastric reflux Small cell lung cancer, right upper lobe Constipation Regional lymph node metastasis present Small cell lung cancer, right upper lobe Thrombocytopenia Regional lymph node metastasis present Small cell lung cancer, 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, 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, 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, right upper lobe Regional lymph node metastasis present Small cell lung cancer, 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, 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, right upper lobe Regional lymph node metastasis present Small cell lung cancer, right upper lobe Tachycardia Thrombocytopenia Small cell lung cancer, 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, right upper lobe Regional lymph node metastasis present Small cell lung cancer, right upper lobe Tachycardia Thrombocytopenia Acute prerenal azotemia Regional lymph node metastasis present Small cell lung cancer, right upper lobe Chief Complaint EORDER GERD DYSPNEA DYSPNEA 2 W FU DYSPNEA DYSPNEA MALIGNANT NEOPLASM OF UPPER LOBE STAGING NEW-LUNG CA CHEMO ED PORT PLACEMENT Post op port - redness/swelling NEW START-LABS CARBO/ETOP SUTURE REMOVAL consult - lung SCREENING TOX CHECK - LABS N/V 3 WKS - LABS - CARBO/ETOP OTV OTV OTV TOX CHECK - LABS OTV OTV TOX CHECK - LABS Tachycardia, unspecified TACHY OTV OTV TOX CHECK - LABS Amb Documentation 4 WKS - LABS - CARBO/ETOP TOX CHECK - LABS TOX CHECK - LABS 3WKS LABS TREATMENT TACHYCARDIA 1WK LABS TOX CHECK [id number] 1mo -lung- Reason for Visit Small cell lung canc er, 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, right upper lobe Regional lymph node metastasis present Encounter for education Small cell lung cancer, right upper lobe Regional lymph node metastasis present Encounter for adjustment or management of vascular access device Small cell lung cancer, right upper lobe Encounter for adjustment or management of vascular access device Small cell lung cancer, right upper lobe Regional lymph node metastasis present Encounter for adjustment or management of vascular access device Gastric reflux Small cell lung cancer, right upper lobe Constipation Small cell lung cancer, right upper lobe Thrombocytopenia Regional lymph node metastasis present Small cell lung cancer, right upper lobe Regional lymph node metastasis present Small cell lung cancer, 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, 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, 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, right upper lobe Regional lymph node metastasis present Small cell lung cancer, 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, 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, right upper lobe Tachycardia Thrombocytopenia Regional lymph node metastasis present Small cell lung cancer, 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, 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, right upper lobe Tachycardia Thrombocytopenia Regional lymph node metastasis present Small cell lung cancer, right upper lobe Regional lymph node metastasis present Acute prerenal azotemia Anemia Small cell lung cancer, right upper lobe Thrombocytopenia Regional lymph node metastasis present Anemia Small cell lung cancer, right upper lobe Thrombocytopenia Regional lymph node metastasis present Anemia Encounter for chemotherapy management Small cell lung cancer, right upper lobe Thrombocytopenia Regional lymph node metastasis present Small cell lung cancer, right upper lobe Regional lymph node metastasis present Small cell lung cancer, right upper lobe Chief Complaint TOX CHECK - LABS 3WKS LABS TREATMENT TACHYCARDIA 1WK LABS TOX CHECK 1mo -lung- 1WK LABS TOX CHECK 1WK LABS small cell lung cancer, eval for metastases 3 M FU review MRI from 06/27 GENERALIZED WEAKNESS/RX HERE 3 MO - LABS - REVIEW PET lung SMALL CELL LUNG CANCER review MRI 09/02 Reason for Visit Anemia Small cell lung cancer, right upper lobe Thrombocytopenia Regional lymph node metastasis present Anemia Encounter for chemotherapy management Small cell lung cancer, right upper lobe Thrombocytopenia Regional lymph node metastasis present Small cell lung cancer, right upper lobe Regional lymph node metastasis present Small cell lung cancer, right upper lobe Anemia Low back pain Small cell lung cancer, right upper lobe Regional lymph node metastasis present Anemia Generalized weakness Small cell lung cancer, right upper lobe Regional lymph node metastasis present Small cell lung cancer, right upper lobe COPD (chronic obstructive pulmonary disease) Small cell lung cancer, 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, right upper lobe Regional lymph node metastasis present Small cell lung cancer, right upper lobe Chief Complaint GENERALIZED WEAKNESS /RX HERE 3 MO - LABS - REVIEW PET SMALL CELL LUNG CANCER review MRI 09/02 Amb Documentation CORCERN FOR FLYING NEW CARDIAC/ONC PT / TACHYCARDIA ARRTHTHMIA 3 MO - LABS lung Amb Documentation Reason for Visit Small cell lung canc er, right upper lobe Regional lymph node metastasis present Small cell lung cancer, 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, right upper lobe COPD (chronic obstructive pulmonary disease) Tachycardia Small cell lung cancer, right upper lobe Regional lymph node metastasis present Chief Complaint SMALL CELL LUNG CANC ER review MRI 09/02 Amb Documentation CORCERN FOR FLYING NEW CARDIAC/ONC PT / TACHYCARDIA ARRTHTHMIA 3 MO - LABS lung Amb Documentation DYSPNEA DYSPNEA Reason for Visit Small cell lung canc er, 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, right upper lobe COPD (chronic obstructive pulmonary disease) Tachycardia Small cell lung cancer, right upper lobe Regional lymph node metastasis present Chief Complaint SMALL CELL LUNG CANC ER review MRI 09/02 Amb Documentation CORCERN FOR FLYING NEW CARDIAC/ONC PT / TACHYCARDIA ARRTHTHMIA 3 MO - LABS lung Amb Documentation DYSPNEA DYSPNEA F/U MRI, SM CELL LUNG CANCER Reason for Visit Small cell lung canc er, 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, right upper lobe COPD (chronic obstructive pulmonary disease) Tachycardia Small cell lung cancer, right upper lobe Regional lymph node metastasis present Chief Complaint NEW CARDIAC/ONC PT / TACHYCARDIA ARRTHTHMIA 3 MO - LABS Amb Documentation DYSPNEA DYSPNEA F/U MRI, SM CELL LUNG CANCER 3 month f/u, review MRI lung CXR Reason for Visit Tachycardia Small cell lung cancer, right upper lobe Regional lymph node metastasis present Small cell lung cancer, right upper lobe Chief Complaint NEW CARDIAC/ONC PT / TACHYCARDIA ARRTHTHMIA 3 MO - LABS Amb Documentation DYSPNEA DYSPNEA F/U MRI, SM CELL LUNG CANCER 3 month f/u, review MRI CXR lung LUNG CANCER Reason for Visit Tachycardia Small cell lung cancer, right upper lobe Regional lymph node metastasis present Small cell lung cancer, right upper lobe Chief Complaint DYSPNEA DYSPNEA F/U MRI, SM CELL LUNG CANCER 3 month f/u, review MRI CXR LUNG CANCER 3 MO - LABS (DOING WITH CT) - REVEIW SCAN 6 M FU lung Malignant neoplasm of upper lobe, right bronchus o Reason for Visit Small cell lung canc er, 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, right upper lobe Regional lymph node metastasis present Small cell lung cancer, right upper lobe Stage 1 mild COPD by GOLD classification Chronic diastolic CHF (congestive heart failure) Chief Complaint DYSPNEA DYSPNEA F/U MRI, SM CELL LUNG CANCER 3 month f/u, review MRI CXR LUNG CANCER 3 MO - LABS (DOING WITH CT) - REVEIW SCAN 6 M FU lung Malignant neoplasm of upper lobe, right bronchus o 3 MONTH F/U, REVIEW MRI Reason for Visit Small cell lung canc er, 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, right upper lobe Regional lymph node metastasis present Small cell lung cancer, right upper lobe Stage 1 mild COPD by GOLD classification Chronic diastolic CHF (congestive heart failure) Small cell lung cancer, right upper lobe Chief Complaint Malignant neoplasm o f upper lobe, right bronchus o 3 MONTH F/U, REVIEW MRI PORT REMOVAL 3 MO - LABS lung Amb Documentation 6 M FU SCREENING Reason for Visit Small cell lung canc er, right upper lobe Encounter for adjustment or management of vascular access device Small cell lung cancer, 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, right upper lobe Regional lymph node metastasis present Tachycardia Chief Complaint Malignant neoplasm o f upper lobe, right bronchus o 3 MONTH F/U, REVIEW MRI PORT REMOVAL 3 MO - LABS lung Amb Documentation 6 M FU SCREENING EORDER Reason for Visit Small cell lung canc er, right upper lobe Encounter for adjustment or management of vascular access device Small cell lung cancer, 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, right upper lobe Regional lymph node metastasis present Tachycardia Chief Complaint PORT REMOVAL 3 MO - LABS lung Amb Documentation 6 M FU SCREENING EORDER ARRYHTHMIA Reason for Visit Encounter for adjust ment or management of vascular access device Small cell lung cancer, 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, right upper lobe Regional lymph node metastasis present Tachycardia Chief Complaint 3 MO - LABS lung Amb Documentation 6 M FU SCREENING EORDER ARRYHTHMIA Malignant neoplasm of upper lobe, right bronchus o RT LUNG CANCER 4 MONTH F/U, REVIEW MRI Reason for Visit Small cell lung canc er, right upper lobe Regional lymph node metastasis present Tachycardia Small cell lung cancer, right upper lobe Chief Complaint PORT REMOVAL 3 MO - LABS lung Amb Documentation 6 M FU SCREENING EORDER ARRYHTHMIA Malignant neoplasm of upper lobe, right bronchus o RT LUNG CANCER 4 MONTH F/U, REVIEW MRI Reason for Visit Encounter for adjust ment or management of vascular access device Small cell lung cancer, 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, right upper lobe Regional lymph node metastasis present Tachycardia Small cell lung cancer, right upper lobe Chief Complaint Admit Date RESTAGING SCLC *IV ONLY*, HYPERLIPIDEMIA March 04, 2024 6:49am RESTAGING SCLC *IV ONLY*, HYPERLIPIDEMIA March 04, 2024 8:07am Amb Documentation March 05, 2024 8:34am RESTAGING LUNG CANCER March 07 8:45am 3 MO - LABS - REVIEW SCANS February 1:12pm lung March 11, 2024 1:15pm LEG WEAKNESS RX HERE April 15, 2024 11:00am LUMBAR SPINE April 18, 2024 2: 28pm Room 2 April 18, 2024 2: 47pm B/L HIP PAIN April 24, 2024 1: 37pm E-ORDER April 25, 2024 8: 03am general illness April 28, 2024 1 2:15pm back April 29, 2024 8 :57am back April 30, 2024 7 :13am LUMBAR RAD May 02, 2024 7 :25am LUMBAR SPINE May 09, 2024 9 :54am BI LAT HIP PAIN May 16, 2024 1 2:35pm EORDER- THYROID May 21, 2024 8 :22am LUMBAR SPINE May 21, 2024 8 :49am F/U SCLC *IV ONLY* June 18, 2024 7:48 am 3 MO - NO LABS - REVIEW SCANS June 19, 2024 2:51pm BRAIN METS June 21, 2024 7:24 am COPD June 24, 2024 12: 21pm REVIEW MRI June 24, 2024 12: 53pm COPD June 28, 2024 12: 06pm Reason for Visit Admit Date Local recurrence of lung cancer March 11, 2024 1:12pm Regional lymph node metastasis present N ovember 2023 1:12pm Small cell lung cancer, right upper lobe March 11, 2024 1:12pm Degenerative disc disease, lumbar Januar y 2024 2:28pm Lumbar radiculopathy April 18, 2024 2 :28pm Scoliosis April 18, 2024 2: 28pm Degenerative disc disease, lumbar Januar y 2024 9:54am Lumbar radiculopathy May 09, 2024 9:54am Degenerative disc disease, lumbar Februa 2024 8:49am Sacroiliitis May 21, 2024 8 :49am Local recurrence of lung cancer June 2:51pm Regional lymph node metastasis present M arch 2024 2:51pm Small cell lung cancer, right upper lobe June 19, 2024 2:51pm Local recurrence of lung cancer June 242024 12:53pm Chief Complaint Admit Date RESTAGING LUNG CANCER March 07 8:45am 3 MO - LABS - REVIEW SCANS February 1:12pm lung March 11, 2024 1:15pm LEG WEAKNESS RX HERE April 15, 2024 11:00am LUMBAR SPINE April 18, 2024 2: 28pm Room 2 April 18, 2024 2: 47pm B/L HIP PAIN April 24, 2024 1: 37pm E-ORDER April 25, 2024 8: 03am general illness April 28, 2024 1 2:15pm back April 29, 2024 8 :57am back April 30, 2024 7 :13am LUMBAR RAD May 02, 2024 7 :25am LUMBAR SPINE May 09, 2024 9 :54am BI LAT HIP PAIN May 16, 2024 1 2:35pm EORDER- THYROID May 21, 2024 8 :22am LUMBAR SPINE May 21, 2024 8 :49am F/U SCLC *IV ONLY* June 18, 2024 7:48 am 3 MO - NO LABS - REVIEW SCANS June 19, 2024 2:51pm BRAIN METS June 21, 2024 7:24 am COPD June 24, 2024 12: 21pm REVIEW MRI June 24, 2024 12: 53pm COPD June 28, 2024 12: 06pm Chief Complaint Admit Date LEG WEAKNESS RX HERE April 15, 2024 11:00am LUMBAR SPINE April 18, 2024 2: 28pm Room 2 April 18, 2024 2: 47pm B/L HIP PAIN April 24, 2024 1: 37pm E-ORDER April 25, 2024 8: 03am general illness April 28, 2024 1 2:15pm back April 29, 2024 8 :57am back April 30, 2024 7 :13am LUMBAR RAD May 02, 2024 7 :25am LUMBAR SPINE May 09, 2024 9 :54am BI LAT HIP PAIN May 16, 2024 1 2:35pm EORDER- THYROID May 21, 2024 8 :22am LUMBAR SPINE May 21, 2024 8 :49am F/U SCLC *IV ONLY* June 18, 2024 7:48 am 3 MO - NO LABS - REVIEW SCANS June 19, 2024 2:51pm BRAIN METS June 21, 2024 7:24 am COPD June 24, 2024 12: 21pm REVIEW MRI June 24, 2024 12: 53pm COPD June 28, 2024 12: 06pm Reason for Visit Admit Date Degenerative disc disease, lumbar Januar y 2024 2:28pm Lumbar radiculopathy April 18, 2024 2 :28pm Scoliosis April 18, 2024 2: 28pm Degenerative disc disease, lumbar Januar y 2024 9:54am Lumbar radiculopathy May 09, 2024 9:54am Degenerative disc disease, lumbar Februa 2024 8:49am Sacroiliitis May 21, 2024 8 :49am Local recurrence of lung cancer June 2:51pm Regional lymph node metastasis present M arch 2024 2:51pm Small cell lung cancer, right upper lobe June 19, 2024 2:51pm Local recurrence of lung cancer June 242024 12:53pm Chief Complaint Admit Date back April 30, 2024 7 :13am LUMBAR RAD May 02, 2024 7 :25am LUMBAR SPINE May 09, 2024 9 :54am BI LAT HIP PAIN May 16, 2024 1 2:35pm EORDER- THYROID May 21, 2024 8 :22am LUMBAR SPINE May 21, 2024 8 :49am F/U SCLC *IV ONLY* June 18, 2024 7:48 am 3 MO - NO LABS - REVIEW SCANS June 19, 2024 2:51pm BRAIN METS June 21, 2024 7:24 am COPD June 24, 2024 12: 21pm REVIEW MRI June 24, 2024 12: 53pm COPD June 28, 2024 12: 06pm LUNG CANCER August 26, 2024 7:48a m 6 M FU August 28, 2024 8:49a m Reason for Visit Admit Date Degenerative disc disease, lumbar Januar y 2024 9:54am Lumbar radiculopathy May 09, 2024 9:54am Degenerative disc disease, lumbar Februa 2024 8:49am Sacroiliitis May 21, 2024 8 :49am Local recurrence of lung cancer June 2:51pm Regional lymph node metastasis present M arch 2024 2:51pm Small cell lung cancer, right upper lobe June 19, 2024 2:51pm Local recurrence of lung cancer June 242024 12:53pm Chief Complaint Admit Date LUMBAR RAD May 02, 2024 7 :25am LUMBAR SPINE May 09, 2024 9 :54am BI LAT HIP PAIN May 16, 2024 1 2:35pm EORDER- THYROID May 21, 2024 8 :22am LUMBAR SPINE May 21, 2024 8 :49am F/U SCLC *IV ONLY* June 18, 2024 7:48 am 3 MO - NO LABS - REVIEW SCANS June 19, 2024 2:51pm BRAIN METS June 21, 2024 7:24 am COPD June 24, 2024 12: 21pm REVIEW MRI June 24, 2024 12: 53pm COPD June 28, 2024 12: 06pm LUNG CANCER August 26, 2024 7:48a m 6 M FU August 28, 2024 8:49a m REVIEW CT SCAN August 29, 2024 11:58 am Reason for Visit Admit Date Degenerative disc disease, lumbar Januar y 2024 9:54am Lumbar radiculopathy May 09, 2024 9:54am Degenerative disc disease, lumbar Februa 2024 8:49am Sacroiliitis May 21, 2024 8 :49am Local recurrence of lung cancer June 2:51pm Regional lymph node metastasis present M arch 2024 2:51pm Small cell lung cancer, right upper lobe June 19, 2024 2:51pm Local recurrence of lung cancer June 242024 12:53pm Local recurrence of lung cancer August 8:49am Smoker August 28, 2024 8:49a m Stage 1 mild COPD by GOLD classification August 28, 2024 8:49am Local recurrence of lung cancer August 11:58am Regional lymph node metastasis present M 2024 11:58am Small cell lung cancer, right upper lobe August 29, 2024 11:58am Chief Complaint Admit Date BI LAT HIP PAIN May 16, 2024 1 2:35pm EORDER- THYROID May 21, 2024 8 :22am LUMBAR SPINE May 21, 2024 8 :49am F/U SCLC *IV ONLY* June 18, 2024 7:48 am 3 MO - NO LABS - REVIEW SCANS June 19, 2024 2:51pm BRAIN METS June 21, 2024 7:24 am COPD June 24, 2024 12: 21pm REVIEW MRI June 24, 2024 12: 53pm COPD June 28, 2024 12: 06pm LUNG CANCER August 26, 2024 7:48a m 6 M FU August 28, 2024 8:49a m REVIEW CT SCAN August 29, 2024 11:58 am LUNG NODULE September 03, 2024 7:37a m Reason for Visit Admit Date Degenerative disc disease, lumbar Februa 2024 8:49am Sacroiliitis May 21, 2024 8 :49am Local recurrence of lung cancer June 2:51pm Regional lymph node metastasis present M arch 2024 2:51pm Small cell lung cancer, right upper lobe June 19, 2024 2:51pm Local recurrence of lung cancer June 242024 12:53pm Local recurrence of lung cancer August 8:49am Smoker August 28, 2024 8:49a m Stage 1 mild COPD by GOLD classification August 28, 2024 8:49am Local recurrence of lung cancer August 11:58am Regional lymph node metastasis present M ay 2024 11:58am Small cell lung cancer, right upper lobe August 29, 2024 11:58am Chief Complaint Admit Date BI LAT HIP PAIN May 16, 2024 1 2:35pm EORDER- THYROID May 21, 2024 8 :22am LUMBAR SPINE May 21, 2024 8 :49am F/U SCLC *IV ONLY* June 18, 2024 7:48 am 3 MO - NO LABS - REVIEW SCANS June 19, 2024 2:51pm BRAIN METS June 21, 2024 7:24 am COPD June 24, 2024 12: 21pm REVIEW MRI June 24, 2024 12: 53pm COPD June 28, 2024 12: 06pm LUNG CANCER August 26, 2024 7:48a m 6 M FU August 28, 2024 8:49a m REVIEW CT SCAN August 29, 2024 11:58 am LUNG NODULE September 03, 2024 7:37a m EORDER September 11, 2024 12:55 pm REVIEW BX RESULTS September 11, 2024 1:34p m Reason for Visit Admit Date Degenerative disc disease, lumbar Februa 2024 8:49am Sacroiliitis May 21, 2024 8 :49am Local recurrence of lung cancer June 2:51pm Regional lymph node metastasis present M arch 2024 2:51pm Small cell lung cancer, right upper lobe June 19, 2024 2:51pm Local recurrence of lung cancer June 242024 12:53pm Local recurrence of lung cancer August 8:49am Smoker August 28, 2024 8:49a m Stage 1 mild COPD by GOLD classification August 28, 2024 8:49am Local recurrence of lung cancer August 11:58am Regional lymph node metastasis present M ay 2024 11:58am Small cell lung cancer, right upper lobe August 29, 2024 11:58am Local recurrence of lung cancer August 1:34pm Regional lymph node metastasis present M ay 2024 1:34pm Small cell lung cancer, right upper lobe September 11, 2024 1:34pm Chief Complaint Admit Date EORDER- THYROID May 21, 2024 8 :22am LUMBAR SPINE May 21, 2024 8 :49am F/U SCLC *IV ONLY* June 18, 2024 7:48 am 3 MO - NO LABS - REVIEW SCANS June 19, 2024 2:51pm BRAIN METS June 21, 2024 7:24 am COPD June 24, 2024 12: 21pm REVIEW MRI June 24, 2024 12: 53pm COPD June 28, 2024 12: 06pm LUNG CANCER August 26, 2024 7:48a m 6 M FU August 28, 2024 8:49a m REVIEW CT SCAN August 29, 2024 11:58 am LUNG NODULE September 03, 2024 7:37a m EORDER September 11, 2024 12:55 pm REVIEW BX RESULTS September 11, 2024 1:34p m Chief Complaint Admit Date F/U SCLC *IV ONLY* June 18, 2024 7:48 am 3 MO - NO LABS - REVIEW SCANS June 19, 2024 2:51pm BRAIN METS June 21, 2024 7:24 am COPD June 24, 2024 12: 21pm REVIEW MRI June 24, 2024 12: 53pm COPD June 28, 2024 12: 06pm LUNG CANCER August 26, 2024 7:48a m 6 M FU August 28, 2024 8:49a m REVIEW CT SCAN August 29, 2024 11:58 am LUNG NODULE September 03, 2024 7:37a m EORDER September 11, 2024 12:55 pm REVIEW BX RESULTS September 11, 2024 1:34p m lung September 17, 2024 9:00a m REVIEW PET RESULTS September 24, 2024 2:18 pm Reason for Visit Admit Date Local recurrence of lung cancer June 2:51pm Regional lymph node metastasis present M arch 2024 2:51pm Small cell lung cancer, right upper lobe June 19, 2024 2:51pm Local recurrence of lung cancer June 242024 12:53pm Local recurrence of lung cancer August 8:49am Smoker August 28, 2024 8:49a m Stage 1 mild COPD by GOLD classification August 28, 2024 8:49am Local recurrence of lung cancer August 11:58am Regional lymph node metastasis present M ay 2024 11:58am Small cell lung cancer, right upper lobe August 29, 2024 11:58am Local recurrence of lung cancer August 1:34pm Regional lymph node metastasis present M ay 2024 1:34pm Small cell lung cancer, right upper lobe September 11, 2024 1:34pm Local recurrence of lung cancer September 2:18pm Regional lymph node metastasis present J une 2024 2:18pm Small cell lung cancer, right upper lobe September 24, 2024 2:18pm Chief Complaint Admit Date F/U SCLC *IV ONLY* June 18, 2024 7:48 am 3 MO - NO LABS - REVIEW SCANS June 19, 2024 2:51pm BRAIN METS June 21, 2024 7:24 am COPD June 24, 2024 12: 21pm REVIEW MRI June 24, 2024 12: 53pm COPD June 28, 2024 12: 06pm LUNG CANCER August 26, 2024 7:48a m 6 M FU August 28, 2024 8:49a m REVIEW CT SCAN August 29, 2024 11:58 am LUNG NODULE September 03, 2024 7:37a m EORDER September 11, 2024 12:55 pm REVIEW BX RESULTS September 11, 2024 1:34p m lung September 17, 2024 9:00a m REVIEW PET RESULTS September 24, 2024 2:18 pm PORT PLACEMENT September 27, 2024 8:43 am Reason for Visit Admit Date Local recurrence of lung cancer June 2:51pm Regional lymph node metastasis present M arch 2024 2:51pm Small cell lung cancer, right upper lobe June 19, 2024 2:51pm Local recurrence of lung cancer June 242024 12:53pm Local recurrence of lung cancer August 8:49am Smoker August 28, 2024 8:49a m Stage 1 mild COPD by GOLD classification August 28, 2024 8:49am Local recurrence of lung cancer August 11:58am Regional lymph node metastasis present M ay 2024 11:58am Small cell lung cancer, right upper lobe August 29, 2024 11:58am Local recurrence of lung cancer August 1:34pm Regional lymph node metastasis present M ay 2024 1:34pm Small cell lung cancer, right upper lobe September 11, 2024 1:34pm Local recurrence of lung cancer September 2:18pm Metastasis to lung September 24, 2024 2:18 pm Regional lymph node metastasis present J une 2024 2:18pm Small cell lung cancer, right upper lobe September 24, 2024 2:18pm Chief Complaint Admit Date F/U SCLC *IV ONLY* June 18, 2024 7:48 am 3 MO - NO LABS - REVIEW SCANS June 19, 2024 2:51pm BRAIN METS June 21, 2024 7:24 am COPD June 24, 2024 12: 21pm REVIEW MRI June 24, 2024 12: 53pm COPD June 28, 2024 12: 06pm LUNG CANCER August 26, 2024 7:48a m 6 M FU August 28, 2024 8:49a m REVIEW CT SCAN August 29, 2024 11:58 am LUNG NODULE September 03, 2024 7:37a m EORDER September 11, 2024 12:55 pm REVIEW BX RESULTS September 11, 2024 1:34p m lung September 17, 2024 9:00a m REVIEW PET RESULTS September 24, 2024 2:18 pm PORT PLACEMENT September 27, 2024 8:43 am CHEMO ED September 30, 2024 2:59 pm Reason for Visit Admit Date Local recurrence of lung cancer June 2:51pm Regional lymph node metastasis present M arch 2024 2:51pm Small cell lung cancer, right upper lobe June 19, 2024 2:51pm Local recurrence of lung cancer June 242024 12:53pm Local recurrence of lung cancer August 8:49am Smoker August 28, 2024 8:49a m Stage 1 mild COPD by GOLD classification August 28, 2024 8:49am Local recurrence of lung cancer August 11:58am Regional lymph node metastasis present M ay 2024 11:58am Small cell lung cancer, right upper lobe August 29, 2024 11:58am Local recurrence of lung cancer August 1:34pm Regional lymph node metastasis present M ay 2024 1:34pm Small cell lung cancer, right upper lobe September 11, 2024 1:34pm Local recurrence of lung cancer September 2:18pm Metastasis to lung September 24, 2024 2:18 pm Regional lymph node metastasis present J [facility] 2024 2:18pm Small cell lung cancer, right upper lobe September 24, 2024 2:18pm Encounter for insertion of venous access port September 27, 2024 8:43am Local recurrence of lung cancer September 8:43am Local recurrence of lung cancer September 2:59pm Metastasis to lung September 30, 2024 2:59 pm Regional lymph node metastasis present J [facility] 2024 2:59pm Small cell lung cancer, right upper lobe September 30, 2024 2:59pm Family History No Family History Records Found Relationship Condition Age at Onset Recorded Date/T mar[place] Not Specified High blood cholesterol Unknown Alcoholism Unknown Anxiety Unknown Malignant neoplasm of breast Unknown Hypertension Unknown Relationship Condition Age at Onset Recorded Date/T [place] father Alcoholism Unknown High blood cholesterol Unknown Hypertension Unknown Alzheimer's disease Unknown mother Alcoholism Unknown Anxiety Unknown Malignant neoplasm Unknown grandfather Alcoholism Unknown grandmother Alcoholism Unknown sister Malignant neoplasm of breast 60 aunt Malignant neoplasm Unknown uncle Malignant neoplasm of lung Unknown Advance Directives No Advanced Directives Records Found Advance Directive Response Recorded Date/ Time Living Will No January 30 9:30pm Power of Dice Maker No January 30, 2022 9:30pm Advance Directive Response Recorded Date/ Time Living Will No January 30 8:30pm Power of Dice Maker No January 30, 2022 8:30pm Advance Directive Response Recorded Date/ Time Living Will No March 03, 2 022 8:27am Power of Dice Maker No March 03, 2022 8:27am Advance Directive Response Recorded Date/ Time Advance Directives on File No Decem 2021 1:35pm Advance Directives No March 17, 2022 1:35pm Living Will No March 30, 2 022 12:07pm Power of Dice Maker No March 30, 2022 12:07pm Advance Directive Response Recorded Date/ Time Advance Directives on File No Slick frank 2022 10:15am Advance Directives No May 03, 2022 10:15am Living Will No May 03 10:15am Power of Dice Maker No May 03, 2022 10:15am Advance Directive Response Recorded Date/ Time Advance Directives on File No Sandra 2022 12:06pm Advance Directives No May 26, 2022 12:06pm Living Will No May 26 12:06pm Power of Dice Maker No May 26, 2022 12:06pm Advance Directive Response Recorded Date/ Time Advance Directives on File No Sandra 2022 1:06pm Advance Directives No May 26, 2022 1:06pm Living Will No May 26 1:06pm Power of Dice Maker No May 26, 2022 1:06pm Advance Directive Response Recorded Date/ Time Living Will No May 26 1:06pm Power of Dice Maker No May 26, 2022 1:06pm Advance Directives on File No Sandra 2022 1:06pm Advance Directives No May 26, 2022 1:06pm Living Will pt LWBS April 28 2:09pm Power of Dice Maker PT LWBS April 28, 2024 2:09pm Living Will No April 29 9:57am Power of Dice Maker No April 29, 2024 9:57am Living Will No April 30 8:21am Power of Dice Maker No April 30, 2024 8:21am Advance Directive Response Recorded Date/ Time Living Will No May 26 1:06pm Do you have a Healthcare Power of Dice Maker? No May 26, 2022 1:06pm Advance Directives on File No [email or web address] 1:06pm Advance Directives No May 26, 2022 1:06pm Living Will pt LWBS April 28 2:09pm Do you have a Healthcare Power of Dice Maker? PT L WBS April 28, 2024 2:09pm Living Will No April 29 9:57am Do you have a Healthcare Power of Dice Maker? No April 29, 2024 9:57am Living Will No April 30 8:21am Do you have a Healthcare Power of Dice Maker? No April 30, 2024 8:21am Advance Directive Response Recorded Date/ Time Living Will pt LWBS April 28 2:09pm Do you have a Healthcare Power of Dice Maker? PT L WBS April 28, 2024 2:09pm Living Will No April 29 9:57am Do you have a Healthcare Power of Dice Maker? No April 29, 2024 9:57am Living Will No April 30 8:21am Do you have a Healthcare Power of Dice Maker? No April 30, 2024 8:21am Living Will No May 26 1:06pm Do you have a Healthcare Power of Dice Maker? No May 26, 2022 1:06pm Advance Directives No May 26, 2022 1:06pm Advance Directive Response Recorded Date/ Time Living Will No May 26 1:06pm Do you have a Healthcare Power of Dice Maker? No May 26, 2022 1:06pm Living Will No April 30 8:21am Do you have a Healthcare Power of Dice Maker? No April 30, 2024 8:21am Advance Directives No May 26, 2022 1:06pm Advance Directive Response Recorded Date/ Time Living Will No May 26 1:06pm Do you have a Healthcare Power of Dice Maker? No May 26, 2022 1:06pm Advance Directives No May 26, 2022 1:06pm Advance Directive Response Recorded Date/ Time Living Will No May 26 1:06pm Do you have a Healthcare Power of Dice Maker? No May 26, 2022 1:06pm Advance Directives on File No 2022 1:06pm Advance Directives No May 26, 2022 1:06pm Summary Purpose Additional Source Comments Care Teams (unrecognized sec tion and content) Team Status: Active Member Role Status Dates Dr. Gabrielle Goldstein MD Family Provider Active Lara Bobo BORE MILL OPERATOR, BORE MILL OPERATOR-C Primary Care Provider Activ e Team Status: Inactive Member Role Status Dates Lara Bobo BORE MILL OPERATOR, BORE MILL OPERATOR-C Primary Care Provider, Refe rring Provider Active Dr. Jarred Jones MD Attending Provider Active Team Status: Active Member Role Status Dates Lara Bobo BORE MILL OPERATOR, BORE MILL OPERATOR-C Primary Care Provider, Refe rring Provider Active Dr. Jarred Jones MD Attending Provider, Other Provid er Active Team Status: Active Member Role Status Dates Lara Bobo BORE MILL OPERATOR, BORE MILL OPERATOR-C Primary Care Provider Activ e Dr. Jarred Jones MD Referring Provider, Other Provid er Active Dr. Corey Damian DO Attending Provider Active Team Status: Inactive Member Role Status Dates Lara Bobo BORE MILL OPERATOR, BORE MILL OPERATOR-C Primary Care Provider, Refe rring Provider Active Dr. Chadwick Munson MD Attending Provider Active Team Status: Inactive Member Role Status Dates Lara Bobo BORE MILL OPERATOR, BORE MILL OPERATOR-C Primary Care Provider, Refe rring Provider Active Shavonne Blanchard BORE MILL OPERATOR, BORE MILL OPERATOR-C Attending Provider Active Team Status: Inactive Member Role Status Dates Lara Bobo BORE MILL OPERATOR, BORE MILL OPERATOR-C Primary Care Provider, Refe rring Provider Active Dr. Sugar Ramírez MD Attending Provider Active Team Status: Inactive Member Role Status Dates Lara Bobo BORE MILL OPERATOR, BORE MILL OPERATOR-C Primary Care Provider, Refe rring Provider Active Dr. Aly Gupta DO Attending Provider Active Team Status: Active Member Role Status Osman Bobo BORE MILL OPERATOR, BORE MILL OPERATOR-C Primary Care Provider Activ e Dr. Sugar Ramírez MD Attending Provider, Other Pro vider Active Team Status: Inactive Member Role Status Dates Lara Bobo BORE MILL OPERATOR, BORE MILL OPERATOR-C Primary Care Provider, Refe rring Provider Active Nurse Visit Active Dr. Sugar Ramírez MD Attending Provider Active Team Status: Active Member Role Status Osman Bobo BORE MILL OPERATOR, BORE MILL OPERATOR-C Primary Care Provider Activ e Dr. Aly Gupta DO Attending Provider, Referring P rovider Active Team Status: Inactive Member Role Status Osman Bobo BORE MILL OPERATOR, BORE MILL OPERATOR-C Primary Care Provider Activ e Dr. Aly Gupta DO Attending Provider, Referring P rovider Active Team Status: Inactive Member Role Status Dates Lara Bobo BORE MILL OPERATOR, BORE MILL OPERATOR-C Primary Care Provider Activ e Dr. Chava Magdaleno MD Active Dr. Aly Gupta DO Attending Provider, Referring P rovider Active Team Status: Active Member Role Status Dates Lara Bobo BORE MILL OPERATOR, BORE MILL OPERATOR-C Primary Care Provider Activ e Dr. Aly Gupat DO Attending Provider Active Team Status: Inactive Member Role Status Dates Lara Bobo BORE MILL OPERATOR, BORE MILL OPERATOR-C Primary Care Provider Activ e Dr. Cesar Barbour DO Attending Provider, Karine dewitt Active Team Status: Inactive Member Role Status Dates Lara Bobo BORE MILL OPERATOR, BORE MILL OPERATOR-C Primary Care Provider, Attending Provider, Referring Provider Active Team Status: Inactive Member Role Status Dates Lara Bobo BORE MILL OPERATOR, BORE MILL OPERATOR-C Primary Care Provider Activ e Dr. Jarred Jones MD Attending Provider, Referring Pr ovider Active Team Status: Active Member Role Status Dates Lara Bobo BORE MILL OPERATOR, BORE MILL OPERATOR-C Primary Care Provider Activ e Dr. Chadwick Munson MD Attending Provider, Referrin g Provider Active Team Status: Inactive Member Role Status Dates Lara Bobo BORE MILL OPERATOR, BORE MILL OPERATOR-C Primary Care Provider Activ e Dr. Sugar Ramírez MD Attending Provider Active Team Status: Inactive Member Role Status Dates Lara Bobo BORE MILL OPERATOR, BORE MILL OPERATOR-C Primary Care Provider, Atte nding Provider Active Team Status: Inactive Member Role Status Dates Lara Bobo BORE MILL OPERATOR, BORE MILL OPERATOR-C Primary Care Provider Activ e Shavonne Santo BORE MILL OPERATOR, BORE MILL OPERATOR-C Attending Provider, Referring Provider Active Team Status: Active Member Role Status Dates Lara Bobo BORE MILL OPERATOR, BORE MILL OPERATOR-C Primary Care Provider Activ e Dr. Chase [place] MD Attending Provider Active Shavonne Santo BORE MILL OPERATOR, BORE MILL OPERATOR-C Referring Provider Active Team Status: Inactive Member Role Status Dates Lara Bobo BORE MILL OPERATOR, BORE MILL OPERATOR-C Primary Care Provider, Refe rring Provider Active Gaye López BORE MILL OPERATOR, BORE MILL OPERATOR-C Attending Provider Active Team Status: Inactive Member Role Status Dates Lara Bobo BORE MILL OPERATOR, BORE MILL OPERATOR-C Primary Care Provider Activ e Dr. Aly Gupta DO Attending Provider Active Team Status: Active Member Role Status Dates Lara Bobo BORE MILL OPERATOR, BORE MILL OPERATOR-C Primary Care Provider Activ e Monica Salcido Attending Provider Active Team Status: Inactive Member Role Status Dates Lara Bobo BORE MILL OPERATOR, BORE MILL OPERATOR-C Primary Care Provider, Refe rring Provider Active Dr. Gabriele Guerrero MD Attending Provider Active Team Status: Active Member Role Status Osman Bobo BORE MILL OPERATOR, BORE MILL OPERATOR-C Primary Care Provider Activ e Dr. Gabriele Guerrero MD Attending Provider Active Team Status: Active Member Role Status Dates Lara Bobo BORE MILL OPERATOR, BORE MILL OPERATOR-C Primary Care Provider Activ e Jaleel Garcia BORE MILL OPERATOR, BORE MILL OPERATOR-C Attending Provider Active Team Status: Inactive Member Role Status Dates Lara Bobo BORE MILL OPERATOR, BORE MILL OPERATOR-C Primary Care Provider Activ e Dr. Gabriele Guerrero MD Attending Provider, Referring Pro vider Active Team Status: Active Member Role Status Dates Lara Bobo BORE MILL OPERATOR, BORE MILL OPERATOR-C Primary Care Provider Activ e Dr. Gabriele Guerrero MD Attending Provider, Referring Pro vider Active Team Status: Active Member Role Status Dates Lara Bobo BORE MILL OPERATOR, BORE MILL OPERATOR-C Primary Care Provider Activ e Gaye López BORE MILL OPERATOR, BORE MILL OPERATOR-C Referring Provider, Other Pr ovider Active Dr. Corey Damian , Attending Provider Active Team Status: Inactive Member Role Status Dates Lara Bobo BORE MILL OPERATOR, BORE MILL OPERATOR-C Primary Care Provider Activ e Gaye López BORE MILL OPERATOR, BORE MILL OPERATOR-C Attending Provider, Referrin g Provider Active Team Status: Inactive Member Role Status Dates Lara Bobo BORE MILL OPERATOR, BORE MILL OPERATOR-C Primary Care Provider Activ e Dr. Chadwick Munson MD Attending Provider, Referrin g Provider Active Team Status: Active Member Role Status Dates Dr. Gabrielle Goldstein MD Family Provider Active Marce Jack DO Primary Care Provider Active Team Status: Active Member Role Status Dates Dr. Aly Gupta DO Attending Provider, Referring P rovider Active Marce Jack DO Primary Care Provider Active Team Status: Inactive Member Role Status Dates Dr. Aly Gupta DO Attending Provider Active Marce Jack DO Primary Care Provider Active Team Status: Inactive Member Role Status Dates Dr. Aly Gupta DO Attending Provider, Referring P rovider Active Marce Jack DO Primary Care Provider Active Team Status: Inactive Member Role Status Dates Dr. Chadwick Munson MD Active Shavonne Blanchard BORE MILL OPERATOR, BORE MILL OPERATOR-C Attending Provider Active Marce Jack DO Primary Care Provider, Referring Provider Active Team Status: Inactive Member Role Status Dates Lara Bobo NP, BORE MILL OPERATOR-C Referring Provider Active Dr. Sugar Ramírez MD Attending Provider Active Marce Jack DO Primary Care Provider Active Team Status: Active Member Role Status Dates Marce Jack DO Primary Care Provider Active Monica Salcido Attending Provider Active Team Status: Inactive Member Role Status Dates Marce Jack , DO Primary Care Provider, Referring Provider Active Dr. Gabriele Guerrero MD Attending Provider Active Team Status: Inactive Member Role Status Dates Marce Jack , DO Primary Care Provi estuardo, Attending Provider, Referring Provider Active Team Status: Active Member Role Status Dates Marce Bangura Guero , DO Primary Care Provider Active Dr. Gabriele Guerrero MD Attending Provider Active Team Status: Inactive Member Role Status Dates Marce Jack , DO Primary Care Provider Active Dr. Gabriele Guerrero MD Attending Provider, Referring Pro vider Active Team Status: Inactive Member Role Status Dates Marce Sveta Guero , DO Primary Care Provider Active Dr. Aly Gupta , Attending Provider Active Team Status: Inactive Member Role Status Dates Marceautumn Jack , DO Primary Care Provider Active Dr. Aly Gupta DO Attending Provider, Referring P rovider Active Team Status: Inactive Member Role Status Dates Marce Jack , DO Primary Care Provider Active Shavonne Santo BORE MILL OPERATOR, BORE MILL OPERATOR-C Attending Provider, Referring Provider Active Team Status: Active Member Role Status Dates Marce Jack , DO Primary Care Provider Active Shavonne Santo BORE MILL OPERATOR, BORE MILL OPERATOR-C Attending Provider, Referring Provider Active Team Status: Active Member Role Status Dates Lynda Alonso MD Primary Care Provider Active Team Status: Inactive Member Role Status Dates Lynda Alonso MD Primary Care Provider Active St art: March 04, 2024 End: March 04, 2024 Dr. Gabriele Guerrero MD Attending Provider Active S tart: March 04, 2024 End: March 04, 2024 Dr. Gabriele Guerrero MD Referring Provider Active S tart: March 04, 2024 End: March 04, 2024 Dr. Chadwick Munson MD Other Provider Active Start: March 04, 2024 End: March 04, 2024 Team Status: Active Member Role Status Dates Lynda Alonso MD Primary Care Provider Active St art: March 04, 2024 Dr. Gabriele Guerrero MD Attending Provider Active S tart: March 04, 2024 Dr. Gabriele Guerrero MD Referring Provider Active S tart: March 04, 2024 Dr. Gabriele Guerrero MD Other Provider Active Start : March 04, 2024 Dr. Chadwick Munson MD Other Provider Active Start: March 04, 2024 Team Status: Active Member Role Status Dates Lynda Alonso MD Primary Care Provider Active St art: March 05, 2024 Lorena Beck BORE MILL OPERATOR, BORE MILL OPERATOR-C Attending Provider Active Start: March 05, 2024 Team Status: Inactive Member Role Status Osman Alonso MD Primary Care Provider Active St art: March 07, 2024 End: March 07, 2024 Dr. Chadwick Munson MD Attending Provider Active Start: March 07, 2024 End: March 07, 2024 Dr. Chadwick Munson MD Referring Provider Active Start: March 07, 2024 End: March 07, 2024 Team Status: Inactive Member Role Status Osman Alonso MD Primary Care Provider Active St art: March 11, 2024 End: March 11, 2024 Lynda Alonso MD Referring Provider Active Start : March 11, 2024 End: March 11, 2024 Dr. Chadwick Munson MD Attending Provider Active Start: March 11, 2024 End: March 11, 2024 Team Status: Active Member Role Status Dates Lara Bobo BORE MILL OPERATOR, BORE MILL OPERATOR-C Primary Care Provider Activ e Start: March 11, 2024 Dr. Chadwick Munson MD Attending Provider Active Start: March 11, 2024 Dr. Chadwick Munson MD Referring Provider Active Start: March 11, 2024 Team Status: Inactive Member Role Status Osman Alonso MD Primary Care Provider Active St art: March 22, 2024 End: March 22, 2024 Lynda Alonso MD Attending Provider Active Start : March 22, 2024 End: March 22, 2024 Lynda Alonso MD Referring Provider Active Start : March 22, 2024 End: March 22, 2024 Team Status: Active Member Role Status Osman Alonso MD Primary Care Provider Active St art: April 15, 2024 Lynda Alonso MD Attending Provider Active Start : April 15, 2024 Lynda Alonso MD Referring Provider Active Start : April 15, 2024 Team Status: Inactive Member Role Status Osman Alonso MD Primary Care Provider Active St art: April 18, 2024 End: April 18, 2024 Lynda Alonso MD Referring Provider Active Start : April 18, 2024 End: April 18, 2024 ELIJAH Flannery Attending Provider Active Star t: April 18, 2024 End: April 18, 2024 Team Status: Inactive Member Role Status Osman Alonso MD Primary Care Provider Active St art: April 18, 2024 End: April 18, 2024 Dr. Gabriele Guerrero MD Attending Provider Active S tart: April 18, 2024 End: April 18, 2024 Team Status: Inactive Member Role Status Osman Alonso MD Primary Care Provider Active St art: April 24, 2024 End: April 24, 2024 Dr. Sarabjit Perdomo MD Attending Provider Active Start: April 24, 2024 End: April 24, 2024 Dr. Sarabjit Perdomo MD Referring Provider Active Start: April 24, 2024 End: April 24, 2024 Team Status: Inactive Member Role Status Osman Alonso MD Primary Care Provider Active St art: April 25, 2024 End: April 25, 2024 Trish Wolff BORE MILL OPERATOR, BORE MILL OPERATOR-C Attending Provider Active S tart: April 25, 2024 End: April 25, 2024 Trish Wolff BORE MILL OPERATOR, BORE MILL OPERATOR-C Referring Provider Active S tart: April 25, 2024 End: April 25, 2024 Team Status: Inactive Member Role Status Osman Alonso MD Primary Care Provider Active St art: April 28, 2024 End: April 28, 2024 Ed Physician Provider Attending Provider Active Start: April 28, 2024 End: April 28, 2024 Ed Physician Provider Emergency Provider Active Start: April 28, 2024 End: April 28, 2024 Team Status: Inactive Member Role Status Osman Alonso MD Primary Care Provider Active St art: April 29, 2024 End: April 29, 2024 Dr. Blas Chi DO Attending Provider Activ e Start: April 29, 2024 End: April 29, 2024 Dr. Blas Chi DO Emergency Provider Activ e Start: April 29, 2024 End: April 29, 2024 Team Status: Inactive Member Role Status Osman Alonso MD Primary Care Provider Active St art: April 30, 2024 End: April 30, 2024 Dr. Cesar Barbour DO Attending Provider Active Start: April 30, 2024 End: April 30, 2024 Dr. Cesar Barbour DO Emergency Provider Active Start: April 30, 2024 End: April 30, 2024 Team Status: Inactive Member Role Status Osman Alonso MD Primary Care Provider Active St art: May 02, 2024 End: May 02, 2024 ELIJAH Flannery Attending Provider Active Star t: May 02, 2024 End: May 02, 2024 ELIJAH Flannery Referring Provider Active Star t: May 02, 2024 End: May 02, 2024 Team Status: Inactive Member Role Status Osman Alonso MD Primary Care Provider Active St art: May 09, 2024 End: May 09, 2024 Lynda Alonso MD Referring Provider Active Start : May 09, 2024 End: May 09, 2024 ELIJAH Flannery Attending Provider Active Star t: May 09, 2024 End: May 09, 2024 Team Status: Inactive Member Role Status Osman Alonso MD Primary Care Provider Active St art: May 16, 2024 End: May 16, 2024 Dr. Sarabjit Perdomo MD Attending Provider Active Start: May 16, 2024 End: May 16, 2024 Dr. Sarabjit Perdomo MD Referring Provider Active Start: May 16, 2024 End: May 16, 2024 Team Status: Inactive Member Role Status Osman Alonso MD Primary Care Provider Active St art: May 21, 2024 End: May 21, 2024 Dr. Gabriele Guerrero MD Attending Provider Active S tart: May 21, 2024 End: May 21, 2024 Dr. Gabriele Guerrero MD Referring Provider Active S tart: May 21, 2024 End: May 21, 2024 Team Status: Inactive Member Role Status Osman Alonso MD Primary Care Provider Active St art: May 21, 2024 End: May 21, 2024 Lynda Alonso MD Referring Provider Active Start : May 21, 2024 End: May 21, 2024 Dr. Blu Mejia MD Attending Provider Active Start: May 21, 2024 End: May 21, 2024 Team Status: Inactive Member Role Status Osman Alonso MD Primary Care Provider Active St art: June 18, 2024 End: June 18, 2024 Dr. Chadwick Munson MD Attending Provider Active Start: June 18, 2024 End: June 18, 2024 Dr. Chadwick Munson MD Referring Provider Active Start: June 18, 2024 End: June 18, 2024 Team Status: Inactive Member Role Status Osman Alonso MD Primary Care Provider Active St art: June 19, 2024 End: June 19, 2024 Lynda Alonso MD Referring Provider Active Start : June 19, 2024 End: June 19, 2024 Dr. Chadwick Munson MD Attending Provider Active Start: June 19, 2024 End: June 19, 2024 Team Status: Active Member Role Status Osman Alonso MD Primary Care Provider Active St art: June 21, 2024 Dr. Aly Gupta DO Attending Provider Active Start: June 21, 2024 Dr. Aly Gupta DO Referring Provider Active Start: June 21, 2024 Team Status: Active Member Role Status Osman Alonso MD Primary Care Provider Active St art: June 24, 2024 Gaye López BORE MILL OPERATOR, BORE MILL OPERATOR-C Attending Provider Active Start: June 24, 2024 Gaye López BORE MILL OPERATOR, BORE MILL OPERATOR-C Referring Provider Active Start: June 24, 2024 Team Status: Inactive Member Role Status Osman Alonso MD Primary Care Provider Active St art: June 24, 2024 End: June 24, 2024 Lynda Alonso MD Referring Provider Active Start : June 24, 2024 End: June 24, 2024 Dr. Aly Gupta DO Attending Provider Active Start: June 24, 2024 End: June 24, 2024 Team Status: Active Member Role Status Osman Alonso MD Primary Care Provider Active St art: June 28, 2024 Gaye López BORE MILL OPERATOR, BORE MILL OPERATOR-C Referring Provider Active Start: June 28, 2024 Gaye López BORE MILL OPERATOR, BORE MILL OPERATOR-C Other Provider Active Start: June 28, 2024 Dr. Corey Damian DO Attending Provider Active S tart: June 28, 2024 Team Status: Inactive Member Role Status Osman Alonso MD Primary Care Provider Active St art: June 21, 2024 End: June 21, 2024 Dr. Aly Gupat DO Attending Provider Active Start: June 21, 2024 End: June 21, 2024 Dr. Aly Gupta DO Referring Provider Active Start: June 21, 2024 End: June 21, 2024 Team Status: Inactive Member Role Status Osman Alonso MD Primary Care Provider Active St art: June 24, 2024 End: June 24, 2024 Gaye López BORE MILL OPERATOR, BORE MILL OPERATOR-C Attending Provider Active Start: June 24, 2024 End: June 24, 2024 Gaye López BORE MILL OPERATOR, BORE MILL OPERATOR-C Referring Provider Active Start: June 24, 2024 End: June 24, 2024 Team Status: Inactive Member Role Status Osman Alonso MD Primary Care Provider Active St art: April 15, 2024 End: April 15, 2024 Lynda Alonso MD Attending Provider Active Start : April 15, 2024 End: April 15, 2024 Lynda Alonso MD Referring Provider Active Start : April 15, 2024 End: April 15, 2024 Team Status: Active Member Role Status Osman Alonso MD Primary Care Provider Active St art: August 26, 2024 Dr. Chadwick Munson MD Attending Provider Active Start: August 26, 2024 Dr. Chadwick Munson MD Referring Provider Active Start: August 26, 2024 Team Status: Inactive Member Role Status Osman Alonso MD Primary Care Provider Active St art: August 28, 2024 End: August 28, 2024 Lynda Alonso MD Referring Provider Active Start : August 28, 2024 End: August 28, 2024 Gaye López BORE MILL OPERATOR, BORE MILL OPERATOR-C Attending Provider Active Start: August 28, 2024 End: August 28, 2024 Team Status: Inactive Member Role Status Osman Alonso MD Primary Care Provider Active St art: August 29, 2024 End: August 29, 2024 Lynda Alonso MD Referring Provider Active Start : August 29, 2024 End: August 29, 2024 Dr. Chadwick Munson MD Attending Provider Active Start: August 29, 2024 End: August 29, 2024 Team Status: Inactive Member Role Status Osman Alonso MD Primary Care Provider Active St art: August 26, 2024 End: August 26, 2024 Dr. Chadwick Munson MD Attending Provider Active Start: August 26, 2024 End: August 26, 2024 Dr. Chadwick Munson MD Referring Provider Active Start: August 26, 2024 End: August 26, 2024 Team Status: Inactive Member Role Status Osman Alonso MD Primary Care Provider Active St art: September 03, 2024 End: September 03, 2024 Dr. Chadwick Munson MD Attending Provider Active Start: September 03, 2024 End: September 03, 2024 Dr. Chadwick Munson MD Referring Provider Active Start: September 03, 2024 End: September 03, 2024 Team Status: Active Member Role Status Osman Alonso MD Primary Care Provider Active St art: September 11, 2024 Lynda Alonso MD Attending Provider Active Start : September 11, 2024 Lynda Alonso MD Referring Provider Active Start : September 11, 2024 Team Status: Inactive Member Role Status Osman Alonso MD Primary Care Provider Active St art: September 11, 2024 End: September 11, 2024 Lynda Alonso MD Referring Provider Active Start : September 11, 2024 End: September 11, 2024 Dr. Chadwick Munson MD Attending Provider Active Start: September 11, 2024 End: September 11, 2024 Team Status: Inactive Member Role Status Osman Alonso MD Primary Care Provider Active St art: September 11, 2024 End: September 11, 2024 Lynda Alonso MD Attending Provider Active Start : September 11, 2024 End: September 11, 2024 Lynda Alonso MD Referring Provider Active Start : September 11, 2024 End: September 11, 2024 Team Status: Active Member Role Status Osman Bobo BORE MILL OPERATOR, BORE MILL OPERATOR-C Primary Care Provider Activ e Start: September 17, 2024 Dr. Chadwick Munson MD Attending Provider Active Start: September 17, 2024 Dr. Chadwick Munson MD Referring Provider Active Start: September 17, 2024 Team Status: Inactive Member Role Status Osman Alonso MD Primary Care Provider Active St art: September 24, 2024 End: September 24, 2024 Lynda Alonso MD Referring Provider Active Start : September 24, 2024 End: September 24, 2024 Dr. Chadwick Munson MD Attending Provider Active Start: September 24, 2024 End: September 24, 2024 Team Status: Inactive Member Role Status Osman Alonso MD Primary Care Provider Active St art: September 27, 2024 End: September 27, 2024 Dr. Sugar Ramírez MD Attending Provider Active Start: September 27, 2024 End: September 27, 2024 Dr. Chadwick Munson MD Referring Provider Active Start: September 27, 2024 End: September 27, 2024 Team Status: Inactive Member Role Status Dates Lynda Alonso MD Primary Care Provider Active St art: September 30, 2024 End: September 30, 2024 Lynda Alonso MD Referring Provider Active Start : September 30, 2024 End: September 30, 2024 Shavonne Blanchard BORE MILL OPERATOR, BORE MILL OPERATOR-C Attending Provider Active Start: September 30, 2024 End: September 30, 2024 INFORMATION SOURCE (unrecogn ized section and content) DATE CREATED AUTHOR 10/01/2024 [facility] FOR RECORDS PERTAINING TO PATIENTS WHO ARE OR HAVE BEEN ENROLLED IN A CHEMICAL DEPENDENCY/SUBSTANCEABUSE PROGRAM, SOME INFORMATION MAY BE OMITTED. This clinical summary was aggregated from multiple sources. Caution should be exercised in using it in the provision of clinical care. This summary normalizes information from multiple sources, and as a consequence, information in this document may materially change the coding, format and clinical context of patient data. In addition, data may be omitted in some cases. CLINICAL DECISIONS SHOULD BE BASED ON THE PRIMARY CLINICAL RECORDS. [employer] provides no warranty or guarantee of the accuracy or completeness of information in this document.
[2024-10-02] MEDS: Lactated Ringers 1,000 ML 15 ML IV (07:46)
--- NOTE | 2024-10-02 07:51 | PCM.PRE.AN2 ---
ASA Classification* ASA Classification ASA Classification: 3 Assessment & Plan Anesthesia* Anesthesia Assessment Anesthesia Assessment: Discussed sedation and/or anesthesia options, risks, benefits, and alternatives with patient/parents/legal guardian/POA. Questions invited. The patient/parents/legal guardian/POA seems to understand and agrees to proceed with anesthesia plan. Reviewed the physical assessment, medical history, allergy history and patient home medications list prior to surgery/procedure/anesthetic and documented any changes. Performed airway and anesthesia risk assessments. Anesthesia Type Anesthesia Type: MAC History Source History Obtained from:: Patient and Chart Anesthesia Focused Assessment* Temperature: 97.8 F Pulse Rate: 77 Blood Pressure: 122/81 Respiratory Rate: 18 Pulse Ox: 100 Oxygen Delivery Method: Room Air Airway Assessment Mouth opens: >3 cm Mallampati Score: IV Teeth Condition: Dentures (Patient has full upper and lower dentures.) Neck Range of motion (ROM): Full ROM Labs Anesthesia Preop lab: CBC WBC 8.8 K/mm3 (4.4-11.0) 09/11/24 13:01 09/11/24 RBC 4.78 M/mm3 (4.2-5.4) 09/11/24 13:01 09/11/24 Hgb 14.6 g/dL (12.0-15.0) 09/11/24 13:01 09/11/24 Hct 44.2 % (37-47) 09/11/24 13:01 09/11/24 Plt Count 244 K/mm3 (150-450) 09/11/24 13:01 09/11/24 CHEMISTRY Potassium 4.0 mmol/L (3.3-5.1) 09/11/24 13:01 09/11/24 Sodium 136 mmol/L (133-145) 09/11/24 13:01 09/11/24 Magnesium 2.2 mg/dL (1.5-2.2) 09/11/24 13:01 09/11/24 Phosphorus 3.3 mg/dL (2.5-4.9) 03/11/24 13:20 03/11/24 BUN 14 mg/dL (4-19) 09/11/24 13:01 09/11/24 Creatinine 0.97 mg/dL (0.70-1.20) 09/11/24 13:01 09/11/24 Glucose 149 mg/dL (70-99) H 09/11/24 13:01 09/11/24 TSH 2.390 uIU/mL (0.300-4.200) 09/11/24 13:01 09/11/24 COAG PT 12.0 SECONDS (11.7-14.9) 09/03/24 07:42 09/03/24 Pre-Assessment Diagnosis/Proposed Procedure Planned Operative Procedure(s): INSERTION VASCULAR PORT RIGHT Anesthesia History 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 When Was Last Pacemaker Check QUESTION #4 FULL TEXT: You/Your Family Experience fever (hyperthermia) with Anesthesia Last Oral Intake Last Oral intake: Last Oral Intake NPO since 07:00 10/02/24 07:40 Meds taken in AM with sips of Yes 10/02/24 07:40 water? Meds patient instructed to metoprolol, oxycodone 10/02/24 07:40 take am of surgery Any additional information?: Yes Meds taken in AM with sips of water?: Yes PONV PONV - c2 tactical analysis technician: PONV - c2 tactical analysis technician Female Yes 09/30/24 13:29 HX of Motion Sickness No 09/30/24 13:29 HX of N/V After Surgery No 09/30/24 13:29 Non-Smoker No 09/30/24 13:29 Duration of Surgery greater No 09/30/24 13:29 than 60 minutes Number of Risk Factors 1 09/30/24 13:29 PONV Score Low Risk 09/30/24 13:29 Height & Weight Height & Weight: Anesthesia: Height & Weight Height 5 ft 3 in 10/02/24 07:40 Weight: 63 kg 10/02/24 07:40 Body Mass Index (BMI) 24.5 10/02/24 07:40 Respiratory Assessment Respiratory Assessment - c2 tactical analysis technician: Respiratory Tract Infection Hx - c2 tactical analysis technician Hx Respiratory Tract Infection No 09/30/24 13:29 STOP Sleep Apnea STOP Sleep Apnea - c2 tactical analysis technician: STOP Sleep Apnea - c2 tactical analysis technician Hx Hypertension No 09/30/24 13:29 Hx Sleep Apnea No 09/30/24 13:29 CPAP No 04/12/22 08:32 BIPAP Do you snore loudly (louder No 09/30/24 13:29 than talking or can be heard Do you often feel tired/ No 09/30/24 13:29 fatigued/ sleepy during daytime? Has anyone observed you stop No 09/30/24 13:29 breathing during sleep? STOP Results Negative 09/30/24 13:29 QUESTION #5 FULL TEXT : Do you snore loudly (louder than talking or can be heard through closed doors)? 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 Specify any problems Hx of Preganancy in last 3 No 09/30/24 13:29 Months Nurse Filling Out Transfusion DSCHRIBER 09/30/24 13:29 & Questions: Date: 09/30/24 09/30/24 13:29 Time: 13:30 09/30/24 13:29 Patient unable to answer at this time (ie. confused, unrespo /Reproduction History /Reproductive History - c2 tactical analysis technician: /Reproductive Hx- c2 tactical analysis technician Hx Now No 09/30/24 13:29 Gestational Age (in weeks): EDC: Hx Hx Para Hx Section SAB No 09/30/24 13:29 Active Medications Active Medications: Current Medications Generic Name Dose Route Start Last Admin Trade Name Freq PRN Reason Stop Dose Admin Clindamycin Phosphate 900 mg in 50 mls @ 75 mls/hr 10/02/24 08:45 Cleocin IV 10/02/24 09:24 INTRAOP ONE Lactated Ringer's 1,000 mls @ 15 mls/hr 10/02/24 07:45 10/02/24 07:46 IV 15 mls/hr .Q48H KARLOS Administration PFSH Medical History Loss of hearing History of steroid therapy Arthritis Easy bruising Back pain History of ulceration Shortness of breath on exertion History of irregular heartbeat History of echocardiogram Metastasis to lung Vitiligo Local recurrence of lung cancer Generalized weakness Low back pain Encounter for chemotherapy management Anemia Tachycardia Thrombocytopenia Constipation Cancer Encounter for education Chronic renal failure Regional lymph node metastasis present Wears glasses Wears dentures Post-menopausal Depression Anxiety Alcohol use Gastric reflux Smoker Cardiology follow-up encounter Vitamin D deficiency Home Medications ?Medication ?Instructions ?Recorded ?Last Taken ?Type famotidine 20 mg tablet 20 mg PO QHS 10/26/23 Unknown History magnesium citrate 100 mg capsule 100 mg PO DAILY 11/30/23 Unknown History metoprolol succinate 50 mg 50 mg PO QDAY #90 tabs 05/21/24 10/02/24 04:30 Rx tablet,extended release 24 hr oxycodone 5 mg capsule 5 mg PO TID 09/03/24 10/02/24 07:00 History lidocaine-prilocaine 2.5 %-2.5 % 1 applic topical ONCE PRN port 09/30/24 Unknown Rx topical cream access 30 days #30 grams ondansetron 8 mg disintegrating 8 mg PO Q8H PRN nausea and 09/30/24 Unknown Rx tablet vomiting #30 tabs pregabalin 75 mg capsule 75 mg PO BID 09/30/24 Unknown History Allergy/AdvReac Type Severity Reaction Status Date / Time amoxicillin (From Augmentin) Allergy Intermediate stomach Verified 10/02/24 07:39 pain clavulanic acid (From Allergy Intermediate stomach Verified 10/02/24 07:39 Augmentin) pain Sulfa (Sulfonamide Allergy Nausea Verified 10/02/24 07:39 Antibiotics) Family History Father Alcoholism High cholesterol Hypertension Alzheimer disease Mother Alcoholism Anxiety Cancer unknown primary diagnosis High cholesterol Hypertension Grandfather Alcoholism Grandmother Alcoholism Cancer possibly had cancer but not confirmed Sister Breast cancer, Onset Age: 60 High cholesterol Hypertension Aunt Cancer pancreatic Uncle Lung cancer Surgical History History of vascular access device Hx of surgical procedure History of lung biopsy Hx of colonoscopy History of esophagogastroduodenoscopy (EGD) history of left eye surgery Social History household members: significant other 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
--- NOTE | 2024-10-02 08:07 | HP.PCM_ITS ---
History and Physical Date of Admission: 10/02/24 Date of Service: 09/27/24 MR#: [id number] Acct: [id number] Name: ASIF HERNANDEZ Rep #: [id number] : 1955 Provider: Dr. Sugar Ramírez MD Age/Sex: 69/F Location: [facility] Status: Signed Intake Vital Signs 09/24/2513:35 09/27/2508:09 Height 5 ft 5 in 5 ft 5 in Weight: 141 lb 8 oz 140 lb 2 oz BMI 23.5 23.3 BP 112/72 163/83 H Blood Pressure Location Lt brachial Rt brachial Position Sitting Sitting Respiration 16 18 Pulse 82 85 Pulse Source Monitor Monitor Temp 95.3 F L 96.0 F L Temp Source Temporal Pulse Oximetry (%) 98 100 Oxygen Delivery Method room air room air Intake Visit Reasons: PORT PLACEMENT Chief Complaint: Port Placement Payroll Tax Specialist Required: No Is patient in pain?: No Allergies amoxicillin (From Augmentin) Allergy (Intermediate, Verified 09/27/24 09:10) stomach pain clavulanic acid (From Augmentin) Allergy (Intermediate, Verified 09/27/24 09:10) stomach pain Sulfa (Sulfonamide Antibiotics) Allergy (Verified 09/27/24 09:10) Nausea Medications ?Medication ?Instructions ?Recorded ?Confirmed ?Type famotidine 20 mg tablet 20 mg PO QHS 10/26/23 09/27/24 History magnesium citrate 100 mg capsule 100 mg PO DAILY 11/30/23 09/27/24 Histor y atorvastatin 20 mg tablet (Lipitor) 20 mg PO QDAY #60 tabs 02/16/24 09/27/24 Rx Held on 09/03/24. Instructions: Ordered ondansetron 4 mg disintegrating 4 mg PO Q8H PRN PRN Nausea #10 tabs 04/1709/27/24 Rx tablet metoprolol succinate 50 mg 50 mg PO QDAY #90 tabs 05/21/24 09/27/24 Rx tablet,extended release 24 hr baclofen 5 mg tablet 5 mg PO 3XD PRN muscle spasm 08/29/24 History pregabalin 100 mg capsule (Lyrica) 100 mg PO BID 08/29/24 09/27/24 History oxycodone 5 mg capsule 5 mg PO BID 09/03/24 09/27/24 History Have you fallen in the past year?: No PFSH Medical History Metastasis to lung Vitiligo Local recurrence of lung cancer COVID Generalized weakness Low back pain Encounter for chemotherapy management Anemia Tachycardia Thrombocytopenia Constipation Cancer Encounter for education Chronic renal failure Hypertension Regional lymph node metastasis present Wears glasses Wears dentures Post-menopausal Depression Anxiety Alcohol use Injury of head and neck Gastric reflux Emphysema, unspecified Smoker Shortness of breath on exertion Chronic cough Leg cramps History of stress test Cardiology follow-up encounter Chest pain Mild depression Vitamin D deficiency History of alcohol abuse Surgical History History of vascular access device Hx of surgical procedure History of lung biopsy Hx of colonoscopy History of esophagogastroduodenoscopy (EGD) history of left eye surgery Family History Father Alcoholism High cholesterol Hypertension Alzheimer diseaseMother Alcoholism Anxiety Cancer unknown primary diagnosis High cholesterol HypertensionGrandfather AlcoholismGrandmother Alcoholism Cancer possibly had cancer but not confirmedSister Breast cancer, Onset Age: 60 High cholesterol HypertensionAunt Cancer pancreaticUncle Lung cancer Social History household members: significant other 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 Patient does have recurrent lung cancer after chemotherapy and radiation and port removal in 2022. ROS General General: No weight change, appetite, fatigue, colon cancer, breast cancer or weakness HEENT HEENT: No difficulty swallowing, eye injury, eye surgery, swollen glands or ho arseness Endo Endocrine: No thyroid disease, diabetes mellitus, thyroid cancer, Hair loss, heat intolerance or cold intolerance Skin Skin: No rash or changing moles Breast Breast: No left breast lump, right breast lump, nipple discharge, breast pain, abnormal mammogram, abnormal US or breast enlargement Musc Musculoskeletal: Yes back problems; No arthritis, rheumatoid arthritis, gout or joint pain Cardio Cardiovascular: No murmur, pacemaker, heart disease, atrial fibrillation, high blood pressure, heart attack, heart stent, palpitations, shortness of breath with exertion or chest pain Additional Details: Started on Metoprolol for tachycardia Psych Psychiatric: Yes anxiety; No depression or hearing voices Resp Respiratory: No shortness of breath, No sleep apnea, No cough, No COPD, No asthma, No emphysema and No wheezing Gastro Gastrointestinal: No abdominal pain, No nausea or vomiting, No diarrhea, No constipation, No blood in stool, Yes acid reflux, No hemorrhoids, No ulcers, No gallbladder problem and No black,tarry stools Additional Details: On Famotidine Augusto Hematologic: No blood thinners, No blood disorders, No bleeding, No anemia and No blood clots Neuro Neurologic: No system reviewed and no additional complaints, except as documented, No as per HPI, No abnormal gait, No abnormal hearing, No abnormal movements, No abnormal speech, No behavioral changes, No burning sensations, No confusion, No convulsions, No disequilibrium, No dizziness, No localized weakness, No frequent falls, No headache(s), No lack of coordination, No loss of vision, No memory loss, Yes numbness, No other visual disturbances, No radicular pain, No restless legs, No sensory deficit, No syncope, Yes tingling, No tremor(s), No weakness and No other Exam Const General: cooperative, healthy appearing, comfortable and no acute distress Neck Neck: supple Chest Other: Normal inspection of upper chest, well-healed previous left chest port site Assessment and Plan Assessment and Plan (1) Encounter for insertion of venous access port: Status: Acute (2) Local recurrence of lung cancer: Status: Acute Qualifiers: Laterality: right Qualified Code(s): C34.91 - Malignant neoplasm of unspecified part of right bronchus or lung Plan I have discussed above with the patient- Port-a-Cath placement. Right IJ possible left Patient has been counseled as to the risks/benefits of the procedure. I have explained the risks of the surgery, including but not limited to: infection, bleeding, injury to any blood vessels/nerves, injury to lungs (such as pneumothorax or hemothorax and need for chest tube), not having any access, nonfunctioning of port due to thrombosis, infection of port, etc. the patient understands and agrees to proceed. I have answered all the patient's questions to the patient?s satisfaction and the patient has no further questions. Sugar Ramírez M.D. Pager: [phone] [facility] [address] [place] [address], [facility], [address] [place] [address] Office: [phone] Coding Level of Care Code Off vis,est,level 3 Diagnoses Encounter for insertion of venous access port Z45.2 Local recurrence of malignant neoplasm of right lung C34.91 Laterality: right Clinical Quality Measures Falls Risk Screening/Assistive Devices Have you fallen in the past year?: No 09/27/24 3086 <Electronically signed by Sugar Ramírez MD> Date Sugar Ramírez MD
[2024-10-02] MEDS: Clindamycin 900 MG/50 ML BAG 75 MG IV (08:59)
[2024-10-02] MEDS: Bupivacaine Mpf 0.5% 30 ML VIAL (09:28)
[2024-10-02] MEDS: Lidocaine 1% /Epi 1:100 (50ml) 50 ML VIAL (09:28)
--- NOTE | 2024-10-02 09:44 | RAD_ITS ---
PROCEDURE: CHEST 1 VIEW (PORTABLE) 10/02/2024 REASON FOR EXAM: Port placement. TECHNIQUE: Frontal view of the chest. COMPARISON: Prior study dated September 03, 2024. FINDINGS: Hardware: A right-sided port a catheter has been placed with the tip at the junction of the superior vena cava and right atrium. Heart: The heart size is normal. Lungs: Once again, there is evidence of increased markings in the right perihilar region and right upper lobe. The left lung is clear. Bones: Degenerative changes are identified within the thoracic spine. Other: RAD/Chest 1 View (Portable) IMPRESSION: The tip of the right port a catheter is at the junction of the superior vena ca va and right atrium. Reading Location: [place] [address]
--- NOTE | 2024-10-02 09:44 | PCM.OPRPT ---
Operative Report (Standard) Operative Information Date of Procedure: 10/02/24 Pre-Operative Diagnosis: z45.2, lung cancer Post-Operative Diagnosis: Same Surgery/Procedure Performed: Insert right IJ Port-A-Cath Use of fluoroscopy Use of ultrasound technical internship: No Type of Anesthesia: Local MAC RN Documented Start/Stop Times: Operation Date: 10/02/24 08:45 Case Time Into Pre-Op 10/02/24 07:14 Anesthesia Start 10/02/24 08:59 Into Room 10/02/24 08:59 Out of Pre-Op 10/02/24 08:59 Procedure Start 10/02/24 09:12 Procedure End 10/02/24 09:34 Anesthesia End 10/02/24 09:43 Out of Room 10/02/24 09:43 Into Recovery 10/02/24 09:45 Procedure Start Time: 09:12 Procedure Stop Time: 09:34 Select all DRAINS/GRAFTS/IMPLANTS that apply: Implanted device Implanted device details: [employer] PowerPort isp M.R.I. 6Fr Lot [id number] ref [id number] Special Medications: Clindamycin 900 mg IV x 1 Estimated Blood Loss: < 10 cc Specimen collected: No Description of surgery: After informed consent was given, the patient was brought to the operating room and placed in the supine position. Appropriate time out protocol was followed. Patient was then given IV conscious sedation for anesthesia. The patient's right upper chest and neck were then prepped with a surgical skin preparation and sterile surgical drapes were placed. After proper landmarks were ascertained, the skin at the upper right chest area was then infiltrated with 1:1 mixture of 1% lidocaine with epinephrine and 0.5% marcaine. A needle trocar was then inserted into the right internal jugular vein with ultrasound guidance-multiple vessels were viewed with u/s and the right IJ was chosen-- and there was good aspiration of venous blood. A wire was then threaded into the needle trocar and this was visualized under fluoroscopy to ensure that the wire was in the superior vena cava. Once this was done, then the needle trocar was removed. A small skin dank was made with an 11 blade knife at the wire entrance site. The dilator with the introducer sheath attached was then placed over the wire into the right internal jugular vein via the Seldinger technique and this was visualized under fluoroscopy. The dilator and sheath were in proper position as visualized by fluoroscopy. A subcutaneous pocket was then created caudad to the catheter insertion site. A transverse skin incision was made after the skin and subcutaneous tissues were infiltrated with local anesthetic. Blunt dissection was then used to create a space large enough for placement of the subcutaneous port. The catheter was then tunneled into the subcutaneous pocket. The wire and dilator were then removed. The catheter was then threaded into the introducer sheath and was positioned with its tip at the junction of the superior vena cava and the right atrium as visualized under fluoroscopy. The excess catheter was transected. The catheter was then attached to the subcutaneous port using manufacturers guidelines. The catheter was flushed with a heparin saline mixture prior to placement. Hemostasis was carefully controlled with electrocautery. The port was sutured to the subcutaneous fascia using 2-0 Vicryl suture at two sites. The port was then placed in the subcutaneous pocket. The incision were reapproximated with interrupted subdermal 3-0 vicryl sutures. The skin was reapproximated with 3-0 nylon suture in a interrupted fashion. Steristrips were used for reinforcement of the skin closure at IJ insertion site and a sterile opsite dressings were applied. The patient tolerated the procedure well. Surgical Findings: See operative report Complications Complications: No
--- NOTE | 2024-10-02 09:47 | DCINST_ITS ---
Discharge Instructions Procedure Port-A-Cath Diet Discharge Diet: Light diet - advance as tolerated Activity May shower in (days): 5 (Keep port site clean and dry x5 days. Neck incision okay to get wet after 1 day. Okay to lower shower and upper sponge bath. OR okay to taper off port site with a Ziploc bag to shower) Lifting Restrictions: No lifting > 15 pounds for 3 days with the arm on the side of the port Dressing / Incision Call your doctor if your incision/area has: Continuous Slow Oozing, Sudden Increased Bleeding, Increased Pain/ Swelling, Increased Redness, Foul Smelling Discharge and Swelling at the incision site Call your doctor if you observe: Fever of 101 or Higher Change Dressing in: 2 days (2-3 days- port site; ok to remove neck opsite in 1 day) Follow Up Care Please Follow Up With: Sugar Ramírez MD When: In 10 days for permanent suture removal?call office for appointment Test Results: Test results from this visit will be discussed in further detail at your follow- up appointment, if applicable. Discharge Plan Admission Attending Provider: Sugar Ramírez Primary Care Provider: Lynda Alonso Instructions Print Language: Ukrainian Discharge Orders/Prescriptions Prescriptions: Continued famotidine 20 mg tablet 20 mg PO QHS magnesium citrate 100 mg capsule 100 mg PO DAILY ondansetron 8 mg tablet,disintegrating 8 mg PO Q8H PRN (Reason: nausea and vomiting) Qty: 30 2RF lidocaine-prilocaine 2.5-2.5 % cream 1 applic topical ONCE PRN (Reason: port access) 30 Days Qty: 30 2RF pregabalin 75 mg capsule 75 mg PO BID oxycodone 5 mg capsule 5 mg PO TID metoprolol succinate 50 mg tablet extended release 24 hr 50 mg PO QDAY Qty: 90 3RF Referrals / Follow Up: Lynda Alonso MD [Primary Care Provider] - Disposition Disposition (needs filled in before D/C Order can be placed): Home, Self Care
--- NOTE | 2024-10-02 09:48 | PCM.POST.ANE ---
Anesthesia: Postop Eval I Current Vital Signs Temperature: 97.9 F Pulse Rate: 80 Blood Pressure: 88/63 Respiratory Rate: 14 Pulse Ox: 95 Oxygen Delivery Method: Room Air Assessment Airway patent: Yes Spontaneous unlabored respirations: Yes Mental status: Awake and Calm nausea: No Vomiting: No Anesthesia Complication: No Fluid Hydration Crystalloid volume administer (ml): 200 Total IV fluid infused: 200 Progress Note Anesthesia document: Postop Eval 1 completed: Yes
--- NOTE | 2024-10-02 16:33 | POSTOPAN2_ITS ---
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 Spontaneous unlabored Yes 10/02/24 09:49 [email or web address] respirations Mental status Awake,Calm 10/02/24 09:49 [email or web address] nausea No 10/02/24 09:49 [email or web address] Vomiting No 10/02/24 09:49 [email or web address] Anesthesia Postop Eval I: Fluid Summary Crystalloid volume administer 200 10/02/24 09:49 [email or web address] (ml) Colloids volume administered ( ml) Blood Product volume administered (ml) Total IV fluid infused 200 10/02/24 09:49 [email or web address] Anesthesia Postop Eval I: Summary Notes Anesthesia Complication No 10/02/24 09:49 [email or web address] Anesthesia Complication Comment: Post-operative progress note Anesthesia: Postop Eval II Evaluation Mental status: Awake and Calm Pain Level: 0 nausea: No Vomiting: No Complications Anesthesia Complication: No
--- NOTE | 2024-10-02 16:33 | PCM.POSTANE2 ---
Anesthesia Postop Eval I Sum Postop Eval Completion status Anesthesia document: Postop Eval 1 completed: Yes Anesthesia Postop Eval I Summary Anesthesia Postop Eval I Summary: Anesthesia Postop Eval I: Assessment Summary Airway patent Yes 10/02/24 09:49 [email or web address] Spontaneous unlabored Yes 10/02/24 09:49 [email or web address] respirations Mental status Awake,Calm 10/02/24 09:49 [email or web address] nausea No 10/02/24 09:49 [email or web address] Vomiting No 10/02/24 09:49 [email or web address] Anesthesia Postop Eval I: Fluid Summary Crystalloid volume administer 200 10/02/24 09:49 [email or web address] (ml) Colloids volume administered ( ml) Blood Product volume administered (ml) Total IV fluid infused 200 10/02/24 09:49 [email or web address] Anesthesia Postop Eval I: Summary Notes Anesthesia Complication No 10/02/24 09:49 [email or web address] Anesthesia Complication Comment: Post-operative progress note Anesthesia: Postop Eval II Evaluation Mental status: Awake and Calm Pain Level: 0 nausea: No Vomiting: No Complications Anesthesia Complication: No
== END 2024-10-02 11:17 | disposition home or self-care (01) ==
LOC: SDC 07:09 → AC 07:10
PROVIDERS: PCP Family Medicine; Referring Provider Surgery; Visit Provider Surgery
PROC: (CPT 36561; principal; 2024-10-02 08:30)
DX: Z45.2 Encounter for adjustment and management of vascular access device (principal); C34.91 Malignant neoplasm of unspecified part of right bronchus or lung; F17.210 Nicotine dependence, cigarettes, uncomplicated; I12.9 Hypertensive chronic kidney disease with stage 1 through stage 4 chronic kidney disease, or unspecified chronic kidney disease; N18.9 Chronic kidney disease, unspecified; Z86.16 Personal history of COVID-19; Z92.3 Personal history of irradiation; Z80.1 Family history of malignant neoplasm of trachea, bronchus and lung
CPT/HCPCS: 36561; 00532; 71045; 77001; J2405

== ENCOUNTER → 2024-12-03 | Outpatient (CLI) | payer MEDICARE, SELFPAY ==
--- NOTE | 2024-12-03 08:06 | MRI_ITS ---
PROCEDURE: BRAIN W/WO CONTRAST 12/03/2024 REASON FOR EXAM: EVAL FOR BRAIN METASTASES TECHNIQUE: BRAIN W/WO CONTRAST Multiplanar and multisequence images were obtained. CONTRAST: Clariscan VOLUME: 12 mL COMPARISON: MRI brain with and without contrast, 06/21/2024. FINDINGS: There are multiple chronic lacunar infarctions in the periventricular white matter of both cerebral hemispheres. There is mild diffuse cerebral atrophy with concomitant ventriculomegaly. There is patchy periventricular white matter signal abnormality in both cerebral hemispheres, in the central tye, consistent with chronic ischemic white matter disease. There is a 4 mm in diameter area of subcortical white matter enhancement in the right parietal lobe, posteriorly. There is surrounding vasogenic edema. There is a normal sulcal pattern and gyral configuration. There is no evidence of acute intracranial hemorrhage or infarction. The mccurdy-white differentiation is well preserved. There is no evidence of restricted diffusion. The basilar cisterns are normal. There are normal flow voids demonstrated in the recognized intracranial vessels. The cerebellum and brainstem are unremarkable. The cerebellar pontine angles are normal. The craniovertebral junction is normal. The sella and suprasellar regions are normal. The orbits and retro-orbital regions are unremarkable. The nasal septum is midline. There is no significant paranasal sinus disease. The mastoid air cells are clear. There is normal bone marrow signal in the skull base and calvarium. MRI/Brain W/WO Contrast IMPRESSION: 1. Interval development of a small subcortical area of abnormal contrast enhan cement in the right parietal lobe, posteriorly. There is associated vasogenic edema, consistent with metastatic disease. 2. Multiple chronic lacunar infarctions in the periventricular white matter of both cerebral hemispheres. 3. Cerebral atrophy with chronic ischemic white matter disease. Reading Location: [id number]
== END | disposition home or self-care (01) ==
PROVIDERS: PCP Family Medicine; Referring Provider Student in an Organized Health Care Education/Training Program; Visit Provider Student in an Organized Health Care Education/Training Program
DX: C34.11 Malignant neoplasm of upper lobe, right bronchus or lung (principal)
CPT/HCPCS: 70553; A9575; A4216

== ENCOUNTER → 2025-01-20 | Outpatient (CLI) | payer MEDICARE, SELFPAY ==
--- NOTE | 2025-01-20 07:51 | MRI_ITS ---
PROCEDURE: BRAIN W/WO CONTRAST 01/20/2025 REASON FOR EXAM: SCLC, FOLLOW BRAIN LESION TECHNIQUE: Procedure Code: [id number] Modality: MR Procedure: BRAIN W/WO CONTRAST Multiplanar and multisequence images were obtained. CONTRAST: Clariscan VOLUME: 12 mL COMPARISON: MRI brain with and without contrast, 12/03/2024 FINDINGS: The focus of cortical contrast enhancement in the right parietal lobe, posteriorly, seen on the prior exam, has resolved. There are no new areas of abnormal contrast enhancement. There has been associated decrease in the vasogenic edema in the right parietal lobe, posteriorly. There are chronic lacunar infarctions in the periventricular white matter of both frontal lobes. There is patchy periventricular and subcortical white matter signal abnormality, consistent with chronic ischemic white matter disease. There is mild cerebral atrophy. There is a normal sulcal pattern and gyral configuration. There is no evidence of acute intracranial hemorrhage or infarction. The mccurdy-white differentiation is well preserved. There is no evidence of restricted diffusion. The ventricles and basilar cisterns are normal. There are normal flow voids demonstrated in the recognized intracranial vessels. The cerebellum and brainstem are unremarkable. The cerebellar pontine angles are normal. The craniovertebral junction is normal. The sella and suprasellar regions are normal. The orbits and retro-orbital regions are unremarkable. The nasal septum is midline. There is no significant paranasal sinus disease. The mastoid air cells are clear. There is normal bone marrow signal in the skull base and calvarium. MRI/Brain W/WO Contrast IMPRESSION: 1. Interval resolution of the focus of abnormal cortical contrast enhancement in the right parietal lobe. There has been associated decrease in the vasogenic edema in the right parietal lobe, posterio rly. 2. There are no new areas of abnormal contrast enhancement or vasogenic edema. 3. Other findings as noted, not significantly changed. Reading Location: [id number]
[2025-01-20] MEDS: 0.9 % NaCl (Sterile) Posiflush 10 mL IV (08:15)
--- NOTE | 2025-01-20 09:00 | CT_ITS ---
PROCEDURE: CT CHEST AND ABD W/ CONTRAST 01/20/2025 REASON FOR EXAM: F/U SCLC ON RX IV CONTRAST ONLY TECHNIQUE: Chest and abdomen CT with intravenous contrast. Coronal and Sagittal reconstruction series were provided. One or more dose reduction techniques were used (e.g., Automated exposure control, adjustment of the mA and/or kV according to patient size, use of iterative reconstruction technique. COMPARISON: 08/26/2024. FINDINGS: CT CHEST: Spiculated and reticular densities are noted in the right upper lobe, which could represent scarring, interstitial and airspace infiltrates, and/or possibly a neoplastic process. This appearance is not significantly changed. A nodular 7 mm focus is noted in the anterior aspect of the right upper lobe (series 6, image 45), unchanged.. Moderate centrilobular emphysematous changes are noted throughout the lungs, most pronounced in the lung apices. The heart is normal in size. The great vessels appear unremarkable. Minimal atherosclerotic calcifications. No thoracic lymphadenopathy is identified. CT ABDOMEN: The liver, gallbladder, spleen, pancreas, adrenal glands, and kidneys appear unremarkable. The visualized loops of bowel appear grossly unremarkable, without pathologically dilated loops of bowel to suggest a bowel obstruction. A few loops of nondilated small bowel contain air and may represent mild adynamic ileus. Moderate calcified and soft atherosclerotic plaque are noted within the visualized aorta and iliac arteries. Focal dilatation of the infrarenal abdominal aorta, measuring up to 2.7 cm in diameter. Of note, the pelvis was not imaged on this study. Mild degenerative changes of the visualized thoracolumbar spine. CT/CT Chest AND Abd W/ Contrast IMPRESSION: 1. Spiculated and reticular densities in the right upper lobe of the lungs cou ld represent scarring, interstitial and airspace infiltrates, and/or possibly a neoplastic process. These findings are similar to the previous study. 2. Focal ectasia of the abdominal aorta, measuring 2.7 cm in diameter, unchang ed. Reading Location: [id number]
[2025-01-20] MEDS: 0.9% Saline Lock 10 ML Syringe IV (09:15)
== END | disposition home or self-care (01) ==
PROVIDERS: PCP Family Medicine; Referring Provider Student in an Organized Health Care Education/Training Program; Visit Provider Student in an Organized Health Care Education/Training Program
DX: C34.11 Malignant neoplasm of upper lobe, right bronchus or lung (principal); C78.01 Secondary malignant neoplasm of right lung; C77.9 Secondary and unspecified malignant neoplasm of lymph node, unspecified; G93.9 Disorder of brain, unspecified
CPT/HCPCS: 70553; 71260; 74160; A9575; Q9967; A4216

== ENCOUNTER → 2025-03-06 | Outpatient (CLI) | payer MEDICARE, SELFPAY | END | disposition home or self-care (01) | LOC: LABSPEC 12:39 | PROVIDERS: PCP Family Medicine; Referring Provider Nurse Practitioner Acute Care; Visit Provider Nurse Practitioner Acute Care | DX: R50.9 Fever, unspecified (principal); R05.9 Cough, unspecified | CPT/HCPCS: 87631 ==

== ENCOUNTER → 2025-03-14 | Outpatient (CLI) | payer MEDICARE, SELFPAY ==
--- NOTE | 2025-03-14 14:51 | CT_ITS ---
PROCEDURE: CT CHEST AND ABD W/ CONTRAST 03/14/2025 REASON FOR EXAM: F/U SCLC IV CONTRAST ONLY TECHNIQUE: Chest and abdomen CT with intravenous contrast. Coronal and Sagittal reconstruction series were provided. One or more dose reduction techniques were used (e.g., Automated exposure control, adjustment of the mA and/or kV according to patient size, use of iterative reconstruction technique. PATIENT PREPARATION: Per protocol CONTRAST: Isovue-300 VOLUME: 93mL RADIATION DOSE SUMMARY: CTDlvol: 20 mGy DLP: 421 mGycm COMPARISON: January 20, 2025 FINDINGS: CT CHEST: Hardware: Right Port-A-Cath. Lymph nodes: Subcarinal lymph node is 1.3 x 2.7 cm and unchanged. Heart and Vasculature: Normal-size. No pericardial effusion. Lungs and Airways: Upper lobe emphysema. Airspace opacity, scarring and possibly soft tissue nodule in the right upper lobe. The more nodular component is central on image 41 measuring 1.7 x 1.4 cm and appears brito on today's exam. Minimal scarring central portion superior segment right lower lobe. Circumferential bronchial wall thickening and minimal bronchiectasis in the right upper lobe Pleura: No pleural effusion. No pneumothorax. CT ABDOMEN: Liver: Focal fat at the interlobar fissure. Otherwise normal. Gallbladder: Contracted gallbladder. No biliary ductal dilation. Spleen: Normal Pancreas: Normal Adrenals: Normal Kidneys: Normal Bowel: The stomach and partially imaged small and large bowel are unremarkable.. Lymph nodes: None appear enlarged Vasculature: Severe atherosclerotic plaque without aneurysm but there is mild fusiform change up to 2.7 cm with some soft plaque present as well. No change. Peritoneum / Retroperitoneum: No mass, free fluid or free air Bones: Unremarkable. CT/CT Chest AND Abd W/ Contrast IMPRESSION: 1. Emphysema 2. Airspace disease, scarring and/or neoplasia in the right upper lobe. Centr al component of the lesion is slightly more full and nodular worrisome for potential development of tumor recurrence. 3. No mass in the abdomen. Reading Location: [facility]
--- OUTSIDE RECORDS SUMMARY | 2025-03-14 14:55 | XMS RPT_ITS | CCD ---
Author Organization [facility] CliniSymd Care Team Providers Care Counselor Aid Name Role Phone Jihan PSYCHIATRY TEACHER, PSYCHIATRY TEACHER-C Lara K Primary Care Provider Unavailable Jihan PSYCHIATRY TEACHER, PSYCHIATRY TEACHER-C Lara K Referring Provider Un available Dr. Jarred Jones Attending Provider Dr. Jarred Jones Other Provider Dr. Jarred Jones Referring Provider Dr. Corey Damian Attending Provider Jihan BELTRAN, PSYCHIATRY TEACHER-C Lara K Primary Care Provider Unavailable Jihan BELTRAN, PSYCHIATRY TEACHER-C Lara K Referring Provider Un available Dr. Jarred Jones Attending Provider Dr. Jarred Jones Other Provider Dr. Jarred Jones Referring Provider Dr. Corey Damian Attending Provider Dr. Chadwick Munson Attending Provider Santo BELTRAN, PSYCHIATRY TEACHER-C Shavonne Attending Provider Dr. Sugar Ramírez Attending Provider Dr. Sugar Ramírez Other Provider Dr. Aly Gupta Attending Provider Dr. Aly Gupta Referring Provider Jihan BELTRAN, PSYCHIATRY TEACHER-C Lara K Primary Care Provider Unavailable Jihan PSYCHIATRY TEACHER, PSYCHIATRY TEACHER-C Lara K Referring Provider Un available Dr. Jarred Jones Attending Provider Dr. Chase [place] Attending Provider Santo PSYCHIATRY TEACHER, PSYCHIATRY TEACHER-C Shavonne Referring Provider Michener PSYCHIATRY TEACHER, PSYCHIATRY TEACHER-C Lara K Primary Care Provider Unavailable Michener PSYCHIATRY TEACHER, PSYCHIATRY TEACHER-C Lara K Referring Provider Un available Santo PSYCHIATRY TEACHER, PSYCHIATRY TEACHER-C Shavonne Attending Provider Dr. Chadwick Munson Attending Provider Dr. Aly Gupta Attending Provider [phone] López PSYCHIATRY TEACHER, PSYCHIATRY TEACHER-C Gaye Attending Provider Michener PSYCHIATRY TEACHER, PSYCHIATRY TEACHER-C Lara K Primary Care Provider Unavailable Michener PSYCHIATRY TEACHER, PSYCHIATRY TEACHER-C Lara K Referring Provider Un available Dr. Chadwick Munson Attending Provider Dr. Aly Gupta Attending Provider Monica Salcido [facility] Attending Provider Dr. Gabriele Guerrero Attending Provider Roof PSYCHIATRY TEACHER, PSYCHIATRY TEACHER-C Jaleel Whipple Attending Provider Michener PSYCHIATRY TEACHER, PSYCHIATRY TEACHER-C Lara K Primary Care Provider Unavailable Michener PSYCHIATRY TEACHER, PSYCHIATRY TEACHER-C Lara K Referring Provider Un available Dr. Gabriele Guerrero Referring Provider Dr. Chadwick Munson Attending Provider [phone] López PSYCHIATRY TEACHER, PSYCHIATRY TEACHER-C Gaye Referring Provider [phone] López PSYCHIATRY TEACHER, PSYCHIATRY TEACHER-C Gaye Other Provider Dr. Corey Damian Attending Provider Michener PSYCHIATRY TEACHER, PSYCHIATRY TEACHER-C Lara K Primary Care Provider Unavailable Michener PSYCHIATRY TEACHER, PSYCHIATRY TEACHER-C Lara K Referring Provider Un available Dr. Aly Gupta Attending Provider Michener PSYCHIATRY TEACHER, PSYCHIATRY TEACHER-C Lara K Primary Care Provider Unavailable López PSYCHIATRY TEACHER, PSYCHIATRY TEACHER-C Gaye Referring Provider [phone] López PSYCHIATRY TEACHER, PSYCHIATRY TEACHER-C Gaye Other Provider Dr. Corey Damian Attending Provider Dr. Aly Gupta Attending Provider Joaquínener PSYCHIATRY TEACHER, PSYCHIATRY TEACHER-C Lara K Referring Provider Un available Dr. Chadwick Munson Attending Provider Dr. Jarred Jones Attending Provider GueroDO Marce ellis M Primary Care Provider Dr. Aly Gupta Attending Provider GueroDO rhonda Marce M Primary Care Provider Jihan PSYCHIATRY TEACHER, PSYCHIATRY TEACHER-C Lara Perez Referring Provider Un available Dr. Sugar Ramírez Attending Provider Santo PSYCHIATRY TEACHER, PSYCHIATRY TEACHER-C Shavonne Attending Provider GueroDO Thony ellisistin M [...] Provider Dr. Gabriele Guerrero MD Other Provider 1([facility])[phone] Lorena Garner Attending Provider Dr. Chadwick Munson MD Attending Provider Dr. Chadwick Munson MD Referring Provider Lynda Alonso MD Referring Provider Jihan BELTRAN-CLara Primary Care Provider Un available Lynda Alonso MD Attending Provider Camilla Chen Attending Provider Leanne MCGARRY, Dr. Whipple Attending Provider Dr. Sarabjit Perdomo MD Referring Provider Mariella PSYCHIATRY TEACHER-C, Trish Attending Provider Mariella PSYCHIATRY TEACHER-C, Trish Referring Provider Provider, Ed Physician Attending Provider Fernando luciano Provider, Ed Physician Emergency Provider Fernando luciano [facility] , Dr. Odonnell Attending Provider [facility] DO, Dr. Odonnell Emergency [facility], Dr. Guerrero Attending Provider Angle DO, Dr. Guerrero Emergency Provider Camilla Chen Referring Provider Roberto MCGARRY, Dr. Hurt Attending Provider Candy VELA, Dr. Lu Attending Provider Candy DO, Dr. Lu Referring Provider Rene PSYCHIATRY TEACHER-C, Gaye Attending Provider Rene PSYCHIATRY TEACHER-C, Gaye Referring Provider Rene PSYCHIATRY TEACHER-C, Gaye Other Provider [phone] Rickie VELA, Dr. Nicole Attending Provider Celeste [...] Provider Dr. Sarabjit Perdomo MD Attending Provider Dr. Sarabjit Perdomo MD Referring Provider Yolanda MCGARRY, Dr. Suazo Attending Provider Celeste MCGARRY, Vivion Primary Care Provider Celeste MCGARRY, Chalon Primary Care Provider Celeste MCGARRY, Chalon Referring Provider Celeste MCGARRY, Lynda Attending Provider Celeste MCGARRY, Chalon Primary Care Provider Celeste MCGARRY, Chalon Primary Care Provider Celeste MCGARRY, Chalon Referring Provider Michener PSYCHIATRY TEACHER-C, Lara K Primary Care Provider Un available Darrell MCGARRY, Dr. Wooten Attending Provider Santo PSYCHIATRY TEACHER-C, Shavonne Attending Provider Dr. Sugar Ramírez MD Referring Provider Dr. Sugar Ramírez MD Other Provider Dr. Corey Damian DO Attending Provider Rene PSYCHIATRY TEACHER-CGaye Referring Provider Michandrey PSYCHIATRY TEACHER-C, Lara K Primary Care Provider Un available Michener PSYCHIATRY TEACHER-C, Lara K Primary Care Provider Un available Celeste MCGARRY, Lynda Primary Care Provider Dr. Chadwick Munson MD Attending Provider Dr. Chadwick Munson MD Referring Provider Celeste MCGARRY, Lynda Referring Provider [phone] López PSYCHIATRY TEACHER-C, Gaye Attending Provider Michener PSYCHIATRY TEACHER-C, Lara K Primary Care Provider Un available Jihan PSYCHIATRY TEACHER-C, Lara K Primary Care Provider Un available Dr. Aly Gupta DO Attending Provider Dr. Aly Gupta DO Referring Provider Joaquínener PSYCHIATRY TEACHER-C, Lara K Primary Care Provider Un available Michener PSYCHIATRY TEACHER-C, Lara K Primary Care Provider Un available Celeste MCGARRY, Vivion Primary Care Physician Celeste MCGARRY, Lynda Referring Provider Jeimy MCGARRY, Dr. Genao Attending Physician Dr. Sugar Ramírez MD Attending Physician Jeimy MCGARRY, Dr. Genao Referring Provider Santo PSYCHIATRY TEACHER-C, Shavonne Attending Physician Darrell MCGARRY, Dr. Wooten Nurse Practitioner Dr. Aly Gupta DO Attending Physician Jihan BELTRAN-C, Lara Perez Primary Care Physician U mariam Guerrero MD, Dr. Suazo Attending Physician Celeste MCGARRY, Lynda Primary Care Physician Celeste MCGARRY, Lynda Referring Provider Darrell MCGARRY, Dr. Wooten Attending Physician Dr. Chadwick Munson MD Attending Physician Jeimy MCGARRY, Dr. Genao Referring Provider Jeimy MCGARRY, Dr. Genao Nurse Practitioner Celeste MCGARRY, Lynda Primary Care Physician Celeste MCGARRY, Lynda Referring Provider Santo PSYCHIATRY TEACHER-C, Shavonne Attending Physician Jihan BELTRAN-C, Lara Perez Primary Care Physician U mariam Munson MD, Dr. Genao Referring Provider Chadwick Munson Referring Unavailable Celeste, Chalon Primary Care Unavailable Sugar Ramírez Attending Unavailable Celeste, Chalon Primary Care Unavailable Gabriele Guerrero Attending Unavailable Santo PSYCHIATRY TEACHER, Shavonne Attending Unavailable Celeste, Chalon Primary Care Unavailable Celeste, Chalon Referring Unavailable Sugar Ramírez Attending Unavailable Celeste, Chalon Primary Care Unavailable Celeste, Chalon Referring Unavailable Isckar, Michealour Referring Unavailable IscChadwick meng Attending Unavailable Celeste, Chalon Primary Care Unavailable Isckarus, Mansour Attending Unavailable Celeste, Chalon Primary Care Unavailable Celeste, Chalon Referring Unavailable Celeste, Chalon Primary Care Unavailable Santo PSYCHIATRY TEACHER, Shavonne Attending Unavailable Celeste, Chalon Referring Unavailable Celeste, Chalon Primary Care Unavailable Isckarus, Mansour Attending Unavailable Celeste, Chalon Referring Unavailable Celeste, Chalon Primary Care Unavailable López PSYCHIATRY TEACHER, Gaye Attending Unavailable Celeste, Chalon Referring Unavailable Celeste, Chalon Primary Care Unavailable López PSYCHIATRY TEACHER, Gaye Referring Unavailable López PSYCHIATRY TEACHER, Gaye Consulting Unavailable Corey Damian Attending Unavailable Celeste, Chalon Primary Care Unavailable Isckarus, Mansour Consulting Unavailable Yolanda, Gabriele Referring Unavailable Yolanda, Gabriele Attending Unavailable Yolanda, [place] Consulting Unavailable MaryanneEdgarCamilla Attending Unavailable Celeste, Chalon Referring Unavailable Celeste, Chalon Primary Care Unavailable Celeste, Chalon Primary Care Unavailable Aly Gupta Attending Unavailable Candy, Aly Referring Unavailable Celeste, Chalon Primary Care Unavailable López PSYCHIATRY TEACHER, Gaye Attending Unavailable López PSYCHIATRY TEACHER, Gaye Referring Unavailable Celeste, Chalon Primary Care Unavailable Celeste, Chalon Attending Unavailable Celeste, Chalon Referring Unavailable Celeste, Chalon Primary Care Unavailable Isckarus, Mansour Consulting Unavailable Yolanda, [place] Referring Unavailable Yolanda, Gabriele Attending Unavailable Isckarus, Mansour Referring Unavailable Celeste, Chalon Primary Care Unavailable Isckarus, Mansour Attending Unavailable Celeste, Chalon Attending Unavailable Celeste, Chalon Primary Care Unavailable Celeste, Chalon Referring Unavailable Maryanne, Camilla Referring Unavailable Celeste, Chalon Primary Care Unavailable MaryannePaolayn Attending Unavailable CandyMerritte Attending Unavailable Celeste, Chalon Primary Care Unavailable Celeste, Chalon Referring Unavailable Candy, Aly Attending Unavailable Celeste, Chalon Primary Care Unavailable Candy, Aly Referring Unavailable Celeste, Chalon Primary Care Unavailable Isckarus, Mansour Attending Unavailable Celeste, Chalon Referring Unavailable Celeste, Chalon Primary Care Unavailable Celeste, Chalon Referring Unavailable Santo PSYCHIATRY TEACHER, Shavonne Attending Unavailable Celeste, Chalon Primary Care Unavailable Blas Chi Attending Unavailabl e Sarabjit Perdomo Attending Unavailable Sarabjit Perdomo Referring Unavailable Celeste, Chalon Primary Care Unavailable Robotham, Sugar Referring Unavailable Robotham, Sugar Attending Unavailable Celeste, Chalon Primary Care Unavailable Celeste, Chalon Primary Care Unavailable Aly Gupta Attending Unavailable Candy, Aly Referring Unavailable Isckarus, Mansour Referring Unavailable Celeste, Chalon Primary Care Unavailable Isckarus, Mansour Attending Unavailable Isckarus, Mansour Attending Unavailable Celeste, Chalon Primary Care Unavailable Celeste, Chalon Referring Unavailable Isckarus, Mansour Attending Unavailable Celeste, Chalon Primary Care Unavailable Celeste, Chalon Referring Unavailable Robotham, Sugar Referring Unavailable Robotham, Sugar Consulting Unavailable Robotham, Sugar Attending Unavailable Celeste, Chalon Primary Care Unavailable Isckarus, Mansour Attending Unavailable Celeste, Chalon Primary Care Unavailable Celeste, Chalon Referring Unavailable Isckarus, Mansour Attending Unavailable Celeste, Chalon Primary Care Unavailable Celeste, Chalon Referring Unavailable Isckarus, Mansour Attending Unavailable Celeste, Chalon Primary Care Unavailable Celeste, Chalon Referring Unavailable Celeste, Chalon Primary Care Unavailable Celeste, Chalon Referring Unavailable Santo PSYCHIATRY TEACHER, Shavonne Attending Unavailable Celeste, Chalon Primary Care Unavailable Santo PSYCHIATRY TEACHER, Shavonne Attending Unavailable Celeste, Chalon Referring Unavailable Prayson, Sarabjit Referring Unavailable Celeste, Chalon Primary Care Unavailable Prayson, Sarabjit Attending Unavailable Celeste, Chalon Primary Care Unavailable Mariella PSYCHIATRY TEACHER, Trish Attending Unavailable Mariella PSYCHIATRY TEACHER, Trish Referring Unavailable Celeste, Chalon Primary Care Unavailable Aly Gupta Attending Unavailable Isckarus, Mansour Consulting Unavailable Candy, Aly Referring Unavailable Celeste, Chalon Primary Care Unavailable Yolanda, Gabriele Referring Unavailable Yolanda, [place] Attending Unavailable Ecleste, Chalon Primary Care Unavailable Celeste, Chalon Attending Unavailable Celeste, Chalon Referring Unavailable Celeste, Chalon Primary Care Unavailable SchwCesar fatima Attending Unavailable Celeste, Chalon Primary Care Unavailable Celeste, Chalon Referring Unavailable Yolanda, [place] Attending Unavailable Celeste, Chalon Primary Care Unavailable Provider, Ed Physician Attending Unavailab Aly Barba Attending Unavailable Celeste, Chalon Primary Care Unavailable Celeste, Chalon Referring Unavailable CandyMerritte Attending Unavailable Celeste, Chalon Primary Care Unavailable Candy, Aly Referring Unavailable Celeste, Chalon Primary Care Unavailable Isckarus, Mansour Attending Unavailable Isckarus, Mansour Referring Unavailable Celeste, Chalon Primary Care Unavailable Rene PSYCHIATRY TEACHER, Gaye Referring Unavailable Rene PSYCHIATRY TEACHER, Gaye Attending Unavailable Isckarus, Mansour Referring Unavailable Isckarus, Mansour Attending Unavailable Jihan PSYCHIATRY TEACHER, Lara Perez Primary Care Unavailmelanie López PSYCHIATRY TEACHER, Gaye Referring Unavailable Corey Damian Attending Unavailable Celeste, Chalon Primary Care Unavailable Celeste, Chalon Primary Care Unavailable Kiran PSYCHIATRY TEACHER, Lorena Attending Unavailable Sugar Ramírez Attending Unavailable Celeste, Chalon Primary Care Unavailable Celeste, Chalon Referring Unavailable Camilla Madden Attending Unavailable Celeste, Chalon Primary Care Unavailable Celeste, Chalon Referring Unavailable Celeste, Chalon Primary Care Unavailable lBu Mejia Attending Unavailable Celeste, Chalon Referring Unavailable Celeste, Chalon Primary Care Unavailable Santo PSYCHIATRY TEACHER, Shavonne Attending Unavailable Celeste, Chalon Referring Unavailable Isckarus, Mansour Referring Unavailable Isckarus, Mansour Attending Unavailable Celeste, Chalon Primary Care Unavailable Isckarus, Mansour Referring Unavailable Isckarus, Mansour Attending Unavailable Celeste, Chalon Primary Care Unavailable Allergies Allergy Classification Reported Allergen(s) Allergy Type Date of Onset Reaction(s) Facility (20 sources) Amoxicillin Drug Allergy 2 stomach pain [facility] (20 sources) Clavulanate Drug Allergy 2 stomach pain [facility] (3 sources) Iron Drug Allergy 3 Itching [facility] (20 sources) Sulfonamides (Antibiotic) Allergy to substance 5 Nausea [facility] (1 source) Amoxicillin Drug Allergy 5 [facility] (1 source) Clavulanate Drug Allergy 5 [facility] (1 source) DULoxetine Drug Allergy 5 [facility] (1 source) Sulfonamides (Antibiotic) Drug allergy (disorder) 5 [facility] (1 source) traMADol Drug Allergy 5 [facility] Medications Current Medications Medication Drug Class(es) Dates Sig (Normalized) Sig (Original) famotidine 20 mg oral tablet (20 sources) Histamine-2 Receptor Antagonist Start: 01-10-2025 take 1 tablet by mouth once daily Famotidine (Acid 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 (Famotidine)) 20 mg tablet Active 20 mg PO daily January 10, 2025 12:00am Complies with drug therapy Start: 01-10-2025 take 1 tablet by miguel angel th once daily Famotidine (Acid 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 (Famotidine)) 20 mg tablet Active 20 mg PO daily January 10, 2025 12:00am Complies with drug therapy Start: 10-26-2023 End: 10-16-2024 take 1 tablet by mouth at bedtime Famotidine 20 mg tablet Discontinued 20 mg PO AT BEDTIME October 26, 2023 12:00am October 16, 2024 2:35pm Start: 03-15-2022 take 1 tablet by miguel angel th once daily before mealtime Famotidine (Pepcid Ac) 10 mg tablet Active 10 MG PO DAILY March 15, 2022 12:00am lidocaine 25 mg/ml / prilocaine 25 mg/ml topical cream (20 sources) Antiarrhythmic, Amide Local Anesthetic Start: 09-30-2024 Lidocaine-Prilocaine 2.5-2.5 % cream Active 1 NMA TOPICAL ONCE as needed for port access September 30, 2024 12:00am Small cell lung cancer, right upper lobe Malignant neoplasm of upper lobe, right bronchus or lung Complies with drug therapy Start: 09-30-2024 Lidocaine-Pril ocaine 2.5-2.5 % cream Active 1 NMA TOPICAL ONCE as needed for port access September 30, 2024 12:00am Small cell lung cancer, right upper lobe Malignant neoplasm of upper lobe, right bronchus or lung Start: 09-30-2024 Lidocaine-Pril ocaine 2.5-2.5 % cream Active 1 NMA TOPICAL ONCE as needed for port access September 30, 2024 12:00am Start: 03-02-2022 End: 05-11-2023 Lidocaine-Prilocaine 2.5-2.5 % cream Discontinued 1 NMA TOPICAL ONCE as needed for port access March 02, 2022 1:00am May 11, 2023 10:03am Start: 03-02-2022 End: 05-11-2023 Lidocaine-Prilocaine Discont inued 1 APPLIC TOPICAL ONCE March 02, 2022 1:00am May 11, 2023 10:03am linaclotide 0.29 mg oral capsule (9 sources) Guanylate Cyclase-C Agonist Start: 01-07-2025 take 1 capsule by mouth once daily in the morning Linaclotide (Linzess) 290 mcg capsule Active 290 ug PO EVERY MORNING January 07, 2025 12:00am Complies with drug therapy Start: 12-17-2024 End: 01-07-2025 take 1 capsule by mouth once daily in the morning Linaclotide (Linzess) 145 mcg capsule Discontinued 145 ug PO EVERY MORNING December 17, 2024 12:00am January 07, 2025 10:06am ondansetron 8 mg disintegrating oral tablet (20 sources) Serotonin-3 Receptor Antagonist Start: 09-30-2024 take 1 tablet by mouth every eight hours as needed for nausea and vomiting Ondansetron 8 mg tablet,disintegrating Active 8 mg PO Q8H as needed for nausea and vomiting 30 2 September 30, 2024 12:00am Complies with drug therapy Start: 04-29-2024 End: 09-30-2024 take 1 tablet by mouth every eight hours as needed for nausea Ondansetron 4 mg tablet,disintegrating Discontinued 4 mg PO EVERY 8 HOURS NEEDED as needed for Nausea 10 0 April 29, 2024 1:00am September 30, 2024 3:59pm Start: 03-02-2022 End: 05-11-2023 take 1 tablet by mouth every eight hours as needed for nausea and vomiting Ondansetron 8 mg tablet,disintegrating Discontinued 8 mg PO Q8H as needed for nausea and vomiting 30 2 March 02, 2022 1:00am May 11, 2023 11:14am Small cell lung cancer, right upper lobe Malignant neoplasm of upper lobe, right bronchus or lung oxyCODONE hydrochloride 5 mg oral capsule (20 sources) Opioid Agonist Start: 12-17-2024 take 1 capsule by mouth four times daily Oxycodone 5 mg capsule Active 5 mg PO .qid December 17, 2024 8:56am Complies with drug therapy Start: 09-03-2024 End: 12-17-2024 take 1 capsule by mouth three times daily Oxycodone 5 mg capsule Discontinued 5 mg PO THREE TIMES A DAY September 03, 2024 12:00am December 17, 2024 8:57am Start: 09-03-2024 take 1 capsule by mo uth twice daily Oxycodone 5 mg capsule Active 5 mg PO TWICE A DAY September 03, 2024 12:00am Start: 06-20-2024 End: 06-21-2024 take 1-2 tablets by mouth once as needed for pain Oxycodone 5 mg tablet Discontinued 5 mg PO ONCE as needed for pain 2 1 0 June 20, 2024 June 20, 2024 1:00am June 21, 2024 1:16am Lumbar radiculopathy Radiculopathy, lumbar region take 1-2 tabs for pain, prior to MRI Start: 05-03-2022 End: 05-17-2022 take 5-10 mL by mouth every four hours as needed for pain Oxycodone 5 mg/5 mL solution Discontinued 5 mg PO Q4H as needed for pain 250 14 0 May 03, 2022 May 16, 2022 1:00am May 17, 2022 1:05am Radiation-induced esophagitis Other esophagitis without bleeding Radiation sickness, unspecified, initial encounter take 5-10 mL q4 hrs prn pain pregabalin 50 mg oral capsule (20 sources) Start: 10-08-2024 take 1 capsule by mouth at bedtime Pregabalin 100 mg capsule Active 100 mg PO AT BEDTIME October 08, 2024 12:00am Complies with drug therapy Start: 10-08-2024 take 1 capsule by [facility] once daily Pregabalin 50 mg capsule Active 50 mg PO daily October 08, 2024 12:00am Complies with drug therapy Start: 09-30-2024 End: 10-08-2024 take 1 capsule by mouth twice daily Pregabalin 75 mg capsule Discontinued 75 mg PO TWICE A DAY September 30, 2024 12:00am October 08, 2024 9:08am Start: 08-29-2024 End: 09-30-2024 take 1 capsule by mouth twice daily Pregabalin (Lyrica) 100 mg capsule Discontinued 100 mg PO TWICE A DAY August 29, 2024 12:00am September 30, 2024 1:27pm Completed/Discontinued Medications Medication Drug Class(es) Dates Sig (Normalized) Sig (Original) acetaminophen 325 mg / HYDROcodone bitartrate 5 mg oral tablet (20 sources) Opioid Agonist Start: 05-09-2024 End: 06-20-2024 Hydrocodone-Acetam inophen 5-325 mg tablet Discontinued {tbl} PO as needed 0 May 09, 2024 1:00am June 20, 2024 11:26am acetaminophen 325 mg / oxyCODONE hydrochloride 5 mg oral tablet (20 sources) Opioid Agonist Start: 08-29-2024 End: 09-24-2024 Oxycodone-Acetamin ophen (Percocet) 5-325 mg tablet Discontinued 1 {tbl} PO TWICE A DAY as needed for pain 0 August 29, 2024 12:00am September 24, 2024 [...] 21, 2017 12:00am October 28, 2022 9:07am amoxicillin 875 mg oral tablet (6 sources) Penicillin-class Antibacterial Start: 12-09-2024 End: 12-17-2024 take 1 tablet by mouth twice daily Amoxicillin 875 mg tablet Discontinued 875 mg PO TWICE A DAY 14 0 December 09, 2024 12:00am December 17, 2024 8:56am Urinary tract infection Urinary tract infection, site not specified atorvastatin 20 mg oral tablet (20 sources) HMG-CoA Reductase Inhibitor Start: 02-16-2024 End: 09-30-2024 take 1 tablet by mouth once daily Atorvastatin (Lipitor) 20 mg tablet Discontinued 20 mg PO daily 60 3 February 16, 2024 12:00am September 30, 2024 3:07pm On Hold: Ordered baclofen 5 mg oral tablet (20 sources) gamma-Aminobutyric Acid-ergic Agonist Start: 05-09-2024 End: 09-30-2024 take 1 tablet by mouth three times daily as needed for muscle spasms Baclofen 5 mg tablet Discontinued 5 mg PO 3 times daily as needed for muscle spasm August 29, 2024 12:06pm September 30, 2024 3:07pm 24 hr dilTIAZem hydrochloride 120 mg extended release oral capsule (20 sources) Calcium Channel Melida Start: 06-23-2023 End: 06-29-2023 take 1 capsule by mouth once daily Diltiazem Hcl 120 mg capsule,extended release 24hr Discontinued 120 mg PO DAILY 16 03June 23, 2023 1:00am June 29, 2023 2:08pm Dose decreased for patient to try Start: 06-16-2023 End: 06-23-2023 take 1 capsule by mouth once daily Diltiazem Hcl 180 mg capsule,extended release 24hr Discontinued 180 mg PO DAILY June 16, 2023 1:00am June 23, 2023 12:05pm gabapentin 300 mg oral capsule (20 sources) Anti-epileptic Agent Start: 05-21-2024 End: 08-29-2024 [...] oral tablet (20 sources) Angiotensin 2 Receptor Melida Start: 11-21-2017 End: 10-28-2022 take 1 tablet [...] Magic Mouth Wash (Bmx) 180 mL suspension (20 sources) Start: 12-04-2024 End: 01-23-2025 Magic Mouth Wash (Bmx) 180 m L suspension Discontinued 15 mL BUCCAL EVERY 6 HOURS NEEDED 180 December 04, 2024 12:00am January 23, 2025 1:22pm pain diphenhydramine 12.5 mg/5 mL oral liquid 60 mL; aluminum-mag hydroxide-simethicone 400 mg-400 mg-40 mg/5 mL oral susp 60 mL; Lidocaine Viscous 2 % mucosal solution 60 mL; Per 180 mL Start: 12-04-2024 Magic Mouth Wa sh (Bmx) 180 mL suspension Active 15 mL BUCCAL EVERY 6 HOURS NEEDED 180 December 04, 2024 12:00am pain diphenhydramine 12.5 mg/5 mL oral liquid 60 mL; aluminum-mag hydroxide-simethicone 400 mg-400 mg-40 mg/5 mL oral susp 60 mL; Lidocaine Viscous 2 % mucosal solution 60 mL; Per 180 mL Complies with drug therapy Start: 12-04-2024 Magic Mouth Wa sh (Bmx) 180 mL suspension Active 15 mL BUCCAL EVERY 6 HOURS NEEDED 180 December 04, 2024 12:00am pain diphenhydramine 12.5 mg/5 mL oral liquid 60 mL; aluminum-mag hydroxide-simethicone 400 mg-400 mg-40 mg/5 mL oral susp 60 mL; Lidocaine Viscous 2 % mucosal solution 60 mL; Per 180 mL Start: 12-04-2024 End: 12-04-2024 Magic Mouth Wash (Bmx) 180 m L suspension Discontinued 10 mL PO .COMPLEX as needed for mouth pain 180 December 04, 2024 12:00am December 04, 2024 2:07pm 10 mL orally Q6h PRN; diphenhydramine 12.5 mg/5 mL oral liquid 60 mL; aluminum-mag hydroxide-simethicone 400 mg-400 mg-40 mg/5 mL oral susp 60 mL; Lidocaine Viscous 2 % mucosal solution 60 mL; Per 180 mL Start: 03-15-2022 End: 05-16-2022 Magic Mouth Wash (Bmx) 180 m L suspension Discontinued 15 mL PO .qid as needed for pain 180 March 15, 2022 1:00am May 16, 2022 1:00pm Small cell lung cancer, right upper lobe Malignant neoplasm of upper lobe, right bronchus or lung diphenhydramine 12.5 mg/5 mL oral liquid 60 mL; aluminum-mag hydroxide-simethicone 400 mg-400 mg-40 mg/5 mL oral susp 60 mL; Lidocaine Viscous 2 % mucosal solution 60 mL; Per 180 mL Start: 03-15-2022 End: 05-16-2022 Magic Mouth Wash (Bmx) 180 m L suspension Discontinued 15 mL PO .qid as needed for pain 180 March 15, 2022 1:00am May 16, 2022 1:00pm diphenhydramine 12.5 mg/5 mL oral liquid 60 mL; aluminum-mag hydroxide-simethicone 400 mg-400 mg-40 mg/5 mL oral susp 60 mL; Lidocaine Viscous 2 % mucosal solution 60 mL; Per 180 mL magnesium citrate 100 mg oral tablet (20 sources) Start: 11-30-2023 End: 01-10-2025 take 1 capsule by mouth once daily Magnesium Citrate 100 mg capsule Discontinued 100 mg PO DAILY November 30, 2023 12:00am January 10, 2025 9:10am metoclopramide 10 mg oral tablet (20 sources) [...] extended release oral tablet (20 sources) beta-Adrenergic Melida Start: 05-21-2024 End: 05-21-2024 take 1 tablet by mouth once daily Metoprolol Succinate 50 mg tablet extended release 24 hr Discontinued 50 mg PO DAILY 90 May 21, 2024 2:09pm May 21, 2024 2:11pm Start: 05-07-2024 End: 05-21-2024 Metoprolol Succinate 25 mg t ablet extended release 24 hr Discontinued 50 mg PO DAILY 90 May 07, 2024 3:03pm May 21, 2024 2:10pm Start: 06-29-2023 End: 05-07-2024 take 1 tablet by mouth once daily Metoprolol Succinate 25 mg tablet extended release 24 hr Discontinued 25 mg PO DAILY 90 June 29, 2023 12:00am May 07, 2024 [...] 24 hr Discontinued 12.5 mg PO DAILY 90 May 04, 2023 1:08pm June 15, 2023 12:31pm Start: 10-28-2022 End: 05-04-2023 take 1 tablet by mouth once daily Metoprolol Succinate (Toprol Xl) 25 mg tablet extended release 24 hr Discontinued 25 mg PO DAILY 90 April 02, 2023 10:19am May 04, 2023 1:08pm Start: 09-27-2022 End: 10-28-2022 Metoprolol Tartrate 25 mg ta blet Discontinued 12.5 mg PO TWICE A DAY 90 0 September 27, 2022 12:00am October 28, 2022 9:07am Start: 09-27-2022 End: 10-28-2022 take 12.5 mg by mouth twice daily Metoprolol Tartrate Discontinued 12.5 MG PO TWICE A DAY 90 September 27, 2022 12:00am October 28, 2022 9:07am omeprazole 20 mg delayed release oral capsule (20 sources) Proton Pump Inhibitor Start: 10-16-2024 End: 01-10-2025 take 1 capsule by mouth once daily Omeprazole 20 mg capsule,delayed release(DR/EC) Discontinued 20 mg PO daily October 16, 2024 12:00am January 10, 2025 9:09am Start: 03-02-2022 End: 03-03-2022 take 1 capsule by mouth once daily Omeprazole 40 mg capsule,delayed release(DR/EC) Discontinued 40 mg PO DAILY March 02, 2022 1:00am March 03, 2022 2:52pm Start: 05-21-2018 End: 02-02-2022 take 1 capsule by mouth once daily Omeprazole 20 MG capsule Discontinued 20 mg PO DAILY 30 0 May 21, 2018 1:00am February 02, 2022 10:25am pantoprazole 40 mg delayed release oral tablet (20 sources) Proton Pump Inhibitor Start: 06-27-2022 End: 02-15-2023 Pantoprazole 40 mg tablet,delayed release (DR/EC) Discontinued 0 .ROUTE .COMPLEX 90 2 June 27, 2022 7:15am February 15, 2023 7:50am TAKE 1 TABLET DAILY Start: 03-03-2022 End: 06-27-2022 take 1 tablet by mouth twice daily, then take 1 tablet by mouth once daily Pantoprazole 40 mg tablet,delayed release (DR/EC) Discontinued 40 mg PO DAILY 37 4 March 03, 2022 1:00am June 27, 2022 7:16am Take 1 tablet twice daily x1 week then changed to 1 tablet daily. All refills will just be 1 tablet daily. predniSONE 20 mg oral tablet (20 sources) Start: 04-18-2024 End: 05-09-2024 take 1 [...] HOURS as needed for nausea and vomiting 30 2 March 02, 2022 1:00am June 16, 2023 12:21pm Chemotherapy-induce d nausea and vomiting Small cell lung cancer, right upper lobe Nausea with vomiting, unspecified Adverse effect of antineoplastic and immunosuppressive drugs, initial encounter Malignant neoplasm of upper lobe, right bronchus or lung RABEprazole sodium 20 mg delayed release oral tablet (20 sources) Proton Pump Inhibitor Start: 02-03-2022 End: 03-02-2022 take 1 tablet by mouth once daily Rabeprazole 20 mg tablet,delayed release (DR/EC) Discontinued 20 mg PO DAILY 1 February 03, 2022 12:00am March 02, 2022 12:32pm sennosides, mcc 8.6 mg oral tablet (20 sources) Start: [...] 12:32pm traMADol hydrochloride 50 mg oral tablet (20 sources) Opioid Agonist Start: 04-18-2024 End: 05-09-2024 take 1 tablet by mouth once daily Tramadol 50 mg tablet Discontinued 50 mg PO daily April 18, 2024 1:00am May 09, 2024 11:00am Problems Active Problems Problem Classification Problem Date Documented Da te Episodic/Chronic Abdominal pain (20 sources) Abdominal pain; Translations: [Unspecified abdominal pain] 05-07-2024 Episodic Acute and unspecified renal failure (20 sources) Prerenal azotemia; Translations: [Unspecified kidney failure] 05-03-2022 Chronic Administrative/social admission (20 sources) Patient encounter status; Translations: [Counseling, unspecified] Episodic Cancer of bronchus; lung (20 sources) Small cell carcinoma of lung; Translations: [Malignant neoplasm of upper lobe, right bronchus or lung] Onset: Chronic Cardiac dysrhythmias (20 sources) Tachycardia; Translations: [Tachycardia, unspecified] Onset: 5 04-19-2022 Episodic Chronic kidney disease (20 sources) Chronic renal [...] unspecified] 05-10-2022 Episodic Disorders of lipid metabolism (1 source) Hyperlipidemia, unspecified; Translations: [Hyperlipidemia, unspecified] Onset: Chronic [...] (20 sources) Dehydration; Translations: [Dehydration] 04-07-2022 Episodic Genitourinary symptoms and ill-defined conditions (6 sources) Urine looks dark; Translations: [Other abnormal findings in urine] 12-06-2024 Episodic Lymphadenitis (12 sources) Mediastinal lymphadenopathy; Translations: [Localized enlarged lymph nodes] Episodic Maintenance chemotherapy; radiotherapy (20 sources) Patient encounter status; Translations: [Encounter for antineoplastic chemotherapy] Onset: 05-24-2022 Chronic Nonspecific chest pain (20 sources) Chest pain; Translations: [Chest pain, unspecified] 02-08-2022 Episodic Other acquired deformities (20 sources) Scoliosis deformity of spine; Translations: [Scoliosis, unspecified] 04-18-2024 Chronic Other aftercare (1 source) Encounter for therapeutic drug level monitoring; Translations: [Encounter for therapeutic drug level monitoring] Onset: Episodic Other bone disease and musculoskeletal deformities (20 sources) Segmental and somatic dysfunction; Translations: [Segmental and somatic dysfunction of cervical region] 11-29-2017 Episodic Other bone disease and musculoskeletal deformities (20 sources) Clavicle pain; Translations: [Other specified disorders of bone, shoulder] 11-21-2017 Episodic Other gastrointestinal disorders (20 sources) Constipation; [...] respiratory abnormalities] Episodic Other lower respiratory disease (8 sources) Other nonspecific abnormal finding of lung field; Translations: [Swelling, mass, or lump in chest] Episodic Other lower respiratory disease (20 sources) Nodule of lung; Translations: [Solitary pulmonary nodule] 11-22-2023 Episodic Other nervous system disorders (6 sources) Lesion of brain; Translations: [Disorder of brain, unspecified] 12-05-2024 Chronic Other skin disorders (17 sources) Vitiligo; Translations: [Vitiligo] 09-11-2024 Episodic Other skin disorders (1 source) Eruption Episodic Other upper respiratory infections (1 source) Chronic sinusitis, unspecified; Translations: [Chronic sinusitis, unspecified] Onset: 5 Chronic Secondary malignancies (20 sources) Regional lymph node metastasis present ; Translations: [Secondary and unspecified malignant neoplasm of lymph node, unspecified] 02-28-2022 Chronic Secondary malignancies (20 sources) Secondary and unspecified malignant neoplasm of lymph node, unspecified; Translations: [Secondary and unspecified malignant neoplasm of lymph nodes, site unspecified] Onset: 5 Chronic Secondary malignancies (20 sources) Secondary malignant neoplasm of lung; Translations: [Secondary malignant neoplasm of unspecified lung] 09-24-2024 Chronic Secondary malignancies (2 sources) Secondary malignant neoplasm of right lung; Translations: [Secondary malignant neoplasm of right lung] Onset: Chronic Spondylosis; intervertebral disc disorders; other back problems (20 sources) Inflammation of sacroiliac joint; Translations: [Sacroiliitis, not elsewhere classified] 05-21-2024 Chronic Substance-related disorders (20 sources) Smoker; Translations: [Nicotine dependence, unspecified, uncomplicated] Onset: 5 08-28-2024 Chronic Unclassified (4 sources) M54.16 - Radiculopathy, lumbar region Unclassified (12 sources) C78.01 - Secondary malignant neoplasm of right lung,C34.11 - Malignant neoplasm of upper lobe, right bronchus or lung,C34.91 - Malignant neoplasm of unspecified part of right bronchus or lung Unclassified (12 sources) C78.01 - Secondary malignant neoplasm of right lung,C34.91 - Malignant neoplasm of unspecified part of right bronchus or lung,C34.11 - Malignant neoplasm of upper lobe, right bronchus or lung Unclassified (10 sources) Malignant neoplasm metastatic to lung Unclassified (10 sources) Small cell lung cancer, right upper lobe Unclassified (10 sources) Local recurrence of malignant neoplasm of lung Unclassified (1 source) R21 - Rash and other nonspecific skin eruption Unclassified (1 source) Low back pain, unspecified; Translations: [Low back pain, unspecified] Onset: 5 Past or Other Problems Problem Classification Problem Date Documented Date Episodic/Chronic Malaise and fatigue (20 sources) Asthenia; Translations: [Weakness] Onset: 11-05-2024 06-15-2022 Episodic Other aftercare (20 sources) Encounter for adjustment and management of vascular access device; Translations: [Fitting and adjustment, other device] Onset: 10-09-2024 Episodic Other connective tissue disease (1 source) Other symptoms and signs involving the musculoskeletal system; Translations: [Other symptoms and signs involving the musculoskeletal system] Onset: 07-31-2024 Episodic Other lower respiratory disease (2 sources) Solitary pulmonary nodule; Translations: [Solitary pulmonary nodule] Onset: 06-24-2024 Episodic Other non-traumatic joint disorders (1 source) Pain in right hip; Translations: [Pain in right hip] Onset: 06-05-2024 Episodic Spondylosis; intervertebral disc disorders; other back problems (20 sources) Low back pain; Translations: [Low back pain] Onset: 05-27-2024 06-07-2022 Episodic Unclassified (20 sources) history of left eye surgery 11-04-2021 Urinary tract infections (7 sources) Urinary tract infectious disease; Translations: [Urinary tract infection, site not specified] Onset: 05-20-2024 12-09-2024 Episodic Results Test Name Value Interpretation Reference Range Facility CBC W/Diff, Automatedon 11-0 Absolute Lymph 1.59 X10 3/uL Normal 0.83-4.51 [facility] Comment on above: Performed By: #### L 506.0400, L100.0100, L501.9520, L500.4050, L504.2610, L501.5200, L501.2300 ####[facility] [address] [place], [place], [id number] Absolute Neut 6.8 X10 3/uL Normal 2.0-7.7 [facility] Comment on above: Performed By: #### L 506.0400, L100.0100, L501.9520, L500.4050, L504.2610, L501.5200, L501.2300 ####[facility] [address] [place], [address] Basophils/100 WBC (Bld) 0.6 % Normal 0-1 [facility] Comment on above: Performed By: #### L 506.0400, L100.0100, L501.9520, L500.4050, L504.2610, L501.5200, L501.2300 ####[facility] [address] [place], [address] Eosinophils/100 WBC (Bld) 1.4 % Normal 0-5 [facility] Comment on above: Performed By: #### L 506.0400, L100.0100, L501.9520, L500.4050, L504.2610, L501.5200, L501.2300 ####[facility] [address] [place], [address] Erythrocyte distribution width (RBC) [Ratio] 13.9 % Normal 11.6-14.6 [facility] Comment on above: Performed By: #### L 506.0400, L100.0100, L501.9520, L500.4050, L504.2610, L501.5200, L501.2300 ####[facility] [address] [place], [address] Hematocrit (Bld) [Volume fraction] 43.3 % Normal 37-47 [facility] Comment on above: Performed By: #### L 506.0400, L100.0100, L501.9520, L500.4050, L504.2610, L501.5200, L501.2300 ####[facility] [address] [place], [address] Hemoglobin (Bld) [Mass/Vol] 14.2 g/dL Normal 12.0-15.0 [facility] Comment on above: Performed By: #### L 506.0400, L100.0100, L501.9520, L500.4050, L504.2610, L501.5200, L501.2300 ####[facility] [address] [place], [address] IG% 0.400 Normal 0.0-0.9 [facility] Comment on above: Result Comment: IG% - Immature Granulocytes (promyelocytes, myelocytes andmetamyelocytes) > 1% indicates that a LEFT SHIFT is Present. Performed By: #### L 506.0400, L100.0100, L501.9520, L500.4050, L504.2610, L501.5200, L501.2300 ####[facility] [address] [place], [address] Lymphocytes/100 WBC (Bld) 17.1 % Low 19-41 [facility] Comment on above: Performed By: #### L 506.0400, L100.0100, L501.9520, L500.4050, L504.2610, L501.5200, L501.2300 ####[facility] [address] [place], [address] MCH (RBC) [Entitic mass] 30.9 pg Normal 27.0-32.0 [facility] Comment on above: Performed By: #### L 506.0400, L100.0100, L501.9520, L500.4050, L504.2610, L501.5200, L501.2300 ####[facility] [address] [place], [address] MCHC (RBC) [Mass/Vol] 32.8 g/dL Normal 32-36 [facility] Comment on above: Performed By: #### L 506.0400, L100.0100, L501.9520, L500.4050, L504.2610, L501.5200, L501.2300 ####[facility] [address] [place], [address] MCV (RBC) [Entitic vol] 94.3 fL Normal 81-99 [facility] Comment on above: Performed By: #### L 506.0400, L100.0100, L501.9520, L500.4050, L504.2610, L501.5200, L501.2300 ####[facility] [address] [place], [address] Monocytes/100 WBC (Bld) 7.1 % Normal 0-10 [facility] Comment on above: Performed By: #### L 506.0400, L100.0100, L501.9520, L500.4050, L504.2610, L501.5200, L501.2300 ####[facility] [address] [place], [address] Neutrophils/100 WBC (Bld) 73.4 % High 47-70 [facility] Comment on above: Performed By: #### L 506.0400, L100.0100, L501.9520, L500.4050, L504.2610, L501.5200, L501.2300 ####[facility] [address] [place], [address] Nucleated RBC (Bld) [#/Vol] 0 10*3/uL Normal 0-5 [facility] Comment on above: Performed By: #### L 506.0400, L100.0100, L501.9520, L500.4050, L504.2610, L501.5200, L501.2300 ####[facility] [address] [place], [address] Platelet mean volume (Bld) [Entitic vol] 8.4 fL Normal 6.2-12.0 [facility] Comment on above: Performed By: #### L 506.0400, L100.0100, L501.9520, L500.4050, L504.2610, L501.5200, L501.2300 ####[facility] [address] [place], [address] Platelets (Bld) [#/Vol] 157 10*3/uL Normal 150-450 [facility] Comment on above: Performed By: #### L 506.0400, L100.0100, L501.9520, L500.4050, L504.2610, L501.5200, L501.2300 ####[facility] [address] [place], [address] RBC (Bld) [#/Vol] 4.59 10*6/uL Normal 4.2-5.4 [facility] Comment on above: Performed By: #### L 506.0400, L100.0100, L501.9520, L500.4050, L504.2610, L501.5200, L501.2300 ####[facility] [address] [place], [address] RDW SD 48.6 fl High 35.1-43.9 [facility] Comment on above: Performed By: #### L 506.0400, L100.0100, L501.9520, L500.4050, L504.2610, L501.5200, L501.2300 ####[facility] [address] [place], [address] WBC (Bld) [#/Vol] 9.3 10*3/uL Normal 4.4-11.0 [facility] Comment on above: Performed By: #### L 506.0400, L100.0100, L501.9520, L500.4050, L504.2610, L501.5200, L501.2300 ####[facility] [address] [place], [address] Comprehensive Metabolic Prof ilon 02-18-2025 Albumin [Mass/Vol] 4.3 g/dL Normal 3.4-4.8 [facility] Comment on above: Performed By: #### L 506.0400, L100.0100, L501.9520, L500.4050, L504.2610, L501.5200, L501.2300 ####[facility] [address] [place], [address] Albumin/Globulin [Mass ratio] 1.8 {ratio} Normal 0.9-2.4 [facility] Comment on above: Performed By: #### L 506.0400, L100.0100, L501.9520, L500.4050, L504.2610, L501.5200, L501.2300 ####[facility] [address] [place], [address] ALK PHOS 72 U/L Normal 35-104 [facility] Comment on above: Performed By: #### L 506.0400, L100.0100, L501.9520, L500.4050, L504.2610, L501.5200, L501.2300 ####[facility] [address] [place], [address] ALT [Catalytic activity/Vol] 13 U/L Normal <=34 [facility] Comment on above: Performed By: #### L 506.0400, L100.0100, L501.9520, L500.4050, L504.2610, L501.5200, L501.2300 ####[facility] [address] [place], [address] AST [Catalytic activity/Vol] 21 U/L Normal <=31 [facility] Comment on above: Performed By: #### L 506.0400, L100.0100, L501.9520, L500.4050, L504.2610, L501.5200, L501.2300 ####[facility] [address] [place], [address] Bilirubin [Mass/Vol] 0.62 mg/dL Normal 0.00-1.30 [facility] Comment on above: Performed By: #### L 506.0400, L100.0100, L501.9520, L500.4050, L504.2610, L501.5200, L501.2300 ####[facility] [address] [place], [address] BUN/CRE 17.9 RATIO Normal 10-20 [facility] Comment on above: Performed By: #### L 506.0400, L100.0100, L501.9520, L500.4050, L504.2610, L501.5200, L501.2300 ####[facility] [address] [place], [address] Calcium [Mass/Vol] 9.1 mg/dL Normal 7.6-11.0 [facility] Comment on above: Performed By: #### L 506.0400, L100.0100, L501.9520, L500.4050, L504.2610, L501.5200, L501.2300 ####[facility] [address] [place], [address] Chloride [Moles/Vol] 103 mmol/L Normal 98-108 [facility] Comment on above: Performed By: #### L 506.0400, L100.0100, L501.9520, L500.4050, L504.2610, L501.5200, L501.2300 ####[facility] [address] [place], [address] CO2 [Moles/Vol] 23.4 mmol/L Normal 21.0-32.0 [facility] Comment on above: Performed By: #### L 506.0400, L100.0100, L501.9520, L500.4050, L504.2610, L501.5200, L501.2300 ####[facility] [address] [place], [address] Creatinine [Mass/Vol] 0.83 mg/dL Normal 0.70-1.20 [facility] Comment on above: Performed By: #### L 506.0400, L100.0100, L501.9520, L500.4050, L504.2610, L501.5200, L501.2300 ####[facility] [address] [place], [place], [phone] ECRCL 59.18 ml/min Normal 50-250 [facility] Comment on above: Performed By: #### L 506.0400, L100.0100, L501.9520, L500.4050, L504.2610, L501.5200, L501.2300 ####[facility] [address] [place], [address](421) GAP 10 Normal 5-15 [facility] Comment on above: Performed By: #### L 506.0400, L100.0100, L501.9520, L500.4050, L504.2610, L501.5200, L501.2300 ####[facility] [address] [place], [place], [phone](860) GFR/1.73 sq M.predicted among non-blacks MDRD (S/P/Bld) [Vol rate/Area] 78 mL/min/{1.73_m2} Normal >60 [facility] Comment on above: Result Comment: mL/m in/1.73m2 CKD-EPI Creatinine Equation (2020) Performed By: #### L 506.0400, L100.0100, L501.9520, L500.4050, L504.2610, L501.5200, L501.2300 ####[facility] [address] [place], [place], [phone] Globulin (S) [Mass/Vol] 2.4 g/dL Normal 2.2-4.2 [facility] Comment on above: Performed By: #### L 506.0400, L100.0100, L501.9520, L500.4050, L504.2610, L501.5200, L501.2300 ####[facility] [address] [place], [address] Glucose [Mass/Vol] 125 mg/dL High 70-99 [facility] Comment on above: Performed By: #### L 506.0400, L100.0100, L501.9520, L500.4050, L504.2610, L501.5200, L501.2300 ####[facility] [address] [place], [address] Potassium [Moles/Vol] 4.0 mmol/L Normal 3.3-5.1 [facility] Comment on above: Performed By: #### L 506.0400, L100.0100, L501.9520, L500.4050, L504.2610, L501.5200, L501.2300 ####[facility] [address] [place], [address] Sodium [Moles/Vol] 137 mmol/L Normal 133-145 [facility] Comment on above: Performed By: #### L 506.0400, L100.0100, L501.9520, L500.4050, L504.2610, L501.5200, L501.2300 ####[facility] [address] [place], [address] T PROT 6.7 g/dL Normal 5.9-8.4 [facility] Comment on above: Performed By: #### L 506.0400, L100.0100, L501.9520, L500.4050, L504.2610, L501.5200, L501.2300 ####[facility] [address] [place], [address] Urea nitrogen [Mass/Vol] 15 mg/dL Normal 4-19 [facility] Comment on above: Performed By: #### L 506.0400, L100.0100, L501.9520, L500.4050, L504.2610, L501.5200, L501.2300 ####[facility] [address] [place], [address] LDHon 02-18-2025 LDH 177 U/L Normal 84-246 [facility] Comment on above: Order Comment: 1 Performed By: #### L 506.0400, L100.0100, L501.9520, L500.4050, L504.2610, L501.5200, L501.2300 ####[facility] [address] [place], [address] Magnesiumon 02-18-2025 Magnesium [Mass/Vol] 2.2 mg/dL Normal 1.5-2.2 [facility] Comment on above: Performed By: #### L 506.0400, L100.0100, L501.9520, L500.4050, L504.2610, L501.5200, L501.2300 ####[facility] [address] [place], [address] Oncology Visit Reporton 110 Oncology Visit Report Normal [facility] Phosphoruson 02-18-2025 Phosphate [Mass/Vol] 3.6 mg/dL Normal 2.7-4.5 [facility] Comment on above: Performed By: #### L 506.0400, L100.0100, L501.9520, L500.4050, L504.2610, L501.5200, L501.2300 ####[facility] [address] [place], [address] T4 Free Directon 02-18-2025 T4 FREE DIRECT 1.00 ng/dL Normal 0.76-1.46 [facility] Comment on above: Performed By: #### L 506.0400, L100.0100, L501.9520, L500.4050, L504.2610, L501.5200, L501.2300 ####[facility] [address] [place], [address] Thyroid Stim Hormone (TSH)on 02-18-2025 TSH 2.570 uIU/mL Normal 0.300-4.200 [facility] Comment on above: Performed By: #### L 506.0400, L100.0100, L501.9520, L500.4050, L504.2610, L501.5200, L501.2300 ####[facility] [address] [place], [place], [phone] Absolute lymphocyte countOrd ered By: Chadwick uMnson on 01-28-2025 Lymphocytes Auto (Unsp spec) [#/Vol] 1.31 10*3/uL 0.83-4.51 [facility] Absolute neutrophil countOrd ered By: [facility] Munson on 01-28-2025 Neutrophils (Bld) [#/Vol] 4.6 10*3/uL 2.0-7.7 [facility] Anion gap in Serum or Plasma Ordered By: Chadwick Munson on 01-28-2025 Anion gap [Moles/Vol] 9 mmol/L 08-29 [facility] Automated lymphocyte count a s percentage of total leukocytesOrdered By: Chadwick Munson on 01-28-2025 Lymphocytes/100 WBC Auto (Unsp spec) 17.9 % Low - [facility] BUN/creatinine ratioOrdered By: [facility] on 01-28-2025 Urea nitrogen/Creatinine [Mass ratio] 14.0 mg/mg 02-03 [facility] Basophil percentageOrdered B y: Chadwick Munson on 01-28-2025 Basophils/100 WBC (Bld) 1.2 % High 0- [facility] Bilirubin, totalOrdered By: [facility] Mun[facility] on 01-28-2025 Bilirubin [Mass/Vol] 0.73 mg/dL 0.00-1.30 [facility] CBC W/Diff, Automatedon 01-15 Absolute Lymph 1.31 X10 3/uL Normal 0.83-4.51 [facility] Comment on above: Performed By: #### L 501.9520, L501.2300, L504.2610, L506.0400, L100.0100, L500.4050, L501.5200 ####[facility] [address] [place], [address] Absolute Neut 4.6 X10 3/uL Normal 2.0-7.7 [facility] Comment on above: Performed By: #### L 501.9520, L501.2300, L504.2610, L506.0400, L100.0100, L500.4050, L501.5200 ####[facility] [address] [place], [address] Basophils/100 WBC (Bld) 1.2 % High 0-1 [facility] Comment on above: Performed By: #### L 501.9520, L501.2300, L504.2610, L506.0400, L100.0100, L500.4050, L501.5200 ####[facility] [address] [place], [address] Eosinophils/100 WBC (Bld) 4.1 % Normal 0-5 [facility] Comment on above: Performed By: #### L 501.9520, L501.2300, L504.2610, L506.0400, L100.0100, L500.4050, L501.5200 ####[facility] [address] [place], [address] Erythrocyte distribution width (RBC) [Ratio] 15.8 % High 11.6-14.6 [facility] Comment on above: Performed By: #### L 501.9520, L501.2300, L504.2610, L506.0400, L100.0100, L500.4050, L501.5200 ####[facility] [address] [place], [address] Hematocrit (Bld) [Volume fraction] 36.2 % Low 37-47 [facility] Comment on above: Performed By: #### L 501.9520, L501.2300, L504.2610, L506.0400, L100.0100, L500.4050, L501.5200 ####[facility] [address] [place], [address] Hemoglobin (Bld) [Mass/Vol] 12.0 g/dL Normal 12.0-15.0 [facility] Comment on above: Performed By: #### L 501.9520, L501.2300, L504.2610, L506.0400, L100.0100, L500.4050, L501.5200 ####[facility] [address] [place], [address] IG% 0.300 Normal 0.0-0.9 [facility] Comment on above: Result Comment: IG% - Immature Granulocytes (promyelocytes, myelocytes andmetamyelocytes) > 1% indicates that a LEFT SHIFT is Present. Performed By: #### L 501.9520, L501.2300, L504.2610, L506.0400, L100.0100, L500.4050, L501.5200 ####[facility] [address] [place], [address] Lymphocytes/100 WBC (Bld) 17.9 % Low 19-41 [facility] Comment on above: Performed By: #### L 501.9520, L501.2300, L504.2610, L506.0400, L100.0100, L500.4050, L501.5200 ####[facility] [address] [place], [address] MCH (RBC) [Entitic mass] 32.3 pg High 27.0-32.0 [facility] Comment on above: Performed By: #### L 501.9520, L501.2300, L504.2610, L506.0400, L100.0100, L500.4050, L501.5200 ####[facility] [address] [place], [address] MCHC (RBC) [Mass/Vol] 33.1 g/dL Normal 32-36 [facility] Comment on above: Performed By: #### L 501.9520, L501.2300, L504.2610, L506.0400, L100.0100, L500.4050, L501.5200 ####[facility] [address] [place], [address] MCV (RBC) [Entitic vol] 97.6 fL Normal 81-99 [facility] Comment on above: Performed By: #### L 501.9520, L501.2300, L504.2610, L506.0400, L100.0100, L500.4050, L501.5200 ####[facility] [address] [place], [address] Monocytes/100 WBC (Bld) 13.8 % High 0-10 [facility] Comment on above: Performed By: #### L 501.9520, L501.2300, L504.2610, L506.0400, L100.0100, L500.4050, L501.5200 ####[facility] [address] [place], [address] Neutrophils/100 WBC (Bld) 62.7 % Normal 47-70 [facility] Comment on above: Performed By: #### L 501.9520, L501.2300, L504.2610, L506.0400, L100.0100, L500.4050, L501.5200 ####[facility] [address] [place], [address] Nucleated RBC (Bld) [#/Vol] 0 10*3/uL Normal 0-5 [facility] Comment on above: Performed By: #### L 501.9520, L501.2300, L504.2610, L506.0400, L100.0100, L500.4050, L501.5200 ####[facility] [address] [place], [address] Platelet mean volume (Bld) [Entitic vol] 8.9 fL Normal 6.2-12.0 [facility] Comment on above: Performed By: #### L 501.9520, L501.2300, L504.2610, L506.0400, L100.0100, L500.4050, L501.5200 ####[facility] [address] [place], [address] Platelets (Bld) [#/Vol] 159 10*3/uL Normal 150-450 [facility] Comment on above: Performed By: #### L 501.9520, L501.2300, L504.2610, L506.0400, L100.0100, L500.4050, L501.5200 ####[facility] [address] [place], [address] RBC (Bld) [#/Vol] 3.71 10*6/uL Low 4.2-5.4 [facility] Comment on above: Performed By: #### L 501.9520, L501.2300, L504.2610, L506.0400, L100.0100, L500.4050, L501.5200 ####[facility] [address] [place], [address] RDW SD 56.8 fl High 35.1-43.9 [facility] Comment on above: Performed By: #### L 501.9520, L501.2300, L504.2610, L506.0400, L100.0100, L500.4050, L501.5200 ####[facility] [address] [place], [address] WBC (Bld) [#/Vol] 7.3 10*3/uL Normal 4.4-11.0 [facility] Comment on above: Performed By: #### L 501.9520, L501.2300, L504.2610, L506.0400, L100.0100, L500.4050, L501.5200 ####[facility] [address] [place], [address] Carbon dioxide, total [Moles /volume] in Central venous bloodOrdered By: Chadwick Munson on 01-28-2025 CO2 [Moles/Vol] 24.5 mmol/L 21.0-32.0 [facility] Chloride assayOrdered By: Kallie Munson on 01-28-2025 Chloride [Moles/Vol] 106 mmol/L 98-108 [facility] Comprehensive Metabolic Prof ilon 01-28-2025 Albumin [Mass/Vol] 4.2 g/dL Normal 3.4-4.8 [facility] Comment on above: Performed By: #### L 501.9520, L501.2300, L504.2610, L506.0400, L100.0100, L500.4050, L501.5200 ####[facility] [address] [place], [address] Albumin/Globulin [Mass ratio] 1.8 {ratio} Normal 0.9-2.4 [facility] Comment on above: Performed By: #### L 501.9520, L501.2300, L504.2610, L506.0400, L100.0100, L500.4050, L501.5200 ####[facility] [address] [place], [address] ALK PHOS 66 U/L Normal 35-104 [facility] Comment on above: Performed By: #### L 501.9520, L501.2300, L504.2610, L506.0400, L100.0100, L500.4050, L501.5200 ####[facility] [address] [place], [address] ALT [Catalytic activity/Vol] 15 U/L Normal <=34 [facility] Comment on above: Performed By: #### L 501.9520, L501.2300, L504.2610, L506.0400, L100.0100, L500.4050, L501.5200 ####[facility] [address] [place], [address] AST [Catalytic activity/Vol] 25 U/L Normal <=31 [facility] Comment on above: Performed By: #### L 501.9520, L501.2300, L504.2610, L506.0400, L100.0100, L500.4050, L501.5200 ####[facility] [address] [place], [address] Bilirubin [Mass/Vol] 0.73 mg/dL Normal 0.00-1.30 [facility] Comment on above: Performed By: #### L 501.9520, L501.2300, L504.2610, L506.0400, L100.0100, L500.4050, L501.5200 ####[facility] [address] [place], [address] BUN/CRE 14.0 RATIO Normal 10-20 [facility] Comment on above: Performed By: #### L 501.9520, L501.2300, L504.2610, L506.0400, L100.0100, L500.4050, L501.5200 ####[facility] [address] [place], [address] Calcium [Mass/Vol] 8.9 mg/dL Normal 7.6-11.0 [facility] Comment on above: Performed By: #### L 501.9520, L501.2300, L504.2610, L506.0400, L100.0100, L500.4050, L501.5200 ####[facility] [address] [place], [address] Chloride [Moles/Vol] 106 mmol/L Normal 98-108 [facility] Comment on above: Performed By: #### L 501.9520, L501.2300, L504.2610, L506.0400, L100.0100, L500.4050, L501.5200 ####[facility] [address] [place], [address] CO2 [Moles/Vol] 24.5 mmol/L Normal 21.0-32.0 [facility] Comment on above: Performed By: #### L 501.9520, L501.2300, L504.2610, L506.0400, L100.0100, L500.4050, L501.5200 ####[facility] [address] [place], [address] Creatinine [Mass/Vol] 0.87 mg/dL Normal 0.70-1.20 [facility] Comment on above: Performed By: #### L 501.9520, L501.2300, L504.2610, L506.0400, L100.0100, L500.4050, L501.5200 ####[facility] [address] [place], [address] ECRCL 56.46 ml/min Normal 50-250 [facility] Comment on above: Performed By: #### L 501.9520, L501.2300, L504.2610, L506.0400, L100.0100, L500.4050, L501.5200 ####[facility] [address] [place], [address] GAP 9 Normal 5-15 [facility] Comment on above: Performed By: #### L 501.9520, L501.2300, L504.2610, L506.0400, L100.0100, L500.4050, L501.5200 ####[facility] [address] [place], [address] GFR/1.73 sq M.predicted among non-blacks MDRD (S/P/Bld) [Vol rate/Area] 73 mL/min/{1.73_m2} Normal >60 [facility] Comment on above: Result Comment: mL/m in/1.73m2 CKD-EPI Creatinine Equation (2020) Performed By: #### L 501.9520, L501.2300, L504.2610, L506.0400, L100.0100, L500.4050, L501.5200 ####[facility] [address] [place], [address] Globulin (S) [Mass/Vol] 2.3 g/dL Normal 2.2-4.2 [facility] Comment on above: Performed By: #### L 501.9520, L501.2300, L504.2610, L506.0400, L100.0100, L500.4050, L501.5200 ####[facility] [address] [place], [address] Glucose [Mass/Vol] 92 mg/dL Normal 70-99 [facility] Comment on above: Performed By: #### L 501.9520, L501.2300, L504.2610, L506.0400, L100.0100, L500.4050, L501.5200 ####[facility] [address] [place], [address] Potassium [Moles/Vol] 4.2 mmol/L Normal 3.3-5.1 [facility] Comment on above: Performed By: #### L 501.9520, L501.2300, L504.2610, L506.0400, L100.0100, L500.4050, L501.5200 ####[facility] [address] [place], [address] Sodium [Moles/Vol] 140 mmol/L Normal 133-145 [facility] Comment on above: Performed By: #### L 501.9520, L501.2300, L504.2610, L506.0400, L100.0100, L500.4050, L501.5200 ####[facility] [address] [place], [address] T PROT 6.5 g/dL Normal 5.9-8.4 [facility] Comment on above: Performed By: #### L 501.9520, L501.2300, L504.2610, L506.0400, L100.0100, L500.4050, L501.5200 ####[facility] [address] [place], [address] Urea nitrogen [Mass/Vol] 12 mg/dL Normal 4-19 [facility] Comment on above: Performed By: #### L 501.9520, L501.2300, L504.2610, L506.0400, L100.0100, L500.4050, L501.5200 ####[facility] [address] [place], [address] Eosinophil percentageOrdered By: Chadwick Munson on 01-28-2025 Eosinophils/100 WBC (Bld) 4.1 % 0-5 [facility] Erythrocyte distribution wid th ratioOrdered By: Chadwick Munson on 01-28-2025 Erythrocyte distribution width (RBC) [Ratio] 15.8 % High 11.6-14.6 [facility] Erythrocyte distribution wid th standard deviationOrdered By: Chadwick Munson on 01-28-2025 Erythrocyte distribution width (RBC) [Ratio] 56.8 fl High 35.1-43.9 [facility] Glomerular filtration rate ( GFR) estimation/1.73 sq m using serum, plasma, or whole bOrdered By: Chadwick Munson on 01-28-2025 GFR/1.73 sq M.predicted among non-blacks MDRD (S/P/Bld) [Vol rate/Area] 73 mL/min/{1.73_m2} >60 [facility] Comment on above: mL/min/1.73m2 CKD-EP I Creatinine Equation (2020) Hematocrit Auto (Bld) [Volum e fraction]Ordered By: Chadwick Munson on 01-28-2025 Hematocrit (Bld) [Volume fraction] 36.2 % Low 37-47 [facility] Hemoglobin measurementOrdere d By: Chadwick Munson on 01-28-2025 Hemoglobin (Bld) [Mass/Vol] 12.0 g/dL 12.0-15.0 [facility] Immature granulocytes/100 WB C Auto (Bld)Ordered By: Chadwick Munson on 01-28-2025 Immature granulocytes/100 WBC (Bld) 0.300 % 0.0-0.9 [facility] Comment on above: IG% - Immature Granu locytes (promyelocytes, myelocytes and metamyelocytes) > 1% indicates that a LEFT SHIFT is Present. LDHon 01-28-2025 LDH 224 U/L Normal 84-246 [facility] Comment on above: Order Comment: 1 Performed By: #### L 501.9520, L501.2300, L504.2610, L506.0400, L100.0100, L500.4050, L501.5200 ####[facility] [address] [place], [address] Laboratory - Chemistry and C hemistry - challengeOrdered By: Chadwick Munson on 01-28-2025 AST [Catalytic activity/Vol] 25 U/L <32 [facility] Lactate dehydrogenase (LDH) measurementOrdered By: Chadwick Munson on 01-28-2025 LDH [Catalytic activity/Vol] 224 U/L 84-246 [facility] MCV (mean corpuscular volume ) determinationOrdered By: Chadwick Munson on 01-28-2025 MCV (RBC) [Entitic vol] 97.6 fL 81-99 [facility] Magnesiumon 01-28-2025 Magnesium [Mass/Vol] 2.0 mg/dL Normal 1.5-2.2 [facility] Comment on above: Performed By: #### L 501.9520, L501.2300, L504.2610, L506.0400, L100.0100, L500.4050, L501.5200 ####[facility] [address] [place], [address] Magnesium measurement (mass/ volume)Ordered By: Chadwick Munson on 01-28-2025 Magnesium (Unsp spec) [Mass/Vol] 2.0 mg/dL 1.5-2.2 [facility] Mean corpuscular hemoglobin (MCH) determinationOrdered By: Chadwick Munson on 01-28-2025 MCH (RBC) [Entitic mass] 32.3 pg High 27.0-32.0 [facility] Mean corpuscular hemoglobin concentration (MCHC) determinationOrdered By: Chadwick Munson on 01-28-2025 MCHC (RBC) [Mass/Vol] 33.1 g/dL 32-36 [facility] Mean platelet volume determi nationOrdered By: Chadwick Munson on 01-28-2025 Platelet mean volume (Bld) [Entitic vol] 8.9 fL 6.2-12.0 [facility] Monocyte percentageOrdered B y: Chadwick Munson on 01-28-2025 Monocytes/100 WBC (Bld) 13.8 % High 0-10 [facility] Neutrophil percentageOrdered By: [facility] on 01-28-2025 Neutrophils/100 WBC (Bld) 62.7 % 47-70 [facility] Nucleated red blood cell per centageOrdered By: Chadwick Munson on 01-28-2025 Nucleated RBC/100 WBC (Bld) [Ratio] 0 % 0-5 [facility] Oncology Visit Reporton 01-15 Oncology Visit Report Normal [facility] Phosphoruson 01-28-2025 Phosphate [Mass/Vol] 3.3 mg/dL Normal 2.7-4.5 [facility] Comment on above: Performed By: #### L 501.9520, L501.2300, L504.2610, L506.0400, L100.0100, L500.4050, L501.5200 ####[facility] [address] [place], [address] Platelet countOrdered By: Kallie Munson on 01-28-2025 Platelets (Bld) [#/Vol] 159 10*3/uL 150-450 [facility] Potassium measurement (mass/ volume)Ordered By: Chadwick Munson on 01-28-2025 Potassium (Unsp spec) [Mass/Vol] 4.2 mmol/L 3.3-5.1 [facility] RBC Auto (Bld) [#/Vol]Ordere d By: Chadwick Munson on 01-28-2025 RBC (Bld) [#/Vol] 3.71 10*6/uL Low 4.2-5.4 [facility] Serum creatinine measurement (mass/volume)Ordered By: Chadwick Munson on 01-28-2025 Creatinine [Mass/Vol] 0.87 mg/dL 0.70-1.20 [facility] Serum globulin measurementOr dered By: Chadwick Munson on 01-28-2025 Globulin (S) [Mass/Vol] 2.3 g/dL 2.2-4.2 [facility] Serum glucose measurement (m ass/volume)Ordered By: Chadwick Munson on 01-28-2025 Glucose [Mass/Vol] 92 mg/dL 70-99 [facility] Serum or plasma alanine lam otransferase (ALT) measurementOrdered By: Chadwick Munson on 01-28-2025 ALT [Catalytic activity/Vol] 15 U/L <35 [facility] Serum or plasma albumin nicole urement (mass/volume)Ordered By: Chadwick Munson on 01-28-2025 Albumin [Mass/Vol] 4.2 g/dL 3.4-4.8 [facility] Serum or plasma albumin/glob ulin mass ratioOrdered By: Chadwick Munson on 01-28-2025 Albumin/Globulin [Mass ratio] 1.8 {ratio} 0.9-2.4 [facility] Serum or plasma alkaline natanael sphatase measurementOrdered By: Chadwick Munson on 01-28-2025 ALP [Catalytic activity/Vol] 66 U/L 35-104 [facility] Serum or plasma calcium nicole urement (mass/volume)Ordered By: Chadwick Munson on 01-28-2025 Calcium [Mass/Vol] 8.9 mg/dL 7.6-11.0 [facility] Serum or plasma urea nitroge n measurement (mass/volume)Ordered By: Chadwick Munson on 01-28-2025 Urea nitrogen [Mass/Vol] 12 mg/dL 4-19 [facility] Sodium levelOrdered By: Micheal Munson on 01-28-2025 Sodium [Moles/Vol] 140 mmol/L 133-145 [facility] T4 Free Directon 01-28-2025 T4 FREE DIRECT 1.20 ng/dL Normal 0.76-1.46 [facility] Comment on above: Performed By: #### L 501.9520, L501.2300, L504.2610, L506.0400, L100.0100, L500.4050, L501.5200 ####[facility] [address] [place], [place], [address] T4 freeOrdered By: Chadwick goldman on 01-28-2025 Free T4 [Mass/Vol] 1.20 ng/dL 0.76-1.46 [facility] TSH DL <= 0.005 mIU/L QnOrde red By: Chadwick Munson on 01-28-2025 TSH Qn 1.620 uIU/mL 0.300-4.200 [facility] Thyroid Stim Hormone (TSH)on 01-28-2025 TSH 1.620 uIU/mL Normal 0.300-4.200 [facility] Comment on above: Performed By: #### L 501.9520, L501.2300, L504.2610, L506.0400, L100.0100, L500.4050, L501.5200 ####[facility] [address] [place], [address] Total proteinOrdered By: Luis freeman Jeimy on 01-28-2025 Protein [Mass/Vol] 6.5 g/dL 5.9-8.4 [facility] White blood cell (WBC) count Ordered By: Chadwick Munson on 01-28-2025 WBC (Bld) [#/Vol] 7.3 10*3/uL 4.4-11.0 [facility] Radiation Oncology Visiton 1 Radiation Oncology Visit Normal [facility] Brain W/WO Contraston 2024 Brain W/WO Contrast Normal [facility] CT Chest AND Abd W/ Contrast on 01-20-2025 CT Chest AND Abd W/ Contrast Normal [facility] Cardiology Visit Reporton Cardiology Visit Report Normal [facility] Absolute lymphocyte countOrd ered By: Chadwick Munson on 01-07-2025 Lymphocytes Auto (Unsp spec) [#/Vol] 1.58 10*3/uL 0.83-4.51 [facility] Absolute neutrophil countOrd ered By: Chadwick Munson on 01-07-2025 Neutrophils (Bld) [#/Vol] 9.4 10*3/uL High 2.0-7.7 [facility] Anion gap in Serum or Plasma Ordered By: Chadwick Munson on 01-07-2025 Anion gap [Moles/Vol] 12 mmol/L 5-15 [facility] Automated lymphocyte count a s percentage of total leukocytesOrdered By: Chadwick Munson on 01-07-2025 Lymphocytes/100 WBC Auto (Unsp spec) 12.5 % Low 19-41 [facility] BUN/creatinine ratioOrdered By: Chadwick Munson on 01-07-2025 Urea nitrogen/Creatinine [Mass ratio] 12.6 mg/mg 10-20 [facility] Basophil percentageOrdered B y: Chadwick Munson on 01-07-2025 Basophils/100 WBC (Bld) 0.2 % 0-1 [facility] Bilirubin, totalOrdered By: Chadwick Munson on 01-07-2025 Bilirubin [Mass/Vol] 0.41 mg/dL 0.00-1.30 [facility] CBC W/Diff, Automatedon 12-17 Anisocytosis Ql (Bld) 1+ Normal [facility] Comment on above: Performed By: #### L 500.4050, L501.5200, L504.2610, L100.0100, L501.9520, L501.2300, L506.0400 ####[facility] [address] [place], [address] Carbon dioxide, total [Moles /volume] in Central venous bloodOrdered By: Chadwick Munson on 01-07-2025 CO2 [Moles/Vol] 21.5 mmol/L 21.0-32.0 [facility] Chloride assayOrdered By: Kallie Munson on 01-07-2025 Chloride [Moles/Vol] 105 mmol/L 98-108 [facility] Comprehensive Metabolic Prof ilon 01-07-2025 Albumin [Mass/Vol] 4.1 g/dL Normal 3.4-4.8 [facility] Comment on above: Performed By: #### L 500.4050, L501.5200, L504.2610, L100.0100, L501.9520, L501.2300, L506.0400 ####[facility] [address] [place], [place], [id number] Albumin/Globulin [Mass ratio] 1.7 {ratio} Normal 0.9-2.4 [facility] Comment on above: Performed By: #### L 500.4050, L501.5200, L504.2610, L100.0100, L501.9520, L501.2300, L506.0400 ####[facility] [address] [place], [address] ALK PHOS 88 U/L Normal 35-104 [facility] Comment on above: Performed By: #### L 500.4050, L501.5200, L504.2610, L100.0100, L501.9520, L501.2300, L506.0400 ####[facility] [address] [place], [address] ALT [Catalytic activity/Vol] 12 U/L Normal <=34 [facility] Comment on above: Performed By: #### L 500.4050, L501.5200, L504.2610, L100.0100, L501.9520, L501.2300, L506.0400 ####[facility] [address] [place], [address] AST [Catalytic activity/Vol] 17 U/L Normal <=31 [facility] Comment on above: Performed By: #### L 500.4050, L501.5200, L504.2610, L100.0100, L501.9520, L501.2300, L506.0400 ####[facility] [address] [place], [address] Bilirubin [Mass/Vol] 0.41 mg/dL Normal 0.00-1.30 [facility] Comment on above: Performed By: #### L 500.4050, L501.5200, L504.2610, L100.0100, L501.9520, L501.2300, L506.0400 ####[facility] [address] [place], [address] BUN/CRE 12.6 RATIO Normal 10-20 [facility] Comment on above: Performed By: #### L 500.4050, L501.5200, L504.2610, L100.0100, L501.9520, L501.2300, L506.0400 ####[facility] [address] [place], [address] Calcium [Mass/Vol] 8.9 mg/dL Normal 7.6-11.0 [facility] Comment on above: Performed By: #### L 500.4050, L501.5200, L504.2610, L100.0100, L501.9520, L501.2300, L506.0400 ####[facility] [address] [place], [address] Chloride [Moles/Vol] 105 mmol/L Normal 98-108 [facility] Comment on above: Performed By: #### L 500.4050, L501.5200, L504.2610, L100.0100, L501.9520, L501.2300, L506.0400 ####[facility] [address] [place], [address] CO2 [Moles/Vol] 21.5 mmol/L Normal 21.0-32.0 [facility] Comment on above: Performed By: #### L 500.4050, L501.5200, L504.2610, L100.0100, L501.9520, L501.2300, L506.0400 ####[facility] [address] [place], [address] Creatinine [Mass/Vol] 0.79 mg/dL Normal 0.70-1.20 [facility] Comment on above: Performed By: #### L 500.4050, L501.5200, L504.2610, L100.0100, L501.9520, L501.2300, L506.0400 ####[facility] [address] [place], [address] ECRCL 61.40 ml/min Normal 50-250 [facility] Comment on above: Performed By: #### L 500.4050, L501.5200, L504.2610, L100.0100, L501.9520, L501.2300, L506.0400 ####[facility] [address] [place], [address] GAP 12 Normal 5-15 [facility] Comment on above: Performed By: #### L 500.4050, L501.5200, L504.2610, L100.0100, L501.9520, L501.2300, L506.0400 ####[facility] [address] [place], [address] GFR/1.73 sq M.predicted among non-blacks MDRD (S/P/Bld) [Vol rate/Area] 82 mL/min/{1.73_m2} Normal >60 [facility] Comment on above: Result Comment: mL/m in/1.73m2 CKD-EPI Creatinine Equation (2020) Performed By: #### L 500.4050, L501.5200, L504.2610, L100.0100, L501.9520, L501.2300, L506.0400 ####[facility] [address] [place], [address] Globulin (S) [Mass/Vol] 2.4 g/dL Normal 2.2-4.2 [facility] Comment on above: Performed By: #### L 500.4050, L501.5200, L504.2610, L100.0100, L501.9520, L501.2300, L506.0400 ####[facility] [address] [place], [address] Glucose [Mass/Vol] 122 mg/dL High 70-99 [facility] Comment on above: Performed By: #### L 500.4050, L501.5200, L504.2610, L100.0100, L501.9520, L501.2300, L506.0400 ####[facility] [address] [place], [address] Potassium [Moles/Vol] 4.1 mmol/L Normal 3.3-5.1 [facility] Comment on above: Performed By: #### L 500.4050, L501.5200, L504.2610, L100.0100, L501.9520, L501.2300, L506.0400 ####[facility] [address] [place], [place], [id number] Sodium [Moles/Vol] 138 mmol/L Normal 133-145 [facility] Comment on above: Performed By: #### L 500.4050, L501.5200, L504.2610, L100.0100, L501.9520, L501.2300, L506.0400 ####[facility] [address] [place], [address] T PROT 6.6 g/dL Normal 5.9-8.4 [facility] Comment on above: Performed By: #### L 500.4050, L501.5200, L504.2610, L100.0100, L501.9520, L501.2300, L506.0400 ####[facility] [address] [place], [place], [id number] Urea nitrogen [Mass/Vol] 10 mg/dL Normal 4-19 [facility] Comment on above: Performed By: #### L 500.4050, L501.5200, L504.2610, L100.0100, L501.9520, L501.2300, L506.0400 ####[facility] [address] [place], [place], [id number] Eosinophil percentageOrdered By: Chadwick Munson on 01-07-2025 Eosinophils/100 WBC (Bld) 0.3 % 0-5 [facility] Erythrocyte distribution wid th ratioOrdered By: Chadwick Munson on 01-07-2025 Erythrocyte distribution width (RBC) [Ratio] 21.0 % High 11.6-14.6 [facility] Erythrocyte distribution wid th standard deviationOrdered By: Chadwick Munson on 01-07-2025 Erythrocyte distribution width (RBC) [Ratio] 74.4 fl High 35.1-43.9 [facility] Glomerular filtration rate ( GFR) estimation/1.73 sq m using serum, plasma, or whole bOrdered By: Chadwick Munson on 01-07-2025 GFR/1.73 sq M.predicted among non-blacks MDRD (S/P/Bld) [Vol rate/Area] 82 mL/min/{1.73_m2} >60 [facility] Comment on above: mL/min/1.73m2 CKD-EP I Creatinine Equation (2020) Hematocrit Auto (Bld) [Volum e fraction]Ordered By: Chadwick Munson on 01-07-2025 Hematocrit (Bld) [Volume fraction] 30.7 % Low 37-47 [facility] Hemoglobin measurementOrdere d By: Chadwick Munson on 01-07-2025 Hemoglobin (Bld) [Mass/Vol] 10.5 g/dL Low 12.0-15.0 [facility] Immature granulocytes/100 WB C Auto (Bld)Ordered By: Chadwick Munson on 01-07-2025 Immature granulocytes/100 WBC (Bld) 0.800 % 0.0-0.9 [facility] Comment on above: IG% - Immature Granu locytes (promyelocytes, myelocytes and metamyelocytes) > 1% indicates that a LEFT SHIFT is Present. LDHon 01-07-2025 LDH 213 U/L Normal 84-246 [facility] Comment on above: Order Comment: 1 Performed By: #### L 500.4050, L501.5200, L504.2610, L100.0100, L501.9520, L501.2300, L506.0400 ####[facility] [address] [place], [address] Laboratory - Chemistry and C hemistry - challengeOrdered By: Chadwick Munson on 01-07-2025 AST [Catalytic activity/Vol] 17 U/L <32 [facility] Laboratory - Hematology and Cell countsOrdered By: Chadwick Munson on 01-07-2025 Anisocytosis Ql (Bld) 1+ [facility] Lactate dehydrogenase (LDH) measurementOrdered By: Chadwick Munson on 09-23-2025 LDH [Catalytic activity/Vol] 213 U/L 84-246 [facility] MCV (mean corpuscular volume ) determinationOrdered By: Chadwick Munson on 01-07-2025 MCV (RBC) [Entitic vol] 97.5 fL 81-99 [facility] Magnesiumon 01-07-2025 Magnesium [Mass/Vol] 2.2 mg/dL Normal 1.5-2.2 [facility] Comment on above: Performed By: #### L 500.4050, L501.5200, L504.2610, L100.0100, L501.9520, L501.2300, L506.0400 ####[facility] [address] [place], [address] Magnesium measurement (mass/ volume)Ordered By: Chadwick Munson on 01-07-2025 Magnesium (Unsp spec) [Mass/Vol] 2.2 mg/dL 1.5-2.2 [facility] Mean corpuscular hemoglobin (MCH) determinationOrdered By: Chadwick Munson on 01-07-2025 MCH (RBC) [Entitic mass] 33.3 pg High 27.0-32.0 [facility] Mean corpuscular hemoglobin concentration (MCHC) determinationOrdered By: [facility] on 01-07-2025 MCHC (RBC) [Mass/Vol] 34.2 g/dL 32-36 [facility] Mean platelet volume determi nationOrdered By: Chadwick Munson on 01-07-2025 Platelet mean volume (Bld) [Entitic vol] 8.9 fL 6.2-12.0 [facility] Monocyte percentageOrdered B y: Chadwick Munson on 01-07-2025 Monocytes/100 WBC (Bld) 11.2 % High 0-10 [facility] Neutrophil percentageOrdered By: [facility] Jeimy on 01-07-2025 Neutrophils/100 WBC (Bld) 75.0 % High 47-70 [facility] Nucleated red blood cell per centageOrdered By: [facility] on 01-07-2025 Nucleated RBC/100 WBC (Bld) [Ratio] 0 % 0-5 [facility] Oncology Visit Reporton 12-17 Oncology Visit Report Normal [facility] Phosphoruson 01-07-2025 Phosphate [Mass/Vol] 3.4 mg/dL Normal 2.7-4.5 [facility] Comment on above: Performed By: #### L 500.4050, L501.5200, L504.2610, L100.0100, L501.9520, L501.2300, L506.0400 ####[facility] [address] [place], [address] Platelet countOrdered By: Kallie Munson on 01-07-2025 Platelets (Bld) [#/Vol] 230 10*3/uL 150-450 [facility] Potassium measurement (mass/ volume)Ordered By: Chadwick Munson on 01-07-2025 Potassium (Unsp spec) [Mass/Vol] 4.1 mmol/L 3.3-5.1 [facility] RBC Auto (Bld) [#/Vol]Ordere d By: Chadwick Munson on 01-07-2025 RBC (Bld) [#/Vol] 3.15 10*6/uL Low 4.2-5.4 [facility] Serum creatinine measurement (mass/volume)Ordered By: Chadwick Munson on 01-07-2025 Creatinine [Mass/Vol] 0.79 mg/dL 0.70-1.20 [facility] Serum globulin measurementOr dered By: Chadwick Munson on 01-07-2025 Globulin (S) [Mass/Vol] 2.4 g/dL 2.2-4.2 [facility] Serum glucose measurement (m ass/volume)Ordered By: Chadwick Munson on 01-07-2025 Glucose [Mass/Vol] 122 mg/dL High 70-99 [facility] Serum or plasma alanine lam otransferase (ALT) measurementOrdered By: Chadwick Munson on 01-07-2025 ALT [Catalytic activity/Vol] 12 U/L <35 [facility] Serum or plasma albumin nicole urement (mass/volume)Ordered By: Chadwick Munson on 01-07-2025 Albumin [Mass/Vol] 4.1 g/dL 3.4-4.8 [facility] Serum or plasma albumin/glob ulin mass ratioOrdered By: Chadwick Munson on 01-07-2025 Albumin/Globulin [Mass ratio] 1.7 {ratio} 0.9-2.4 [facility] Serum or plasma alkaline natanael sphatase measurementOrdered By: Chadwick Munson on 01-07-2025 ALP [Catalytic activity/Vol] 88 U/L 35-104 [facility] Serum or plasma calcium nicole urement (mass/volume)Ordered By: Chadwick Munson on 01-07-2025 Calcium [Mass/Vol] 8.9 mg/dL 7.6-11.0 [facility] Serum or plasma urea nitroge n measurement (mass/volume)Ordered By: Chadwick Munson on 01-07-2025 Urea nitrogen [Mass/Vol] 10 mg/dL 4-19 [facility] Sodium levelOrdered By: Micheal Munson on 01-07-2025 Sodium [Moles/Vol] 138 mmol/L 133-145 [facility] T4 Free Directon 01-07-2025 T4 FREE DIRECT 1.00 ng/dL Normal 0.76-1.46 [facility] Comment on above: Performed By: #### L 500.4050, L501.5200, L504.2610, L100.0100, L501.9520, L501.2300, L506.0400 ####[facility] [address] [place], [address] T4 freeOrdered By: Chadwick goldman on 01-07-2025 Free T4 [Mass/Vol] 1.00 ng/dL 0.76-1.46 [facility] TSH DL <= 0.005 mIU/L QnOrde red By: Chadwick Munson on 01-07-2025 TSH Qn 2.070 uIU/mL 0.300-4.200 [facility] Thyroid Stim Hormone (TSH)on 01-07-2025 TSH 2.070 uIU/mL Normal 0.300-4.200 [facility] Comment on above: Performed By: #### L 500.4050, L501.5200, L504.2610, L100.0100, L501.9520, L501.2300, L506.0400 ####[facility] [address] [place], [address] Total proteinOrdered By: Luis Munson on 01-07-2025 Protein [Mass/Vol] 6.6 g/dL 5.9-8.4 [facility] White blood cell (WBC) count Ordered By: Chadwick Munson on 01-07-2025 WBC (Bld) [#/Vol] 12.6 10*3/uL High 4.4-11.0 [facility] CBC W/Diff, Automatedon 12-16 Anisocytosis Ql (Bld) 1+ Normal [facility] Comment on above: Performed By: #### L 100.0100 ####[facility] [address] [facility] [place], [place], [id number] Urine Cultureon 12-20-2024 URC Below infection leve l. 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 [place], [place], [id number] Bilirubin Test strip Ql (U)O rdered By: Shavonne Blanchard on 12-19-2024 Bilirubin Ql (U) Negative Negative [facility] Ketones Test strip Ql (U)Ord ered By: Shavonne ChavezSanto on 12-19-2024 Ketones Ql (U) Negative Negative [facility] Microscopic analysis of urin e for red blood cells (RBC)Ordered By: Shavonne Blanchard on 12-19-2024 Microscopic analysis of urine for red blood cells (RBC) 0 SEEN /hpf 0-5 [facility] Mucus LM Ql (Urine sed)Order ed By: Shavonne Blanchard on 12-19-2024 Mucus Ql (Urine sed) 0 SEEN /hpf [facility] Nitrite Test strip Ql (U)Ord ered By: Shavonne Blanchard on 12-19-2024 Nitrite Ql (U) Negative Negative [facility] Protein Test strip Ql (U)Ord ered By: Shavonnenabil ChavezSanto on 12-19-2024 Protein Ql (U) Negative Negative [facility] Squamous epithelial cells de tection in urine sediment by light microscopyOrdered By: Shavonne Blanchard on 12-19-2024 Epithelial cells.squamous LM Ql (Urine sed) 0-5 SEEN /hpf 5-10 [facility] Urinalysis, Completeon 12-19 EPI,SQUAMOUS 0-5 SEEN Normal 5-10 [facility] Comment on above: Order Comment: SHELLEY CTOR TO SPECIFY Performed By: #### M 100.2200, L400.0001 ####[facility] [address] [place], [address] WBC 0-5 SEEN Normal 0-5 [facility] Comment on above: Order Comment: SHELLEY CTOR TO SPECIFY Performed By: #### M 100.2200, L400.0001 ####[facility] [address] [place], [address] BACTERIA 0 SEEN Normal None Seen [facility] Comment on above: Order Comment: SHELLEY CTOR TO SPECIFY Performed By: #### M 100.2200, L400.0001 ####[facility] [address] [place], [address] Mucus Ql (Urine sed) 0 SEEN Normal [facility] Comment on above: Order Comment: SHELLEY CTOR TO SPECIFY Performed By: #### M 100.2200, L400.0001 ####[facility] [address] [place], [address] RBC 0 SEEN Normal 0-5 [facility] Comment on above: Order Comment: SHELLEY CTOR TO SPECIFY Performed By: #### M 100.2200, L400.0001 ####[facility] [address] 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 Abnormal [facility] Urine glucose detectionOrder ed By: Shavonne Blanchard on 12-19-2024 Glucose Ql (U) Normal mg/dl Normal [facility] Urine leukocyte esterase det ection by dipstickOrdered By: Shavonne Blanchard on 12-19-2024 Leukocyte esterase Test strip Ql (U) Negative Negative [facility] Urine pHOrdered By: Shavonne gasca on 12-19-2024 pH (U) 6.0 [pH] 5.0 - 8.0 [facility] Urine sediment bacteria coun t by microscopy (number/high power field)Ordered By: Shavonne Blanchard on 12-19-2024 Bacteria LM.HPF (Urine sed) [#/Area] 0 /[HPF] None Seen [facility] Urine specific gravity measu rementOrdered By: Shavonne Blanchard on 12-19-2024 Specific gravity (U) [Rel density] 1.015 1.002-1.030 [facility] Urine urobilinogen measureme ntOrdered By: Shavonne Blanchard on 12-19-2024 Urobilinogen Ql (U) Normal mg/dl Normal [facility] White blood cell countOrdere d By: Shavonne Blanchard on 12-19-2024 White blood cell count 0-5 SEEN /hpf 0-5 [facility] Absolute lymphocyte countOrd ered By: Chadwick Munson on 12-17-2024 Lymphocytes Auto (Unsp spec) [#/Vol] 1.77 10*3/uL 0.83-4.51 [facility] Absolute neutrophil countOrd ered By: Chadwick Munson on 12-17-2024 Neutrophils (Bld) [#/Vol] 11.8 10*3/uL High 2.0-7.7 [facility] Anion gap in Serum or Plasma Ordered By: Chadwick Munson on 12-17-2024 Anion gap [Moles/Vol] 11 mmol/L 5-15 [facility] Automated lymphocyte count a s percentage of total leukocytesOrdered By: Chadwick Munson on 12-17-2024 Lymphocytes/100 WBC Auto (Unsp spec) 11.2 % Low 19-41 [facility] BUN/creatinine ratioOrdered By: Chadwick Munson on 12-17-2024 Urea nitrogen/Creatinine [Mass ratio] 11.0 mg/mg 10-20 [facility] Basophil percentageOrdered B y: Chadwick Munson on 12-17-2024 Basophils/100 WBC (Bld) 0.3 % 0-1 [facility] Bilirubin, totalOrdered By: Chadwick Munson on 12-17-2024 Bilirubin [Mass/Vol] 0.53 mg/dL 0.00-1.30 [facility] Blood manual differential co mment interpretation (narrative result)Ordered By: Chadwick Munson on 12-17-2024 Manual differential comment Adams (Bld) [Interp] COMMENT [facility] Comment on above: MONOCYTOSIS. CBC W/Diff, Automatedon SMEAR COMMENT COMMENT Normal [facility] Comment on above: Result Comment: MONO CYTOSIS. Performed By: #### L 501.2300, L500.4050, L100.0100, L501.5200 ####[facility] [address] [place], [address] Anisocytosis Ql (Bld) 1+ Normal [facility] Comment on above: Performed By: #### L 501.2300, L500.4050, L100.0100, L501.5200 ####[facility] [address] [place], [address] Carbon dioxide, total [Moles /volume] in Central venous bloodOrdered By: Chadwick Munson on 12-17-2024 CO2 [Moles/Vol] 22.5 mmol/L 21.0-32.0 [facility] Chloride assayOrdered By: Kallie Munson on 12-17-2024 Chloride [Moles/Vol] 102 mmol/L 98-108 [facility] Comprehensive Metabolic Prof ilon 12-17-2024 Albumin [Mass/Vol] 4.3 g/dL Normal 3.4-4.8 [facility] Comment on above: Performed By: #### L 501.2300, L500.4050, L100.0100, L501.5200 ####[facility] [address] [place], [address] Albumin/Globulin [Mass ratio] 1.6 {ratio} Normal 0.9-2.4 [facility] Comment on above: Performed By: #### L 501.2300, L500.4050, L100.0100, L501.5200 ####[facility] [address] [place], [address] ALK PHOS 94 U/L Normal 35-104 [facility] Comment on above: Performed By: #### L 501.2300, L500.4050, L100.0100, L501.5200 ####[facility] [address] [place], [address] ALT [Catalytic activity/Vol] 14 U/L Normal <=34 [facility] Comment on above: Performed By: #### L 501.2300, L500.4050, L100.0100, L501.5200 ####[facility] [address] [place], [address] AST [Catalytic activity/Vol] 25 U/L Normal <=31 [facility] Comment on above: Performed By: #### L 501.2300, L500.4050, L100.0100, L501.5200 ####[facility] [address] [place], [address] Bilirubin [Mass/Vol] 0.53 mg/dL Normal 0.00-1.30 [facility] Comment on above: Performed By: #### L 501.2300, L500.4050, L100.0100, L501.5200 ####[facility] [address] [place], [address] BUN/CRE 11.0 RATIO Normal 10-20 [facility] Comment on above: Performed By: #### L 501.2300, L500.4050, L100.0100, L501.5200 ####[facility] [address], [address] Calcium [Mass/Vol] 9.2 mg/dL Normal 7.6-11.0 [facility] Comment on above: Performed By: #### L 501.2300, L500.4050, L100.0100, L501.5200 ####[facility] [address] [place], [address] Chloride [Moles/Vol] 102 mmol/L Normal 98-108 [facility] Comment on above: Performed By: #### L 501.2300, L500.4050, L100.0100, L501.5200 ####[facility] [address] [place], [address] CO2 [Moles/Vol] 22.5 mmol/L Normal 21.0-32.0 [facility] Comment on above: Performed By: #### L 501.2300, L500.4050, L100.0100, L501.5200 ####[facility] [address] [place], [address] Creatinine [Mass/Vol] 0.87 mg/dL Normal 0.70-1.20 [facility] Comment on above: Performed By: #### L 501.2300, L500.4050, L100.0100, L501.5200 ####[facility] [address] [place], [address] ECRCL 56.46 ml/min Normal 50-250 [facility] Comment on above: Performed By: #### L 501.2300, L500.4050, L100.0100, L501.5200 ####[facility] [address] [place], [address] GAP 11 Normal 5-15 [facility] Comment on above: Performed By: #### L 501.2300, L500.4050, L100.0100, L501.5200 ####[facility] [address] [place], [address] GFR/1.73 sq M.predicted among non-blacks MDRD (S/P/Bld) [Vol rate/Area] 73 mL/min/{1.73_m2} Normal >60 [facility] Comment on above: Result Comment: mL/m in/1.73m2 CKD-EPI Creatinine Equation (2020) Performed By: #### L 501.2300, L500.4050, L100.0100, L501.5200 ####[facility] [address] [place], [address] Globulin (S) [Mass/Vol] 2.8 g/dL Normal 2.2-4.2 [facility] Comment on above: Performed By: #### L 501.2300, L500.4050, L100.0100, L501.5200 ####[facility] [address] [place], [address] Glucose [Mass/Vol] 121 mg/dL High 70-99 [facility] Comment on above: Performed By: #### L 501.2300, L500.4050, L100.0100, L501.5200 ####[facility] [address] [place], [address] Potassium [Moles/Vol] 4.7 mmol/L Normal 3.3-5.1 [facility] Comment on above: Performed By: #### L 501.2300, L500.4050, L100.0100, L501.5200 ####[facility] [address] [place], [address] Sodium [Moles/Vol] 136 mmol/L Normal 133-145 [facility] Comment on above: Performed By: #### L 501.2300, L500.4050, L100.0100, L501.5200 ####[facility] [address] [place], [address] T PROT 7.1 g/dL Normal 5.9-8.4 [facility] Comment on above: Performed By: #### L 501.2300, L500.4050, L100.0100, L501.5200 ####[facility] [address] [place], [address] Urea nitrogen [Mass/Vol] 10 mg/dL Normal 4-19 [facility] Comment on above: Performed By: #### L 501.2300, L500.4050, L100.0100, L501.5200 ####[facility] [address] [place], [address] Eosinophil percentageOrdered By: Chadwick Munson on 12-17-2024 Eosinophils/100 WBC (Bld) 0.3 % 0-5 [facility] Erythrocyte distribution wid th ratioOrdered By: [facility] Mun[facility] on 12-17-2024 Erythrocyte distribution width (RBC) [Ratio] 21.5 % High 11.6-14.6 [facility] Erythrocyte distribution wid th standard deviationOrdered By: [facility] on 12-17-2024 Erythrocyte distribution width (RBC) [Ratio] 72.5 fl High 35.1-43.9 [facility] Glomerular filtration rate ( GFR) estimation/1.73 sq m using serum, plasma, or whole bOrdered By: Chadwick Munson on 12-17-2024 GFR/1.73 sq M.predicted among non-blacks MDRD (S/P/Bld) [Vol rate/Area] 73 mL/min/{1.73_m2} >60 [facility] Comment on above: mL/min/1.73m2 CKD-EP I Creatinine Equation (2020) Hematocrit Auto (Bld) [Volum e fraction]Ordered By: [facility] Jeimy on 12-17-2024 Hematocrit (Bld) [Volume fraction] 35.9 % Low 37-47 [facility] Hemoglobin measurementOrdere d By: [facility] Mun[facility] on 12-17-2024 Hemoglobin (Bld) [Mass/Vol] 11.9 g/dL Low 12.0-15.0 [facility] Immature granulocytes/100 WB C Auto (Bld)Ordered By: [facility] on 12-17-2024 Immature granulocytes/100 WBC (Bld) 1.100 % High 0.0-0.9 [facility] Comment on above: IG% - Immature Granu locytes (promyelocytes, myelocytes and metamyelocytes) > 1% indicates that a LEFT SHIFT is Present. L509.6001on 12-17-2024 CORTISOL 14.70 ug/dL Normal 6.02-18.40 [facility] Comment on above: Performed By: #### L 501.9520, L506.0400, L509.6001 ####[facility] [address] [place], [place], [id number] Laboratory - Chemistry and C hemistry - challengeOrdered By: [facility] 12-[facility]2024 AST [Catalytic activity/Vol] 25 U/L <32 [facility] Laboratory - Hematology and Cell countsOrdered By: [facility] on 12-17-2024 Anisocytosis Ql (Bld) 1+ [facility] MCV (mean corpuscular volume ) determinationOrdered By: [facility] on 12-17-2024 MCV (RBC) [Entitic vol] 94.5 fL 81-99 [facility] Magnesiumon 12-17-2024 Magnesium [Mass/Vol] 2.1 mg/dL Normal 1.5-2.2 [facility] Comment on above: Performed By: #### L 501.2300, L500.4050, L100.0100, L501.5200 ####[facility] [address] [place], [address] Magnesium measurement (mass/ volume)Ordered By: Chadwick Munson on 12-17-2024 Magnesium (Unsp spec) [Mass/Vol] 2.1 mg/dL 1.5-2.2 [facility] Mean corpuscular hemoglobin (MCH) determinationOrdered By: Chadwick Munson on 12-17-2024 MCH (RBC) [Entitic mass] 31.3 pg 27.0-32.0 [facility] Mean corpuscular hemoglobin concentration (MCHC) determinationOrdered By: Chadwick Munson on 12-17-2024 MCHC (RBC) [Mass/Vol] 33.1 g/dL 32-36 [facility] Mean platelet volume determi nationOrdered By: Chadwick Munson on 12-17-2024 Platelet mean volume (Bld) [Entitic vol] 9.0 fL 6.2-12.0 [facility] Monocyte percentageOrdered B y: Chadwick Munson on 12-17-2024 Monocytes/100 WBC (Bld) 12.3 % High 0-10 [facility] Neutrophil percentageOrdered By: Chadwick Munson on 12-17-2024 Neutrophils/100 WBC (Bld) 74.8 % High 47-70 [facility] Nucleated red blood cell per centageOrdered By: Chadwick Munson on 12-17-2024 Nucleated RBC/100 WBC (Bld) [Ratio] 0 % 0-5 [facility] Oncology Visit Reporton Oncology Visit Report Normal [facility] Phosphoruson 12-17-2024 Phosphate [Mass/Vol] 4.4 mg/dL Normal 2.7-4.5 [facility] Comment on above: Performed By: #### L 501.2300, L500.4050, L100.0100, L501.5200 ####[facility] [address] [place], [address] Platelet countOrdered By: Kallie Munson on 12-17-2024 Platelets (Bld) [#/Vol] 237 10*3/uL 150-450 [facility] Potassium measurement (mass/ volume)Ordered By: Chadwick Munson on 12-17-2024 Potassium (Unsp spec) [Mass/Vol] 4.7 mmol/L 3.3-5.1 [facility] RBC Auto (Bld) [#/Vol]Ordere d By: Chadwick Munson on 12-17-2024 RBC (Bld) [#/Vol] 3.80 10*6/uL Low 4.2-5.4 [facility] Serum creatinine measurement (mass/volume)Ordered By: Chadwick Munson on 12-17-2024 Creatinine [Mass/Vol] 0.87 mg/dL 0.70-1.20 [facility] Serum globulin measurementOr dered By: Chadwick Munson on 12-17-2024 Globulin (S) [Mass/Vol] 2.8 g/dL 2.2-4.2 [facility] Serum glucose measurement (m ass/volume)Ordered By: Chadwick Munson on 12-17-2024 Glucose [Mass/Vol] 121 mg/dL High 70-99 [facility] Serum or plasma alanine lam otransferase (ALT) measurementOrdered By: Chadwick Munson on 12-17-2024 ALT [Catalytic activity/Vol] 14 U/L <35 [facility] Serum or plasma albumin nicole urement (mass/volume)Ordered By: Chadwick Munson on 12-17-2024 Albumin [Mass/Vol] 4.3 g/dL 3.4-4.8 [facility] Serum or plasma albumin/glob ulin mass ratioOrdered By: Chadwick Munson on 12-17-2024 Albumin/Globulin [Mass ratio] 1.6 {ratio} 0.9-2.4 [facility] Serum or plasma alkaline natanael sphatase measurementOrdered By: Chadwick Munson on 12-17-2024 ALP [Catalytic activity/Vol] 94 U/L 35-104 [facility] Serum or plasma calcium nicole urement (mass/volume)Ordered By: Chadwick Munson on 12-17-2024 Calcium [Mass/Vol] 9.2 mg/dL 7.6-11.0 [facility] Serum or plasma cortisol alnie surement (mass/volume)Ordered By: Chadwick Munson on 12-17-2024 Cortisol [Mass/Vol] 14.70 ug/dL 6.02-18.40 [facility] Serum or plasma urea nitroge n measurement (mass/volume)Ordered By: Chadwick Munson on 12-17-2024 Urea nitrogen [Mass/Vol] 10 mg/dL 4-19 [facility] Sodium levelOrdered By: Micheal Munson on 12-17-2024 Sodium [Moles/Vol] 136 mmol/L 133-145 [facility] T4 Free Directon 12-17-2024 T4 FREE DIRECT 1.00 ng/dL Normal 0.76-1.46 [facility] Comment on above: Performed By: #### L 501.9520, L506.0400, L509.6001 ####[facility] [address] [place], [place], [id number] T4 freeOrdered By: Chadwick goldman on 12-17-2024 Free T4 [Mass/Vol] 1.00 ng/dL 0.76-1.46 [facility] TSH DL <= 0.005 mIU/L QnOrde red By: Chadwick Munson on 12-17-2024 TSH Qn 2.250 uIU/mL 0.300-4.200 [facility] Thyroid Stim Hormone (TSH)on 12-17-2024 TSH 2.250 uIU/mL Normal 0.300-4.200 [facility] Comment on above: Performed By: #### L 501.9520, L506.0400, L509.6001 ####[facility] [address] [place], [place], [id number] Total proteinOrdered By: Luis Munson on 12-17-2024 Protein [Mass/Vol] 7.1 g/dL 5.9-8.4 [facility] White blood cell (WBC) count Ordered By: Chadwick Munson on 12-17-2024 WBC (Bld) [#/Vol] 15.8 10*3/uL High 4.4-11.0 [facility] Urine Cultureon 12-08-2024 URC Normal [facility] Comment on above: Performed By: #### M 100.2200 ####[facility] [address] [place], [place], [id number] Bilirubin Test strip Ql (U)O rdered By: Chadwick Munson on 12-05-2024 Bilirubin Ql (U) Negative Negative [facility] Ketones Test strip Ql (U)Ord ered By: Chadwick Munson on 12-05-2024 Ketones Ql (U) Negative Negative [facility] Microscopic analysis of urin e for red blood cells (RBC)Ordered By: Chadwick Munson on 12-05-2024 Microscopic analysis of urine for red blood cells (RBC) 0-5 SEEN /hpf 0-5 [facility] Mucus LM Ql (Urine sed)Order ed By: Chadwick Munson on 12-05-2024 Mucus Ql (Urine sed) 0 SEEN /hpf [facility] Nitrite Test strip Ql (U)Ord ered By: Chadwick Munson on 12-05-2024 Nitrite Ql (U) Negative Negative [facility] Protein Test strip Ql (U)Ord ered By: Chadwick Munson on 12-05-2024 Protein Ql (U) 15 mg/dl High Negative [facility] Squamous epithelial cells de tection in urine sediment by light microscopyOrdered By: Chadwick Munson on 12-05-2024 Epithelial cells.squamous LM Ql (Urine sed) 0-5 SEEN /hpf 5-10 [facility] Urinalysis, Completeon 12-05 EPI,SQUAMOUS 0-5 SEEN Normal 5-10 [facility] Comment on above: Order Comment: SHELLEY CTOR TO SPECIFY Performed By: #### L 400.0001 ####[facility] [address] [place], [place], [id number] RBC 0-5 SEEN Normal 0-5 [facility] Comment on above: Order Comment: SHELLEY CTOR TO SPECIFY Performed By: #### L 400.0001 ####[facility] [address] [place], [place], [id number] WBC 0-5 SEEN Normal 0-5 [facility] Comment on above: Order Comment: SHELLEY CTOR TO SPECIFY Performed By: #### L 400.0001 ####[facility] [address] [place], [address] BACTERIA 0 SEEN Normal None Seen [facility] Comment on above: Order Comment: SHELLEY CTOR TO SPECIFY Performed By: #### L 400.0001 ####[facility] [address] [place], [place], [phone] Mucus Ql (Urine sed) 0 SEEN Normal [facility] Comment on above: Order Comment: SHELLEY CTOR TO SPECIFY Performed By: #### L 400.0001 ####[facility] [address] [place], [place], [phone] Urine clarityOrdered By: Luis Munson on 12-05-2024 Clarity (U) Clear Clear [facility] Urine color determinationOrd ered By: Chadwick Munson on 12-05-2024 Color (U) Yellow Yellow [facility] Urine cultureOrdered By: Tyr a Santo on 12-05-2024 Bacteria identified Cx Nom (U) Streptococcus agalactiae (B) Abnormal [facility] Urine glucose detectionOrder ed By: Chadwick Munson on 12-05-2024 Glucose Ql (U) Normal mg/dl Normal [facility] Urine leukocyte esterase det ection by dipstickOrdered By: Chadwick Munson on 12-05-2024 Leukocyte esterase Test strip Ql (U) Negative Negative [facility] Urine pHOrdered By: Chadwick Munson on 12-05-2024 pH (U) 5.0 [pH] 5.0 - 8.0 [facility] Urine sediment bacteria coun t by microscopy (number/high power field)Ordered By: Chadwick Munson on 12-05-2024 Bacteria LM.HPF (Urine sed) [#/Area] 0 /[HPF] None Seen [facility] Urine specific gravity measu rementOrdered By: Chadwick Munson on 12-05-2024 Specific gravity (U) [Rel density] 1.020 1.002-1.030 [facility] Urine urobilinogen measureme ntOrdered By: Chadwick Munson on 12-05-2024 Urobilinogen Ql (U) Normal mg/dl Normal [facility] White blood cell countOrdere d By: Chadwick Munson on 12-05-2024 White blood cell count 0-5 SEEN /hpf 0-5 [facility] Brain W/WO Contraston 2024 Brain W/WO Contrast Normal [facility] Magnetic resonance imaging r eportOrdered By: Angel Matta on 12-03-2024 Study report [facility] Imaging Services [address] [place] [address] Brain W/WO Contrast MR#: [id number] Acct: [id number] Name: GABRIELLE RIOS Rep #: [id number] : 1955 F 69 From: Bruno Matta MD PCP: Dr. Lynda Alonso MD Status: REG CL I Study:Brain W/WO Contrast Date of Exam: 12/03/24 Exam# [id number] Ordering Dr: Aly Gupta DO PROCEDURE: BRAIN W/WO CONTRAST 12/03/2024 REASON FOR EXAM: EVAL FOR BRAIN METASTASES TECHNIQUE: BRAIN W/WO CONTRAST Multiplanar and multisequence images were obtained. CONTRAST: Clariscan VOLUME: 12 mL COMPARISON: MRI brain with and without contrast, 06/21/2024. FINDINGS: There are multiple chronic lacunar infarctions in the periventricular white matter of both cerebral hemispheres. There is mild diffuse cerebral atrophy with concomitant ventriculomegaly. There is patchy periventricular white matter signal abnormality in both cerebral hemispheres, in the central tye, consistent with chronic ischemicwhite matter disease. There is a 4 mm in diameter area of subcortical white matter enhancement in the right parietal lobe, posteriorly. There is surrounding vasogenic edema. There is a normal sulcal pattern and gyral configuration. There is no evidence of acute intracranial hemorrhage or infarction. The mccurdy-white differentiation is well preserved. There is no evidence of restricted diffusion. The basilar cisterns are normal. There are normal flow voids demonstrated in the recognized intracranial vessels. The cerebellum and brainstem are unremarkable. The cerebellar pontine angles arenormal. The craniovertebral junction is normal. The sella and suprasellar regions are normal. The orbits and retro-orbital regions are unremarkable. The nasal septum is midline. There is no significant paranasal sinus disease. The mastoid air cells are clear. There is normal bone marrow signal in the skull base and calvarium. MRI/Brain W/WO Contrast IMPRESSION: 1. Interval development of a small subcortical area of abnormal contrast enhancement in the right parietal lobe, posteriorly. There is associated vasogenic edema, consistent with metastatic disease. 2. Multiple chronic lacunar infarctions in the periventricular white matter of both cerebral hemispheres. 3. Cerebral atrophy with chronic ischemic white matter disease. Reading Location: [id number] CC: Dr. Lynda Alonso MD; Dr. 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 [facility] Work Phone: Absolute lymphocyte countOrd ered By: Chadwick Munson on 11-26-2024 Lymphocytes Auto (Unsp spec) [#/Vol] 1.95 10*3/uL 0.83-4.51 [facility] Absolute neutrophil countOrd ered By: Chadwick Munson on 11-26-2024 Neutrophils (Bld) [#/Vol] 13.7 10*3/uL High 2.0-7.7 [facility] Anion gap in Serum or Plasma Ordered By: Chadwick Munson on 11-26-2024 Anion gap [Moles/Vol] 11 mmol/L 5-15 [facility] Automated lymphocyte count a s percentage of total leukocytesOrdered By: Chadwick Munson on 11-26-2024 Lymphocytes/100 WBC Auto (Unsp spec) 10.8 % Low 19-41 [facility] BUN/creatinine ratioOrdered By: Chadwick Munson on 11-26-2024 Urea nitrogen/Creatinine [Mass ratio] 17.9 mg/mg 10-20 [facility] Basophil percentageOrdered B y: Chadwick Munson on 11-26-2024 Basophils/100 WBC (Bld) 0.3 % 0-1 [facility] Bilirubin, totalOrdered By: Chadwick Munson on 11-26-2024 Bilirubin [Mass/Vol] 0.52 mg/dL 0.00-1.30 [facility] Blood polychromasia detectio n by light microscopyOrdered By: Chadwick Munson on 11-26-2024 Polychromasia LM Ql (Bld) 1+ [facility] CBC W/Diff, Automatedon 11-15 PLT EST ADEQUATE Normal ADEQ [facility] Comment on above: Performed By: #### L 500.4050, L501.2300, L501.5200, L100.0100 ####[facility] [address] [place], [address] POLYCHROMASIA 1+ Normal [facility] Comment on above: Performed By: #### L 500.4050, L501.2300, L501.5200, L100.0100 ####[facility] [address] [place], [address] Carbon dioxide, total [Moles /volume] in Central venous bloodOrdered By: Chadwick Munson on 11-26-2024 CO2 [Moles/Vol] 21.9 mmol/L 21.0-32.0 [facility] Chloride assayOrdered By: Kallie Munson on 11-26-2024 Chloride [Moles/Vol] 104 mmol/L 98-108 [facility] Comprehensive Metabolic Prof ilon 11-26-2024 Albumin [Mass/Vol] 4.5 g/dL Normal 3.4-4.8 [facility] Comment on above: Performed By: #### L 500.4050, L501.2300, L501.5200, L100.0100 ####[facility] [address] [place], [address] Albumin/Globulin [Mass ratio] 2.2 {ratio} Normal 0.9-2.4 [facility] Comment on above: Performed By: #### L 500.4050, L501.2300, L501.5200, L100.0100 ####[facility] [address] [place], [address] ALK PHOS 87 U/L Normal 35-104 [facility] Comment on above: Performed By: #### L 500.4050, L501.2300, L501.5200, L100.0100 ####[facility] [address] [place], [address] ALT [Catalytic activity/Vol] 15 U/L Normal <=34 [facility] Comment on above: Performed By: #### L 500.4050, L501.2300, L501.5200, L100.0100 ####[facility] [address] [place], [address] AST [Catalytic activity/Vol] 20 U/L Normal <=31 [facility] Comment on above: Performed By: #### L 500.4050, L501.2300, L501.5200, L100.0100 ####[facility] [address] [place], [address] Bilirubin [Mass/Vol] 0.52 mg/dL Normal 0.00-1.30 [facility] Comment on above: Performed By: #### L 500.4050, L501.2300, L501.5200, L100.0100 ####[facility] [address] [place], [address] BUN/CRE 17.9 RATIO Normal 10-20 [facility] Comment on above: Performed By: #### L 500.4050, L501.2300, L501.5200, L100.0100 ####[facility] [address] [place], [address] Calcium [Mass/Vol] 9.0 mg/dL Normal 7.6-11.0 [facility] Comment on above: Performed By: #### L 500.4050, L501.2300, L501.5200, L100.0100 ####[facility] [address] [place], [address] Chloride [Moles/Vol] 104 mmol/L Normal 98-108 [facility] Comment on above: Performed By: #### L 500.4050, L501.2300, L501.5200, L100.0100 ####[facility] [address] [place], [address] CO2 [Moles/Vol] 21.9 mmol/L Normal 21.0-32.0 [facility] Comment on above: Performed By: #### L 500.4050, L501.2300, L501.5200, L100.0100 ####[facility] [address] [place], [address] Creatinine [Mass/Vol] 0.89 mg/dL Normal 0.70-1.20 [facility] Comment on above: Performed By: #### L 500.4050, L501.2300, L501.5200, L100.0100 ####[facility] [address] [place], [address] ECRCL 87.96 ml/min Normal 50-250 [facility] Comment on above: Performed By: #### L 500.4050, L501.2300, L501.5200, L100.0100 ####[facility] [address] [place], [address] GAP 11 Normal 5-15 [facility] Comment on above: Performed By: #### L 500.4050, L501.2300, L501.5200, L100.0100 ####[facility] [address] [place], [address] GFR/1.73 sq M.predicted among non-blacks MDRD (S/P/Bld) [Vol rate/Area] 71 mL/min/{1.73_m2} Normal >60 [facility] Comment on above: Result Comment: mL/m in/1.73m2 CKD-EPI Creatinine Equation (2020) Performed By: #### L 500.4050, L501.2300, L501.5200, L100.0100 ####[facility] [address], [address] Globulin (S) [Mass/Vol] 2.1 g/dL Low 2.2-4.2 [facility] Comment on above: Performed By: #### L 500.4050, L501.2300, L501.5200, L100.0100 ####[facility] [address] [place], [address] Glucose [Mass/Vol] 145 mg/dL High 70-99 [facility] Comment on above: Performed By: #### L 500.4050, L501.2300, L501.5200, L100.0100 ####[facility] [address] [place], [address] Potassium [Moles/Vol] 4.2 mmol/L Normal 3.3-5.1 [facility] Comment on above: Performed By: #### L 500.4050, L501.2300, L501.5200, L100.0100 ####[facility] [address] [place], [address] Sodium [Moles/Vol] 137 mmol/L Normal 133-145 [facility] Comment on above: Performed By: #### L 500.4050, L501.2300, L501.5200, L100.0100 ####[facility] [address] [place], [address] T PROT 6.6 g/dL Normal 5.9-8.4 [facility] Comment on above: Performed By: #### L 500.4050, L501.2300, L501.5200, L100.0100 ####[facility] [address], [address] Urea nitrogen [Mass/Vol] 16 mg/dL Normal 4-19 [facility] Comment on above: Performed By: #### L 500.4050, L501.2300, L501.5200, L100.0100 ####[facility] [address] [place], [address] Eosinophil percentageOrdered By: Chadwick Munson on 11-26-2024 Eosinophils/100 WBC (Bld) 0.2 % 0-5 [facility] Erythrocyte distribution wid th ratioOrdered By: Chadwick Munson on 11-26-2024 Erythrocyte distribution width (RBC) [Ratio] 19.8 % High 11.6-14.6 [facility] Erythrocyte distribution wid th standard deviationOrdered By: Chadwick Munson on 11-26-2024 Erythrocyte distribution width (RBC) [Ratio] 64.8 fl High 35.1-43.9 [facility] Glomerular filtration rate ( GFR) estimation/1.73 sq m using serum, plasma, or whole bOrdered By: Chadwick Munson on 11-26-2024 GFR/1.73 sq M.predicted among non-blacks MDRD (S/P/Bld) [Vol rate/Area] 71 mL/min/{1.73_m2} >60 [facility] Comment on above: mL/min/1.73m2 CKD-EP I Creatinine Equation (2020) Hematocrit Auto (Bld) [Volum e fraction]Ordered By: Chadwick Munson on 11-26-2024 Hematocrit (Bld) [Volume fraction] 38.9 % 37-47 [facility] Hemoglobin measurementOrdere d By: Chadwick Munson on 11-26-2024 Hemoglobin (Bld) [Mass/Vol] 12.8 g/dL 12.0-15.0 [facility] Immature granulocytes/100 WB C Auto (Bld)Ordered By: Chadwick Munson on 11-26-2024 Immature granulocytes/100 WBC (Bld) 1.500 % High 0.0-0.9 [facility] Comment on above: IG% - Immature Granu locytes (promyelocytes, myelocytes and metamyelocytes) > 1% indicates that a LEFT SHIFT is Present. Laboratory - Chemistry and C hemistry - challengeOrdered By: Chadwick Munson on 11-26-2024 AST [Catalytic activity/Vol] 20 U/L <32 [facility] MCV (mean corpuscular volume ) determinationOrdered By: Chadwick Munson on 11-26-2024 MCV (RBC) [Entitic vol] 92.0 fL 81-99 [facility] Magnesiumon 11-26-2024 Magnesium [Mass/Vol] 2.3 mg/dL High 1.5-2.2 [facility] Comment on above: Performed By: #### L 500.4050, L501.2300, L501.5200, L100.0100 ####[facility] [address] [place], [address] Magnesium measurement (mass/ volume)Ordered By: Chadwick Munson on 11-26-2024 Magnesium (Unsp spec) [Mass/Vol] 2.3 mg/dL High 1.5-2.2 [facility] Mean corpuscular hemoglobin (MCH) determinationOrdered By: Chadwick Munson on 11-26-2024 MCH (RBC) [Entitic mass] 30.3 pg 27.0-32.0 [facility] Mean corpuscular hemoglobin concentration (MCHC) determinationOrdered By: Chadwick Munson on 11-26-2024 MCHC (RBC) [Mass/Vol] 32.9 g/dL 32-36 [facility] Mean platelet volume determi nationOrdered By: Chadwick Munson on 11-26-2024 Platelet mean volume (Bld) [Entitic vol] 8.5 fL 6.2-12.0 [facility] Monocyte percentageOrdered B y: Chadwick Munson on 11-26-2024 Monocytes/100 WBC (Bld) 11.2 % High 0-10 [facility] Neutrophil percentageOrdered By: [facility] Munson on 11-26-2024 Neutrophils/100 WBC (Bld) 76.0 % High 47-70 [facility] Nucleated red blood cell per centageOrdered By: Chadwick Munson on 11-26-2024 Nucleated RBC/100 WBC (Bld) [Ratio] 0 % 0-5 [facility] Oncology Visit Reporton 11-15 Oncology Visit Report Normal [facility] Phosphoruson 11-26-2024 Phosphate [Mass/Vol] 3.7 mg/dL Normal 2.7-4.5 [facility] Comment on above: Performed By: #### L 500.4050, L501.2300, L501.5200, L100.0100 ####[facility] [address] [place], [address] Platelet countOrdered By: Kallie Munson on 11-26-2024 Platelets (Bld) [#/Vol] 263 10*3/uL 150-450 [facility] Platelet estimateOrdered By: Chadwick Munson on 11-26-2024 Platelets LM Ql (Bld) ADEQUATE ADEQ [facility] Potassium measurement (mass/ volume)Ordered By: Chadwick Munson on 11-26-2024 Potassium (Unsp spec) [Mass/Vol] 4.2 mmol/L 3.3-5.1 [facility] RBC Auto (Bld) [#/Vol]Ordere d By: Chadwick Munson on 11-26-2024 RBC (Bld) [#/Vol] 4.23 10*6/uL 4.2-5.4 [facility] Serum creatinine measurement (mass/volume)Ordered By: Chadwick Munson on 11-26-2024 Creatinine [Mass/Vol] 0.89 mg/dL 0.70-1.20 [facility] Serum globulin measurementOr dered By: Chadwick Munson on 11-26-2024 Globulin (S) [Mass/Vol] 2.1 g/dL Low 2.2-4.2 [facility] Serum glucose measurement (m ass/volume)Ordered By: Chadwick Munson on 11-26-2024 Glucose [Mass/Vol] 145 mg/dL High 70-99 [facility] Serum or plasma alanine lam otransferase (ALT) measurementOrdered By: Chadwick Munson on 11-26-2024 ALT [Catalytic activity/Vol] 15 U/L <35 [facility] Serum or plasma albumin nicole urement (mass/volume)Ordered By: Chadwick Munson on 11-26-2024 Albumin [Mass/Vol] 4.5 g/dL 3.4-4.8 [facility] Serum or plasma albumin/glob ulin mass ratioOrdered By: iMchealace Munson on 11-26-2024 Albumin/Globulin [Mass ratio] 2.2 {ratio} 0.9-2.4 [facility] Serum or plasma alkaline natanael sphatase measurementOrdered By: Michealace Munson on 11-26-2024 ALP [Catalytic activity/Vol] 87 U/L 35-104 [facility] Serum or plasma calcium nicole urement (mass/volume)Ordered By: Chadwick Munson on 11-26-2024 Calcium [Mass/Vol] 9.0 mg/dL 7.6-11.0 [facility] Serum or plasma urea nitroge n measurement (mass/volume)Ordered By: Chadwick Munson on 11-26-2024 Urea nitrogen [Mass/Vol] 16 mg/dL 4-19 [facility] Sodium levelOrdered By: Micheal ace Jeimy on 11-26-2024 Sodium [Moles/Vol] 137 mmol/L 133-145 [facility] Total proteinOrdered By: [place] Munson on 11-26-2024 Protein [Mass/Vol] 6.6 g/dL 5.9-8.4 [facility] White blood cell (WBC) count Ordered By: Chadwick Munson on 11-26-2024 WBC (Bld) [#/Vol] 18.0 10*3/uL High 4.4-11.0 [facility] CBC W/Diff, Automatedon 10-16 PLT EST SLT DEC Normal ADEQ [facility] Comment on above: Performed By: #### L 100.0100 ####[facility] [address] [place], [address] Absolute lymphocyte countOrd ered By: Chadwick Munson on 11-05-2024 Lymphocytes Auto (Unsp spec) [#/Vol] 1.75 10*3/uL 0.83-4.51 [facility] Absolute neutrophil countOrd ered By: Chadwick Munson on 11-05-2024 Neutrophils (Bld) [#/Vol] 8.6 10*3/uL High 2.0-7.7 [facility] Anion gap in Serum or Plasma Ordered By: Chadwick Munson on 11-05-2024 Anion gap [Moles/Vol] 11 mmol/L 5-15 [facility] Automated lymphocyte count a s percentage of total leukocytesOrdered By: Chadwick Munson on 11-05-2024 Lymphocytes/100 WBC Auto (Unsp spec) 13.9 % Low 19-41 [facility] BUN/creatinine ratioOrdered By: Chadwick Munson on 11-05-2024 Urea nitrogen/Creatinine [Mass ratio] 22.7 mg/mg High 10-20 [facility] Basophil percentageOrdered B y: Chadwick Munson on 11-05-2024 Basophils/100 WBC (Bld) 0.9 % 0-1 [facility] Bilirubin, totalOrdered By: Chadwick Munson on 11-05-2024 Bilirubin [Mass/Vol] 0.54 mg/dL 0.00-1.30 [facility] Blood manual differential co mment interpretation (narrative result)Ordered By: Chadwick Munson on 11-05-2024 Manual differential comment Adams (Bld) [Interp] SCANNED [facility] Comment on above: SLIGHT MONOCYTOSIS N OTED CBC W/Diff, Automatedon 10-16 SMEAR COMMENT SCANNED Normal [facility] Comment on above: Result Comment: SLIG HT MONOCYTOSIS NOTED Performed By: #### L 500.4050, L501.2300, L100.0100, L501.5200 ####[facility] [facility] [address] [place], [place], [id number] Carbon dioxide, total [Moles /volume] in Central venous bloodOrdered By: Chadwick Munson on 11-05-2024 CO2 [Moles/Vol] 25.1 mmol/L 21.0-32.0 [facility] Chloride assayOrdered By: Kallie Munson on 11-05-2024 Chloride [Moles/Vol] 100 mmol/L 98-108 [facility] Comprehensive Metabolic Prof ilon 11-05-2024 Albumin [Mass/Vol] 4.1 g/dL Normal 3.4-4.8 [facility] Comment on above: Performed By: #### L 500.4050, L501.2300, L100.0100, L501.5200 ####[facility] [address] [place], [address] Albumin/Globulin [Mass ratio] 1.4 {ratio} Normal 0.9-2.4 [facility] Comment on above: Performed By: #### L 500.4050, L501.2300, L100.0100, L501.5200 ####[facility] [address] [place], [address] ALK PHOS 72 U/L Normal 35-104 [facility] Comment on above: Performed By: #### L 500.4050, L501.2300, L100.0100, L501.5200 ####[facility] [address] [place], [address] ALT [Catalytic activity/Vol] 7 U/L Normal <=34 [facility] Comment on above: Performed By: #### L 500.4050, L501.2300, L100.0100, L501.5200 ####[facility] [address] [place], [address] AST [Catalytic activity/Vol] 20 U/L Normal <=31 [facility] Comment on above: Performed By: #### L 500.4050, L501.2300, L100.0100, L501.5200 ####[facility] [address] [place], [address] Bilirubin [Mass/Vol] 0.54 mg/dL Normal 0.00-1.30 [facility] Comment on above: Performed By: #### L 500.4050, L501.2300, L100.0100, L501.5200 ####[facility] [address] [place], [address] BUN/CRE 22.7 RATIO High 10-20 [facility] Comment on above: Performed By: #### L 500.4050, L501.2300, L100.0100, L501.5200 ####[facility] [address] [place], [address] Calcium [Mass/Vol] 9.1 mg/dL Normal 7.6-11.0 [facility] Comment on above: Performed By: #### L 500.4050, L501.2300, L100.0100, L501.5200 ####[facility] [address] [place], [address] Chloride [Moles/Vol] 100 mmol/L Normal 98-108 [facility] Comment on above: Performed By: #### L 500.4050, L501.2300, L100.0100, L501.5200 ####[facility] [address] [place], [address] CO2 [Moles/Vol] 25.1 mmol/L Normal 21.0-32.0 [facility] Comment on above: Performed By: #### L 500.4050, L501.2300, L100.0100, L501.5200 ####[facility] [address] [place], [address] Creatinine [Mass/Vol] 0.89 mg/dL Normal 0.70-1.20 [facility] Comment on above: Performed By: #### L 500.4050, L501.2300, L100.0100, L501.5200 ####[facility] [address] [place], [address] ECRCL 55.19 ml/min Normal 50-250 [facility] Comment on above: Performed By: #### L 500.4050, L501.2300, L100.0100, L501.5200 ####[facility] [address] [place], [address] GAP 11 Normal 5-15 [facility] Comment on above: Performed By: #### L 500.4050, L501.2300, L100.0100, L501.5200 ####[facility] [address] [place], [address] GFR/1.73 sq M.predicted among non-blacks MDRD (S/P/Bld) [Vol rate/Area] 71 mL/min/{1.73_m2} Normal >60 [facility] Comment on above: Result Comment: mL/m in/1.73m2 CKD-EPI Creatinine Equation (2020) Performed By: #### L 500.4050, L501.2300, L100.0100, L501.5200 ####[facility] [address] [place], [address] Globulin (S) [Mass/Vol] 2.8 g/dL Normal 2.2-4.2 [facility] Comment on above: Performed By: #### L 500.4050, L501.2300, L100.0100, L501.5200 ####[facility] [address] [place], [address] Glucose [Mass/Vol] 151 mg/dL High 70-99 [facility] Comment on above: Performed By: #### L 500.4050, L501.2300, L100.0100, L501.5200 ####[facility] [address] [place], [address] Potassium [Moles/Vol] 3.9 mmol/L Normal 3.3-5.1 [facility] Comment on above: Performed By: #### L 500.4050, L501.2300, L100.0100, L501.5200 ####[facility] [address] [place], [address] Sodium [Moles/Vol] 136 mmol/L Normal 133-145 [facility] Comment on above: Performed By: #### L 500.4050, L501.2300, L100.0100, L501.5200 ####[facility] [address] [place], [address] T PROT 6.9 g/dL Normal 5.9-8.4 [facility] Comment on above: Performed By: #### L 500.4050, L501.2300, L100.0100, L501.5200 ####[facility] [address] [place], [address] Urea nitrogen [Mass/Vol] 20 mg/dL High 4-19 [facility] Comment on above: Performed By: #### L 500.4050, L501.2300, L100.0100, L501.5200 ####[facility] [address] [place], [address] Eosinophil percentageOrdered By: Chadwick Munson on 11-05-2024 Eosinophils/100 WBC (Bld) 0.2 % 0-5 [facility] Erythrocyte distribution wid th ratioOrdered By: Chadwick Munson on 11-05-2024 Erythrocyte distribution width (RBC) [Ratio] 16.5 % High 11.6-14.6 [facility] Erythrocyte distribution wid th standard deviationOrdered By: Chadwick Munson on 11-05-2024 Erythrocyte distribution width (RBC) [Ratio] 52.0 fl High 35.1-43.9 [facility] Glomerular filtration rate ( GFR) estimation/1.73 sq m using serum, plasma, or whole bOrdered By: Chadwick Munson on 11-05-2024 GFR/1.73 sq M.predicted among non-blacks MDRD (S/P/Bld) [Vol rate/Area] 71 mL/min/{1.73_m2} >60 [facility] Comment on above: mL/min/1.73m2 CKD-EP I Creatinine Equation (2020) Hematocrit Auto (Bld) [Volum e fraction]Ordered By: Chadwick Munson on 11-05-2024 Hematocrit (Bld) [Volume fraction] 40.2 % 37-47 [facility] Hemoglobin measurementOrdere d By: Chadwick Munson on 11-05-2024 Hemoglobin (Bld) [Mass/Vol] 13.3 g/dL 12.0-15.0 [facility] Immature granulocytes/100 WB C Auto (Bld)Ordered By: Chadwick Munson on 11-05-2024 Immature granulocytes/100 WBC (Bld) 0.700 % 0.0-0.9 [facility] Comment on above: IG% - Immature Granu locytes (promyelocytes, myelocytes and metamyelocytes) > 1% indicates that a LEFT SHIFT is Present. Laboratory - Chemistry and C hemistry - challengeOrdered By: Chadwick Munson on 11-05-2024 AST [Catalytic activity/Vol] 20 U/L <32 [facility] MCV (mean corpuscular volume ) determinationOrdered By: Chadwick Munson on 11-05-2024 MCV (RBC) [Entitic vol] 89.3 fL 81-99 [facility] Magnesiumon 11-05-2024 Magnesium [Mass/Vol] 2.3 mg/dL High 1.5-2.2 [facility] Comment on above: Performed By: #### L 500.4050, L501.2300, L100.0100, L501.5200 ####[facility] [address] [place], [address] Magnesium measurement (mass/ volume)Ordered By: Chadwick Munson on 11-05-2024 Magnesium (Unsp spec) [Mass/Vol] 2.3 mg/dL High 1.5-2.2 [facility] Mean corpuscular hemoglobin (MCH) determinationOrdered By: Chadwick Munson on 11-05-2024 MCH (RBC) [Entitic mass] 29.6 pg 27.0-32.0 [facility] Mean corpuscular hemoglobin concentration (MCHC) determinationOrdered By: Chadwick Munson on 11-05-2024 MCHC (RBC) [Mass/Vol] 33.1 g/dL 32-36 [facility] Mean platelet volume determi nationOrdered By: Chadwick Munson on 11-05-2024 Platelet mean volume (Bld) [Entitic vol] 8.5 fL 6.2-12.0 [facility] Monocyte percentageOrdered B y: Chadwick Munson on 11-05-2024 Monocytes/100 WBC (Bld) 15.9 % High 0-10 [facility] Neutrophil percentageOrdered By: Chadwick Munson on 11-05-2024 Neutrophils/100 WBC (Bld) 68.4 % 47-70 [facility] Nucleated red blood cell per centageOrdered By: Chadwick Munson on 11-05-2024 Nucleated RBC/100 WBC (Bld) [Ratio] 0 % 0-5 [facility] Oncology Visit Reporton 10-16 Oncology Visit Report Normal [facility] Phosphoruson 11-05-2024 Phosphate [Mass/Vol] 3.6 mg/dL Normal 2.7-4.5 [facility] Comment on above: Performed By: #### L 500.4050, L501.2300, L100.0100, L501.5200 ####[facility] [address] [place], [place], [address] Platelet countOrdered By: Kallie Munson on 11-05-2024 Platelets (Bld) [#/Vol] 436 10*3/uL 150-450 [facility] Potassium measurement (mass/ volume)Ordered By: Chadwick Munson on 11-05-2024 Potassium (Unsp spec) [Mass/Vol] 3.9 mmol/L 3.3-5.1 [facility] RBC Auto (Bld) [#/Vol]Ordere d By: Chadwick Munson on 11-05-2024 RBC (Bld) [#/Vol] 4.50 10*6/uL 4.2-5.4 [facility] Serum creatinine measurement (mass/volume)Ordered By: Chadwick Munson on 11-05-2024 Creatinine [Mass/Vol] 0.89 mg/dL 0.70-1.20 [facility] Serum globulin measurementOr dered By: Chadwick Munson on 11-05-2024 Globulin (S) [Mass/Vol] 2.8 g/dL 2.2-4.2 [facility] Serum glucose measurement (m ass/volume)Ordered By: Chadwick Munson on 11-05-2024 Glucose [Mass/Vol] 151 mg/dL High 70-99 [facility] Serum or plasma alanine lam otransferase (ALT) measurementOrdered By: Chadwick Munson on 11-05-2024 ALT [Catalytic activity/Vol] 7 U/L <35 [facility] Serum or plasma albumin nicole urement (mass/volume)Ordered By: Chadwick Munson on 11-05-2024 Albumin [Mass/Vol] 4.1 g/dL 3.4-4.8 [facility] Serum or plasma albumin/glob ulin mass ratioOrdered By: Chadwick Munson on 11-05-2024 Albumin/Globulin [Mass ratio] 1.4 {ratio} 0.9-2.4 [facility] Serum or plasma alkaline natanael sphatase measurementOrdered By: Chadwick Munson on 11-05-2024 ALP [Catalytic activity/Vol] 72 U/L 35-104 [facility] Serum or plasma calcium nicole urement (mass/volume)Ordered By: Chadwick Munson on 11-05-2024 Calcium [Mass/Vol] 9.1 mg/dL 7.6-11.0 [facility] Serum or plasma urea nitroge n measurement (mass/volume)Ordered By: Chadwick Munson on 11-05-2024 Urea nitrogen [Mass/Vol] 20 mg/dL High 4-19 [facility] Sodium levelOrdered By: Micheal Munson on 11-05-2024 Sodium [Moles/Vol] 136 mmol/L 133-145 [facility] TSH DL <= 0.005 mIU/L QnOrde red By: Shavonne Blanchard on 11-05-2024 TSH Qn 2.290 uIU/mL 0.300-4.200 [facility] Thyroid Stim Hormone (TSH)on 11-05-2024 TSH 2.290 uIU/mL Normal 0.300-4.200 [facility] Comment on above: Order Comment: ADD O N Performed By: #### L 992.3962 ####[facility] [address] [place], [address] Total proteinOrdered By: Luis Munson on 11-05-2024 Protein [Mass/Vol] 6.9 g/dL 5.9-8.4 [facility] White blood cell (WBC) count Ordered By: Chadwick Munson on 11-05-2024 WBC (Bld) [#/Vol] 12.6 10*3/uL High 4.4-11.0 [facility] CBC W/Diff, Automatedon 10-15 Absolute Neut Normal 2.0-7.7 [facility] Comment on above: Result Comment: REQU EST TO CANCEL ENTERED Performed By: #### L 100.0100, L500.4050 ####[facility] [address] [place], [address] HCT Normal 37-47 [facility] Comment on above: Result Comment: REQU EST TO CANCEL ENTERED Performed By: #### L 100.0100, L500.4050 ####[facility] [address] [place], [address] HGB Normal 12.0-15.0 [facility] Comment on above: Result Comment: REQU EST TO CANCEL ENTERED Performed By: #### L 100.0100, L500.4050 ####[facility] [address] [place], [address] MCH Normal 27.0-32.0 [facility] Comment on above: Result Comment: REQU EST TO CANCEL ENTERED Performed By: #### L 100.0100, L500.4050 ####[facility] [address] [place], [address] MCHC Normal 32-36 [facility] Comment on above: Result Comment: REQU EST TO CANCEL ENTERED Performed By: #### L 100.0100, L500.4050 ####[facility] [address] [place], [address] MCV Normal 81-99 [facility] Comment on above: Result Comment: REQU EST TO CANCEL ENTERED Performed By: #### L 100.0100, L500.4050 ####[facility] [address] [place], [address] NEUT% Normal 47-70 [facility] Comment on above: Result Comment: REQU EST TO CANCEL ENTERED Performed By: #### L 100.0100, L500.4050 ####[facility] [address], [address] PLT Normal 150-450 [facility] Comment on above: Result Comment: REQU EST TO CANCEL ENTERED Performed By: #### L 100.0100, L500.4050 ####[facility] [address], [address] RBC Normal 4.2-5.4 [facility] Comment on above: Result Comment: REQU EST TO CANCEL ENTERED Performed By: #### L 100.0100, L500.4050 ####[facility] [address] [place], [address] RDW CV Normal 11.6-14.6 [facility] Comment on above: Result Comment: REQU EST TO CANCEL ENTERED Performed By: #### L 100.0100, L500.4050 ####[facility] [address] [place], [address] RDW SD Normal 35.1-43.9 [facility] Comment on above: Result Comment: REQU EST TO CANCEL ENTERED Performed By: #### L 100.0100, L500.4050 ####[facility] [address] [place], [address] WBC Normal 4.4-11.0 [facility] Comment on above: Result Comment: REQU EST TO CANCEL ENTERED Performed By: #### L 100.0100, L500.4050 ####[facility] [address] [place], [address] Comprehensive Metabolic Prof ilon 10-30-2024 ALB Normal 3.4-4.8 [facility] Comment on above: Result Comment: REQU EST TO CANCEL ENTERED Performed By: #### L 100.0100, L500.4050 ####[facility] [address] [place], [address] ALK PHOS Normal 35-104 [facility] Comment on above: Result Comment: REQU EST TO CANCEL ENTERED Performed By: #### L 100.0100, L500.4050 ####[facility] [address] [place], [address] ALT Normal <=34 [facility] Comment on above: Result Comment: REQU EST TO CANCEL ENTERED Performed By: #### L 100.0100, L500.4050 ####[facility] [address] [place], [address] AST Normal <=31 [facility] Comment on above: Result Comment: REQU EST TO CANCEL ENTERED Performed By: #### L 100.0100, L500.4050 ####[facility] [address] [place], [address] BUN Normal 4-19 [facility] Comment on above: Result Comment: REQU EST TO CANCEL ENTERED Performed By: #### L 100.0100, L500.4050 ####[facility] [address] [place], [address] BUN/CRE Normal 10-20 [facility] Comment on above: Result Comment: REQU EST TO CANCEL ENTERED Performed By: #### L 100.0100, L500.4050 ####[facility] [address] [place], [address] Calcium Normal 7.6-11.0 [facility] Comment on above: Result Comment: REQU EST TO CANCEL ENTERED Performed By: #### L 100.0100, L500.4050 ####[facility] [address] [place], [address] CL Normal 98-108 [facility] Comment on above: Result Comment: REQU EST TO CANCEL ENTERED Performed By: #### L 100.0100, L500.4050 ####[facility] [address] [place], [address] CO2 Normal 21.0-32.0 [facility] Comment on above: Result Comment: REQU EST TO CANCEL ENTERED Performed By: #### L 100.0100, L500.4050 ####[facility] [address] [place], [address] CREAT,SERUM Normal 0.70-1.20 [facility] Comment on above: Result Comment: REQU EST TO CANCEL ENTERED Performed By: #### L 100.0100, L500.4050 ####[facility] [address] [place], [address] eGFR Normal >60 [facility] Comment on above: Result Comment: REQU EST TO CANCEL ENTERED Performed By: #### L 100.0100, L500.4050 ####[facility] [address] [place], [address] GAP Normal 5-15 [facility] Comment on above: Result Comment: REQU EST TO CANCEL ENTERED Performed By: #### L 100.0100, L500.4050 ####[facility] [address] [place], [address] GLU Normal 70-99 [facility] Comment on above: Result Comment: REQU EST TO CANCEL ENTERED Performed By: #### L 100.0100, L500.4050 ####[facility] [address] [place], [address] Potassium Normal 3.3-5.1 [facility] Comment on above: Result Comment: REQU EST TO CANCEL ENTERED Performed By: #### L 100.0100, L500.4050 ####[facility] [address] [place], [address] T BILI Normal 0.00-1.30 [facility] Comment on above: Result Comment: REQU EST TO CANCEL ENTERED Performed By: #### L 100.0100, L500.4050 ####[facility] [address] [place], [address] T PROT Normal 5.9-8.4 [facility] Comment on above: Result Comment: REQU EST TO CANCEL ENTERED Performed By: #### L 100.0100, L500.4050 ####[facility] [address] [place], [address] Comprehensive Metabolic Profil Normal 133-145 [facility] Comment on above: Result Comment: REQU EST TO CANCEL ENTERED Performed By: #### L 100.0100, L500.4050 ####[facility] [address] [place], [address] Oncology Visit Reporton Oncology Visit Report Normal [facility] Absolute lymphocyte countOrd ered By: Chadwick Munson on 10-08-2024 Lymphocytes Auto (Unsp spec) [#/Vol] 1.60 10*3/uL 0.83-4.51 [facility] Absolute neutrophil countOrd ered By: Chadwick Munson on 10-08-2024 Neutrophils (Bld) [#/Vol] 8.0 10*3/uL High 2.0-7.7 [facility] Anion gap in Serum or Plasma Ordered By: Chadwick Munson on 10-08-2024 Anion gap [Moles/Vol] 10 mmol/L 5-15 [facility] Automated lymphocyte count a s percentage of total leukocytesOrdered By: Chadwick Munson on 10-08-2024 Lymphocytes/100 WBC Auto (Unsp spec) 15.0 % Low 19-41 [facility] BUN/creatinine ratioOrdered By: Chadwick Munson on 10-08-2024 Urea nitrogen/Creatinine [Mass ratio] 13.9 mg/mg 10-20 [facility] Basophil percentageOrdered B y: Chadwick Munson on 10-08-2024 Basophils/100 WBC (Bld) 0.5 % 0-1 [facility] Bilirubin, totalOrdered By: Chadwick Munson on 10-08-2024 Bilirubin [Mass/Vol] 0.72 mg/dL 0.00-1.30 [facility] CBC W/Diff, Automatedon 09-16 Absolute Lymph 1.60 X10 3/uL Normal 0.83-4.51 [facility] Comment on above: Performed By: #### L 501.2300, L501.5200, L100.0100, L500.4050 ####[facility] [address] [place], [address] Absolute Neut 8.0 X10 3/uL High 2.0-7.7 [facility] Comment on above: Performed By: #### L 501.2300, L501.5200, L100.0100, L500.4050 ####[facility] [address] [place], [address] Basophils/100 WBC (Bld) 0.5 % Normal 0-1 [facility] Comment on above: Performed By: #### L 501.2300, L501.5200, L100.0100, L500.4050 ####[facility] [address] [place], [address] Eosinophils/100 WBC (Bld) 0.6 % Normal 0-5 [facility] Comment on above: Performed By: #### L 501.2300, L501.5200, L100.0100, L500.4050 ####[facility] [address] [place], [address] Erythrocyte distribution width (RBC) [Ratio] 13.3 % Normal 11.6-14.6 [facility] Comment on above: Performed By: #### L 501.2300, L501.5200, L100.0100, L500.4050 ####[facility] [address] [place], [address] Hematocrit (Bld) [Volume fraction] 40.6 % Normal 37-47 [facility] Comment on above: Performed By: #### L 501.2300, L501.5200, L100.0100, L500.4050 ####[facility] [address] [place], [address] Hemoglobin (Bld) [Mass/Vol] 13.5 g/dL Normal 12.0-15.0 [facility] Comment on above: Performed By: #### L 501.2300, L501.5200, L100.0100, L500.4050 ####[facility] [address] [place], [address] IG% 0.500 Normal 0.0-0.9 [facility] Comment on above: Result Comment: IG% - Immature Granulocytes (promyelocytes, myelocytes andmetamyelocytes) > 1% indicates that a LEFT SHIFT is Present. Performed By: #### L 501.2300, L501.5200, L100.0100, L500.4050 ####[facility] [address] [place], [address] Lymphocytes/100 WBC (Bld) 15.0 % Low 19-41 [facility] Comment on above: Performed By: #### L 501.2300, L501.5200, L100.0100, L500.4050 ####[facility] [address] [place], [address] MCH (RBC) [Entitic mass] 29.6 pg Normal 27.0-32.0 [facility] Comment on above: Performed By: #### L 501.2300, L501.5200, L100.0100, L500.4050 ####[facility] [address] [place], [address] MCHC (RBC) [Mass/Vol] 33.3 g/dL Normal 32-36 [facility] Comment on above: Performed By: #### L 501.2300, L501.5200, L100.0100, L500.4050 ####[facility] [address] [place], [address] MCV (RBC) [Entitic vol] 89.0 fL Normal 81-99 [facility] Comment on above: Performed By: #### L 501.2300, L501.5200, L100.0100, L500.4050 ####[facility] [address] [place], [address] Monocytes/100 WBC (Bld) 8.6 % Normal 0-10 [facility] Comment on above: Performed By: #### L 501.2300, L501.5200, L100.0100, L500.4050 ####[facility] [address] [place], [address] Neutrophils/100 WBC (Bld) 74.8 % High 47-70 [facility] Comment on above: Performed By: #### L 501.2300, L501.5200, L100.0100, L500.4050 ####[facility] [address] [place], [address] Nucleated RBC (Bld) [#/Vol] 0 10*3/uL Normal 0-5 [facility] Comment on above: Performed By: #### L 501.2300, L501.5200, L100.0100, L500.4050 ####[facility] [address] [place], [address] Platelet mean volume (Bld) [Entitic vol] 8.5 fL Normal 6.2-12.0 [facility] Comment on above: Performed By: #### L 501.2300, L501.5200, L100.0100, L500.4050 ####[facility] [address] [place], [address] Platelets (Bld) [#/Vol] 201 10*3/uL Normal 150-450 [facility] Comment on above: Performed By: #### L 501.2300, L501.5200, L100.0100, L500.4050 ####[facility] [address] [place], [address] RBC (Bld) [#/Vol] 4.56 10*6/uL Normal 4.2-5.4 [facility] Comment on above: Performed By: #### L 501.2300, L501.5200, L100.0100, L500.4050 ####[facility] [address] [place], [address] RDW SD 43.7 fl Normal 35.1-43.9 [facility] Comment on above: Performed By: #### L 501.2300, L501.5200, L100.0100, L500.4050 ####[facility] [address] [place], [address] WBC (Bld) [#/Vol] 10.7 10*3/uL Normal 4.4-11.0 [facility] Comment on above: Performed By: #### L 501.2300, L501.5200, L100.0100, L500.4050 ####[facility] [address] [place], [address] Carbon dioxide, total [Moles /volume] in Central venous bloodOrdered By: Chadwick Munson on 10-08-2024 CO2 [Moles/Vol] 24.0 mmol/L 21.0-32.0 [facility] Chloride assayOrdered By: Kallie Munson on 10-08-2024 Chloride [Moles/Vol] 103 mmol/L 98-108 [facility] Comprehensive Metabolic Prof ilon 10-08-2024 Albumin [Mass/Vol] 4.2 g/dL Normal 3.4-4.8 [facility] Comment on above: Performed By: #### L 501.2300, L501.5200, L100.0100, L500.4050 ####[facility] [address] [place], [address] Albumin/Globulin [Mass ratio] 1.7 {ratio} Normal 0.9-2.4 [facility] Comment on above: Performed By: #### L 501.2300, L501.5200, L100.0100, L500.4050 ####[facility] [address] [place], [address] ALK PHOS 77 U/L Normal 35-104 [facility] Comment on above: Performed By: #### L 501.2300, L501.5200, L100.0100, L500.4050 ####[facility] [address] [place], [address] ALT [Catalytic activity/Vol] 13 U/L Normal <=34 [facility] Comment on above: Performed By: #### L 501.2300, L501.5200, L100.0100, L500.4050 ####[facility] [address] [place], [address] AST [Catalytic activity/Vol] 26 U/L Normal <=31 [facility] Comment on above: Performed By: #### L 501.2300, L501.5200, L100.0100, L500.4050 ####[facility] [address] [place], [address] Bilirubin [Mass/Vol] 0.72 mg/dL Normal 0.00-1.30 [facility] Comment on above: Performed By: #### L 501.2300, L501.5200, L100.0100, L500.4050 ####[facility] [address] [place], [address] BUN/CRE 13.9 RATIO Normal 10-20 [facility] Comment on above: Performed By: #### L 501.2300, L501.5200, L100.0100, L500.4050 ####[facility] [address] [place], [address] Calcium [Mass/Vol] 8.8 mg/dL Normal 7.6-11.0 [facility] Comment on above: Performed By: #### L 501.2300, L501.5200, L100.0100, L500.4050 ####[facility] [address] [place], [address] Chloride [Moles/Vol] 103 mmol/L Normal 98-108 [facility] Comment on above: Performed By: #### L 501.2300, L501.5200, L100.0100, L500.4050 ####[facility] [address] [place], [address] CO2 [Moles/Vol] 24.0 mmol/L Normal 21.0-32.0 [facility] Comment on above: Performed By: #### L 501.2300, L501.5200, L100.0100, L500.4050 ####[facility] [address] [place], [address] Creatinine [Mass/Vol] 0.86 mg/dL Normal 0.70-1.20 [facility] Comment on above: Performed By: #### L 501.2300, L501.5200, L100.0100, L500.4050 ####[facility] [address] [place], [address] ECRCL 57.12 ml/min Normal 50-250 [facility] Comment on above: Performed By: #### L 501.2300, L501.5200, L100.0100, L500.4050 ####[facility] [address] [place], [address] GAP 10 Normal 5-15 [facility] Comment on above: Performed By: #### L 501.2300, L501.5200, L100.0100, L500.4050 ####[facility] [address] [place], [address] GFR/1.73 sq M.predicted among non-blacks MDRD (S/P/Bld) [Vol rate/Area] 74 mL/min/{1.73_m2} Normal >60 [facility] Comment on above: Result Comment: mL/m in/1.73m2 CKD-EPI Creatinine Equation (2020) Performed By: #### L 501.2300, L501.5200, L100.0100, L500.4050 ####[facility] [address] [place], [address] Globulin (S) [Mass/Vol] 2.5 g/dL Normal 2.2-4.2 [facility] Comment on above: Performed By: #### L 501.2300, L501.5200, L100.0100, L500.4050 ####[facility] [address] [place], [address] Glucose [Mass/Vol] 174 mg/dL High 70-99 [facility] Comment on above: Performed By: #### L 501.2300, L501.5200, L100.0100, L500.4050 ####[facility] [address] [place], [address] Potassium [Moles/Vol] 4.4 mmol/L Normal 3.3-5.1 [facility] Comment on above: Performed By: #### L 501.2300, L501.5200, L100.0100, L500.4050 ####[facility] [address] [place], [address] Sodium [Moles/Vol] 137 mmol/L Normal 133-145 [facility] Comment on above: Performed By: #### L 501.2300, L501.5200, L100.0100, L500.4050 ####[facility] [address] [place], [address] T PROT 6.6 g/dL Normal 5.9-8.4 [facility] Comment on above: Performed By: #### L 501.2300, L501.5200, L100.0100, L500.4050 ####[facility] [address] [place], [address] Urea nitrogen [Mass/Vol] 12 mg/dL Normal 4-19 [facility] Comment on above: Performed By: #### L 501.2300, L501.5200, L100.0100, L500.4050 ####[facility] [address] [place], [address] Eosinophil percentageOrdered By: Chadwick Munson on 10-08-2024 Eosinophils/100 WBC (Bld) 0.6 % 0-5 [facility] Erythrocyte distribution wid th ratioOrdered By: [facility] Munson on 10-08-2024 Erythrocyte distribution width (RBC) [Ratio] 13.3 % 11.6-14.6 [facility] Erythrocyte distribution wid th standard deviationOrdered By: [facility] Munson on 10-08-2024 Erythrocyte distribution width (RBC) [Ratio] 43.7 fl 35.1-43.9 [facility] Glomerular filtration rate ( GFR) estimation/1.73 sq m using serum, plasma, or whole bOrdered By: Chadwick Munson on 10-08-2024 GFR/1.73 sq M.predicted among non-blacks MDRD (S/P/Bld) [Vol rate/Area] 74 mL/min/{1.73_m2} >60 [facility] Comment on above: mL/min/1.73m2 CKD-EP I Creatinine Equation (2020) Hematocrit Auto (Bld) [Volum e fraction]Ordered By: Chadwick Munson on 10-08-2024 Hematocrit (Bld) [Volume fraction] 40.6 % 37-47 [facility] Hemoglobin measurementOrdere d By: Chadwick Munson on 10-08-2024 Hemoglobin (Bld) [Mass/Vol] 13.5 g/dL 12.0-15.0 [facility] Immature granulocytes/100 WB C Auto (Bld)Ordered By: Chadwick Munson on 10-08-2024 Immature granulocytes/100 WBC (Bld) 0.500 % 0.0-0.9 [facility] Comment on above: IG% - Immature Granu locytes (promyelocytes, myelocytes and metamyelocytes) > 1% indicates that a LEFT SHIFT is Present. Laboratory - Chemistry and C hemistry - challengeOrdered By: Chadwick Munson on 10-08-2024 AST [Catalytic activity/Vol] 26 U/L <32 [facility] MCV (mean corpuscular volume ) determinationOrdered By: Chadwick Munson on 10-08-2024 MCV (RBC) [Entitic vol] 89.0 fL 81-99 [facility] Magnesiumon 10-08-2024 Magnesium [Mass/Vol] 2.2 mg/dL Normal 1.5-2.2 [facility] Comment on above: Performed By: #### L 501.2300, L501.5200, L100.0100, L500.4050 ####[facility] [address] [place], [address] Magnesium measurement (mass/ volume)Ordered By: Chadwick Munson on 10-08-2024 Magnesium (Unsp spec) [Mass/Vol] 2.2 mg/dL 1.5-2.2 [facility] Mean corpuscular hemoglobin (MCH) determinationOrdered By: Chadwick Munson on 10-08-2024 MCH (RBC) [Entitic mass] 29.6 pg 27.0-32.0 [facility] Mean corpuscular hemoglobin concentration (MCHC) determinationOrdered By: Chadwick Munson on 10-08-2024 MCHC (RBC) [Mass/Vol] 33.3 g/dL 32-36 [facility] Mean platelet volume determi nationOrdered By: Chadwick Munson on 10-08-2024 Platelet mean volume (Bld) [Entitic vol] 8.5 fL 6.2-12.0 [facility] Monocyte percentageOrdered B y: Chadwick Munson on 10-08-2024 Monocytes/100 WBC (Bld) 8.6 % 0-10 [facility] Neutrophil percentageOrdered By: [facility] Mun[facility] on 10-08-2024 Neutrophils/100 WBC (Bld) 74.8 % High 47-70 [facility] Nucleated red blood cell per centageOrdered By: Chadwick Munson on 10-08-2024 Nucleated RBC/100 WBC (Bld) [Ratio] 0 % 0-5 [facility] Oncology Visit Reporton 09-16 Oncology Visit Report Normal [facility] Phosphoruson 10-08-2024 Phosphate [Mass/Vol] 3.6 mg/dL Normal 2.7-4.5 [facility] Comment on above: Performed By: #### L 501.2300, L501.5200, L100.0100, L500.4050 ####[facility] [address] [place], [address] Platelet countOrdered By: Kallie Munson on 10-08-2024 Platelets (Bld) [#/Vol] 201 10*3/uL 150-450 [facility] Potassium measurement (mass/ volume)Ordered By: Chadwick Munson on 10-08-2024 Potassium (Unsp spec) [Mass/Vol] 4.4 mmol/L 3.3-5.1 [facility] RBC Auto (Bld) [#/Vol]Ordere d By: Chadwick Munson on 10-08-2024 RBC (Bld) [#/Vol] 4.56 10*6/uL 4.2-5.4 [facility] Serum creatinine measurement (mass/volume)Ordered By: Chadwick Munson on 10-08-2024 Creatinine [Mass/Vol] 0.86 mg/dL 0.70-1.20 [facility] Serum globulin measurementOr dered By: Chadwick Munson on 10-08-2024 Globulin (S) [Mass/Vol] 2.5 g/dL 2.2-4.2 [facility] Serum glucose measurement (m ass/volume)Ordered By: Chadwick Munson on 10-08-2024 Glucose [Mass/Vol] 174 mg/dL High 70-99 [facility] Serum or plasma alanine lam otransferase (ALT) measurementOrdered By: Chadwick Munson on 10-08-2024 ALT [Catalytic activity/Vol] 13 U/L <35 [facility] Serum or plasma albumin nicole urement (mass/volume)Ordered By: Chadwick Munson on 10-08-2024 Albumin [Mass/Vol] 4.2 g/dL 3.4-4.8 [facility] Serum or plasma albumin/glob ulin mass ratioOrdered By: Chadwick Munson on 10-08-2024 Albumin/Globulin [Mass ratio] 1.7 {ratio} 0.9-2.4 [facility] Serum or plasma alkaline natanael sphatase measurementOrdered By: Chadwick Munson on 10-08-2024 ALP [Catalytic activity/Vol] 77 U/L 35-104 [facility] Serum or plasma calcium nicole urement (mass/volume)Ordered By: Chadwick Munson on 10-08-2024 Calcium [Mass/Vol] 8.8 mg/dL 7.6-11.0 [facility] Serum or plasma urea nitroge n measurement (mass/volume)Ordered By: Chadwick Munson on 10-08-2024 Urea nitrogen [Mass/Vol] 12 mg/dL 4-19 [facility] Sodium levelOrdered By: Micheal Munson on 10-08-2024 Sodium [Moles/Vol] 137 mmol/L 133-145 [facility] Total proteinOrdered By: uLis Munson on 10-08-2024 Protein [Mass/Vol] 6.6 g/dL 5.9-8.4 [facility] White blood cell (WBC) count Ordered By: Chadwick Munson on 10-08-2024 WBC (Bld) [#/Vol] 10.7 10*3/uL 4.4-11.0 [facility] Surgery Visit Reporton 10-04 Surgery Visit Report Normal [facility] Chest 1 View (Portable)on Chest 1 View (Portable) Normal [facility] Discharge Instructionon 09-15 Discharge Instruction Normal [facility] MR/POSTOP.ANEon 10-02-2024 MR/POSTOP.ANE Normal [facility] MR/EEMFSDUB6gu 10-02-2024 MR/POSTOPAN2 Normal [facility] Operative Reporton Operative Report Normal [facility] MR/PAT.ANEon 09-30-2024 MR/PAT.ANE Normal [facility] Oncology Visit Reporton 09-15 Oncology Visit Report Normal [facility] Surgery Visit Reporton 09-27 Surgery Visit Report Normal [facility] Oncology Visit Reporton 09-15 Oncology Visit Report Normal [facility] PET/CT Tumor Base -Thigh Sub son 09-17-2024 PET/CT Tumor Base -Thigh Subs Normal [facility] Absolute lymphocyte countOrd ered By: Lynda Alonso on 09-11-2024 Lymphocytes Auto (Unsp spec) [#/Vol] 1.72 10*3/uL 0.83-4.51 [facility] Absolute neutrophil countOrd ered By: Lynda Alonso on 09-11-2024 Neutrophils (Bld) [#/Vol] 6.2 10*3/uL 2.0-7.7 [facility] Anion gap in Serum or Plasma Ordered By: Lynda Alonso on 09-11-2024 Anion gap [Moles/Vol] 12 mmol/L - [facility] Automated lymphocyte count a s percentage of total leukocytesOrdered By: Lynda Alonso on 09-11-2024 Lymphocytes/100 WBC Auto (Unsp spec) 19.5 % - [facility] BUN/creatinine ratioOrdered By: Lynda Alonso on 09-11-2024 Urea nitrogen/Creatinine [Mass ratio] 14.7 mg/mg 10- [facility] Basophil percentageOrdered B y: Lynda Alonso on 09-11-2024 Basophils/100 WBC (Bld) 0.7 % 0-1 [facility] Bilirubin, totalOrdered By: Lynda Alonso on 09-11-2024 Bilirubin [Mass/Vol] 0.70 mg/dL 0.00-1.30 [facility] CBC W/Diff, Automatedon 08-16 Absolute Lymph 1.72 X10 3/uL Normal 0.83-4.51 [facility] Comment on above: Order Comment: Order Date: 09/11/24Order Info: 4-1 - CBCD Performed By: #### L 100.0100 ####[facility] [address] [place], [address] Absolute Neut 6.2 X10 3/uL Normal 2.0-7.7 [facility] Comment on above: Order Comment: Order Date: 09/11/24Order Info: 4-1 - CBCD Performed By: #### L 100.0100 ####[facility] [address] [place], [address] Basophils/100 WBC (Bld) 0.7 % Normal 0-1 [facility] Comment on above: Order Comment: Order Date: 09/11/24Order Info: 4-1 - CBCD Performed By: #### L 100.0100 ####[facility] [address] [place], [address] Eosinophils/100 WBC (Bld) 0.9 % Normal 0-5 [facility] Comment on above: Order Comment: Order Date: 09/11/24Order Info: 0184-1 - CBCD Performed By: #### L 100.0100 ####[facility] [address] [place], [address] Erythrocyte distribution width (RBC) [Ratio] 12.7 % Normal 11.6-14.6 [facility] Comment on above: Order Comment: Order Date: 09/11/24Order Info: 0184-1 - CBCD Performed By: #### L 100.0100 ####[facility] [address] [place], [address] Hematocrit (Bld) [Volume fraction] 44.2 % Normal 37-47 [facility] Comment on above: Order Comment: Order Date: 09/11/24Order Info: 0184-1 - CBCD Performed By: #### L 100.0100 ####[facility] [address] [place], [address] Hemoglobin (Bld) [Mass/Vol] 14.6 g/dL Normal 12.0-15.0 [facility] Comment on above: Order Comment: Order Date: 09/11/24Order Info: 0184-1 - CBCD Performed By: #### L 100.0100 ####[facility] [address] [place], [address] IG% 0.300 Normal 0.0-0.9 [facility] Comment on above: Order Comment: Order Date: 09/11/24Order Info: 0184-1 - CBCD Result Comment: IG% - Immature Granulocytes (promyelocytes, myelocytes andmetamyelocytes) > 1% indicates that a LEFT SHIFT is Present. Performed By: #### L 100.0100 ####[facility] [address] [place], [address] Lymphocytes/100 WBC (Bld) 19.5 % Normal 19-41 [facility] Comment on above: Order Comment: Order Date: 09/11/24Order Info: 0184-1 - CBCD Performed By: #### L 100.0100 ####[facility] [address] [place], [address] MCH (RBC) [Entitic mass] 30.5 pg Normal 27.0-32.0 [facility] Comment on above: Order Comment: Order Date: 09/11/24Order Info: 0184-1 - CBCD Performed By: #### L 100.0100 ####[facility] [address] [place], [address] MCHC (RBC) [Mass/Vol] 33.0 g/dL Normal 32-36 [facility] Comment on above: Order Comment: Order Date: 09/11/24Order Info: 0184-1 - CBCD Performed By: #### L 100.0100 ####[facility] [address] [place], [address] MCV (RBC) [Entitic vol] 92.5 fL Normal 81-99 [facility] Comment on above: Order Comment: Order Date: 09/11/24Order Info: 0184-1 - CBCD Performed By: #### L 100.0100 ####[facility] [address] [place], [address] Monocytes/100 WBC (Bld) 8.6 % Normal 0-10 [facility] Comment on above: Order Comment: Order Date: 09/11/24Order Info: 0184-1 - CBCD Performed By: #### L 100.0100 ####[facility] [address] [place], [address] Neutrophils/100 WBC (Bld) 70.0 % Normal 47-70 [facility] Comment on above: Order Comment: Order Date: 09/11/24Order Info: 0184-1 - CBCD Performed By: #### L 100.0100 ####[facility] [address] [place], [address] Nucleated RBC (Bld) [#/Vol] 0 10*3/uL Normal 0-5 [facility] Comment on above: Order Comment: Order Date: 09/11/24Order Info: 0184-1 - CBCD Performed By: #### L 100.0100 ####[facility] [address] [place], [address] Platelet mean volume (Bld) [Entitic vol] 9.3 fL Normal 6.2-12.0 [facility] Comment on above: Order Comment: Order Date: 09/11/24Order Info: 0184-1 - CBCD Performed By: #### L 100.0100 ####[facility] [address] [place], [address] Platelets (Bld) [#/Vol] 244 10*3/uL Normal 150-450 [facility] Comment on above: Order Comment: Order Date: 09/11/24Order Info: 4-1 - CBCD Performed By: #### L 100.0100 ####[facility] [address] [place], [address] RBC (Bld) [#/Vol] 4.78 10*6/uL Normal 4.2-5.4 [facility] Comment on above: Order Comment: Order Date: 09/11/24Order Info: 183- - CBCD Performed By: #### L 100.0100 ####[facility] [address] [place], [address] RDW SD 43.7 fl Normal 35.1-43.9 [facility] Comment on above: Order Comment: Order Date: 09/11/24Order Info: 183- - CBCD Performed By: #### L 100.0100 ####[facility] [address] [place], [address] WBC (Bld) [#/Vol] 8.8 10*3/uL Normal 4.4-11.0 [facility] Comment on above: Order Comment: Order Date: 09/11/24Order Info: 018-1 - CBCD Performed By: #### L 100.0100 ####[facility] [address] [place], [address] Carbon dioxide, total [Moles /volume] in Central venous bloodOrdered By: Lynda Alonso on 09-11-2024 CO2 [Moles/Vol] 25.0 mmol/L 21.0-32.0 [facility] Chloride assayOrdered By: Franc Alonso on 09-11-2024 Chloride [Moles/Vol] 99 mmol/L 98-108 [facility] Comprehensive Metabolic Prof ilon 09-11-2024 Albumin [Mass/Vol] 4.3 g/dL Normal 3.4-4.8 [facility] Comment on above: Order Comment: Order Date: 09/11/24Order Info: 0786-1 - CMPOrder Info: [id number] - MGOrder Info: 3016-3 - TSH Performed By: #### L 500.4050 ####[facility] [address] [place], [address] Albumin/Globulin [Mass ratio] 1.4 {ratio} Normal 0.9-2.4 [facility] Comment on above: Order Comment: Order Date: 09/11/24Order Info: 0786-1 - CMPOrder Info: [id number] - MGOrder Info: 3016-3 - TSH Performed By: #### L 500.4050 ####[facility] [address], [address] ALK PHOS 107 U/L High 35-104 [facility] Comment on above: Order Comment: Order Date: 09/11/24Order Info: 0786-1 - CMPOrder Info: [id number] - MGOrder Info: 3016-3 - TSH Performed By: #### L 500.4050 ####[facility] [address] [place], [place], [address] ALT [Catalytic activity/Vol] 18 U/L Normal <=34 [facility] Comment on above: Order Comment: Order Date: 09/11/24Order Info: 0786-1 - CMPOrder Info: [id number] - MGOrder Info: 3016-3 - TSH Performed By: #### L 500.4050 ####[facility] [address] [place], [address] AST [Catalytic activity/Vol] 30 U/L Normal <=31 [facility] Comment on above: Order Comment: Order Date: 09/11/24Order Info: 0786-1 - CMPOrder Info: [id number] - MGOrder Info: 3016-3 - TSH Performed By: #### L 500.4050 ####[facility] [address] [place], [address] Bilirubin [Mass/Vol] 0.70 mg/dL Normal 0.00-1.30 [facility] Comment on above: Order Comment: Order Date: 09/11/24Order Info: 0786-1 - CMPOrder Info: [id number] - MGOrder Info: 3016-3 - TSH Performed By: #### L 500.4050 ####[facility] [address] [place], [address] BUN/CRE 14.7 RATIO Normal 10-20 [facility] Comment on above: Order Comment: Order Date: 09/11/24Order Info: 0786-1 - CMPOrder Info: [id number] - MGOrder Info: 3015-3 - TSH Performed By: #### L 500.4050 ####[facility] [address] [place], [address] Calcium [Mass/Vol] 9.3 mg/dL Normal 7.6-11.0 [facility] Comment on above: Order Comment: Order Date: 09/11/24Order Info: 0786-1 - CMPOrder Info: [id number] - MGOrder Info: 3015-3 - TSH Performed By: #### L 500.4050 ####[facility] [address] [place], [address] Chloride [Moles/Vol] 99 mmol/L Normal 98-108 [facility] Comment on above: Order Comment: Order Date: 09/11/24Order Info: 0786-1 - CMPOrder Info: [id number] - MGOrder Info: 3016-3 - TSH Performed By: #### L 500.4050 ####[facility] [address] [place], [address] CO2 [Moles/Vol] 25.0 mmol/L Normal 21.0-32.0 [facility] Comment on above: Order Comment: Order Date: 09/11/24Order Info: 0786-1 - CMPOrder Info: [id number] - MGOrder Info: 3016-3 - TSH Performed By: #### L 500.4050 ####[facility] [address] [place], [address] Creatinine [Mass/Vol] 0.97 mg/dL Normal 0.70-1.20 [facility] Comment on above: Order Comment: Order Date: 09/11/24Order Info: 86-1 - CMPOrder Info: [id number] - MGOrder Info: 3016-3 - TSH Performed By: #### L 500.4050 ####[facility] [address] [place], [address] GAP 12 Normal 5-15 [facility] Comment on above: Order Comment: Order Date: 09/11/24Order Info: 785-1 - CMPOrder Info: [id number] - MGOrder Info: 3016-3 - TSH Performed By: #### L 500.4050 ####[facility] [address] [place], [address] GFR/1.73 sq M.predicted among non-blacks MDRD (S/P/Bld) [Vol rate/Area] 64 mL/min/{1.73_m2} Normal >60 [facility] Comment on above: Order Comment: Order Date: 09/11/24Order Info: 86-1 - CMPOrder Info: [id number] - MGOrder Info: 3016-3 - TSH Result Comment: mL/m in/1.73m2 CKD-EPI Creatinine Equation (2020) Performed By: #### L 500.4050 ####[facility] [address] [place], [address] Globulin (S) [Mass/Vol] 3.2 g/dL Normal 2.2-4.2 [facility] Comment on above: Order Comment: Order Date: 05/28/25Order Info: 0786-1 - CMPOrder Info: [id number] - MGOrder Info: 3016-3 - TSH Performed By: #### L 500.4050 ####[facility] [address] [place], [address] Glucose [Mass/Vol] 149 mg/dL High 70-99 [facility] Comment on above: Order Comment: Order Date: 09/11/24Order Info: 0786-1 - CMPOrder Info: [id number] - MGOrder Info: 3016-3 - TSH Performed By: #### L 500.4050 ####[facility] [address] [place], [address] Potassium [Moles/Vol] 4.0 mmol/L Normal 3.3-5.1 [facility] Comment on above: Order Comment: Order Date: 09/11/24Order Info: 0786-1 - CMPOrder Info: [id number] - MGOrder Info: 6-3 - TSH Performed By: #### L 500.4050 ####[facility] [address], [address] Sodium [Moles/Vol] 136 mmol/L Normal 133-145 [facility] Comment on above: Order Comment: Order Date: 09/11/24Order Info: 0786-1 - CMPOrder Info: [id number] - MGOrder Info: 3016-3 - TSH Performed By: #### L 500.4050 ####[facility] [address] [place], [address] T PROT 7.4 g/dL Normal 5.9-8.4 [facility] Comment on above: Order Comment: Order Date: 09/11/24Order Info: 0786-1 - CMPOrder Info: [id number] - MGOrder Info: 3016-3 - TSH Performed By: #### L 500.4050 ####[facility] [address] [place], [address] Urea nitrogen [Mass/Vol] 14 mg/dL Normal 4-19 [facility] Comment on above: Order Comment: Order Date: 09/11/24Order Info: 0786-1 - CMPOrder Info: [id number] - MGOrder Info: 3016-3 - TSH Performed By: #### L 500.4050 ####[facility] [address] [place], [address] Eosinophil percentageOrdered By: Lynda Alonso on 09-11-2024 Eosinophils/100 WBC (Bld) 0.9 % 0-5 [facility] Erythrocyte distribution wid th ratioOrdered By: [facility] on 09-11-2024 Erythrocyte distribution width (RBC) [Ratio] 12.7 % 11.6-14.6 [facility] Erythrocyte distribution wid th standard deviationOrdered By: [facility] Hospitalmelanie Celeste on 09-11-2024 Erythrocyte distribution width (RBC) [Ratio] 43.7 fl 35.1-43.9 [facility] Glomerular filtration rate ( GFR) estimation/1.73 sq m using serum, plasma, or whole bOrdered By: [facility] Hospitalmelanie Alonso on 09-11-2024 GFR/1.73 sq M.predicted among non-blacks MDRD (S/P/Bld) [Vol rate/Area] 64 mL/min/{1.73_m2} >60 [facility] Comment on above: mL/min/1.73m2 CKD-EP I Creatinine Equation (2020) Hematocrit Auto (Bld) [Volum e fraction]Ordered By: [facility] Hospitalmelanie Alonso on 09-11-2024 Hematocrit (Bld) [Volume fraction] 44.2 % 37-47 [facility] Hemoglobin measurementOrdere d By: Lynda Alonso on 09-11-2024 Hemoglobin (Bld) [Mass/Vol] 14.6 g/dL 12.0-15.0 [facility] Immature granulocytes/100 WB C Auto (Bld)Ordered By: Lynda Alonso on 09-11-2024 Immature granulocytes/100 WBC (Bld) 0.300 % 0.0-0.9 [facility] Comment on above: IG% - Immature Granu locytes (promyelocytes, myelocytes and metamyelocytes) > 1% indicates that a LEFT SHIFT is Present. Laboratory - Chemistry and C hemistry - challengeOrdered By: Lynda Alonso on 09-11-2024 AST [Catalytic activity/Vol] 30 U/L <32 [facility] MCV (mean corpuscular volume ) determinationOrdered By: Lynda Alonso on 09-11-2024 MCV (RBC) [Entitic vol] 92.5 fL 81-99 [facility] Magnesiumon 09-11-2024 Magnesium [Mass/Vol] 2.2 mg/dL Normal 1.5-2.2 [facility] Comment on above: Order Comment: Order Date: 09/11/24Order Info: 0786-1 - CMPOrder Info: [id number] - MGOrder Info: 3016-3 - TSH Performed By: #### L 501.5200 ####[facility] [address] [place], [address] Magnesium measurement (mass/ volume)Ordered By: Lynda Alonso on 09-11-2024 Magnesium (Unsp spec) [Mass/Vol] 2.2 mg/dL 1.5-2.2 [facility] Mean corpuscular hemoglobin (MCH) determinationOrdered By: Lynda Alonso on 09-11-2024 MCH (RBC) [Entitic mass] 30.5 pg 27.0-32.0 [facility] Mean corpuscular hemoglobin concentration (MCHC) determinationOrdered By: Lynda Alonso on 09-11-2024 MCHC (RBC) [Mass/Vol] 33.0 g/dL 32-36 [facility] Mean platelet volume determi nationOrdered By: Lynda Alonso on 09-11-2024 Platelet mean volume (Bld) [Entitic vol] 9.3 fL 6.2-12.0 [facility] Monocyte percentageOrdered B y: Lynda Alonso on 09-11-2024 Monocytes/100 WBC (Bld) 8.6 % 0-10 [facility] Neutrophil percentageOrdered By: Lynda Alonso on 09-11-2024 Neutrophils/100 WBC (Bld) 70.0 % 47-70 [facility] Nucleated red blood cell per centageOrdered By: Lynda Alonso on 09-11-2024 Nucleated RBC/100 WBC (Bld) [Ratio] 0 % 0-5 [facility] Oncology Visit Reporton 08-16 Oncology Visit Report Normal [facility] Platelet countOrdered By: Franc Alonso on 09-11-2024 Platelets (Bld) [#/Vol] 244 10*3/uL 150-450 [facility] Potassium measurement (mass/ volume)Ordered By: Lynda Alonso on 09-11-2024 Potassium (Unsp spec) [Mass/Vol] 4.0 mmol/L 3.3-5.1 [facility] RBC Auto (Bld) [#/Vol]Ordere d By: Lynda Alonso on 09-11-2024 RBC (Bld) [#/Vol] 4.78 10*6/uL 4.2-5.4 [facility] Serum creatinine measurement (mass/volume)Ordered By: Lynda Alonso on 09-11-2024 Creatinine [Mass/Vol] 0.97 mg/dL 0.70-1.20 [facility] Serum globulin measurementOr dered By: Lynda Alonso on 09-11-2024 Globulin (S) [Mass/Vol] 3.2 g/dL 2.2-4.2 [facility] Serum glucose measurement (m ass/volume)Ordered By: Lynda Alonso on 09-11-2024 Glucose [Mass/Vol] 149 mg/dL High 70-99 [facility] Serum or plasma alanine lam otransferase (ALT) measurementOrdered By: Lynda Alonso on 09-11-2024 ALT [Catalytic activity/Vol] 18 U/L <35 [facility] Serum or plasma albumin nicole urement (mass/volume)Ordered By: Lynda Alonso on 09-11-2024 Albumin [Mass/Vol] 4.3 g/dL 3.4-4.8 [facility] Serum or plasma albumin/glob ulin mass ratioOrdered By: Lynda Alonso on 09-11-2024 Albumin/Globulin [Mass ratio] 1.4 {ratio} 0.9-2.4 [facility] Serum or plasma alkaline natanael sphatase measurementOrdered By: Lynda Alonso on 09-11-2024 ALP [Catalytic activity/Vol] 107 U/L High 35-104 [facility] Serum or plasma calcium nicole urement (mass/volume)Ordered By: Lynda Clarkke on 09-11-2024 Calcium [Mass/Vol] 9.3 mg/dL 7.6-11.0 [facility] Serum or plasma urea nitroge n measurement (mass/volume)Ordered By: Lynda Clarkke on 09-11-2024 Urea nitrogen [Mass/Vol] 14 mg/dL 4-19 [facility] Sodium levelOrdered By: Vivi Alonso on 09-11-2024 Sodium [Moles/Vol] 136 mmol/L 133-145 [facility] TSH DL <= 0.005 mIU/L QnOrde red By: Lynda Clarkke on 09-11-2024 TSH Qn 2.390 uIU/mL 0.300-4.200 [facility] Thyroid Stim Hormone (TSH)on 09-11-2024 TSH 2.390 uIU/mL Normal 0.300-4.200 [facility] Comment on above: Order Comment: Order Date: 09/11/24Order Info: [id number] - CMPOrder Info: [id number] - MGOrder Info: [id number] - TSH Performed By: #### L 501.9520 ####[facility] [address] [place], [place], [id number] Total proteinOrdered By: Rhonda Alonso on 09-11-2024 Protein [Mass/Vol] 7.4 g/dL 5.9-8.4 [facility] Vitamin D,25 Hydroxyon 09-11 Vitamin D 25-OH 27.4 ng/mL Low 30-100 [facility] Comment on above: Order Comment: Order Date: 09/11/24Order Info: [id number] - CMPOrder Info: [id number] - MGOrder Info: [id number] - TSH Result Comment: Loren min D StatusDeficiency: <20 ng/mL (50nmol/L)Insufficiency: 20-30 ng/mL (50-75 nmol/L)Sufficiency: 30-100 ng/mL (75-250 nmol/L)Toxicity: >100 ng/mL (>250 nmol/L) Performed By: #### L 506.1001 ####[facility] [address] [place], [place], [id number] White blood cell (WBC) count Ordered By: Lynda Alonso on 09-11-2024 WBC (Bld) [#/Vol] 8.8 10*3/uL 4.4-11.0 [facility] Surgical pathology reportOrd ered By: Amada Carrasco on 09-05-2024 Surgical pathology study [facility] Absolute lymphocyte countOrd ered By: Manny Alarcon on 09-03-2024 Lymphocytes Auto (Unsp spec) [#/Vol] 1.91 10*3/uL 0.83-4.51 [facility] Absolute neutrophil countOrd ered By: Manny Alarcon on 09-03-2024 Neutrophils (Bld) [#/Vol] 7.0 10*3/uL 2.0-7.7 [facility] Activated partial thrombopla stin time (aPTT) in platelet poor plasma by coagulation aOrdered By: Manny Alarcon on 09-03-2024 aPTT Coag (PPP) [Time] 24.4 s 24.1-36.2 [facility] Automated lymphocyte count a s percentage of total leukocytesOrdered By: Manny Alarcon on 09-03-2024 Lymphocytes/100 WBC Auto (Unsp spec) 18.6 % Low 19-41 [facility] Basophil percentageOrdered B y: Manny Alarcon on 09-03-2024 Basophils/100 WBC (Bld) 0.9 % 0-1 [facility] Biopsy/Inj or Needle Placeme nton 09-03-2024 Biopsy/Inj or Needle Placement Normal [facility] CBC W/Diff, Automatedon 08-16 Absolute Lymph 1.91 X10 3/uL Normal 0.83-4.51 [facility] Comment on above: Performed By: #### L 300.4310, L300.3900, L100.0100 ####[facility] [address], [address] Absolute Neut 7.0 X10 3/uL Normal 2.0-7.7 [facility] Comment on above: Performed By: #### L 300.4310, L300.3900, L100.0100 ####[facility] [address] [place], [address] Basophils/100 WBC (Bld) 0.9 % Normal 0-1 [facility] Comment on above: Performed By: #### L 300.4310, L300.3900, L100.0100 ####[facility] [address] [place], [address] Eosinophils/100 WBC (Bld) 1.2 % Normal 0-5 [facility] Comment on above: Performed By: #### L 300.4310, L300.3900, L100.0100 ####[facility] [address] [place], [address] Erythrocyte distribution width (RBC) [Ratio] 13.0 % Normal 11.6-14.6 [facility] Comment on above: Performed By: #### L 300.4310, L300.3900, L100.0100 ####[facility] [address] [place], [address] Hematocrit (Bld) [Volume fraction] 48.7 % High 37-47 [facility] Comment on above: Performed By: #### L 300.4310, L300.3900, L100.0100 ####[facility] [address] [place], [address] Hemoglobin (Bld) [Mass/Vol] 15.7 g/dL High 12.0-15.0 [facility] Comment on above: Performed By: #### L 300.4310, L300.3900, L100.0100 ####[facility] [address] [place], [address] IG% 0.700 Normal 0.0-0.9 [facility] Comment on above: Result Comment: IG% - Immature Granulocytes (promyelocytes, myelocytes andmetamyelocytes) > 1% indicates that a LEFT SHIFT is Present. Performed By: #### L 300.4310, L300.3900, L100.0100 ####[facility] [address] [place], [address] Lymphocytes/100 WBC (Bld) 18.6 % Low 19-41 [facility] Comment on above: Performed By: #### L 300.4310, L300.3900, L100.0100 ####[facility] [address] [place], [address] MCH (RBC) [Entitic mass] 30.5 pg Normal 27.0-32.0 [facility] Comment on above: Performed By: #### L 300.4310, L300.3900, L100.0100 ####[facility] [address] [place], [address] MCHC (RBC) [Mass/Vol] 32.2 g/dL Normal 32-36 [facility] Comment on above: Performed By: #### L 300.4310, L300.3900, L100.0100 ####[facility] [address] [place], [address] MCV (RBC) [Entitic vol] 94.7 fL Normal 81-99 [facility] Comment on above: Performed By: #### L 300.4310, L300.3900, L100.0100 ####[facility] [address] [place], [address] Monocytes/100 WBC (Bld) 10.1 % High 0-10 [facility] Comment on above: Performed By: #### L 300.4310, L300.3900, L100.0100 ####[facility] [address] [place], [address] Neutrophils/100 WBC (Bld) 68.5 % Normal 47-70 [facility] Comment on above: Performed By: #### L 300.4310, L300.3900, L100.0100 ####[facility] [address] [place], [address] Nucleated RBC (Bld) [#/Vol] 0 10*3/uL Normal 0-5 [facility] Comment on above: Performed By: #### L 300.4310, L300.3900, L100.0100 ####[facility] [address] [place], [address] Platelet mean volume (Bld) [Entitic vol] 8.4 fL Normal 6.2-12.0 [facility] Comment on above: Performed By: #### L 300.4310, L300.3900, L100.0100 ####[facility] [address] [place], [address] Platelets (Bld) [#/Vol] 283 10*3/uL Normal 150-450 [facility] Comment on above: Performed By: #### L 300.4310, L300.3900, L100.0100 ####[facility] [address] [place], [address] RBC (Bld) [#/Vol] 5.14 10*6/uL Normal 4.2-5.4 [facility] Comment on above: Performed By: #### L 300.4310, L300.3900, L100.0100 ####[facility] [address] [place], [address] RDW SD 45.4 fl High 35.1-43.9 [facility] Comment on above: Performed By: #### L 300.4310, L300.3900, L100.0100 ####[facility] [address] [place], [address] WBC (Bld) [#/Vol] 10.3 10*3/uL Normal 4.4-11.0 [facility] Comment on above: Performed By: #### L 300.4310, L300.3900, L100.0100 ####[facility] [address] [place], [place], [address] Chest Insp/Exp 2 Viewon 08-16 Chest Insp/Exp 2 View Normal [facility] Chest Insp/Exp 2 View Normal [facility] Eosinophil percentageOrdered By: Mannybambi Alarcon on 09-03-2024 Eosinophils/100 WBC (Bld) 1.2 % 0-5 [facility] Erythrocyte distribution wid th ratioOrdered By: Mannynatalya Alarcon on 09-03-2024 Erythrocyte distribution width (RBC) [Ratio] 13.0 % 11.6-14.6 [facility] Erythrocyte distribution wid th standard deviationOrdered By: Mannynatalya Alarcon on 09-03-2024 Erythrocyte distribution width (RBC) [Ratio] 45.4 fl High 35.1-43.9 [facility] Hematocrit Auto (Bld) [Volum e fraction]Ordered By: Mannynatalya Alarcon on 09-03-2024 Hematocrit (Bld) [Volume fraction] 48.7 % High 37-47 [facility] Hemoglobin measurementOrdere d By: Mannynatalya Alarcon on 09-03-2024 Hemoglobin (Bld) [Mass/Vol] 15.7 g/dL High 12.0-15.0 [facility] Immature granulocytes/100 WB C Auto (Bld)Ordered By: Manny Alarcon on 09-03-2024 Immature granulocytes/100 WBC (Bld) 0.700 % 0.0-0.9 [facility] Comment on above: IG% - Immature Granu locytes (promyelocytes, myelocytes and metamyelocytes) > 1% indicates that a LEFT SHIFT is Present. Immunohistochemical Stainson 09-03-2024 Immunohistochemical Stains Normal [facility] Comment on above: Performed By: #### P IMHI ####[facility] [address] [place], [place], [id number] International normalized rat io (INR) calculationOrdered By: Manny Alarcon on 09-03-2024 INR Coag (Bld) [Relative time] 0.9 {INR} [facility] MCV (mean corpuscular volume ) determinationOrdered By: Manny Alarcon on 09-03-2024 MCV (RBC) [Entitic vol] 94.7 fL 81-99 [facility] Mean corpuscular hemoglobin (MCH) determinationOrdered By: Manny Alarcon on 09-03-2024 MCH (RBC) [Entitic mass] 30.5 pg 27.0-32.0 [facility] Mean corpuscular hemoglobin concentration (MCHC) determinationOrdered By: Manny Alarcon on 09-03-2024 MCHC (RBC) [Mass/Vol] 32.2 g/dL 32-36 [facility] Mean platelet volume determi nationOrdered By: Manny Alarcon on 09-03-2024 Platelet mean volume (Bld) [Entitic vol] 8.4 fL 6.2-12.0 [facility] Monocyte percentageOrdered B y: Manny Alarcon on 09-03-2024 Monocytes/100 WBC (Bld) 10.1 % High 0-10 [facility] Neutrophil percentageOrdered By: Manny Alarcon on 09-03-2024 Neutrophils/100 WBC (Bld) 68.5 % 47-70 [facility] Nucleated red blood cell per centageOrdered By: Manny Alarcon on 09-03-2024 Nucleated RBC/100 WBC (Bld) [Ratio] 0 % 0-5 [facility] Partial Thromboplast Timeon 09-03-2024 aPTT Coag (Bld) [Time] 24.4 s Normal 24.1-36.2 [facility] Comment on above: Performed By: #### L 300.4550, L300.3900, L100.0100 ####[facility] [address] [place], [address] Platelet countOrdered By: Fer Alarcon on 09-03-2024 Platelets (Bld) [#/Vol] 283 10*3/uL 150-450 [facility] Prothrombin Time w/INRon INR Coag (PPP) [Relative time] 0.9 {INR} Normal [facility] Comment on above: Performed By: #### L 300.4310, L300.3900, L100.0100 ####[facility] [address] [place], [address] PT Coag (PPP) [Time] 12.0 s Normal 11.7-14.9 [facility] Comment on above: Performed By: #### L 300.4310, L300.3900, L100.0100 ####[facility] [address] [place], [place], [phone] Prothrombin timeOrdered By: Manny Alarcon on 09-03-2024 PT Coag (PPP) [Time] 12.0 s 11.7-14.9 [facility] RBC Auto (Bld) [#/Vol]Ordere d By: Manny Alarcon on 09-03-2024 RBC (Bld) [#/Vol] 5.14 10*6/uL 4.2-5.4 [facility] White blood cell (WBC) count Ordered By: Manny Alarcon on 09-03-2024 WBC (Bld) [#/Vol] 10.3 10*3/uL 4.4-11.0 [facility] Oncology Visit Reporton 08-15 Oncology Visit Report Normal [facility] Pulmonary Visit Reporton Pulmonary Visit Report Normal [facility] CT Chest AND Abd W/ Contrast on 08-26-2024 CT Chest AND Abd W/ Contrast Normal [facility] 6 Minute Walk Teston 025 6 Minute Walk Test Normal [facility] Magnetic resonance imaging r eportOrdered By: Saman Santacruz on 06-25-2024 Study report [facility] Imaging Services [address] [place], [place] [id number] Brain W/WO Contrast MR#: [id number] Acct: [id number] Name: GABRIELLE RIOS Rep #: [id number] : [id number] F 68 From: Lita Santacruz MD PCP: Dr. Lynda Alonso MD Status: REG CL I Study:Brain W/WO Contrast Date of Exam: 06/21/24 Exam# [id number] Ordering Dr: Aly Gupta DO EXAM: MRI [...] 2. Additional description as above. Reading Location: [facility] CC: Dr. Lynda Alonso MD; Dr. 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 [facility] Radiation Oncology Visiton 0 06-24-2024 Radiation Oncology Visit Normal [facility] Brain W/WO Contraston 2024 Brain W/WO Contrast Normal [facility] Oncology Visit Reporton Oncology Visit Report Normal [facility] CT Chest AND Abd W/ Contrast on 06-18-2024 CT Chest AND Abd W/ Contrast Normal [facility] Albumin to globulin ratioOrd ered By: Lynda Alonso on 05-21-2024 Albumin/Globulin [Mass ratio] 0.9 {ratio} 0.9-2.4 [facility] Bilirubin, totalOrdered By: Lynda Alonso on 05-21-2024 Bilirubin [Mass/Vol] 0.90 mg/dL 0.20-1.00 [facility] Comment on above: For patients on eltr ombopag therapy, use of Dimension Ovando TBIL is not recommended. Blood urea nitrogen (BUN)/cr eatinine ratioOrdered By: Lynda Alonso on 05-21-2024 Urea nitrogen/Creatinine [Mass ratio] 20.6 mg/mg High 10-20 [facility] Carbon dioxide measurementOr dered By: Lynda Alonso on 05-21-2024 CO2 [Moles/Vol] 24.0 mmol/L 21.0-32.0 [facility] Chloride measurementOrdered By: Lynda Alonso on 05-21-2024 Chloride [Moles/Vol] 102 mmol/L 98-107 [facility] Comprehensive Metabolic Prof ilon 05-21-2024 Albumin [Mass/Vol] 3.8 g/dL Normal 3.2-5.0 [facility] Comment on above: Order Comment: DR. Clayton VARGASCMP AND GETS TSHOrder Date: 05/13/24Order Info: 0786-1 - CMP Performed By: #### L 500.4050 ####[facility] [address] [facility] [place], [address] Albumin/Globulin [Mass ratio] 0.9 {ratio} Normal 0.9-2.4 [facility] Comment on above: Order Comment: DR. Clayton SALDANA AND GETS TSHOrder Date: 05/13/24Order Info: 0786-1 - CMP Performed By: #### L 500.4050 ####[facility] [address] [place], [address] ALK P 83 U/L Normal 45-117 [facility] Comment on above: Order Comment: DR. Clayton SEGURAP AND GETS TSHOrder Date: 05/13/24Order Info: 0786-1 - CMP Performed By: #### L 500.4050 ####[facility] [address] [place], [address] ALT [Catalytic activity/Vol] 22 U/L Normal 13-56 [facility] Comment on above: Order Comment: DR. Clayton VARGASCMP AND GETS TSHOrder Date: 05/13/24Order Info: 0786-1 - CMP Performed By: #### L 500.4050 ####[facility] [address] [place], [address] AST [Catalytic activity/Vol] 15 U/L Normal 15-37 [facility] Comment on above: Order Comment: DR. Clayton VARGASCMP AND GETS TSHOrder Date: 05/13/24Order Info: 0786-1 - CMP Performed By: #### L 500.4050 ####[facility] [address] [place], [address] Bilirubin [Mass/Vol] 0.90 mg/dL Normal 0.20-1.00 [facility] Comment on above: Order Comment: DR. Clayton HOBBS GETSCMP AND GETS TSHOrder Date: 05/13/24Order Info: 0786-1 - CMP Result Comment: For patients on eltrombopag therapy, use of Dimension Ovando TBIL is not recommended. Performed By: #### L 500.4050 ####[facility] [address] [place], [address] BUN/CRE 20.6 RATIO High 10-20 [facility] Comment on above: Order Comment: DR. Clayton VARGASCMP AND GETS TSHOrder Date: 05/13/24Order Info: 07-1 - CMP Performed By: #### L 500.4050 ####[facility] [address] [place], [address] CA,Total 9.6 mg/dL Normal 8.5-10.1 [facility] Comment on above: Order Comment: DR. Clayton VARGASCMP AND GETS TSHOrder Date: 05/13/24Order Info: 785-04 - CMP Performed By: #### L 500.4050 ####[facility] [address] [place], [address] Chloride [Moles/Vol] 102 mmol/L Normal 98-107 [facility] Comment on above: Order Comment: DR. Clayton VARGASCMP AND GETS TSHOrder Date: 05/13/24Order Info: 785-04 - CMP Performed By: #### L 500.4050 ####[facility] [address] [place], [address] CO2 [Moles/Vol] 24.0 mmol/L Normal 21.0-32.0 [facility] Comment on above: Order Comment: DR. Clayton VARGASCMP AND GETS TSHOrder Date: 05/13/24Order Info: 785-04 - CMP Performed By: #### L 500.4050 ####[facility] [address] [place], [address] Creatinine [Mass/Vol] 0.92 mg/dL Normal 0.55-1.02 [facility] Comment on above: Order Comment: DR. Clayton VARGASCMP AND GETS TSHOrder Date: 05/13/24Order Info: 785-04 - CMP Result Comment: The validity of the calculated GFR GFRAA in patients over70 years has not been determined. Clinical correlation isessential. Performed By: #### L 500.4050 ####[facility] [address] [place], [address] EST GFR - AA 78 mL/min Normal >60 [facility] Comment on above: Order Comment: DR. Clayton VARGASCMFranklin AND GETS TSHOrder Date: 05/13/24Order Info: 785-04 - CMP Result Comment: Afri can Omani GFR Calc Performed By: #### L 500.4050 ####[facility] [address] [place], [address] GAP 8 Normal 5-15 [facility] Comment on above: Order Comment: DR. Clayton VARGASCMP AND GETS TSHOrder Date: 05/13/24Order Info: 785-04 - CMP Performed By: #### L 500.4050 ####[facility] [address] [place], [address] GFR/1.73 sq M.predicted among non-blacks MDRD (S/P/Bld) [Vol rate/Area] 65 mL/min/{1.73_m2} Normal >60 [facility] Comment on above: Order Comment: DR. Clayton VARGASCMP AND GETS TSHOrder Date: 05/13/24Order Info: 785-04 - CMP Result Comment: Non- GFR Calc Performed By: #### L 500.4050 ####[facility] [address] [place], [address] Globulin (S) [Mass/Vol] 4.1 g/dL Normal 2.2-4.2 [facility] Comment on above: Order Comment: DR. Clayton VARGASCMP AND GETS TSHOrder Date: 05/13/24Order Info: 785-04 - CMP Performed By: #### L 500.4050 ####[facility] [address] [place], [address] Glucose [Mass/Vol] 109 mg/dL High 74-106 [facility] Comment on above: Order Comment: DR. Clayton VARGASCMP AND GETS TSHOrder Date: 05/13/24Order Info: 785- - CMP Result Comment: Fast ing Glucose result from 100 to 125 mg/dLsuggests IMPAIRED HOMEOSTASIS per A.D.A. criteria. Performed By: #### L 500.4050 ####[facility] [address] [place], [address] Potassium [Moles/Vol] 4.6 mmol/L Normal 3.5-5.1 [facility] Comment on above: Order Comment: DR. Clayton VARGASCMP AND GETS TSHOrder Date: 05/13/24Order Info: 785- - CMP Performed By: #### L 500.4050 ####[facility] [address] [place], [address] Sodium [Moles/Vol] 134 mmol/L Low 136-145 [facility] Comment on above: Order Comment: DR. Clayton VARGASCMP AND GETS TSHOrder Date: 05/13/24Order Info: 785- - CMP Performed By: #### L 500.4050 ####[facility] [address] [place], [address] T PROT 7.9 g/dL Normal 6.4-8.2 [facility] Comment on above: Order Comment: DR. Clayton VARGASCMP AND GETS TSHOrder Date: 05/13/24Order Info: 785- - CMP Performed By: #### L 500.4050 ####[facility] [address] [place], [address] Urea nitrogen [Mass/Vol] 19 mg/dL High 7-18 [facility] Comment on above: Order Comment: DR. Clayton SALDANA AND GETS TSHOrder Date: 05/13/24Order Info: 785- - CMP Performed By: #### L 500.4050 ####[facility] [address] [place], [address] Estimated glomerular filtrat ion rate (GFR) AmericanOrdered By: Lynda Alonso on 05-21-2024 Estimated GFR (MDRD) Amer 78 mL/min >60 [facility] Comment on above: GFR Calc Glomerular filtration rate ( GFR) estimationOrdered By: Lynda Alonso on 05-21-2024 Estimated GFR (MDRD) Non-Af Amer 65 mL/min >60 [facility] Comment on above: Non- GFR Calc GFR/1.73 sq M.predicted among non-blacks MDRD (S/P/Bld) [Vol rate/Area] 65 mL/min/{1.73_m2} >60 [facility] Comment on above: Non- GFR Calc Glucose measurementOrdered B y: Lynda Alonso on 05-21-2024 Glucose [Mass/Vol] 109 mg/dL High 74-106 [facility] Comment on above: Fasting Glucose resu lt from 100 to 125 mg/dL suggests IMPAIRED HOMEOSTASIS per A.D.A. criteria. Laboratory - Chemistry and C hemistry - challengeOrdered By: Lynda Alonso on 05-21-2024 AST [Catalytic activity/Vol] 15 U/L 15-37 [facility] Orthopedic Visit Reporton Orthopedic Visit Report Normal [facility] Potassium measurementOrdered By: Lynda Alonso on 05-21-2024 Potassium [Moles/Vol] 4.6 mmol/L 3.5-5.1 [facility] Serum anion gap measurementO rdered By: Lynda Alonso on 05-21-2024 Anion gap [Moles/Vol] 8 mmol/L 5-15 [facility] Serum globulin measurementOr dered By: Lynda Alonso on 05-21-2024 Globulin (S) [Mass/Vol] 4.1 g/dL 2.2-4.2 [facility] Serum or plasma alanine lam otransferase (ALT) measurementOrdered By: Lynda Alonso on 05-21-2024 ALT [Catalytic activity/Vol] 22 U/L 13-56 [facility] Serum or plasma albumin nicole urement (mass/volume)Ordered By: Lynda Alonso on 05-21-2024 Albumin [Mass/Vol] 3.8 g/dL 3.2-5.0 [facility] Serum or plasma alkaline natanael sphatase measurementOrdered By: Lynda Alonso on 05-21-2024 ALP [Catalytic activity/Vol] 83 U/L 45-117 [facility] Serum or plasma calcium nicole urement (mass/volume)Ordered By: Lynda Alonso on 05-21-2024 Calcium [Mass/Vol] 9.6 mg/dL 8.5-10.1 [facility] Serum or plasma creatinine m easurement (mass/volume)Ordered By: Lynda Alonso on 05-21-2024 Creatinine [Mass/Vol] 0.92 mg/dL 0.55-1.02 [facility] Comment on above: The validity of the calculated GFR & GFRAA in patients over 70 years has not been determined. Clinical correlation is essential. Serum or plasma thyroid stim ulating hormone (TSH) measurement (units/volume)Ordered By: Lynda Alonso on 05-21-2024 TSH Qn 2.750 uIU/mL 0.358-3.740 [facility] Serum or plasma urea nitroge n measurement (mass/volume)Ordered By: Lynda Alonso on 05-21-2024 Urea nitrogen [Mass/Vol] 19 mg/dL High 7-18 [facility] Sodium levelOrdered By: Vivi Alonso on 05-21-2024 Sodium [Moles/Vol] 134 mmol/L Low 136-145 [facility] TSH QnOrdered By: Lynda Eaton e on 05-21-2024 Thyroid Stimulating Hormone (TSH) 2.750 uIU/mL 0.358-3.740 [facility] Thyroid Stim Hormone (TSH)on 05-21-2024 TSH 2.750 uIU/mL Normal 0.358-3.740 [facility] Comment on above: Order Comment: DR. Clayton HOBBS GETSCMP AND GETS TSHOrder Date: 05/13/24Order Info: [id number] - CMP Performed By: #### L 501.9520 ####[facility] [address] [place], [place], [id number] Total proteinOrdered By: Rhonda Alonso on 05-21-2024 Protein [Mass/Vol] 7.9 g/dL 6.4-8.2 [facility] Pelvis (Routine)on Pelvis (Routine) Normal [facility] Orthopedic Visit Reporton Orthopedic Visit Report Normal [facility] Spine Lumbar (Routine)on Spine Lumbar (Routine) Normal [facility] Absolute lymphocyte countOrd ered By: Cesar Barbour on 04-30-2024 Lymphocytes Auto (Unsp spec) [#/Vol] 1.38 10*3/uL 0.83-4.51 [facility] Absolute neutrophil countOrd ered By: Cesar Barbour on 04-30-2024 Neutrophils (Bld) [#/Vol] 9.6 10*3/uL High 2.0-7.7 [facility] Activated partial thrombopla stin time (aPTT) in platelet poor plasma by coagulation aOrdered By: Cesar Barbour on 04-30-2024 aPTT Coag (PPP) [Time] 24.1 s 24.1-36.2 [facility] Albumin to globulin ratioOrd ered By: Cesar Barbour on 04-30-2024 Albumin/Globulin [Mass ratio] 1.2 {ratio} 0.9-2.4 [facility] Automated lymphocyte count a s percentage of total leukocytesOrdered By: Cesar Barbour on 04-30-2024 Lymphocytes/100 WBC Auto (Unsp spec) 11.8 % Low 19-41 [facility] Basophil percentageOrdered B y: Cesar Barbour on 04-30-2024 Basophils/100 WBC (Bld) 0.4 % 0-1 [facility] Bilirubin Test strip Ql (U)O rdered By: Cesar Barobur on 04-30-2024 Bilirubin Ql (U) Negative Negative [facility] Bilirubin, totalOrdered By: Cesar Barbour on 04-30-2024 Bilirubin [Mass/Vol] 0.90 mg/dL 0.20-1.00 [facility] Comment on above: For patients on eltr ombopag therapy, use of Dimension Ovando TBIL is not recommended. Blood urea nitrogen (BUN)/cr eatinine ratioOrdered By: Cesar Barbour on 04-30-2024 Urea nitrogen/Creatinine [Mass ratio] 11.6 mg/mg 10-20 [facility] CBC W/Diff, Automatedon 04-17 Absolute Lymph 1.38 X10 3/uL Normal 0.83-4.51 [facility] Comment on above: Performed By: #### L 503.6005, L500.4050, L100.0100, L300.4310, L300.3900 ####[facility] [address] [place], [address] Absolute Neut 9.6 X10 3/uL High 2.0-7.7 [facility] Comment on above: Performed By: #### L 503.6005, L500.4050, L100.0100, L300.4310, L300.3900 ####[facility] [address] [place], [address] Basophils/100 WBC (Bld) 0.4 % Normal 0-1 [facility] Comment on above: Performed By: #### L 503.6005, L500.4050, L100.0100, L300.4310, L300.3900 ####[facility] [address] [place], [address] Eosinophils/100 WBC (Bld) 0.2 % Normal 0-5 [facility] Comment on above: Performed By: #### L 503.6005, L500.4050, L100.0100, L300.4310, L300.3900 ####[facility] [address] [place], [address] Erythrocyte distribution width (RBC) [Ratio] 13.8 % Normal 11.6-14.6 [facility] Comment on above: Performed By: #### L 503.6005, L500.4050, L100.0100, L300.4310, L300.3900 ####[facility] [address] [place], [address] Hematocrit (Bld) [Volume fraction] 44.6 % Normal 37-47 [facility] Comment on above: Performed By: #### L 503.6005, L500.4050, L100.0100, L300.4310, L300.3900 ####[facility] [address] [place], [address] Hemoglobin (Bld) [Mass/Vol] 14.7 g/dL Normal 12.0-15.0 [facility] Comment on above: Performed By: #### L 503.6005, L500.4050, L100.0100, L300.4310, L300.3900 ####[facility] [address] [place], [address] IG% 0.400 Normal 0.0-0.9 [facility] Comment on above: Result Comment: IG% - Immature Granulocytes (promyelocytes, myelocytes andmetamyelocytes) > 1% indicates that a LEFT SHIFT is Present. Performed By: #### L 503.6005, L500.4050, L100.0100, L300.4310, L300.3900 ####[facility] [address] [place], [address] Lymphocytes/100 WBC (Bld) 11.8 % Low 19-41 [facility] Comment on above: Performed By: #### L 503.6005, L500.4050, L100.0100, L300.4310, L300.3900 ####[facility] [address] [place], [address] MCH (RBC) [Entitic mass] 29.8 pg Normal 27.0-32.0 [facility] Comment on above: Performed By: #### L 503.6005, L500.4050, L100.0100, L300.4310, L300.3900 ####[facility] [address] [place], [address] MCHC (RBC) [Mass/Vol] 33.0 g/dL Normal 32-36 [facility] Comment on above: Performed By: #### L 503.6005, L500.4050, L100.0100, L300.4310, L300.3900 ####[facility] [address] [place], [address] MCV (RBC) [Entitic vol] 90.3 fL Normal 81-99 [facility] Comment on above: Performed By: #### L 503.6005, L500.4050, L100.0100, L300.4310, L300.3900 ####[facility] [address] [place], [address] Monocytes/100 WBC (Bld) 5.6 % Normal 0-10 [facility] Comment on above: Performed By: #### L 503.6005, L500.4050, L100.0100, L300.4310, L300.3900 ####[facility] [address] [place], [address] Neutrophils/100 WBC (Bld) 81.6 % High 47-70 [facility] Comment on above: Performed By: #### L 503.6005, L500.4050, L100.0100, L300.4310, L300.3900 ####[facility] [address] [place], [address] Nucleated RBC (Bld) [#/Vol] 0 10*3/uL Normal 0-5 [facility] Comment on above: Performed By: #### L 503.6005, L500.4050, L100.0100, L300.4310, L300.3900 ####[facility] [address] [place], [address] Platelet mean volume (Bld) [Entitic vol] 8.4 fL Normal 6.2-12.0 [facility] Comment on above: Performed By: #### L 503.6005, L500.4050, L100.0100, L300.4310, L300.3900 ####[facility] [address] [place], [address] Platelets (Bld) [#/Vol] 234 10*3/uL Normal 150-450 [facility] Comment on above: Performed By: #### L 503.6005, L500.4050, L100.0100, L300.4310, L300.3900 ####[facility] [address] [place], [address] RBC (Bld) [#/Vol] 4.94 10*6/uL Normal 4.2-5.4 [facility] Comment on above: Performed By: #### L 503.6005, L500.4050, L100.0100, L300.4310, L300.3900 ####[facility] [address] [place], [address] RDW SD 45.6 fl High 35.1-43.9 [facility] Comment on above: Performed By: #### L 503.6005, L500.4050, L100.0100, L300.4310, L300.3900 ####[facility] [address] [place], [address] WBC (Bld) [#/Vol] 11.7 10*3/uL High 4.4-11.0 [facility] Comment on above: Performed By: #### L 503.6005, L500.4050, L100.0100, L300.4310, L300.3900 ####[facility] [address] [place], [address] Carbon dioxide measurementOr dered By: Csear Barbour on 04-30-2024 CO2 [Moles/Vol] 27.0 mmol/L 21.0-32.0 [facility] Chloride measurementOrdered By: Cesar Barbour on 04-30-2024 Chloride [Moles/Vol] 106 mmol/L 98-107 [facility] Comprehensive Metabolic Prof ilon 04-30-2024 Albumin [Mass/Vol] 4.2 g/dL Normal 3.2-5.0 [facility] Comment on above: Performed By: #### L 503.6005, L500.4050, L100.0100, L300.4310, L300.3900 ####[facility] [address] [place], [address] Albumin/Globulin [Mass ratio] 1.2 {ratio} Normal 0.9-2.4 [facility] Comment on above: Performed By: #### L 503.6005, L500.4050, L100.0100, L300.4310, L300.3900 ####[facility] [address] [place], [address] ALK P 69 U/L Normal 45-117 [facility] Comment on above: Performed By: #### L 503.6005, L500.4050, L100.0100, L300.4310, L300.3900 ####[facility] [address] [place], [address] ALT [Catalytic activity/Vol] 22 U/L Normal 13-56 [facility] Comment on above: Performed By: #### L 503.6005, L500.4050, L100.0100, L300.4310, L300.3900 ####[facility] [address] [place], [address] AST [Catalytic activity/Vol] 19 U/L Normal 15-37 [facility] Comment on above: Performed By: #### L 503.6005, L500.4050, L100.0100, L300.4310, L300.3900 ####[facility] [address] [place], [address] Bilirubin [Mass/Vol] 0.90 mg/dL Normal 0.20-1.00 [facility] Comment on above: Result Comment: For patients on eltrombopag therapy, use of Dimension Ovando TBIL is not recommended. Performed By: #### L 503.6005, L500.4050, L100.0100, L300.4310, L300.3900 ####[facility] [address] [place], [address] BUN/CRE 11.6 RATIO Normal 10-20 [facility] Comment on above: Performed By: #### L 503.6005, L500.4050, L100.0100, L300.4310, L300.3900 ####[facility] [address] [place], [address] CA,Total 9.3 mg/dL Normal 8.5-10.1 [facility] Comment on above: Performed By: #### L 503.6005, L500.4050, L100.0100, L300.4310, L300.3900 ####[facility] [address] [place], [address] Chloride [Moles/Vol] 106 mmol/L Normal 98-107 [facility] Comment on above: Performed By: #### L 503.6005, L500.4050, L100.0100, L300.4310, L300.3900 ####[facility] [address] [place], [address] CO2 [Moles/Vol] 27.0 mmol/L Normal 21.0-32.0 [facility] Comment on above: Performed By: #### L 503.6005, L500.4050, L100.0100, L300.4310, L300.3900 ####[facility] [address] [place], [address] Creatinine [Mass/Vol] 1.21 mg/dL High 0.55-1.02 [facility] Comment on above: Result Comment: The validity of the calculated GFR GFRAA in patients over70 years has not been determined. Clinical correlation isessential. Performed By: #### L 503.6005, L500.4050, L100.0100, L300.4310, L300.3900 ####[facility] [address] [place], [address] ECRCL 39.87 ml/min Normal [facility] Comment on above: Performed By: #### L 503.6005, L500.4050, L100.0100, L300.4310, L300.3900 ####[facility] [address] [place], [address] EST GFR - AA 57 mL/min Low >60 [facility] Comment on above: Result Comment: Afri can Omani GFR Calc Performed By: #### L 503.6005, L500.4050, L100.0100, L300.4310, L300.3900 ####[facility] [address] [place], [address] GAP 5 Normal 5-15 [facility] Comment on above: Performed By: #### L 503.6005, L500.4050, L100.0100, L300.4310, L300.3900 ####[facility] [address] [place], [address] GFR/1.73 sq M.predicted among non-blacks MDRD (S/P/Bld) [Vol rate/Area] 47 mL/min/{1.73_m2} Low >60 [facility] Comment on above: Result Comment: Non- GFR Calc Performed By: #### L 503.6005, L500.4050, L100.0100, L300.4310, L300.3900 ####[facility] [address] [place], [address] Globulin (S) [Mass/Vol] 3.4 g/dL Normal 2.2-4.2 [facility] Comment on above: Performed By: #### L 503.6005, L500.4050, L100.0100, L300.4310, L300.3900 ####[facility] [address] [place], [address] Glucose [Mass/Vol] 111 mg/dL High 74-106 [facility] Comment on above: Result Comment: Fast ing Glucose result from 100 to 125 mg/dLsuggests IMPAIRED HOMEOSTASIS per A.D.A. criteria. Performed By: #### L 503.6005, L500.4050, L100.0100, L300.4310, L300.3900 ####[facility] [address] [place], [address] Potassium [Moles/Vol] 4.3 mmol/L Normal 3.5-5.1 [facility] Comment on above: Performed By: #### L 503.6005, L500.4050, L100.0100, L300.4310, L300.3900 ####[facility] [address] [place], [address] Sodium [Moles/Vol] 138 mmol/L Normal 136-145 [facility] Comment on above: Performed By: #### L 503.6005, L500.4050, L100.0100, L300.4310, L300.3900 ####[facility] [address] [place], [address] T PROT 7.6 g/dL Normal 6.4-8.2 [facility] Comment on above: Performed By: #### L 503.6005, L500.4050, L100.0100, L300.4310, L300.3900 ####[facility] [address] [place], [address] Urea nitrogen [Mass/Vol] 14 mg/dL Normal 7-18 [facility] Comment on above: Performed By: #### L 503.6005, L500.4050, L100.0100, L300.4310, L300.3900 ####[facility] [address] [place], [address] Emergency Department Summary on 04-30-2024 Emergency Department Summary Normal [facility] Eosinophil percentageOrdered By: Cesar Barbour on 04-30-2024 Eosinophils/100 WBC (Bld) 0.2 % 0-5 [facility] Epithelial cells.squamous LM Ql (Urine sed)Ordered By: Cesar Barbour on 04-30-2024 Epithelial cells.squamous LM.HPF (Urine sed) [#/Area] 0 /[HPF] 5-10 [facility] Erythrocyte distribution wid th ratioOrdered By: Cesar Barbour on 04-30-2024 Erythrocyte distribution width (RBC) [Ratio] 13.8 % 11.6-14.6 [facility] Erythrocyte distribution wid th standard deviationOrdered By: Cesar Barbour on 04-30-2024 Erythrocyte distribution width (RBC) [Entitic vol] 45.6 fL High 35.1-43.9 [facility] Erythrocyte distribution width (RBC) [Ratio] 45.6 fl High 35.1-43.9 [facility] Estimated glomerular filtrat ion rate (GFR) AmericanOrdered By: Cesar Barbour on 04-30-2024 Estimated GFR (MDRD) Amer 57 mL/min Low >60 [facility] Comment on above: GFR Calc Estimation of creatinine ximena aranceOrdered By: Cesar Barbour on 04-30-2024 Estimated Creatinine Clearance Calc 39.87 ml/min [facility] Glomerular filtration rate ( GFR) estimationOrdered By: Cesar Barbour on 04-30-2024 Estimated GFR (MDRD) Non-Af Amer 47 mL/min Low >60 [facility] Comment on above: Non- GFR Calc GFR/1.73 sq M.predicted among non-blacks MDRD (S/P/Bld) [Vol rate/Area] 47 mL/min/{1.73_m2} Low >60 [facility] Comment on above: Non- GFR Calc Glucose Ql (U)Ordered By: Harman Barbour on 04-30-2024 Urine Glucose (UA) Normal mg/dl Normal [facility] Glucose measurementOrdered B y: Cesar Barbour on 04-30-2024 Glucose [Mass/Vol] 111 mg/dL High 74-106 [facility] Comment on above: Fasting Glucose resu lt from 100 to 125 mg/dL suggests IMPAIRED HOMEOSTASIS per A.D.A. criteria. Hematocrit Auto (Bld) [Volum e fraction]Ordered By: Cesar Barbour on 04-30-2024 Hematocrit (Bld) [Volume fraction] 44.6 % 37-47 [facility] Hemoglobin measurementOrdere d By: Cesar Barbour on 04-30-2024 Hemoglobin (Bld) [Mass/Vol] 14.7 g/dL 12.0-15.0 [facility] Immature granulocytes/100 WB C Auto (Bld)Ordered By: Cesar Barbour on 04-30-2024 Immature granulocytes/100 WBC (Bld) 0.400 % 0.0-0.9 [facility] Comment on above: IG% - Immature Granu locytes (promyelocytes, myelocytes and metamyelocytes) > 1% indicates that a LEFT SHIFT is Present. International normalized rat io (INR) calculationOrdered By: Cesar Barbour on 04-30-2024 INR Coag (Bld) [Relative time] 1.0 {INR} [facility] Ketones Test strip Ql (U)Ord ered By: Cesar Barbour on 04-30-2024 Ketones Ql (U) Negative Negative [facility] Laboratory - Chemistry and C hemistry - challengeOrdered By: Cesar Barbour on 04-30-2024 AST [Catalytic activity/Vol] 19 U/L 15-37 [facility] Lactic Acidon 04-30-2024 Lactate [Moles/Vol] 1.3 mmol/L Normal 0.4-1.9 [facility] Comment on above: Order Comment: Y Performed By: #### L 503.6005, L500.4050, L100.0100, L300.4310, L300.3900 ####[facility] [address] [place], [place], [id number] Lactic acid measurementOrder ed By: Cesar Barbour on 04-30-2024 Lactate [Moles/Vol] 1.3 mmol/L 0.4-2.0 [facility] Lymphocytes Auto (Unsp spec) [#/Vol]Ordered By: Cesar Barbour on 04-30-2024 Lymphocytes (Bld) [#/Vol] 1.38 10*3/uL 0.83-4.51 [facility] Lymphocytes/100 WBC Auto (Un sp spec)Ordered By: Cesar Barbour on 04-30-2024 Lymphocytes/100 WBC (Bld) 11.8 % Low 19-41 [facility] MCV (mean corpuscular volume ) determinationOrdered By: Cesar Barbour on 04-30-2024 MCV (RBC) [Entitic vol] 90.3 fL 81-99 [facility] Mean corpuscular hemoglobin (MCH) determinationOrdered By: Cesar Barbour on 04-30-2024 MCH (RBC) [Entitic mass] 29.8 pg 27.0-32.0 [facility] Mean corpuscular hemoglobin concentration (MCHC) determinationOrdered By: Cesar Barbour on 04-30-2024 MCHC (RBC) [Mass/Vol] 33.0 g/dL 32-36 [facility] Mean platelet volume determi nationOrdered By: Cesar Barbour on 04-30-2024 Platelet mean volume (Bld) [Entitic vol] 8.4 fL 6.2-12.0 [facility] Microscopic analysis of urin e for red blood cells (RBC)Ordered By: Cesar Barbour on 04-30-2024 Microscopic analysis of urine for red blood cells (RBC) 0 SEEN /hpf 0-5 [facility] Urine RBC 0 SEEN /hpf 0-5 [facility] Monocyte percentageOrdered B y: Cesar Barbour on 04-30-2024 Monocytes/100 WBC (Bld) 5.6 % 0-10 [facility] Mucus LM Ql (Urine sed)Order ed By: Cesar Barbour on 04-30-2024 Mucus Ql (Urine sed) 0 SEEN /hpf [facility] Neutrophil percentageOrdered By: Cesar Barbour on 04-30-2024 Neutrophils/100 WBC (Bld) 81.6 % High 47-70 [facility] Nitrite Test strip Ql (U)Ord ered By: Cesar Barbour on 04-30-2024 Nitrite Ql (U) Negative Negative [facility] Nucleated red blood cell per centageOrdered By: Cesar Barbour on 04-30-2024 Nucleated RBC/100 WBC (Bld) [Ratio] 0 % 0-5 [facility] Partial Thromboplast Timeon 04-30-2024 aPTT Coag (Bld) [Time] 24.1 s Normal 24.1-36.2 [facility] Comment on above: Performed By: #### L 503.6005, L500.4050, L100.0100, L300.4310, L300.3900 ####[facility] [address] [place], [address] Platelet countOrdered By: Harman Barbour on 04-30-2024 Platelets (Bld) [#/Vol] 234 10*3/uL 150-450 [facility] Potassium measurementOrdered By: Cesar Barbour on 04-30-2024 Potassium [Moles/Vol] 4.3 mmol/L 3.5-5.1 [facility] Protein Test strip Ql (U)Ord ered By: Cesar Barbour on 04-30-2024 Protein Ql (U) Negative Negative [facility] Prothrombin Time w/INRon INR Coag (PPP) [Relative time] 1.0 {INR} Normal [facility] Comment on above: Performed By: #### L 503.6005, L500.4050, L100.0100, L300.4310, L300.3900 ####[facility] [address] [place], [address] PT Coag (PPP) [Time] 13.0 s Normal 11.7-14.9 [facility] Comment on above: Performed By: #### L 503.6005, L500.4050, L100.0100, L300.4310, L300.3900 ####[facility] [address] [place], [address] Prothrombin timeOrdered By: Cesar Barbour on 04-30-2024 PT Coag (PPP) [Time] 13.0 s 11.7-14.9 [facility] RBC Auto (Bld) [#/Vol]Ordere d By: Cesar Barbour on 04-30-2024 RBC (Bld) [#/Vol] 4.94 10*6/uL 4.2-5.4 [facility] Serum anion gap measurementO rdered By: Cesar Barbour on 04-30-2024 Anion gap [Moles/Vol] 5 mmol/L 5-15 [facility] Serum globulin measurementOr dered By: Cesar Barbour on 04-30-2024 Globulin (S) [Mass/Vol] 3.4 g/dL 2.2-4.2 [facility] Serum or plasma alanine lam otransferase (ALT) measurementOrdered By: Cesar Barbour on 04-30-2024 ALT [Catalytic activity/Vol] 22 U/L 13-56 [facility] Serum or plasma albumin nicole urement (mass/volume)Ordered By: Cesar Barbour on 04-30-2024 Albumin [Mass/Vol] 4.2 g/dL 3.2-5.0 [facility] Serum or plasma alkaline natanael sphatase measurementOrdered By: Cesar Barbour on 04-30-2024 ALP [Catalytic activity/Vol] 69 U/L 45-117 [facility] Serum or plasma calcium nicole urement (mass/volume)Ordered By: Cesar Barbour on 04-30-2024 Calcium [Mass/Vol] 9.3 mg/dL 8.5-10.1 [facility] Serum or plasma creatinine m easurement (mass/volume)Ordered By: Cesar Barbour on 04-30-2024 Creatinine [Mass/Vol] 1.21 mg/dL High 0.55-1.02 [facility] Comment on above: The validity of the calculated GFR & GFRAA in patients over 70 years has not been determined. Clinical correlation is essential. Serum or plasma urea nitroge n measurement (mass/volume)Ordered By: Cesar Barbour on 04-30-2024 Urea nitrogen [Mass/Vol] 14 mg/dL 7-18 [facility] Sodium levelOrdered By: Cesar Barbour on 04-30-2024 Sodium [Moles/Vol] 138 mmol/L 136-145 [facility] Squamous epithelial cells de tection in urine sediment by light microscopyOrdered By: Cesar Barbour on 04-30-2024 Epithelial cells.squamous LM Ql (Urine sed) 0-5 SEEN /hpf 5-10 [facility] Total proteinOrdered By: Rafaela Barbour on 04-30-2024 Protein [Mass/Vol] 7.6 g/dL 6.4-8.2 [facility] Urinalysis, Completeon 04-30 EPI,SQUAMOUS 0-5 SEEN Normal 5-10 [facility] Comment on above: Order Comment: SHELLEY CTOR TO SPECIFY Performed By: #### L 400.0001 ####[facility] [address] [place], [address] BACTERIA 0 SEEN Normal None Seen [facility] Comment on above: Order Comment: SHELLEY CTOR TO SPECIFY Performed By: #### L 400.0001 ####[facility] [address] [place], [address] Mucus Ql (Urine sed) 0 SEEN Normal [facility] Comment on above: Order Comment: SHELLEY CTOR TO SPECIFY Performed By: #### L 400.0001 ####[facility] [address] [place], [address] RBC 0 SEEN Normal 0-5 [facility] Comment on above: Order Comment: SHELLEY CTOR TO SPECIFY Performed By: #### L 400.0001 ####[facility] [address] [place], [address] WBC 0 SEEN Normal 0-5 [facility] Comment on above: Order Comment: SHELLEY CTOR TO SPECIFY Performed By: #### L 400.0001 ####[facility] [address] [place], [address] Urine blood detectionOrdered By: Cesar Barbour on 04-30-2024 Urine Occult Blood 10 /ul High Negative [facility] Urine clarityOrdered By: Rafaela Barbour on 04-30-2024 Clarity (U) Clear Clear [facility] Urine color determinationOrd ered By: Cesar Barbour on 04-30-2024 Color (U) Yellow Yellow [facility] Urine glucose detectionOrder ed By: Cesar Barbour on 04-30-2024 Glucose Ql (U) Normal mg/dl Normal [facility] Urine leukocyte esterase det ection by dipstickOrdered By: Cesar Barbour on 04-30-2024 Leukocyte esterase Test strip Ql (U) Negative Negative [facility] Urine pHOrdered By: Cesar loco on 04-30-2024 pH (U) 6.5 [pH] 5.0 - 8.0 [facility] Urine sediment bacteria coun t by microscopy (number/high power field)Ordered By: Cesar Barbour on 04-30-2024 Bacteria LM.HPF (Urine sed) [#/Area] 0 /[HPF] None Seen [facility] Urine specific gravity measu rementOrdered By: Cesar Barbour on 04-30-2024 Specific gravity (U) [Rel density] 1.010 1.002-1.030 [facility] Urine urobilinogen measureme ntOrdered By: Cesar Barbour on 04-30-2024 Urobilinogen Ql (U) Normal mg/dl Normal [facility] Urobilinogen Ql (U)Ordered B y: Cesar Barbour on 04-30-2024 Urine Urobilinogen Normal mg/dl Normal [facility] White blood cell (WBC) count Ordered By: Cesar Barbour on 04-30-2024 WBC (Bld) [#/Vol] 11.7 10*3/uL High 4.4-11.0 [facility] White blood cell countOrdere d By: Cesar Barbour on 04-30-2024 Urine WBC 0 SEEN /hpf 0-5 [facility] White blood cell count 0 SEEN /hpf 0-5 [facility] aPTT Coag (PPP) [Time]Ordere d By: Cesar Barbour on 04-30-2024 aPTT Coag (Bld) [Time] 24.1 s 24.1-36.2 [facility] Abdomen/Pelvis W IV Cont ONL Yon 04-29-2024 Abdomen/Pelvis W IV Cont ONLY Normal [facility] Absolute neutrophil countOrd ered By: Blas Chi on 04-29-2024 Neutrophils (Bld) [#/Vol] 9.1 10*3/uL High 2.0-7.7 [facility] Albumin to globulin ratioOrd ered By: Blas Chi on 04-29-2024 Albumin/Globulin [Mass ratio] 1.1 {ratio} 0.9-2.4 [facility] Basophil percentageOrdered B y: Blas Chi on 04-29-2024 Basophils/100 WBC (Bld) 0.3 % 0-1 [facility] Bilirubin Test strip Ql (U)O rdered By: Blas Ospinat on 04-29-2024 Bilirubin Ql (U) Negative Negative [facility] Bilirubin, totalOrdered By: Blasdez GradyDalton on 04-29-2024 Bilirubin [Mass/Vol] 1.20 mg/dL High 0.20-1.00 [facility] Comment on above: For patients on eltr ombopag therapy, use of Dimension Ovando TBIL is not recommended. Blood urea nitrogen (BUN)/cr eatinine ratioOrdered By: Blas OchoaDeepikaDalton on 04-29-2024 Urea nitrogen/Creatinine [Mass ratio] 8.8 mg/mg Low 10-20 [facility] CBC W/Diff, Automatedon 04-17 Absolute Lymph 1.84 X10 3/uL Normal 0.83-4.51 [facility] Comment on above: Performed By: #### L 501.2450, L500.4050, L100.0100 ####[facility] [address] [place], [address] Absolute Neut 9.1 X10 3/uL High 2.0-7.7 [facility] Comment on above: Performed By: #### L 501.2450, L500.4050, L100.0100 ####[facility] [address] [place], [address] Basophils/100 WBC (Bld) 0.3 % Normal 0-1 [facility] Comment on above: Performed By: #### L 501.2450, L500.4050, L100.0100 ####[facility] [address] [place], [address] Eosinophils/100 WBC (Bld) 0.1 % Normal 0-5 [facility] Comment on above: Performed By: #### L 501.2450, L500.4050, L100.0100 ####[facility] [address] [place], [address] Erythrocyte distribution width (RBC) [Ratio] 13.8 % Normal 11.6-14.6 [facility] Comment on above: Performed By: #### L 501.2450, L500.4050, L100.0100 ####[facility] [address] [place], [address] Hematocrit (Bld) [Volume fraction] 45.5 % Normal 37-47 [facility] Comment on above: Performed By: #### L 501.2450, L500.4050, L100.0100 ####[facility] [address] [place], [address] Hemoglobin (Bld) [Mass/Vol] 15.3 g/dL High 12.0-15.0 [facility] Comment on above: Performed By: #### L 501.2450, L500.4050, L100.0100 ####[facility] [address] [place], [address] IG% 0.500 Normal 0.0-0.9 [facility] Comment on above: Result Comment: IG% - Immature Granulocytes (promyelocytes, myelocytes andmetamyelocytes) > 1% indicates that a LEFT SHIFT is Present. Performed By: #### L 501.2450, L500.4050, L100.0100 ####[facility] [address] [place], [address] Lymphocytes/100 WBC (Bld) 15.5 % Low 19-41 [facility] Comment on above: Performed By: #### L 501.2450, L500.4050, L100.0100 ####[facility] [address] [place], [address] MCH (RBC) [Entitic mass] 30.2 pg Normal 27.0-32.0 [facility] Comment on above: Performed By: #### L 501.2450, L500.4050, L100.0100 ####[facility] [address] [place], [address] MCHC (RBC) [Mass/Vol] 33.6 g/dL Normal 32-36 [facility] Comment on above: Performed By: #### L 501.2450, L500.4050, L100.0100 ####[facility] [address] [place], [address] MCV (RBC) [Entitic vol] 89.7 fL Normal 81-99 [facility] Comment on above: Performed By: #### L 501.2450, L500.4050, L100.0100 ####[facility] [address] [place], [address] Monocytes/100 WBC (Bld) 6.5 % Normal 0-10 [facility] Comment on above: Performed By: #### L 501.2450, L500.4050, L100.0100 ####[facility] [address] [place], [address] Neutrophils/100 WBC (Bld) 77.1 % High 47-70 [facility] Comment on above: Performed By: #### L 501.2450, L500.4050, L100.0100 ####[facility] [address] [place], [address] Nucleated RBC (Bld) [#/Vol] 0 10*3/uL Normal 0-5 [facility] Comment on above: Performed By: #### L 501.2450, L500.4050, L100.0100 ####[facility] [address] [place], [address] Platelet mean volume (Bld) [Entitic vol] 8.5 fL Normal 6.2-12.0 [facility] Comment on above: Performed By: #### L 501.2450, L500.4050, L100.0100 ####[facility] [address] [place], [address] Platelets (Bld) [#/Vol] 272 10*3/uL Normal 150-450 [facility] Comment on above: Performed By: #### L 501.2450, L500.4050, L100.0100 ####[facility] [address] [place], [address] RBC (Bld) [#/Vol] 5.07 10*6/uL Normal 4.2-5.4 [facility] Comment on above: Performed By: #### L 501.2450, L500.4050, L100.0100 ####[facility] [address] [place], [address] RDW SD 44.9 fl High 35.1-43.9 [facility] Comment on above: Performed By: #### L 501.2450, L500.4050, L100.0100 ####[facility] [address] [place], [address] WBC (Bld) [#/Vol] 11.9 10*3/uL High 4.4-11.0 [facility] Comment on above: Performed By: #### L 501.2450, L500.4050, L100.0100 ####[facility] [address] [place], [address] Carbon dioxide measurementOr dered By: Blas Chi on 04-29-2024 CO2 [Moles/Vol] 24.0 mmol/L 21.0-32.0 [facility] Chloride measurementOrdered By: Blas Chi on 04-29-2024 Chloride [Moles/Vol] 102 mmol/L 98-107 [facility] Comprehensive Metabolic Prof ilon 04-29-2024 Albumin [Mass/Vol] 4.3 g/dL Normal 3.2-5.0 [facility] Comment on above: Performed By: #### L 501.2450, L500.4050, L100.0100 ####[facility] [address] [place], [address] Albumin/Globulin [Mass ratio] 1.1 {ratio} Normal 0.9-2.4 [facility] Comment on above: Performed By: #### L 501.2450, L500.4050, L100.0100 ####[facility] [address] [place], [address] ALK P 66 U/L Normal 45-117 [facility] Comment on above: Performed By: #### L 501.2450, L500.4050, L100.0100 ####[facility] [address] [place], [address] ALT [Catalytic activity/Vol] 21 U/L Normal 13-56 [facility] Comment on above: Performed By: #### L 501.2450, L500.4050, L100.0100 ####[facility] [address] [place], [address] AST [Catalytic activity/Vol] 25 U/L Normal 15-37 [facility] Comment on above: Performed By: #### L 501.2450, L500.4050, L100.0100 ####[facility] [address] [place], [address] Bilirubin [Mass/Vol] 1.20 mg/dL High 0.20-1.00 [facility] Comment on above: Result Comment: For patients on eltrombopag therapy, use of Dimension Ovando TBIL is not recommended. Performed By: #### L 501.2450, L500.4050, L100.0100 ####[facility] [address] [place], [address] BUN/CRE 8.8 RATIO Low 10-20 [facility] Comment on above: Performed By: #### L 501.2450, L500.4050, L100.0100 ####[facility] [address] [place], [address] CA,Total 9.4 mg/dL Normal 8.5-10.1 [facility] Comment on above: Performed By: #### L 501.2450, L500.4050, L100.0100 ####[facility] [address] [place], [address] Chloride [Moles/Vol] 102 mmol/L Normal 98-107 [facility] Comment on above: Performed By: #### L 501.2450, L500.4050, L100.0100 ####[facility] [address] [place], [address] CO2 [Moles/Vol] 24.0 mmol/L Normal 21.0-32.0 [facility] Comment on above: Performed By: #### L 501.2450, L500.4050, L100.0100 ####[facility] [address] [place], [address] Creatinine [Mass/Vol] 1.25 mg/dL High 0.55-1.02 [facility] Comment on above: Result Comment: The validity of the calculated GFR GFRAA in patients over70 years has not been determined. Clinical correlation isessential. Performed By: #### L 501.2450, L500.4050, L100.0100 ####[facility] [address] [place], [address] ECRCL 38.10 ml/min Normal [facility] Comment on above: Performed By: #### L 501.2450, L500.4050, L100.0100 ####[facility] [address] [place], [address] EST GFR - AA 55 mL/min Low >60 [facility] Comment on above: Result Comment: Afri can Omani GFR Calc Performed By: #### L 501.2450, L500.4050, L100.0100 ####[facility] [address] [place], [address] GAP 9 Normal 5-15 [facility] Comment on above: Performed By: #### L 501.2450, L500.4050, L100.0100 ####[facility] [address] [place], [address] GFR/1.73 sq M.predicted among non-blacks MDRD (S/P/Bld) [Vol rate/Area] 46 mL/min/{1.73_m2} Low >60 [facility] Comment on above: Result Comment: Non- GFR Calc Performed By: #### L 501.2450, L500.4050, L100.0100 ####[facility] [address] [place], [address] Globulin (S) [Mass/Vol] 3.9 g/dL Normal 2.2-4.2 [facility] Comment on above: Performed By: #### L 501.2450, L500.4050, L100.0100 ####[facility] [address] [place], [address] Glucose [Mass/Vol] 132 mg/dL High 74-106 [facility] Comment on above: Result Comment: Fast ing Glucose result greater than or equal to 126 mg/dLsuggests DIABETES MELLITUS per A.D.A. criteria. Performed By: #### L 501.2450, L500.4050, L100.0100 ####[facility] [address] [place], [address] Potassium [Moles/Vol] 3.9 mmol/L Normal 3.5-5.1 [facility] Comment on above: Performed By: #### L 501.2450, L500.4050, L100.0100 ####[facility] [address] [place], [address] Sodium [Moles/Vol] 135 mmol/L Low 136-145 [facility] Comment on above: Performed By: #### L 501.2450, L500.4050, L100.0100 ####[facility] [address] [place], [address] T PROT 8.2 g/dL Normal 6.4-8.2 [facility] Comment on above: Performed By: #### L 501.2450, L500.4050, L100.0100 ####[facility] [address] [place], [address] Urea nitrogen [Mass/Vol] 11 mg/dL Normal 7-18 [facility] Comment on above: Performed By: #### L 501.2450, L500.4050, L100.0100 ####[facility] [address] [place], [address] Emergency Department Summary on 04-29-2024 Emergency Department Summary Normal [facility] Eosinophil percentageOrdered By: Blas Chi on 04-29-2024 Eosinophils/100 WBC (Bld) 0.1 % 0-5 [facility] Epithelial cells.squamous LM Ql (Urine sed)Ordered By: Blas Chi on 04-29-2024 Epithelial cells.squamous LM.HPF (Urine sed) [#/Area] 0 /[HPF] 5-10 [facility] Erythrocyte distribution wid th ratioOrdered By: Blas Chi on 04-29-2024 Erythrocyte distribution width (RBC) [Ratio] 13.8 % 11.6-14.6 [facility] Erythrocyte distribution wid th standard deviationOrdered By: Blas Hoffman on 04-29-2024 Erythrocyte distribution width (RBC) [Entitic vol] 44.9 fL High 35.1-43.9 [facility] Estimated glomerular filtrat ion rate (GFR) AmericanOrdered By: Blas Chi on 04-29-2024 Estimated GFR (MDRD) Amer 55 mL/min Low >60 [facility] Comment on above: GFR Calc Estimation of creatinine ximena aranceOrdered By: Blas Chi on 04-29-2024 Estimated Creatinine Clearance Calc 38.10 ml/min [facility] Glomerular filtration rate ( GFR) estimationOrdered By: Blas Chi on 04-29-2024 Estimated GFR (MDRD) Non-Af Amer 46 mL/min Low >60 [facility] Comment on above: Non- GFR Calc Glucose Ql (U)Ordered By: Adrian Chi on 04-29-2024 Urine Glucose (UA) Normal mg/dl Normal [facility] Glucose measurementOrdered B y: Blas Chi on 04-29-2024 Glucose [Mass/Vol] 132 mg/dL High 74-106 [facility] Comment on above: Fasting Glucose resu lt greater than or equal to 126 mg/dL suggests DIABETES MELLITUS per A.D.A. criteria. Hematocrit Auto (Bld) [Volum e fraction]Ordered By: Blas Chi on 04-29-2024 Hematocrit (Bld) [Volume fraction] 45.5 % 37-47 [facility] Hemoglobin measurementOrdere d By: Blas Chi on 04-29-2024 Hemoglobin (Bld) [Mass/Vol] 15.3 g/dL High 12.0-15.0 [facility] Immature granulocytes/100 WB C Auto (Bld)Ordered By: Blas Chi on 04-29-2024 Immature granulocytes/100 WBC (Bld) 0.500 % 0.0-0.9 [facility] Comment on above: IG% - Immature Granu locytes (promyelocytes, myelocytes and metamyelocytes) > 1% indicates that a LEFT SHIFT is Present. Ketones Test strip Ql (U)Ord ered By: Blas Chi on 04-29-2024 Ketones Ql (U) Negative Negative [facility] Laboratory - Chemistry and C hemistry - challengeOrdered By: Blas Chi on 04-29-2024 AST [Catalytic activity/Vol] 25 U/L 15-37 [facility] Lipaseon 04-29-2024 Lipase [Catalytic activity/Vol] 38 U/L Normal 13-75 [facility] Comment on above: Result Comment: Dee ma note:LIPASE revised reference range effective 22.New Lipase methodology. Expected to produce lower valuesthan the previous assay method.NEW Reference Range: 13 - 75 U/L Performed By: #### L 501.2450, L500.4050, L100.0100 ####[facility] [address] [place], [address] Lipase measurementOrdered By : Blas Chi on 04-29-2024 Lipase [Catalytic activity/Vol] 38 U/L 13-75 [facility] Comment on above: Please note:LIPASE r evised reference range effective 22. New Lipase methodology. Expected to produce lower values than the previous assay method. NEW Reference Range: 13 - 75 U/L Lymphocytes Auto (Unsp spec) [#/Vol]Ordered By: Blas Chi on 04-29-2024 Lymphocytes (Bld) [#/Vol] 1.84 10*3/uL 0.83-4.51 [facility] Lymphocytes/100 WBC Auto (Un sp spec)Ordered By: Blas Chi on 04-29-2024 Lymphocytes/100 WBC (Bld) 15.5 % Low 19-41 [facility] MCV (mean corpuscular volume ) determinationOrdered By: Blas Chi on 04-29-2024 MCV (RBC) [Entitic vol] 89.7 fL 81-99 [facility] Mean corpuscular hemoglobin (MCH) determinationOrdered By: Blas Chi on 04-29-2024 MCH (RBC) [Entitic mass] 30.2 pg 27.0-32.0 [facility] Mean corpuscular hemoglobin concentration (MCHC) determinationOrdered By: Blas Chi on 04-29-2024 MCHC (RBC) [Mass/Vol] 33.6 g/dL 32-36 [facility] Mean platelet volume determi nationOrdered By: Blas Chi on 04-29-2024 Platelet mean volume (Bld) [Entitic vol] 8.5 fL 6.2-12.0 [facility] Microscopic analysis of urin e for red blood cells (RBC)Ordered By: Blas Chi on 04-29-2024 Urine RBC 0 SEEN /hpf 0-5 [facility] Monocyte percentageOrdered B y: Blas Chi on 04-29-2024 Monocytes/100 WBC (Bld) 6.5 % 0-10 [facility] Mucus LM Ql (Urine sed)Order ed By: Blas Chi on 04-29-2024 Mucus Ql (Urine sed) 0 SEEN /hpf [facility] Neutrophil percentageOrdered By: Blas Chi on 04-29-2024 Neutrophils/100 WBC (Bld) 77.1 % High 47-70 [facility] Nitrite Test strip Ql (U)Ord ered By: Blas Chi on 04-29-2024 Nitrite Ql (U) Negative Negative [facility] Nucleated red blood cell per centageOrdered By: Blas Chi on 04-29-2024 Nucleated RBC/100 WBC (Bld) [Ratio] 0 % 0-5 [facility] Platelet countOrdered By: Adrian webbl Alon on 04-29-2024 Platelets (Bld) [#/Vol] 272 10*3/uL 150-450 [facility] Potassium measurementOrdered By: Blas Chi on 04-29-2024 Potassium [Moles/Vol] 3.9 mmol/L 3.5-5.1 [facility] Protein Test strip Ql (U)Ord ered By: Blas Chi on 04-29-2024 Protein Ql (U) Negative Negative [facility] RBC Auto (Bld) [#/Vol]Ordere d By: Blas Chi on 04-29-2024 RBC (Bld) [#/Vol] 5.07 10*6/uL 4.2-5.4 [facility] Serum anion gap measurementO rdered By: Blas Chi on 04-29-2024 Anion gap [Moles/Vol] 9 mmol/L 5-15 [facility] Serum globulin measurementOr dered By: Blas Chi on 04-29-2024 Globulin (S) [Mass/Vol] 3.9 g/dL 2.2-4.2 [facility] Serum or plasma alanine lam otransferase (ALT) measurementOrdered By: Blas Chi on 04-29-2024 ALT [Catalytic activity/Vol] 21 U/L 13-56 [facility] Serum or plasma albumin nicole urement (mass/volume)Ordered By: Blas Hoffman on 04-29-2024 Albumin [Mass/Vol] 4.3 g/dL 3.2-5.0 [facility] Serum or plasma alkaline natanael sphatase measurementOrdered By: Blas Chi on 04-29-2024 ALP [Catalytic activity/Vol] 66 U/L 45-117 [facility] Serum or plasma calcium nicole urement (mass/volume)Ordered By: Blas Hoffman on 04-29-2024 Calcium [Mass/Vol] 9.4 mg/dL 8.5-10.1 [facility] Serum or plasma creatinine m easurement (mass/volume)Ordered By: Blas Hoffman on 04-29-2024 Creatinine [Mass/Vol] 1.25 mg/dL High 0.55-1.02 [facility] Comment on above: The validity of the calculated GFR & GFRAA in patients over 70 years has not been determined. Clinical correlation is essential. Serum or plasma urea nitroge n measurement (mass/volume)Ordered By: Blas Chi on 04-29-2024 Urea nitrogen [Mass/Vol] 11 mg/dL 7-18 [facility] Sodium levelOrdered By: Demarcus Chi on 04-29-2024 Sodium [Moles/Vol] 135 mmol/L Low 136-145 [facility] Total proteinOrdered By: Rohan Chi on 04-29-2024 Protein [Mass/Vol] 8.2 g/dL 6.4-8.2 [facility] Urinalysis, Completeon 04-29 EPI,SQUAMOUS 0-5 SEEN Normal 5-10 [facility] Comment on above: Order Comment: CLEAN CATCH Performed By: #### L 400.0001 ####[facility] [address] [facility] [address] BACTERIA 0 SEEN Normal None Seen [facility] Comment on above: Order Comment: CLEAN CATCH Performed By: #### L 400.0001 ####[facility] [address] [facility] [address] Mucus Ql (Urine sed) 0 SEEN Normal [facility] Comment on above: Order Comment: CLEAN CATCH Performed By: #### L 400.0001 ####[facility] [address] [place], [address] RBC 0 SEEN Normal 0-5 [facility] Comment on above: Order Comment: CLEAN CATCH Performed By: #### L 400.0001 ####[facility] [address] [facility] [address] WBC 0 SEEN Normal 0-5 [facility] Comment on above: Order Comment: CLEAN CATCH Performed By: #### L 400.0001 ####[facility] [address] [place], [address] Urine blood detectionOrdered By: Blas Chi on 04-29-2024 Urine Occult Blood 25 /ul High Negative [facility] Urine clarityOrdered By: Rohan Chi on 04-29-2024 Clarity (U) Clear Clear [facility] Urine color determinationOrd ered By: Blas Chi on 04-29-2024 Color (U) Straw Yellow [facility] Urine leukocyte esterase det ection by dipstickOrdered By: Blas Chi on 04-29-2024 Leukocyte esterase Test strip Ql (U) Negative Negative [facility] Urine pHOrdered By: Blas Mccabe on 04-29-2024 pH (U) 6.5 [pH] 5.0 - 8.0 [facility] Urine sediment bacteria coun t by microscopy (number/high power field)Ordered By: Blasdez Chi on 04-29-2024 Bacteria LM.HPF (Urine sed) [#/Area] 0 /[HPF] None Seen [facility] Urine specific gravity measu rementOrdered By: [facility] on 04-29-2024 Specific gravity (U) [Rel density] 1.005 1.002-1.030 [facility] Urobilinogen Ql (U)Ordered B y: Blas Chi on 04-29-2024 Urine Urobilinogen Normal mg/dl Normal [facility] White blood cell (WBC) count Ordered By: Blas Chi on 04-29-2024 WBC (Bld) [#/Vol] 11.9 10*3/uL High 4.4-11.0 [facility] White blood cell countOrdere d By: Blas Chi on 04-29-2024 Urine WBC 0 SEEN /hpf 0-5 [facility] Basic Metabolic Profile (BMP )on 04-25-2024 BUN/CRE 14.0 RATIO Normal 10-20 [facility] Comment on above: Order Comment: Order Date: 04/24/24Order Info: [id number] - BMPPATIENT DID NOT WANT THE LIPID AND TSH DONE. SHE WANTED TOTALK TO HEART DRMavis Performed By: #### L 500.2500, L100.0500 ####[facility] [address] [place], [place], [id number] CA,Total 9.2 mg/dL Normal 8.5-10.1 [facility] Comment on above: Order Comment: Order Date: 04/24/24Order Info: [id number] [facility] LIPID AND TSH DONE. SHE WANTED TOTALK TO HEART DR. Performed By: #### L 500.2500, L100.0500 ####[facility] [address] [place], [address] EST GFR - AA 61 mL/min Normal >60 [facility] Comment on above: Order Comment: Order Date: 04/24/24Order Info: [id number] - [facility] NOT WANT THE LIPID AND TSH DONE. SHE WANTED TOTALK TO HEART DR. Result Comment: Afri can Omani GFR Calc Performed By: #### L 500.2500, L100.0500 ####[facility] [address] [place], [address] GAP 4 Low 5-15 [facility] Comment on above: Order Comment: Order Date: 04/24/24Order Info: [id number] - [facility] DID NOT WANT THE LIPID AND TSH DONE. SHE WANTED TOTALK TO HEART DR. Performed By: #### L 500.2500, L100.0500 ####[facility] [address] [place], [address] GFR/1.73 sq M.predicted among non-blacks MDRD (S/P/Bld) [Vol rate/Area] 51 mL/min/{1.73_m2} Low >60 [facility] Comment on above: Order Comment: Order Date: 04/24/24Order Info: [id number] - [facility] NOT WANT THE LIPID AND TSH DONE. SHE WANTED TOTALK TO HEART DR. Result Comment: Non- GFR Calc Performed By: #### L 500.2500, L100.0500 ####[facility] [address] [place], [address] Blood urea nitrogen (BUN)/cr eatinine ratioOrdered By: Trish Wolff on 04-25-2024 Urea nitrogen/Creatinine [Mass ratio] 14.0 mg/mg 10- [facility] CBC-Complete Blood Cnt No Di ffon 04-25-2024 Erythrocyte distribution width (RBC) [Ratio] 13.8 % Normal 11.6-14.6 [facility] Comment on above: Order Comment: Order Date: 04/24/24Order Info: [id number] - CBC Performed By: #### L 500.2500, L100.0500 ####[facility] [address] [place], [address] Hematocrit (Bld) [Volume fraction] 44.9 % Normal 37-47 [facility] Comment on above: Order Comment: Order Date: 04/24/24Order Info: [id number] - CBC Performed By: #### L 500.2500, L100.0500 ####[facility] [address] [place], [address] Hemoglobin (Bld) [Mass/Vol] 14.6 g/dL Normal 12.0-15.0 [facility] Comment on above: Order Comment: Order Date: 04/24/24Order Info: [id number] - CBC Performed By: #### L 500.2500, L100.0500 ####[facility] [address] [place], [address] MCH (RBC) [Entitic mass] 29.9 pg Normal 27.0-32.0 [facility] Comment on above: Order Comment: Order Date: 04/24/24Order Info: [id number] - CBC Performed By: #### L 500.2500, L100.0500 ####[facility] [address] [place], [address] MCHC (RBC) [Mass/Vol] 32.5 g/dL Normal 32-36 [facility] Comment on above: Order Comment: Order Date: 04/24/24Order Info: [id number] - CBC Performed By: #### L 500.2500, L100.0500 ####[facility] [address] [place], [address] MCV (RBC) [Entitic vol] 91.8 fL Normal 81-99 [facility] Comment on above: Order Comment: Order Date: 04/24/24Order Info: [id number] - CBC Performed By: #### L 500.2500, L100.0500 ####[facility] [address] [place], [address] Platelet mean volume (Bld) [Entitic vol] 8.8 fL Normal 6.2-12.0 [facility] Comment on above: Order Comment: Order Date: 04/24/24Order Info: [id number] - CBC Performed By: #### L 500.2500, L100.0500 ####[facility] [address] [place], [address] Platelets (Bld) [#/Vol] 273 10*3/uL Normal 150-450 [facility] Comment on above: Order Comment: Order Date: 04/24/24Order Info: [id number] - CBC Performed By: #### L 500.2500, L100.0500 ####[facility] [address] [place], [address] RBC (Bld) [#/Vol] 4.89 10*6/uL Normal 4.2-5.4 [facility] Comment on above: Order Comment: Order Date: 04/24/24Order Info: [id number] - CBC Performed By: #### L 500.2500, L100.0500 ####[facility] [address] [place], [address] RDW SD 46.9 fl High 35.1-43.9 [facility] Comment on above: Order Comment: Order Date: 04/24/24Order Info: [id number] - CBC Performed By: #### L 500.2500, L100.0500 ####[facility] [address] [place], [address] WBC (Bld) [#/Vol] 9.3 10*3/uL Normal 4.4-11.0 [facility] Comment on above: Order Comment: Order Date: 04/24/24Order Info: [id number] - CBC Performed By: #### L 500.2500, L100.0500 ####[facility] [address] [place], [address] Carbon dioxide measurementOr dered By: Trish Wolff on 04-25-2024 CO2 [Moles/Vol] 26.0 mmol/L Normal 21.0-32.0 [facility] Comment on above: Order Comment: Order Date: 04/24/24Order Info: [id number] - BMPPATIENT DID NOT WANT THE LIPID AND TSH DONE. SHE WANTED TOTALK TO HEART DRMavis Performed By: #### L 500.2500, L100.0500 ####[facility] [address] [place], [address] Chloride measurementOrdered By: Trish Wolff on 04-25-2024 Chloride [Moles/Vol] 106 mmol/L Normal 98-107 [facility] Comment on above: Order Comment: Order Date: 04/24/24Order Info: [id number] - BMPPATIENT DID NOT WANT THE LIPID AND TSH DONE. SHE WANTED TOTALK TO HEART DRMavis Performed By: #### L 500.2500, L100.0500 ####[facility] [address] [place], [place], [address] Erythrocyte distribution wid th ratioOrdered By: Trish Wolff on 04-25-2024 Erythrocyte distribution width (RBC) [Ratio] 13.8 % 11.6-14.6 [facility] Erythrocyte distribution wid th standard deviationOrdered By: Trish Wolff on 04-25-2024 Erythrocyte distribution width (RBC) [Entitic vol] 46.9 fL High 35.1-43.9 [facility] Estimated glomerular filtrat ion rate (GFR) AmericanOrdered By: Trish Wolff on 04-25-2024 Estimated GFR (MDRD) Amer 61 mL/min >60 [facility] Comment on above: GFR Calc Glomerular filtration rate ( GFR) estimationOrdered By: Trish Wolff on 04-25-2024 Estimated GFR (MDRD) Non-Af Amer 51 mL/min Low >60 [facility] Comment on above: Non- GFR Calc Glucose measurementOrdered B y: Trish Wolff on 04-25-2024 Glucose [Mass/Vol] 114 mg/dL High 74-106 [facility] Comment on above: Fasting Glucose [...] criteria. Performed By: #### L 500.2500, L100.0500 ####[facility] [address] [place], [place], [id number] Hematocrit Auto (Bld) [Volum e fraction]Ordered By: Trish Wolff on 04-25-2024 Hematocrit (Bld) [Volume fraction] 44.9 % 37-47 [facility] Hemoglobin measurementOrdere d By: Trish Wolff on 04-25-2024 Hemoglobin (Bld) [Mass/Vol] 14.6 g/dL 12.0-15.0 [facility] MCV (mean corpuscular volume ) determinationOrdered By: Trish Wolff on 04-25-2024 MCV (RBC) [Entitic vol] 91.8 fL 81-99 [facility] Mean corpuscular hemoglobin (MCH) determinationOrdered By: Trish Wolff on 04-25-2024 MCH (RBC) [Entitic mass] 29.9 pg 27.0-32.0 [facility] Mean corpuscular hemoglobin concentration (MCHC) determinationOrdered By: Trish Wolff on 04-25-2024 MCHC (RBC) [Mass/Vol] 32.5 g/dL 32-36 [facility] Mean platelet volume determi nationOrdered By: Trish Wolff on 04-25-2024 Platelet mean volume (Bld) [Entitic vol] 8.8 fL 6.2-12.0 [facility] Platelet countOrdered By: Harman Wolff on 04-25-2024 Platelets (Bld) [#/Vol] 273 10*3/uL 150-450 [facility] Potassium measurementOrdered By: Trish Rosarioner on 04-25-2024 Potassium [Moles/Vol] 4.7 mmol/L Normal 3.5-5.1 [facility] Comment on above: Order Comment: Order Date: 04/24/24Order Info: [id number] - BMPPATIENT DID NOT WANT THE LIPID AND TSH DONE. SHE WANTED TOTALK TO HEART Performed By: #### L 500.2500, L100.0500 ####[facility] [address] [place], [place], [address] RBC Auto (Bld) [#/Vol]Ordere d By: Trish Rosarioner on 04-25-2024 RBC (Bld) [#/Vol] 4.89 10*6/uL 4.2-5.4 [facility] Serum anion gap measurementO rdered By: Trish Rosarioner on 04-25-2024 Anion gap [Moles/Vol] 4 mmol/L Low 5-15 [facility] Serum or plasma calcium nicole urement (mass/volume)Ordered By: Trish Mariella on 04-25-2024 Calcium [Mass/Vol] 9.2 mg/dL 8.5-10.1 [facility] Serum or plasma creatinine m easurement (mass/volume)Ordered By: Trish Mariella on 04-25-2024 Creatinine [Mass/Vol] 1.14 mg/dL High 0.55-1.02 [facility] Comment on above: The validity of the calculated GFR & GFRAA in patients over 70 years has not been determined. Clinical correlation is essential. Order Comment: Order Date: 04/24/24Order Info: [id number] - BMPPATIENT DID NOT WANT THE LIPID AND TSH DONE. SHE WANTED TOTALK TO HEART Result Comment: The validity of the calculated GFR GFRAA in patients over70 years has not been determined. Clinical correlation isessential. Performed By: #### L 500.2500, L100.0500 ####[facility] [address] [place], [address] Serum or plasma urea nitroge n measurement (mass/volume)Ordered By: Trish Wolff on 04-25-2024 Urea nitrogen [Mass/Vol] 16 mg/dL Normal 7-18 [facility] Comment on above: Order Comment: Order Date: 04/24/24Order Info: [id number] - [facility] LIPID AND TSH DONE. SHE WANTED TOTALK TO HEART DR. Performed By: #### L 500.2500, L100.0500 ####[facility] [address] [place], [address] Sodium levelOrdered By: Trish Wolff on 04-25-2024 Sodium [Moles/Vol] 136 mmol/L Normal 136-145 [facility] Comment on above: Order Comment: Order Date: 04/24/24Order Info: [id number] - [facility] DID NOT WANT THE LIPID AND TSH DONE. SHE WANTED TOTALK TO HEART DRMavis Performed By: #### L 500.2500, L100.0500 ####[facility] [address] [facility] [address] [place], [place], [address] White blood cell (WBC) count Ordered By: Trish Wolff on 04-25-2024 WBC (Bld) [#/Vol] 9.3 10*3/uL 4.4-11.0 [facility] Pelvis 1 or 2 Viewson 2024 Pelvis 1 or 2 Views Normal [facility] L/S Spine Bending Flex/[place] 04-18-2024 L/S Spine Bending Flex/Ext Normal [facility] Orthopedic Visit Reporton Orthopedic Visit Report Normal [facility] Miscellaneous Lab Procedureo n 04-05-2024 MISC LAB TEST Normal [facility] Comment on above: Order Comment: HAEMO PHILUS AB #[id number] SERUM RFHAEMOPHILUS AB #[id number] SERUM RF Result Comment: TEST RESULTS LIMITSHaemophilus influenzae B IgG 0.12 ug/mL NOTE: An anti-Hib level of 0.15 ug/mL is generallyaccepted as the minimum level for protection. Optimal protectionpost- vaccination requires a level greater than 1.00 ug/mL. TESTING PERFORMED AT [facility]. ORIGINAL REPORT ON FILE IN LAB CONTAINS ADDITIONAL TEST SITE INFORMATION. Performed By: #### L 801.1541 ####[facility] [address] [place], [address] Miscellaneous procedureOrder ed By: Lynda Alonso on 03-22-2024 Miscellaneous Test See comment [facility] Comment on above: TEST RESULTS LIMITSH aemophilus influenzae B IgG 0.12 ug/mL NOTE: An anti-Hib level of 0.15 ug/mL is generally accepted as the minimum level for protection. Optimal protection post- vaccination requires a level greater than 1.00 ug/mL. TESTING PERFORMED AT [facility]. ORIGINAL REPORT ON FILE IN LAB CONTAINS ADDITIONAL TEST SITE INFORMATION. Absolute lymphocyte countOrd ered By: Chadwick Munson on 03-11-2024 Lymphocytes Auto (Unsp spec) [#/Vol] 2.18 10*3/uL 0.83-4.51 [facility] Absolute neutrophil countOrd ered By: Chadwick Munson on 03-11-2024 Neutrophils (Bld) [#/Vol] 5.0 10*3/uL 2.0-7.7 [facility] Albumin to globulin ratioOrd ered By: Chadwick Jeimy on 03-11-2024 Albumin/Globulin [Mass ratio] 1.1 {ratio} 0.9-2.4 [facility] Automated lymphocyte count a s percentage of total leukocytesOrdered By: Michealace Munson on 03-11-2024 Lymphocytes/100 WBC Auto (Unsp spec) 27.0 % [facility] Basophil percentageOrdered B y: Chadwick Munson on 03-11-2024 Basophils/100 WBC (Bld) 0.7 % 0-1 [facility] Bilirubin, totalOrdered By: [facility] Munson on 03-11-2024 Bilirubin [Mass/Vol] 1.10 mg/dL High 0.20-1.00 [facility] Comment on above: For patients on eltr ombopag therapy, use of Dimension Ovando TBIL is not recommended. Blood urea nitrogen (BUN)/cr eatinine ratioOrdered By: Chadwick Munson on 03-11-2024 Urea nitrogen/Creatinine [Mass ratio] 16.1 mg/mg 10- [facility] CBC W/Diff, Automatedon 02-16 Absolute Lymph 2.18 X10 3/uL Normal 0.83-4.51 [facility] Comment on above: Performed By: #### L 100.0100, L501.5200, L500.4050, L501.2300 ####[facility] [address] [place], [address] Absolute Neut 5.0 X10 3/uL Normal 2.0-7.7 [facility] Comment on above: Performed By: #### L 100.0100, L501.5200, L500.4050, L501.2300 ####[facility] [address] [place], [address] Basophils/100 WBC (Bld) 0.7 % Normal 0-1 [facility] Comment on above: Performed By: #### L 100.0100, L501.5200, L500.4050, L501.2300 ####[facility] [address] [place], [address] Eosinophils/100 WBC (Bld) 0.9 % Normal 0-5 [facility] Comment on above: Performed By: #### L 100.0100, L501.5200, L500.4050, L501.2300 ####[facility] [address] [place], [address] Erythrocyte distribution width (RBC) [Ratio] 13.3 % Normal 11.6-14.6 [facility] Comment on above: Performed By: #### L 100.0100, L501.5200, L500.4050, L501.2300 ####[facility] [address] [place], [address] Hematocrit (Bld) [Volume fraction] 42.1 % Normal 37-47 [facility] Comment on above: Performed By: #### L 100.0100, L501.5200, L500.4050, L501.2300 ####[facility] [address] [place], [address] Hemoglobin (Bld) [Mass/Vol] 14.1 g/dL Normal 12.0-15.0 [facility] Comment on above: Performed By: #### L 100.0100, L501.5200, L500.4050, L501.2300 ####[facility] [address] [place], [address] IG% 0.200 Normal 0.0-0.9 [facility] Comment on above: Result Comment: IG% - Immature Granulocytes (promyelocytes, myelocytes andmetamyelocytes) > 1% indicates that a LEFT SHIFT is Present. Performed By: #### L 100.0100, L501.5200, L500.4050, L501.2300 ####[facility] [address] [place], [address] Lymphocytes/100 WBC (Bld) 27.0 % Normal 19-41 [facility] Comment on above: Performed By: #### L 100.0100, L501.5200, L500.4050, L501.2300 ####[facility] [address] [place], [address] MCH (RBC) [Entitic mass] 29.9 pg Normal 27.0-32.0 [facility] Comment on above: Performed By: #### L 100.0100, L501.5200, L500.4050, L501.2300 ####[facility] [address] [place], [address] MCHC (RBC) [Mass/Vol] 33.5 g/dL Normal 32-36 [facility] Comment on above: Performed By: #### L 100.0100, L501.5200, L500.4050, L501.2300 ####[facility] [address] [place], [address] MCV (RBC) [Entitic vol] 89.4 fL Normal 81-99 [facility] Comment on above: Performed By: #### L 100.0100, L501.5200, L500.4050, L501.2300 ####[facility] [address] [place], [address] Monocytes/100 WBC (Bld) 9.7 % Normal 0-10 [facility] Comment on above: Performed By: #### L 100.0100, L501.5200, L500.4050, L501.2300 ####[facility] [address] [place], [address] Neutrophils/100 WBC (Bld) 61.5 % Normal 47-70 [facility] Comment on above: Performed By: #### L 100.0100, L501.5200, L500.4050, L501.2300 ####[facility] [address] [place], [address] Nucleated RBC (Bld) [#/Vol] 0 10*3/uL Normal 0-5 [facility] Comment on above: Performed By: #### L 100.0100, L501.5200, L500.4050, L501.2300 ####[facility] [address] [place], [address] Platelet mean volume (Bld) [Entitic vol] 8.0 fL Normal 6.2-12.0 [facility] Comment on above: Performed By: #### L 100.0100, L501.5200, L500.4050, L501.2300 ####[facility] [address] [place], [address] Platelets (Bld) [#/Vol] 226 10*3/uL Normal 150-450 [facility] Comment on above: Performed By: #### L 100.0100, L501.5200, L500.4050, L501.2300 ####[facility] [address] [place], [address] RBC (Bld) [#/Vol] 4.71 10*6/uL Normal 4.2-5.4 [facility] Comment on above: Performed By: #### L 100.0100, L501.5200, L500.4050, L501.2300 ####[facility] [address] [place], [address] RDW SD 44.0 fl High 35.1-43.9 [facility] Comment on above: Performed By: #### L 100.0100, L501.5200, L500.4050, L501.2300 ####[facility] [address] [place], [address] WBC (Bld) [#/Vol] 8.1 10*3/uL Normal 4.4-11.0 [facility] Comment on above: Performed By: #### L 100.0100, L501.5200, L500.4050, L501.2300 ####[facility] [address] [place], [address] Carbon dioxide measurementOr dered By: Chadwick Munson on 03-11-2024 CO2 [Moles/Vol] 27.0 mmol/L 21.0-32.0 [facility] Chloride measurementOrdered By: Chadwick Munson on 03-11-2024 Chloride [Moles/Vol] 103 mmol/L 98-107 [facility] Comprehensive Metabolic Prof ilon 03-11-2024 Albumin [Mass/Vol] 4.0 g/dL Normal 3.2-5.0 [facility] Comment on above: Performed By: #### L 100.0100, L501.5200, L500.4050, L501.2300 ####[facility] [address] [place], [address] Albumin/Globulin [Mass ratio] 1.1 {ratio} Normal 0.9-2.4 [facility] Comment on above: Performed By: #### L 100.0100, L501.5200, L500.4050, L501.2300 ####[facility] [address] [place], [address] ALK P 68 U/L Normal 45-117 [facility] Comment on above: Performed By: #### L 100.0100, L501.5200, L500.4050, L501.2300 ####[facility] [address] [place], [address] ALT [Catalytic activity/Vol] 26 U/L Normal 13-56 [facility] Comment on above: Performed By: #### L 100.0100, L501.5200, L500.4050, L501.2300 ####[facility] [address] [place], [address] AST [Catalytic activity/Vol] 23 U/L Normal 15-37 [facility] Comment on above: Performed By: #### L 100.0100, L501.5200, L500.4050, L501.2300 ####[facility] [address] [place], [address] Bilirubin [Mass/Vol] 1.10 mg/dL High 0.20-1.00 [facility] Comment on above: Result Comment: For patients on eltrombopag therapy, use of Dimension Ovando TBIL is not recommended. Performed By: #### L 100.0100, L501.5200, L500.4050, L501.2300 ####[facility] [address] [place], [address] BUN/CRE 16.1 RATIO Normal 10-20 [facility] Comment on above: Performed By: #### L 100.0100, L501.5200, L500.4050, L501.2300 ####[facility] [address] [place], [address] CA,Total 9.2 mg/dL Normal 8.5-10.1 [facility] Comment on above: Performed By: #### L 100.0100, L501.5200, L500.4050, L501.2300 ####[facility] [address] [place], [address] Chloride [Moles/Vol] 103 mmol/L Normal 98-107 [facility] Comment on above: Performed By: #### L 100.0100, L501.5200, L500.4050, L501.2300 ####[facility] [address] [place], [address] CO2 [Moles/Vol] 27.0 mmol/L Normal 21.0-32.0 [facility] Comment on above: Performed By: #### L 100.0100, L501.5200, L500.4050, L501.2300 ####[facility] [address] [place], [address] Creatinine [Mass/Vol] 1.12 mg/dL High 0.55-1.02 [facility] Comment on above: Result Comment: The validity of the calculated GFR GFRAA in patients over70 years has not been determined. Clinical correlation isessential. Performed By: #### L 100.0100, L501.5200, L500.4050, L501.2300 ####[facility] [address] [place], [address] ECRCL 44.46 ml/min Normal [facility] Comment on above: Performed By: #### L 100.0100, L501.5200, L500.4050, L501.2300 ####[facility] [address] [place], [address] EST GFR - AA 63 mL/min Normal >60 [facility] Comment on above: Result Comment: Afri can Omani GFR Calc Performed By: #### L 100.0100, L501.5200, L500.4050, L501.2300 ####[facility] [address] [place], [address] GAP 6 Normal 5-15 [facility] Comment on above: Performed By: #### L 100.0100, L501.5200, L500.4050, L501.2300 ####[facility] [address] [place], [address] GFR/1.73 sq M.predicted among non-blacks MDRD (S/P/Bld) [Vol rate/Area] 52 mL/min/{1.73_m2} Low >60 [facility] Comment on above: Result Comment: Non- GFR Calc Performed By: #### L 100.0100, L501.5200, L500.4050, L501.2300 ####[facility] [address] [place], [address] Globulin (S) [Mass/Vol] 3.6 g/dL Normal 2.2-4.2 [facility] Comment on above: Performed By: #### L 100.0100, L501.5200, L500.4050, L501.2300 ####[facility] [address] [place], [address] Glucose [Mass/Vol] 101 mg/dL Normal 74-106 [facility] Comment on above: Result Comment: Fast ing Glucose result from 100 to 125 mg/dLsuggests IMPAIRED HOMEOSTASIS per A.D.A. criteria. Performed By: #### L 100.0100, L501.5200, L500.4050, L501.2300 ####[facility] [address] [place], [address] Potassium [Moles/Vol] 3.9 mmol/L Normal 3.5-5.1 [facility] Comment on above: Performed By: #### L 100.0100, L501.5200, L500.4050, L501.2300 ####[facility] [address] [place], [address] Sodium [Moles/Vol] 136 mmol/L Normal 136-145 [facility] Comment on above: Performed By: #### L 100.0100, L501.5200, L500.4050, L501.2300 ####[facility] [address] [place], [address] T PROT 7.6 g/dL Normal 6.4-8.2 [facility] Comment on above: Performed By: #### L 100.0100, L501.5200, L500.4050, L501.2300 ####[facility] [address] [place], [address] Urea nitrogen [Mass/Vol] 18 mg/dL Normal 7-18 [facility] Comment on above: Performed By: #### L 100.0100, L501.5200, L500.4050, L501.2300 ####[facility] [address] [place], [address] Eosinophil percentageOrdered By: Chadwick Munson on 03-11-2024 Eosinophils/100 WBC (Bld) 0.9 % 0-5 [facility] Erythrocyte distribution wid th ratioOrdered By: Chadwick Munson on 03-11-2024 Erythrocyte distribution width (RBC) [Ratio] 13.3 % 11.6-14.6 [facility] Erythrocyte distribution wid th standard deviationOrdered By: [facility]ace Munson on 03-11-2024 Erythrocyte distribution width (RBC) [Entitic vol] 44.0 fL High 35.1-43.9 [facility] Erythrocyte distribution width (RBC) [Ratio] 44.0 fl High 35.1-43.9 [facility] Estimated glomerular filtrat ion rate (GFR) AmericanOrdered By: Chadwick Munson on 03-11-2024 Estimated GFR (MDRD) Amer 63 mL/min >60 [facility] Comment on above: GFR Calc Estimation of creatinine ximena aranceOrdered By: Chadwick Munson on 03-11-2024 Estimated Creatinine Clearance Calc 44.46 ml/min [facility] Glomerular filtration rate ( GFR) estimationOrdered By: Chadwick Munson on 03-11-2024 Estimated GFR (MDRD) Non-Af Amer 52 mL/min Low >60 [facility] Comment on above: Non- GFR Calc GFR/1.73 sq M.predicted among non-blacks MDRD (S/P/Bld) [Vol rate/Area] 52 mL/min/{1.73_m2} Low >60 [facility] Comment on above: Non- GFR Calc Glucose measurementOrdered B y: Chadwick Munson on 03-11-2024 Glucose [Mass/Vol] 101 mg/dL 74-106 [facility] Comment on above: Fasting Glucose resu lt from 100 to 125 mg/dL suggests IMPAIRED HOMEOSTASIS per A.D.A. criteria. Hematocrit Auto (Bld) [Volum e fraction]Or[facility] By: [facility] on 03-11-2024 Hematocrit (Bld) [Volume fraction] 42.1 % 37-47 [facility] Hemoglobin measurementOrdere d By: [facility] on 03-11-2024 Hemoglobin (Bld) [Mass/Vol] 14.1 g/dL 12.0-15.0 [facility] Immature granulocytes/100 WB C Auto (Bld)Ordered By: [facility] on 03-11-2024 Immature granulocytes/100 WBC (Bld) 0.200 % 0.0-0.9 [facility] Comment on above: IG% - Immature Granu locytes (promyelocytes, myelocytes and metamyelocytes) > 1% indicates that a LEFT SHIFT is Present. Laboratory - Chemistry and C hemistry - challengeOrdered By: [facility]24 AST [Catalytic activity/Vol] 23 U/L 15-37 [facility] Lymphocytes Auto (Unsp spec) [#/Vol]Ordered By: [facility] on 03-11-2024 Lymphocytes (Bld) [#/Vol] 2.18 10*3/uL 0.83-4.51 [facility] Lymphocytes/100 WBC Auto (Un sp spec)Ordered By: [facility] Jeimy on 03-11-2024 Lymphocytes/100 WBC (Bld) 27.0 % 19-41 [facility] MCV (mean corpuscular volume ) determinationOrdered By: [facility] on 03-11-2024 MCV (RBC) [Entitic vol] 89.4 fL 81-99 [facility] Magnesiumon 03-11-2024 Magnesium [Mass/Vol] 2.3 mg/dL Normal 1.6-2.6 [facility] Comment on above: Performed By: #### L 100.0100, L501.5200, L500.4050, L501.2300 ####[facility] [id number] [place], [address] Magnesium measurementOrdered By: [facility] on 03-11-2024 Magnesium [Mass/Vol] 2.3 mg/dL 1.6-2.6 [facility] Mean corpuscular hemoglobin (MCH) determinationOrdered By: Chadwick Munson on 03-11-2024 MCH (RBC) [Entitic mass] 29.9 pg 27.0-32.0 [facility] Mean corpuscular hemoglobin concentration (MCHC) determinationOrdered By: Chadwick Munson on 03-11-2024 MCHC (RBC) [Mass/Vol] 33.5 g/dL 32-36 [facility] Mean platelet volume determi nationOrdered By: Chadwick Munson on 03-11-2024 Platelet mean volume (Bld) [Entitic vol] 8.0 fL 6.2-12.0 [facility] Monocyte percentageOrdered B y: Chadwick Munson on 03-11-2024 Monocytes/100 WBC (Bld) 9.7 % 0-10 [facility] Neutrophil percentageOrdered By: Chadwick Munson on 03-11-2024 Neutrophils/100 WBC (Bld) 61.5 % 47-70 [facility] Nucleated red blood cell per centageOrdered By: Chadwick Munson on 03-11-2024 Nucleated RBC/100 WBC (Bld) [Ratio] 0 % 0-5 [facility] Oncology Visit Reporton 02-16 Oncology Visit Report Normal [facility] Phosphoruson 03-11-2024 Phosphate [Mass/Vol] 3.3 mg/dL Normal 2.5-4.9 [facility] Comment on above: Performed By: #### L 100.0100, L501.5200, L500.4050, L501.2300 ####[facility] [id number] [place], [address] Phosphorus measurementOrdere d By: Chadwick Munson on 03-11-2024 Phosphorus Level 3.3 mg/dL 2.5-4.9 [facility] Platelet countOrdered By: Kallie Munson on 03-11-2024 Platelets (Bld) [#/Vol] 226 10*3/uL 150-450 [facility] Potassium measurementOrdered By: Chadwick Munson on 03-11-2024 Potassium [Moles/Vol] 3.9 mmol/L 3.5-5.1 [facility] RBC Auto (Bld) [#/Vol]Ordere d By: Chadwick Munson on 03-11-2024 RBC (Bld) [#/Vol] 4.71 10*6/uL 4.2-5.4 [facility] Serum anion gap measurementO rdered By: Chadwick Munson on 03-11-2024 Anion gap [Moles/Vol] 6 mmol/L 5-15 [facility] Serum globulin measurementOr dered By: Chadwick Munson on 03-11-2024 Globulin (S) [Mass/Vol] 3.6 g/dL 2.2-4.2 [facility] Serum or plasma alanine lam otransferase (ALT) measurementOrdered By: Chadwick Munson on 03-11-2024 ALT [Catalytic activity/Vol] 26 U/L 13-56 [facility] Serum or plasma albumin nicole urement (mass/volume)Ordered By: Chadwick Munson on 03-11-2024 Albumin [Mass/Vol] 4.0 g/dL 3.2-5.0 [facility] Serum or plasma alkaline natanael sphatase measurementOrdered By: Chadwick Munson on 03-11-2024 ALP [Catalytic activity/Vol] 68 U/L 45-117 [facility] Serum or plasma calcium nicole urement (mass/volume)Ordered By: Chadwick Munson on 03-11-2024 Calcium [Mass/Vol] 9.2 mg/dL 8.5-10.1 [facility] Serum or plasma creatinine m easurement (mass/volume)Ordered By: Chadwick Munson on 03-11-2024 Creatinine [Mass/Vol] 1.12 mg/dL High 0.55-1.02 [facility] Comment on above: The validity of the calculated GFR & GFRAA in patients over 70 years has not been determined. Clinical correlation is essential. Serum or plasma urea nitroge n measurement (mass/volume)Ordered By: Chadwick Munson on 03-11-2024 Urea nitrogen [Mass/Vol] 18 mg/dL 7-18 [facility] Sodium levelOrdered By: Micheal Munson on 03-11-2024 Sodium [Moles/Vol] 136 mmol/L 136-145 [facility] Total proteinOrdered By: Luis Munson on 03-11-2024 Protein [Mass/Vol] 7.6 g/dL 6.4-8.2 [facility] White blood cell (WBC) count Ordered By: Chadwick Munson on 03-11-2024 WBC (Bld) [#/Vol] 8.1 10*3/uL 4.4-11.0 [facility] Bone Scan Whole Bodyon 03-07 Bone Scan Whole Body Normal [facility] CREATININE FINGERSTICKon Creatinine [Mass/Vol] 1.1 mg/dL High 0.55-1.02 [facility] Comment on above: Performed By: #### L 9100.0200 ####[facility] [id number] [facility] [address] [place], [place], [id number] GFR/1.73 sq M.predicted among non-blacks MDRD (S/P/Bld) [Vol rate/Area] 55.0000 mL/min/{1.73_m2} Low >60 [facility] Comment on above: Performed By: #### L 9100.0200 ####[facility] [id number] [facility] [address] [place], [place], [id number] CT Chest AND Abd W/ Contrast on 03-04-2024 CT Chest AND Abd W/ Contrast Normal [facility] Coronary Angiography CTon Coronary Angiography CT Normal [facility] Creatinine measurement at be dsideOrdered By: Gabriele Guerrero on 03-04-2024 Creatinine [Mass/Vol] 1.1 mg/dL High 0.55-1.02 [facility] EGFROrdered By: Gabriele Guerrero on 03-04-2024 GFR/1.73 sq M.predicted among non-blacks MDRD (S/P/Bld) [Vol rate/Area] 55.0000 mL/min/{1.73_m2} Low >60 [facility] Limited Chest CT Cardiac Onl yon 03-04-[address] Cardiac Only Normal [facility] Re-Evaluation - PT (1)on Re-Evaluation - PT (1) Normal [facility] Basophil percentageOrdered B y: Shavonne Blanchard on 2023 Creatinine [Mass/Vol] 1.1 mg/dL 0.55-1.02 [facility] Laboratory - Chemistry and C hemistry - challengeOrdered By: Shavonne Blanchard on 2023 GFR/1.73 sq M.predicted among non-blacks MDRD (S/P/Bld) [Vol rate/Area] 52.0000 mL/min/{1.73_m2} >60 [facility] Basophil percentageOrdered B y: Marce Jack on 07-04-2023 Bilirubin [Mass/Vol] 0.80 mg/dL 0.20-1.00 [facility] Comment on above: For patients on eltr ombopag therapy, use of Dimension Ovando TBIL is not recommended. Chloride [Moles/Vol] 106 mmol/L 98-107 [facility] Glucose [Mass/Vol] 104 mg/dL 74-106 [facility] Comment on above: Fasting Glucose resu lt from 100 to 125 mg/dL suggests IMPAIRED HOMEOSTASIS per A.D.A. criteria. Hemoglobin (Bld) [Mass/Vol] 13.4 g/dL 12.0-15.0 [facility] Potassium [Moles/Vol] 4.6 mmol/L 3.5-5.1 [facility] Protein [Mass/Vol] 7.7 g/dL 6.4-8.2 [facility] Sodium [Moles/Vol] 139 mmol/L 136-145 [facility] WBC (Bld) [#/Vol] 9.7 10*3/uL 4.4-11.0 [facility] Determination of erythrocyte mean corpuscular volume (MCV)Ordered By: Marce Jack on 07-04-2023 MCV (RBC) [Entitic vol] 90.9 fL 81-99 [facility] Erythrocyte distribution wid th ratioOrdered By: Marce Jack on 07-04-2023 Erythrocyte distribution width (RBC) [Ratio] 14.0 % 11.6-14.6 [facility] Erythrocyte distribution wid th standard deviationOrdered By: Marce Jack on 07-04-2023 Erythrocyte distribution width (RBC) [Entitic vol] 47.0 fL 35.1-43.9 [facility] Hematocrit Auto (Bld) [Volum e fraction]Ordered By: Marce Jack on 07-04-2023 Hematocrit (Bld) [Volume fraction] 42.1 % 37-47 [facility] Laboratory - Chemistry and C hemistry - challengeOrdered By: Marce Jack on 07-04-2023 Albumin/Globulin [Mass ratio] 1.1 {ratio} 0.9-2.4 [facility] ALP [Catalytic activity/Vol] 66 U/L 45-117 [facility] ALT [Catalytic activity/Vol] 24 U/L 13-56 [facility] CO2 [Moles/Vol] 24.0 mmol/L 21.0-32.0 [facility] Globulin (S) [Mass/Vol] 3.7 g/dL 2.2-4.2 [facility] Urea nitrogen/Creatinine [Mass ratio] 19.0 mg/mg 10-20 [facility] Laboratory - Hematology and Cell countsOrdered By: Marce Jcak on 07-04-2023 MCH (RBC) [Entitic mass] 28.9 pg 27.0-32.0 [facility] MCHC (RBC) [Mass/Vol] 31.8 g/dL 32-36 [facility] Platelet mean volume (Bld) [Entitic vol] 8.9 fL 6.2-12.0 [facility] Platelets (Bld) [#/Vol] 311 10*3/uL 150-450 [facility] No Panel InformationOrdered By: Marce Jack on 07-04-2023 Estimated GFR (MDRD) Amer 68 mL/min >60 [facility] Comment on above: GFR Calc Estimated GFR (MDRD) Non-Af Amer 56 mL/min >60 [facility] Comment on above: Non- GFR Calc RBC Auto (Bld) [#/Vol]Ordere d By: Marce Jack on 07-04-2023 RBC (Bld) [#/Vol] 4.63 10*6/uL 4.2-5.4 [facility] Serum or plasma calcium nicole urement (mass/volume)Ordered By: Marce Jack on 07-04-2023 Calcium [Mass/Vol] 9.4 mg/dL 8.5-10.1 [facility] Serum or plasma creatinine m easurement (mass/volume)Ordered By: Marce Jack on 07-04-2023 Creatinine [Mass/Vol] 1.05 mg/dL 0.55-1.02 [facility] Comment on above: The validity of the calculated GFR & GFRAA in patients over 70 years has not been determined. Clinical correlation is essential. Serum or plasma thyroid stim ulating hormone (TSH) measurement (units/volume)Ordered By: Marce Jack on 07-04-2023 TSH Qn 1.93 uIU/mL 0.358-3.74 [facility] Serum or plasma urea nitroge n measurement (mass/volume)Ordered By: Marce Jack on 07-04-2023 Urea nitrogen [Mass/Vol] 20 mg/dL 7-18 [facility] Thin prep Papanicolaou smear with manual screeningOrdered By: Marce Jack on 07-04-2023 Thin prep Papanicolaou smear with manual screening 4.0 g/dL 3.2-5.0 [facility] Thin prep Papanicolaou smear with manual screening 27 U/L 15-37 [facility] Thin prep Papanicolaou smear with manual screening 9 5-15 [facility] Whole blood hemoglobin A1c/t otal hemoglobin ratio (mass fraction)Ordered By: Marce Jack on 07-04-2023 HbA1c (Bld) [Mass fraction] 6.2 % 3.8-5.6 [facility] Comment on above: Normal < 5.7 % Predi abetic 5.7 - 6.4 % Diabetic >or= 6.5 % Please note range changes. Absolute lymphocyte countOrd ered By: Chadwick Munson on 05-11-2023 Lymphocytes Auto (Unsp spec) [#/Vol] 1.84 10*3/uL 0.83-4.51 [facility] Automated lymphocyte count a s percentage of total leukocytesOrdered By: Chadwick Munson on 05-11-2023 Lymphocytes/100 WBC Auto (Unsp spec) 22.0 % - [facility] Basophil percentageOrdered B y: Chadwick Munson on 05-11-2023 Basophils/100 WBC (Bld) 0.7 % 0-1 [facility] Bilirubin [Mass/Vol] 0.80 mg/dL 0.20-1.00 [facility] Comment on above: For patients on eltr ombopag therapy, use of Dimension Ovando TBIL is not recommended. Chloride [Moles/Vol] 105 mmol/L 98-107 [facility] Eosinophils/100 WBC (Bld) 2.0 % 0-5 [facility] Glucose [Mass/Vol] 124 mg/dL 74-106 [facility] Comment on above: Fasting Glucose resu lt from 100 to 125 mg/dL suggests IMPAIRED HOMEOSTASIS per A.D.A. criteria. Hemoglobin (Bld) [Mass/Vol] 13.2 g/dL 12.0-15.0 [facility] Monocytes/100 WBC (Bld) 9.3 % 0-10 [facility] Neutrophils (Bld) [#/Vol] 5.5 10*3/uL 2.0-7.7 [facility] Neutrophils/100 WBC (Bld) 65.6 % 47-70 [facility] Potassium [Moles/Vol] 4.2 mmol/L 3.5-5.1 [facility] Protein [Mass/Vol] 8.0 g/dL 6.4-8.2 [facility] Sodium [Moles/Vol] 134 mmol/L 136-145 [facility] WBC (Bld) [#/Vol] 8.4 10*3/uL 4.4-11.0 [facility] Determination of erythrocyte mean corpuscular volume (MCV)Ordered By: Chadwick Munson on 05-11-2023 MCV (RBC) [Entitic vol] 91.5 fL 81-99 [facility] Erythrocyte distribution wid th ratioOrdered By: [facility] on 05-11-2023 Erythrocyte distribution width (RBC) [Ratio] 13.9 % 11.6-14.6 [facility] Erythrocyte distribution wid th standard deviationOrdered By: Chadwick Munson on 05-11-2023 Erythrocyte distribution width (RBC) [Entitic vol] 46.5 fL 35.1-43.9 [facility] Hematocrit Auto (Bld) [Volum e fraction]Ordered By: Chadwick Munson on 05-11-2023 Hematocrit (Bld) [Volume fraction] 41.9 % 37-47 [facility] Immature granulocytes/100 WB C Auto (Bld)Ordered By: Chadwick Munson on 05-11-2023 Immature granulocytes/100 WBC (Bld) 0.400 % 0.0-0.9 [facility] Comment on above: IG% - Immature Granu locytes (promyelocytes, myelocytes and metamyelocytes) > 1% indicates that a LEFT SHIFT is Present. Laboratory - Chemistry and C hemistry - challengeOrdered By: Chadwick Munson on 05-11-2023 Albumin/Globulin [Mass ratio] 1.0 {ratio} 0.9-2.4 [facility] ALP [Catalytic activity/Vol] 81 U/L 45-117 [facility] ALT [Catalytic activity/Vol] 22 U/L 13-56 [facility] CO2 [Moles/Vol] 26.0 mmol/L 21.0-32.0 [facility] Globulin (S) [Mass/Vol] 4.1 g/dL 2.2-4.2 [facility] Urea nitrogen/Creatinine [Mass ratio] 12.2 mg/mg 10-20 [facility] Laboratory - Hematology and Cell countsOrdered By: Chadwick Munson on 05-11-2023 MCH (RBC) [Entitic mass] 28.8 pg 27.0-32.0 [facility] MCHC (RBC) [Mass/Vol] 31.5 g/dL 32-36 [facility] Nucleated RBC/100 WBC (Bld) [Ratio] 0 % 0-5 [facility] Platelets (Bld) [#/Vol] 256 10*3/uL 150-450 [facility] No Panel InformationOrdered By: Chadwick Munson on 05-11-2023 Estimated Creatinine Clearance Calc 45.66 ml/min [facility] Estimated GFR (MDRD) Amer 61 mL/min >60 [facility] Comment on above: GFR Calc Estimated GFR (MDRD) Non-Af Amer 50 mL/min >60 [facility] Comment on above: Non- GFR Calc Platelet mean volume Shan-Ec ker (Bld) [Entitic vol]Ordered By: Chadwick Munson on 05-11-2023 Platelet mean volume (Bld) [Entitic vol] 8.0 fL 6.2-12.0 [facility] RBC Auto (Bld) [#/Vol]Ordere d By: Chadwick Munson on 05-11-2023 RBC (Bld) [#/Vol] 4.58 10*6/uL 4.2-5.4 [facility] Serum or plasma calcium nicole urement (mass/volume)Ordered By: Chadwick Munson on 05-11-2023 Calcium [Mass/Vol] 9.4 mg/dL 8.5-10.1 [facility] Serum or plasma creatinine m easurement (mass/volume)Ordered By: Chadwick Munson on 05-11-2023 Creatinine [Mass/Vol] 1.15 mg/dL 0.55-1.02 [facility] Comment on above: The validity of the calculated GFR & GFRAA in patients over 70 years has not been determined. Clinical correlation is essential. Serum or plasma urea nitroge n measurement (mass/volume)Ordered By: Chadwick Munson on 05-11-2023 Urea nitrogen [Mass/Vol] 14 mg/dL 7-18 [facility] Thin prep Papanicolaou smear with manual screeningOrdered By: [facility] on 05-11-2023 Thin prep Papanicolaou smear with manual screening 3.9 g/dL 3.2-5.0 [facility] Thin prep Papanicolaou smear with manual screening 18 U/L 15-37 [facility] Thin prep Papanicolaou smear with manual screening 3 5-15 [facility] Absolute lymphocyte countOrd ered By: Marce Jack on 03-20-2023 Lymphocytes Auto (Unsp spec) [#/Vol] 2.23 10*3/uL 0.83-4.51 [facility] Basophil percentageOrdered B y: Marce Jack on 03-20-2023 Basophils/100 WBC (Bld) 0.8 % 0-1 [facility] Bilirubin [Mass/Vol] 1.00 mg/dL 0.20-1.00 [facility] Comment on above: For patients on eltr ombopag therapy, use of Dimension Ovando TBIL is not recommended. Chloride [Moles/Vol] 103 mmol/L 98-107 [facility] Cholesterol [Mass/Vol] 259 mg/dL <200 [facility] Comment on above: <200 mg/dL Desirable 200-240 mg/dL Borderline >240 mg/dL High Risk Eosinophils/100 WBC (Bld) 1.9 % 0-5 [facility] Glucose [Mass/Vol] 123 mg/dL 74-106 [facility] Comment on above: Fasting Glucose resu lt from 100 to 125 mg/dL suggests IMPAIRED HOMEOSTASIS per A.D.A. criteria. Neutrophils (Bld) [#/Vol] 4.7 10*3/uL 2.0-7.7 [facility] Neutrophils/100 WBC (Bld) 59.2 % 47-70 [facility] Potassium [Moles/Vol] 3.9 mmol/L 3.5-5.1 [facility] Protein [Mass/Vol] 8.2 g/dL 6.4-8.2 [facility] Sodium [Moles/Vol] 136 mmol/L 136-145 [facility] Triglyceride [Mass/Vol] 150 mg/dL <199 [facility] Comment on above: The drugs N-Acetylcy steine and Metamizole may falsely depress this assay.Serum Triglycerides Reference Interval Normal <150 mg/dL Borderline high 150 - 199 mg/dL High 200 - 499 mg/dL Very High > or = 500 mg/dL WBC (Bld) [#/Vol] 8.0 10*3/uL 4.4-11.0 [facility] Blood erythrocytes count (nu mber/volume)Ordered By: Marce Jack on 03-20-2023 RBC (Bld) [#/Vol] 4.81 10*6/uL 4.2-5.4 [facility] Blood hemoglobin measurement (mass/volume)Ordered By: Marce Jack on 03-20-2023 Hemoglobin (Bld) [Mass/Vol] 13.7 g/dL 12.0-15.0 [facility] Blood lymphocytes/100 leukoc ytesOrdered By: Marce Jack on 03-20-2023 Lymphocytes/100 WBC (Bld) 28.0 % 19-41 [facility] Blood monocytes/100 leukocyt esOrdered By: Marce Jack on 03-20-2023 Monocytes/100 WBC (Bld) 9.7 % 0-10 [facility] Blood platelet mean volumeOr dered By: Marce Jack on 03-20-2023 Platelet mean volume (Bld) [Entitic vol] 8.8 fL 6.2-12.0 [facility] Determination of erythrocyte mean corpuscular volume (MCV)Ordered By: Marce Jack on 03-20-2023 MCV (RBC) [Entitic vol] 91.3 fL 81-99 [facility] Hematocrit Auto (Bld) [Volum e fraction]Ordered By: Marce Jack on 03-20-2023 Hematocrit (Bld) [Volume fraction] 43.9 % 37-47 [facility] Laboratory - Chemistry and C hemistry - challengeOrdered By: Marce Jack on 03-20-2023 ALP [Catalytic activity/Vol] 70 U/L 45-117 [facility] ALT [Catalytic activity/Vol] 20 U/L 13-56 [facility] CO2 [Moles/Vol] 26.0 mmol/L 21.0-32.0 [facility] Cobalamin (Vitamin B12) [Mass/Vol] 301 pg/mL 211-911 [facility] Globulin (S) [Mass/Vol] 4.1 g/dL 2.2-4.2 [facility] Magnesium [Mass/Vol] 2.5 mg/dL 1.6-2.6 [facility] Urea nitrogen/Creatinine [Mass ratio] 11.6 mg/mg 10-20 [facility] Laboratory - Hematology and Cell countsOrdered By: Marce Jack on 03-20-2023 Erythrocyte distribution width (RBC) [Entitic vol] 52.7 fL 35.1-43.9 [facility] Erythrocyte distribution width (RBC) [Ratio] 15.7 % 11.6-14.6 [facility] Immature granulocytes/100 WBC (Bld) 0.400 % 0.0-0.9 [facility] Comment on above: IG% - Immature Granu locytes (promyelocytes, myelocytes and metamyelocytes) > 1% indicates that a LEFT SHIFT is Present. MCH (RBC) [Entitic mass] 28.5 pg 27.0-32.0 [facility] Nucleated RBC/100 WBC (Bld) [Ratio] 0 % 0-5 [facility] MCHC Auto (RBC) [Mass/Vol]Or dered By: Marce Jack on 03-20-2023 MCHC (RBC) [Mass/Vol] 31.2 g/dL 32-36 [facility] No Panel InformationOrdered By: Marce Jack on 03-20-2023 Estimated GFR (MDRD) Amer 63 mL/min >60 [facility] Comment on above: GFR Calc Estimated GFR (MDRD) Non-Af Amer 52 mL/min >60 [facility] Comment on above: Non- GFR Calc Thyroid Stimulating Hormone (TSH) 2.77 uIU/mL 0.358-3.74 [facility] Vitamin D 25-Hydroxy 29.6 ng/mL [facility] Comment on above: Vitamin D 25(OH) Sta tus Range Deficiency <20 ng/mL (50nmol/L) Insufficiency 20 - 30 ng/mL (50 - 75 nmol/L) Sufficiency 30 - 100 ng/mL (75 - 250 nmol/L) Toxicity >100 ng/mL (>250 nmol/L) Platelets bldOrdered By: Veronica Jack on 03-20-2023 Platelets (Bld) [#/Vol] 317 10*3/uL 150-450 [facility] Serum or plasma albumin nicole urement (mass/volume)Ordered By: Marec Jack on 03-20-2023 Albumin [Mass/Vol] 4.1 g/dL 3.2-5.0 [facility] Serum or plasma albumin/glob ulin mass ratioOrdered By: Marce Jack on 03-20-2023 Albumin/Globulin [Mass ratio] 1.0 {ratio} 0.9-2.4 [facility] Serum or plasma calcium nicole urement (mass/volume)Ordered By: Marce Jack on 03-20-2023 Calcium [Mass/Vol] 9.2 mg/dL 8.5-10.1 [facility] Serum or plasma cholesterol in HDL measurement (mass/volume)Ordered By: Marce Jack on 03-20-2023 Cholesterol in HDL [Mass/Vol] 53 mg/dL >40 [facility] Comment on above: The drugs N-Acetylcy steine and Metamizole may falsely depress this assay. Reference Range HDL <40 mg/dL Low HDL Cholesterol HDL >or= 60 mg/dL High HDL Cholesterol Serum or plasma cholesterol in VLDL measurement (mass/volume)Ordered By: Marce Jack on 03-20-2023 Cholesterol in VLDL [Mass/Vol] 30 mg/dL 5-40 [facility] Serum or plasma creatinine m easurement (mass/volume)Ordered By: Marce Jack on 03-20-2023 Creatinine [Mass/Vol] 1.12 mg/dL 0.55-1.02 [facility] Comment on above: The validity of the calculated GFR & GFRAA in patients over 70 years has not been determined. Clinical correlation is essential. Serum or plasma low density lipoprotein (LDL) cholesterol measurement (mass/volume)Ordered By: Marce Jack on 03-20-2023 Cholesterol in LDL [Mass/Vol] 176 mg/dL 0-130 [facility] Serum or plasma urea nitroge n measurement (mass/volume)Ordered By: Marce Jack on 03-20-2023 Urea nitrogen [Mass/Vol] 13 mg/dL 7-18 [facility] Thin prep Papanicolaou smear with manual screeningOrdered By: Marce Jack on 03-20-2023 Thin prep Papanicolaou smear with manual screening 19 U/L 15-37 [facility] Thin prep Papanicolaou smear with manual screening 7 5-15 [facility] Whole blood hemoglobin A1c/t otal hemoglobin ratio (mass fraction)Ordered By: Marce Jack on 03-20-2023 HbA1c (Bld) [Mass fraction] 6.0 % 3.8-5.6 [facility] Comment on above: Normal < 5.7 % Predi abetic 5.7 - 6.4 % Diabetic >or= 6.5 % Please note range changes. Absolute lymphocyte countOrd ered By: Chadwick Munson on 02-02-2023 Lymphocytes Auto (Unsp spec) [#/Vol] 1.68 10*3/uL 0.83-4.51 [facility] Basophil percentageOrdered B y: Chadwick Munson on 02-02-2023 Creatinine [Mass/Vol] 1.2 mg/dL 0.55-1.02 [facility] Basophils/100 WBC (Bld) 0.6 % 0-1 [facility] Bilirubin [Mass/Vol] 0.60 mg/dL 0.20-1.00 [facility] Comment on above: For patients on eltr ombopag therapy, use of Dimension Ovando TBIL is not recommended. Chloride [Moles/Vol] 104 mmol/L 98-107 [facility] Eosinophils/100 WBC (Bld) 0.6 % 0-5 [facility] Glucose [Mass/Vol] 156 mg/dL 74-106 [facility] Comment on above: Fasting Glucose resu lt greater than or equal to 126 mg/dL suggests DIABETES MELLITUS per A.D.A. criteria. Neutrophils (Bld) [#/Vol] 6.0 10*3/uL 2.0-7.7 [facility] Neutrophils/100 WBC (Bld) 71.7 % 47-70 [facility] Potassium [Moles/Vol] 4.4 mmol/L 3.5-5.1 [facility] Protein [Mass/Vol] 7.7 g/dL 6.4-8.2 [facility] Sodium [Moles/Vol] 135 mmol/L 136-145 [facility] WBC (Bld) [#/Vol] 8.4 10*3/uL 4.4-11.0 [facility] Blood erythrocytes count (nu mber/volume)Ordered By: Chadwick Munson on 02-02-2023 RBC (Bld) [#/Vol] 4.40 10*6/uL 4.2-5.4 [facility] Blood hemoglobin measurement (mass/volume)Ordered By: Chadwick Munson on 02-02-2023 Hemoglobin (Bld) [Mass/Vol] 12.1 g/dL 12.0-15.0 [facility] Blood lymphocytes/100 leukoc ytesOrdered By: Chadwick Munson on 02-02-2023 Lymphocytes/100 WBC (Bld) 20.0 % 19-41 [facility] Blood monocytes/100 leukocyt esOrdered By: [facility] Jeimy on 02-02-2023 Monocytes/100 WBC (Bld) 6.4 % 0-10 [facility] Blood platelet mean volumeOr dered By: [facility] Jeimy on 02-02-2023 Platelet mean volume (Bld) [Entitic vol] 8.5 fL 6.2-12.0 [facility] Determination of erythrocyte mean corpuscular volume (MCV)Ordered By: [facility] Jeimy on 02-02-2023 MCV (RBC) [Entitic vol] 87.7 fL 81-99 [facility] Hematocrit Auto (Bld) [Volum e fraction]Ordered By: [facility] Jeimy on 02-02-2023 Hematocrit (Bld) [Volume fraction] 38.6 % 37-47 [facility] Laboratory - Chemistry and C hemistry - challengeOrdered By: [facility] Jeimy on 02-02-2023 GFR/1.73 sq M.predicted among non-blacks MDRD (S/P/Bld) [Vol rate/Area] 47.0000 mL/min/{1.73_m2} >60 [facility] ALP [Catalytic activity/Vol] 77 U/L 45-117 [facility] ALT [Catalytic activity/Vol] 18 U/L 13-56 [facility] CO2 [Moles/Vol] 26.0 mmol/L 21.0-32.0 [facility] Globulin (S) [Mass/Vol] 4.4 g/dL 2.2-4.2 [facility] Urea nitrogen/Creatinine [Mass ratio] 8.4 mg/mg 10-20 [facility] Laboratory - Hematology and Cell countsOrdered By: [facility] Jeimy on 02-02-2023 Erythrocyte distribution width (RBC) [Entitic vol] 51.1 fL 35.1-43.9 [facility] Erythrocyte distribution width (RBC) [Ratio] 15.7 % 11.6-14.6 [facility] Immature granulocytes/100 WBC (Bld) 0.700 % 0.0-0.9 [facility] Comment on above: IG% - Immature Granu locytes (promyelocytes, myelocytes and metamyelocytes) > 1% indicates that a LEFT SHIFT is Present. MCH (RBC) [Entitic mass] 27.5 pg 27.0-32.0 [facility] Nucleated RBC/100 WBC (Bld) [Ratio] 0 % 0-5 [facility] MCHC Auto (RBC) [Mass/Vol]Or dered By: Chadwick Munson on 02-02-2023 MCHC (RBC) [Mass/Vol] 31.3 g/dL 32-36 [facility] No Panel InformationOrdered By: Chadwick Munson on 02-02-2023 Estimated Creatinine Clearance Calc 49.07 ml/min [facility] Estimated GFR (MDRD) Amer 66 mL/min >60 [facility] Comment on above: GFR Calc Estimated GFR (MDRD) Non-Af Amer 55 mL/min >60 [facility] Comment on above: Non- GFR Calc Platelets bldOrdered By: Luis Munson on 02-02-2023 Platelets (Bld) [#/Vol] 363 10*3/uL 150-450 [facility] Serum or plasma albumin nicole urement (mass/volume)Ordered By: Chadwick Munson on 02-02-2023 Albumin [Mass/Vol] 3.3 g/dL 3.2-5.0 [facility] Serum or plasma albumin/glob ulin mass ratioOrdered By: Chadwick Munson on 02-02-2023 Albumin/Globulin [Mass ratio] 0.8 {ratio} 0.9-2.4 [facility] Serum or plasma calcium nicole urement (mass/volume)Ordered By: Chadwick Munson on 02-02-2023 Calcium [Mass/Vol] 9.1 mg/dL 8.5-10.1 [facility] Serum or plasma creatinine m easurement (mass/volume)Ordered By: Chadwick Munson on 02-02-2023 Creatinine [Mass/Vol] 1.07 mg/dL 0.55-1.02 [facility] Comment on above: The validity of the calculated GFR & GFRAA in patients over 70 years has not been determined. Clinical correlation is essential. Serum or plasma urea nitroge n measurement (mass/volume)Ordered By: Chadwick Munson on 02-02-2023 Urea nitrogen [Mass/Vol] 9 mg/dL 7-18 [facility] Thin prep Papanicolaou smear with manual screeningOrdered By: Chadwick Munson on 02-02-2023 Thin prep Papanicolaou smear with manual screening 14 U/L 15-37 [facility] Thin prep Papanicolaou smear with manual screening 5 5-15 [facility] Iron (Unsp spec) [Mass/Mass] Ordered By: Chadwick Munson on 11-10-2022 Iron [Mass/Vol] 29 ug/dL Low 50-170 [facility] Iron measurement (mass/mass) Ordered By: Chadwick Munson on 11-10-2022 Iron (Unsp spec) [Mass/Mass] 29 ug/dL Low 50-170 [facility] Iron saturation [Mass fracti on]Ordered By: Chadwick Munson on 11-10-2022 Iron Saturation 8.8 % Low 15.0-55.0 [facility] Laboratory - Chemistry and C hemistry - challengeOrdered By: Chadwick Munson on 11-10-2022 Cobalamin (Vitamin B12) [Mass/Vol] 324 pg/mL 211-911 [facility] No Panel InformationOrdered By: Chadwikc Munson on 11-10-2022 Total Iron Binding Capacity 329 ug/dL 250-450 [facility] Serum or plasma ferritin aline surement (mass/volume)Ordered By: Chadwick Munson on 11-10-2022 Ferritin [Mass/Vol] 112 ng/mL 8-252 [facility] Serum or plasma iron saturat ion measurement (mass fraction)Ordered By: Chadwick Munson on 11-10-2022 Iron saturation [Mass fraction] 8.8 % Low 15.0-55.0 [facility] Absolute lymphocyte countOrd ered By: Chadwick Munson on 10-24-2022 Lymphocytes Auto (Unsp spec) [#/Vol] 1.20 10*3/uL 0.83-4.51 [facility] Basophil percentageOrdered B y: Chadwick Munson on 10-24-2022 Basophils/100 WBC (Bld) 0.5 % 0-1 [facility] Bilirubin [Mass/Vol] 0.30 mg/dL 0.20-1.00 [facility] Comment on above: For patients on eltr ombopag therapy, use of Dimension Ovando TBIL is not recommended. Chloride [Moles/Vol] 104 mmol/L 98-107 [facility] Eosinophils/100 WBC (Bld) 1.8 % 0-5 [facility] Glucose [Mass/Vol] 127 mg/dL 74-106 [facility] Comment on above: Fasting Glucose resu lt greater than or equal to 126 mg/dL suggests DIABETES MELLITUS per A.D.A. criteria. Neutrophils (Bld) [#/Vol] 8.8 10*3/uL 2.0-7.7 [facility] Neutrophils/100 WBC (Bld) 79.5 % 47-70 [facility] Potassium [Moles/Vol] 4.5 mmol/L 3.5-5.1 [facility] Protein [Mass/Vol] 7.2 g/dL 6.4-8.2 [facility] Sodium [Moles/Vol] 134 mmol/L 136-145 [facility] WBC (Bld) [#/Vol] 11.1 10*3/uL 4.4-11.0 [facility] Blood erythrocytes count (nu mber/volume)Ordered By: Chadwick Munson on 10-24-2022 RBC (Bld) [#/Vol] 3.97 10*6/uL 4.2-5.4 [facility] Blood hemoglobin measurement (mass/volume)Ordered By: Chadwick Munson on 10-24-2022 Hemoglobin (Bld) [Mass/Vol] 9.9 g/dL 12.0-15.0 [facility] Blood lymphocytes/100 leukoc ytesOrdered By: Chadwick Munson on 10-24-2022 Lymphocytes/100 WBC (Bld) 10.8 % 19-41 [facility] Blood monocytes/100 leukocyt esOrdered By: Chadwick Munson on 10-24-2022 Monocytes/100 WBC (Bld) 6.9 % 0-10 [facility] Blood platelet mean volumeOr dered By: Chadwick Munson on 10-24-2022 Platelet mean volume (Bld) [Entitic vol] 8.1 fL 6.2-12.0 [facility] Determination of erythrocyte mean corpuscular volume (MCV)Ordered By: Chadwick Munson on 10-24-2022 MCV (RBC) [Entitic vol] 82.4 fL 81-99 [facility] Hematocrit Auto (Bld) [Volum e fraction][facility] 10-24-[facility]22 Hematocrit (Bld) [Volume fraction] 32.7 % 37-47 [facility] - Chemistry and C hemistry - challengeOrdered By: [facility] on 10-24-2022 ALP [Catalytic activity/Vol] 115 U/L 45-117 [facility] ALT [Catalytic activity/Vol] 15 U/L 13-56 [facility] CO2 [Moles/Vol] 27.0 mmol/L 21.0-32.0 [facility] Globulin (S) [Mass/Vol] 4.3 g/dL 2.2-4.2 [facility] Urea nitrogen/Creatinine [Mass ratio] 15.3 mg/mg 10-20 [facility] - Hematology and Cell countsOrdered By: [facility] on 10-24-2022 Erythrocyte distribution width (RBC) [Entitic vol] 51.8 fL 35.1-43.9 [facility] Erythrocyte distribution width (RBC) [Ratio] 17.4 % 11.6-14.6 [facility] Immature granulocytes/100 WBC (Bld) 0.500 % 0.0-0.9 [facility] Comment on above: IG% - Immature Granu locytes (promyelocytes, myelocytes and metamyelocytes) > 1% indicates that a LEFT SHIFT is Present. MCH (RBC) [Entitic mass] 24.9 pg 27.0-32.0 [facility] Nucleated RBC/100 WBC (Bld) [Ratio] 0 % 0-5 [facility] MCHC Auto (RBC) [Mass/Vol]Or dered By: [facility] on 10-24-2022 MCHC (RBC) [Mass/Vol] 30.3 g/dL 32-36 [facility] No Panel InformationOrdered By: Chadwick Munson on 10-24-2022 Estimated Creatinine Clearance Calc 53.58 ml/min [facility] Estimated GFR (MDRD) Amer 73 mL/min >60 [facility] Comment on above: GFR Calc Estimated GFR (MDRD) Non-Af Amer 61 mL/min >60 [facility] Comment on above: Non- GFR Calc Platelets bldOrdered By: Luis Munson on 10-24-2022 Platelets (Bld) [#/Vol] 354 10*3/uL 150-450 [facility] Serum or plasma albumin nicole urement (mass/volume)Ordered By: Chadwick Munson on 10-24-2022 Albumin [Mass/Vol] 2.9 g/dL 3.2-5.0 [facility] Serum or plasma albumin/glob ulin mass ratioOrdered By: Chadwick Munson on 10-24-2022 Albumin/Globulin [Mass ratio] 0.7 {ratio} 0.9-2.4 [facility] Serum or plasma calcium nicole urement (mass/volume)Ordered By: Chadwick Munson on 10-24-2022 Calcium [Mass/Vol] 8.8 mg/dL 8.5-10.1 [facility] Serum or plasma creatinine m easurement (mass/volume)Ordered By: Chadwick Munson on 10-24-2022 Creatinine [Mass/Vol] 0.98 mg/dL 0.55-1.02 [facility] Comment on above: The validity of the calculated GFR & GFRAA in patients over 70 years has not been determined. Clinical correlation is essential. Serum or plasma urea nitroge n measurement (mass/volume)Ordered By: Chadwick Munson on 10-24-2022 Urea nitrogen [Mass/Vol] 15 mg/dL 7-18 [facility] Thin prep Papanicolaou smear with manual screeningOrdered By: Chadwick Munson on 10-24-2022 Thin prep Papanicolaou smear with manual screening 15 U/L 15-37 [facility] Thin prep Papanicolaou smear with manual screening 3 5-15 [facility] Absolute lymphocyte countOrd ered By: Dr. Munson on 08-01-2022 Lymphocytes Auto (Unsp spec) [#/Vol] 1.27 10*3/uL 0.83-4.51 [facility] Basophil percentageOrdered B y: Dr. Munson on 08-01-2022 Basophils/100 WBC (Bld) 0.5 % 0-1 [facility] Bilirubin [Mass/Vol] 0.80 mg/dL 0.20-1.00 [facility] Comment on above: For patients on eltr ombopag therapy, use of Dimension Ovando TBIL is not recommended. Chloride [Moles/Vol] 107 mmol/L 98-107 [facility] Eosinophils/100 WBC (Bld) 0.7 % 0-5 [facility] Glucose [Mass/Vol] 115 mg/dL 74-106 [facility] Comment on above: Fasting Glucose resu lt from 100 to 125 mg/dL suggests IMPAIRED HOMEOSTASIS per A.D.A. criteria. Neutrophils (Bld) [#/Vol] 4.1 10*3/uL 2.0-7.7 [facility] Neutrophils/100 WBC (Bld) 69.4 % 47-70 [facility] Potassium [Moles/Vol] 4.1 mmol/L 3.5-5.1 [facility] Protein [Mass/Vol] 7.3 g/dL 6.4-8.2 [facility] Sodium [Moles/Vol] 135 mmol/L 136-145 [facility] WBC (Bld) [#/Vol] 5.9 10*3/uL 4.4-11.0 [facility] Blood erythrocytes count (nu mber/volume)Ordered By: Dr. Munson on 08-01-2022 RBC (Bld) [#/Vol] 3.87 10*6/uL 4.2-5.4 [facility] Blood hemoglobin measurement (mass/volume)Ordered By: Dr. Munson on 08-01-2022 Hemoglobin (Bld) [Mass/Vol] 11.8 g/dL 12.0-15.0 [facility] Blood lymphocytes/100 leukoc ytesOrdered By: Dr. Munson on 08-01-2022 Lymphocytes/100 WBC (Bld) 21.4 % 19-41 [facility] Blood monocytes/100 leukocyt esOrdered By: Dr. Munson on 08-01-2022 Monocytes/100 WBC (Bld) 7.8 % 0-10 [facility] Blood platelet mean volumeOr dered By: Dr. Munson on 08-01-2022 Platelet mean volume (Bld) [Entitic vol] 8.1 fL 6.2-12.0 [facility] Determination of erythrocyte mean corpuscular volume (MCV)Ordered By: Dr. Munson on 08-01-2022 MCV (RBC) [Entitic vol] 93.5 fL 81-99 [facility] Hematocrit Auto (Bld) [Volum e fraction]Ordered By: Dr. Munson on 08-01-2022 Hematocrit (Bld) [Volume fraction] 36.2 % 37-47 [facility] - Chemistry and C hemistry - challengeOrdered By: Dr. Munson on 08-01-2022 ALP [Catalytic activity/Vol] 81 U/L 45-117 [facility] ALT [Catalytic activity/Vol] 20 U/L 13-56 [facility] CO2 [Moles/Vol] 26.0 mmol/L 21.0-32.0 [facility] Globulin (S) [Mass/Vol] 3.6 g/dL 2.2-4.2 [facility] Urea nitrogen/Creatinine [Mass ratio] 11.3 mg/mg 10-20 [facility] - Hematology and Cell countsOrdered By: Dr. Munson on 08-01-2022 Erythrocyte distribution width (RBC) [Entitic vol] 52.2 fL 35.1-43.9 [facility] Erythrocyte distribution width (RBC) [Ratio] 15.2 % 11.6-14.6 [facility] Immature granulocytes/100 WBC (Bld) 0.200 % 0.0-0.9 [facility] Comment on above: IG% - Immature Granu locytes (promyelocytes, myelocytes and metamyelocytes) > 1% indicates that a LEFT SHIFT is Present. MCH (RBC) [Entitic mass] 30.5 pg 27.0-32.0 [facility] Nucleated RBC/100 WBC (Bld) [Ratio] 0 % 0-5 [facility] MCHC Auto (RBC) [Mass/Vol]Or dered By: Dr. Munson on 08-01-2022 MCHC (RBC) [Mass/Vol] 32.6 g/dL 32-36 [facility] No Panel InformationOrdered By: Dr. Munson on 08-01-2022 Estimated Creatinine Clearance Calc 46.27 ml/min [facility] Estimated GFR (MDRD) Amer 61 mL/min >60 [facility] Comment on above: GFR Calc Estimated GFR (MDRD) Non-Af Amer 50 mL/min >60 [facility] Comment on above: Non- GFR Calc Platelets bldOrdered By: Dr. Munson on 08-01-2022 Platelets (Bld) [#/Vol] 195 10*3/uL 150-450 [facility] Serum or plasma albumin nicole urement (mass/volume)Ordered By: Dr. Munson on 08-01-2022 Albumin [Mass/Vol] 3.7 g/dL 3.2-5.0 [facility] Serum or plasma albumin/glob ulin mass ratioOrdered By: Dr. Munson on 08-01-2022 Albumin/Globulin [Mass ratio] 1.0 {ratio} 0.9-2.4 [facility] Serum or plasma calcium nicole urement (mass/volume)Ordered By: Dr. Munson on 08-01-2022 Calcium [Mass/Vol] 9.0 mg/dL 8.5-10.1 [facility] Serum or plasma creatinine m easurement (mass/volume)Ordered By: Dr. Munson on 08-01-2022 Creatinine [Mass/Vol] 1.15 mg/dL 0.55-1.02 [facility] Comment on above: The validity of the calculated GFR & GFRAA in patients over 70 years has not been determined. Clinical correlation is essential. Serum or plasma urea nitroge n measurement (mass/volume)Ordered By: Dr. Munson on 08-01-2022 Urea nitrogen [Mass/Vol] 13 mg/dL 7-18 [facility] Thin prep Papanicolaou smear with manual screeningOrdered By: Dr. Munson on 08-01-2022 Thin prep Papanicolaou smear with manual screening 22 U/L 15-37 [facility] Thin prep Papanicolaou smear with manual screening 2 5-15 [facility] Blood manual differential co mment interpretation (narrative result)Ordered By: Shavonne Blanchard on 06-15-2022 Manual differential comment Adams (Bld) [Interp] SCANNED [facility] [employer] mix RAST testO rdered By: Shavonne Blanchard on 06-15-2022 Microcytosis 1+ [facility] - Hematology and Cell countsOrdered By: Shavonne Blanchard on 06-15-2022 Anisocytosis Ql (Bld) 2+ [facility] Macrocytes Ql (Bld)Ordered B y: Shavonne Blanchard on 06-15-2022 Macrocytosis 1+ [facility] Macrocytes detectionOrdered By: Shavonne Blanchard on 06-15-2022 Macrocytes Ql (Bld) 1+ [facility] Manual differential comment Adams (Bld) [Interp]Ordered By: Shavonne Blanchard on 06-15-2022 Differential Comment SCANNED [facility] Thin prep Papanicolaou smear with manual screeningOrdered By: Shavonne Blanchard on 06-15-2022 Thin prep Papanicolaou smear with manual screening 1+ [facility] Basophil percentageOrdered B y: Dr. Munson on 06-07-2022 Basophil percentage 1 % 0-5 [facility] Bilirubin Test strip Ql (U)O rdered By: Shavonne Blanchard on 06-07-2022 Bilirubin Ql (U) Negative Negative [facility] Blood band neutrophil count as percentage of total leukocytesOrdered By: Dr. Munson on 06-07-2022 Band form neutrophils/100 WBC (Bld) 10 % High 0-5 [facility] Blood eosinophils/100 leukoc ytesOrdered By: Dr. Munson on 06-07-2022 Eosinophils/100 WBC (Bld) 1 % 0-5 [facility] Blood lymphocytes/100 leukoc ytesOrdered By: Dr. Munson on 06-07-2022 Lymphocytes/100 WBC (Bld) 7 % Low 19-41 [facility] Blood monocytes/100 leukocyt esOrdered By: Dr. Munson on 06-07-2022 Monocytes/100 WBC (Bld) 12 % High 0-10 [facility] Blood platelet adequacy dete ction by light microscopyOrdered By: Dr. Munson on 06-07-2022 Platelets LM Ql (Bld) MKD DEC ADEQ [facility] Blood polychromasia detectio n by light microscopyOrdered By: Dr. Munson on 06-07-2022 Polychromasia LM Ql (Bld) 1+ [facility] Blood segmented neutrophils/ 100 leukocytesOrdered By: Dr. Munson on 06-07-2022 Segmented neutrophils/100 WBC (Bld) 69 % 47-70 [facility] Cells counted Molgen (Bld/Ti ss) [#]Ordered By: Chadwick Munson on 06-07-2022 Differential Total Cells Counted 100 MANUAL DIFF [facility] Glucose Ql (U)Ordered By: Solomon Blanchard on 06-07-2022 Urine Glucose (UA) Normal mg/dl Normal [facility] Hypochromatic red blood cell detectionOrdered By: Dr. Munson on 06-07-2022 Hypochromia Ql (Bld) 1+ [facility] Hypochromia Ql (Bld)Ordered By: Chadwick Munson on 06-07-2022 Hypochromasia 1+ [facility] Ketones Test strip Ql (U)Ord ered By: Shavonne Blanchard on 06-07-2022 Ketones Ql (U) Negative Negative [facility] - Hematology and Cell countsOrdered By: Dr. Munson on 06-07-2022 Myelocytes/100 WBC (Bld) 1 % High 0-0 [facility] Nitrite Test strip Ql (U)Ord ered By: Shavonne Blanchard on 06-07-2022 Nitrite Ql (U) Negative Negative [facility] Pathologist review Adams (Unsp spec) [Interp]Ordered By: Chadwick Munson on 06-07-2022 Differential Pathologist's Review Reviewed [facility] Comment on above: Previous reported re sult: Richa lawson Edited by: RGOOD on 06/08/22:1331Leukocytosis with Neutrophilic left shift. Normocytic anemia.Thrombocytopenia.Clinical correlation necessary.Roldan Gordon M.D. 06/08/22 AMENDED REPORT 06/08/22 1331 PATH REV previously reported as: Richa lawson Platelets LM Ql (Bld)Ordered By: Chadwick Munson on 06-07-2022 Platelet Estimate MKD DEC ADEQ [facility] Polychromasia LM Ql (Bld)Ord ered By: Chadwick Munson on 06-07-2022 Polychromasia 1+ [facility] Protein Test strip Ql (U)Ord ered By: Shavonne Blanchard on 06-07-2022 Protein Ql (U) Negative Negative [facility] RBC Ql (U)Ordered By: Shavonne monroy on 06-07-2022 Urine Occult Blood Negative Negative [facility] Review by pathologistOrdered By: Dr. Munson on 06-07-2022 Pathologist review Admas (Unsp spec) [Interp] Reviewed [facility] Comment on above: Previous reported re sult: Richa lawson Edited by: RGODELMIS on 06/08/22:1331Leukocytosis with Neutrophilic left shift. Normocytic anemia.Thrombocytopenia.Clinical correlation necessary.Roldan Gordon M.D. 06/08/22 AMENDED REPORT 06/08/22 1331 PATH REV previously reported as: Richa lawson Segmented neutrophils/100 WB C (Bld)Ordered By: Chadwick Munson on 06-07-2022 Neutrophils/100 WBC (Bld) 69 % 47-70 [facility] Total cell countOrdered By: Dr. Munson on 06-07-2022 Cells counted Molgen (Bld/Tiss) [#] 100 MANUAL DIFF [facility] Trichomonas screening testOr dered By: Chadwick Munson on 06-07-2022 Nucleated Red Blood Cells/100 WBC 1 % 0-5 [facility] Urine blood detectionOrdered By: Shavonne Blanchard on 06-07-2022 RBC Ql (U) Negative Negative [facility] Urine clarityOrdered By: Stephany Blanchard on 06-07-2022 Clarity (U) Clear Clear [facility] Urine color determinationOrd ered By: Shavonne Blanchard on 06-07-2022 Color (U) Yellow Yellow [facility] Urine glucose detectionOrder ed By: Shavonne Blanchard on 06-07-2022 Glucose Ql (U) Normal mg/dl Normal [facility] Urine leukocyte esterase det ection by dipstickOrdered By: Shavonne Blanchard on 06-07-2022 Leukocyte esterase Test strip Ql (U) Negative Negative [facility] Urine pHOrdered By: Shavonne gasca on 06-07-2022 pH (U) 7.0 [pH] 5.0 - 8.0 [facility] Urine specific gravity measu rementOrdered By: Shavonne Blanchard on 06-07-2022 Specific gravity (U) [Rel density] 1.005 1.002-1.030 [facility] Urobilinogen Auto test strip Ql (U)Ordered By: Shavonne Blanchard on 06-07-2022 Urine Urobilinogen Normal mg/dl Normal [facility] Urobilinogen Ql (U) Normal mg/dl Normal [facility] Absolute lymphocyte countOrd ered By: Shavonne Blanchard on 05-31-2022 Lymphocytes Auto (Unsp spec) [#/Vol] 1.00 10*3/uL 0.83-4.51 [facility] Basophil percentageOrdered B y: Shavonne Blanchard on 05-31-2022 Basophil percentage Not Reportable [facility] Chloride [Moles/Vol] 104 mmol/L 98-107 [facility] Glucose [Mass/Vol] 115 mg/dL 74-106 [facility] Comment on above: Fasting Glucose resu lt from 100 to 125 mg/dL suggests IMPAIRED HOMEOSTASIS per A.D.A. criteria. Neutrophils (Bld) [#/Vol] 7.5 10*3/uL 2.0-7.7 [facility] Potassium [Moles/Vol] 3.9 mmol/L 3.5-5.1 [facility] Sodium [Moles/Vol] 135 mmol/L 136-145 [facility] WBC (Bld) [#/Vol] 9.1 10*3/uL 4.4-11.0 [facility] Blood erythrocytes count (nu mber/volume)Ordered By: Shavonne Blanchard on 05-31-2022 RBC (Bld) [#/Vol] 2.42 10*6/uL 4.2-5.4 [facility] Blood hemoglobin measurement (mass/volume)Ordered By: Shavonne Blanchard on 05-31-2022 Hemoglobin (Bld) [Mass/Vol] 7.5 g/dL 12.0-15.0 [facility] Blood lymphocytes/100 leukoc ytesOrdered By: Shavonne Blanchard on 05-31-2022 Lymphocytes/100 WBC (Bld) 11 % 19-41 [facility] Blood monocytes/100 leukocyt esOrdered By: Shavonne ChavezSanto on 05-31-2022 Monocytes/100 WBC (Bld) 6 % 0-10 [facility] Blood platelet adequacy dete ction by light microscopyOrdered By: Shavonne ChavezSanto on 05-31-2022 Platelets LM Ql (Bld) ADEQUATE ADEQ [facility] Blood platelet mean volumeOr dered By: Shavonne ChavezSanto on 05-31-2022 Platelet mean volume (Bld) [Entitic vol] 9.4 fL 6.2-12.0 [facility] Blood segmented neutrophils/ 100 leukocytesOrdered By: Shavonne Blanchard on 05-31-2022 Segmented neutrophils/100 WBC (Bld) 83 % 47-70 [facility] Blood vacuolated neutrophils detection by light microscopyOrdered By: Shavonne Blanchard on 05-31-2022 Neutrophils.vacuolated LM Ql (Bld) ADEQUATE [facility] Determination of erythrocyte mean corpuscular volume (MCV)Ordered By: Shavonne Blanchard on 05-31-2022 MCV (RBC) [Entitic vol] 97.5 fL 81-99 [facility] Hematocrit Auto (Bld) [Volum e fraction]Ordered By: Shavonne Blanchard on 05-31-2022 Hematocrit (Bld) [Volume fraction] 23.6 % 37-47 [facility] Hypochromatic red blood cell detectionOrdered By: Shavonne Blanchard on 05-31-2022 Hypochromia Ql (Bld) 1+ [facility] - Chemistry and C hemistry - challengeOrdered By: Shavonne Blanchard on 05-31-2022 CO2 [Moles/Vol] 24.0 mmol/L 21.0-32.0 [facility] Urea nitrogen/Creatinine [Mass ratio] 26.0 mg/mg 10-20 [facility] - Hematology and Cell countsOrdered By: Shavonne Blanchard on 05-31-2022 Anisocytosis Ql (Bld) 1+ [facility] MCH (RBC) [Entitic mass] 31.0 pg 27.0-32.0 [facility] MCHC Auto (RBC) [Mass/Vol]Or dered By: Shavonne Blanchard on 05-31-2022 MCHC (RBC) [Mass/Vol] 31.8 g/dL 32-36 [facility] Neutrophils.vacuolated LM Ql (Bld)Ordered By: Shavonne Blanchard on 05-31-2022 Toxic Vacuolation ADEQUATE [facility] No Panel InformationOrdered By: Shavonne Blanchard on 05-31-2022 Estimated Creatinine Clearance Calc 59.78 ml/min [facility] Estimated GFR (MDRD) Amer 82 mL/min >60 [facility] Comment on above: GFR Calc Estimated GFR (MDRD) Non-Af Amer 68 mL/min >60 [facility] Comment on above: Non- GFR Calc RDW Coefficient of Variation [facility] Comment on above: Test not performed RDW Standard Deviation [facility] Comment on above: Test not performed Platelets bldOrdered By: Stephany Blanchard on 05-31-2022 Platelets (Bld) [#/Vol] 138 10*3/uL 150-450 [facility] Review by pathologistOrdered By: Shavonne Blanchard on 05-31-2022 Pathologist review Adams (Unsp spec) [Interp] Reviewed [facility] Comment on above: Previous reported re sult: Richa lawson Edited by: RGOOD on 05/31/22:1340Normocytic anemia.Mild Thrombocytopenia.Clinical correlation suggested.Abhijit Bennett D.O. 05/31/22 AMENDED REPORT 05/31/22 1340 PATH REV previously reported as: Richa lawson Serum or plasma calcium nicole urement (mass/volume)Ordered By: Shavonne Blanchard on 05-31-2022 Calcium [Mass/Vol] 8.7 mg/dL 8.5-10.1 [facility] Serum or plasma creatinine m easurement (mass/volume)Ordered By: Shavonne Blanchard on 05-31-2022 Creatinine [Mass/Vol] 0.89 mg/dL 0.55-1.02 [facility] Comment on above: The validity of the calculated GFR & GFRAA in patients over 70 years has not been determined. Clinical correlation is essential. Serum or plasma urea nitroge n measurement (mass/volume)Ordered By: Shavonne Blanchard on 05-31-2022 Urea nitrogen [Mass/Vol] 23 mg/dL 7-18 [facility] Smudge cell detectionOrdered By: Shavonne Blanchard on 05-31-2022 Smudge cells LM Ql (Bld) ADEQUATE [facility] Smudge cells LM Ql (Bld)Orde red By: Shavonne Blanchard on 05-31-2022 Smudge Cells ADEQUATE [facility] Thin prep Papanicolaou smear with manual screeningOrdered By: Shavonne Blanchard on 05-31-2022 Thin prep Papanicolaou smear with manual screening 7 5-15 [facility] Total cell countOrdered By: Shavonne Blanchard on 05-31-2022 Cells counted Molgen (Bld/Tiss) [#] 100 MANUAL DIFF [facility] Basophil percentageOrdered B y: Dr. Munson on 05-24-2022 Basophils/100 WBC (Bld) 0.2 % 0-1 [facility] Bilirubin [Mass/Vol] 0.50 mg/dL 0.20-1.00 [facility] Comment on above: For patients on eltr ombopag therapy, use of Dimension Ovando TBIL is not recommended. Eosinophils/100 WBC (Bld) 0.2 % 0-5 [facility] Protein [Mass/Vol] 7.1 g/dL 6.4-8.2 [facility] Blood lymphocytes/100 leukoc ytesOrdered By: Dr. Munson on 05-24-2022 Lymphocytes/100 WBC (Bld) 11.9 % 19-41 [facility] Blood manual differential co mment interpretation (narrative result)Ordered By: Dr. Munson on 05-24-2022 Manual differential comment Adams (Bld) [Interp] SCANNED [facility] Blood monocytes/100 leukocyt esOrdered By: Dr. Munson on 05-24-2022 Monocytes/100 WBC (Bld) 12.0 % 0-10 [facility] Blood polychromasia detectio n by light microscopyOrdered By: Dr. Munson on 05-24-2022 Polychromasia LM Ql (Bld) 1+ [facility] Folate [Mass/Vol]Ordered By: Shavonne Blanchard on 05-24-2022 Folate 19.00 ng/mL 3.1-55.4 [facility] Iron measurement (mass/mass) Ordered By: Shavonne Blanchard on 05-24-2022 Iron (Unsp spec) [Mass/Mass] 61 ug/dL 50-170 [facility] - Chemistry and C hemistry - challengeOrdered By: Dr. Munson on 05-24-2022 ALP [Catalytic activity/Vol] 85 U/L 45-117 [facility] ALT [Catalytic activity/Vol] 18 U/L 13-56 [facility] Globulin (S) [Mass/Vol] 3.5 g/dL 2.2-4.2 [facility] - Hematology and Cell countsOrdered By: Dr. Munson on 05-24-2022 Immature granulocytes/100 WBC (Bld) 1.100 % 0.0-0.9 [facility] Comment on above: IG% - Immature Granu locytes (promyelocytes, myelocytes and metamyelocytes) > 1% indicates that a LEFT SHIFT is Present. Nucleated RBC/100 WBC (Bld) [Ratio] 0 % 0-5 [facility] No Panel InformationOrdered By: Shavonne Blanchard on 05-24-2022 D-Dimer Quantitative (PE/DVT) 0.58 FEU/ug/m Critically high 0.27-0.49 [facility] Comment on above: D-Dimer ELEVATED (>0 .49): Additional studies and clinicalassessments are indicated to conclude diagnosis of:Deep Vein Thrombosis (DVT) or Pulmonary Embolism (PE)CRITICAL VALUE VERIFIED. CALLED TO [facility]05/24/22 [facility] Zarina Ferris.RESULTS READ BACK BY SAME . Total Iron Binding Capacity 368 ug/dL 250-450 [facility] Vitamin B12 Level > 2000 pg/mL 211-911 [facility] Serum or plasma albumin nicole urement (mass/volume)Ordered By: Dr. Munson on 05-24-2022 Albumin [Mass/Vol] 3.6 g/dL 3.2-5.0 [facility] Serum or plasma albumin/glob ulin mass ratioOrdered By: Dr. Munson on 05-24-2022 Albumin/Globulin [Mass ratio] 1.0 {ratio} 0.9-2.4 [facility] Serum or plasma ferritin aline surement (mass/volume)Ordered By: Shavonne Blanchard on 05-24-2022 Ferritin [Mass/Vol] 127 ng/mL 8-252 [facility] Serum or plasma folate measu rement (mass/volume)Ordered By: Shavonne Blanchard on 05-24-2022 Folate [Mass/Vol] 19.00 ng/mL 3.1-55.4 [facility] Serum or plasma iron saturat ion measurement (mass fraction)Ordered By: Shavonne Blanchard on 05-24-2022 Iron saturation [Mass fraction] 16.6 % 15.0-55.0 [facility] Thin prep Papanicolaou smear with manual screeningOrdered By: Dr. Munson on 05-24-2022 Thin prep Papanicolaou smear with manual screening 2+ [facility] Thin prep Papanicolaou smear with manual screening 13 U/L 15-37 [facility] Basophil percentageOrdered B y: Dr. Munson on 05-16-2022 Basophil percentage 3.7 mg/dL 2.5-4.9 [facility] - Chemistry and C hemistry - challengeOrdered By: Dr. Munson on 05-16-2022 Magnesium [Mass/Vol] 2.2 mg/dL 1.6-2.6 [facility] Absolute lymphocyte countOrd ered By: Dr. Munson on 05-03-2022 Lymphocytes Auto (Unsp spec) [#/Vol] 0.59 10*3/uL 0.83-4.51 [facility] Basophil percentageOrdered B y: Dr. Munson on 05-03-2022 Basophil percentage 4.1 mg/dL 2.5-4.9 [facility] Basophils/100 WBC (Bld) 0.7 % 0-1 [facility] Bilirubin [Mass/Vol] 0.60 mg/dL 0.20-1.00 [facility] Comment on above: For patients on eltr ombopag therapy, use of Dimension Ovando TBIL is not recommended. Chloride [Moles/Vol] 106 mmol/L 98-107 [facility] Eosinophils/100 WBC (Bld) 0.4 % 0-5 [facility] Glucose [Mass/Vol] 111 mg/dL 74-106 [facility] Comment on above: Fasting Glucose resu lt from 100 to 125 mg/dL suggests IMPAIRED HOMEOSTASIS per A.D.A. criteria. Neutrophils (Bld) [#/Vol] 4.3 10*3/uL 2.0-7.7 [facility] Neutrophils/100 WBC (Bld) 76.7 % 47-70 [facility] Potassium [Moles/Vol] 4.1 mmol/L 3.5-5.1 [facility] Protein [Mass/Vol] 7.3 g/dL 6.4-8.2 [facility] Sodium [Moles/Vol] 136 mmol/L 136-145 [facility] WBC (Bld) [#/Vol] 5.7 10*3/uL 4.4-11.0 [facility] Blood erythrocytes count (nu mber/volume)Ordered By: Dr. Munson on 05-03-2022 RBC (Bld) [#/Vol] 3.23 10*6/uL 4.2-5.4 [facility] Blood hemoglobin measurement (mass/volume)Ordered By: Dr. Munson on 05-03-2022 Hemoglobin (Bld) [Mass/Vol] 9.7 g/dL 12.0-15.0 [facility] Blood lymphocytes/100 leukoc ytesOrdered By: Dr. Munson on 05-03-2022 Lymphocytes/100 WBC (Bld) 10.4 % 19-41 [facility] Blood manual differential co mment interpretation (narrative result)Ordered By: Dr. Munson on 05-03-2022 Manual differential comment Adams (Bld) [Interp] See comment [facility] Comment on above: LYMPHOPENIA Blood monocytes/100 leukocyt esOrdered By: Dr. Munson on 05-03-2022 Monocytes/100 WBC (Bld) 11.3 % 0-10 [facility] Blood platelet mean volumeOr dered By: Dr. Munson on 05-03-2022 Platelet mean volume (Bld) [Entitic vol] 8.3 fL 6.2-12.0 [facility] Determination of erythrocyte mean corpuscular volume (MCV)Ordered By: Dr. Munson on 05-03-2022 MCV (RBC) [Entitic vol] 89.8 fL 81-99 [facility] Hematocrit Auto (Bld) [Volum e fraction]Ordered By: Dr. Munson on 05-03-2022 Hematocrit (Bld) [Volume fraction] 29.0 % 37-47 [facility] - Chemistry and C hemistry - challengeOrdered By: Dr. Munson on 05-03-2022 ALP [Catalytic activity/Vol] 68 U/L 45-117 [facility] ALT [Catalytic activity/Vol] 21 U/L 13-56 [facility] CO2 [Moles/Vol] 25.0 mmol/L 21.0-32.0 [facility] Globulin (S) [Mass/Vol] 3.7 g/dL 2.2-4.2 [facility] Magnesium [Mass/Vol] 2.1 mg/dL 1.6-2.6 [facility] Urea nitrogen/Creatinine [Mass ratio] 21.5 mg/mg 10-20 [facility] - Hematology and Cell countsOrdered By: Dr. Munson on 05-03-2022 Anisocytosis Ql (Bld) 1+ [facility] Erythrocyte distribution width (RBC) [Entitic vol] 60.6 fL 35.1-43.9 [facility] Erythrocyte distribution width (RBC) [Ratio] 20.7 % 11.6-14.6 [facility] Immature granulocytes/100 WBC (Bld) 0.500 % 0.0-0.9 [facility] Comment on above: IG% - Immature Granu locytes (promyelocytes, myelocytes and metamyelocytes) > 1% indicates that a LEFT SHIFT is Present. MCH (RBC) [Entitic mass] 30.0 pg 27.0-32.0 [facility] Nucleated RBC/100 WBC (Bld) [Ratio] 0 % 0-5 [facility] MCHC Auto (RBC) [Mass/Vol]Or dered By: Dr. Munson on 05-03-2022 MCHC (RBC) [Mass/Vol] 33.4 g/dL 32-36 [facility] No Panel InformationOrdered By: Dr. Munson on 05-03-2022 Estimated Creatinine Clearance Calc 54.29 ml/min [facility] Estimated GFR (MDRD) Amer 74 mL/min >60 [facility] Comment on above: GFR Calc Estimated GFR (MDRD) Non-Af Amer 61 mL/min >60 [facility] Comment on above: Non- GFR Calc Platelets bldOrdered By: Dr. Munson on 05-03-2022 Platelets (Bld) [#/Vol] 244 10*3/uL 150-450 [facility] Serum or plasma albumin nicole urement (mass/volume)Ordered By: Dr. Munson on 05-03-2022 Albumin [Mass/Vol] 3.6 g/dL 3.2-5.0 [facility] Serum or plasma albumin/glob ulin mass ratioOrdered By: Dr. Munson on 05-03-2022 Albumin/Globulin [Mass ratio] 1.0 {ratio} 0.9-2.4 [facility] Serum or plasma calcium nicole urement (mass/volume)Ordered By: Dr. Munson on 05-03-2022 Calcium [Mass/Vol] 8.7 mg/dL 8.5-10.1 [facility] Serum or plasma creatinine m easurement (mass/volume)Ordered By: Dr. Munson on 05-03-2022 Creatinine [Mass/Vol] 0.98 mg/dL 0.55-1.02 [facility] Comment on above: The validity of the calculated GFR & GFRAA in patients over 70 years has not been determined. Clinical correlation is essential. Serum or plasma urea nitroge n measurement (mass/volume)Ordered By: Dr. Munson on 05-03-2022 Urea nitrogen [Mass/Vol] 21 mg/dL 7-18 [facility] Thin prep Papanicolaou smear with manual screeningOrdered By: Dr. Munson on 05-03-2022 Thin prep Papanicolaou smear with manual screening 17 U/L 15-37 [facility] Thin prep Papanicolaou smear with manual screening 5 5-15 [facility] No Panel InformationOrdered By: Shavonne Blanchard on 04-26-2022 Thyroid Stimulating Hormone (TSH) 1.47 uIU/mL 0.358-3.74 [facility] Review by pathologistOrdered By: Dr. Munson on 04-26-2022 Pathologist review Adams (Unsp spec) [Interp] Reviewed [facility] Comment on above: Previous reported re sult: Richa lawson Edited by: KIANNA on 04/28/22:917Pancytopenia.Leukopenia Normocytic anemia.Mild ThrombocytopeniaClinical correlation necessary.Roldan Gordon M.D. 04/28/22 AMENDED REPORT 04/28/22917 PATH REV previously reported as: Richa lawson Blood platelet adequacy dete ction by light microscopyOrdered By: Dr. Munson on 04-19-2022 Platelets LM Ql (Bld) MKD DEC ADEQ [facility] Thin prep Papanicolaou smear with manual screeningOrdered By: Dr. Munson on 04-19-2022 Thin prep Papanicolaou smear with manual screening 2+ [facility] Absolute lymphocyte countOrd ered By: Dr. Barbour on 03-30-2022 Lymphocytes Auto (Unsp spec) [#/Vol] 5.30 10*3/uL 0.83-4.51 [facility] Basophil percentageOrdered B y: Dr. Barbour on 03-30-2022 Basophil percentage 0-5 SEEN /hpf 0-5 [facility] Basophil percentage Not Reportable [facility] Bilirubin [Mass/Vol] 0.50 mg/dL 0.20-1.00 [facility] Comment on above: For patients on eltr ombopag therapy, use of Dimension Ovando TBIL is not recommended. Chloride [Moles/Vol] 104 mmol/L 98-107 [facility] Glucose [Mass/Vol] 163 mg/dL 74-106 [facility] Comment on above: Fasting Glucose resu lt greater than or equal to 126 mg/dL suggests DIABETES MELLITUS per A.D.A. criteria. Neutrophils (Bld) [#/Vol] 15.2 10*3/uL 2.0-7.7 [facility] Potassium [Moles/Vol] 4.4 mmol/L 3.5-5.1 [facility] Protein [Mass/Vol] 8.1 g/dL 6.4-8.2 [facility] Sodium [Moles/Vol] 137 mmol/L 136-145 [facility] WBC (Bld) [#/Vol] 22.1 10*3/uL 4.4-11.0 [facility] Bilirubin Test strip Ql (U)O rdered By: Dr. Barbour on 03-30-2022 Bilirubin Ql (U) Negative Negative [facility] Blood band neutrophil count as percentage of total leukocytesOrdered By: Dr. Barbour on 03-30-2022 Band form neutrophils/100 WBC (Bld) 6 % 0-5 [facility] Blood erythrocytes count (nu mber/volume)Ordered By: Dr. Barbour on 03-30-2022 RBC (Bld) [#/Vol] 4.69 10*6/uL 4.2-5.4 [facility] Blood hemoglobin measurement (mass/volume)Ordered By: Dr. Barbour on 03-30-2022 Hemoglobin (Bld) [Mass/Vol] 13.0 g/dL 12.0-15.0 [facility] Blood lymphocytes/100 leukoc ytesOrdered By: Dr. Barbour on 03-30-2022 Lymphocytes/100 WBC (Bld) 24 % 19-41 [facility] Blood metamyelocytes/100 graciela kocytesOrdered By: Dr. Barbour on 03-30-2022 Metamyelocytes/100 WBC (Bld) 1 % 0-1 [facility] Blood monocytes/100 leukocyt esOrdered By: Dr. Barbour on 03-30-2022 Monocytes/100 WBC (Bld) 5 % 0-10 [facility] Blood platelet adequacy dete ction by light microscopyOrdered By: Dr. Barbour on 03-30-2022 Platelets LM Ql (Bld) MKD DEC ADEQ [facility] Blood platelet mean volumeOr dered By: Dr. Barbour on 03-30-2022 Platelet mean volume (Bld) [Entitic vol] 9.8 fL 6.2-12.0 [facility] Blood segmented neutrophils/ [address] leukocytes[address]: [address] Barbour on 03-30-2022 Segmented neutrophils/100 WBC (Bld) 63 % 47-70 [facility] Determination of erythrocyte mean corpuscular volume (MCV)Ordered By: Dr. Barbour on 03-30-2022 MCV (RBC) [Entitic vol] 85.9 fL 81-99 [facility] Hematocrit Auto (Bld) [Volum e fraction]Ordered By: Dr. Barbour on 03-30-2022 Hematocrit (Bld) [Volume fraction] 40.3 % 37-47 [facility] Ketones Test strip Ql (U)Ord ered By: Dr. Barbour on 03-30-2022 Ketones Ql (U) Negative Negative [facility] - Chemistry and C hemistry - challengeOrdered By: Dr. Barbour on 03-30-2022 ALP [Catalytic activity/Vol] 132 U/L 45-117 [facility] ALT [Catalytic activity/Vol] 26 U/L 13-56 [facility] CO2 [Moles/Vol] 25.0 mmol/L 21.0-32.0 [facility] Globulin (S) [Mass/Vol] 3.9 g/dL 2.2-4.2 [facility] Lipase [Catalytic activity/Vol] 93 U/L 73-393 [facility] Urea nitrogen/Creatinine [Mass ratio] 6.0 mg/mg 10-20 [facility] - Hematology and Cell countsOrdered By: Dr. Barbour on 03-30-2022 Erythrocyte distribution width (RBC) [Entitic vol] 41.5 fL 35.1-43.9 [facility] Erythrocyte distribution width (RBC) [Ratio] 13.3 % 11.6-14.6 [facility] MCH (RBC) [Entitic mass] 27.7 pg 27.0-32.0 [facility] Myelocytes/100 WBC (Bld) 1 % 0-0 [facility] MCHC Auto (RBC) [Mass/Vol]Or dered By: Dr. Barbour on 03-30-2022 MCHC (RBC) [Mass/Vol] 32.3 g/dL 32-36 [facility] Mucus LM Ql (Urine sed)Order ed By: Dr. Barbour on 03-30-2022 Mucus Ql (Urine sed) 0 SEEN /hpf [facility] Nitrite Test strip Ql (U)Ord ered By: Dr. Barbour on 03-30-2022 Nitrite Ql (U) Positive Negative [facility] No Panel InformationOrdered By: Dr. Barbour on 03-30-2022 Estimated Creatinine Clearance Calc 35.47 ml/min [facility] Estimated GFR (MDRD) Amer 45 mL/min >60 [facility] Comment on above: GFR Calc Estimated GFR (MDRD) Non-Af Amer 37 mL/min >60 [facility] Comment on above: Non- GFR Calc Platelets bldOrdered By: Dr. Barbour on 03-30-2022 Platelets (Bld) [#/Vol] 59 10*3/uL 150-450 [facility] Protein Test strip Ql (U)Ord ered By: Dr. Barbour on 03-30-2022 Protein Ql (U) 30 mg/dl Negative [facility] RBC morphologyOrdered By: Dr Mavis Barbour on 03-30-2022 RBC morphology finding Nom (Bld) NORM C+C NORMAL NORM C&C [facility] Review by pathologiston 03-17 Pathologist review Adams (Unsp spec) [Interp] Richa lawson [facility] Work Phone: Review by pathologistOrdered By: Dr. Barbour on 03-30-2022 Pathologist review Adams (Unsp spec) [Interp] Reviewed [facility] Comment on above: Previous reported re sult: Richa lawson Edited by: RGOOD on 04/01/22:1431Leukocytosis with Neutrophilic left shift. Marked Thrombocytopenia.Clinical correlation necessary.Roldan Gordon M.D. 04/01/22 AMENDED REPORT 04/01/22 1431 PATH REV previously reported as: Richa lawson Serum or plasma albumin nicole urement (mass/volume)Ordered By: Dr. Barbour on 03-30-2022 Albumin [Mass/Vol] 4.2 g/dL 3.2-5.0 [facility] Serum or plasma albumin/glob ulin mass ratioOrdered By: Dr. Barbour on 03-30-2022 Albumin/Globulin [Mass ratio] 1.1 {ratio} 0.9-2.4 [facility] Serum or plasma calcium nicole urement (mass/volume)Ordered By: Dr. Barbour on 03-30-2022 Calcium [Mass/Vol] 9.7 mg/dL 8.5-10.1 [facility] Serum or plasma creatinine m easurement (mass/volume)Ordered By: Dr. Barbour on 03-30-2022 Creatinine [Mass/Vol] 1.50 mg/dL 0.55-1.02 [facility] Comment on above: The validity of the calculated GFR & GFRAA in patients over 70 years has not been determined. Clinical correlation is essential. Serum or plasma urea nitroge n measurement (mass/volume)Ordered By: Dr. Barbour on 03-30-2022 Urea nitrogen [Mass/Vol] 9 mg/dL 7-18 [facility] Squamous epithelial cells de tection in urine sediment by light microscopyOrdered By: Dr. Barbour on 03-30-2022 Epithelial cells.squamous LM Ql (Urine sed) 0-5 SEEN /hpf 5-10 [facility] Thin prep Papanicolaou smear with manual screeningOrdered By: Dr. Barbour on 03-30-2022 Thin prep Papanicolaou smear with manual screening 23 U/L 15-37 [facility] Thin prep Papanicolaou smear with manual screening 8 5-15 [facility] Total cell countOrdered By: Dr. Barbour on 03-30-2022 Cells counted Molgen (Bld/Tiss) [#] 100 MANUAL DIFF [facility] Urine blood detectionOrdered By: Dr. Barbour on 03-30-2022 RBC Ql (U) Negative Negative [facility] RBC Ql (U) 0 SEEN /hpf 0-5 [facility] Urine clarityOrdered By: Dr. Barbour on 03-30-2022 Clarity (U) Clear Clear [facility] Urine color determinationOrd ered By: Dr. Barbour on 03-30-2022 Color (U) Straw Yellow [facility] Urine glucose detectionOrder ed By: Dr. Barbour on 03-30-2022 Glucose Ql (U) Normal mg/dl Normal [facility] Urine leukocyte esterase det ection by dipstickOrdered By: Dr. Barbour on 03-30-2022 Leukocyte esterase Test strip Ql (U) 500 /ul Negative [facility] Urine pHOrdered By: Dr. Maddie fatima on 03-30-2022 pH (U) 8.0 [pH] 5.0 - 8.0 [facility] Urine sediment bacteria coun t by microscopy (number/high power field)Ordered By: Dr. Barbour on 03-30-2022 Bacteria LM.HPF (Urine sed) [#/Area] RARE /hpf None Seen [facility] Urine specific gravity measu rementOrdered By: Dr. Barbour on 03-30-2022 Specific gravity (U) [Rel density] 1.010 1.002-1.030 [facility] Urobilinogen Auto test strip Ql (U)Ordered By: Dr. Barbour on 03-30-2022 Urobilinogen Ql (U) Normal mg/dl Normal [facility] Absolute lymphocyte counton 03-29-2022 Lymphocytes Auto (Unsp spec) [#/Vol] 3.03 10*3/uL 0.83-4.51 [facility] Work Phone: Basophil percentageon 2021 Basophil percentage Not Reportable [facility] Work Phone: [phone] Bilirubin [Mass/Vol] 0.30 mg/dL 0.20-1.00 [facility] Work Phone: Comment on above: For patients on eltr ombopag therapy, use of Dimension Ovando TBIL is not recommended. Chloride [Moles/Vol] 105 mmol/L 98-107 [facility] Work Phone: [phone] Glucose [Mass/Vol] 110 mg/dL 74-106 [facility] Work Phone: Comment on above: Fasting Glucose resu lt from 100 to 125 mg/dL suggests IMPAIRED HOMEOSTASIS per A.D.A. criteria. Neutrophils (Bld) [#/Vol] 13.3 10*3/uL 2.0-7.7 [facility] Work Phone: [phone] Potassium [Moles/Vol] 4.1 mmol/L 3.5-5.1 [facility] Work Phone: Protein [Mass/Vol] 7.4 g/dL 6.4-8.2 [facility] Work Phone: [phone] Sodium [Moles/Vol] 137 mmol/L 136-145 [facility] Work Phone: [phone] WBC (Bld) [#/Vol] 20.2 10*3/uL 4.4-11.0 [facility] Work Phone: [phone] Blood band neutrophil count as percentage of total leukocytesOrdered By: Dr. Munson on 03-29-2022 Band form neutrophils/100 WBC (Bld) 7 % 0-5 [facility] Blood eosinophils/100 leukoc ytesOrdered By: Dr. Munson on 03-29-2022 Eosinophils/100 WBC (Bld) 1 % 0-5 [facility] Blood erythrocytes count (nu mber/volume)on 03-29-2022 RBC (Bld) [#/Vol] 4.12 10*6/uL 4.2-5.4 [facility] Work Phone: [phone] Blood hemoglobin measurement (mass/volume)on 03-29-2022 Hemoglobin (Bld) [Mass/Vol] 11.4 g/dL 12.0-15.0 [facility] Work Phone: Blood lymphocytes/100 leukoc ytesOrdered By: Dr. Munson on 03-29-2022 Lymphocytes/100 WBC (Bld) 15 % 19-41 [facility] Blood metamyelocytes/100 graciela kocytesOrdered By: Dr. Munson on 03-29-2022 Metamyelocytes/100 WBC (Bld) 5 % High 0-1 [facility] Blood monocytes/100 leukocyt esOrdered By: Dr. Munson on 03-29-2022 Monocytes/100 WBC (Bld) 7 % 0-10 [facility] Blood platelet adequacy dete ction by light microscopyon 03-29-2022 Platelets LM Ql (Bld) MKD DEC ADEQ [facility] Work Phone: Blood platelet mean volumeon 03-29-2022 Platelet mean volume (Bld) [Entitic vol] 9.3 fL 6.2-12.0 [facility] Work Phone: [phone] Blood segmented neutrophils/ 100 leukocytesOrdered By: Dr. Munson on 03-29-2022 Segmented neutrophils/100 WBC (Bld) 59 % 47-70 [facility] Determination of erythrocyte mean corpuscular volume (MCV)on 03-29-2022 MCV (RBC) [Entitic vol] 86.2 fL 81-99 [facility] Work Phone: Hematocrit Auto (Bld) [Volum e fraction]on 03-29-2022 Hematocrit (Bld) [Volume fraction] 35.5 % 37-47 [facility] Work Phone: Laboratory - Chemistry and C hemistry - challengeon 03-29-2022 ALP [Catalytic activity/Vol] 124 U/L 45-117 [facility] Work Phone: [phone] ALT [Catalytic activity/Vol] 25 U/L 13-56 [facility] Work Phone: [phone] CO2 [Moles/Vol] 26.0 mmol/L 21.0-32.0 [facility] Work Phone: [phone] Globulin (S) [Mass/Vol] 3.6 g/dL 2.2-4.2 [facility] Work Phone: Urea nitrogen/Creatinine [Mass ratio] 10.3 mg/mg 10-20 [facility] Work Phone: [phone] Laboratory - Hematology and Cell countson 03-29-2022 Erythrocyte distribution width (RBC) [Entitic vol] 41.9 fL 35.1-43.9 [facility] Work Phone: [phone] Erythrocyte distribution width (RBC) [Ratio] 13.3 % 11.6-14.6 [facility] Work Phone: [phone] MCH (RBC) [Entitic mass] 27.7 pg 27.0-32.0 [facility] Work Phone: [phone] Laboratory - Hematology and Cell countsOrdered By: Dr. Munson on 03-29-2022 Myelocytes/100 WBC (Bld) 6 % 0-0 [facility] MCHC Auto (RBC) [Mass/Vol]on 03-29-2022 MCHC (RBC) [Mass/Vol] 32.1 g/dL 32-36 [facility] Work Phone: No Panel Informationon 03-29 Estimated Creatinine Clearance Calc 45.87 ml/min [facility] Work Phone: Estimated GFR (MDRD) Amer 60 mL/min >60 [facility] Work Phone: Comment on above: GFR Calc Estimated GFR (MDRD) Non-Af Amer 50 mL/min >60 [facility] Work Phone: Comment on above: Non- GFR Calc Platelets bldon 03-29-2022 Platelets (Bld) [#/Vol] 41 10*3/uL 150-450 [facility] Work Phone: RBC morphologyOrdered By: Dr Mavis Munson on 03-29-2022 RBC morphology finding Nom (Bld) NORM C+C NORMAL NORM C&C [facility] RBC morphology finding Nom ( Bld)Ordered By: Chadwick Munson on 03-29-2022 Red Blood Cell Morphology NORM C+C NORMAL NORM C&C [facility] Review by pathologiston 03-17 Pathologist review Adams (Unsp spec) [Interp] Reviewed [facility] Work Phone: Comment on above: Previous reported re sult: August renny Edited by: RGOOD on 03/30/22:1535Leukocytosis with Neutrophilic left shift. Marked Thrombocytopenia.Clinical correlation necessary.Roldan Gordon M.D. 03/30/22 AMENDED REPORT 03/30/22 1535 PATH REV previously reported as: August renny Serum or plasma albumin nicole urement (mass/volume)on 03-29-2022 Albumin [Mass/Vol] 3.8 g/dL 3.2-5.0 [facility] Work Phone: Serum or plasma albumin/glob ulin mass ratioon 03-29-2022 Albumin/Globulin [Mass ratio] 1.1 {ratio} 0.9-2.4 [facility] Work Phone: Serum or plasma calcium nicole urement (mass/volume)on 03-29-2022 Calcium [Mass/Vol] 9.2 mg/dL 8.5-10.1 [facility] Work Phone: Serum or plasma creatinine m easurement (mass/volume)on 03-29-2022 Creatinine [Mass/Vol] 1.16 mg/dL 0.55-1.02 [facility] Work Phone: Comment on above: The validity of the calculated GFR & GFRAA in patients over 70 years has not been determined. Clinical correlation is essential. Serum or plasma urea nitroge n measurement (mass/volume)on 03-29-2022 Urea nitrogen [Mass/Vol] 12 mg/dL 7-18 [facility] Work Phone: Thin prep Papanicolaou smear with manual screeningon 03-29-2022 Thin prep Papanicolaou smear with manual screening 24 U/L 15-37 [facility] Work Phone: Thin prep Papanicolaou smear with manual screening 6 5-15 [facility] Work Phone: Total cell countOrdered By: Dr. Munson on 03-29-2022 Cells counted Molgen (Bld/Tiss) [#] 100 MANUAL DIFF [facility] Basophil percentageon 2021 Basophils/100 WBC (Bld) 0.4 % 0-1 [facility] Work Phone: [phone] Eosinophils/100 WBC (Bld) 0.8 % 0-5 [facility] Work Phone: [phone] Blood lymphocytes/100 leukoc yteson 03-15-2022 Lymphocytes/100 WBC (Bld) 31.7 % 19-41 [facility] Work Phone: [phone] Blood monocytes/100 leukocyt eson 03-15-2022 Monocytes/100 WBC (Bld) 7.0 % 0-10 [facility] Work Phone: Laboratory - Hematology and Cell countson 03-15-2022 Immature granulocytes/100 WBC (Bld) 0.400 % 0.0-0.9 [facility] Work Phone: Comment on above: IG% - Immature Granu locytes (promyelocytes, myelocytes and metamyelocytes) > 1% indicates that a LEFT SHIFT is Present. Nucleated RBC/100 WBC (Bld) [Ratio] 0 % 0-5 [facility] Work Phone: Absolute lymphocyte counton 02-28-2022 Lymphocytes Auto (Unsp spec) [#/Vol] 2.97 10*3/uL 0.83-4.51 [facility] Work Phone: Basophil percentageon 2021 Basophil percentage 3.7 mg/dL 2.5-4.9 [facility] Work Phone: Basophils/100 WBC (Bld) 0.6 % 0-1 [facility] Work Phone: Bilirubin [Mass/Vol] 0.60 mg/dL 0.20-1.00 [facility] Work Phone: Comment on above: For patients on eltr ombopag therapy, use of Dimension Ov[place] TBIL is not recommended. Chloride [Moles/Vol] 105 mmol/L 98-107 [facility] Work Phone: Eosinophils/100 WBC (Bld) 1.4 % 0-5 [facility] Work Phone: Glucose [Mass/Vol] 125 mg/dL 74-106 [facility] Work Phone: Comment on above: Fasting Glucose resu lt from 100 to 125 mg/dL suggests IMPAIRED HOMEOSTASIS per A.D.A. criteria. Neutrophils (Bld) [#/Vol] 4.5 10*3/uL 2.0-7.7 [facility] Work Phone: Neutrophils/100 WBC (Bld) 53.3 % 47-70 [facility] Work Phone: Potassium [Moles/Vol] 4.4 mmol/L 3.5-5.1 [facility] Work Phone: Protein [Mass/Vol] 7.1 g/dL 6.4-8.2 [facility] Work Phone: Sodium [Moles/Vol] 141 mmol/L 136-145 [facility] Work Phone: WBC (Bld) [#/Vol] 8.4 10*3/uL 4.4-11.0 [facility] Work Phone: Blood erythrocytes count (nu mber/volume)on 02-28-2022 RBC (Bld) [#/Vol] 4.60 10*6/uL 4.2-5.4 [facility] Work Phone: Blood hemoglobin measurement (mass/volume)on 02-28-2022 Hemoglobin (Bld) [Mass/Vol] 12.9 g/dL 12.0-15.0 [facility] Work Phone: Blood lymphocytes/100 leukoc yteson 02-28-2022 Lymphocytes/100 WBC (Bld) 35.5 % 19-41 [facility] Work Phone: Blood monocytes/100 leukocyt eson 02-28-2022 Monocytes/100 WBC (Bld) 9.0 % 0-10 [facility] Work Phone: Blood platelet mean volumeon 02-28-2022 Platelet mean volume (Bld) [Entitic vol] 8.1 fL 6.2-12.0 [facility] Work Phone: Determination of erythrocyte mean corpuscular volume (MCV)on 02-28-2022 MCV (RBC) [Entitic vol] 88.3 fL 81-99 [facility] Work Phone: Hematocrit Auto (Bld) [Volum e fraction]on 02-28-2022 Hematocrit (Bld) [Volume fraction] 40.6 % 37-47 [facility] Work Phone: Laboratory - Chemistry and C hemistry - challengeon 02-28-2022 ALP [Catalytic activity/Vol] 88 U/L 45-117 [facility] Work Phone: ALT [Catalytic activity/Vol] 29 U/L 13-56 [facility] Work Phone: CO2 [Moles/Vol] 28.0 mmol/L 21.0-32.0 [facility] Work Phone: Globulin (S) [Mass/Vol] 3.5 g/dL 2.2-4.2 [facility] Work Phone: Magnesium [Mass/Vol] 2.5 mg/dL 1.6-2.6 [facility] Work Phone: Urea nitrogen/Creatinine [Mass ratio] 10.4 mg/mg 10-20 [facility] Work Phone: Laboratory - Hematology and Cell countson 02-28-2022 Erythrocyte distribution width (RBC) [Entitic vol] 42.8 fL 35.1-43.9 [facility] Work Phone: Erythrocyte distribution width (RBC) [Ratio] 13.2 % 11.6-14.6 [facility] Work Phone: Immature granulocytes/100 WBC (Bld) 0.200 % 0.0-0.9 [facility] Work Phone: Comment on above: IG% - Immature Granu locytes (promyelocytes, myelocytes and metamyelocytes) > 1% indicates that a LEFT SHIFT is Present. MCH (RBC) [Entitic mass] 28.0 pg 27.0-32.0 [facility] Work Phone: Nucleated RBC/100 WBC (Bld) [Ratio] 0 % 0-5 [facility] Work Phone: MCHC Auto (RBC) [Mass/Vol]on 02-28-2022 MCHC (RBC) [Mass/Vol] 31.8 g/dL 32-36 [facility] Work Phone: No Panel Informationon 02-28 Estimated GFR (MDRD) Amer 51 mL/min >60 [facility] Work Phone: Comment on above: GFR Calc Estimated GFR (MDRD) Non-Af Amer 42 mL/min >60 [facility] Work Phone: Comment on above: Non- GFR Calc Platelets bldon 02-28-2022 Platelets (Bld) [#/Vol] 275 10*3/uL 150-450 [facility] Work Phone: Serum or plasma albumin nicole urement (mass/volume)on 02-28-2022 Albumin [Mass/Vol] 3.6 g/dL 3.2-5.0 [facility] Work Phone: Serum or plasma albumin/glob ulin mass ratioon 02-28-2022 Albumin/Globulin [Mass ratio] 1.0 {ratio} 0.9-2.4 [facility] Work Phone: Serum or plasma calcium nicole urement (mass/volume)on 02-28-2022 Calcium [Mass/Vol] 8.9 mg/dL 8.5-10.1 [facility] Work Phone: Serum or plasma creatinine m easurement (mass/volume)on 02-28-2022 Creatinine [Mass/Vol] 1.35 mg/dL 0.55-1.02 [facility] Work Phone: Comment on above: The validity of the calculated GFR & GFRAA in patients over 70 years has not been determined. Clinical correlation is essential. Serum or plasma urea nitroge n measurement (mass/volume)on 02-28-2022 Urea nitrogen [Mass/Vol] 14 mg/dL 7-18 [facility] Work Phone: Thin prep Papanicolaou smear with manual screeningon 02-28-2022 Thin prep Papanicolaou smear with manual screening 16 U/L 15-37 [facility] Work Phone: Thin prep Papanicolaou smear with manual screening 8 5-15 [facility] Work Phone: Basophil percentageOrdered B y: Dr. Jones on 02-07-2022 WBC (Bld) [#/Vol] 7.3 10*3/uL 4.4-11.0 [facility] Blood erythrocytes count (nu mber/volume)Ordered By: Dr. Jones on 02-07-2022 RBC (Bld) [#/Vol] 4.56 10*6/uL 4.2-5.4 [facility] Blood hemoglobin measurement (mass/volume)Ordered By: Dr. Jones on 02-07-2022 Hemoglobin (Bld) [Mass/Vol] 13.4 g/dL 12.0-15.0 [facility] Blood platelet mean volumeOr dered By: Dr. Jones on 02-07-2022 Platelet mean volume (Bld) [Entitic vol] 9.1 fL 6.2-12.0 [facility] Determination of erythrocyte mean corpuscular volume (MCV)Ordered By: Dr. Joens on 02-07-2022 MCV (RBC) [Entitic vol] 88.6 fL 81-99 [facility] Hematocrit Auto (Bld) [Volum e fraction]Ordered By: Dr. Jones on 02-07-2022 Hematocrit (Bld) [Volume fraction] 40.4 % 37-47 [facility] INR in Blood by Coagulation assayOrdered By: Dr. Jones on 02-07-2022 INR Coag (Bld) [Relative time] 1.0 {INR} [facility] Laboratory - CoagulationOrde red By: Dr. Jones on 02-07-2022 aPTT Coag (Bld) [Time] 27.9 s 24.1-36.2 [facility] PT Coag (PPP) [Time] 12.9 s 11.7-14.9 [facility] Laboratory - Hematology and Cell countsOrdered By: Dr. Jones on 02-07-2022 Erythrocyte distribution width (RBC) [Entitic vol] 43.1 fL 35.1-43.9 [facility] Erythrocyte distribution width (RBC) [Ratio] 13.3 % 11.6-14.6 [facility] MCH (RBC) [Entitic mass] 29.4 pg 27.0-32.0 [facility] MCHC Auto (RBC) [Mass/Vol]Or dered By: Dr. Jones on 02-07-2022 MCHC (RBC) [Mass/Vol] 33.2 g/dL 32-36 [facility] Platelets bldOrdered By: Dr. Jones on 02-07-2022 Platelets (Bld) [#/Vol] 282 10*3/uL 150-450 [facility] Absolute lymphocyte countOrd ered By: Dr. Barbour on 01-30-2022 Lymphocytes Auto (Unsp spec) [#/Vol] 3.04 10*3/uL 0.83-4.51 [facility] Basophil percentageOrdered B y: Dr. Barbour on 01-30-2022 Basophils/100 WBC (Bld) 0.7 % 0-1 [facility] Eosinophils/100 WBC (Bld) 2.4 % 0-5 [facility] Neutrophils (Bld) [#/Vol] 3.2 10*3/uL 2.0-7.7 [facility] Neutrophils/100 WBC (Bld) 44.7 % 47-70 [facility] WBC (Bld) [#/Vol] 7.1 10*3/uL 4.4-11.0 [facility] Bilirubin [Mass/Vol] 0.50 mg/dL 0.20-1.00 [facility] Comment on above: For patients on eltr ombopag therapy, use of Dimension [place] TBIL is not recommended. Chloride [Moles/Vol] 104 mmol/L 98-107 [facility] Glucose [Mass/Vol] 93 mg/dL 74-106 [facility] Potassium [Moles/Vol] 4.2 mmol/L 3.5-5.1 [facility] Protein [Mass/Vol] 7.1 g/dL 6.4-8.2 [facility] Sodium [Moles/Vol] 137 mmol/L 136-145 [facility] Blood erythrocytes count (nu mber/volume)Ordered By: Dr. Barbour on 01-30-2022 RBC (Bld) [#/Vol] 4.39 10*6/uL 4.2-5.4 [facility] Blood hemoglobin measurement (mass/volume)Ordered By: Dr. Barbour on 01-30-2022 Hemoglobin (Bld) [Mass/Vol] 13.3 g/dL 12.0-15.0 [facility] Blood lymphocytes/100 leukoc ytesOrdered By: Dr. Barbour on 01-30-2022 Lymphocytes/100 WBC (Bld) 42.9 % 19-41 [facility] Blood monocytes/100 leukocyt esOrdered By: Dr. Barbour on 01-30-2022 Monocytes/100 WBC (Bld) 9.2 % 0-10 [facility] Blood platelet mean volumeOr dered By: Dr. Barbour on 01-30-2022 Platelet mean volume (Bld) [Entitic vol] 8.5 fL 6.2-12.0 [facility] Determination of erythrocyte mean corpuscular volume (MCV)Ordered By: Dr. Barbour on 01-30-2022 MCV (RBC) [Entitic vol] 87.9 fL 81-99 [facility] Hematocrit Auto (Bld) [Volum e fraction]Ordered By: Dr. Barbour on 01-30-2022 Hematocrit (Bld) [Volume fraction] 38.6 % 37-47 [facility] Laboratory - Chemistry and C hemistry - challengeOrdered By: Dr. Barbour on 01-30-2022 ALP [Catalytic activity/Vol] 69 U/L 45-117 [facility] ALT [Catalytic activity/Vol] 19 U/L 13-56 [facility] CO2 [Moles/Vol] 27.0 mmol/L 21.0-32.0 [facility] Globulin (S) [Mass/Vol] 3.5 g/dL 2.2-4.2 [facility] Lipase [Catalytic activity/Vol] 139 U/L 73-393 [facility] Urea nitrogen/Creatinine [Mass ratio] 19.6 mg/mg 10-20 [facility] Laboratory - Hematology and Cell countsOrdered By: Dr. Barbour on 01-30-2022 Erythrocyte distribution width (RBC) [Entitic vol] 42.8 fL 35.1-43.9 [facility] Erythrocyte distribution width (RBC) [Ratio] 13.2 % 11.6-14.6 [facility] Immature granulocytes/100 WBC (Bld) 0.100 % 0.0-0.9 [facility] Comment on above: IG% - Immature Granu locytes (promyelocytes, myelocytes and metamyelocytes) > 1% indicates that a LEFT SHIFT is Present. MCH (RBC) [Entitic mass] 30.3 pg 27.0-32.0 [facility] Nucleated RBC/100 WBC (Bld) [Ratio] 0 % 0-5 [facility] MCHC Auto (RBC) [Mass/Vol]Or dered By: Dr. Barbour on 01-30-2022 MCHC (RBC) [Mass/Vol] 34.5 g/dL 32-36 [facility] No Panel InformationOrdered By: Dr. Barbour on 01-30-2022 Estimated Creatinine Clearance Calc 49.72 ml/min [facility] Estimated GFR (MDRD) Amer 66 mL/min >60 [facility] Comment on above: GFR Calc Estimated GFR (MDRD) Non-Af Amer 55 mL/min >60 [facility] Comment on above: Non- GFR Calc Troponin I High Sensitivity 5 pg/mL 3.0-54.0 [facility] Comment on above: Please Note: New Cher t Units and Gender Specific Reference Ranges. For more information see Policy Stat Procedure [facility] High Sensitivity Troponin (TNIH) and attachments. Platelets bldOrdered By: Dr. Barbour on 01-30-2022 Platelets (Bld) [#/Vol] 278 10*3/uL 150-450 [facility] Serum or plasma albumin nicole urement (mass/volume)Ordered By: Dr. Barbour on 01-30-2022 Albumin [Mass/Vol] 3.6 g/dL 3.2-5.0 [facility] Serum or plasma albumin/glob ulin mass ratioOrdered By: Dr. Barbour on 01-30-2022 Albumin/Globulin [Mass ratio] 1.0 {ratio} 0.9-2.4 [facility] Serum or plasma calcium nicole urement (mass/volume)Ordered By: Dr. Barbour on 01-30-2022 Calcium [Mass/Vol] 8.9 mg/dL 8.5-10.1 [facility] Serum or plasma creatinine m easurement (mass/volume)Ordered By: Dr. Barbour on 01-30-2022 Creatinine [Mass/Vol] 1.07 mg/dL 0.55-1.02 [facility] Comment on above: The validity of the calculated GFR & GFRAA in patients over 70 years has not been determined. Clinical correlation is essential. Serum or plasma urea nitroge n measurement (mass/volume)Ordered By: Dr. Barbour on 01-30-2022 Urea nitrogen [Mass/Vol] 21 mg/dL 7-18 [facility] Thin prep Papanicolaou smear with manual screeningOrdered By: Dr. Barbour on 01-30-2022 Thin prep Papanicolaou smear with manual screening 14 U/L 15-37 [facility] Thin prep Papanicolaou smear with manual screening 6 5-15 [facility] Vital Signs Date Time Vital Sign Value Performing Clinician Facility 01-28-2025 11:33-0400 Body height 165.1 cm Lynda Alonso MD Work Phone: [facility] 01-28-2025 11:33-0400 Body weight 63.04 kg Lynda Alonso MD Work Phone: [phone] [address] 01-23-2025 13:13-0400 Body height 165.1 cm Lynda Alonso MD Work Phone: [phone] [address] 01-23-2025 13:13-0400 Body mass index (BMI) [Ratio] 23.1 kg/m2 Lynda Alonso MD Work Phone: [phone] [address] 01-23-2025 13:13-0400 Body temperature 97 [degF] Lynda Alonso MD Work Phone: [phone] [address] 01-23-2025 13:13-0400 Body weight 63.13 kg Lynda Alonso MD Work Phone: [phone])[phone] [address] 01-23-2025 13:13-0400 Diastolic blood pressure 90 mm[Hg] Lynda Alonso MD Work Phone: [phone])[phone] [address] 01-23-2025 13:13-0400 Heart rate 83 /min Lynda Alonso MD Work Phone: [phone] [address] 01-23-2025 13:13-0400 Respiratory rate 18 /min Lynda Alonso MD Work Phone: [facility] 01-23-2025 13:13-0400 SaO2% (BldA) [Mass fraction] 100 % Lynda Alonso MD Work Phone: [phone] [address] 01-23-2025 13:13-0400 Systolic blood pressure 128 mm[Hg] Lynda Alonso MD Work Phone: [phone])[phone] [address] 01-10-2025 09:20-0400 Body height 165.1 cm Lynda Alonso MD Work Phone: [phone] [address] 01-10-2025 09:13-0400 Body temperature 96.8 [degF] Lynda Alonso MD Work Phone: [facility] 01-10-2025 09:13-0400 Body weight 62.59 kg Lynda Alonso MD Work Phone: [facility] 01-10-2025 09:13-0400 Diastolic blood pressure 67 mm[Hg] Lynda Alonso MD Work Phone: [facility] 01-10-2025 09:13-0400 Heart rate 81 /min Lynda Alonso MD Work Phone: [facility] 01-10-2025 09:13-0400 Respiratory rate 18 /min Lynda Alonso MD Work Phone: [facility] 01-10-2025 09:13-0400 SaO2% (BldA) [Mass fraction] 98 % Lynda Alonso MD Work Phone: [facility] 01-10-2025 09:13-0400 Systolic blood pressure 122 mm[Hg] Lynda Alonso MD Work Phone: [facility] 01-07-2025 10:18-0400 Body mass index (BMI) [Ratio] 23.5 kg/m2 Lynda Alonso MD Work Phone: [facility] 01-07-2025 10:18-0400 Body temperature 98.1 [degF] Lynda Alonso MD Work Phone: [facility] 01-07-2025 10:18-0400 Body weight 64.15 kg Lynda Alonso MD Work Phone: [facility] 01-07-2025 10:18-0400 Diastolic blood pressure 69 mm[Hg] Lynda Alonso MD Work Phone: [facility] 01-07-2025 10:18-0400 Heart rate 76 /min Lynda Alonso MD Work Phone: [facility] 01-07-2025 10:18-0400 Respiratory rate 18 /min Lynda Alonso MD Work Phone: [facility] 01-07-2025 10:18-0400 SaO2% (BldA) [Mass fraction] 100 % Lynda Alonso MD Work Phone: [facility] 01-07-2025 10:18-0400 Systolic blood pressure 111 mm[Hg] Lynda Alonso MD Work Phone: [facility] 12-19-2024 14:59-0400 Body temperature 96.9 [degF] Lynda Alonso MD Work Phone: [facility] 12-19-2024 14:59-0400 Diastolic blood pressure 76 mm[Hg] Lynda Alonso MD Work Phone: [facility] 12-19-2024 14:59-0400 Heart rate 80 /min Lynda Alonso MD Work Phone: [facility] 12-19-2024 14:59-0400 Respiratory rate 16 /min Lynda Alonso MD Work Phone: [facility] 12-19-2024 14:59-0400 Systolic blood pressure 140 mm[Hg] Lynda Alonso MD Work Phone: [facility] 12-19-2024 13:12-0400 SaO2% (BldA) [Mass fraction] 100 % Lynda Alonso MD Work Phone: [facility] 12-17-2024 08:57-0400 Body height 165.1 cm Lynda Alonso MD Work Phone: [facility] 12-17-2024 08:57-0400 Body mass index (BMI) [Ratio] 23.1 kg/m2 Lynda Alonso MD Work Phone: [facility] 12-17-2024 08:57-0400 Body temperature 98 [degF] Lynda Alonso MD Work Phone: [facility] 12-17-2024 08:57-0400 Body weight 63.21 kg Lynda Alonso MD Work Phone: [facility] 12-17-2024 08:57-0400 Diastolic blood pressure 71 mm[Hg] Lynda Alonso MD Work Phone: [facility] 12-17-2024 08:57-0400 Heart rate 81 /min Lynda Alonso MD Work Phone: [facility] 12-17-2024 08:57-0400 Respiratory rate 16 /min Lynda Alonso MD Work Phone: [facility] 12-17-2024 08:57-0400 SaO2% (BldA) [Mass fraction] 97 % Lynda Alonso MD Work Phone: [facility] 12-17-2024 08:57-0400 Systolic blood pressure 110 mm[Hg] Lynda Alonso MD Work Phone: [facility] 11-28-2024 15:07-0400 Body temperature 97.9 [degF] Lynda Alonso MD Work Phone: [facility] 11-28-2024 15:07-0400 Diastolic blood pressure 65 mm[Hg] Lynda Alonso MD Work Phone: [facility] 11-28-2024 15:07-0400 Heart rate 75 /min Lynda Alonso MD Work Phone: [facility] 11-28-2024 15:07-0400 Respiratory rate 16 /min Lynda Alonso MD Work Phone: [facility] 11-28-2024 15:07-0400 SaO2% (BldA) [Mass fraction] 100 % Lynda Alonso MD Work Phone: [facility] 11-28-2024 15:07-0400 Systolic blood pressure 114 mm[Hg] Lynda Alonso MD Work Phone: [facility] 11-26-2024 09:27-0400 Body height 165.1 cm Lynda Alonso MD Work Phone: [facility] 11-26-2024 09:27-0400 Body mass index (BMI) [Ratio] 23 kg/m2 Lynda Alonso MD Work Phone: [facility] 11-26-2024 09:27-0400 Body temperature 97.8 [degF] Lynda Alonso MD Work Phone: [facility] 11-26-2024 09:27-0400 Body weight 62.82 kg Lynda Alonso MD Work Phone: [facility] 11-26-2024 09:27-0400 Diastolic blood pressure 76 mm[Hg] Lynda Alonso MD Work Phone: [facility] 11-26-2024 09:27-0400 Heart rate 80 /min Lynda Alonso MD Work Phone: [facility] 11-26-2024 09:27-0400 Respiratory rate 16 /min Lynda Alonso MD Work Phone: [facility] 11-26-2024 09:27-0400 SaO2% (BldA) [Mass fraction] 96 % Lynda Alonso MD Work Phone: [facility] 11-26-2024 09:27-0400 Systolic blood pressure 115 mm[Hg] Lynda Alonso MD Work Phone: [facility] 11-07-2024 15:09-0400 Diastolic blood pressure 73 mm[Hg] Lynda Alonso MD Work Phone: [facility] 11-07-2024 15:09-0400 Heart rate 84 /min Lynda Alonso MD Work Phone: [facility] 11-07-2024 15:09-0400 Systolic blood pressure 123 mm[Hg] Lynda Alonso MD Work Phone: [facility] 11-07-2024 13:18-0400 Body temperature 96.8 [degF] Lynda Alonso MD Work Phone: [facility] 11-07-2024 13:18-0400 Respiratory rate 16 /min Lynda Alonso MD Work Phone: [facility] 11-07-2024 13:18-0400 SaO2% (BldA) [Mass fraction] 98 % Lynda Alonso MD Work Phone: [facility] 11-06-2024 12:59-0400 Body mass index (BMI) [Ratio] 51.9 kg/m2 Lynda Alonso MD Work Phone: [facility] 11-05-2024 08:29-0400 Body height 165.1 cm Lynda Alonso MD Work Phone: [facility] 11-05-2024 08:29-0400 Body mass index (BMI) [Ratio] 23.3 kg/m2 Lynda Alonso MD Work Phone: [facility] 11-05-2024 08:29-0400 Body temperature 98.3 [degF] Lynda Alonso MD Work Phone: 0(314)125-247564 [place] [address] 11-05-2024 08:29-0400 Body weight 63.72 kg Lynda Alonso MD Work Phone: [facility] 11-05-2024 08:29-0400 Diastolic blood pressure 77 mm[Hg] Lynda Alonso MD Work Phone: [facility] 11-05-2024 08:29-0400 Heart rate 79 /min Lynda Alonso MD Work Phone: [facility] 11-05-2024 08:29-0400 Respiratory rate 16 /min Lynda Alonso MD Work Phone: [facility] 11-05-2024 08:29-0400 SaO2% (BldA) [Mass fraction] 99 % Lynda Alonso MD Work Phone: [facility] 11-05-2024 08:29-0400 Systolic blood pressure 125 mm[Hg] Lynda Alonso MD Work Phone: [facility] 10-16-2024 14:33-0400 Body height 165.1 cm Lynda Alonso MD Work Phone: [facility] 10-16-2024 14:33-0400 Body mass index (BMI) [Ratio] 23.6 kg/m2 Lynda Alonso MD Work Phone: [facility] 10-16-2024 14:33-0400 Body temperature 97.3 [degF] Lynda Alonso MD Work Phone: [facility] 10-16-2024 14:33-0400 Body weight 64.41 kg Lynda Alonso MD Work Phone: [facility] 10-16-2024 14:33-0400 Diastolic blood pressure 72 mm[Hg] Lynda Alonso MD Work Phone: [facility] 10-16-2024 14:33-0400 Heart rate 86 /min Lynda Alonso MD Work Phone: [facility] 10-16-2024 14:33-0400 Respiratory rate 16 /min Lynda Alonso MD Work Phone: [facility] 10-16-2024 14:33-0400 SaO2% (BldA) [Mass fraction] 96 % Lynda Alonso MD Work Phone: [facility] 10-16-2024 14:33-0400 Systolic blood pressure 110 mm[Hg] Lynda Alonso MD Work Phone: [facility] 10-10-2024 15:35-0400 Body temperature 96.7 [degF] Lynda Alonso MD Work Phone: [facility] 10-10-2024 15:35-0400 Diastolic blood pressure 70 mm[Hg] Lynda Alonso MD Work Phone: [facility] 10-10-2024 15:35-0400 Heart rate 80 /min Lynda Alonso MD Work Phone: [facility] 10-10-2024 15:35-0400 Respiratory rate 16 /min Lynda Alonso MD Work Phone: [facility] 10-10-2024 15:35-0400 SaO2% (BldA) [Mass fraction] 100 % Lynda Alonso MD Work Phone: [facility] 10-10-2024 15:35-0400 Systolic blood pressure 140 mm[Hg] Lynda Alonso MD Work Phone: [facility] 10-08-2024 09:01-0400 Body height 165.1 cm Lynda Alonso MD Work Phone: [facility] 10-08-2024 09:01-0400 Body mass index (BMI) [Ratio] 23.3 kg/m2 Lnyda Alonso MD Work Phone: [facility] 10-08-2024 09:01-0400 Body temperature 98.2 [degF] Lynda Alonso MD Work Phone: [facility] 10-08-2024 09:01-0400 Body weight 63.7 kg Lynda Alonso MD Work Phone: [facility] 10-08-2024 09:01-0400 Diastolic blood pressure 73 mm[Hg] Lynda Alonso MD Work Phone: [facility] 10-08-2024 09:01-0400 Heart rate 77 /min Lynda Alonso MD Work Phone: [facility] 10-08-2024 09:01-0400 Respiratory rate 16 /min Lynda Alonso MD Work Phone: [facility] 10-08-2024 09:01-0400 SaO2% (BldA) [Mass fraction] 99 % Lynda Alonso MD Work Phone: [facility] 10-08-2024 09:01-0400 Systolic blood pressure 110 mm[Hg] Lynda Alonso MD Work Phone: [facility] 10-02-2024 10:40-0400 Body temperature 98.2 [degF] Lynda Alonso MD Work Phone: [facility] 10-02-2024 10:40-0400 Diastolic blood pressure 58 mm[Hg] Lynda Alonso MD Work Phone: [facility] 10-02-2024 10:40-0400 Heart rate 72 /min Lynda Alonso MD Work Phone: [facility] 10-02-2024 10:40-0400 Respiratory rate 16 /min Lynda Alonso MD Work Phone: [facility] 10-02-2024 10:40-0400 SaO2% (BldA) [Mass fraction] 92 % Lynda Alonso MD Work Phone: [facility] 10-02-2024 10:40-0400 Systolic blood pressure 93 mm[Hg] Lynda Alonso MD Work Phone: [facility] 10-02-2024 07:40-0400 Body mass index (BMI) [Ratio] 24.5 kg/m2 Lynda Alonso MD Work Phone: [facility] 10-02-2024 07:40-0400 Body weight 63 kg Lynda Alonso MD Work Phone: [facility] 09-30-2024 15:10-0400 Body height 165.1 cm Lynda Alonso MD Work Phone: [facility] 09-30-2024 15:08-0400 Body mass index (BMI) [Ratio] 23.1 kg/m2 Lynda Alonso MD Work Phone: [facility] 09-30-2024 15:08-0400 Body temperature 97.9 [degF] Lynda Alonso MD Work Phone: [facility] 09-30-2024 15:08-0400 Body weight 63.04 kg Lynda Alonso MD Work Phone: [facility] 09-30-2024 15:08-0400 Diastolic blood pressure 78 mm[Hg] Lynda Alonso MD Work Phone: [facility] 09-30-2024 15:08-0400 Heart rate 80 /min Lynda Alonso MD Work Phone: [facility] 09-30-2024 15:08-0400 Respiratory rate 16 /min Lynda Alonso MD Work Phone: [facility] 09-30-2024 15:08-0400 SaO2% (BldA) [Mass fraction] 100 % Lynda Alonso MD Work Phone: [facility] 09-30-2024 15:08-0400 Systolic blood pressure 116 mm[Hg] Lynda Alonso MD Work Phone: 8(252)165-097341 [address] 09-27-2024 09:09-0400 Body height 165.1 cm Lynda Alonso MD Work Phone: 4(921)006-676441 [address] 09-27-2024 09:09-0400 Body mass index (BMI) [Ratio] 23.3 kg/m2 Lynda Alonso MD Work Phone: 8(591)407-948981 [place] [address] 09-27-2024 09:09-0400 Body temperature 96 [degF] Lynda Alonso MD Work Phone: 4(931)264-142981 [place] [address] 09-27-2024 09:09-0400 Body weight 63.55 kg Lynda Alonso MD Work Phone: 6(876)527-941881 [place] [address] 09-27-2024 09:09-0400 Diastolic blood pressure 83 mm[Hg] Lynda Alonso MD Work Phone: 1(485)934-788581 [place] [address] 09-27-2024 09:09-0400 Heart rate 85 /min Lynda Alonso MD Work Phone: 8(181)414-760381 [place] [address] 09-27-2024 09:09-0400 Respiratory rate 18 /min Lynda Alonso MD Work Phone: [facility] 09-27-2024 09:09-0400 SaO2% (BldA) [Mass fraction] 100 % Lynda Alonso MD Work Phone: 3(332)515-777081 [place] [address] 09-27-2024 09:09-0400 Systolic blood pressure 163 mm[Hg] Lynda Alonso MD Work Phone: 6(150)125-757781 [place] [address] 09-24-2024 14:35-0400 Body height 165.1 cm Lynda Alonso MD Work Phone: 2(336)335-894681 [place] [address] 09-24-2024 14:35-0400 Body mass index (BMI) [Ratio] 23.5 kg/m2 Lynda Alonso MD Work Phone: 7(073)834-573264 [place] [address] 09-24-2024 14:35-0400 Body temperature 95.3 [degF] Lynda Alonso MD Work Phone: 8(522)394-422381 [place] [address] 09-24-2024 14:35-0400 Body weight 64.18 kg Lynda Alonso MD Work Phone: 6(596)304-693381 [place] [address] 09-24-2024 14:35-0400 Diastolic blood pressure 72 mm[Hg] Lynda Alonso MD Work Phone: 1(889)633-509981 [place] [address] 09-24-2024 14:35-0400 Heart rate 82 /min Lynda Alonso MD Work Phone: 9(054)429-319581 [place] [address] 09-24-2024 14:35-0400 Respiratory rate 16 /min Lynda Alonso MD Work Phone: 6(879)655-519581 [place] [address] 09-24-2024 14:35-0400 SaO2% (BldA) [Mass fraction] 98 % Lynda Alonso MD Work Phone: 9(759)375-806881 [place] [address] 09-24-2024 14:35-0400 Systolic blood pressure 112 mm[Hg] Lynda Alonso MD Work Phone: 3(543)261-780581 [place] [address] 09-11-2024 13:43-0400 Body height 165.1 cm Lynda Alonso MD Work Phone: 2(580)322-959581 [place] [address] 09-11-2024 13:43-0400 Body mass index (BMI) [Ratio] 23.3 kg/m2 Lynda Alonso MD Work Phone: 6(823)064-825781 [place] [address] 09-11-2024 13:43-0400 Body temperature 96.8 [degF] Lynda Alonso MD Work Phone: 9(799)314-966281 [place] [address] 09-11-2024 13:43-0400 Body weight 63.55 kg Lynda Alonso MD Work Phone: 2(317)147-566381 [place] [address] 09-11-2024 13:43-0400 Diastolic blood pressure 77 mm[Hg] Lynda Alonso MD Work Phone: [facility] 09-11-2024 13:43-0400 Heart rate 90 /min Lynda Alonso MD Work Phone: [facility] 09-11-2024 13:43-0400 Respiratory rate 16 /min Lynda Alonso MD Work Phone: [facility] 09-11-2024 13:43-0400 SaO2% (BldA) [Mass fraction] 99 % Lynda Alonso MD Work Phone: [facility] 09-11-2024 13:43-0400 Systolic blood pressure 128 mm[Hg] Lynda Alonso MD Work Phone: [facility] 09-03-2024 11:15-0400 Diastolic blood pressure 68 mm[Hg] Lynda Alonso MD Work Phone: [facility] 09-03-2024 11:15-0400 Heart rate 70 /min Lynda Alonso MD Work Phone: [facility] 09-03-2024 11:15-0400 Respiratory rate 14 /min Lynda Alonso MD Work Phone: [facility] 09-03-2024 11:15-0400 SaO2% (BldA) [Mass fraction] 100 % Lynda Alonso MD Work Phone: [facility] 09-03-2024 11:15-0400 Systolic blood pressure 118 mm[Hg] Lynda Alonso MD Work Phone: [facility] 09-03-2024 09:45-0400 Inhaled oxygen flow rate 2 L/min Lynda Alonso MD Work Phone: [facility] 09-03-2024 08:16-0400 Body mass index (BMI) [Ratio] 24.4 kg/m2 Lynda Alonso MD Work Phone: [facility] 09-03-2024 08:16-0400 Body weight 62.59 kg Lynda Alonso MD Work Phone: [facility] 08-29-2024 12:01-0400 Body height 165.1 cm Lynda Alonso MD Work Phone: [facility] 08-29-2024 12:01-0400 Body mass index (BMI) [Ratio] 22.9 kg/m2 Lynda Alonso MD Work Phone: [facility] 08-29-2024 12:01-0400 Body temperature 96.7 [degF] Lynda Alonso MD Work Phone: [facility] 08-29-2024 12:01-0400 Body weight 62.65 kg Lynda Alonso MD Work Phone: 0(898)909-572641 [address] 08-29-2024 12:01-0400 Diastolic blood pressure 88 mm[Hg] Lynda Alonso MD Work Phone: 7(041)972-615081 [place] [address] 08-29-2024 12:01-0400 Heart rate 75 /min Lynda Alonso MD Work Phone: [facility] 08-29-2024 12:01-0400 Respiratory rate 18 /min Lynda Alonso MD Work Phone: [facility] 08-29-2024 12:01-0400 SaO2% (BldA) [Mass fraction] 98 % Lynda Alonso MD Work Phone: 7(838)890-910241 [address] 08-29-2024 12:01-0400 Systolic blood pressure 130 mm[Hg] Lynda Alonso MD Work Phone: [facility] 08-28-2024 07:46-0400 Body mass index (BMI) [Ratio] 22.9 kg/m2 Lynda Alonso MD Work Phone: [facility] 08-28-2024 07:46-0400 Body temperature 96.3 [degF] Lynda Alonso MD Work Phone: [facility] 08-28-2024 07:46-0400 Body weight 62.65 kg Lynda Alonso MD Work Phone: [facility] 08-28-2024 07:46-0400 Diastolic blood pressure 74 mm[Hg] Lynda Alonso MD Work Phone: 4(574)229-617964 [place] [address] 08-28-2024 07:46-0400 Heart rate 86 /min Lynda Alonso MD Work Phone: 1(693)681-522481 [place] [address] 08-28-2024 07:46-0400 Respiratory rate 16 /min Lynda Alonso MD Work Phone: 2(573)827-103681 [place] [address] 08-28-2024 07:46-0400 SaO2% (BldA) [Mass fraction] 98 % Lynda Alonso MD Work Phone: 3(791)507-362481 [place] [address] 08-28-2024 07:46-0400 Systolic blood pressure 167 mm[Hg] Lynda Alonso MD Work Phone: 5(181)726-849181 [place] [address] 06-24-2024 12:57-0400 Body height 165.1 cm Lynda Alonso MD Work Phone: 3(156)097-625181 [place] [address] 06-24-2024 12:57-0400 Body mass index (BMI) [Ratio] 21.3 kg/m2 Lynda Alonso MD Work Phone: 2(678)777-810881 [place] [address] 06-24-2024 12:57-0400 Body temperature 97.1 [degF] Lynda Alonso MD Work Phone: 1(856)025-348881 [place] [address] 06-24-2024 12:57-0400 Body weight 58.22 kg Lynda Alonso MD Work Phone: 0(135)431-487681 [place] [address] 06-24-2024 12:57-0400 Diastolic blood pressure 77 mm[Hg] Lynda Alonso MD Work Phone: 3(833)190-811381 [place] [address] 06-24-2024 12:57-0400 Heart rate 79 /min Lynda Alonso MD Work Phone: 5(682)267-920581 [place] [address] 06-24-2024 12:57-0400 Respiratory rate 18 /min Lynda Alonso MD Work Phone: 0(678)160-871541 [address] 06-24-2024 12:57-0400 SaO2% (BldA) [Mass fraction] 98 % Lynda Alonso MD Work Phone: [facility] 06-24-2024 12:57-0400 Systolic blood pressure 133 mm[Hg] Lynda Alonso MD Work Phone: [facility] 06-24-2024 12:38-0400 Body weight 58.96 kg Lynda Alonso MD Work Phone: [facility] 06-24-2024 12:38-0400 Heart rate 87 /min Lynda Alonso MD Work Phone: [facility] 06-24-2024 12:38-0400 SaO2% (BldA) [Mass fraction] 98 % Lynda Alonso MD Work Phone: [facility] 06-19-2024 15:03-0500 Body mass index (BMI) [Ratio] 21.8 kg/m2 Lynda Alonso MD Work Phone: [facility] 06-19-2024 15:03-0500 Body temperature 97.7 [degF] Lynda Alonso MD Work Phone: [facility] 06-19-2024 15:03-0500 Body weight 59.42 kg Lynda Alonso MD Work Phone: [facility] 06-19-2024 15:03-0500 Diastolic blood pressure 69 mm[Hg] Lynda Alonso MD Work Phone: [facility] 06-19-2024 15:03-0500 Heart rate 80 /min Lynda Alonso MD Work Phone: [facility] 06-19-2024 15:03-0500 Respiratory rate 18 /min Lynda Alonso MD Work Phone: [facility] 06-19-2024 15:03-0500 SaO2% (BldA) [Mass fraction] 98 % Lynda Alonso MD Work Phone: [facility] 06-19-2024 15:03-0500 Systolic blood pressure 116 mm[Hg] Lynda Alonso MD Work Phone: [facility] 04-30-2024 10:12-0500 Body temperature 98.4 [degF] Lynda Alonso MD Work Phone: [facility] 04-30-2024 10:12-0500 Diastolic blood pressure 76 mm[Hg] Lynda Alonso MD Work Phone: 4(599)779-404441 [address] 04-30-2024 10:12-0500 Heart rate 64 /min Lynda Alonso MD Work Phone: 0(406)392-183141 [address] 04-30-2024 10:12-0500 Respiratory rate 18 /min Lynda Alonso MD Work Phone: 6(126)796-426741 [address] 04-30-2024 10:12-0500 SaO2% (BldA) [Mass fraction] 99 % Lynda Alonso MD Work Phone: 4(933)346-930881 [place] [address] 04-30-2024 10:12-0500 Systolic blood pressure 165 mm[Hg] Lynda Alonso MD Work Phone: [facility] 04-30-2024 07:13-0500 Body mass index (BMI) [Ratio] 25.3 kg/m2 Lynda Alonso MD Work Phone: 7(873)559-038481 [place] [address] 04-30-2024 07:13-0500 Body weight 62.9 kg Lynda Alonso MD Work Phone: 9(570)600-579964 [place] [address] 04-29-2024 10:52-0500 Diastolic blood pressure 74 mm[Hg] Lynda Alonso MD Work Phone: [facility] 04-29-2024 10:52-0500 Heart rate 86 /min Lynda Alonso MD Work Phone: [facility] 04-29-2024 10:52-0500 Respiratory rate 16 /min Lynda Alonso MD Work Phone: [facility] 04-29-2024 10:52-0500 SaO2% (BldA) [Mass fraction] 100 % Lynda Alonso MD Work Phone: 9(644)210-120664 [place] [address] 04-29-2024 10:52-0500 Systolic blood pressure 133 mm[Hg] Lynda Alonso MD Work Phone: [facility] 04-29-2024 08:57-0500 Body mass index (BMI) [Ratio] 26.2 kg/m2 Lynda Alonso MD Work Phone: [facility] 04-29-2024 08:57-0500 Body temperature 98.8 [degF] Lynda Alonso MD Work Phone: 5(959)374-362641 [address] 04-29-2024 08:57-0500 Body weight 64.6 kg Lynda Alonso MD Work Phone: 3(579)961-360581 [place] [address] 04-28-2024 12:24-0500 Body mass index (BMI) [Ratio] 24.8 kg/m2 Lynda Alonso MD Work Phone: 0(209)951-093541 [address] 04-28-2024 12:24-0500 Body temperature 98.5 [degF] Lynda Alonso MD Work Phone: 6(751)651-817941 [address] 04-28-2024 12:24-0500 Body weight 61.68 kg Lynda Alonso MD Work Phone: 9(224)233-355681 [place] [address] 04-28-2024 12:24-0500 Diastolic blood pressure 87 mm[Hg] Lynda Alonso MD Work Phone: 4(008)545-161981 [place] [address] 04-28-2024 12:24-0500 Heart rate 94 /min Lynda Alonso MD Work Phone: 4(502)375-515741 [address] 04-28-2024 12:24-0500 Respiratory rate 18 /min Lynda Alonso MD Work Phone: [facility] 04-28-2024 12:24-0500 SaO2% (BldA) [Mass fraction] 97 % Lynda Alonso MD Work Phone: [facility] 04-28-2024 12:24-0500 Systolic blood pressure 135 mm[Hg] Lynda Aolnso MD Work Phone: 1(894)941-801441 [address] 04-18-2024 14:35-0500 Body mass index (BMI) [Ratio] 23.5 kg/m2 Lynda Alonso MD Work Phone: [facility] 04-18-2024 14:35-0500 Body weight 64.12 kg Lynda Alonso MD Work Phone: [facility] 03-11-2024 14:12-0500 Body mass index (BMI) [Ratio] 23.6 kg/m2 Lynda Alonso MD Work Phone: [facility] 03-11-2024 14:12-0500 Body temperature 97.5 [degF] Lynda Alonso MD Work Phone: [facility] 03-11-2024 14:12-0500 Body weight 64.52 kg Lynda Alonso MD Work Phone: [facility] 03-11-2024 14:12-0500 Diastolic blood pressure 82 mm[Hg] Lynda Alonso MD Work Phone: [facility] 03-11-2024 14:12-0500 Heart rate 81 /min Lynda Alonso MD Work Phone: [facility] 03-11-2024 14:12-0500 Respiratory rate 16 /min Lynda Alonso MD Work Phone: [facility] 03-11-2024 14:12-0500 SaO2% (BldA) [Mass fraction] 98 % Lynda Alonso MD Work Phone: [facility] 03-11-2024 14:12-0500 Systolic blood pressure 120 mm[Hg] Lynda Alonso MD Work Phone: [facility] 2023 08:36-0400 Body height 167.64 cm RUDY Bobo PSYCHIATRY TEACHER [facility] 2023 08:36-0400 Body mass index (BMI) [Ratio] 23.7 kg/m2 RUDY Bobo PSYCHIATRY TEACHER [facility] 2023 08:36-0400 Body temperature 97.6 [degF] RUDY Bobo PSYCHIATRY TEACHER [facility] 2023 08:36-0400 Body weight 66.76 kg PSYCHIATRY TEACHER-Cristina Bobo PSYCHIATRY TEACHER [facility] 2023 08:36-0400 Diastolic blood pressure 82 mm[Hg] PSYCHIATRY TEACHER-C Lara Joaquínandrey PSYCHIATRY TEACHER [facility] 2023 08:36-0400 Heart rate 89 /min PSYCHIATRY TEACHER-C Lara Joaquínandrey PSYCHIATRY TEACHER [facility] 2023 08:36-0400 Respiratory rate 16 /min PSYCHIATRY TEACHER-C Lara Bobo PSYCHIATRY TEACHER [facility] 2023 08:36-0400 SaO2% (BldA) [Mass fraction] 97 % PSYCHIATRY TEACHER-C Lara Bobo PSYCHIATRY TEACHER [facility] 2023 08:36-0400 Systolic blood pressure 127 mm[Hg] PSYCHIATRY TEACHER-C Lara Bobo PSYCHIATRY TEACHER [facility] 06-16-2023 11:24-0500 Body height 167.64 cm DO Marce Guero Work Phone: [facility] 06-16-2023 11:24-0500 Body mass index (BMI) [Ratio] 23.2 kg/m2 DO Marce Guero Work Phone: [facility] 06-16-2023 11:24-0500 Body temperature 98.2 [degF] DO Marce Guero Work Phone: [facility] 06-16-2023 11:24-0500 Body weight 65.31 kg DO Marce Guero Work Phone: [facility] 06-16-2023 11:24-0500 Diastolic blood pressure 96 mm[Hg] DO Marce Guero Work Phone: [facility] 06-16-2023 11:24-0500 Heart rate 88 /min DO Marce Guero Work Phone: [facility] 06-16-2023 11:24-0500 Respiratory rate 20 /min DO Marce Guero Work Phone: [facility] 06-16-2023 11:24-0500 SaO2% (BldA) [Mass fraction] 98 % DO Marce Guero Work Phone: [facility] 06-16-2023 11:24-0500 Systolic blood pressure 142 mm[Hg] DO Marce Guero Work Phone: [facility] 05-11-2023 09:04-0500 Body mass index (BMI) [Ratio] 23.6 kg/m2 DO Marce Guero Work Phone: [facility] 05-11-2023 09:04-0500 Body temperature 98.1 [degF] DO Marce Guero Work Phone: [facility] 05-11-2023 09:04-0500 Body weight 66.39 kg DO Marce Guero Work Phone: [facility] 05-11-2023 09:04-0500 Diastolic blood pressure 71 mm[Hg] DO Marce Guero Work Phone: [facility] 05-11-2023 09:04-0500 Heart rate 90 /min DO Marce Guero Work Phone: [facility] 05-11-2023 09:04-0500 Respiratory rate 8 /min DO Marce Guero Work Phone: [facility] 05-11-2023 09:04-0500 SaO2% (BldA) [Mass fraction] 100 % DO Marce Guero Work Phone: [facility] 05-11-2023 09:04-0500 Systolic blood pressure 112 mm[Hg] DO Marce Guero Work Phone: [facility] 04-14-2023 08:56-0500 Body temperature 96.6 [degF] DO Marce Guero Work Phone: [facility] 04-14-2023 08:56-0500 Diastolic blood pressure 81 mm[Hg] DO Marce Guero Work Phone: [facility] 04-14-2023 08:56-0500 Heart rate 95 /min DO Marce Guero Work Phone: [facility] 04-14-2023 08:56-0500 Respiratory rate 17 /min DO Marce Jack Work Phone: [facility] 04-14-2023 08:56-0500 SaO2% (BldA) [Mass fraction] 95 % DO Marce Jack Work Phone: [facility] 04-14-2023 08:56-0500 Systolic blood pressure 132 mm[Hg] DO Marce Jack Work Phone: [facility] 03-24-2023 08:38-0500 Body height 167.64 cm RUBY-Cristina Bobo [facility] 03-24-2023 08:38-0500 Body mass index (BMI) [Ratio] 23.6 kg/m2 RUBY-Cristina Bobo [facility] 03-24-2023 08:38-0500 Body temperature 97.4 [degF] PSYCHIATRY TEACHER-Cristina Bobo PSYCHIATRY TEACHER [facility] 03-24-2023 08:38-0500 Body weight 66.45 kg PSYCHIATRY TEACHER-Cristina Bobo PSYCHIATRY TEACHER [facility] 03-24-2023 08:38-0500 Diastolic blood pressure 76 mm[Hg] RUBY-Cristina Bobo PSYCHIATRY TEACHER [facility] 03-24-2023 08:38-0500 Heart rate 75 /min PSYCHIATRY TEACHER-Cristina Bobo PSYCHIATRY TEACHER [facility] 03-24-2023 08:38-0500 Respiratory rate 16 /min RUBY-Cristina Bobo PSYCHIATRY TEACHER [facility] 03-24-2023 08:38-0500 SaO2% (BldA) [Mass fraction] 98 % RUBY-Cristina Bobo PSYCHIATRY TEACHER [facility] 03-24-2023 08:38-0500 Systolic blood pressure 123 mm[Hg] RUDY Bobo PSYCHIATRY TEACHER [facility] 02-15-2023 06:01-0400 Body height 167.64 cm RUBY-Cristina Bobo PSYCHIATRY TEACHER [facility] 02-15-2023 06:01-0400 Body mass index (BMI) [Ratio] 23.7 kg/m2 RUBY-Cristina Bobo PSYCHIATRY TEACHER [facility] 02-15-2023 06:01-0400 Body temperature 97.4 [degF] PSYCHIATRY TEACHER-Cristina Bermudez Joaquínandrey PSYCHIATRY TEACHER [facility] 02-15-2023 06:01-0400 Body weight 66.67 kg PSYCHIATRY TEACHER-Cristina Bermudez Joaquínandrey PSYCHIATRY TEACHER [facility] 02-15-2023 06:01-0400 Diastolic blood pressure 77 mm[Hg] PSYCHIATRY TEACHER-Cristina Bermudez Jihan PSYCHIATRY TEACHER [facility] 02-15-2023 06:01-0400 Heart rate 82 /min PSYCHIATRY TEACHER-Cristina Lara Jihan PSYCHIATRY TEACHER [facility] 02-15-2023 06:01-0400 Respiratory rate 16 /min PSYCHIATRY TEACHER-Cristina Bermudez Joaquínandrey PSYCHIATRY TEACHER [facility] 02-15-2023 06:01-0400 SaO2% (BldA) [Mass fraction] 96 % PSYCHIATRY TEACHER-Cristina Bermudez Joaquínandrey PSYCHIATRY TEACHER [facility] 02-15-2023 06:01-0400 Systolic blood pressure 123 mm[Hg] PSYCHIATRY TEACHER-Cristina Lara Bobo PSYCHIATRY TEACHER [facility] 02-09-2023 11:34-0400 Body mass index (BMI) [Ratio] 23.8 kg/m2 PSYCHIATRY TEACHER-Cristina Bermudez Joaquínandrey PSYCHIATRY TEACHER [facility] 02-09-2023 11:34-0400 Body temperature 97.3 [degF] PSYCHIATRY TEACHER-Cristina Bermudez Joaquínandrey PSYCHIATRY TEACHER [facility] 02-09-2023 11:34-0400 Body weight 66.79 kg PSYCHIATRY TEACHER-Cristina Bermudez Joaquínandrey PSYCHIATRY TEACHER [facility] 02-09-2023 11:34-0400 Diastolic blood pressure 81 mm[Hg] PSYCHIATRY TEACHER-Cristina Lara Jihan PSYCHIATRY TEACHER [facility] 02-09-2023 11:34-0400 Heart rate 81 /min PSYCHIATRY TEACHER-Cristina Lara Joaquínandrey PSYCHIATRY TEACHER [facility] 02-09-2023 11:34-0400 Respiratory rate 18 /min PSYCHIATRY TEACHER-Cristina Lara Jihan PSYCHIATRY TEACHER [facility] 02-09-2023 11:34-0400 SaO2% (BldA) [Mass fraction] 99 % PSYCHIATRY TEACHER-Cristina Bermudez Jihan PSYCHIATRY TEACHER [facility] 02-09-2023 11:34-0400 Systolic blood pressure 117 mm[Hg] PSYCHIATRY TEACHER-Cristina Lara Bobo PSYCHIATRY TEACHER [facility] 12-09-2022 10:07-0400 Body height 167.64 cm PSYCHIATRY TEACHER-Cristina Bobo PSYCHIATRY TEACHER [facility] 12-09-2022 10:07-0400 Body mass index (BMI) [Ratio] 24.3 kg/m2 PSYCHIATRY TEACHER-Cristina Lara Bobo PSYCHIATRY TEACHER [facility] 12-09-2022 10:07-0400 Body temperature 97.5 [degF] PSYCHIATRY TEACHER-Cristina Lara Bobo PSYCHIATRY TEACHER [facility] 12-09-2022 10:07-0400 Body weight 68.18 kg PSYCHIATRY TEACHER-Cristina Bobo PSYCHIATRY TEACHER [facility] 12-09-2022 10:07-0400 Diastolic blood pressure 86 mm[Hg] PSYCHIATRY TEACHER-C Lara Bobo PSYCHIATRY TEACHER [facility] 12-09-2022 10:07-0400 Heart rate 82 /min PSYCHIATRY TEACHER-Cristina Bobo PSYCHIATRY TEACHER [facility] 12-09-2022 10:07-0400 Respiratory rate 16 /min PSYCHIATRY TEACHER-C Lara Bobo PSYCHIATRY TEACHER [facility] 12-09-2022 10:07-0400 SaO2% (BldA) [Mass fraction] 100 % PSYCHIATRY TEACHER-Cristina Bobo PSYCHIATRY TEACHER [facility] 12-09-2022 10:07-0400 Systolic blood pressure 132 mm[Hg] PSYCHIATRY TEACHER-Cristina Lara Bobo PSYCHIATRY TEACHER [facility] 11-10-2022 11:11-0400 Body height 167.64 cm PSYCHIATRY TEACHER-Cristina Bobo PSYCHIATRY TEACHER [facility] 11-01-2022 11:03-0400 Body mass index (BMI) [Ratio] 24 kg/m2 PSYCHIATRY TEACHER-Cristina Bobo PSYCHIATRY TEACHER [facility] 11-01-2022 11:03-0400 Body temperature 98.2 [degF] PSYCHIATRY TEACHER-Cristina Lara Bobo PSYCHIATRY TEACHER [facility] 11-01-2022 11:03-0400 Body weight 67.69 kg PSYCHIATRY TEACHER-Cristina Bobo PSYCHIATRY TEACHER [facility] 11-01-2022 11:03-0400 Diastolic blood pressure 80 mm[Hg] PSYCHIATRY TEACHER-Cristina Bobo PSYCHIATRY TEACHER [facility] 11-01-2022 11:03-0400 Diastolic blood pressure 68 mm[Hg] PSYCHIATRY TEACHER-Cristina Bobo PSYCHIATRY TEACHER [facility] 11-01-2022 11:03-0400 Heart rate 107 /min PSYCHIATRY TEACHER-Cristina Bobo PSYCHIATRY TEACHER [facility] 11-01-2022 11:03-0400 Respiratory rate 16 /min PSYCHIATRY TEACHER-Cristina Lara Jihan PSYCHIATRY TEACHER [facility] 11-01-2022 11:03-0400 SaO2% (BldA) [Mass fraction] 96 % PSYCHIATRY TEACHER-Cristina Lara Jihan PSYCHIATRY TEACHER [facility] 11-01-2022 11:03-0400 Systolic blood pressure 120 mm[Hg] PSYCHIATRY TEACHER-Cristina Lara Bobo PSYCHIATRY TEACHER [facility] 11-01-2022 11:03-0400 Systolic blood pressure 102 mm[Hg] PSYCHIATRY TEACHER-Cristina Lara Bobo PSYCHIATRY TEACHER [facility] 10-28-2022 07:29-0400 Body mass index (BMI) [Ratio] 23.8 kg/m2 PSYCHIATRY TEACHER-Cristina Bobo PSYCHIATRY TEACHER [facility] 10-28-2022 07:29-0400 Body temperature 97.2 [degF] PSYCHIATRY TEACHER-Cristina Lara Bobo PSYCHIATRY TEACHER [facility] 10-28-2022 07:29-0400 Body weight 67.13 kg PSYCHIATRY TEACHER-Cristina Bobo PSYCHIATRY TEACHER [facility] 10-28-2022 07:29-0400 Heart rate 102 /min PSYCHIATRY TEACHER-Cristina Lara Bobo PSYCHIATRY TEACHER [facility] 10-28-2022 07:29-0400 Respiratory rate 16 /min PSYCHIATRY TEACHER-Cristina Lara Bobo PSYCHIATRY TEACHER [facility] 10-28-2022 07:29-0400 SaO2% (BldA) [Mass fraction] 100 % PSYCHIATRY TEACHER-Cristina Lara Bobo PSYCHIATRY TEACHER [facility] 09-27-2022 08:14-0400 Body mass index (BMI) [Ratio] 24.2 kg/m2 PSYCHIATRY TEACHER-Cristina Lara Bobo PSYCHIATRY TEACHER [facility] 09-27-2022 08:14-0400 Body temperature 97.6 [degF] PSYCHIATRY TEACHER-Cristina Lara Bobo PSYCHIATRY TEACHER [facility] 09-27-2022 08:14-0400 Body weight 68.03 kg PSYCHIATRY TEACHER-Cristina Bobo PSYCHIATRY TEACHER [facility] 09-27-2022 08:14-0400 Diastolic blood pressure 93 mm[Hg] PSYCHIATRY TEACHER-Cristina Bobo PSYCHIATRY TEACHER [facility] 09-27-2022 08:14-0400 Heart rate 121 /min PSYCHIATRY TEACHER-Cristina Bobo PSYCHIATRY TEACHER [facility] 09-27-2022 08:14-0400 Respiratory rate 18 /min PSYCHIATRY TEACHER-C Lara Michener PSYCHIATRY TEACHER [facility] 09-27-2022 08:14-0400 SaO2% (BldA) [Mass fraction] 97 % PSYCHIATRY TEACHER-Cristina Bobo PSYCHIATRY TEACHER [facility] 09-27-2022 08:14-0400 Systolic blood pressure 149 mm[Hg] PSYCHIATRY TEACHER-Cristina Bobo PSYCHIATRY TEACHER [facility] 09-09-2022 10:57-0400 Body height 167.64 cm PSYCHIATRY TEACHER-Cristina Bermudez Joaquínandrey PSYCHIATRY TEACHER [facility] 09-09-2022 10:49-0400 Body mass index (BMI) [Ratio] 25.4 kg/m2 PSYCHIATRY TEACHER-Cristina Bermudez Joaquínandrey PSYCHIATRY TEACHER [facility] 09-09-2022 10:49-0400 Body temperature 98 [degF] PSYCHIATRY TEACHER-Cristina Bermudez Joaquínandrey PSYCHIATRY TEACHER [facility] 09-09-2022 10:49-0400 Body weight 71.38 kg PSYCHIATRY TEACHER-Cristina Lara Jihan PSYCHIATRY TEACHER [facility] 09-09-2022 10:49-0400 Diastolic blood pressure 83 mm[Hg] PSYCHIATRY TEACHER-Cristina Bermudez Joaquínandrey PSYCHIATRY TEACHER [facility] 09-09-2022 10:49-0400 Heart rate 109 /min PSYCHIATRY TEACHER-Cristina Bermudez Joaquínandrey PSYCHIATRY TEACHER [facility] 09-09-2022 10:49-0400 Respiratory rate 18 /min PSYCHIATRY TEACHER-Cristina Bermudez Joaquínandrey PSYCHIATRY TEACHER [facility] 09-09-2022 10:49-0400 SaO2% (BldA) [Mass fraction] 98 % PSYCHIATRY TEACHER-Cristina Bermudez Joaquínandrey PSYCHIATRY TEACHER [facility] 09-09-2022 10:49-0400 Systolic blood pressure 134 mm[Hg] PSYCHIATRY TEACHER-Cristina Bermudez Joaquínandrey PSYCHIATRY TEACHER [facility] 08-01-2022 11:05-0400 Body mass index (BMI) [Ratio] 24.7 kg/m2 PSYCHIATRY TEACHER-Cristina Lara Jihan PSYCHIATRY TEACHER [facility] 08-01-2022 11:05-0400 Body temperature 97.5 [degF] PSYCHIATRY TEACHER-Cristina Bermudez Joaquínandrey PSYCHIATRY TEACHER [facility] 08-01-2022 11:05-0400 Body weight 69.39 kg PSYCHIATRY TEACHER-Cristina Lara Jihan PSYCHIATRY TEACHER [facility] 08-01-2022 11:05-0400 Diastolic blood pressure 89 mm[Hg] PSYCHIATRY TEACHER-Cristina Bobo PSYCHIATRY TEACHER [facility] 08-01-2022 11:05-0400 Heart rate 111 /min PSYCHIATRY TEACHER-C Lara Bobo PSYCHIATRY TEACHER [facility] 08-01-2022 11:05-0400 Respiratory rate 16 /min PSYCHIATRY TEACHER-Cristina Lara Bobo PSYCHIATRY TEACHER [facility] 08-01-2022 11:05-0400 SaO2% (BldA) [Mass fraction] 100 % PSYCHIATRY TEACHER-Cristina Bobo PSYCHIATRY TEACHER [facility] 08-01-2022 11:05-0400 Systolic blood pressure 142 mm[Hg] PSYCHIATRY TEACHER-C Lara Bobo PSYCHIATRY TEACHER [facility] 06-30-2022 09:11-0400 Body mass index (BMI) [Ratio] 24.7 kg/m2 PSYCHIATRY TEACHER-Cristina Bobo PSYCHIATRY TEACHER [facility] 06-30-2022 09:11-0400 Body temperature 97.2 [degF] PSYCHIATRY TEACHER-Cristina Bobo PSYCHIATRY TEACHER [facility] 06-30-2022 09:11-0400 Body weight 69.39 kg PSYCHIATRY TEACHER-Cristina Bobo PSYCHIATRY TEACHER [facility] 06-30-2022 09:11-0400 Diastolic blood pressure 81 mm[Hg] PSYCHIATRY TEACHER-Cristina Bobo PSYCHIATRY TEACHER [facility] 06-30-2022 09:11-0400 Heart rate 112 /min PSYCHIATRY TEACHER-Cristina Bobo PSYCHIATRY TEACHER [facility] 06-30-2022 09:11-0400 Respiratory rate 18 /min PSYCHIATRY TEACHER-Cristina Bobo PSYCHIATRY TEACHER [facility] 06-30-2022 09:11-0400 SaO2% (BldA) [Mass fraction] 100 % PSYCHIATRY TEACHER-Cristina Bobo PSYCHIATRY TEACHER [facility] 06-30-2022 09:11-0400 Systolic blood pressure 123 mm[Hg] PSYCHIATRY TEACHER-Cristina Bobo PSYCHIATRY TEACHER [facility] 06-30-2022 07:48-0400 Body mass index (BMI) [Ratio] 24.7 kg/m2 PSYCHIATRY TEACHER-Cristina Bobo PSYCHIATRY TEACHER [facility] 06-30-2022 07:48-0400 Body temperature 97.5 [degF] PSYCHIATRY TEACHER-Cristina Bobo PSYCHIATRY TEACHER [facility] 06-30-2022 07:48-0400 Body weight 69.39 kg PSYCHIATRY TEACHER-Cristina Bobo PSYCHIATRY TEACHER [facility] 06-30-2022 07:48-0400 Diastolic blood pressure 83 mm[Hg] PSYCHIATRY TEACHER-C Lara Bobo PSYCHIATRY TEACHER [facility] 06-30-2022 07:48-0400 Heart rate 117 /min PSYCHIATRY TEACHER-C Lara Bobo PSYCHIATRY TEACHER [facility] 06-30-2022 07:48-0400 Respiratory rate 18 /min PSYCHIATRY TEACHER-C Lara Bobo PSYCHIATRY TEACHER [facility] 06-30-2022 07:48-0400 SaO2% (BldA) [Mass fraction] 99 % PSYCHIATRY TEACHER-C Lara Bobo PSYCHIATRY TEACHER [facility] 06-30-2022 07:48-0400 Systolic blood pressure 136 mm[Hg] PSYCHIATRY TEACHER-C Lara Bobo PSYCHIATRY TEACHER [facility] 06-15-2022 08:05-0500 Body mass index (BMI) [Ratio] 25 kg/m2 PSYCHIATRY TEACHER-C Lara Bobo PSYCHIATRY TEACHER [facility] 06-15-2022 08:05-0500 Body temperature 97 [degF] PSYCHIATRY TEACHER-C Lara Bobo PSYCHIATRY TEACHER [facility] 06-15-2022 08:05-0500 Body weight 70.5 kg PSYCHIATRY TEACHER-Cristina Lara Bobo PSYCHIATRY TEACHER [facility] 06-15-2022 08:05-0500 Diastolic blood pressure 80 mm[Hg] PSYCHIATRY TEACHER-Cristina Bobo PSYCHIATRY TEACHER [facility] 06-15-2022 08:05-0500 Heart rate 120 /min PSYCHIATRY TEACHER-C Lara Bobo PSYCHIATRY TEACHER [facility] 06-15-2022 08:05-0500 Respiratory rate 16 /min PSYCHIATRY TEACHER-Cristina Bobo PSYCHIATRY TEACHER [facility] 06-15-2022 08:05-0500 SaO2% (BldA) [Mass fraction] 100 % PSYCHIATRY TEACHER-Cristina Lara Bobo PSYCHIATRY TEACHER [facility] 06-15-2022 08:05-0500 Systolic blood pressure 136 mm[Hg] PSYCHIATRY TEACHER-Cristina Bobo PSYCHIATRY TEACHER [facility] 06-08-2022 10:49-0500 Body temperature 97.6 [degF] PSYCHIATRY TEACHER-C Lara Bobo PSYCHIATRY TEACHER [facility] 06-08-2022 10:49-0500 Diastolic blood pressure 74 mm[Hg] PSYCHIATRY TEACHER-Cristina Bobo PSYCHIATRY TEACHER [facility] 06-08-2022 10:49-0500 Heart rate 107 /min PSYCHIATRY TEACHER-C Lara Bobo PSYCHIATRY TEACHER [facility] 06-08-2022 10:49-0500 Respiratory rate 16 /min PSYCHIATRY TEACHER-C Lara Bobo PSYCHIATRY TEACHER [facility] 06-08-2022 10:49-0500 Systolic blood pressure 118 mm[Hg] PSYCHIATRY TEACHER-C Lara Bobo PSYCHIATRY TEACHER [facility] 06-08-2022 09:49-0500 SaO2% (BldA) [Mass fraction] 100 % PSYCHIATRY TEACHER-Cristina Bobo PSYCHIATRY TEACHER [facility] 06-08-2022 09:07-0500 Body mass index (BMI) [Ratio] 25.2 kg/m2 PSYCHIATRY TEACHER-Cristina Bobo PSYCHIATRY TEACHER [facility] 06-08-2022 09:07-0500 Body weight 70.76 kg PSYCHIATRY TEACHER-Cristina Bobo PSYCHIATRY TEACHER [facility] 06-07-2022 08:46-0500 Body mass index (BMI) [Ratio] 25.4 kg/m2 PSYCHIATRY TEACHER-Cristina Bobo PSYCHIATRY TEACHER [facility] 06-07-2022 08:46-0500 Body temperature 97.5 [degF] PSYCHIATRY TEACHER-Cristina Bobo PSYCHIATRY TEACHER [facility] 06-07-2022 08:46-0500 Body weight 71.69 kg PSYCHIATRY TEACHER-Cristina Bobo PSYCHIATRY TEACHER [facility] 06-07-2022 08:46-0500 Diastolic blood pressure 82 mm[Hg] PSYCHIATRY TEACHER-Cristina Bobo PSYCHIATRY TEACHER [facility] 06-07-2022 08:46-0500 Heart rate 122 /min PSYCHIATRY TEACHER-Cristina Bobo PSYCHIATRY TEACHER [facility] 06-07-2022 08:46-0500 Respiratory rate 16 /min PSYCHIATRY TEACHER-Cristina Bobo PSYCHIATRY TEACHER [facility] 06-07-2022 08:46-0500 SaO2% (BldA) [Mass fraction] 100 % PSYCHIATRY TEACHER-Cristina Bobo PSYCHIATRY TEACHER [facility] 06-07-2022 08:46-0500 Systolic blood pressure 145 mm[Hg] PSYCHIATRY TEACHER-Cristina Bobo PSYCHIATRY TEACHER [facility] 05-31-2022 10:28-0500 Body height 167.64 cm PSYCHIATRY TEACHER-Cristina Bobo PSYCHIATRY TEACHER [facility] 05-31-2022 10:28-0500 Body mass index (BMI) [Ratio] 25.2 kg/m2 PSYCHIATRY TEACHER-Cristina Bobo PSYCHIATRY TEACHER [facility] 05-31-2022 10:28-0500 Body weight 70.81 kg PSYCHIATRY TEACHER-Cristina Lara Bobo PSYCHIATRY TEACHER [facility] 05-31-2022 10:28-0500 Heart rate 115 /min PSYCHIATRY TEACHER-C Lara Bobo PSYCHIATRY TEACHER [facility] 05-31-2022 08:55-0500 Body mass index (BMI) [Ratio] 25.2 kg/m2 PSYCHIATRY TEACHER-Cristina Lara Bobo PSYCHIATRY TEACHER [facility] 05-31-2022 08:55-0500 Body temperature 97.9 [degF] PSYCHIATRY TEACHER-C Lara Bobo PSYCHIATRY TEACHER [facility] 05-31-2022 08:55-0500 Body weight 70.81 kg PSYCHIATRY TEACHER-C Lara Bobo PSYCHIATRY TEACHER [facility] 05-31-2022 08:55-0500 Diastolic blood pressure 79 mm[Hg] PSYCHIATRY TEACHER-C Lara Bobo PSYCHIATRY TEACHER [facility] 05-31-2022 08:55-0500 Heart rate 118 /min PSYCHIATRY TEACHER-C Lara Bobo PSYCHIATRY TEACHER [facility] 05-31-2022 08:55-0500 Respiratory rate 16 /min PSYCHIATRY TEACHER-C Lara Bobo PSYCHIATRY TEACHER [facility] 05-31-2022 08:55-0500 SaO2% (BldA) [Mass fraction] 100 % PSYCHIATRY TEACHER-C Lara Bobo PSYCHIATRY TEACHER [facility] 05-31-2022 08:55-0500 Systolic blood pressure 119 mm[Hg] PSYCHIATRY TEACHER-C Lara Bobo PSYCHIATRY TEACHER [facility] 05-26-2022 12:07-0500 Body temperature 98.4 [degF] PSYCHIATRY TEACHER-C Lara Bobo PSYCHIATRY TEACHER [facility] 05-26-2022 12:07-0500 Diastolic blood pressure 67 mm[Hg] PSYCHIATRY TEACHER-C Lara Bobo PSYCHIATRY TEACHER [facility] 05-26-2022 12:07-0500 Heart rate 121 /min PSYCHIATRY TEACHER-C Lara Bobo PSYCHIATRY TEACHER [facility] 05-26-2022 12:07-0500 Respiratory rate 16 /min PSYCHIATRY TEACHER-C Lara Bobo PSYCHIATRY TEACHER [facility] 05-26-2022 12:07-0500 Systolic blood pressure 107 mm[Hg] PSYCHIATRY TEACHER-C Lara Bobo PSYCHIATRY TEACHER [facility] 05-25-2022 12:13-0500 SaO2% (BldA) [Mass fraction] 100 % PSYCHIATRY TEACHER-C Lara Bobo PSYCHIATRY TEACHER [facility] 05-24-2022 09:19-0500 Body mass index (BMI) [Ratio] 24.9 kg/m2 PSYCHIATRY TEACHER-Cristina Lara Bobo PSYCHIATRY TEACHER [facility] 05-24-2022 09:19-0500 Body weight 70.02 kg PSYCHIATRY TEACHER-Cristina Lara Bobo PSYCHIATRY TEACHER [facility] 05-24-2022 08:24-0500 Body mass index (BMI) [Ratio] 24.9 kg/m2 PSYCHIATRY TEACHER-Cristina Lara Bobo PSYCHIATRY TEACHER [facility] 05-24-2022 08:24-0500 Body temperature 97 [degF] PSYCHIATRY TEACHER-Cristina Lara Bobo PSYCHIATRY TEACHER [facility] 05-24-2022 08:24-0500 Body weight 70.02 kg PSYCHIATRY TEACHER-Cristina Bobo PSYCHIATRY TEACHER [facility] 05-24-2022 08:24-0500 Diastolic blood pressure 83 mm[Hg] PSYCHIATRY TEACHER-Cristina Bobo PSYCHIATRY TEACHER [facility] 05-24-2022 08:24-0500 Heart rate 119 /min PSYCHIATRY TEACHER-Cristina Bobo PSYCHIATRY TEACHER [facility] 05-24-2022 08:24-0500 Respiratory rate 18 /min PSYCHIATRY TEACHER-Cristina Bobo PSYCHIATRY TEACHER [facility] 05-24-2022 08:24-0500 SaO2% (BldA) [Mass fraction] 100 % PSYCHIATRY TEACHER-Cristina Lara Bobo PSYCHIATRY TEACHER [facility] 05-24-2022 08:24-0500 Systolic blood pressure 145 mm[Hg] PSYCHIATRY TEACHER-Cristina Bobo PSYCHIATRY TEACHER [facility] 05-16-2022 11:37-0500 Body mass index (BMI) [Ratio] 24.8 kg/m2 PSYCHIATRY TEACHER-Cristina Lara Bobo PSYCHIATRY TEACHER [facility] 05-16-2022 11:37-0500 Body temperature 98.1 [degF] PSYCHIATRY TEACHER-Cristina Bobo PSYCHIATRY TEACHER [facility] 05-16-2022 11:37-0500 Body weight 69.85 kg PSYCHIATRY TEACHER-Cristina Bobo PSYCHIATRY TEACHER [facility] 05-16-2022 11:37-0500 Diastolic blood pressure 84 mm[Hg] PSYCHIATRY TEACHER-Cristina Bobo PSYCHIATRY TEACHER [facility] 05-16-2022 11:37-0500 Heart rate 122 /min PSYCHIATRY TEACHER-Cristina Bobo [facility] 05-16-2022 11:37-0500 Respiratory rate 16 /min PSYCHIATRY TEACHER-Cristina Bobo PSYCHIATRY TEACHER [facility] 05-16-2022 11:37-0500 SaO2% (BldA) [Mass fraction] 100 % PSYCHIATRY TEACHER-Cristina Bobo PSYCHIATRY TEACHER [facility] 05-16-2022 11:37-0500 Systolic blood pressure 141 mm[Hg] PSYCHIATRY TEACHER-Cristina Bobo PSYCHIATRY TEACHER [facility] 05-10-2022 09:30-0500 Body mass index (BMI) [Ratio] 24.3 kg/m2 PSYCHIATRY TEACHER-Cristina Bobo PSYCHIATRY TEACHER [facility] 05-10-2022 09:30-0500 Body temperature 97 [degF] PSYCHIATRY TEACHER-Cristina Bobo PSYCHIATRY TEACHER [facility] 05-10-2022 09:30-0500 Body weight 68.2 kg PSYCHIATRY TEACHER-Cristina Bobo PSYCHIATRY TEACHER [facility] 05-10-2022 09:30-0500 Diastolic blood pressure 77 mm[Hg] PSYCHIATRY TEACHER-Cristina Bobo PSYCHIATRY TEACHER [facility] 05-10-2022 09:30-0500 Heart rate 119 /min PSYCHIATRY TEACHER-Cristina Bobo PSYCHIATRY TEACHER [facility] 05-10-2022 09:30-0500 Respiratory rate 16 /min PSYCHIATRY TEACHER-Cristina Bobo PSYCHIATRY TEACHER [facility] 05-10-2022 09:30-0500 SaO2% (BldA) [Mass fraction] 100 % PSYCHIATRY TEACHER-Cristina Bobo PSYCHIATRY TEACHER [facility] 05-10-2022 09:30-0500 Systolic blood pressure 146 mm[Hg] RUBY-Cristina Bobo PSYCHIATRY TEACHER [facility] 05-03-2022 09:49-0500 Body height 167.64 cm PSYCHIATRY TEACHER-Cristina Bobo PSYCHIATRY TEACHER [facility] 05-03-2022 09:49-0500 Body mass index (BMI) [Ratio] 24.7 kg/m2 RUBY-Cristina Bobo PSYCHIATRY TEACHER [facility] 05-03-2022 09:49-0500 Body weight 69.45 kg PSYCHIATRY TEACHER-Cristina Bobo PSYCHIATRY TEACHER [facility] 05-03-2022 09:04-0500 Body mass index (BMI) [Ratio] 24.7 kg/m2 RUBY-Cristina Bobo PSYCHIATRY TEACHER [facility] 05-03-2022 09:04-0500 Body temperature 97.4 [degF] PSYCHIATRY TEACHER-Cristina Lara Bobo PSYCHIATRY TEACHER [facility] 05-03-2022 09:04-0500 Body weight 69.45 kg PSYCHIATRY TEACHER-Cristina Lara Bobo PSYCHIATRY TEACHER [facility] 05-03-2022 09:04-0500 Diastolic blood pressure 76 mm[Hg] PSYCHIATRY TEACHER-Critsina Bobo PSYCHIATRY TEACHER [facility] 05-03-2022 09:04-0500 Heart rate 111 /min PSYCHIATRY TEACHER-Cristina Bobo PSYCHIATRY TEACHER [facility] 05-03-2022 09:04-0500 Respiratory rate 16 /min PSYCHIATRY TEACHER-Cristina Bobo PSYCHIATRY TEACHER [facility] 05-03-2022 09:04-0500 SaO2% (BldA) [Mass fraction] 100 % PSYCHIATRY TEACHER-Cristina Bobo PSYCHIATRY TEACHER [facility] 05-03-2022 09:04-0500 Systolic blood pressure 127 mm[Hg] PSYCHIATRY TEACHER-Cristina Bobo PSYCHIATRY TEACHER [facility] 04-26-2022 09:49-0500 Body mass index (BMI) [Ratio] 25.2 kg/m2 PSYCHIATRY TEACHER-Cristina Bobo PSYCHIATRY TEACHER [facility] 04-26-2022 09:49-0500 Body temperature 97.4 [degF] PSYCHIATRY TEACHER-Cristina Bobo PSYCHIATRY TEACHER [facility] 04-26-2022 09:49-0500 Body weight 70.81 kg PSYCHIATRY TEACHER-Cristina Bobo PSYCHIATRY TEACHER [facility] 04-26-2022 09:49-0500 Diastolic blood pressure 82 mm[Hg] PSYCHIATRY TEACHER-Cristina Bobo PSYCHIATRY TEACHER [facility] 04-26-2022 09:49-0500 Heart rate 117 /min PSYCHIATRY TEACHER-Cristina Bobo PSYCHIATRY TEACHER [facility] 04-26-2022 09:49-0500 Respiratory rate 16 /min PSYCHIATRY TEACHER-Cristina Bobo PSYCHIATRY TEACHER [facility] 04-26-2022 09:49-0500 SaO2% (BldA) [Mass fraction] 99 % PSYCHIATRY TEACHER-Cristnia Bobo PSYCHIATRY TEACHER [facility] 04-26-2022 09:49-0500 Systolic blood pressure 121 mm[Hg] PSYCHIATRY TEACHER-Cristina Bobo PSYCHIATRY TEACHER [facility] 04-26-2022 09:07-0500 Body mass index (BMI) [Ratio] 25.2 kg/m2 PSYCHIATRY TEACHER-Cristina Lara Bobo PSYCHIATRY TEACHER [facility] 04-26-2022 09:07-0500 Body temperature 97.4 [degF] PSYCHIATRY TEACHER-Cristina Lara Bobo PSYCHIATRY TEACHER [facility] 04-26-2022 09:07-0500 Body weight 70.81 kg PSYCHIATRY TEACHER-Cristina Lara Bobo PSYCHIATRY TEACHER [facility] 04-26-2022 09:07-0500 Diastolic blood pressure 82 mm[Hg] PSYCHIATRY TEACHER-Cristina Bobo PSYCHIATRY TEACHER [facility] 04-26-2022 09:07-0500 Heart rate 117 /min PSYCHIATRY TEACHER-Cristina Bobo PSYCHIATRY TEACHER [facility] 04-26-2022 09:07-0500 Respiratory rate 16 /min PSYCHIATRY TEACHER-Cristina Bobo PSYCHIATRY TEACHER [facility] 04-26-2022 09:07-0500 SaO2% (BldA) [Mass fraction] 99 % PSYCHIATRY TEACHER-Cristina Bobo PSYCHIATRY TEACHER [facility] 04-26-2022 09:07-0500 Systolic blood pressure 121 mm[Hg] PSYCHIATRY TEACHER-Cristina Bobo PSYCHIATRY TEACHER [facility] 04-21-2022 14:46-0500 Body mass index (BMI) [Ratio] 24.9 kg/m2 PSYCHIATRY TEACHER-Cristina Bobo PSYCHIATRY TEACHER [facility] 04-21-2022 14:46-0500 Body temperature 97 [degF] PSYCHIATRY TEACHER-Cristina Lara Bobo PSYCHIATRY TEACHER [facility] 04-21-2022 14:46-0500 Body weight 70.08 kg PSYCHIATRY TEACHER-Cristina Bobo PSYCHIATRY TEACHER [facility] 04-21-2022 14:46-0500 Diastolic blood pressure 83 mm[Hg] PSYCHIATRY TEACHER-Cristina Bobo PSYCHIATRY TEACHER [facility] 04-21-2022 14:46-0500 Heart rate 115 /min PSYCHIATRY TEACHER-Cristina Bobo PSYCHIATRY TEACHER [facility] 04-21-2022 14:46-0500 Respiratory rate 16 /min PSYCHIATRY TEACHER-Cristina Bobo PSYCHIATRY TEACHER [facility] 04-21-2022 14:46-0500 SaO2% (BldA) [Mass fraction] 100 % PSYCHIATRY TEACHER-Cristina Bobo PSYCHIATRY TEACHER [facility] 04-21-2022 14:46-0500 Systolic blood pressure 133 mm[Hg] PSYCHIATRY TEACHER-Cristina Bobo PSYCHIATRY TEACHER [facility] 04-19-2022 09:16-0500 Body mass index (BMI) [Ratio] 25.3 kg/m2 PSYCHIATRY TEACHER-Cristina Bermudez Joaquínandrey PSYCHIATRY TEACHER [facility] 04-19-2022 09:16-0500 Body temperature 97.4 [degF] PSYCHIATRY TEACHER-Cristina Bobo PSYCHIATRY TEACHER [facility] 04-19-2022 09:16-0500 Body weight 71.27 kg PSYCHIATRY TEACHER-Cristina Lara Bobo PSYCHIATRY TEACHER [facility] 04-19-2022 09:16-0500 Diastolic blood pressure 81 mm[Hg] PSYCHIATRY TEACHER-C Lara Bobo PSYCHIATRY TEACHER [facility] 04-19-2022 09:16-0500 Heart rate 119 /min PSYCHIATRY TEACHER-C Lara Bobo PSYCHIATRY TEACHER [facility] 04-19-2022 09:16-0500 Respiratory rate 16 /min PSYCHIATRY TEACHER-Cristina Lara Bobo PSYCHIATRY TEACHER [facility] 04-19-2022 09:16-0500 SaO2% (BldA) [Mass fraction] 100 % PSYCHIATRY TEACHER-Cristina Lara Bobo PSYCHIATRY TEACHER [facility] 04-19-2022 09:16-0500 Systolic blood pressure 129 mm[Hg] PSYCHIATRY TEACHER-Cristina Lara Jihan PSYCHIATRY TEACHER [facility] 04-19-2022 08:43-0500 Body mass index (BMI) [Ratio] 25.3 kg/m2 PSYCHIATRY TEACHER-Cristina Bermudez Jihan PSYCHIATRY TEACHER [facility] 04-19-2022 08:43-0500 Body temperature 97.4 [degF] PSYCHIATRY TEACHER-Cristina Bermudez Jihan PSYCHIATRY TEACHER [facility] 04-19-2022 08:43-0500 Body weight 71.27 kg PSYCHIATRY TEACHER-Cristina Lara Jihan PSYCHIATRY TEACHER [facility] 04-19-2022 08:43-0500 Diastolic blood pressure 81 mm[Hg] PSYCHIATRY TEACHER-Cristina Lara Bobo PSYCHIATRY TEACHER [facility] 04-19-2022 08:43-0500 Heart rate 117 /min PSYCHIATRY TEACHER-Cristina Lara Yanesandrey PSYCHIATRY TEACHER [facility] 04-19-2022 08:43-0500 Respiratory rate 16 /min PSYCHIATRY TEACHER-C Lara Jihan PSYCHIATRY TEACHER [facility] 04-19-2022 08:43-0500 SaO2% (BldA) [Mass fraction] 100 % PSYCHIATRY TEACHER-Cristina Lara Bobo PSYCHIATRY TEACHER [facility] 04-19-2022 08:43-0500 Systolic blood pressure 129 mm[Hg] RUBY-Cristina Bobo [facility] 04-14-2022 08:36-0500 Body mass index (BMI) [Ratio] 25.3 kg/m2 PSYCHIATRY TEACHER-Cristina Bobo [facility] 04-14-2022 08:36-0500 Body temperature 97.5 [degF] PSYCHIATRY TEACHER-Cristina Bobo PSYCHIATRY TEACHER [facility] 04-14-2022 08:36-0500 Body weight 71.21 kg PSYCHIATRY TEACHER-Cristina Bobo [facility] 04-14-2022 08:36-0500 Diastolic blood pressure 91 mm[Hg] PSYCHIATRY TEACHER-Cristina Bermudez Joaquínandrey [facility] 04-14-2022 08:36-0500 Heart rate 111 /min PSYCHIATRY TEACHER-Cristina Bobo [facility] 04-14-2022 08:36-0500 Respiratory rate 16 /min PSYCHIATRY TEACHER-Cristina Bermudez Joaquínandrey [facility] 04-14-2022 08:36-0500 SaO2% (BldA) [Mass fraction] 100 % PSYCHIATRY TEACHER-Cristina Bobo [facility] 04-14-2022 08:36-0500 Systolic blood pressure 137 mm[Hg] PSYCHIATRY TEACHER-Cristina Bobo [facility] 04-13-2022 16:25-0500 Heart rate 100 /min PSYCHIATRY TEACHER-Cristina Bobo [facility] 04-13-2022 15:20-0500 Body mass index (BMI) [Ratio] 25.5 kg/m2 PSYCHIATRY TEACHER-Cristina Bermudez Joaquínandrey PSYCHIATRY TEACHER [facility] 04-13-2022 15:20-0500 Body temperature 97 [degF] PSYCHIATRY TEACHER-Cristina Bobo PSYCHIATRY TEACHER [facility] 04-13-2022 15:20-0500 Body weight 71.83 kg PSYCHIATRY TEACHER-Cristina Bermudez Joaquínandrey [facility] 04-13-2022 15:20-0500 Diastolic blood pressure 83 mm[Hg] RUBY-Cristina Bobo [facility] 04-13-2022 15:20-0500 Respiratory rate 16 /min PSYCHIATRY TEACHER-Cristina Bermudez Joaquínandrey [facility] 04-13-2022 15:20-0500 SaO2% (BldA) [Mass fraction] 100 % PSYCHIATRY TEACHER-Cristina Bermudez Joaquínandrey PSYCHIATRY TEACHER [facility] 04-13-2022 15:20-0500 Systolic blood pressure 143 mm[Hg] PSYCHIATRY TEACHER-Cristina Bermudez Joaquínandrey PSYCHIATRY TEACHER [facility] 04-12-2022 14:16-0500 Body temperature 96.1 [degF] PSYCHIATRY TEACHER-C Lara Joaquínandrey PSYCHIATRY TEACHER [facility] 04-12-2022 14:16-0500 Diastolic blood pressure 82 mm[Hg] PSYCHIATRY TEACHER-C Lara Jihan PSYCHIATRY TEACHER [facility] 04-12-2022 14:16-0500 Heart rate 104 /min PSYCHIATRY TEACHER-C Lara Joaquínandrey PSYCHIATRY TEACHER [facility] 04-12-2022 14:16-0500 Respiratory rate 16 /min PSYCHIATRY TEACHER-C Lara Jihan PSYCHIATRY TEACHER [facility] 04-12-2022 14:16-0500 SaO2% (BldA) [Mass fraction] 100 % PSYCHIATRY TEACHER-C Lara Joaquínandrey PSYCHIATRY TEACHER [facility] 04-12-2022 14:16-0500 Systolic blood pressure 131 mm[Hg] PSYCHIATRY TEACHER-C Lara Jihan PSYCHIATRY TEACHER [facility] 04-07-2022 08:55-0500 Body mass index (BMI) [Ratio] 25.3 kg/m2 PSYCHIATRY TEACHER-Cristina Lara Jihan PSYCHIATRY TEACHER [facility] 04-07-2022 08:55-0500 Body temperature 97.4 [degF] PSYCHIATRY TEACHER-C Lara Joaquínandrey PSYCHIATRY TEACHER [facility] 04-07-2022 08:55-0500 Body weight 71.27 kg PSYCHIATRY TEACHER-Cristina Lara Jihan PSYCHIATRY TEACHER [facility] 04-07-2022 08:55-0500 Diastolic blood pressure 81 mm[Hg] PSYCHIATRY TEACHER-Cristina Lara Jihan PSYCHIATRY TEACHER [facility] 04-07-2022 08:55-0500 Heart rate 104 /min PSYCHIATRY TEACHER-C Lara Bobo PSYCHIATRY TEACHER [facility] 04-07-2022 08:55-0500 Respiratory rate 16 /min PSYCHIATRY TEACHER-C Lara Jihan PSYCHIATRY TEACHER [facility] 04-07-2022 08:55-0500 SaO2% (BldA) [Mass fraction] 100 % PSYCHIATRY TEACHER-C Lara Jihan PSYCHIATRY TEACHER [facility] 04-07-2022 08:55-0500 Systolic blood pressure 132 mm[Hg] PSYCHIATRY TEACHER-C Lara Bobo PSYCHIATRY TEACHER [facility] 04-06-2022 11:54-0500 Body temperature 97.1 [degF] PSYCHIATRY TEACHER-Cristina Bobo PSYCHIATRY TEACHER [facility] 04-06-2022 11:54-0500 Diastolic blood pressure 58 mm[Hg] PSYCHIATRY TEACHER-Cristina Bobo PSYCHIATRY TEACHER [facility] 04-06-2022 11:54-0500 Heart rate 108 /min PSYCHIATRY TEACHER-Cristina Bobo PSYCHIATRY TEACHER [facility] 04-06-2022 11:54-0500 Respiratory rate 16 /min PSYCHIATRY TEACHER-Cristina Bobo PSYCHIATRY TEACHER [facility] 04-06-2022 11:54-0500 SaO2% (BldA) [Mass fraction] 99 % PSYCHIATRY TEACHER-Cristina Bobo PSYCHIATRY TEACHER [facility] 04-06-2022 11:54-0500 Systolic blood pressure 108 mm[Hg] PSYCHIATRY TEACHER-Cristina Bobo [facility] 04-05-2022 14:29-0500 Body mass index (BMI) [Ratio] 25.6 kg/m2 PSYCHIATRY TEACHER-Cristina Bobo [facility] 04-05-2022 14:29-0500 Body temperature 97.8 [degF] PSYCHIATRY TEACHER-Cristina Bobo PSYCHIATRY TEACHER [facility] 04-05-2022 14:29-0500 Body weight 71.92 kg PSYCHIATRY TEACHER-Cristina Bobo PSYCHIATRY TEACHER [facility] 04-05-2022 14:29-0500 Diastolic blood pressure 74 mm[Hg] PSYCHIATRY TEACHER-Cristina Bobo PSYCHIATRY TEACHER [facility] 04-05-2022 14:29-0500 Heart rate 106 /min PSYCHIATRY TEACHER-Cristina Bobo PSYCHIATRY TEACHER [facility] 04-05-2022 14:29-0500 Respiratory rate 16 /min PSYCHIATRY TEACHER-Cristina Bobo PSYCHIATRY TEACHER [facility] 04-05-2022 14:29-0500 SaO2% (BldA) [Mass fraction] 98 % PSYCHIATRY TEACHER-Cristina Bobo [facility] 04-05-2022 14:29-0500 Systolic blood pressure 119 mm[Hg] PSYCHIATRY TEACHER-Cristina Bobo PSYCHIATRY TEACHER [facility] 04-05-2022 09:02-0500 Body mass index (BMI) [Ratio] 25 kg/m2 PSYCHIATRY TEACHER-Cristina Bobo PSYCHIATRY TEACHER [facility] 04-05-2022 09:02-0500 Body temperature 98.1 [degF] PSYCHIATRY TEACHER-Cristina Bobo PSYCHIATRY TEACHER [facility] 04-05-2022 09:02-0500 Body weight 70.47 kg PSYCHIATRY TEACHER-Cristina Bermudez Joaquínandrey PSYCHIATRY TEACHER [facility] 04-05-2022 09:02-0500 Diastolic blood pressure 77 mm[Hg] PSYCHIATRY TEACHER-Cristina Bermudez Joaquínandrey PSYCHIATRY TEACHER [facility] 04-05-2022 09:02-0500 Heart rate 108 /min PSYCHIATRY TEACHER-Cristina Bermudez Joaquínandrey PSYCHIATRY TEACHER [facility] 04-05-2022 09:02-0500 Respiratory rate 16 /min PSYCHIATRY TEACHER-Cristina Bobo PSYCHIATRY TEACHER [facility] 04-05-2022 09:02-0500 SaO2% (BldA) [Mass fraction] 98 % PSYCHIATRY TEACHER-Cristina Bermudez Joaquínandrey PSYCHIATRY TEACHER [facility] 04-05-2022 09:02-0500 Systolic blood pressure 109 mm[Hg] PSYCHIATRY TEACHER-Cristina Bermudez Jihan PSYCHIATRY TEACHER [facility] 03-30-2022 16:47-0500 Diastolic blood pressure 69 mm[Hg] PSYCHIATRY TEACHER-Cristina Bermudez Joaquínandrey PSYCHIATRY TEACHER [facility] 03-30-2022 16:47-0500 Heart rate 72 /min PSYCHIATRY TEACHER-Cristina Bermudez Joaquínandrey PSYCHIATRY TEACHER [facility] 03-30-2022 16:47-0500 Respiratory rate 16 /min PSYCHIATRY TEACHER-Cristina Bermudez Joaquínandrey PSYCHIATRY TEACHER [facility] 03-30-2022 16:47-0500 SaO2% (BldA) [Mass fraction] 98 % PSYCHIATRY TEACHER-Cristina Bermudez Joaquínandrey PSYCHIATRY TEACHER [facility] 03-30-2022 16:47-0500 Systolic blood pressure 117 mm[Hg] PSYCHIATRY TEACHER-Cristina Bermudez Joaquínandrey PSYCHIATRY TEACHER [facility] 03-30-2022 12:07-0500 Body height 167.64 cm PSYCHIATRY TEACHER-Cristina Bermudez Joaquínandrey [facility] Work Phone: 03-30-2022 12:07-0500 Body mass index (BMI) [Ratio] 26.6 kg/m2 PSYCHIATRY TEACHER-Cristina Bermudez Jihan PSYCHIATRY TEACHER [facility] 03-30-2022 12:07-0500 Body temperature 98.4 [degF] PSYCHIATRY TEACHER-Cristina Lara Jihan PSYCHIATRY TEACHER [facility] 03-30-2022 12:07-0500 Body weight 74.9 kg PSYCHIATRY TEACHER-C Lara Joaquínandrey PSYCHIATRY TEACHER [facility] 03-29-2022 09:31-0500 Body mass index (BMI) [Ratio] 25.4 kg/m2 PSYCHIATRY TEACHER-Cristina Bermudez Jihan PSYCHIATRY TEACHER [facility] 03-29-2022 09:31-0500 Body temperature 97.4 [degF] PSYCHIATRY TEACHER-Cirstina Bermudez Joaquínandrey PSYCHIATRY TEACHER [facility] 03-29-2022 09:31-0500 Body weight 71.38 kg PSYCHIATRY TEACHER-Cristina Lara Jihan PSYCHIATRY TEACHER [facility] 03-29-2022 09:31-0500 Diastolic blood pressure 95 mm[Hg] PSYCHIATRY TEACHER-C Lara Bobo PSYCHIATRY TEACHER [facility] 03-29-2022 09:31-0500 Heart rate 101 /min PSYCHIATRY TEACHER-C Lara Bobo PSYCHIATRY TEACHER [facility] 03-29-2022 09:31-0500 Respiratory rate 16 /min PSYCHIATRY TEACHER-C Lara Jihan PSYCHIATRY TEACHER [facility] 03-29-2022 09:31-0500 SaO2% (BldA) [Mass fraction] 100 % PSYCHIATRY TEACHER-Cristina Lara Jihan PSYCHIATRY TEACHER [facility] 03-29-2022 09:31-0500 Systolic blood pressure 124 mm[Hg] PSYCHIATRY TEACHER-C Lara Jihan PSYCHIATRY TEACHER [facility] 03-17-2022 13:34-0500 Body temperature 96.9 [degF] PSYCHIATRY TEACHER-C Lara Jihan PSYCHIATRY TEACHER [facility] Work Phone: 03-17-2022 13:34-0500 Diastolic blood pressure 79 mm[Hg] PSYCHIATRY TEACHER-Cristina Lara Bobo PSYCHIATRY TEACHER [facility] Work Phone: 03-17-2022 13:34-0500 Heart rate 94 /min PSYCHIATRY TEACHER-C Lara Bobo PSYCHIATRY TEACHER [facility] Work Phone: 03-17-2022 13:34-0500 Respiratory rate 16 /min PSYCHIATRY TEACHER-C Lara Jihan PSYCHIATRY TEACHER [facility] Work Phone: 03-17-2022 13:34-0500 SaO2% (BldA) [Mass fraction] 100 % PSYCHIATRY TEACHER-C Lara Bobo PSYCHIATRY TEACHER [facility] Work Phone: 03-17-2022 13:34-0500 Systolic blood pressure 123 mm[Hg] RUDY Bobo [facility] Work Phone: 03-17-2022 13:26-0500 Body mass index (BMI) [Ratio] 26.4 kg/m2 PSYCHIATRY TEACHER-Cristina Bobo [facility] Work Phone: 03-17-2022 13:26-0500 Body weight 74.47 kg RUDY Bobo [facility] Work Phone: 03-15-2022 11:34-0500 Body mass index (BMI) [Ratio] 26.2 kg/m2 PSYCHIATRY TEACHER-Cristina Bobo [facility] 03-15-2022 11:34-0500 Body temperature 98.1 [degF] RUBY-Cristina Bobo [facility] 03-15-2022 11:34-0500 Body weight 73.7 kg PSYCHIATRY TEACHERLisa Bermudez Joaquínandrey [facility] 03-15-2022 11:34-0500 Diastolic blood pressure 84 mm[Hg] RUBY-Cristina Bobo [facility] 03-15-2022 11:34-0500 Heart rate 95 /min -Cristina Bobo [facility] 03-15-2022 11:34-0500 Respiratory rate 16 /min PSYCHIATRY TEACHER-Cristina Bobo [facility] 03-15-2022 11:34-0500 SaO2% (BldA) [Mass fraction] 99 % PSYCHIATRY TEACHERLisa Bobo [facility] 03-15-2022 11:34-0500 Systolic blood pressure 114 mm[Hg] RUDY Bobo [facility] 03-15-2022 09:35-0500 Body mass index (BMI) [Ratio] 26.2 kg/m2 RUDY Bobo [facility] 03-15-2022 09:35-0500 Body temperature 98.1 [degF] RUDY Bobo [facility] 03-15-2022 09:35-0500 Body weight 73.7 kg PSYCHIATRY TEACHER-Cristina Bobo [facility] 03-15-2022 09:35-0500 Diastolic blood pressure 84 mm[Hg] PSYCHIATRY TEACHER-Cristina Bermudez Joaquínandrey PSYCHIATRY TEACHER [facility] 03-15-2022 09:35-0500 Heart rate 95 /min PSYCHIATRY TEACHER-Cristina Lara Joaquínandrey PSYCHIATRY TEACHER [facility] 03-15-2022 09:35-0500 Respiratory rate 16 /min PSYCHIATRY TEACHER-Cristina Bobo PSYCHIATRY TEACHER [facility] 03-15-2022 09:35-0500 SaO2% (BldA) [Mass fraction] 99 % PSYCHIATRY TEACHER-Cristina Lara Jihan PSYCHIATRY TEACHER [facility] 03-15-2022 09:35-0500 Systolic blood pressure 114 mm[Hg] PSYCHIATRY TEACHER-C Lara Jihan PSYCHIATRY TEACHER [facility] 03-03-2022 14:00-0500 Diastolic blood pressure 73 mm[Hg] PSYCHIATRY TEACHER-Cristina Lara Bobo PSYCHIATRY TEACHER [facility] 03-03-2022 14:00-0500 Heart rate 92 /min PSYCHIATRY TEACHER-C Lara Bobo PSYCHIATRY TEACHER [facility] 03-03-2022 14:00-0500 Respiratory rate 18 /min PSYCHIATRY TEACHER-Cristina Lara Jihan PSYCHIATRY TEACHER [facility] 03-03-2022 14:00-0500 SaO2% (BldA) [Mass fraction] 95 % PSYCHIATRY TEACHER-C Lara Jihan PSYCHIATRY TEACHER [facility] 03-03-2022 14:00-0500 Systolic blood pressure 99 mm[Hg] PSYCHIATRY TEACHER-Cristina Lara Jihan PSYCHIATRY TEACHER [facility] 03-03-2022 13:25-0500 Body temperature 97.5 [degF] PSYCHIATRY TEACHER-Cristina Lara Bobo PSYCHIATRY TEACHER [facility] 03-03-2022 11:28-0500 Body height 167.64 cm PSYCHIATRY TEACHER-Cristina Lara Bobo PSYCHIATRY TEACHER [facility] Work Phone: 03-03-2022 11:28-0500 Body mass index (BMI) [Ratio] 26.1 kg/m2 PSYCHIATRY TEACHER-Cristina Lara Bobo PSYCHIATRY TEACHER [facility] 03-03-2022 11:28-0500 Body weight 73.48 kg PSYCHIATRY TEACHER-Cristina Lara Bobo PSYCHIATRY TEACHER [facility] 03-02-2022 14:56-0500 Body temperature 97.3 [degF] PSYCHIATRY TEACHER-Cristina Lara Bobo PSYCHIATRY TEACHER [facility] 03-02-2022 14:56-0500 Body weight 74.61 kg PSYCHIATRY TEACHER-C Lara Bobo PSYCHIATRY TEACHER [facility] 03-02-2022 14:56-0500 Diastolic blood pressure 81 mm[Hg] PSYCHIATRY TEACHER-Cristina Bobo PSYCHIATRY TEACHER [facility] 03-02-2022 14:56-0500 Heart rate 93 /min PSYCHIATRY TEACHER-C Lara Bobo PSYCHIATRY TEACHER [facility] 03-02-2022 14:56-0500 Respiratory rate 17 /min PSYCHIATRY TEACHER-Cristina Bobo PSYCHIATRY TEACHER [facility] 03-02-2022 14:56-0500 SaO2% (BldA) [Mass fraction] 99 % PSYCHIATRY TEACHER-Cristina Bobo [facility] 03-02-2022 14:56-0500 Systolic blood pressure 122 mm[Hg] PSYCHIATRY TEACHER-C Lara Bobo [facility] 03-02-2022 10:16-0500 Body height 167.64 cm PSYCHIATRY TEACHER-C Lara Bobo [facility] Work Phone: 03-02-2022 10:13-0500 Body mass index (BMI) [Ratio] 26.5 kg/m2 PSYCHIATRY TEACHER-Cristina Bobo [facility] 03-02-2022 10:13-0500 Body temperature 97.2 [degF] PSYCHIATRY TEACHER-Cristina Bobo [facility] 03-02-2022 10:13-0500 Body weight 74.61 kg PSYCHIATRY TEACHER-Cristina Bobo [facility] 03-02-2022 10:13-0500 Diastolic blood pressure 86 mm[Hg] PSYCHIATRY TEACHER-Cristina Bobo PSYCHIATRY TEACHER [facility] 03-02-2022 10:13-0500 Heart rate 95 /min PSYCHIATRY TEACHER-Cristina Bobo [facility] 03-02-2022 10:13-0500 Respiratory rate 16 /min PSYCHIATRY TEACHER-Cristina Bobo PSYCHIATRY TEACHER [facility] 03-02-2022 10:13-0500 SaO2% (BldA) [Mass fraction] 98 % PSYCHIATRY TEACHER-Cristina Bobo [facility] 03-02-2022 10:13-0500 Systolic blood pressure 122 mm[Hg] PSYCHIATRY TEACHER-Cristina Bobo [facility] 02-28-2022 10:07-0500 Body mass index (BMI) [Ratio] 26.4 kg/m2 PSYCHIATRY TEACHER-C Lara Bobo PSYCHIATRY TEACHER [facility] 02-28-2022 10:07-0500 Body temperature 98 [degF] PSYCHIATRY TEACHER-Cristina Bobo PSYCHIATRY TEACHER [facility] 02-28-2022 10:07-0500 Body weight 74.16 kg PSYCHIATRY TEACHER-Cristina Bobo PSYCHIATRY TEACHER [facility] 02-28-2022 10:07-0500 Diastolic blood pressure 75 mm[Hg] PSYCHIATRY TEACHER-Cristina Bobo PSYCHIATRY TEACHER [facility] 02-28-2022 10:07-0500 Heart rate 102 /min PSYCHIATRY TEACHER-Cristina Bobo PSYCHIATRY TEACHER [facility] 02-28-2022 10:07-0500 Respiratory rate 16 /min PSYCHIATRY TEACHER-Cristina Bobo PSYCHIATRY TEACHER [facility] 02-28-2022 10:07-0500 SaO2% (BldA) [Mass fraction] 98 % PSYCHIATRY TEACHER-Cristina Bobo [facility] 02-28-2022 10:07-0500 Systolic blood pressure 120 mm[Hg] RUBY-Cristina Bobo [facility] 02-17-2022 11:29-0400 Body height 167.64 cm PSYCHIATRY TEACHER-Cristina Bobo [facility] Work Phone: 02-17-2022 11:29-0400 Body weight 72.57 kg PSYCHIATRY TEACHERLisa Bobo [facility] 02-17-2022 11:29-0400 Heart rate 110 /min PSYCHIATRY TEACHER-Cristina Bobo [facility] 02-17-2022 11:29-0400 Inhaled oxygen concentration 21 % RUDY Bobo [facility] 02-17-2022 11:29-0400 SaO2% (BldA) [Mass fraction] 98 % PSYCHIATRY TEACHER-Cristina Bobo [facility] 02-16-2022 08:12-0400 Body mass index (BMI) [Ratio] 26.3 kg/m2 PSYCHIATRY TEACHER-Cristina Bobo [facility] 02-16-2022 08:12-0400 Body temperature 98.2 [degF] RUBY-Cristina Bobo PSYCHIATRY TEACHER [facility] 02-16-2022 08:12-0400 Body weight 73.99 kg PSYCHIATRY TEACHER-Cristina Bobo [facility] 02-16-2022 08:12-0400 Diastolic blood pressure 82 mm[Hg] PSYCHIATRY TEACHER-Cristina Bobo PSYCHIATRY TEACHER [facility] 02-16-2022 08:12-0400 Heart rate 101 /min PSYCHIATRY TEACHER-C Lara Bobo PSYCHIATRY TEACHER [facility] 02-16-2022 08:12-0400 Respiratory rate 16 /min PSYCHIATRY TEACHER-Cristina Bobo PSYCHIATRY TEACHER [facility] 02-16-2022 08:12-0400 SaO2% (BldA) [Mass fraction] 98 % PSYCHIATRY TEACHER-Cristina Bobo [facility] 02-16-2022 08:12-0400 Systolic blood pressure 133 mm[Hg] PSYCHIATRY TEACHER-Cristina Bobo [facility] 02-11-2022 14:34-0400 Body temperature 98.1 [degF] PSYCHIATRY TEACHER-Cristina Bobo [facility] 02-11-2022 14:34-0400 Diastolic blood pressure 75 mm[Hg] PSYCHIATRY TEACHER-Cristina Bobo [facility] 02-11-2022 14:34-0400 Heart rate 86 /min PSYCHIATRY TEACHER-Cristina Bobo [facility] 02-11-2022 14:34-0400 Respiratory rate 16 /min PSYCHIATRY TEACHER-Cristina Bobo [facility] 02-11-2022 14:34-0400 SaO2% (BldA) [Mass fraction] 98 % PSYCHIATRY TEACHER-Cristina Bobo [facility] 02-11-2022 14:34-0400 Systolic blood pressure 116 mm[Hg] PSYCHIATRY TEACHER-Cristina Bobo [facility] 02-11-2022 12:22-0400 Body height 167.64 cm PSYCHIATRY TEACHER-Cristina Bobo [facility] Work Phone: 02-11-2022 12:22-0400 Body mass index (BMI) [Ratio] 25.8 kg/m2 PSYCHIATRY TEACHER-Cristina Bobo [facility] 02-11-2022 12:22-0400 Body weight 72.6 kg PSYCHIATRY TEACHER-Cristina Boob [facility] 02-02-2022 10:22-0400 Body mass index (BMI) [Ratio] 26.2 kg/m2 PSYCHIATRY TEACHER-Cristina Bobo [facility] 02-02-2022 10:22-0400 Body temperature 97.7 [degF] PSYCHIATRY TEACHER-Cristina Bobo PSYCHIATRY TEACHER [facility] 02-02-2022 10:22-0400 Body weight 73.59 kg PSYCHIATRY TEACHER-Cristina Bobo PSYCHIATRY TEACHER [facility] 02-02-2022 10:22-0400 Diastolic blood pressure 86 mm[Hg] PSYCHIATRY TEACHER-Cristina Bobo PSYCHIATRY TEACHER [facility] 02-02-2022 10:22-0400 Heart rate 94 /min PSYCHIATRY TEACHER-Cristina Bobo PSYCHIATRY TEACHER [facility] 02-02-2022 10:22-0400 Respiratory rate 18 /min PSYCHIATRY TEACHER-Cristina Bobo PSYCHIATRY TEACHER [facility] 02-02-2022 10:22-0400 SaO2% (BldA) [Mass fraction] 99 % PSYCHIATRY TEACHER-Cristina Bobo PSYCHIATRY TEACHER [facility] 02-02-2022 10:22-0400 Systolic blood pressure 135 mm[Hg] PSYCHIATRY TEACHER-Cristina Bobo PSYCHIATRY TEACHER [facility] 01-31-2022 00:41-0400 Diastolic blood pressure 72 mm[Hg] PSYCHIATRY TEACHER-Cristina Bobo PSYCHIATRY TEACHER [facility] 01-31-2022 00:41-0400 Heart rate 89 /min PSYCHIATRY TEACHER-Cristina Bobo PSYCHIATRY TEACHER [facility] 01-31-2022 00:41-0400 Respiratory rate 16 /min PSYCHIATRY TEACHER-Cristina Bobo PSYCHIATRY TEACHER [facility] 01-31-2022 00:41-0400 SaO2% (BldA) [Mass fraction] 96 % PSYCHIATRY TEACHER-Cristina Bobo [facility] 01-31-2022 00:41-0400 Systolic blood pressure 113 mm[Hg] PSYCHIATRY TEACHER-Cristina Bobo PSYCHIATRY TEACHER [facility] 01-30-2022 21:19-0400 Body mass index (BMI) [Ratio] 25.8 kg/m2 PSYCHIATRY TEACHER-Cristina Bobo [facility] 01-30-2022 21:19-0400 Body temperature 97.8 [degF] PSYCHIATRY TEACHER-Cristina Bobo PSYCHIATRY TEACHER [facility] 01-30-2022 21:19-0400 Body weight 72.57 kg PSYCHIATRY TEACHER-C Lara Bobo [facility] Encounters Encounter Date Encounter Type Care Provider Facility Start: 03-11-2025 ambulatory [facility] ty:[facility] Start: 02-18-2025 End: 02-18-2025 ambulatory Chalmelanie Celeste Facility:[facility] Start: 01-28-2025 End: 01-28-2025 ambulatory Michealace Jeimy Facility:[facility] Start: 01-28-[address] Ashley Munson MD -[facility] Start: 01-23-2025 End: 01-23-[address] Aly Gupta DO -[facility] Work Phone: Start: 01-23-2025 End: 01-23-2025 ambulatory Lynda Alonso MD Work Phone: -[facility] Start: 01-20-[address] Aly Gupta DO [facility] Work Phone: Start: 01-20-2025 End: 01-20-2025 ambulatory Lynda Celeste Facility:[facility] Start: 01-10-2025 End: 01-10-[address] Gabriele Guerrero MD -[facility] Work Phone: Start: 01-10-2025 End: 01-10-2025 ambulatory Lynda Alonso MD Work Phone: -[facility] Start: 01-07-[address] Ashley Munson MD -[facility] Start: 01-07-2025 End: 01-07-2025 Patient encounter procedure Shavonne GRANT -[facility] Work Phone: Start: 01-07-2025 End: 01-07-2025 ambulatory Lynda Alonso MD Work Phone: -[facility] Start: 12-17-2024 End: 12-17-2024 Patient encounter procedure Shavonne GRANT -[facility] Work Phone: Start: 12-17-2024 End: 12-17-2024 ambulatory Lynda Alonso MD Work Phone: [facility] Start: 12-17-[address] Ashley Munson MD -[facility] Start: 12-05-[address] Ashley Munson MD -[facility] Start: 12-03-2024 End: 12-03-2024 ambulatory Lynda Alonso MD Work Phone: [facility] Start: 12-03-2024 End: 12-03-[address] Aly Gupta DO -[facility] Work Phone: Start: 12-03-2024 End: 12-03-2024 ambulatory Chalon Celeste Facility:[facility] Start: 11-26-2024 End: 11-26-[address] Chadwick Munson MD -[facility] Work Phone: Start: 11-26-2024 End: 11-26-2024 ambulatory Chalon Celeste Facility:[facility] Start: 11-26-[address] Ashley Munson MD -[facility] Start: 11-05-[address] Ashley Munson MD -[facility] Start: 11-05-2024 End: 11-05-2024 Patient encounter procedure Shavonne GRANT -[facility] Work Phone: Start: 11-05-2024 End: 11-05-2024 ambulatory Lynda Alonso MD Work Phone: -[facility] Start: 10-16-2024 End: 10-16-2024 Patient encounter procedure Dr. Chadwick Munson MD -[facility] Work Phone: Start: 10-16-2024 End: 10-16-2024 ambulatory Lynda Alonso MD Work Phone: -[facility] Start: 10-10-2024 ambulatory [facility] Facilit y:[facility] Start: 10-10-[address] Ashley Munson MD -[facility] Start: 10-08-2024 End: 10-08-2024 Patient encounter procedure Shavonne GRANT -[facility] Work Phone: Start: 10-08-2024 End: 10-08-2024 ambulatory Lynda Alonso MD Work Phone: [facility] Work Phone: Start: 10-08-[address] Ashley Munson MD -[facility] Start: 10-04-2024 End: 10-04-[address] Sugar Ramírez MD -[facility] Work Phone: Start: 10-04-2024 End: 10-04-2024 ambulatory Lynda Alonso MD Work Phone: [facility] Work Phone: Start: 10-02-2024 Non-patient / Non-visit Dr. Domingo Ramírez MD -[facility] Start: 10-02-2024 End: 10-02-2024 Admission to same day surgery center Dr. Sugar Ramírez MD -[facility] Start: 10-02-2024 End: 10-02-2024 ambulatory Lynda Alonso MD Work Phone: [facility] Work Phone: Start: 09-30-2024 End: 09-30-2024 Patient encounter procedure Shavonne Blanchard NP- -[facility] Work Phone: Start: 09-30-2024 End: 09-30-2024 ambulatory Lynda Alonso MD Work Phone: [facility] [employer] [facility] Work Phone: Start: 09-27-2024 End: 09-27-[address] Sugar Ramírez MD -[facility] Work Phone: Start: 09-27-2024 End: 09-27-2024 ambulatory Lynda Alonso MD Work Phone: [facility] Work Phone: Start: 09-24-2024 End: 09-24-[address] Chadwick Munson MD -[facility] Work Phone: Start: 09-24-2024 End: 09-24-2024 ambulatory Lynda Alonso MD Work Phone: [facility] [employer] [facility] Work Phone: Start: 09-17-[address] Ashley Munson MD -[facility] Start: 09-11-2024 End: 09-11-2024 ambulatory Lynda Alonso MD Work Phone: [facility] Work Phone: Start: 09-11-2024 End: 09-11-[address] Chadwick Munson MD -[facility] Work Phone: Start: 09-11-2024 End: 09-11-2024 ambulatory Lynda Alonso Facility:[facility] Start: 09-03-2024 End: 09-03-2024 ambulatory Lynda Alonso MD Work Phone: [facility] Work Phone: Start: 09-03-2024 End: 09-03-[address] Chadwick Munson MD -[facility] Work Phone: Start: 09-03-2024 End: 09-03-2024 ambulatory Chadwick Munson Facility:[facility] Start: 08-29-2024 End: 08-29-[address] Chadwick Munson MD -[facility] Work Phone: Start: 08-29-2024 End: 08-29-2024 ambulatory Lynda Alonso MD Work Phone: [facility] Work Phone: Start: 08-28-2024 End: 08-28-2024 Patient encounter procedure Gaye GRANT -[facility] Work Phone: Start: 08-28-2024 End: 08-28-2024 ambulatory Lynda Alonso MD Work Phone: [facility] Work Phone: Start: 08-26-2024 End: 08-26-2024 ambulatory Lynda Alonso MD Work Phone: [facility] Work Phone: Start: 08-26-2024 End: 08-26-[address] Chadwick Munson MD -[facility] Work Phone: Start: 08-26-2024 End: 08-26-2024 ambulatory Chadwick Munson Facility:[facility] Start: 07-30-2024 ambulatory Aly Candy Facility: [facility] Start: 07-25-[address] [facility] Facility: [facility] Start: 06-28-2024 Non-patient / Non-visit Dr. Corey wilson DO -[facility] Start: 06-28-2024 ambulatory Lynda Alonso Facility:[facility] Start: 06-24-2024 End: 06-24-2024 ambulatory Lynda Alonso MD Work Phone: [facility] Work Phone: Start: 06-24-2024 End: 06-24-[address] Aly Gupta DO -[facility] Work Phone: Start: 06-24-2024 End: 06-24-2024 ambulatory Lynda Alonso Facility:[facility] Start: 06-21-2024 End: 06-21-2024 ambulatory Lynda Alonso MD Work Phone: [facility] Work Phone: Start: 06-21-2024 End: 06-21-[address] Aly Gupta DO -[facility] Work Phone: Start: 06-21-2024 End: 06-21-2024 ambulatory Lynda Alonso Facility:[facility] Start: 06-19-2024 End: 06-19-[address] Chadwick Munson MD -[facility] Work Phone: Start: 06-19-2024 End: 06-19-2024 ambulatory Chalon Celeste Facility:[facility] Start: 06-18-2024 ambulatory Gaye López PSYCHIATRY TEACHER Fac ility:[facility] Start: 06-18-2024 Non-patient / Non-visit Dr. Corey wilson DO -[facility] Start: 06-18-2024 End: 06-18-2024 ambulatory Lynda Alonso MD Work Phone: [facility] Work Phone: Start: 06-18-2024 End: 06-18-[address] Chadwick Munson MD -Cat Scan, [facility] Work Phone: Start: 06-18-2024 End: 06-18-2024 ambulatory Chadwick Munson Facility:[facility] Start: 05-21-2024 End: 05-21-2024 ambulatory Lynda Alonso Facility:[facility] Start: 05-21-2024 End: 05-21-[address] Blu Mejia MD -[facility] Work Phone: Start: 05-21-2024 End: 05-21-2024 ambulatory Lynda Alonso Facility:[facility] Start: 05-16-2024 End: 05-16-[address] Sarabjit Perdomo MD -[facility] Work Phone: Start: 05-16-2024 End: 05-16-2024 ambulatory Sarajbit Perdomo Facility:[facility] Start: 05-09-2024 End: 05-09-2024 Patient encounter procedure Camilla NAVA -[facility] Work Phone: Start: 05-09-2024 End: 05-09-2024 ambulatory Camilla Madden Facility:[facility] Start: 05-02-2024 End: 05-02-2024 Patient encounter procedure Camilla NAVA -[facility] Work Phone: Start: 05-02-2024 End: 05-02-2024 ambulatory Camilla Madden Facility:[facility] Start: 04-30-2024 End: 04-30-2024 Emergency department patient visit Dr. Cesar Barbour DO -Emergency Department Work Phone: Start: 04-29-2024 End: 04-29-2024 Emergency department patient visit Dr. Blas Chi DO -Emergency Department Work Phone: Start: 04-28-2024 End: 04-28-2024 Emergency department patient visit ED PHYSICIAN PROVIDER -Emergency Department Work Phone: Start: 04-25-2024 End: 04-25-2024 Patient encounter procedure Trish Wolff NP-Cristina -Laboratory, [place] Work Phone: Start: 04-25-2024 End: 04-25-2024 ambulatory Lynda Celeste Facility:[facility] Start: 04-24-2024 End: 04-24-[address] Sarabjit Perdomo MD -Radiology, [place] Work Phone: Start: 04-24-2024 End: 04-24-2024 ambulatory Sarabjit Perdomo Facility:[facility] Start: 04-18-2024 End: 04-18-2024 Patient encounter procedure Camilla NAVA -[facility] Work Phone: Start: 04-18-2024 End: 04-18-2024 ambulatory Camilla Madden Facility:[facility] Start: 04-16-2024 Encounter for [facility]procedural laboratory [facility] Start: 04-15-2024 End: 04-15-2024 ambulatory Lynda Alonso MD Work Phone: [facility] Work Phone: Start: 04-15-2024 End: 04-15-[address] Lynda Alonso MD -Physical Therapy Work Phone: Start: 04-15-[address] Lynda Alonso MD -Physical Therapy Work Phone: Start: 03-22-2024 End: 03-22-[address] [facility] Start: 03-22-2024 End: 03-22-2024 ambulatory Lynda Alonso Facility:[facility] Start: 03-11-[address] Ashley Munson MD -[facility] Start: 03-11-2024 End: 03-11-[address] Chadwick Munson MD -[facility] Work Phone: Start: 03-11-2024 End: 03-11-2024 ambulatory Chadwick Munson Facility:[facility] Start: 03-07-2024 End: 03-07-[address] Chadwick Munson MD -Nuclear Medicine, [facility] Work Phone: Start: 03-07-2024 End: 03-07-2024 ambulatory Chalon Celeste Facility:[facility] Start: 03-05-2024 Non-patient / Non-visit Lorena gamez NP-C -[facility] Work Phone: Start: 03-05-2024 ambulatory Chalon Celeste Facility:[facility] Start: 03-04-2024 ambulatory Chalon Celeste Facility:[facility] Start: 03-04-2024 Non-patient / Non-visit Dr. Radha MCGARRY -[facility] Start: 03-04-2024 End: 03-04-[address] Gabriele Guerrero MD -Cat Scan, [facility] Work Phone: Start: 03-04-2024 End: 03-04-2024 ambulatory Chalon Celeste Facility:[facility] Start: 2023 End: 2023 ambulatory DO Marce Jack Work Phone: [facility] Work Phone: Start: 2023 End: 2023 Patient encounter procedure RUDY Bobo PSYCHIATRY TEACHER [facility] Work Phone: Start: 08-03-2023 End: 08-03-2023 ambulatory RUDY Bobo PSYCHIATRY TEACHER [facility] Work Phone: Start: 08-03-2023 End: 08-03-2023 Patient encounter procedure RUDY Bobo NP [facility]-MRI - [facility] Work Phone: Start: 07-24-2023 Non-patient / Non-visit PSYCHIATRY TEACHER-Cristina Bobo PSYCHIATRY TEACHER [facility] Start: 07-24-2023 End: 07-24-2023 ambulatory PSYCHIATRY TEACHER-Cristina Bobo PSYCHIATRY TEACHER [facility] Work Phone: Start: 07-24-2023 End: 07-24-2023 Patient encounter procedure PSYCHIATRY TEACHER-Cristina Bobo PSYCHIATRY TEACHER [facility]-Cardiovascula r Services Work Phone: Start: 07-04-2023 End: 07-04-2023 ambulatory DO Marce Jack Work Phone: [facility] Work Phone: Start: 07-04-2023 End: 07-04-2023 Patient encounter procedure DO Marce Jack Work Phone: [facility] Work Phone: Start: 06-21-2023 End: 06-21-2023 ambulatory DO Marce Jack Work Phone: [facility] Work Phone: Start: 06-21-2023 End: 06-21-2023 Patient encounter procedure DO Marce Jack Work Phone: [facility]-Outpatient Breast Imaging Work Phone: Start: 06-16-2023 End: 06-16-2023 Patient encounter procedure DO Marce Jack Work Phone: [facility] Work Phone: Start: 06-01-2023 Non-patient / Non-visit DO Veronica Jack Work Phone: [facility] Work Phone: Start: 05-11-2023 Registered Recurring DO Kassie Jack Work Phone: [facility] Start: 05-11-2023 End: 05-11-2023 Patient encounter procedure DO Marce Jack Work Phone: [facility] Work Phone: Start: 04-14-2023 End: 04-14-2023 Patient encounter procedure DO Marce Jack Work Phone: [facility] Work Phone: Start: 03-24-2023 End: 03-24-2023 Patient encounter procedure PSYCHIATRY TEACHER-Cristina Bobo NP [facility] Work Phone: Start: 03-21-2023 End: 03-21-2023 ambulatory PSYCHIATRY TEACHER-Cristina Bobo PSYCHIATRY TEACHER [facility] Work Phone: Start: 03-21-2023 End: 03-21-2023 Patient encounter procedure RUDY Bobo NP [facility] - [facility] Work Phone: Start: 03-20-2023 End: 03-20-2023 ambulatory PSYCHIATRY TEACHER-Cristina Bobo PSYCHIATRY TEACHER [facility] Work Phone: Start: 03-20-2023 End: 03-20-2023 Patient encounter procedure RUBY-Cristina Bobo NP [facility] Start: 03-03-2023 Registered Recurring RUDY Bobo NP [facility] Start: 02-15-2023 End: 02-15-2023 Patient encounter procedure RUDY Bobo NP [facility]-Pulmonary Medicine [facility] Work Phone: Start: 02-09-2023 End: 02-09-2023 Patient encounter procedure PSYCHIATRY TEACHERLisa Bobo NP [facility] Work Phone: Start: 02-02-2023 End: 02-02-2023 ambulatory PSYCHIATRY TEACHER-Cristina Bobo NP [facility] Work Phone: Start: 02-02-2023 End: 02-02-2023 Patient encounter procedure PSYCHIATRY TEACHER-Cristina Bobo PSYCHIATRY TEACHER [facility]-Cat Scan, [facility] Work Phone: Start: 02-02-2023 Registered Recurring PSYCHIATRY TEACHER-Cristina Bobo PSYCHIATRY TEACHER [facility] Start: 01-26-2023 End: 01-26-2023 ambulatory PSYCHIATRY TEACHER-Cristina Bobo PSYCHIATRY TEACHER [facility] Work Phone: Start: 01-26-2023 End: 01-26-2023 Patient encounter procedure PSYCHIATRY TEACHER-Cristina Bobo PSYCHIATRY TEACHER [facility]-Radiology, [place] Work Phone: Start: 01-05-2023 Registered Recurring PSYCHIATRY TEACHER-Cristina Bobo PSYCHIATRY TEACHER [facility] Start: 12-09-2022 End: 12-09-2022 Patient encounter procedure PSYCHIATRY TEACHER-Cristina Bobo PSYCHIATRY TEACHER [facility] Work Phone: Start: 12-02-2022 End: 12-02-2022 ambulatory PSYCHIATRY TEACHER-C Lara Bobo PSYCHIATRY TEACHER [facility] Work Phone: Start: 12-02-2022 End: 12-02-2022 Patient encounter procedure PSYCHIATRY TEACHER-Cristina Bobo PSYCHIATRY TEACHER [facility]-MRI - [facility] Work Phone: Start: 11-29-2022 Non-patient / Non-visit PSYCHIATRY TEACHER-Cristina Bobo NP [facility] Start: 11-28-2022 End: 11-28-2022 ambulatory PSYCHIATRY TEACHER-Cristina Bobo PSYCHIATRY TEACHER [facility] Work Phone: Start: 11-28-2022 End: 11-28-2022 Patient encounter procedure PSYCHIATRY TEACHER-Cristina Bobo PSYCHIATRY TEACHER [facility]-Pulmonary Services/Neurology Work Phone: Start: 11-10-2022 Non-patient / Non-visit PSYCHIATRY TEACHER-Cristina Bobo PSYCHIATRY TEACHER [facility] Work Phone: Start: 11-10-2022 Registered Recurring PSYCHIATRY TEACHER-Cristina Bobo PSYCHIATRY TEACHER [facility] Start: 11-10-2022 End: 11-10-2022 Patient encounter procedure PSYCHIATRY TEACHER-Cristina Bobo NP [facility] Work Phone: Start: 11-10-2022 Non-patient / Non-visit PSYCHIATRY TEACHER-Cristina Bobo PSYCHIATRY TEACHER [facility] Start: 11-10-2022 End: 11-10-2022 ambulatory PSYCHIATRY TEACHER-Cristina Bobo PSYCHIATRY TEACHER [facility] Work Phone: Start: 11-10-2022 End: 11-10-2022 Patient encounter procedure PSYCHIATRY TEACHER-Cristina Bobo PSYCHIATRY TEACHER [facility]-Cardiovascula r Services Work Phone: Start: 10-28-2022 End: 10-28-2022 Patient encounter procedure PSYCHIATRY TEACHER-Cristina Bobo PSYCHIATRY TEACHER [facility] Work Phone: Start: 09-27-2022 End: 09-27-2022 Patient encounter procedure PSYCHIATRY TEACHER-Cristina Bobo PSYCHIATRY TEACHER [facility] Work Phone: Start: 09-20-2022 Non-patient / Non-visit PSYCHIATRY TEACHER-Cristina Bobo PSYCHIATRY TEACHER [facility] Work Phone: Start: 09-09-2022 End: 09-09-2022 Patient encounter procedure PSYCHIATRY TEACHER-Cristina Bobo NP [facility] Start: 09-02-2022 End: 09-02-2022 ambulatory PSYCHIATRY TEACHER-Cristina Bobo PSYCHIATRY TEACHER [facility] Work Phone: Start: 09-02-2022 End: 09-02-2022 Patient encounter procedure PSYCHIATRY TEACHER-Cristina Bobo PSYCHIATRY TEACHER [facility] Start: 08-01-2022 Registered Recurring PSYCHIATRY TEACHER-Cristina Bobo PSYCHIATRY TEACHER [facility] Start: 08-01-2022 End: 08-01-2022 Patient encounter procedure PSYCHIATRY TEACHER-Cristina Bobo PSYCHIATRY TEACHER [facility] Start: 07-29-2022 End: 07-29-2022 Discharged Recurring PSYCHIATRY TEACHER-Cristina Bobo PSYCHIATRY TEACHER [facility]-Physical Therapy Start: 06-30-2022 End: 06-30-2022 Patient encounter procedure PSYCHIATRY TEACHER-Cristina Bobo PSYCHIATRY TEACHER [facility] Start: 06-27-2022 End: 06-27-2022 Patient encounter procedure PSYCHIATRY TEACHER-Cristina Bobo PSYCHIATRY TEACHER [facility] Start: 06-15-2022 End: 06-15-2022 Patient encounter procedure PSYCHIATRY TEACHER-Cristina Bobo PSYCHIATRY TEACHER [facility] Start: 06-07-2022 End: 06-07-2022 Patient encounter procedure PSYCHIATRY TEACHER-Cristina Bobo PSYCHIATRY TEACHER [facility] Start: 05-31-2022 End: 05-31-2022 Patient encounter procedure PSYCHIATRY TEACHER-Cristina Bobo PSYCHIATRY TEACHER [facility] Start: 05-31-2022 Registered Recurring PSYCHIATRY TEACHER-Cristina Bobo PSYCHIATRY TEACHER [facility] Start: 05-31-2022 End: 05-31-2022 Patient encounter procedure PSYCHIATRY TEACHER-Cristina Bobo PSYCHIATRY TEACHER [facility] Start: 05-25-2022 End: 05-25-2022 ambulatory PSYCHIATRY TEACHER-Cristina Bobo PSYCHIATRY TEACHER [facility] Work Phone: Start: 05-25-2022 End: 05-25-2022 Patient encounter procedure PSYCHIATRY TEACHER-Cristina Bobo NP [place] Start: 05-24-2022 End: 05-24-2022 Patient encounter procedure PSYCHIATRY TEACHER-Cristina Bobo PSYCHIATRY TEACHER [facility] Start: 05-16-2022 End: 05-16-2022 Patient encounter procedure PSYCHIATRY TEACHER-Cristina Bobo PSYCHIATRY TEACHER [facility] Start: 05-10-2022 End: 05-10-2022 Patient encounter procedure PSYCHIATRY TEACHER-Cristina Bobo PSYCHIATRY TEACHER [facility] Start: 05-03-2022 Registered Recurring PSYCHIATRY TEACHER-Cristina Bobo PSYCHIATRY TEACHER [facility] Start: 05-03-2022 End: 05-03-2022 Patient encounter procedure PSYCHIATRY TEACHER-Cristina Bobo NP [facility] Start: 04-27-2022 Non-patient / Non-visit PSYCHIATRY TEACHER-Cristina Bobo PSYCHIATRY TEACHER [facility] Start: 04-26-2022 End: 04-26-2022 Patient encounter procedure PSYCHIATRY TEACHER-Cristina Bobo PSYCHIATRY TEACHER [facility] Start: 04-21-2022 End: 04-21-2022 Patient encounter procedure PSYCHIATRY TEACHER-Cristina Bobo PSYCHIATRY TEACHER [facility] Start: 04-19-2022 End: 04-19-2022 Non-patient / Non-visit PSYCHIATRY TEACHER-Cristina Bobo PSYCHIATRY TEACHER [facility] Start: 04-19-2022 End: 04-19-2022 ambulatory PSYCHIATRY TEACHER-Cristina Bobo PSYCHIATRY TEACHER [facility] Work Phone: Start: 04-19-2022 End: 04-19-2022 Patient encounter procedure PSYCHIATRY TEACHER-Cristina Bobo PSYCHIATRY TEACHER [facility]-Pulmonary Services/Neurology Start: 04-19-2022 End: 04-19-2022 Patient encounter procedure PSYCHIATRY TEACHER-Cristina Bobo PSYCHIATRY TEACHER [facility] Start: 04-14-2022 End: 04-14-2022 Patient encounter procedure PSYCHIATRY TEACHER-Cristina Bobo PSYCHIATRY TEACHER [facility] Start: 04-13-2022 End: 04-13-2022 Patient encounter procedure PSYCHIATRY TEACHER-Cristina Bobo PSYCHIATRY TEACHER [facility] Start: 04-12-2022 End: 04-12-2022 Patient encounter procedure PSYCHIATRY TEACHER-Cristina Bobo PSYCHIATRY TEACHER [facility] Start: 04-07-2022 End: 04-07-2022 Patient encounter procedure PSYCHIATRY TEACHER-Cristina Bobo PSYCHIATRY TEACHER [facility] Start: 04-05-2022 End: 04-05-2022 Patient encounter procedure PSYCHIATRY TEACHER-Cristina Bobo PSYCHIATRY TEACHER [facility] Start: 04-05-2022 End: 04-05-2022 Patient encounter procedure PSYCHIATRY TEACHER-Cristina Bobo PSYCHIATRY TEACHER [facility] Start: 03-30-2022 End: 03-30-2022 Emergency department patient visit PSYCHIATRY TEACHER-Cristina Bobo NP [facility]-Emergency Department Start: 03-29-2022 Non-patient / Non-visit PSYCHIATRY TEACHER-Cristina Bobo NP [facility] Start: 03-29-2022 End: 03-29-2022 Patient encounter procedure PSYCHIATRY TEACHER-Cristina Bobo NP [facility] Start: 03-29-2022 Registered Recurring RUDY Bobo PSYCHIATRY TEACHER [facility] Start: 03-22-2022 End: 03-22-2022 ambulatory PSYCHIATRY TEACHER-Cristina Bobo PSYCHIATRY TEACHER [facility] Work Phone: Start: 03-22-2022 End: 03-22-2022 Patient encounter procedure PSYCHIATRY TEACHER-Cristina Bobo NP [facility]-Outpatient Breast Imaging Start: 03-21-2022 Non-patient / Non-visit PSYCHIATRY TEACHER-Cristina Bobo PSYCHIATRY TEACHER [facility] Start: 03-15-2022 End: 03-15-2022 Patient encounter procedure PSYCHIATRY TEACHER-Cristina Bobo PSYCHIATRY TEACHER [facility] Start: 03-15-2022 End: 03-15-2022 Patient encounter procedure PSYCHIATRY TEACHER-Cristina Bobo PSYCHIATRY TEACHER [facility] Start: 03-04-2022 End: 03-04-2022 Patient encounter procedure PSYCHIATRY TEACHER-Cristina Bobo NP [facility] Start: 03-03-2022 Non-patient / Non-visit PSYCHIATRY TEACHER-Cristina Bobo PSYCHIATRY TEACHER [facility] Start: 03-03-2022 End: 03-03-2022 Admission to same day surgery center PSYCHIATRY TEACHER-Cristina Bobo PSYCHIATRY TEACHER [facility]-Surgical Day Care Start: 03-03-2022 End: 03-03-2022 ambulatory PSYCHIATRY TEACHER-Cristina Bobo PSYCHIATRY TEACHER [facility] Work Phone: Start: 03-02-2022 End: 03-02-2022 Patient encounter procedure PSYCHIATRY TEACHER-Cristina Bobo PSYCHIATRY TEACHER [facility] Start: 03-02-2022 End: 03-02-2022 Patient encounter procedure PSYCHIATRY TEACHER-Cristina Bobo NP [facility] Start: 02-28-2022 Registered Recurring PSYCHIATRY TEACHERLisa Bobo PSYCHIATRY TEACHER [facility] Start: 02-28-2022 End: 02-28-2022 Patient encounter procedure PSYCHIATRY TEACHER-Cristina Bobo NP [facility] Start: 02-28-2022 End: 02-28-2022 ambulatory PSYCHIATRY TEACHER-Cristina Bobo PSYCHIATRY TEACHER [facility] Work Phone: Start: 02-28-2022 End: 02-28-2022 Patient encounter procedure PSYCHIATRY TEACHER-Cristina Bobo NP [facility] Start: 02-23-2022 End: 02-23-2022 ambulatory PSYCHIATRY TEACHER-Cristina Bobo PSYCHIATRY TEACHER [facility] Work Phone: Start: 02-23-2022 End: 02-23-2022 Patient encounter procedure PSYCHIATRY TEACHER-Cristina Bobo NP [facility] Start: 02-18-2022 Non-patient / Non-visit PSYCHIATRY TEACHER-Cristina Bobo NP [facility] Start: 02-17-2022 End: 02-17-2022 Patient encounter procedure PSYCHIATRY TEACHER-Cristina Bobo NP [facility]-Pulmonary Services/Neurology Start: 02-16-2022 End: 02-16-2022 Patient encounter procedure RUDY Bobo NP [facility]-Pulmonary Medicine [facility] Start: 02-15-2022 Non-patient / Non-visit PSYCHIATRY TEACHER-Cristina Bob[facility] [facility] Start: 02-14-2022 End: 02-14-2022 ambulatory PSYCHIATRY TEACHER-Cristina Bobo PSYCHIATRY TEACHER [facility] Work Phone: Start: 02-14-2022 End: 02-14-2022 Patient encounter procedure PSYCHIATRY TEACHER-Cristina Bobo NP [facility]-Pulmonary Services/Neurology Start: 02-11-2022 Non-patient / Non-visit PSYCHIATRY TEACHER-Cristina Bobo PSYCHIATRY TEACHER [facility] Start: 02-11-2022 End: 02-11-2022 Admission to same day surgery center PSYCHIATRY TEACHER-Cristina Bobo PSYCHIATRY TEACHER [facility]-Endoscopy Start: 02-11-2022 End: 02-11-2022 ambulatory PSYCHIATRY TEACHER-Cristina Bobo PSYCHIATRY TEACHER [facility] Work Phone: Start: 02-10-2022 End: 02-10-2022 ambulatory PSYCHIATRY TEACHER-Cristina Bobo PSYCHIATRY TEACHER [facility] Work Phone: Start: 02-10-2022 End: 02-10-2022 Patient encounter procedure PSYCHIATRY TEACHER-Cristina Bobo NP [facility]-Cat Scan, [facility] Start: 02-07-2022 End: 02-07-2022 ambulatory PSYCHIATRY TEACHER-Cristina Bobo PSYCHIATRY TEACHER [facility] Work Phone: Start: 02-07-2022 End: 02-07-2022 Patient encounter procedure PSYCHIATRY TEACHER-Cristina Bobo PSYCHIATRY TEACHER [facility]-Laboratory, [place] Start: 02-02-2022 End: 02-02-2022 Patient encounter procedure PSYCHIATRY TEACHER-Cristina Bobo NP [facility]-Pulmonary Medicine [facility] Start: 01-30-2022 End: 01-31-2022 Emergency department patient visit PSYCHIATRY TEACHER-Cristina Bobo PSYCHIATRY TEACHER [facility]-Emergency Department Procedures Date Procedure Procedure Detail Performing Clinician Start: 01-28-2025 Estimated creatinine clearance Lynda Alonso MD Work Phone: Start: 01-28-2025 Serum inorganic phos phate measurement Lynda Alonso MD Work Phone: Start: 01-20-2025 CT of thorax and abd omen with contrast Lynda Alonso MD Work Phone: Start: 01-20-2025 MRI of brain with contrast Lynda Alonso MD Work Phone: Start: 01-07-2025 Estimated creatinine clearance Lynda Alonso MD Work Phone: Start: 01-07-2025 Serum inorganic phos phate measurement Lynda Alonso MD Work Phone: Start: 12-19-2024 Urnls dip stick/tabl et reagent auto microscopy Lynda Alonso MD Work Phone: Start: 12-19-2024 Urine culture Lynda griffin MD Work Phone: Start: 12-17-2024 Estimated creatinine clearance Lynda Alonso MD Work Phone: Start: 12-17-2024 Serum inorganic phos phate measurement Lynda Alonso MD Work Phone: Start: 12-05-2024 Urnls dip stick/tabl et reagent auto microscopy Lynda Alonso MD Work Phone: Start: 12-05-2024 Urine culture Lynda griffin MD Work Phone: Start: 12-03-2024 MRI of brain with contrast Lynda Alonso MD Work Phone: Start: 11-26-2024 Estimated creatinine clearance Lynda Alonso MD Work Phone: Start: 11-26-2024 Serum inorganic phos phate measurement Lynda Alonso MD Work Phone: Start: 11-05-2024 Estimated creatinine clearance Lynda Alonso MD Work Phone: Start: 11-05-2024 Serum inorganic phos phate measurement Lynda Alonso MD Work Phone: Start: 10-08-2024 Estimated creatinine clearance Lynda Alonso MD Work Phone: Start: 10-08-2024 Serum inorganic phos phate measurement Lynda Alonso MD Work Phone: Start: 10-02-2024 Plain chest X-ray Manjit Alonso MD Work Phone: Start: 10-02-2024 Implantation to cardiovascular system Lynda Alonso MD Work Phone: Start: 10-02-2024 Fluoroscopic guidance Cristina Alonso MD Work Phone: Start: 09-17-2024 PET study for locali zation of tumor Lynda Alonso MD Work Phone: Start: 09-11-2024 Vitamin D, 25-hydrox y measurement Lynda Alonso MD Work Phone: Comment on [...] Start: 2023 CT of chest and abdomen PSYCHIATRY TEACHER-C Lara Michener PSYCHIATRY TEACHER Start: 08-03-2023 MRI of brain with contrast PSYCHIATRY TEACHER-C Lara Michener PSYCHIATRY TEACHER Start: 06-21-2023 Screening mammography Rosio Jack Work Phone: Start: 03-21-2023 MRI of brain with contrast PSYCHIATRY TEACHER-C Lara Michener PSYCHIATRY TEACHER Start: 02-02-2023 CT of chest and abdomen PSYCHIATRY TEACHER-C Lara Michener PSYCHIATRY TEACHER Start: 01-26-2023 Plain chest X-ray PSYCHIATRY TEACHER-C Lara Michener PSYCHIATRY TEACHER Start: 12-02-2022 MRI of brain with contrast PSYCHIATRY TEACHER-C Lara Michener PSYCHIATRY TEACHER Start: 09-02-2022 MRI of brain with contrast PSYCHIATRY TEACHER-C Lara Michener PSYCHIATRY TEACHER Start: 07-26-2022 PET study for locali zation of tumor PSYCHIATRY TEACHER-C Lara Michener PSYCHIATRY TEACHER Start: 06-27-2022 MRI of brain with contrast PSYCHIATRY TEACHER-Cristina Bobo PSYCHIATRY TEACHER Start: 06-15-2022 Allergen spec ige cr ude allergen extract each Lynda Alonso MD Work Phone: Start: 05-25-2022 CT angiography of ch est with contrast PSYCHIATRY TEACHER-Cristina Bobo PSYCHIATRY TEACHER Start: 03-22-2022 Screening mammography N P-Cristina Bboo PSYCHIATRY TEACHER Start: 03-03-2022 Implantation to cardiovascular system PSYCHIATRY TEACHER-Cristina Bobo PSYCHIATRY TEACHER Start: 03-03-2022 Radiographic procedu re of chest PSYCHIATRY TEACHER-Cristina Bobo PSYCHIATRY TEACHER Start: 03-03-2022 Fluoroscopic guidance N P-Cristina Bobo PSYCHIATRY TEACHER Start: 02-28-2022 MRI of brain with contrast PSYCHIATRY TEACHER-Cristina Bobo PSYCHIATRY TEACHER Start: 02-23-2022 PET study for locali zation of tumor PSYCHIATRY TEACHER-Cristina Bobo PSYCHIATRY TEACHER Start: 02-11-2022 Endoscopic ultrasono graphy of bronchus PSYCHIATRY TEACHER-Cristina Boob PSYCHIATRY TEACHER Start: 02-10-2022 Computed tomography of abdomen and pelvis with contrast PSYCHIATRY TEACHER-Cristina Bobo PSYCHIATRY TEACHER Start: 01-30-2022 CT angiography of ch est with contrast PSYCHIATRY TEACHER-Cristina Bobo PSYCHIATRY TEACHER Start: 01-30-2022 Plain chest X-ray PSYCHIATRY TEACHER-Cristina Bobo PSYCHIATRY TEACHER Plan of Treatment Date Care Activity Detail Author Start: 01-28-2025 Lactate dehydrogenase measurement [facility] Start: 01-28-2025 Serum inorganic phosphate measurement [facility] Start: 01-28-2025 T4 free measurement [facility] Start: 01-28-2025 Thyroid stimulating hormone measurement [facility] Start: 01-28-2025 Vital signs measurements [facility] Start: 01-28-2025 [facility] Start: 01-20-2025 Venous catheter care management [facility] Start: 01-10-2025 End: 01-10-2025 Patient encounter procedure Tachycardia -Luis [facility] Work Phone: Start: 01-07-2025 Vital signs measurements [facility] Start: 12-19-2024 Vital signs measurements [facility] Start: 12-18-2024 Vital signs measurements [facility] Start: 12-17-2024 [facility] Start: 12-17-2024 Vital signs measurements [facility] Start: 12-03-2024 Venous catheter care management [facility] Start: 11-28-2024 Vital signs measurements [facility] Start: 11-27-2024 Vital signs measurements [facility] Start: 11-26-2024 [facility] Start: 11-26-2024 Vital signs measurements [facility] Start: 11-07-2024 Vital signs measurements [facility] Start: 11-06-2024 Vital signs measurements [facility] Start: 11-05-2024 Thyroid stimulating hormone measurement [facility] Start: 11-05-2024 [facility] Start: 11-05-2024 Vital signs measurements [facility] Start: 10-10-2024 Vital signs measurements [facility] Start: 10-09-2024 Vital signs measurements [facility] Start: 10-08-2024 [facility] Start: 10-08-2024 Vital signs measurements [facility] Start: 10-02-2024 Anesthesia access central venous circulation ANESTH VASCULAR ACCESS [facility] Start: 10-02-2024 Insj tunneled ctr vad w/subq port age 7 yr/> INSERT TUNNELED CV CATH [facility] Start: 10-02-2024 Patient discharge [facility] Start: 09-30-2024 Patient referral [facility] Work Phone: Start: 09-24-2024 Patient referral [facility] Work Phone: Start: 09-11-2024 Vitamin D, 25-hydroxy measurement [facility] Start: 09-03-2024 CORE NDL BX LNG/MED PERQ CORE NDL BX LNG/MED PERQ [facility] Start: 09-03-2024 Following clinical pathway protocol [facility] Start: 09-03-2024 Catheterization of vein [facility] Start: 09-03-2024 Oxygen therapy [facility] Start: 09-03-2024 Patient discharge [facility] Start: 09-03-2024 Vital signs measurements [facility] Start: 04-30-2024 [facility] Start: 04-29-2024 [facility] Start: 04-18-2024 Patient referral [facility] Work Phone: Start: 08-03-2023 Venous catheter care management [facility] Start: 03-21-2023 Venous catheter care management [facility] Start: 02-02-2023 Venous catheter care management [facility] Start: 12-02-2022 Venous catheter care management [facility] Start: 09-09-2022 Patient referral [facility] Work Phone: Start: 09-02-2022 Venous catheter care management [facility] Start: 06-27-2022 Venous catheter care management [facility] Start: 06-27-2022 MR Brain WO and W contrast IV [facility] Start: 06-15-2022 Patient referral [facility] Work Phone: Start: 06-08-2022 Administration of blood product [facility] Start: 06-08-2022 [facility] Start: 05-25-2022 Venous catheter care management [facility] Start: 05-04-2022 Vital signs measurements [facility] Start: 05-03-2022 Vital signs measurements [facility] Start: 04-07-2022 Vital signs measurements [facility] Start: 04-06-2022 Vital signs measurements [facility] Start: 04-05-2022 Vital signs measurements [facility] Start: 03-17-2022 Vital signs measurements [facility] Start: 03-16-2022 Vital signs measurements [facility] Start: 03-15-2022 Venous catheter care management [facility] Start: 03-15-2022 Vital signs measurements [facility] Start: 03-03-2022 Anesthesia access central venous circulation ANESTH VASCULAR ACCESS [facility] Start: 03-03-2022 Insj tunneled ctr vad w/subq port age 7 yr/> INSERT TUNNELED CV CATH [facility] Start: 03-03-2022 Patient discharge [facility] Start: 02-28-2022 Patient referral [facility] Work Phone: Start: 02-16-2022 Patient referral [facility] Work Phone: Start: 02-11-2022 [facility] ebus guided sampl 3/> node station/strux BRONCH EBUS SAMPLNG 3/> NODE [facility] Start: 02-11-2022 Patient discharge [facility] Alanine aminotransfe rase [Enzymatic activity/volume] in Serum or Plasma [facility] Alanine aminotransfe rase [Enzymatic activity/volume] in Serum or Plasma [facility] Albumin [Mass/volume ] in Serum or Plasma [facility] Albumin [Mass/volume ] in Serum or Plasma [facility] Alkaline phosphatase [Enzymatic activity/volume] in Serum or Plasma [facility] Alkaline phosphatase [Enzymatic activity/volume] in Serum or Plasma [facility] Anion gap in Serum o r Plasma [facility] Anion gap in Serum o r Plasma [facility] Basic metabolic 2008 panel with ionized calcium - Serum or Plasma [facility] Bilirubin, total measurement [facility] Bilirubin, total measurement [facility] Blood chemistry [facility] BUN/Creatinine ratio [facility] BUN/Creatinine ratio [facility] Calcium [Mass/volume ] in Serum or Plasma [facility] Calcium [Mass/volume ] in Serum or Plasma [facility] Carbon dioxide, tota l [Moles/volume] in Central venous blood [facility] Carbon dioxide, tota l [Moles/volume] in Central venous blood [facility] CBC W Auto Different ial panel - Blood [facility] CBC W Auto Different ial panel - Blood [facility] CBC W Auto Different ial panel - Blood [facility] CBC W Auto Different ial panel - Blood [facility] CBC W Auto Different ial panel - Blood [facility] CBC W Auto Different ial panel - Blood [facility] CBC W Auto Different ial panel - Blood [facility] Cortisol [Mass/volum e] in Serum or Plasma [facility] Creatinine [Mass/vol ume] in Serum or Plasma [facility] Creatinine [Mass/vol ume] in Serum or Plasma [facility] CT Chest and Abdomen W contrast IV [facility] CT Chest and Abdomen W contrast IV [facility] CT Chest and Abdomen W contrast IV [facility] Erythrocyte mean corpuscular volume determination [facility] Erythrocyte mean corpuscular volume determination [facility] Exercise tolerance test [facility] Work Phone: Glucose [Mass/volume ] in Serum or Plasma [facility] Glucose [Mass/volume ] in Serum or Plasma [facility] Hematocrit [Volume Fraction] of Blood [facility] Hematocrit [Volume Fraction] of Blood [facility] Hemoglobin [Mass/vol ume] in Blood [facility] Hemoglobin [Mass/vol ume] in Blood [facility] Leukocytes [#/volume ] in Blood [facility] Leukocytes [#/volume ] in Blood [facility] Magnesium [Mass/volu me] in Serum or Plasma [facility] Magnesium measurement [facility] Magnesium measurement [facility] Mean corpuscular hem oglobin concentration determination [facility] Mean corpuscular hem oglobin concentration determination [facility] Mean corpuscular hem oglobin determination [facility] Mean corpuscular hem oglobin determination [facility] Measurement of renal function [facility] Measurement of renal function [facility] Measurement of respi ratory function [facility] Work Phone: Measurement of respi ratory function [facility] MR Brain WO and W co ntrast IV [facility] Work Phone: MR Brain WO and W co ntrast IV [facility] MR Brain WO and W co ntrast IV [facility] MR Brain WO and W co ntrast IV [facility] MR Brain WO and W co ntrast IV [facility] MR Brain WO and W co ntrast IV [facility] MR Brain WO and W co ntrast IV [facility] MR Brain WO and W co ntrast IV [facility] MR Lumbar spine WO a nd W contrast IV [facility] MR Pelvis WO and W c ontrast IV [facility] Neutrophil count [facility] Neutrophil count [facility] Neutrophil percent differential count [facility] Neutrophil percent differential count [facility] Patient Education [facility] Work Phone: Patient referral [facility] Work Phone: Platelets [#/volume] in Blood [facility] Platelets [#/volume] in Blood [facility] Positron emission tomography with computed tomography [facility] Work Phone: Positron emission tomography with computed tomography [facility] Potassium measurement [facility] Potassium measurement [facility] PT Unspecified body region [facility] PT Unspecified body region [facility] Red blood cell count [facility] Red blood cell count [facility] Red cell distributio n width determination [facility] Red cell distributio n width determination [facility] Serum chloride measurement [facility] Serum chloride measurement [facility] Sodium measurement [facility] Sodium measurement [facility] T4 free measurement [facility] Thyroid stimulating hormone measurement [facility] Thyroid stimulating hormone measurement [facility] Total protein measurement [facility] Total protein measurement [facility] Urea nitrogen [Mass/ volume] in Serum or Plasma [facility] Urea nitrogen [Mass/ volume] in Serum or Plasma [facility] US Heart [facility] Immunizations Immunization Date Immunization Notes Care Provider Fa [facility] 02-28-2022 influenza, injectabl e, quadrivalent, preservative free PSYCHIATRY TEACHER-C Lara Bobo PSYCHIATRY TEACHER [facility] 02-28-2022 influenza, seasonal, injectable PSYCHIATRY TEACHER-C Lara Bobo PSYCHIATRY TEACHER [facility] Payers Date Payer Category Payer Medicare [id number] 2023 Unknown [id number] 2022 Medicare [id number] 2022 Self-pay [id number] 2022 Unknown 0 [id number] 2015 Private Health Insurance [id number] Unknown [id number] Unknown [facility] [id number] [facility] [id number] Unknown [id number] 2.16.840.1.023550.3.579.2.462 Unknown [id number] 2.16.840.1.530578.3.579.2.462 Unknown [id number] 2.16.840.1.177165.3.579.2.462 Unknown [id number] 2.16.840.1.811285.3.579.2.462 Unknown [id number] 2.16.840.1.222292.3.579.2.462 Unknown [id number] 2.16.840.1.690636.3.579.2.462 Unknown [id number] 2.16.840.1.157583.3.579.2.462 Unknown [id number] 2.16.840.1.437144.3.579.2.462 Unknown [id number] 2.16.840.1.481617.3.579.2.462 Unknown [id number] 2.16.840.1.522183.3.579.2.462 Unknown [id number] 2.16.840.1.085772.3.579.2.462 Unknown [id number] 2.16.840.1.102239.3.579.2.462 Unknown [id number] 2.16.840.1.972662.3.579.2.462 Unknown [id number] 2.16.840.1.333110.3.579.2.462 Unknown [id number] 2.16.840.1.239114.3.579.2.462 Unknown [id number] 2.16.840.1.187414.3.579.2.462 Unknown [id number] 2.16.840.1.826290.3.579.2.462 Unknown [id number] 2.16.840.1.685544.3.579.2.462 Unknown [id number] 2.16.840.1.312282.3.579.2.462 Unknown [id number] 2.16.840.1.739159.3.579.2.462 Unknown [id number] 2.16.840.1.452624.3.579.2.462 Unknown [id number] 2.16840.1.807429.3.579.2.462 Unknown [id number] 2.16840.1.217215.3.579.2.462 Unknown [id number] 2.16840.1.116384.3.579.2.462 Unknown [id number] 2.16.840.1.539825.3.579.2.462 Unknown [id number] 2.16840.1.500608.3.579.2.462 Unknown [id number] 2.16840.1.051894.3.579.2.462 Unknown [id number] 2.16840.1.801565.3.579.2.462 Unknown [id number] 2.16.840.1.619071.3.579.2.462 Unknown [id number] 2.16.840.1.549475.3.579.2.462 Unknown [id number] 2.16.840.1.413260.3.579.2.462 Unknown [id number] 2.16.840.1.422812.3.579.2.462 Unknown [id number] 2.16840.1.687256.3.579.2.462 Unknown [id number] 2.16.840.1.322323.3.579.2.462 Unknown [id number] 2.16.840.1.003730.3.579.2.462 Unknown [id number] 2.16.840.1.609055.3.579.2.462 Unknown [id number] 2.16.840.1.517154.3.579.2.462 Unknown [id number] 2.16.840.1.128588.3.579.2.462 Unknown [id number] 2.16.840.1.038521.3.579.2.462 Unknown [id number] 2.16.840.1.029987.3.579.2.462 Unknown [id number] 2.16.840.1.400327.3.579.2.462 Unknown [id number] 2.16.840.1.808526.3.579.2.462 Unknown [id number] 2.16.840.1.694445.3.579.2.462 Unknown [id number] 2.16.840.1.604932.3.579.2.462 Unknown [id number] 2.16.840.1.096192.3.579.2.462 Unknown [id number] 2.16.840.1.562404.3.579.2.462 Unknown [id number] 2.16.840.1.450418.3.579.2.462 Unknown [id number] 2.16.840.1.798840.3.579.2.462 Unknown [id number] 2.16.840.1.481358.3.579.2.462 Unknown [id number] 2.16.840.1.052584.3.579.2.462 Unknown [id number] 2.16.840.1.609561.3.579.2.462 Unknown [id number] 2.16.840.1.889781.3.579.2.462 Unknown [id number] 2.16.840.1.317174.3.579.2.462 Unknown [id number] 2.16.840.1.834012.3.579.2.462 Unknown [id number] 2.16.840.1.302099.3.579.2.462 Unknown [id number] 2.16.840.1.368386.3.579.2.462 Unknown [id number] 2.16.840.1.115933.3.579.2.462 Social History Date Type Detail Facility Start: 02-02-2022 End: 06-16-2023 Tobacco smoking status NHIS Unknown if ever smoked [facility] Start: 1955 Sex Assigned At Female [facility] Start: 04-30-2024 Tobacco smoking status NHIS Ex-smoker (finding) [facility] Start: 07-01-2024 End: 07-31-2024 Sex Female (finding) [facility] Start: 09-03-2024 End: 01-10-2025 Tobacco smoking status NHIS Smokes tobacco daily (finding) [facility] Start: 09-30-2024 Tobacco smoking status NHIS Current some day smoker [facility] Not [facility] NEGATED: Highlighted row [facility] Work Phone: NEGATED: Highlighted row [facility] NEGATED: Highlighted row Not [facility] Medical Equipment Procedure Code Equipment Code Equipment Origin al Text Equipment Identifier Dates Insertion, vascular access port [id number]) Vascular port/catheter [id number]( [id number] FDA Start: 03-03-2022 Insertion, vascular access port ([id number]) Vascular port/catheter [id number] FDA Start: 10-02-2024 Goals Date Patient Goal Desired Activity /State Mental Status Date Assessment Result Facility 10-02-2024 Cognitive function Voice/Name [facility] Work Phone: 09-03-2024 Cognitive function Awake;Alert;Appropriat e [facility] Work Phone: 06-08-2022 Cognitive function Voice/Name [facility] Work Phone: 03-03-2022 Cognitive function Level Of Cons ciousness Awake;Alert [facility] Work Phone: 03-03-2022 Cognitive function Voice/Name [facility] Work Phone: 02-11-2022 Cognitive function Level Of Cons ciousness Appropriate;Drowsy [facility] Work Phone: 02-11-2022 Cognitive function Voice/Name [facility] Work Phone: 01-30-2022 Cognitive function Level Of Cons ciousness Awake;Alert;Appropriate;Follow s Commands [facility] Work Phone: Clinical Notes 11-29-2022 to 01-23-2025 Note Date & Type Note Facility 01-23-2025 Progress note [facility] 01-10-2025 Progress note [facility] 01-07-2025 Progress note [facility] 10-16-2024 Evaluation note Diagnosis Onset Date Resolution Local recurrence of lung cancer chronic October 16, 2024 2:28pm Metastasis to lung chronic October 162024 2:28pm Regional lymph node metastasis present chronic October 16 2:28pm Small cell lung cancer, right upper lobe chronic October 16, 2024 2:28pm Local recurrence of lung cancer chronic November 05, 2024 7:52am Metastasis to lung chronic October 162024 7:52am Regional lymph node metastasis present chronic November 05 7:52am Small cell lung cancer, right upper lobe chronic November 05, 2024 7:52am Metastasis to lung chronic November 26, 2024 8:15am Regional lymph node metastasis present chronic November 26, 2024 8:15am Small cell lung cancer, right upper lobe chronic November 26 8:15am Metastasis to lung chronic 2024 7:50am Regional lymph node metastasis present chronic December 7:50am Small cell lung cancer, right upper lobe chronic December 17, 2024 7:50am Encounter for antineoplastic immunotherapy acute January 07, 2025 9:28am Metastasis to lung chronic Septem mary kate 2024 9:28am Regional lymph node metastasis present chronic December d2024 9:28am Small cell lung cancer, right upper lobe chronic January 07, 2025 9:28am Tachycardia acute December 9:01am Local recurrence of lung cancer chronic January 23 1:08pm Metastasis to lung chronic Octobe r 2024 10:15am Regional lymph node metastasis present chronic January 28, 2025 10:15am Small cell lung cancer, right upper lobe chronic January 28, 025 10:15am [facility] Work Phone: 1(516) 597-951106-24-2025 [facility] [address] [place] [address] OFFICE VISIT Date of Service: 10/08/24 0900 MR#: [id number] Acct: [id number] Name: GABRIELLE RIOS Rep #: [id number] : 1955 From: Shavonne Lepe ch PSYCHIATRY TEACHER PSYCHIATRY TEACHER-C Age/Sex: 69/F Location: [facility] Status: Signed HPI Subjective Date of Service 10/08/24 Chief Complaint SCLC on treatment History of Present Illness 69-year-old female, smoker with a past medical history [...] Block J CK7 (OV-TL12/30) positive, focal CK8 (44fesoH81) positive, focal CK20 (KS20.8) negative 34BE12 (34BE12) negative CD56 (123C3.D5) positive Chromo (LK2H10) positive, focal Synapto (polyclonal) positive, rare NSE Neuron Specific Enolase positive TTF-1 (8G7G3/1) negative Napsin A (Rabbit Polyclonal) positive, dim CK5-6 (D5 & 1684) negative P40 (BC28) negative Block K CK7 (OV-TL12/30) negative CK8 (17cnynO31) positive, focal CK20 (KS20.8) negative 34BE12 (34BE12) [...] al, Journal of Nuclear Medicine 43:302 P, 2002). 2. Overall, compared to the previous FDG [...] of small cell lung carcinoma are noted ([id number],C22-459). The TTF-1 was tested and also negative in the C22-459 specimen. September 17, 2024 PET/CT restaging: IMPRESSION: FDG avid- Hypermetabolic multiple lung nodules seen within the right upper lobe and also the superior segmentof the right lower lobe, some extending to the right hilum, highly concerning for malignancy. Treatment summary and response: * Carboplatin etoposide [...] the SCLC recurrence with an SBRT technique. Interval History The patient is presenting to clinic accompanied by spouse for an evaluation anticipating she will begin palliative chemoimmunotherapy. She denies any concerns r/t todays visit. Reports increased exertional dyspnea. Able to perform instrumental ADLs withoutdifficulty. Cough intermittent and productive, notes traces of hemoptysis in the zookeeper hours. Began after biopsy. [facility] Medical History (Updated 10/08/24 @ 09:56 by Shavonne Blanchard PSYCHIATRY TEACHER, PSYCHIATRY TEACHER-C) Encounter for antineoplastic chemotherapy and immunotherapy Loss of hearing History of steroid therapy Arthritis Easy bruising Back pain History of ulceration Shortness of breath on exertion History of irregular heartbeat History of echocardiogram Metastasis to lung Vitiligo Local recurrence of lung cancer Generalized weakness Low back pain Encounter for chemotherapy management Anemia Tachycardia Thrombocytopenia Constipation Cancer Encounter for education Chronic renal failure Regional lymph node metastasis present Wears glasses Wears dentures Post-menopausal Depression Anxiety Alcohol use Gastric reflux Smoker Cardiology follow-up encounter Vitamin D deficiency Surgical History History of vascular access device [...] members: significant other 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, 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 Smoking Status: Current every day smoker (Patient smoked today.) Tobacco: How many years used: 50 second hand exposure: Yes alcohol intake: former year quit: 2014 details: quit 7 years ago 2014 substance use type: does not use diet: other caffeine: Yes Type: coffee Number of servings: 3 what type of physical activity do you participate in: walking frequency: 1-2 times per week ROS ROS Narrative Negative except as documented in the interval HPI Intake Vital Signs 09/30/24 15:10 10/02/24 07:40 10/08/24 09:01 Height 5 ft 5 in 5 ft 3 in 5 ft 5 in Weight: 140 lb 7 oz BMI 23.3 BP 110/73 Blood Pressure Location Rt brachial Position Sitting Respiration 16 Pulse 77 Pulse Source Monitor Temp 98.2 F Temperature Source Temporal Artery Pulse Oximetry (%) 99 Oxygen Delivery Method room air Intake Is patient in pain?: Yes (Back pain and nerve pain across buttocks ) Allergies amoxicillin (From Augmentin) Allergy (Intermediate, Verified 10/08/24 09:07) stomach pain clavulanic acid (From Augmentin) Allergy (Intermediate, Verified 10/08/24 09:07) stomach pain Sulfa (Sulfonamide Antibiotics) Allergy (Verified 10/08/24 09:07) Nausea Medications ?Medication ?Instructions ?Recorded ?Confirmed ?Type famotidine 20 mg tablet 20 mg PO QHS 10/26/23 History magnesium citrate 100 mg capsule 100 mg PO DAILY 11/2910/08/24 History metoprolol succinate 50 mg 50 mg PO QDAY #90 tabs 02/0 08/0910/08/24 Rx tablet,extended release 24 hr oxycodone 5 mg capsule 5 mg PO TID 09/03/24 5 History lidocaine-prilocaine 2.5 %-2.5 % 1 applic topical ONCE PRN port 09/30/24 10/08/24 Rx topical cream access 30 days #30 grams ondansetron 8 mg disintegrating 8 mg PO Q8H PRN nausea and 09/30/24 10/08/24 Rx tablet vomiting #30 tabs pregabalin 100 mg capsule 100 mg PO QHS 10/08/2410/08 History pregabalin 50 mg capsule 50 mg PO QDAY 10/08/2410/08 History Have you fallen in the past year?: No Laboratory Tests 09/11/24 10/08/24 13:01 08:30 WBC 10.7 Hgb 13.5 Hct 40.6 Plt Count 201 Sodium 137 Potassium 4.4 Chloride 103 Carbon Dioxide 24.0 BUN 12 Creatinine 0.86 Glucose 174 H Calcium 8.8 Magnesium 2.2 Total Bilirubin 0.72 AST 26 ALT 13 Alkaline Phosphatase 77 TSH 2.390 Exam Physical Exam Narrative ECOG 0 Const alert, oriented x3 and no apparent distress HEENT normocephalic Face and Sinus: normal facial exam Mouth: oral and palatal mucosa normal Eyes General Eye: normal appearance of both eyes Neck no lymphadenopathy, supple and no JVD Lymph Lymphatic: no lymphadenopathy noted Chest Chest Narrative: Port right upper chest access left upper With DSD Chest: symmetrical chest wall rise Resp clear to auscultation bilaterally Auscultation: diminished lung sounds bilateral and diffuse; Negative for rhonchior wheezes Cardio regular rate and regular rhythm Jugular Venous Distention: Negative for JVD GI soft to palpation, non-tender and non-distended; Negative for hepatosplenomegaly Back/Spine no thoracic nor lumbar tenderness Extremity no clubbing, cyanosis or edema Skin no rashes or lesions noted Skin Narrative: Vitiligo Neuro oriented x3, CN's II-XII intact bilaterally, moves all extremities and no focal motor deficits Speech: speech normal Gait (Neuro): normal gait Psych mental status grossly normal Coding Level of Care Code Off vis,est,level 4 Exam Problem Focused Diagnoses Local recurrence of malignant neoplasm of right lung C34.91 Laterality: right Small cell lung cancer, right upper lobe C34.11 Regional lymph node metastasis present C77.9 Malignant neoplasm metastatic to right lung C78.01 Laterality: right Encounter for antineoplastic chemotherapy and immunotherapy Z51.11; Z51.12 Assessment and Plan Assessment and Plan (1) Local recurrence of lung cancer: Status: Acute Qualifiers: Laterality: right Qualified Code(s): C34.91 - Malignant neoplasm of unspecified part of right bronchus or lung (2) Small cell lung cancer, right upper lobe: Status: Chronic (3) Regional lymph node metastasis present: Status: Chronic (4) Metastasis to lung: Status: Acute Qualifiers: Laterality: right Qualified Code(s): C78.01 - Secondary malignant neoplasm of right lung (5) Encounter for antineoplastic chemotherapy and immunotherapy: Status: Acute Orders: Orders CBC W/Diff, Automated 10 Days C34.11 - Malignant neoplasm of upper lobe, right bronchus or lung Basic Metabolic Profile (BMP) 10 Days C34.11 - Malignant neoplasm of upper lobe, right bronchus or lung Plan 69year-old female smoker with limited stage small cell lung cancer; IIIA (T1, N2, M0). Completed combined modality treatment with intent to cure February,- May 2022 Without grade 3 or 4 toxicities. After completion of definitive treatment she continued to smoke. On surveillance following conclusion of definitive treatment imaging July 2023 shows a subtle subcentimeter right upper lobe nodule too small to characterize and within the irradiated field was evidence for surrounding bronchiectasis. A follow-up CT of the chest October 2023 shows the nodule slightlybigger. PET/CT in October 2023 was concerning for [...] and pelvis April 2024 also did not showevidence to suggest metastatic disease to bone. Imaging of the chest June 2024 shows a new right upper lobe subcentimeter nodule that was followedwith a short interval CT chest August 2024 and it has increased in size in addition to a new adjacent nodule. CT-guided biopsy confirmed recurrent small cell lung cancer. Restaging PET/CT September 2024 showed PET avid multiple nodules in the right lung upper and lower lobeswith extension into the right hilum Chronic comorbid conditions: COPD, hypertension, chronic renal insufficiency, chronic GERD, active smoker Plan: Based on NCCN guidelines 1-systemic palliative first-line chemo immune therapy (induction 4 cycles of atezolizumab, carboplatin and etoposide to be followed by maintenance atezolizumab until progression) for extensive stage small cell lung cancer sinceher prior yuhaaviatam exposure was in 2021?early 2022 for limited stage dise ase. Supportive treatment with antiemetics, primary prophylaxis with growth factor (primary prophylaxis for the prevention of febrile neutropenia based upon Recommendations for the Use of WBC Growth Factors: [place] [employer] Clinical On[employer] Clinical Practice Guideline Update. in patients who are at high risk onthe basis of age (>65) , medical history, disease stage and characteristics, myelotoxicity of the chemotherapy regimen, [ VANI CLAY, Ryley K, Fredy GH, Cali KR, Bert J, Neri SJ, Micah CARDONA, Edgar DESAI,Freedom PORTILLO, Ginny CL, Farzaneh G, Steve JL, Mika AJ, Yogesh J Clin Oncol. 2015;33(28):3199. ] Labs reviewed with patient, CBC values several parameters for treatment. All the patient's questions and concerns were addressed to her satisfaction and she will commence with cycle 1 today. 2-restaging brain MRI is not necessary at this time in absence of symptoms and that she had a brainMRI in June 2024. Return to office in 10 to 14 days labs prior and on 10/29/2024 for? Cycle 2 carboplatin, etoposide, atezolizumab. Clinical Quality Measures Falls Risk Screening/Assistive Devices Have you fallen in the past year?: No 10/08/24 0958 h RUBY PSYCHIATRY TEACHER-C> Date _ Shavonne Blanchard NP PSYCHIATRY TEACHER-C Cosigner Signature: Date (if applicable) CC: ~ [facility]06-24-2025 Progress note Author Shavonne Blanchard [facility] Note Date/Time October 08, 2024 9:58 am [facility] [address] [address] OFFICE VISIT Date of Service: 10/08/24 0900 MR#: [id number] Acct: [id number] Name: GABRIELLE RIOS Rep #: [id number] : 1955 From: Shavonne Lepe RUBY PSYCHIATRY TEACHER-C Age/Sex: 69/F Location: [facility] Status: Signed HPI Subjective Date of Service 10/08/24 Chief Complaint SCLC on treatment History of Present Illness 69-year-old female, smoker with a past medical history [...] Block J CK7 (OV-TL12/30) positive, focal CK8 (36dueoG08) positive, focal CK20 (KS20.8) negative 34BE12 (34BE12) negative CD56 (123C3.D5) positive Chromo (LK2H10) positive, focal Synapto (polyclonal) positive, rare NSE Neuron Specific Enolase positive TTF-1 (8G7G3/1) negative Napsin A (Rabbit Polyclonal) positive, dim CK5-6 (D5 & 1684) negative P40 (BC28) negative Block K CK7 (OV-TL12/30) negative CK8 (30pxqgI07) positive, focal CK20 (KS20.8) negative 34BE12 (34BE12) [...] al, Journal of Nuclear Medicine 43:302 P, 2002). 2. Overall, compared to the previous FDG [...] of small cell lung carcinoma are noted (V56-6735,C22-459). The TTF-1 was tested and also negative in the C22-459 specimen. September 17, 2024 PET/CT restaging: IMPRESSION: FDG avid- Hypermetabolic multiple lung nodules seen within the right upper lobe and also the superior segment of the right lower lobe, some extending to the right hilum, highly concerning for malignancy. Treatment summary and response: * Carboplatin etoposide [...] the SCLC recurrence with an SBRT technique. Interval History The patient is presenting to clinic accompanied by spouse for an evaluation anticipating she will begin palliative chemoimmunotherapy. She denies any concerns r/t todays visit. Reports increased exertional dyspnea. Able to perform instrumental ADLs withoutdifficulty. Cough intermittent and productive, notes traces of hemoptysis in the zookeeper hours. Began after biopsy. [facility] Medical History (Updated 10/08/24 @ 09:56 by Shavonne Blanchard PSYCHIATRY TEACHER, PSYCHIATRY TEACHER-C) Encounter for antineoplastic chemotherapy and immunotherapy Loss of hearing History of steroid therapy Arthritis Easy bruising Back pain History of ulceration Shortness of breath on exertion History of irregular heartbeat History of echocardiogram Metastasis to lung Vitiligo Local recurrence of lung cancer Generalized weakness Low back pain Encounter for chemotherapy management Anemia Tachycardia Thrombocytopenia Constipation Cancer Encounter for education Chronic renal failure Regional lymph node metastasis present Wears glasses Wears dentures Post-menopausal Depression Anxiety Alcohol use Gastric reflux Smoker Cardiology follow-up encounter Vitamin D deficiency Surgical History History of vascular access device [...] members: significant other 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, 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 Smoking Status: Current every day smoker (Patient smoked today.) Tobacco: How many years used: 50 second hand exposure: Yes alcohol intake: former year quit: 2014 details: quit 7 years ago 2014 substance use type: does not use diet: other caffeine: Yes Type: coffee Number of servings: 3 what type of physical activity do you participate in: walking frequency: 1-2 times per week ROS ROS Narrative Negative except as documented in the interval HPI Intake Vital Signs 09/30/24 15:10 10/02/24 07:40 10/08/24 09:01 Height 5 ft 5 in 5 ft 3 in 5 ft 5 in Weight: 140 lb 7 oz BMI 23.3 BP 110/73 Blood Pressure Location Rt brachial Position Sitting Respiration 16 Pulse 77 Pulse Source Monitor Temp 98.2 F Temperature Source Temporal Artery Pulse Oximetry (%) 99 Oxygen Delivery Method room air Intake Is patient in pain?: Yes (Back pain and nerve pain across buttocks ) Allergies amoxicillin (From Augmentin) Allergy (Intermediate, Verified 10/08/24 09:07) stomach pain clavulanic acid (From Augmentin) Allergy (Intermediate, Verified 10/08/24 09:07) stomach pain Sulfa (Sulfonamide Antibiotics) Allergy (Verified 10/08/24 09:07) Nausea Medications ?Medication ?Instructions ?Recorded ?Confirmed ?Type famotidine 20 mg tablet 20 mg PO QHS 10/26/23 History magnesium citrate 100 mg capsule 100 mg PO DAILY 11/2910/08/24 History metoprolol succinate 50 mg 50 mg PO QDAY #90 tabs 02/0 08/0910/08/24 Rx tablet,extended release 24 hr oxycodone 5 mg capsule 5 mg PO TID 09/03/24 5 History lidocaine-prilocaine 2.5 %-2.5 % 1 applic topical ONCE PRN port 09/30/24 10/08/24 Rx topical cream access 30 days #30 grams ondansetron 8 mg disintegrating 8 mg PO Q8H PRN nausea and 09/30/24 10/08/24 Rx tablet vomiting #30 tabs pregabalin 100 mg capsule 100 mg PO QHS 10/08/2410/08 History pregabalin 50 mg capsule 50 mg PO QDAY 10/08/2410/08 History Have you fallen in the past year?: No Laboratory Tests 09/11/24 10/08/24 13:01 08:30 WBC 10.7 Hgb 13.5 Hct 40.6 Plt Count 201 Sodium 137 Potassium 4.4 Chloride 103 Carbon Dioxide 24.0 BUN 12 Creatinine 0.86 Glucose 174 H Calcium 8.8 Magnesium 2.2 Total Bilirubin 0.72 AST 26 ALT 13 Alkaline Phosphatase 77 TSH 2.390 Exam Physical Exam Narrative ECOG 0 Const alert, oriented x3 and no apparent distress HEENT normocephalic Face and Sinus: normal facial exam Mouth: oral and palatal mucosa normal Eyes General Eye: normal appearance of both eyes Neck no lymphadenopathy, supple and no JVD Lymph Lymphatic: no lymphadenopathy noted Chest Chest Narrative: Port right upper chest access left upper With DSD Chest: symmetrical chest wall rise Resp clear to auscultation bilaterally Auscultation: diminished lung sounds bilateral and diffuse; Negative for rhonchior wheezes Cardio regular rate and regular rhythm Jugular Venous Distention: Negative for JVD GI soft to palpation, non-tender and non-distended; Negative for hepatosplenomegaly Back/Spine no thoracic nor lumbar tenderness Extremity no clubbing, cyanosis or edema Skin no rashes or lesions noted Skin Narrative: Vitiligo Neuro oriented x3, CN's II-XII intact bilaterally, moves all extremities and no focal motor deficits Speech: speech normal Gait (Neuro): normal gait Psych mental status grossly normal Coding Level of Care Code Off vis,est,level 4 Exam Problem Focused Diagnoses Local recurrence of malignant neoplasm of right lung C34.91 Laterality: right Small cell lung cancer, right upper lobe C34.11 Regional lymph node metastasis present C77.9 Malignant neoplasm metastatic to right lung C78.01 Laterality: right Encounter for antineoplastic chemotherapy and immunotherapy Z51.11; Z51.12 Assessment and Plan Assessment and Plan (1) Local recurrence of lung cancer: Status: Acute Qualifiers: Laterality: right Qualified Code(s): C34.91 - Malignant neoplasm of unspecified part of right bronchus or lung (2) Small cell lung cancer, right upper lobe: Status: Chronic (3) Regional lymph node metastasis present: Status: Chronic (4) Metastasis to lung: Status: Acute Qualifiers: Laterality: right Qualified Code(s): C78.01 - Secondary malignant neoplasm of right lung (5) Encounter for antineoplastic chemotherapy and immunotherapy: Status: Acute Orders: Orders CBC W/Diff, Automated 10 Days C34.11 - Malignant neoplasm of upper lobe, right bronchus or lung Basic Metabolic Profile (BMP) 10 Days C34.11 - Malignant neoplasm of upper lobe, right bronchus or lung Plan 69year-old female smoker with limited stage small cell lung cancer; IIIA (T1, N2, M0). Completed combined modality treatment with intent to cure February,- May 2022 Without grade 3 or 4 toxicities. [...] a new adjacent nodule. CT-guided biopsy confirmed recurrent small cell lung cancer. Restaging PET/CT September 2024 showed PET avid multiple nodules in the right lung upper and lower lobes with extension into the right hilum Chronic comorbid conditions: COPD, hypertension, chronic renal insufficiency, chronic GERD, active smoker Plan: Based on NCCN guidelines 1-systemic palliative first-line chemo immune therapy (induction 4 cycles of atezolizumab, carboplatin and etoposide to be followed by maintenance atezolizumab until progression) for extensive stage small cell lung cancer sinceher prior yuhaaviatam exposure was in 2021?early 2022 for limited stage disease. Supportive treatment with antiemetics, primary prophylaxis with growth factor (primary prophylaxis for the prevention of febrile neutropenia based upon Recommendations for the Use of WBC Growth Factors: [place] [employer] Clinical [employer] Clinical Practice Guideline Update. in patients who are at high risk onthe basis of age (>65) , medical history, disease stage and characteristics, myelotoxicity of the chemotherapy regimen, [ VANI Morales TJ, Ryley K, Fredy GH, Cali KR, Bert J, Neri SJ, Micah JM, Edgar DESAI, Freedom NB, Ginny CL, Farzaneh G, Steve JL, Mika AJ, Yogesh J Clin Oncol. 2015;33(28):3199. ] Labs reviewed with patient, CBC values several parameters for treatment. All the patient's questions and concerns were addressed to her satisfaction and she will commence with cycle 1 today. 2-restaging brain MRI is not necessary at this time in absence of symptoms and that she had a brain MRI in June 2024. Return to office in 10 to 14 days labs prior and on 10/29/2024 for? Cycle 2 carboplatin, etoposide, atezolizumab. Clinical Quality Measures Falls Risk Screening/Assistive Devices Have you fallen in the past year?: No 10/08/24 0958 <Electronically signed by Shavonne GRANT> Date _ Shavonne GRANT Cosigner Signature: Date (if applicable) CC: ~ [facility] Work Phone: 1(289) 484-463106-18-2025 Procedure note [facility] Medical Records Department [address] [place] [address] Operative Report 10/02/24 0944 MR#: [id number] Acct: [id number] Name: GABRIELLE RIOS Rep #:[id number] : 1955 69 From: Sugar Ramírez MD PCP: Dr. Lynda Alonso MD Status:REG SD C Location: [place] [address] Operative Report (Standard) Operative Information Date of Procedure: 10/02/24 Pre-Operative Diagnosis: z45.2, lung cancer Post-Operative Diagnosis: Same Surgery/Procedure Performed: Insert right IJ Port-A-Cath Use of fluoroscopy Use of ultrasound construction trades contractor: No Type of Anesthesia: Local MAC RN Documented Start/Stop Times: Operation Date: 10/02/24 08:45 Case Time Into Pre-Op 10/02/24 07:14 Anesthesia Start 10/02/24 08:59 Into Room 10/02/24 08:59 Out of Pre-Op 10/02/24 08:59 Procedure Start 10/02/24 09:12 Procedure End 10/02/24 09:34 Anesthesia End 10/02/24 09:43 Out of Room 10/02/24 09:43 Into Recovery 10/02/24 09:45 Procedure Start Time: 09:12 Procedure Stop Time: 09:34 Select all DRAINS/GRAFTS/IMPLANTS that apply: Implanted device Implanted device details: [employer] PowerPort isp M.R.I. 6Fr Lot [id number] Special Medications: Clindamycin 900 mg IV x 1 Estimated Blood Loss: < 10 cc Specimen collected: No Description of surgery: After informed consent was given, the patient was brought to the operating room and placed in the supine position. Appropriate time out protocol was followed. Patient was then given IV conscious sedation for anesthesia. The patient's right upper chest and neck were then prepped with a surgical skinpreparation and sterile surgical drapes were placed. After proper landmarks were ascertained, the skin at the upper right chest area was then infiltrated with 1:1 mixture of 1% lidocaine with epinephrine and 0.5% marcaine. A needle trocar was then inserted into the right internal jugular vein with ultrasound guidance-multiple vessels were viewed with u/s and the right IJ was chosen-- and there was good aspiration of venous blood. A wire was then threaded into the needle trocar and this was visualized under fluoroscopy to ensure that the wire was in the superior vena cava. Once this was done, then the needle trocar was removed. A small skin dank was made with an 11 blade knife at the wire entrance site. The dilator with the introducer sheath attached was then placed over the wire into the right internal jugular vein viathe Seldinger technique and this was visualized under fluoroscopy. The dilator and sheath were in proper position as visualized by fluoroscopy. A subcutaneous pocket was then created caudad to the catheter insertion site. Atransverse skin incision was made after the skin and subcutaneous tissues were infiltrated with local anesthetic. Blunt dissection was then used to create a space large enough for placement of the subcutaneous port. The catheter was thentunneled into the subcutaneous pocket. The wire and dilator were then removed. The catheter was then threaded into theintroducer sheath and was positioned with its tip at the junction of the superior vena cava and the right atrium as visualized under fluoroscopy. The excess catheter was transected. The catheter was then attached to the s ubcutaneous port using manufacturers guidelines. The catheter was flushed with a heparin saline mixture prior to placement. Hemostasis was carefully controlled with electrocautery. The port was sutured to the subcutaneous fasciausing 2-0 Vicryl suture at two sites. The port was then placed in the subcutaneous pocket. The incision were reapproximated with interrupted subdermal 3-0 vicryl sutures. The skin was reapproximated with 3-0 nylon suture in a interrupted fashion. Steristrips were used for reinforcement of the skin closure at IJ insertion siteand a sterile opsite dressings were applied. The patient tolerated the procedurewell. Surgical Findings: See operative report Complications Complications: No 10/02/24 1026 Cosigner Signature (if applicable): CC: Dr. Lynda Alonso MD; Dr. Sugar Ramírez MD~ Signed [facility]06-18-2025 History and physical note Author [facility] Note Date/Time October 02, 2024 8:08 am [facility] Medical Records Department [address] [place] [address] History & Physical Exam 10/02/24 0807 MR#: [id number] Acct: [id number] Name: GABRIELLE RIOS Rep #:[id number] : 1955 69 From: Sugar Ramírez MD PCP: Dr. Lynda Alonso MD Status:REG SD C Location: [place] [address] History and Physical Date of Admission: 10/02/24 Date of Service: 09/27/24 MR#: [id number] Acct: [id number] Name: GABRIELLE RIOS Rep #: [id number] : 1955 Provider: Dr. Sugar Ramírez MD Age/Sex: 69/F Location: [facility] Status: Signed Intake Vital Signs 09/24/2513:35 09/27/2508:09 Height 5 ft 5 in 5 ft 5 in Weight: 141 lb 8 oz 140 lb 2 oz BMI 23.5 23.3 BP 112/72 163/83 H Blood Pressure Location Lt brachial Rt brachial Position Sitting Sitting Respiration 16 18 Pulse 82 85 Pulse Source Monitor Monitor Temp 95.3 F L 96.0 F L Temp Source Temporal Pulse Oximetry (%) 98 100 Oxygen Delivery Method room air room air Intake Visit Reasons: PORT PLACEMENT Chief Complaint: Port Placement Research Instrumentation Technician Required: No Is patient in pain?: No Allergies amoxicillin (From Augmentin) Allergy (Intermediate, Verified 09/27/24 09:10) stomach pain clavulanic acid (From Augmentin) Allergy (Intermediate, Verified 09/27/24 09:10) stomach pain Sulfa (Sulfonamide Antibiotics) Allergy (Verified 09/27/24 09:10) Nausea Medications ?Medication ?Instructions ?Recorded ?Confirmed ?Type famotidine 20 mg tablet 20 mg PO QHS 10/26/23 09/27/24 History magnesium citrate 100 mg capsule 100 mg PO DAILY 11/30/23 09/27/24 Histor y atorvastatin 20 mg tablet (Lipitor) 20 mg PO QDAY #60 tabs 02/16/24 09/27/24 Rx Held on 09/03/24. Instructions: Ordered ondansetron 4 mg disintegrating 4 mg PO Q8H PRN PRN Nausea #10 tabs 04/1709/27/24 Rx tablet metoprolol succinate 50 mg 50 mg PO QDAY #90 tabs 05/21/24 09/27/24 Rx tablet,extended release 24 hr baclofen 5 mg tablet 5 mg PO 3XD PRN muscle spasm 08/29/24 History pregabalin 100 mg capsule (Lyrica) 100 mg PO BID 08/29/24 09/27/24 History oxycodone 5 mg capsule 5 mg PO BID 09/03/24 09/27/24 History Have you fallen in the past year?: No PFSH Medical History Metastasis to lung Vitiligo Local recurrence of lung cancer COVID [...] History Father Alcoholism High cholesterol Hypertension Alzheimer diseaseMother Alcoholism Anxiety Cancer unknown primary diagnosis High cholesterol HypertensionGrandfather AlcoholismGrandmother Alcoholism Cancer possibly had cancer but not confirmedSister Breast cancer, Onset Age: 60 High cholesterol HypertensionAunt Cancer pancreaticUncle Lung cancer Social History household members: significant other 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 Patient does have recurrent lung cancer after chemotherapy and radiation and port removal in 2022. ROS General General: No weight change, appetite, fatigue, colon cancer, breast cancer or weakness HEENT HEENT: No difficulty swallowing, eye injury, eye surgery, swollen glands or hoarseness Endo Endocrine: No thyroid disease, diabetes mellitus, thyroid cancer, Hair loss, heat intolerance or cold intolerance Skin Skin: No rash or changing moles Breast Breast: No left breast lump, right breast lump, nipple discharge, breast pain, abnormal mammogram, abnormal US or breast enlargement Musc Musculoskeletal: Yes back problems; No arthritis, rheumatoid arthritis, gout or joint pain Cardio Cardiovascular: No murmur, pacemaker, heart disease, atrial fibrillation, high blood pressure, heart attack, heart stent, palpitations, shortness of breath with exertion or chest pain Additional Details: Started on Metoprolol for tachycardia Psych Psychiatric: Yes anxiety; No depression or hearing voices Resp Respiratory: No shortness of breath, No sleep apnea, No cough, No COPD, No asthma, No emphysema and No wheezing Gastro Gastrointestinal: No abdominal pain, No nausea or vomiting, No diarrhea, No constipation, No blood in stool, Yes acid reflux, No hemorrhoids, No ulcers, No gallbladder problem and No black,tarry stools Additional Details: On Famotidine Augusto Hematologic: No blood thinners, No blood disorders, No bleeding, No anemia and No blood clots Neuro Neurologic: No system reviewed and no additional complaints, except as documented, No as per HPI, No abnormal gait, No abnormal hearing, No abnormal movements, No abnormal speech, No behavioral changes, No burning sensations, No confusion, No convulsions, No disequilibrium, No dizziness, No localized weakness, No frequent falls, No headache(s), No lack of coordination, No loss ofvision, No memory loss, Yes numbness, No other visual disturbances, No radicularpain, No restless legs, No sensory deficit, No syncope, Yes tingling, No tremor(s), No weakness and No other Exam Const General: cooperative, healthy appearing, comfortable and no acute distress Neck Neck: supple Chest Other: Normal inspection of upper chest, well-healed previous left chest port site Assessment and Plan Assessment and Plan (1) Encounter for insertion of venous access port: Status: Acute (2) Local recurrence of lung cancer: Status: Acute Qualifiers: Laterality: right Qualified Code(s): C34.91 - Malignant neoplasm of unspecified part of right bronchus or lung Plan I have discussed above with the patient- Port-a-Cath placement. Right IJ possible left Patient has been counseled as to the risks/benefits of the procedure. I have explained the risks of the surgery, including but not limited to: infection, bleeding, injury to any blood vessels/nerves, injury to lungs (such as pneumothorax or hemothorax and need for chest tube), not having any access, nonfunctioning of port due to thrombosis, infection of port, etc. the patient understands and agrees to proceed. I have answered all the patient's questions to the patient?s satisfaction and the patient has no further questions. Sugar Ramírez M.D. Pager: [phone] [facility] [address] [place] [address], Outpatient Pavilion, [address] [place] [address] Office: [phone] Coding Level of Care Code Off vis,est,level 3 Diagnoses Encounter for insertion of venous access port Z45.2 Local recurrence of malignant neoplasm of right lung C34.91 Laterality: right Clinical Quality Measures Falls Risk Screening/Assistive Devices Have you fallen in the past year?: No 09/27/24 1303 <Electronically signed by Sugar Ramírez MD> Date Sugar Ramírez MD 10/02/24 0808 <Electronically signed by Sugar Ramírez MD> Cosigner Signature (if applicable): CC: Dr. Lynda Alonso MD; Dr. Sugar Ramírez MD~ Signed ADDENDUM by Dr. Sugar Ramírez MD on 10/02/24 at 0808 Addendum I have examined the patient and the H&P has been reviewed. There are no clinicalchanges since date of exam. 10/02/24 0808<Electronically signed by Sugar Ramírez MD> Cosigner Signature (if applicable): cc: Dr. Lynda Alonso MD; Dr. Sugar Ramírez MD ~* Signed [facility] Work Phone: [phone]) 659-285506-18-2025 Radiology Diagnostic study note [facility] Imaging Services [address] [place] [address] Chest 1 View (Portable) MR#: [id number] Acct: [id number] Name: GABRIELLE RIOS Rep #: [id number] : 1955 F 69 From: Travon Alarcon MD PCP: Dr. Lynda Alonso MD Status: REG SD C Study:Chest 1 View (Portable) Date of Exam: 10/02/24 Exam# [id number] Ordering Dr: Sugar Ramírez MD PROCEDURE: CHEST 1 VIEW (PORTABLE) 10/02/2024 REASON FOR EXAM: Port placement. TECHNIQUE: Frontal view of the chest. COMPARISON: Prior study dated September 03, 2024. FINDINGS: Hardware: A right-sided port a catheter has been placed with the tip at the junction of the superior vena cava and right atrium. Heart: The heart size is normal. Lungs: Once again, there is evidence of increased markings in the right perihilar region and right upper lobe. The left lung is clear. Bones: Degenerative changes are identified within the thoracic spine. Other: RAD/Chest 1 View (Portable) IMPRESSION: The tip of the right port a catheter is at the junction of the superior vena cava and right atrium. Reading Location: [place] [address] CC: Dr. Lynda Alonso MD; Dr. Sugar Ramírez MD ~ Home Child Care Provider: Signed [facility]06-18-2025 Consult note Author Gomez [facility] Note Date/Time October 02, 2024 8:[address] [facility] Medical Records Department [address] [place] [address] Pre-Anesthesia Evaluation 10/02/24 0751 MR#: [id number] Acct: [id number] Name: GABRIELLE RIOS Rep #:[id number] : 1955 69 From: Gomez Anderson MD PCP: Dr. Lynda Alonso MD Status:REG SD C Y Race: C Location: [place] [address] ASA Classification* ASA Classification ASA Classification: 3 Assessment & Plan Anesthesia* Anesthesia Assessment Anesthesia Assessment: Discussed sedation and/or anesthesia options, risks, benefits, and alternatives with patient/parents/legal guardian/POA. Questions invited. The patient/parents/legal guardian/POA seems to understand and agrees to proceedwith anesthesia plan. Reviewed the physical assessment, medical history, allergy history and patient home medications list prior to surgery/procedure/anesthetic and documented any changes. Performed airway and anesthesia risk assessments. Anesthesia Type Anesthesia Type: MAC History Source History Obtained from:: Patient and Chart Anesthesia Focused Assessment* Temperature: 97.8 F Pulse Rate: 77 Blood Pressure: 122/81 Respiratory Rate: 18 Pulse Ox: 100 Oxygen Delivery Method: Room Air Airway Assessment Mouth opens: >3 cm Mallampati Score: IV Teeth Condition: Dentures (Patient has full upper and lower dentures.) Neck Range of motion (ROM): Full ROM Labs Anesthesia Preop lab: CBC WBC 8.8 K/mm3 (4.4-11.0) 09/11/24 13:01 09/11/24 RBC 4.78 M/mm3 (4.2-5.4) 09/11/24 13:01 09/11/24 Hgb 14.6 g/dL (12.0-15.0) 09/11/24 13:01 09/11/24 Hct 44.2 % (37-47) 09/11/24 13:01 09/11/24 Plt Count 244 K/mm3 (150-450) 09/11/24 13:01 09/11/24 CHEMISTRY Potassium 4.0 mmol/L (3.3-5.1) 09/11/24 13:01 09/11/24 Sodium 136 mmol/L (133-145) 09/11/24 13:01 09/11/24 Magnesium 2.2 mg/dL (1.5-2.2) 09/11/24 13:01 09/11/24 Phosphorus 3.3 mg/dL (2.5-4.9) 03/11/24 13:20 03/11/24 BUN 14 mg/dL (4-19) 09/11/24 13:01 09/11/24 Creatinine 0.97 mg/dL (0.70-1.20) 09/11/24 13:01 09/11/24 Glucose 149 mg/dL (70-99) H 09/11/24 13:01 09/11/24 TSH 2.390 uIU/mL (0.300-4.200) 09/11/24 13:01 08/16 12/09 COAG PT 12.0 SECONDS (11.7-14.9) 09/03/24 07:42 Pre-Assessment Diagnosis/Proposed Procedure Planned Operative Procedure(s): INSERTION VASCULAR PORT RIGHT Anesthesia History Anesthesia History - groundskeeping yardman: Anesthesia History - groundskeeping yardman Hx Hospitalization No 09/30/24 13:29 Any Problems With Anesthesia No 09/30/24 13:29 Cholinesterase deficiency No 09/30/24 13:29 You/Your Family Experience No 09/30/24 13:29 fever (hyperthermia) with Relationship Recent Exposure to Contagious No 10/02/24 07:40 Disease Does patient have nerve No 09/30/24 13:29 stimulator Patient instructed to have device shut off --Does patient have Pacemaker No 10/02/24 07:40 or ICD? When Was Last Pacemaker Check QUESTION #4 FULL TEXT: You/Your Family Experience fever (hyperthermia) with Anesthesia Last Oral Intake Last Oral intake: Last Oral Intake NPO since 07:00 10/02/24 07:40 Meds taken in AM with sips of Yes 10/02/24 07:40 water? Meds patient instructed to metoprolol, oxycodone 10/02/24 07:40 take am of surgery Any additional information?: Yes Meds taken in AM with sips of water?: Yes PONV PONV - groundskeeping yardman: PONV - groundskeeping yardman Female Yes 09/30/24 13:29 HX of Motion Sickness No 09/30/24 13:29 HX of N/V After Surgery No 09/30/24 13:29 Non-Smoker No 09/30/24 13:29 Duration of Surgery greater No 09/30/24 13:29 than 60 minutes Number of Risk Factors 1 09/30/24 13:29 PONV Score Low Risk 09/30/24 13:29 Height & Weight Height & Weight: Anesthesia: Height & Weight Height 5 ft 3 in 10/02/24 07:40 Weight: 63 kg 10/02/24 07:40 Body Mass Index (BMI) 24.5 10/02/24 07:40 Respiratory Assessment Respiratory Assessment - groundskeeping yardman: Respiratory Tract Infection Hx - groundskeeping yardman Hx Respiratory Tract Infection No 09/30/24 13:29 STOP Sleep Apnea STOP Sleep Apnea - groundskeeping yardman: STOP Sleep Apnea - groundskeeping yardman Hx Hypertension No 09/30/24 13:29 Hx Sleep Apnea No 09/30/24 13:29 CPAP No 04/12/22 08:32 BIPAP Do you snore loudly (louder No 09/30/24 13:29 than talking or can be heard Do you often feel tired/ No 09/30/24 13:29 fatigued/ sleepy during daytime? Has anyone observed you stop No 09/30/24 13:29 breathing during sleep? STOP Results Negative 09/30/24 13:29 QUESTION #5 FULL TEXT : Do you snore loudly (louder than talking or can be heard through closed doors)? 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 Specify any problems Hx of Preganancy in last 3 No 09/30/24 13:29 Months Nurse Filling Out Transfusion DSCHRIBER 09/30/24 13:29 & Questions: Date: 09/30/24 09/30/24 13:29 Time: 13:30 09/30/24 13:29 Patient unable to answer at this time (ie. confused, unrespo /Reproduction History /Reproductive History - groundskeeping yardman: /Reproductive Hx- groundskeeping yardman Hx Now No 09/30/24 13:29 Gestational Age (in weeks): EDC: Hx Hx Para Hx Section SAB No 09/30/24 13:29 Active Medications Active Medications: Current Medications Generic Name Dose Route Start Last Admin Trade Name Freq PRN Reason Stop Dose Admin Clindamycin Phosphate 900 mg in 50 mls @ 75 mls/hr 10/02/24 08:45 Cleocin IV 10/02/24 09:24 INTRAOP ONE Lactated Ringer's 1,000 mls @ 15 mls/hr 10/02/24 07:45 10/02/24 07:46 IV 15 mls/hr .Q48H KARLOS Administration PFSH Medical History Loss of hearing History of steroid therapy Arthritis Easy bruising Back pain History of ulceration Shortness of breath on exertion History of irregular heartbeat History of echocardiogram Metastasis to lung Vitiligo Local recurrence of lung cancer Generalized weakness Low back pain Encounter for chemotherapy management Anemia Tachycardia Thrombocytopenia Constipation Cancer Encounter for education Chronic renal failure Regional lymph node metastasis present Wears glasses Wears dentures Post-menopausal Depression Anxiety Alcohol use Gastric reflux Smoker Cardiology follow-up encounter Vitamin D deficiency Home Medications ?Medication ?Instructions ?Recorded ?Last Taken ?Type famotidine 20 mg tablet 20 mg PO QHS 10/26/23 Unknow n History magnesium citrate 100 mg capsule 100 mg PO DAILY 11/29 Unknown History metoprolol succinate 50 mg 50 mg PO QDAY #90 tabs 02/0 08/0910/02/24 04:30 Rx tablet,extended release 24 hr oxycodone 5 mg capsule 5 mg PO TID 09/03/24 5 07:00 History lidocaine-prilocaine 2.5 %-2.5 % 1 applic topical ONCE PRN port 09/30/24 Unknown Rx topical cream access 30 days #30 grams ondansetron 8 mg disintegrating 8 mg PO Q8H PRN nausea and 09/30/24 Unknown Rx tablet vomiting #30 tabs pregabalin 75 mg capsule 75 mg PO BID 09/30/24 Unknow n History Allergy/AdvReac Type Severity Reaction Status Date / Time amoxicillin (From Augmentin) Allergy Intermediate stomach Verified 10/02/24 07:39 pain clavulanic acid (From Allergy Intermediate stomach Verified 10/02/24 07:39 Augmentin) pain Sulfa (Sulfonamide Allergy Nausea Verified 10/02/24 07:39 Antibiotics) Family History Father Alcoholism High cholesterol Hypertension Alzheimer disease Mother Alcoholism Anxiety Cancer unknown primary diagnosis High cholesterol Hypertension Grandfather Alcoholism Grandmother Alcoholism Cancer possibly had cancer but not confirmed Sister Breast cancer, Onset Age: 60 High cholesterol Hypertension Aunt Cancer pancreatic Uncle Lung cancer Surgical History History of vascular access device Hx of surgical procedure History of lung biopsy Hx of colonoscopy History of esophagogastroduodenoscopy (EGD) history of left eye surgery Social History household members: significant other 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 10/02/24 08 <Electronically signed by Gomez rasheed MD> Date _ Gomez Anderson MD Cosigner Signature: Date CC: ~ Signed [facility] Work Phone: [phone]) 482-588306-18-2025 Consult note [facility] Medical Records Department [address] [place] [address] Anesthesia Postop Eval I 10/02/24 0948 MR#: [id number] Acct: [id number] Name: GABRIELLE RIOS MATTHEW Rep #:[id number] : 1955 69 From: Dana STANTON PCP: Dr. Lynda Alonso MD Status:REG SD C Y Race: C Location: [place] [address] Anesthesia: Postop Eval I Current Vital Signs Temperature: 97.9 F Pulse Rate: 80 Blood Pressure: 88/63 Respiratory Rate: 14 Pulse Ox: 95 Oxygen Delivery Method: Room Air Assessment Airway patent: Yes Spontaneous unlabored respirations: Yes Mental status: Awake and Calm nausea: No Vomiting: No Anesthesia Complication: No Fluid Hydration Crystalloid volume administer (ml): 200 Total IV fluid infused: 200 Progress Note Anesthesia document: Postop Eval 1 completed: Yes 10/02/24 0949 CUTTING PRESSMAN> Date _ Dana Dotterer CUTTING PRESSMAN Cosigner Signature: CC: ~ Signed [facility]06-18-2025 Discharge summary [facility] Medical Records Department [address] [place] [address] Instructions for Home/Discharge Instructions 10/02/24 0947 MR#: [id number] Acct: [id number] Name: GABRIELLE RIOS Rep #:[id number] : 1955 69 From: Sugar Ramírez MD PCP: Dr. Lynda Alonso MD Status:REG SD C Discharge Instructions Procedure Port-A-Cath Diet Discharge Diet: Light diet - advance as tolerated Activity May shower in (days): 5 (Keep port site clean and dry x5 days. Neck incision okay to get wet after 1 day. Okay to lower shower and upper sponge bath. OR okay to taper off port site with a Ziploc bag to shower) Lifting Restrictions: No lifting > 15 pounds for 3 days with the arm on the sideof the port Dressing / Incision Call your doctor if your incision/area has: Continuous Slow Oozing, Sudden Increased Bleeding, Increased Pain/ Swelling, Increased Redness, Foul Smelling Discharge and Swelling at the incision site Call your doctor if you observe: Fever of 101 or Higher Change Dressing in: 2 days (2-3 days- port site; ok to remove neck opsite in 1 day) Follow Up Care Please Follow Up With: Sugar Ramírez MD When: In 10 days for permanent suture removal?call office for appointment Test Results: Test results from this visit will be discussed in further detail at your follow- up appointment, if applicable. Discharge Plan Admission Attending Provider: Sugar Ramírez Primary Care Provider: Lynda Alonso Instructions Print Language: Jamaican Discharge Orders/Prescriptions Prescriptions: Continued famotidine 20 mg tablet 20 mg PO QHS magnesium citrate 100 mg capsule 100 mg PO DAILY ondansetron 8 mg tablet,disintegrating 8 mg PO Q8H PRN (Reason: nausea and vomiting) Qty: 30 2RF lidocaine-prilocaine 2.5-2.5 % cream 1 applic topical ONCE PRN (Reason: port access) 30 Days Qty: 30 2RF pregabalin 75 mg capsule 75 mg PO BID oxycodone 5 mg capsule 5 mg PO TID metoprolol succinate 50 mg tablet extended release 24 hr 50 mg PO QDAY Qty: 90 3RF Referrals / Follow Up: Lynda Alonso MD [Primary Care Provider] - Disposition Disposition (needs filled in before D/C Order can be placed): Home, Self Care 10/02/24 0948Sugar Ramírez MD CC: Dr. Lynda Alonso MD ~ Signed [facility]06-18-2025 History and physical note [facility] Medical Records Department [address] [place] [address] History & Physical Exam 10/02/24 0807 MR#: [id number] Acct: [id number] Name: GABRIELLE RIOS Rep #:[id number] : 1955 69 From: Sugar Ramírez MD PCP: Dr. Lynda Alonso MD Status:REG SD C Location: [place] [address] History and Physical Date of Admission: 10/02/24 Date of Service: 09/27/24 MR#: [id number] Acct: [id number] Name: GABRIELLE RIOS Rep #: [id number] : 1955 Provider: Dr. Sugar Ramírez MD Age/Sex: 69/F Location: [facility] Status: Signed Intake Vital Signs 09/24/2513:35 09/27/2508:09 Height 5 ft 5 in 5 ft 5 in Weight: 141 lb 8 oz 140 lb 2 oz BMI 23.5 23.3 BP 112/72 163/83 H Blood Pressure Location Lt brachial Rt brachial Position Sitting Sitting Respiration 16 18 Pulse 82 85 Pulse Source Monitor Monitor Temp 95.3 F L 96.0 F L Temp Source Temporal Pulse Oximetry (%) 98 100 Oxygen Delivery Method room air room air Intake Visit Reasons: PORT PLACEMENT Chief Complaint: Port Placement Research Instrumentation Technician Required: No Is patient in pain?: No Allergies amoxicillin (From Augmentin) Allergy (Intermediate, Verified 09/27/24 09:10) stomach pain clavulanic acid (From Augmentin) Allergy (Intermediate, Verified 09/27/24 09:10) stomach pain Sulfa (Sulfonamide Antibiotics) Allergy (Verified 09/27/24 09:10) Nausea Medications ?Medication ?Instructions ?Recorded ?Confirmed ?Type famotidine 20 mg tablet 20 mg PO QHS 10/26/23 09/27/24 History magnesium citrate 100 mg capsule 100 mg PO DAILY 11/30/23 09/27/24 Histor y atorvastatin 20 mg tablet (Lipitor) 20 mg PO QDAY #60 tabs 02/16/24 09/27/24 Rx Held on 09/03/24. Instructions: MD Ordered ondansetron 4 mg disintegrating 4 mg PO Q8H PRN PRN Nausea #10 tabs 04/1709/27/24 Rx tablet metoprolol succinate 50 mg 50 mg PO QDAY #90 tabs 05/21/24 09/27/24 Rx tablet,extended release 24 hr baclofen 5 mg tablet 5 mg PO 3XD PRN muscle spasm 08/29/24 History pregabalin 100 mg capsule (Lyrica) 100 mg PO BID 08/29/24 09/27/24 History oxycodone 5 mg capsule 5 mg PO BID 09/03/24 09/27/24 History Have you fallen in the past year?: No PFSH Medical History Metastasis to lung Vitiligo Local recurrence of lung cancer COVID [...] History Father Alcoholism High cholesterol Hypertension Alzheimer diseaseMother Alcoholism Anxiety Cancer unknown primary diagnosis High cholesterol HypertensionGrandfather AlcoholismGrandmother Alcoholism Cancer possibly had cancer but not confirmedSister Breast cancer, Onset Age: 60 High cholesterol HypertensionAunt Cancer pancreaticUncle Lung cancer Social History household members: significant other 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 Patient does have recurrent lung cancer after chemotherapy and radiation and port removal in 2022. ROS General General: No weight change, appetite, fatigue, colon cancer, breast cancer or weakness HEENT HEENT: No difficulty swallowing, eye injury, eye surgery, swollen glands or hoarseness Endo Endocrine: No thyroid disease, diabetes mellitus, thyroid cancer, Hair loss, heat intolerance or cold intolerance Skin Skin: No rash or changing moles Breast Breast: No left breast lump, right breast lump, nipple discharge, breast pain, abnormal mammogram, abnormal US or breast enlargement Musc Musculoskeletal: Yes back problems; No arthritis, rheumatoid arthritis, gout or joint pain Cardio Cardiovascular: No murmur, pacemaker, heart disease, atrial fibrillation, high blood pressure, heart attack, heart stent, palpitations, shortness of breath with exertion or chest pain Additional Details: Started on Metoprolol for tachycardia Psych Psychiatric: Yes anxiety; No depression or hearing voices Resp Respiratory: No shortness of breath, No sleep apnea, No cough, No COPD, No asthma, No emphysema andNo wheezing Gastro Gastrointestinal: No abdominal pain, No nausea or vomiting, No diarrhea, No constipation, No blood in stool, Yes acid reflux, No hemorrhoids, No ulcers, No gallbladder problem and No black,tarry stools Additional Details: On Famotidine Augusto Hematologic: No blood thinners, No blood disorders, No bleeding, No anemia and No blood clots Neuro Neurologic: No system reviewed and no additional complaints, except as documented, No as per HPI, No abnormal gait, No abnormal hearing, No abnormal movements, No abnormal speech, No behavioral changes, No burning sensations, No confusion, No convulsions, No disequilibrium, No dizziness, No localized weakness, No frequent falls, No headache(s), No lack of coordination, No loss ofvision, No memoryloss, Yes numbness, No other visual disturbances, No radicularpain, No restless legs, No sensory deficit, No syncope, Yes tingling, No tremor(s), No weakness and No other Exam Const General: cooperative, healthy appearing, comfortable and no acute distress Neck Neck: supple Chest Other: Normal inspection of upper chest, well-healed previous left chest port site Assessment and Plan Assessment and Plan (1) Encounter for insertion of venous access port: Status: Acute (2) Local recurrence of lung cancer: Status: Acute Qualifiers: Laterality: right Qualified Code(s): C34.91 - Malignant neoplasm of unspecified part of right bronchus or lung Plan I have discussed above with the patient- Port-a-Cath placement. Right IJ possible left Patient has been counseled as to the risks/benefits of the procedure. I have explained the risks ofthe surgery, including but not limited to: infection, bleeding, injury to any blood vessels/nerves,injury to lungs (such as pneumothorax or hemothorax and need for chest tube), not having any access, nonfunctioning of port due to thrombosis, infection of port, etc. the patient understands and agrees to proceed. I have answered all the patient's questions to the patient?s satisfaction and the patient has no further questions. Sugar Ramírez M.D. Pager: [phone] [facility] [address] [place] [address], [facility], [address] [place] [address] Office: [phone] Coding Level of Care Code Off vis,est,level 3 Diagnoses Encounter for insertion of venous access port Z45.2 Local recurrence of malignant neoplasm of right lung C34.91 Laterality: right Clinical Quality Measures Falls Risk Screening/Assistive Devices Have you fallen in the past year?: No 09/27/24 1303 Date Sugar Ramírez MD 10/02/24 0808 Cosigner Signature (if applicable): CC: Dr. Lynda Alonso MD; Dr. Sugar Ramírez MD~ Signed ADDENDUM by Dr. Sugar Ramírez MD on 10/02/24 at 0808 Addendum I have examined the patient and the H&P has been reviewed. There are no clinicalchanges since date of exam. 10/02/24 0808 Cosigner Signature (if applicable): cc: Dr. Lynda Alonso MD; Dr. Sugar Ramírez MD ~* Signed [facility]18[facility] Medical Records Department [address] [place] [address] Pre-Anesthesia Evaluation 10/02/24 0751 MR#: [id number] Acct: [id number] Name: GABRIELLE RIOS Rep #:[id number] : 1955 69 From: Gomez Anderson MD PCP: Dr. Lynda Alonso MD Status:REG SD C Y Race: C Location: [place] [address]- ASA Classification* ASA Classification ASA Classification: 3 Assessment & Plan Anesthesia* Anesthesia Assessment Anesthesia Assessment: Discussed sedation and/or anesthesia options, risks, benefits, and alternatives with patient/parents/legal guardian/POA. Questions invited. The patient/parents/legal guardian/POA seems to understand and agrees to proceedwith anesthesia plan. Reviewed the physical assessment, medical history, allergy history and patient home medications list prior to surgery/procedure/anesthetic and documented any changes. Performed airway and anesthesia risk assessments. Anesthesia Type Anesthesia Type: MAC History Source History Obtained from:: Patient and Chart Anesthesia Focused Assessment* Temperature: 97.8 F Pulse Rate: 77 Blood Pressure: 122/81 Respiratory Rate: 18 Pulse Ox: 100 Oxygen Delivery Method: Room Air Airway Assessment Mouth opens: >3 cm Mallampati Score: IV Teeth Condition: Dentures (Patient has full upper and lower dentures.) Neck Range of motion (ROM): Full ROM Labs Anesthesia Preop lab: CBC WBC 8.8 K/mm3 (4.4-11.0) 09/11/24 13:01 09/11/24 RBC 4.78 M/mm3 (4.2-5.4) 09/11/24 13:01 09/11/24 Hgb 14.6 g/dL (12.0-15.0) 09/11/24 13:01 09/11/24 Hct 44.2 % (37-47) 09/11/24 13:01 09/11/24 Plt Count 244 K/mm3 (150-450) 09/11/24 13:01 09/11/24 CHEMISTRY Potassium 4.0 mmol/L (3.3-5.1) 09/11/24 13:01 09/11/24 Sodium 136 mmol/L (133-145) 09/11/24 13:01 09/11/24 Magnesium 2.2 mg/dL (1.5-2.2) 09/11/24 13:01 09/11/24 Phosphorus 3.3 mg/dL (2.5-4.9) 03/11/24 13:20 03/11/24 BUN 14 mg/dL (4-19) 09/11/24 13:01 09/11/24 Creatinine 0.97 mg/dL (0.70-1.20) 09/11/24 13:01 09/11/24 Glucose 149 mg/dL (70-99) H 09/11/24 13:01 09/11/24 TSH 2.390 uIU/mL (0.300-4.200) 09/11/24 13:01 08/16 12/09 COAG PT 12.0 SECONDS (11.7-14.9) 09/03/24 07:42 Pre-Assessment Diagnosis/Proposed Procedure Planned Operative Procedure(s): INSERTION VASCULAR PORT RIGHT Anesthesia History Anesthesia History - groundskeeping yardman: Anesthesia History - groundskeeping yardman Hx Hospitalization No 09/30/24 13:29 Any Problems With Anesthesia No 09/30/24 13:29 Cholinesterase deficiency No 09/30/24 13:29 You/Your Family Experience No 09/30/24 13:29 fever (hyperthermia) with Relationship Recent Exposure to Contagious No 10/02/24 07:40 Disease Does patient have nerve No 09/30/24 13:29 stimulator Patient instructed to have device shut off --Does patient have Pacemaker No 10/02/24 07:40 or ICD? When Was Last Pacemaker Check QUESTION #4 FULL TEXT: You/Your Family Experience fever (hyperthermia) with Anesthesia Last Oral Intake Last Oral intake: Last Oral Intake NPO since 07:00 10/02/24 07:40 Meds taken in AM with sips of Yes 10/02/24 07:40 water? Meds patient instructed to metoprolol, oxycodone 10/02/24 07:40 take am of surgery Any additional information?: Yes Meds taken in AM with sips of water?: Yes PONV PONV - groundskeeping yardman: PONV - groundskeeping yardman Female Yes 09/30/24 13:29 HX of Motion Sickness No 09/30/24 13:29 HX of N/V After Surgery No 09/30/24 13:29 Non-Smoker No 09/30/24 13:29 Duration of Surgery greater No 09/30/24 13:29 than 60 minutes Number of Risk Factors 1 09/30/24 13:29 PONV Score Low Risk 09/30/24 13:29 Height & Weight Height & Weight: Anesthesia: Height & Weight Height 5 ft 3 in 10/02/24 07:40 Weight: 63 kg 10/02/24 07:40 Body Mass Index (BMI) 24.5 10/02/24 07:40 Respiratory Assessment Respiratory Assessment - groundskeeping yardman: Respiratory Tract Infection Hx - groundskeeping yardman Hx Respiratory Tract Infection No 09/30/24 13:29 STOP Sleep Apnea STOP Sleep Apnea - groundskeeping yardman: STOP Sleep Apnea - groundskeeping yardman Hx Hypertension No 09/30/24 13:29 Hx Sleep Apnea No 09/30/24 13:29 CPAP No 04/12/22 08:32 BIPAP Do you snore loudly (louder No 09/30/24 13:29 than talking or can be heard Do you often feel tired/ No 09/30/24 13:29 fatigued/ sleepy during daytime? Has anyone observed you stop No 09/30/24 13:29 breathing during sleep? STOP Results Negative 09/30/24 13:29 QUESTION #5 FULL TEXT : Do you snore loudly (louder than talking or can be heard through closeddoors)? 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 Specify any problems Hx of Preganancy in last 3 No 09/30/24 13:29 Months Nurse Filling Out Transfusion DSCHRIBER 09/30/24 13:29 & Questions: Date: 09/30/24 09/30/24 13:29 Time: 13:30 09/30/24 13:29 Patient unable to answer at this time (ie. confused, unrespo /Reproduction History /Reproductive History - groundskeeping yardman: /Reproductive Hx- groundskeeping yardman Hx Now No 09/30/24 13:29 Gestational Age (in weeks): EDC: Hx Hx Para Hx Section SAB No 09/30/24 13:29 Active Medications Active Medications: Current Medications Generic Name Dose Route Start Last Admin Trade Name Freq PRN Reason Stop Dose Admin Clindamycin Phosphate 900 mg in 50 mls @ 75 mls/hr 10/02/24 08:45 Cleocin IV 10/02/24 09:24 INTRAOP ONE Lactated Ringer's 1,000 mls @ 15 mls/hr 10/02/24 07:45 10/02/24 07:46 IV 15 mls/hr .Q48H KARLOS Administration PFSH Medical History Loss of hearing History of steroid therapy Arthritis Easy bruising Back pain History of ulceration Shortness of breath on exertion History of irregular heartbeat History of echocardiogram Metastasis to lung Vitiligo Local recurrence of lung cancer Generalized weakness Low back pain Encounter for chemotherapy management Anemia Tachycardia Thrombocytopenia Constipation Cancer Encounter for education Chronic renal failure Regional lymph node metastasis present Wears glasses Wears dentures Post-menopausal Depression Anxiety Alcohol use Gastric reflux Smoker Cardiology follow-up encounter Vitamin D deficiency Home Medications ?Medication ?Instructions ?Recorded ?Last Taken ?Type famotidine 20 mg tablet 20 mg PO QHS 10/26/23 Unknow n History magnesium citrate 100 mg capsule 100 mg PO DAILY 11/29 Unknown History metoprolol succinate 50 mg 50 mg PO QDAY #90 tabs 02/0 08/0910/02/24 04:30 Rx tablet,extended release 24 hr oxycodone 5 mg capsule 5 mg PO TID 09/03/24 5 07:00 History lidocaine-prilocaine 2.5 %-2.5 % 1 applic topical ONCE PRN port 09/30/24 Unknown Rx topical cream access 30 days #30 grams ondansetron 8 mg disintegrating 8 mg PO Q8H PRN nausea and 09/30/24 Unknown Rx tablet vomiting #30 tabs pregabalin 75 mg capsule 75 mg PO BID 09/30/24 Unknow n History Allergy/AdvReac Type Severity Reaction Status Date / Time amoxicillin (From Augmentin) Allergy Intermediate stomach Verified 10/02/24 07:39 pain clavulanic acid (From Allergy Intermediate stomach Verified 10/02/24 07:39 Augmentin) pain Sulfa (Sulfonamide Allergy Nausea Verified 10/02/24 07:39 Antibiotics) Family History Father Alcoholism High cholesterol Hypertension Alzheimer disease Mother Alcoholism Anxiety Cancer unknown primary diagnosis High cholesterol Hypertension Grandfather Alcoholism Grandmother Alcoholism Cancer possibly had cancer but not confirmed Sister Breast cancer, Onset Age: 60 High cholesterol Hypertension Aunt Cancer pancreatic Uncle Lung cancer Surgical History History of vascular access device Hx of surgical procedure History of lung biopsy Hx of colonoscopy History of esophagogastroduodenoscopy (EGD) history of left eye surgery Social History household members: significant other 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 10/02/24 0802 kathya MCGARRY> Date _ Gomez Anderson MD Cosigner Signature: Date CC: ~ Signed [facility]06-16-2025 Evaluation note* Diagnosis Onset Date Resolution Status Admit Date Encounter for education acute J [facility] 2024 2:59pm Local recurrence of lung cancer chronic September 30, 2024 2:59pm Metastasis to lung chronic September 152024 2:59pm 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 September 30, 2024 2:59pm Small cell lung cancer, righ t upper lobe chronic September 30, 2024 2:59pm Encounter for insertion of venous access port acute October 04 1:59pm Encounter for antineoplastic chemotherapy and immunotherapy acute J une 2024 8:15am Local recurrence of lung cancer chronic October 08, 2024 8:15am Metastasis to lung chronic September 162024 8:15am 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 October 08, 2024 8:15am Small cell lung cancer, righ t upper lobe chronic October 08, 2024 8:15am Local recurrence of lung cancer chronic October 16, 2024 2 :28pm Metastasis to lung chronic October 162024 2:28pm 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 October 16, 2024 2 :28pm Small cell lung cancer, righ t upper lobe chronic October 16, 2024 2 :28pm Local recurrence of lung cancer chronic November 05, 2024 7:52am Metastasis to lung chronic October 162024 7:52am 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 November 05, 2024 7:52am Small cell lung cancer, righ t upper lobe chronic November 05, 2024 7:52am Metastasis to lung chronic November 26, 2024 8:15am 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 November 26 8:15am Small cell lung cancer, righ t upper lobe chronic November 26 8:15am Metastasis to lung chronic 2024 7:50am 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 December 17 7:50am Small cell lung cancer, righ t upper lobe chronic December 17 7:50am Encounter for antineoplastic immunotherapy acute January 07, 2025 9:28am Metastasis to lung chronic Sept2024 9:28am 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 January 07, 2025 9:28am Small cell lung cancer, righ t upper lobe chronic January 07, 2025 9:28am Tachycardia acute December 9:01am Local recurrence of lung cancer chronic January 23 1:08pm [facility] Work Phone: 1(954) 215-887206-10-2025 Evaluation note* Diagnosis Onset Date Resolution Status Admit Date Local recurrence of lung cancer chronic September 24, 2024 2:18pm Metastasis to lung chronic September 152024 2:18pm 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 September 24, 2024 2:18pm Small cell lung cancer, righ t upper lobe chronic September 24, 2024 2:18pm Encounter for insertion of venous access port acute September 27 8:43am Local recurrence of lung cancer chronic September 27, 2024 8:43am Encounter for education acute [facility] 2024 2:59pm Local recurrence of lung cancer chronic September 30, 2024 2:59pm Metastasis to lung chronic September 152024 2:59pm 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 September 30, 2024 2:59pm Small cell lung cancer, righ t upper lobe chronic September 30, 2024 2:59pm Encounter for insertion of venous access port acute October 04 1:59pm Encounter for antineoplastic chemotherapy and immunotherapy acute J 2024 8:15am Local recurrence of lung cancer chronic October 08, 2024 8:15am Metastasis to lung chronic September 162024 8:15am 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 October 08, 2024 8:15am Small cell lung cancer, righ t upper lobe chronic October 08, 2024 8:15am Local recurrence of lung cancer chronic October 16, 2024 2 :28pm Metastasis to lung chronic October 162024 2:28pm 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 October 16, 2024 2 :28pm Small cell lung cancer, righ t upper lobe chronic October 16, 2024 2 :28pm Local recurrence of lung cancer chronic November 05, 2024 7:52am Metastasis to lung chronic October 162024 7:52am 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 November 05, 2024 7:52am Small cell lung cancer, righ t upper lobe chronic November 05, 2024 7:52am Metastasis to lung chronic November 26, 2024 8:15am 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 November 26 8:15am Small cell lung cancer, righ t upper lobe chronic November 26 8:15am Metastasis to lung chronic 2024 7:50am 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 December 17 7:50am Small cell lung cancer, righ t upper lobe chronic December 17 7:50am Encounter for antineoplastic immunotherapy acute January 07, 2025 9:28am Metastasis to lung chronic Septem 2024 9:28am 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 January 07, 2025 9:28am Small cell lung cancer, righ t upper lobe chronic January 07, 2025 9:28am Tachycardia acute December 9:01am [facility] Work Phone: 1(418) 787-853405-28-2025 [facility] [place] [address] OFFICE VISIT Date of Service: 09/11/24 1339 MR#: [id number] Acct: [id number] Name: GABRIELLE RIOS Rep #: [id number] : 1955 From: Chadwick kellogg MD Age/Sex: 69/F Location: [facility] Status: Signed HPI Subjective Date of Service [...] Block J CK7 (OV-TL12/30) positive, focal CK8 (45kjfiS32) positive, focal CK20 (KS20.8) negative 34BE12 (34BE12) negative CD56 (123C3.D5) positive Chromo (LK2H10) positive, focal Synapto (polyclonal) positive, rare NSE Neuron Specific Enolase positive TTF-1 (8G7G3/1) negative Napsin A (Rabbit Polyclonal) positive, dim CK5-6 (D5 & 1684) negative P40 (BC28) negative Block K CK7 (OV-TL12/30) negative CK8 (75xdmpI17) positive, focal CK20 (KS20.8) negative 34BE12 (34BE12) [...] fulfill quantitative criteria for viable neoplasm (Larisa looney al, Journal of Nuclear Medicine 31:1950, 1989). 3. Facilitated radiopharmaceutical concentration subtly remaining in [...] of small cell lung carcinoma are noted (V72-4950,C22-459). The TTF-1 was tested and also negative [...] the SCLC recurrence with an SBRT technique. 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 Instructions: MD Ordered pregabalin 100 mg capsule (Lyrica) 100 [...] combined modality treatment with intent to cure February,- May 2022 Without grade 3 or 4 toxicities. After completion of definitive treatment she continued to smoke. On surveillance following conclusion of definitive treatment imaging July 2023 shows a subtle subcentimeter right upper lobe nodule too small to characterize and within the irradiated field was evidence for surrounding bronchiectasis. A follow-up CT of the chest October 2023 shows the nodule slightlybigger. PET/CT in October 2023 was concerning for [...] and pelvis April 2024 also did not showevidence to suggest metastatic disease to bone. Imaging of the chest June 2024 shows a new right upper lobe subcentimeter nodule that was followedwith a short interval CT chest August 2024 [...] impression and plan discussed Chadwick Munson MD Hip Hop [employer], [facility] Divisions of Medical Oncology & Hematology Department of Internal Medicine [place] [address] This note was generated using a voice [...] in the past year?: No 09/11/24 1411 cale MCGARRY> Date _ Chadwick Munson MD Cosigner Signature: Date (if applicable) CC: Dr. Lynda Alonso MD; Dr. Aly Gupta, DO ~ [facility]05-28-2025 Progress note Author Chadwick Munson [facility] Note Date/Time September 11, 2024 2:11p m [facility] [address] [place] [address] OFFICE VISIT Date of Service: 09/11/24 1339 MR#: [id number] Acct: [id number] Name: GABRIELLE RIOS Rep #: [id number] : 1955 From: Chadwick kellogg MD Age/Sex: 69/F Location: [place] Status: Signed HPI Subjective Date of Service [...] Block J CK7 (OV-TL12/30) positive, focal CK8 (97rivdK34) positive, focal CK20 (KS20.8) negative 34BE12 (34BE12) negative CD56 (123C3.D5) positive Chromo (LK2H10) positive, focal Synapto (polyclonal) positive, rare NSE Neuron Specific Enolase positive TTF-1 (8G7G3/1) negative Napsin A (Rabbit Polyclonal) positive, dim CK5-6 (D5 & 1684) negative P40 (BC28) negative Block K CK7 (OV-TL12/30) negative CK8 (13tmskB35) positive, focal CK20 (KS20.8) negative 34BE12 (34BE12) [...] fulfill quantitative criteria for viable neoplasm (Larisa looney al, Journal of Nuclear Medicine 31:1950, 1989). 3. Facilitated radiopharmaceutical concentration subtly remaining in [...] viable neoplasm. Histopathologic analysis is recommended. (Larisa looney al, Journal of Nuclear Medicine 43:302 P, 2002). 2. Overall, compared to the previous FDG [...] of small cell lung carcinoma are noted (V41-6113,C22-459). The TTF-1 was tested and also negative [...] the SCLC recurrence with an SBRT technique. 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 Instructions: MD Ordered ondansetron 4 mg disintegrating 4 mg PO Q8H PRN PRN Na usea #10 tabs 04/29/24 09/03/24 Rx tablet metoprolol succinate 50 mg 50 mg PO QDAY #90 tabs 02/0 08/0909/03/24 Rx tablet,extended release 24 hr baclofen 5 mg tablet 5 mg PO 3XD PRN muscle spasm 08/29/24 09/03/24 History oxycodone-acetaminophen 5 mg-325 1 tab PO BID PRN pain 08/29/24 09/03/24 History mg tablet (Percocet) Held on 09/03/24. Instructions: MD Ordered pregabalin 100 mg capsule (Lyrica) 100 [...] combined modality treatment with intent to cure February,- May 2022 Without grade 3 or 4 toxicities. [...] impression and plan discussed Chadwick Munson MD Hip Hop Dancer, [facility] Divisions of Medical Oncology & Hematology Department of Internal Medicine [place] [address] This note was generated using a voice [...] Alonso MD; Dr. Aly Gupta DO ~ [facility] Work Phone: [phone] Radiology Diagnostic study note [facility] Imaging Services [address] [place] [address] Chest Insp/Exp 2 View MR#: [id number] Acct: [id number] Name: GABRIELLE RIOS Rep #: [id number] : 1955 F 69 From: Travon Alarcon MD PCP: Dr. Lynda Alonso MD Status: REG CL I Study:Chest Insp/Exp 2 View Date of Exam: 09/03/24 Exam# [id number] Ordering Dr: Manny Angel i, MD EXAM: [...] post right lung biopsy radiographs. Reading Location: [place] [address] CC: Dr. Lynda Alonso MD; Dr. Manny Alarcon MD ~ Home Child Care Provider: Signed [facility]05-20-2025 Radiology Diagnostic study note [facility] Imaging Services [address] [place] [address] Biopsy/Inj or Needle Placement MR#: [id number] Acct: [id number] Name: GABRIELLE RIOS Rep #: [id number] : 1955 F 69 From: Travon Alarcon MD PCP: Dr. Lynda Alonso MD Status: REG CL I Study:Biopsy/Inj or Needle Placement Date of Exam: 09/03/24 Exam# [id number] Ordering Dr: Chadwick Munson MD PROCEDURE: BIOPSY/INJ [...] well. No immediate complication noted. Reading Location: [place] [address] CC: Dr. Lynda Alonso MD; Dr. Chadwick Munson MD ~ Home Child Care Provider: Signed [facility]05-20-2025 Radiology Diagnostic study note [facility] Imaging Services [address] [place] [address] Chest Insp/Exp 2 View MR#: [id number] Acct: [id number] Name: GABRIELLE RIOS Rep #: [id number] : 1955 F 69 From: Travon Alarcon MD PCP: Dr. Lynda Alonso MD Status: REG CL I Study:Chest Insp/Exp 2 View Date of Exam: 09/03/24 Exam# [id number] Ordering Dr: Manny Angel i, MD EXAM: [...] following the right lung biopsy. Reading Location: [facility] CC: Dr. Lynda Alonso MD; Dr. Manny Alarcon MD ~ Home Child Care Provider: Signed [facility]05-14-2025 Evaluation note* Diagnosis Onset Date Resolution Status [...] cancer acut e September 27, 2024 8:43am Encounter for education acute J [facility] 2024 2:59pm Local recurrence of lung cancer acut e September 30, 2024 2:59pm Metastasis to lung acute September 152024 2:59pm 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 September 30, 2024 2:59pm Small cell lung cancer, righ t upper lobe chronic September 30, 2024 2:59pm Encounter for insertion of venous access port acute October 04 1:59pm Encounter for antineoplastic chemotherapy and immunotherapy acute J [facility] 2024 8:15am Local recurrence of lung cancer acut e October 08, 2024 8:15am Metastasis to lung acute September 162024 8:15am 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 October 08, 2024 8:15am Small cell lung cancer, righ t upper lobe chronic October 08, 2024 8:15am Local recurrence of lung cancer acut e October 16, 2024 2:28pm Metastasis to lung acute October 162024 2:28pm 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 October 16, 2024 2 :28pm Small cell lung cancer, righ t upper lobe chronic October 16, 2024 2 :28pm [facility] Work Phone: 1(218) 556-894105-14-2025 Evaluation note* Diagnosis Onset Date Resolution Status [...] cancer acut e September 27, 2024 8:43am Encounter for education acute J [facility] 2024 2:59pm Local recurrence of lung cancer acut e September 30, 2024 2:59pm Metastasis to lung acute September 152024 2:59pm 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 September 30, 2024 2:59pm Small cell lung cancer, righ t upper lobe chronic September 30, 2024 2:59pm Encounter for insertion of venous access port acute October 04 1:59pm Encounter for antineoplastic chemotherapy and immunotherapy acute J une 2024 8:15am Local recurrence of lung cancer acut e October 08, 2024 8:15am Metastasis to lung acute September 162024 8:15am 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 October 08, 2024 8:15am Small cell lung cancer, righ t upper lobe chronic October 08, 2024 8:15am Local recurrence of lung cancer acut e October 16, 2024 2:28pm Metastasis to lung acute October 162024 2:28pm 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 October 16, 2024 2 :28pm Small cell lung cancer, righ t upper lobe chronic October 16, 2024 2 :28pm Local recurrence of lung cancer acut e November 05, 2024 7:52am Metastasis to lung acute October 162024 7:52am 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 November 05, 2024 7:52am Small cell lung cancer, righ t upper lobe chronic November 05, 2024 7:52am Local recurrence of lung cancer acut e November 26, 2024 8:15am Metastasis to lung acute November 26, 2024 8:15am 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 November 26 8:15am Small cell lung cancer, righ t upper lobe chronic November 26 8:15am [facility] Work Phone: 1(836) 269-448005-14-2025 Evaluation note* Diagnosis Onset Date Resolution Status Admit Date Local recurrence of lung cancer [employer] attendant aime August 28, 2024 8:49am Smoker chronic August 28, 2024 8:49am Stage 1 mild COPD by GOLD classification chronic August 28, 2024 8 :49am Local recurrence of lung cancer [employer] stores attendant iame August 29, 2024 11:58am 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 August 29, 2024 1 1:58am Small cell lung cancer, righ t upper lobe chronic August 29, 2024 1 1:58am Local recurrence of lung cancer [employer] attendant aime September 11, 2024 1:34pm 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 September 11, 2024 1 :34pm Small cell lung cancer, righ t upper lobe chronic September 11, 2024 1 :34pm Local recurrence of lung cancer [employer] stores attendant aime September 24, 2024 2:18pm Metastasis to lung chronic September 152024 2:18pm 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 September 24, 2024 2:18pm Small cell lung cancer, righ t upper lobe chronic September 24, 2024 2:18pm Encounter for insertion of venous access port acute September 27 8:43am Local recurrence of lung cancer central [employer] attendant aime September 27, 2024 8:43am Encounter for education acute J [facility] 2024 2:59pm Local recurrence of lung cancer central stores attendant aime September 30, 2024 2:59pm Metastasis to lung chronic September 152024 2:59pm 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 September 30, 2024 2:59pm Small cell lung cancer, righ t upper lobe chronic September 30, 2024 2:59pm Encounter for insertion of venous access port acute October 04 1:59pm Encounter for antineoplastic chemotherapy and immunotherapy acute J [facility] 2024 8:15am Local recurrence of lung cancer [employer] stores attendant aime October 08, 2024 8:15am Metastasis to lung chronic September 162024 8:15am 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 October 08, 2024 8:15am Small cell lung cancer, righ t upper lobe chronic October 08, 2024 8:15am Local recurrence of lung cancer [employer] attendant aime October 16, 2024 2:28pm Metastasis to lung chronic October 162024 2:28pm 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 October 16, 2024 2 :28pm Small cell lung cancer, righ t upper lobe chronic October 16, 2024 2 :28pm Local recurrence of lung cancer [employer] attendant aime Nati 22nd, 2025 7:52am Metastasis to lung chronic October 162024 7:52am 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 November 05, 2024 7:52am Small cell lung cancer, righ t upper lobe chronic November 05, 2024 7:52am Metastasis to lung chronic November 26, 2024 8:15am 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 November 26 8:15am Small cell lung cancer, righ t upper lobe chronic November 26 8:15am [facility] Work Phone: 1(923) 286-743805-14-2025 Evaluation note* Diagnosis Onset Date Resolution Status Admit Date Local recurrence of lung cancer chronic August 28, 2024 8 :49am Smoker chronic August 28, 2024 8:49am Stage 1 mild COPD by GOLD classification chronic August 28, 2024 8 :49am Local recurrence of lung cancer chronic August 29, 2024 1 1:58am 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 August 29, 2024 1 1:58am Small cell lung cancer, righ t upper lobe chronic August 29, 2024 1 1:58am Local recurrence of lung cancer chronic September 11, 2024 1 :34pm 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 September 11, 2024 1 :34pm Small cell lung cancer, righ t upper lobe chronic September 11, 2024 1 :34pm Local recurrence of lung cancer chronic September 24, 2024 2:18pm Metastasis to lung chronic September 152024 2:18pm 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 September 24, 2024 2:18pm Small cell lung cancer, righ t upper lobe chronic September 24, 2024 2:18pm Encounter for insertion of venous access port acute September 27 8:43am Local recurrence of lung cancer chronic September 27, 2024 8:43am Encounter for education acute J [facility] 2024 2:59pm Local recurrence of lung cancer chronic September 30, 2024 2:59pm Metastasis to lung chronic September 152024 2:59pm 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 September 30, 2024 2:59pm Small cell lung cancer, righ t upper lobe chronic September 30, 2024 2:59pm Encounter for insertion of venous access port acute October 04 1:59pm Encounter for antineoplastic chemotherapy and immunotherapy acute J [facility] 2024 8:15am Local recurrence of lung cancer chronic October 08, 2024 8:15am Metastasis to lung chronic September 162024 8:15am 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 October 08, 2024 8:15am Small cell lung cancer, righ t upper lobe chronic October 08, 2024 8:15am Local recurrence of lung cancer chronic October 16, 2024 2 :28pm Metastasis to lung chronic October 162024 2:28pm 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 October 16, 2024 2 :28pm Small cell lung cancer, righ t upper lobe chronic October 16, 2024 2 :28pm Local recurrence of lung cancer chronic November 05, 2024 7:52am Metastasis to lung chronic October 162024 7:52am 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 November 05, 2024 7:52am Small cell lung cancer, righ t upper lobe chronic November 05, 2024 7:52am Metastasis to lung chronic November 26, 2024 8:15am 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 November 26 8:15am Small cell lung cancer, righ t upper lobe chronic November 26 8:15am Metastasis to lung chronic 2024 7:50am 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 December 17, 025 7:50am Small cell lung cancer, righ t upper lobe chronic December 17, 025 7:50am [facility] Work Phone: 1(466) 929-309605-13-2025 Radiology Diagnostic study note [facility] Imaging Services [address] [place] [id number] Chest AND Abd W/ Contrast MR#: [id number] Acct: [id number] Name: GABRIELLE RIOS Rep #: [id number] : 1955 F 69 From: Travon Alarcon MD PCP: Dr. Lynda Alonso MD Status: REG CL I Study:CT Chest AND Abd W/ Contrast Date of Ex am: 08/26/24 Exam# [id number] Ordering Dr: Chadwick Munson MD PROCEDURE: CT [...] of the examination is unchanged. Reading Location: [id number] CC: Dr. Lynda Alonso MD; Dr. Chadwick Munson MD ~ Home Child Care Provider: Signed [facility]03-14-2025 Procedure notey [facility] Pulmonary Services/Neurology [address] [place] [address] MR#: [id number] Acct: [id number] Name: GABRIELLE RIOS Rep #:[id number] : 1955 68 From: Corey Damian DO Referring Dr: Gaye López PSYCHIATRY TEACHER PSYCHIATRY TEACHER-C Status: REG CLI Location: PSN Date: Sex: F C PSN 6 Minute Walk Test 6 Minute Walk Test 6 Minute Walk Test: 6 Minute Walk Test PSN:6-Minute Walk Test Start: 06/24/24 12:37 Freq: Status: Active Protocol: RESP.6MINW Document 06/24/24 12:38 [facility] (Rec: 06/24/24 12:43 [facility] [id number]) 6 Minute Walk Test Date Performed 06/24/24 [...] Corey Damian DO CC: ~ Date Dictated: 06/28/24 1206 Date Transcribed: 06/28/241205 Home Child Care Provider: Dr. Corey Damian DO Signed [facility]03-05-2025 Evaluation note* Diagnosis Onset Date Resolution [...] upper lobe chronic September 24, 2024 2:18pm [facility] Work Phone: 1(162) 594-919103-05-2025 Evaluation note* Diagnosis Onset Date Resolution Status [...] upper lobe chronic September 24, 2024 2:18pm [facility] Work Phone: 1(635) 369-935503-05-2025 Evaluation note* Diagnosis Onset Date Resolution Status [...] upper lobe chronic September 30, 2024 2:59pm [facility] Work Phone: 1(120) 534-573403-05-2025 Evaluation note* Diagnosis Onset Date Resolution Status [...] cancer acut e September 27, 2024 8:43am Encounter for education acute J 2024 2:59pm Local recurrence of lung cancer acut e September 30, 2024 2:59pm Metastasis to lung acute September 152024 2:59pm 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 September 30, 2024 2:59pm Small cell lung cancer, righ t upper lobe chronic September 30, 2024 2:59pm [facility] Work Phone: 1(484) 722-570803-05-2025 Evaluation note* Diagnosis Onset Date Resolution Status [...] lung cancer, righ t upper lobe chronic May 28th, 2025 1 :34pm Local recurrence of lung cancer [...] cancer acut e September 27, 2024 8:43am Encounter for education acute J [facility] 2024 2:59pm Local recurrence of lung cancer acut e September 30, 2024 2:59pm Metastasis to lung acute September 152024 2:59pm 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 September 30, 2024 2:59pm Small cell lung cancer, righ t upper lobe chronic September 30, 2024 2:59pm Encounter for insertion of venous access port acute October 04 1:59pm Encounter for antineoplastic chemotherapy and immunotherapy acute J [facility] 2024 8:15am Local recurrence of lung cancer acut e October 08, 2024 8:15am Metastasis to lung acute September 162024 8:15am 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 October 08, 2024 8:15am Small cell lung cancer, righ t upper lobe chronic October 08, 2024 8:15am [facility] Work Phone: 1(371) 660-989003-04-2025 Radiology Diagnostic study note [facility] Imaging Services [address] [place], [place] [address] CT Chest AND Abd W/ Contrast MR#: [id number] Acct: [id number] Name: GABRIELLE RIOS Rep #: [id number] : 1955 F 68 From: Travon Alarcon MD PCP: Dr. Lynda Alonso MD Status: REG CL I Study:CT Chest AND Abd W/ Contrast Date of Ex am: 06/18/24 Exam# [id number] Ordering Dr: Chadwick Munson MD PROCEDURE: CT [...] use of iterative reconstruction technique). Reading Location: [place] CC: Dr. Lynda Alonso MD; Dr. Chadwick Munson MD ~ Home Child Care Provider: Signed [facility]02-04-2025 Evaluation note* Diagnosis Onset Date Resolution [...] lobe chronic August 29, 2024 1 1:58am [facility] Work Phone: 1([phone]) 296-302802-04-2025 Evaluation note* Diagnosis Onset Date Resolution Status [...] lobe chronic September 11, 2024 1 :34pm [facility] Work Phone: 1([phone]) 100-487601-23-2025 Evaluation note* Diagnosis Onset Date Resolution Status [...] lung cancer acute June 24, 2024 12:53pm [facility] [employer] [facility] Work Phone: 1([phone]) [phone] Evaluation note* Diagnosis Onset Date Resolution Status [...] lobe chronic August 29, 2024 1 1:58am [facility] [employer] Work Phone: 1(293) 192-989401-02-2025 Evaluation note* Diagnosis Onset Date Resolution Status Admit Date Degenerative disc disease, lumbar acute April 18 2:28pm Lumbar radiculopathy acute 2024 2:28pm Scoliosis acute April 18 2:28pm Degenerative disc disease, lumbar acute May [...] lung cancer acute June 24, 2024 12:53pm [facility] Work Phone: 1(116) 338-770811-25-2024 Evaluation note* Diagnosis Onset Date Resolution Status [...] lung cancer acute June 24, 2024 12:53pm [facility] Work Phone: 1(360) [phone] Procedure [facility] Consult note Author Dana Rick [facility] Note Date/Time October 02, 2024 9:[address] [facility] Medical Records Department [address] [place] [address] Anesthesia Postop Eval I 10/02/24 0948 MR#: [id number] Acct: [id number] Name: GABRIELLE RIOS Rep #:[id number] : 1955 69 From: Dana STANTON PCP: Dr. Lynda Alonso MD Status:REG SD C Y Race: C Location: [place] [address] Anesthesia: Postop Eval I Current Vital Signs Temperature: 97.9 F Pulse Rate: 80 Blood Pressure: 88/63 Respiratory Rate: 14 Pulse Ox: 95 Oxygen Delivery Method: Room Air Assessment Airway patent: Yes Spontaneous unlabored respirations: Yes Mental status: Awake and Calm nausea: No Vomiting: No Anesthesia Complication: No Fluid Hydration Crystalloid volume administer (ml): 200 Total IV fluid infused: 200 Progress Note Anesthesia document: Postop Eval 1 completed: Yes 10/02/2449 <Electronically signed by Dana Rick CRNA> Date _ Dana Rick CRNA Cosigner Signature: Date CC: ~ Signed [facility] Work Phone: Discharge summary Author Sugar Ramírez [facility] Note Date/Time October 02, 2024 9:48 am [facility] Medical Records Department [address] [place] [address] Instructions for Home/Discharge Instructions 10/02/2447 MR#: [id number] Acct: [id number] Name: GABRIELLE RIOS Rep #:[id number] : 1955 69 From: Sugar Ramírez MD PCP: Dr. Lynda Alonso MD Status:REG SD C Discharge Instructions Procedure Port-A-Cath Diet Discharge Diet: Light diet - advance as tolerated Activity May shower in (days): 5 (Keep port site clean and dry x5 days. Neck incision okay to get wet after 1 day. Okay to lower shower and upper sponge bath. OR okay to taper off port site with a Ziploc bag to shower) Lifting Restrictions: No lifting > 15 pounds for 3 days with the arm on the sideof the port Dressing / Incision Call your doctor if your incision/area has: Continuous Slow Oozing, Sudden Increased Bleeding, Increased Pain/ Swelling, Increased Redness, Foul Smelling Discharge and Swelling at the incision site Call your doctor if you observe: Fever of 101 or Higher Change Dressing in: 2 days (2-3 days- port site; ok to remove neck opsite in 1 day) Follow Up Care Please Follow Up With: Sugar Ramírez MD When: In 10 days for permanent suture removal?call office for appointment Test Results: Test results from this visit will be discussed in further detail at your follow- up appointment, if applicable. Discharge Plan Admission Attending Provider: Sugar Ramírez Primary Care Provider: Lynda Alonso Instructions Print Language: Jamaican Discharge Orders/Prescriptions Prescriptions: Continued famotidine 20 mg tablet 20 mg PO QHS magnesium citrate 100 mg capsule 100 mg PO DAILY ondansetron 8 mg tablet,disintegrating 8 mg PO Q8H PRN (Reason: nausea and vomiting) Qty: 30 2RF lidocaine-prilocaine 2.5-2.5 % cream 1 applic topical ONCE PRN (Reason: port access) 30 Days Qty: 30 2RF pregabalin 75 mg capsule 75 mg PO BID oxycodone 5 mg capsule 5 mg PO TID metoprolol succinate 50 mg tablet extended release 24 hr 50 mg PO QDAY Qty: 90 3RF Referrals / Follow Up: Lynda Alonso MD [Primary Care Provider] - Disposition Disposition (needs filled in before D/C Order can be placed): Home, Self Care 10/02/24 0910<Electronically signed by Sugar Ramírez MD>Sugar Ramírez MD CC: Dr. Lynda Alonso MD ~ Signed [facility] Work Phone: Evaluation note* Diagnosis Onset Date Resolution Status Dyspnea acute LAD (lymphadenopathy), mediastinal acute Mass of lung acute LAD (lymphadenopathy), mediastinal acute Mass of lung acute [facility] Work Phone: Evaluation note* Diagnosis Onset Date Resolution Status Dyspnea acute LAD (lymphadenopathy), mediastinal acute Mass of lung acute LAD (lymphadenopathy), mediastinal acute Mass of lung acute Small cell lung cancer, right upper lobe acute [facility] Work Phone: Evaluation note* Diagnosis Onset [...] cell lung cancer, right upper lobe acute [facility] Work Phone: evaluation note* Diagnosis Onset [...] or management of vascular access device acute [facility] Work Phone: evaluation note* Diagnosis Onset [...] cancer, right upper lobe acute Thrombocytopenia acute [facility] Work Phone: Evaluation note* Diagnosis Onset [...] cell lung cancer, right upper lobe acute [facility] Work Phone: Evaluation note* Diagnosis Onset [...] cell lung cancer, right upper lobe acute [facility] Work Phone: Evaluation note* Diagnosis Onset [...] cell lung cancer, right upper lobe acute [facility] Work Phone: Evaluation note* Diagnosis Onset Date Resolution Status Small cell lung cancer, right upper lobe acute Regional lymph node metastasis present chronic Small cell lung cancer, 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, right upper lobe acute COPD (chronic obstructive pulmonary disease) chronic Tachycardia acute Small cell lung cancer, right upper lobe acute Regional lymph node metastasis present [facility] Work Phone: Evaluation note* Diagnosis Onset Date Resolution Status Small cell lung cancer, 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, right upper lobe acute COPD (chronic obstructive pulmonary disease) chronic Tachycardia acute Small cell lung cancer, right upper lobe acute Regional lymph node metastasis present [facility] Work Phone: Evaluation note* Diagnosis Onset Date Resolution Status Tachycardia acute Small cell lung cancer, right upper lobe acute Regional lymph node metastasis present chronic Small cell lung cancer, right upper lobe acute [facility] Work Phone: Evaluation note* Diagnosis Onset Date Resolution Status Small cell lung cancer, 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, right upper lobe acute Regional lymph node metastasis present chronic Small cell lung cancer, right upper lobe acute Stage 1 mild COPD by GOLD classification acute Chronic diastolic CHF (congestive heart failure) [facility] Work Phone: Evaluation note* Diagnosis Onset Date Resolution Status Small cell lung cancer, 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, right upper lobe acute Regional lymph node metastasis present chronic Small cell lung cancer, right upper lobe acute Stage 1 mild COPD by GOLD classification acute Chronic diastolic CHF (congestive heart failure) chronic Small cell lung cancer, right upper lobe acute [facility] Work Phone: Evaluation note* Diagnosis Onset Date Resolution Status Small cell lung cancer, right upper lobe acute Encounter for adjustment or management of vascular access device acute Small cell lung cancer, 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, right upper lobe acute Regional lymph node metastasis present chronic Tachycardia acute [facility] Work Phone: Evaluation note* Diagnosis Onset Date Resolution Status Encounter for adjustment or management of vascular access device acute Small cell lung cancer, 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, right upper lobe acute Regional lymph node metastasis present chronic Tachycardia acute [facility] Work Phone: Evaluation note* Diagnosis Onset Date Resolution Status Small cell lung cancer, right upper lobe acute Regional lymph node metastasis present chronic Tachycardia acute Small cell lung cancer, right upper lobe acute [facility] Work Phone: Evaluation note* Diagnosis Onset Date Resolution Status Encounter for adjustment or management of vascular access device acute Small cell lung cancer, 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, right upper lobe acute Regional lymph node metastasis present chronic Tachycardia acute Small cell lung cancer, right upper lobe acute [facility] Work Phone: Hospital Discharge instructionsAmbulatory Orders* Cardiology Location: None Selected [facility] Work Phone: Hospital Discharge instructionsAmbulatory Orders* Dermatology Location: None Selected [facility] Work Phone: Progress note Author Shavonne Blanchard [facility] Note Date/Time January 07, 2025 11:18am [facility] [address] [place] [address] OFFICE VISIT Date of Service: 01/07/25 0959 MR#: [id number] Acct: [id number] Name: GABRIELLE RIOS Rep #: [id number] : 1955 From: Shavonne Lepe PSYCHIATRY TEACHER PSYCHIATRY TEACHER-C Age/Sex: 69/F Location: [facility] Status: Signed HPI Subjective Date of Service 01/07/25 Chief Complaint SCLC on treatment History of Present Illness 69-year-old female, smoker with a past medical history [...] Block J CK7 (OV-TL12/30) positive, focal CK8 (12udbrQ70) positive, focal CK20 (KS20.8) negative 34BE12 (34BE12) negative CD56 (123C3.D5) positive Chromo (LK2H10) positive, focal Synapto (polyclonal) positive, rare NSE Neuron Specific Enolase positive TTF-1 (8G7G3/1) negative Napsin A (Rabbit Polyclonal) positive, dim CK5-6 (D5 & 1684) negative P40 (BC28) negative Block K CK7 (OV-TL12/30) negative CK8 (65lnqoY03) positive, focal CK20 (KS20.8) negative 34BE12 (34BE12) [...] et al, Journal of Nuclear Medicine 31:1950, 1989). 3. Facilitated radiopharmaceutical concentration subtly remaining in [...] of small cell lung carcinoma are noted ([id number],C22-459). The TTF-1 was tested and also negative in the C22-459 specimen. September 17, 2024 PET/CT restaging: IMPRESSION: FDG avid- Hypermetabolic multiple lung nodules seen within the right upper lobe and also the superior segment of the right lower lobe, some extending to the right hilum, highly concerning for malignancy. Treatment summary and response: * Carboplatin etoposide [...] the SCLC recurrence with an SBRT technique. * Carboplatin, etoposide and atezolizumab first-line for metastatic October 08, 2024 Interval History The patient is presenting to clinic for an evaluation anticipating she will begin maintenance atezolizumab. + Fatigue and daytime somnolence ongoing. She cites analgesia and night time sleep disturbance as factors. Activity limited by chronic back pain. Pain management plans another caudal injection pending insurance, Dr Montanez. [facility] Medical History (Updated 01/07/25 @ 10:23 by Shavonne Blanchard PSYCHIATRY TEACHER, PSYCHIATRY TEACHER-C) Encounter for antineoplastic immunotherapy UTI (urinary tract infection) Dark urine Fatigue Encounter for antineoplastic chemotherapy and immunotherapy Loss of hearing History of steroid therapy Arthritis Easy bruising Back pain History of ulceration Shortness of breath on exertion History of irregular heartbeat History of echocardiogram Metastasis to lung Vitiligo Local recurrence of lung cancer Generalized weakness Low back pain Encounter for chemotherapy management Anemia Tachycardia Thrombocytopenia Constipation Cancer Encounter for education Chronic renal failure Regional lymph node metastasis present Wears glasses Wears dentures Post-menopausal Depression Anxiety Alcohol use Gastric reflux Smoker Cardiology follow-up encounter Vitamin D deficiency Surgical History History of vascular access device [...] members: significant other 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, 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 Smoking Status: Current every day smoker (Patient smoked today.) Tobacco: How many years used: 50 second hand exposure: Yes alcohol intake: former year quit: 2014 details: quit 7 years ago 2014 substance use type: does not use diet: other caffeine: Yes Type: coffee Number of servings: 3 what type of physical activity do you participate in: walking frequency: 1-2 times per week ROS ROS Narrative Negative except as documented in the interval HPI Intake Vital Signs 12/17/24 08:57 01/07/25 10:00 01/07/25 10:18 Height 5 ft 5 in 5 ft 5 in 5 ft 5 in Weight: 141 lb 7 oz BMI 23.5 BP 111/69 Blood Pressure Location Lt brachial Position Sitting Respiration 18 Pulse 76 Pulse Source Monitor Temp 98.1 F Temperature Source Temporal Artery Pulse Oximetry (%) 100 Oxygen Delivery Method room air Intake Is patient in pain?: Yes (back ) Pain scale (1-10): 7 Allergies amoxicillin (From Augmentin) Allergy (Intermediate, Verified 01/07/25 10:05) stomach pain clavulanic acid (From Augmentin) Allergy (Intermediate, Verified 01/07/25 10:05) stomach pain Sulfa (Sulfonamide Antibiotics) Allergy (Verified 01/07/25 10:05) Nausea Medications ?Medication ?Instructions ?Recorded ?Confirmed ?Type magnesium citrate 100 mg capsule 100 mg PO DAILY 11/2901/07/25 History metoprolol succinate 50 mg 50 mg PO QDAY #90 tabs 08/0901/07/25 Rx tablet,extended release 24 hr lidocaine-prilocaine 2.5 %-2.5 % 1 applic topical ONCE PRN port 09/30/24 01/07/25 Rx topical cream access 30 days #30 grams ondansetron 8 mg disintegrating 8 mg PO Q8H PRN nausea and 09/30/24 01/07/25 Rx tablet vomiting #30 tabs pregabalin 100 mg capsule 100 mg PO QHS 10/08/2401/07 History pregabalin 50 mg capsule 50 mg PO QDAY 10/08/2401/07 History omeprazole 20 mg capsule,delayed 20 mg PO QDAY 5 01/07/25 History release MAGIC MOUTH WASH (BMX) 180 mL 15 ml buccal Q6H PRN jeimy n #180 mL 12/04/24 01/07/25 Rx suspension oxycodone 5 mg capsule 5 mg PO .qid 12/17/24 History linaclotide 290 mcg capsule 290 mcg PO QAM 01/07/25 History (Linzess) Have you fallen in the past year?: No Central Venous Access Central Venous Access: Yes Port/PICC: Port Laboratory Tests 12/17/24 01/07/25 07:59 09:40 WBC 15.8 H 12.6 H Hgb 11.9 L 10.5 L Hct 35.9 L 30.7 L Plt Count 237 230 Absolute Neuts (auto) 11.8 H 9.4 H Sodium 138 Potassium 4.1 Chloride 105 Carbon Dioxide 21.5 BUN 10 Creatinine 0.79 Glucose 122 H Calcium 8.9 Total Bilirubin 0.41 AST 17 ALT 12 Alkaline Phosphatase 88 Albumin 4.1 TSH 2.070 Free T4 1.00 Exam Physical Exam Narrative ECOG 1 Const alert, oriented x3 and average body habitus General Appearance: cooperative and anxious HEENT normocephalic Face and Sinus: normal facial exam Mouth: oral and palatal mucosa normal Eyes General Eye: normal appearance of both eyes Neck no lymphadenopathy, supple and no JVD Lymph Lymphatic: no lymphadenopathy noted Chest Chest: symmetrical chest wall rise Resp clear to auscultation bilaterally Auscultation: diminished lung sounds bilateral and diffuse; Negative for rhonchior wheezes Cardio regular rate and regular rhythm Jugular Venous Distention: Negative for JVD GI soft to palpation, non-tender and non-distended; Negative for hepatosplenomegaly Back/Spine no thoracic nor lumbar tenderness Extremity no clubbing, cyanosis or edema Skin no rashes or lesions noted Skin Narrative: Vitiligo Neuro oriented x3, CN's II-XII intact bilaterally, moves all extremities and no focal motor deficits Speech: speech normal Gait (Neuro): normal gait Psych mental status grossly normal Appearance: grossly normal Mood & Affect: anxious Coding Level of Care Code Off vis,est,level 4 Exam Problem Focused Diagnoses Small cell lung cancer, right upper lobe C34.11 Regional lymph node metastasis present C77.9 Malignant neoplasm metastatic to right lung C78.01 Laterality: right Encounter for antineoplastic immunotherapy Z51.12 Assessment and Plan Assessment and Plan (1) Small cell lung cancer, right upper lobe: Status: Chronic (2) Regional lymph node metastasis present: Status: Chronic (3) Metastasis to lung: Status: Chronic Qualifiers: Laterality: right Qualified Code(s): C78.01 - Secondary malignant neoplasm of right lung (4) Encounter for antineoplastic immunotherapy: Status: Acute Plan 69 year-old female smoker initially presented with limited stage small cell lungcancer; IIIA (T1, N2, M0). Completed combined modality treatment with intent to cure February,- May 2022 Without grade 3 or 4 toxicities. [...] a new adjacent nodule. CT-guided biopsy confirmed recurrent small cell lung cancer. Restaging PET/CT September 2024 showed PET avid multiple nodules in the right lung upper and lower lobes with extension into the right hilum. Completed first line systemic therapy for metastatic disease with carboplatin, etoposide and atezolizumab October 08, 2024- December 17, 2024. Tolerated with no grade 3 or 4 toxicities Chronic comorbid conditions: COPD, hypertension, chronic renal insufficiency, chronic GERD, active smoker Plan: Based on NCCN guidelines 1- Commence with maintenance atezolizumab until progression 2-elective imaging January 2025- Scheduled for CT C/A and MRI brain [facility] on 01/20/25. RTO on 01/28/25 for ?c6 atezo and review scans. Clinical Quality Measures Falls Risk Screening/Assistive Devices Have you fallen in the past year?: No 01/07/25 1208 <Electronically signed by Shavonne whipple NP PSYCHIATRY TEACHER-C> Date _ Shavonne Blanchard NP PSYCHIATRY TEACHER-C Cosigner Signature: Date (if applicable) CC: Dr. Mario Montanez DO; Dr. Lynda Alonso MD ~ [facility] Work Phone: Progress note Author Gabriele Yolanda [facility] Note Date/Time January 10, 2025 9:43am [facility] [address] [place], [place] [address] OFFICE VISIT Date of Service: 01/10/25 MR#: [id number] Acct: [id number] Name: GABRIELLE RIOS Rep #: [id number] : 1955 Provider: Dr. Ilir Guerrero MD Age/Sex: 69/F Location: [facility] Status: Signed HPI HPI History of Present Illness Details: 69-year-old lady with stage IIIa small cell lung cancer who completed combined modality for treatment for the above with medication and radiation therapy. Shehad been noted to be tachycardic before and after her treatment. She says that she was put on beta-melida by her primary physician and has experienced some dizziness when she gets up quickly from the seated position. She has never hadany syncopal spells her hemoglobin has been normal and TSH has also been normal. Previous EKG that had been done demonstrated sinus rhythm and sinus tachycardiawith rates in the 90s to 120s. Her physical exam here today demonstrates clearlung shaw regular rate and rhythm no pedal edema electrocardiogram was reviewed. Intake Vital Signs 11/26/24 09:27 01/07/25 10:18 01/10/25 09:13 01/10/25 09:20 Height 5 ft 5 in 5 ft 5 in 5 ft 5 in Weight: 138 lb BP 122/67 H Blood Pressure Location Lt brachial Position Sitting Respiration 18 Pulse 81 Pulse Source Monitor Temp 96.8 F L Temperature Source Temporal Artery Pulse Oximetry (%) 98 Oxygen Delivery Method room air Intake Visit Reasons: 6 M Research Instrumentation Technician Required: No Accompanied by: Self Is patient in pain?: Yes (Back pain radiating to sacrum ) Pain scale (1-10): 8 Allergies amoxicillin (From Augmentin) Allergy (Intermediate, Verified 01/10/25 09:08) stomach pain clavulanic acid (From Augmentin) Allergy (Intermediate, Verified 01/10/25 09:08) stomach pain Sulfa (Sulfonamide Antibiotics) Allergy (Verified 01/10/25 09:08) Nausea Medications ?Medication ?Instructions ?Recorded ?Confirmed ?Type metoprolol succinate 50 mg 50 mg PO QDAY #90 tabs 02/0 08/0901/07/25 Rx tablet,extended release 24 hr lidocaine-prilocaine 2.5 %-2.5 % 1 applic topical ONCE PRN port 09/30/24 01/07/25 Rx topical cream access 30 days #30 grams ondansetron 8 mg disintegrating 8 mg PO Q8H PRN nausea and 09/30/24 01/07/25 Rx tablet vomiting #30 tabs pregabalin 100 mg capsule 100 mg PO QHS 10/08/2401/07 History pregabalin 50 mg capsule 50 mg PO QDAY 10/08/2401/07 History MAGIC MOUTH WASH (BMX) 180 mL 15 ml buccal Q6H PRN jeimy n #180 mL 12/04/24 01/07/25 Rx suspension oxycodone 5 mg capsule 5 mg PO .qid 12/17/24 History linaclotide 290 mcg capsule 290 mcg PO QAM 01/07/25 History (Linzess) famotidine 20 mg tablet (Acid 20 mg PO QDAY 01/10/25 0 01/10/25 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)) Have you fallen in the past year?: No PFSH Medical History Encounter for antineoplastic immunotherapy UTI (urinary tract infection) Dark urine Fatigue Encounter for antineoplastic chemotherapy and immunotherapy Loss of hearing History of steroid therapy Arthritis Easy bruising Back pain History of ulceration Shortness of breath on exertion History of irregular heartbeat History of echocardiogram Metastasis to lung Vitiligo Local recurrence of lung cancer Generalized weakness Low back pain Encounter for chemotherapy management Anemia Tachycardia Thrombocytopenia Constipation Cancer Encounter for education Chronic renal failure Regional lymph node metastasis present Wears glasses Wears dentures Post-menopausal Depression Anxiety Alcohol use Gastric reflux Smoker Cardiology follow-up encounter Vitamin D deficiency Surgical History History of vascular access device [...] members: significant other 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, 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 Smoking Status: Current every day smoker (Patient smoked today.) Tobacco: How many years used: 50 second hand exposure: Yes alcohol intake: former year quit: 2014 details: quit 7 years ago 2014 substance use type: does not use diet: other caffeine: Yes Type: coffee Number of servings: 3 what type of physical activity do you participate in: walking frequency: 1-2 times per week ROS Const Const: Positive for fatigue (Fatigue getting better since chemo ended); Negative for body ache, fever(s) or chills ENT ENT: Negative for dizziness or Nosebleed/epistaxis Cardio Chest Pain: No Palpitations: No Edema: None Muscle aches with walking: None Resp Respiratory: Negative for SOB with activity, SOB at rest, SOB orthopnea\SOB lying down, Cough or paroxysmal nocturnal dyspnea GI GI: Negative nausea, bright, red blood in stools, black,tarry stools or loose stools : Negative for hematuria or frequent nighttime urination/ nocturia Musc Musc: Negative for muscle aches/ myalgia Skin Skin: Negative non-healing lesions Neuro Neuro: Negative for dizziness, lightheadedness, near syncope, syncope or orthostatic symptoms Endo Endo: Positive for fatigue (Fatigue getting better since chemo ended) Cardiology Exam Const Appearance: cooperative, healthy appearing, no acute distress, well developed and well groomed Nutritional Appearance: average body habitus and well nourished Orientation: alert, awake and oriented x3 Head Head: normal to inspection, normocephalic and atraumatic Ears: hearing grossly normal bilaterally and external ears normal Nose: external nose normal, nares normal, nasal mucous membranes and turbinates normal, septum normal and no nasal discharge Face and Sinus: face symmetric Mouth: oral mucosae normal, tongue normal, oropharynx normal and moist mucous membranes Teeth and gingiva: dentition normal Throat: posterior oropharynx normal, tonsils normal and uvula midline Eyes General: appearance normal, both eyes and all related structures Eyelids: eyelids normal Conjunctivae: conjunctivae normal Pupils: PERRL, normal by confrontation and accommodation normal EOM: EOM intact bilaterally Neck Neck: normal visual inspection, trachea midline and no JVD JVD: +5 Carotids: normal carotid upstroke and bounding pulses Chest Chest inspection: normal inspection of the chest, symmetric chest movement and normal respiratory effort Auscultation: Bilateral: Clear to Auscultation Cardio Palpation: normal PMI Rate: regular rate Rhythm: regular rhythm Heart sounds: S1 normal, S2 normal and normal, physiologic split S2; Negative rub, gallop or murmur GI GI: normal to inspection, soft, no hepatosplenomegaly and bowel sounds present Neuro General: patient alert, patient awake, patient oriented x3, gait normal, moves all extremities and no focal sensory deficit Skin Skin: no rashes or lesions noted Extremities Pulses: Normal: Right Femoral Pulse, Left Femoral Pulse, Right Dorsalis Pedis Pulse, Left Dorsalis Pedis Pulse, Right Posterior Tibial Pulse, Left Posterior Tibial Pulse, Right Radial Pulse and Left Radial Pulse Lower Extremity Edema: None: Bilateral Musculoskel Musculoskeletal: No joint tenderness Psych Psychological: normal affect Supplemental Info Supplemental Information Diagnostics: Electrocardiogram Echocardiogram Chest X-Ray Chest CTA Abdomen/Pelvis CT Coronary Angiography CT Pulmonary: Pulmonary Function Test Pulmonary Exercise Test Past Visits: Cardiology Visit Today Assessment and Plan Assessment and Plan (1) Tachycardia: Status: Acute Plan: She appears to have a tachycardia the etiology of which is not entirely known atthis time.She will continue he beta melida. I do not think that there is a reason to start any statin at this particular time. This was discussed with herand the team. She has improved remarkably. Her echo demonstrated normal LV function. Thank you for allowing me to participate in the care of your patient. Please don't hesitate to call if any issues arise. Plan Details Follow Up: 1 Year (health associate/onc) Coding Level of Care Code Off vis,est,level 4 Diagnoses Tachycardia R00.0 Coding Level of Care Code Off vis,est,level 4 Diagnoses Tachycardia R00.0 Clinical Quality Measures Falls Risk Screening/Assistive Devices Have you fallen in the past year?: No 01/10/25 0943 <Electronically signed by Gabriele Avelar> Date _ Gabriele Guerrero MD Cosigner Signature: Date (if applicable) CC: ~ [facility] Work Phone: Progress note Author Aly Gupta [facility] Note Date/Time January 23, 2025 2: 11pm [facility] [address] [place] [address] OFFICE VISIT Date of Service: 01/23/25 1313 MR#: [id number] Acct: [id number] Name: GABRIELLE RIOS Rep #: [id number] : 1955 From: Aly amaro DO Age/Sex: 69/F Location: [facility] Status: Signed Intake Vital Signs 12/17/24 08:57 01/10/25 09:20 01/23/25 13:13 Height 5 ft 5 in 5 ft 5 in 5 ft 5 in Weight: 139 lb 3 oz BMI 23.1 BP 128/90 H Blood Pressure Location Lt brachial Position Sitting Respiration 18 Pulse 83 Pulse Source Monitor Temp 97.0 F L Temperature Source Temporal Artery Pulse Oximetry (%) 100 Oxygen Delivery Method room air Intake Is patient in pain?: Yes (back) Pain scale (1-10): 6 Allergies amoxicillin (From Augmentin) Allergy (Intermediate, Verified 01/23/25 13:16) stomach pain clavulanic acid (From Augmentin) Allergy (Intermediate, Verified 01/23/25 13:16) stomach pain Sulfa (Sulfonamide Antibiotics) Allergy (Verified 01/23/25 13:16) Nausea Medications ?Medication ?Instructions ?Recorded ?Confirmed ?Type metoprolol succinate 50 mg 50 mg PO QDAY #90 tabs 08/0901/23/25 Rx tablet,extended release 24 hr lidocaine-prilocaine 2.5 %-2.5 % 1 applic topical ONCE PRN port 09/30/24 01/23/25 Rx topical cream access 30 days #30 grams ondansetron 8 mg disintegrating 8 mg PO Q8H PRN nausea and 09/30/24 01/23/25 Rx tablet vomiting #30 tabs pregabalin 100 mg capsule 100 mg PO QHS 10/08/2401/23 History pregabalin 50 mg capsule 50 mg PO QDAY 10/08/2401/23 History oxycodone 5 mg capsule 5 mg PO .qid 12/17/24 History linaclotide 290 mcg capsule 290 mcg PO QAM 01/07/25 History (Linzess) famotidine 20 mg tablet (Acid 20 mg PO QDAY 01/10/25 1 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)) Have you fallen in the past year?: No Central Venous Access Central Venous Access: Yes Port/PICC: Port PFSH PFSH Medical History Encounter for antineoplastic immunotherapy UTI (urinary tract infection) Dark urine Fatigue Encounter for antineoplastic chemotherapy and immunotherapy Loss of hearing History of steroid therapy Arthritis Easy bruising Back pain History of ulceration Shortness of breath on exertion History of irregular heartbeat History of echocardiogram Metastasis to lung Vitiligo Local recurrence of lung cancer Generalized weakness Low back pain Encounter for chemotherapy management Anemia Tachycardia Thrombocytopenia Constipation Cancer Encounter for education Chronic renal failure Regional lymph node metastasis present Wears glasses Wears dentures Post-menopausal Depression Anxiety Alcohol use Gastric reflux Smoker Cardiology follow-up encounter Vitamin D deficiency Home Medications ?Medication ?Instructions ?Recorded ?Last Taken ?Type metoprolol succinate 50 mg 50 mg PO QDAY #90 tabs 08/0910/02/24 04:30 Rx tablet,extended release 24 hr lidocaine-prilocaine 2.5 %-2.5 % 1 applic topical ONCE PRN port 09/30/24 Unknown Rx topical cream access 30 days #30 grams ondansetron 8 mg disintegrating 8 mg PO Q8H PRN nausea and 09/30/24 Unknown Rx tablet vomiting #30 tabs pregabalin 100 mg capsule 100 mg PO QHS 10/08/24 Unkno wn History pregabalin 50 mg capsule 50 mg PO QDAY 10/08/24 Unkno wn History oxycodone 5 mg capsule 5 mg PO .qid 12/17/24 Unknow n History linaclotide 290 mcg capsule 290 mcg PO QAM 01/07/25 Un known History (Linzess) famotidine 20 mg tablet (Acid 20 mg PO QDAY 01/10/25 U nknown 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)) Allergy/AdvReac Type Severity Reaction Status Date / Time amoxicillin (From Augmentin) Allergy Intermediate stomach Verified 01/23/25 13:16 pain clavulanic acid (From Allergy Intermediate stomach Verified 01/23/25 13:16 Augmentin) pain Sulfa (Sulfonamide Allergy Nausea Verified 01/23/25 13:16 Antibiotics) Family History Father Alcoholism High cholesterol Hypertension Alzheimer disease Mother Alcoholism Anxiety Cancer unknown primary diagnosis High cholesterol Hypertension Grandfather Alcoholism Grandmother Alcoholism Cancer possibly had cancer but not confirmed Sister Breast cancer, Onset Age: 60 High cholesterol Hypertension Aunt Cancer pancreatic Uncle Lung cancer Surgical History History of vascular access device Hx of surgical procedure History of lung biopsy Hx of colonoscopy History of esophagogastroduodenoscopy (EGD) history of left eye surgery Social History household members: significant other 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, 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 Smoking Status: Current every day smoker (Patient smoked today.) Tobacco: How many years used: 50 second hand exposure: Yes alcohol intake: former year quit: 2014 details: quit 7 years ago 2014 substance use type: does not use diet: other caffeine: Yes Type: coffee Number of servings: 3 what type of physical activity do you participate in: walking frequency: 1-2 times per week Diagnosis: Gabrielle Rios is a 69-year-old female diagnosed with limited stage small cell lung cancer (cT3 cN2 M0) status post CTA chest (01/30/2022), CT abdomen/pelvis with contrast (02/10/2022), bronchoscopy with biopsy (02/11/2022), PFTs (02/14/2022), PET scan (02/23/2022), brain MRI (02/28/2022), and evaluation by medical oncology (02/28/2022). From 04/04/2022 ? 04/27/2022 she received definitive chemoradiation.? She now has been diagnosed with local only recurrentdisease status post CT chest/abdomen with contrast (10/20/2023), PET scan (11/07/2023), and CT-guided biopsy the right lung mass (11/22/2023). From 12/26/2023 ? 01/05/2024 she received lung SBRT to the SCLC recurrence. History of Present Illness: 01/30/2022: CTA chest was performed.? This demonstrated subcentimeter bilateral hilar lymph nodes.? Confluent adenopathy in the precarinal mediastinum spanning approximately 2.2 cm with partial encasement and mild narrowing of the right pulmonary artery.? There are multiple spiculated nodules in the right upper lobewith the largest measuring 2.1 cm located 9 mm in the posterior lateral pleura within the residual tethering to the pleura.? This is worrisome for malignancy.?There is concern for an abdominal aneurysm dilation at the inferior study marginrecommend abdominal CT. 02/10/2022: CT abdomen/pelvis with contrast was performed.? This demonstrated noacute abdominal or pelvic abnormality.? There is evidence of constipation. 02/11/2022: Bronchoscopy was performed.? Endobronchial ultrasound was completed to examine the right lower paratracheal region, 4R, and subcarinal mediastinum level 7 in order to assist with FNA of these areas.? Pathology in forearm was consistent with small cell lung cancer, and biopsy of level 7 was also consistent with small cell lung cancer. 02/14/2022: PFTs were performed.? FEV1 is 73% predicted and DLCO is 67% predicted. 02/23/2022: PET scan was performed.? There is increased FDG concentration manifest in several location within the right upper lobe with a calculated maximum SUV of 9.2 and the largest abnormality being 2.6 cm.? There is also increased uptake within the paratracheal, subaortic, and subcarinal lymph node distributions towards the right with a calculated maximum SUV of 12.3 and a maximum diameter of 5.8 cm. 02/28/2022: Brain MRI with and without contrast was performed.? This demonstrated no evidence of metastatic disease.? 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 04/27/2022: received definitive chemoradiation therapy consisting [id number] cGy delivered in 30 fractions twice daily to the right upper lobe lung disease, right hilum, and mediastinal disease.? She was treated using a VMAT plan with 6 MV photons. 05/25/2022: Patient completed CTA chest.? This demonstrated residual 1.3 x 0.9 cm nodule in the lateral aspect of the right lung apex, other previously seen nodules have resolved in the right upper lobe.? There is also definite improvement in the mediastinal lymphadenopathy as compared to the prior study.? No evidence of a PE is noted. 06/27/2022: MRI brain with and without contrast was performed.? This demonstratedno evidence of intracranial pathology. 07/26/2022: PET scan was performed.? This demonstrated that overall compared to the prior PET scan there is currently absence of defined viable neoplastic disease and complete response of all the previously noted areas of disease. 09/02/2022: Brain MRI with and without contrast was performed.? This demonstratedno evidence of metastatic disease. 12/03/2022: MRI brain was completed.? No evidence of metastatic disease is noted. 02/02/2023: CT chest/abdomen with contrast was performed. This demonstrated previously noted spiculated right upper lobe lesion is not demonstrated at this time. There is moderate stranding and cystic changes in the right upper lobe likely representing postradiation changes. No evidence of metastatic disease oractive disease at this time. 03/21/2023: MRI brain with and without contrast was performed. This demonstratedmoderate periventricular white matter ischemic changes without evidence of acuteinfarct. Chronic pontine ischemic changes, no evidence of metastatic disease. 08/03/2023: Brain MRI with and without contrast was performed.? This demonstratedinvolutional changes of the brain with no mass or abnormal enhancement.? No evidence of metastatic disease. 10/20/2023: Patient completed CT chest/abdomen with contrast.? This demonstrated an enlarging noncalcified nodule in the right upper lobe of the lungs from 0.8 cm in diameter now measuring 1.4 cm in diameter consistent with worsening disease.? No new nodules or masses.? No clear evidence for adenopathy or metastatic disease. 11/07/2023: PET scan was performed.? This demonstrated increased FDG concentration manifested in the right upper lobe lung field right upper lobe fulfilling quantitative criteria for viable neoplasm.? Recommend biopsy.? No other evidence of disease is appreciated. 11/22/2023: Patient completed CT-guided biopsy of a right lung mass.? This demonstrated small cell carcinoma.? From 12/26/2023 ? 01/05/2024: received 5000 cGy of 6 FFF MV photons in 5 fractionsto the SCLC recurrence with an SBRT technique. 03/07/2024: Bone scan was performed. This demonstrated increased tracer uptake noted in the shoulders and cervical spine right and left knees and right ankle which is consistent with degenerative arthritis. 04/29/2024: Patient completed CT abdomen/pelvis with contrast. This demonstratedno acute abnormality. 05/02/2024: Patient completed lumbar spine MRI without contrast. This demonstrated no evidence for bony pathology, levoscoliosis and mild degenerativechanges. Mild bilateral neural foraminal narrowing at L4-5 secondary to minor annular bulge with a tiny central disc protrusion. 05/16/2024: Patient completed pelvic MRI without contrast. This demonstrated bilateral hip degenerative changes noted with no other concerning findings. 06/18/2024: Patient completed CT chest and abdomen with contrast. This demonstrated stable examination except for a new 4.7 mm nodule in the anterior aspect of the right upper lobe. Prior treated areas appear controlled, evidenceof secondary fibrosis in the right lung from prior radiation. 01/20/2025: CT chest/abdomen with contrast was performed. This demonstrated stability of prior findings with no new concerns. 01/20/2025: Patient completed brain MRI with and without contrast. This demonstrated no abnormalities. The prior stated right parietal contrast-enhancing abnormality appears resolved. Radiation Treatment History: 1) 04/04/2022 ? 04/27/2022: received definitive chemoradiation therapy consistingof 4500 cGy delivered in 30 fractions twice daily to the right upper lobe lung disease, right hilum, and mediastinal disease.? She was treated using a VMAT plan with 6 MV photons. 2) From 12/26/2023 ? 01/05/2024: received 5000 cGy of 6 FFF MV photons in 5 fractions to the SCLC recurrence with an SBRT technique. Interval History: Patient returns for follow-up approximately 13 months after completing lung SBRTfor small cell lung cancer recurrence. She was treated with chemotherapy which ended about 5 weeks ago and now is on a Atezo. Tolerating treatment well without any difficulty. Still has pain in the sacral region which was present previously and is somewhat improved but still there. Pain is worst when she is sitting, fairly bad when standing, and least bad when laying. She denies pain elsewhere. She denies reproduction of her pain when pushing in the area. She does have a chronic dry cough which is stable. She denies shortness of breath or hemoptysis. She denies chest pain. She denies odynophagia or dysphagia. Weight has been stable. She has had some decrease in energy over the last monthbut she believes this is improving. Tachycardia remains controlled on metoprolol and cardiology is helping to manage. She denies headaches, vision changes, focal weakness/numbness, nausea, bone pain. She completes all ADLs without any difficulty denies having other problems or concerns at this time. Review of Systems: A 12-point review of systems was completed and was negative except for what is noted in the HPI/Interval History and by the nurse. Physical Exam: Weight: 139 lbs 3 oz ECO KARNOFSKY SCORE: 70% CONSTITUTIONAL: Well-developed, well-nourished, and in no apparent distress. NECK: Supple, no thyromegaly, and non-tender. Trachea midline. No cervical or supraclavicular adenopathy noted. CARDIAC: Mild tachycardia, normal rhythm. Normal S1, S2. No murmurs, rubs, or gallops. PULMONARY/CHEST: Lungs are clear to auscultation and percussion bilaterally. No wheezes, rhonchi, or crackles noted. No increased work of breathing. BACK: Straight and aligned. No CVA tenderness. Axial skeleton non-tender to percussion. EXTREMITIES: Full range of motion in all four extremities. No evidence of edema. PSYCHIATRIC: Appropriate mood and affect for the clinical situation. Imaging: As per HPI Laboratory Data: none Assessment & Plan Assessment/Plan (1) Local recurrence of lung cancer: QUALIFIERS: Laterality: right Qualified Code(s): C34.91 - Malignant neoplasm of unspecified part of right bronchus or lung PLAN: Plan Assessment: Gabrielle Rios is a 69-year-old female diagnosed with limited stage small cell lung cancer (cT3 cN2 M0) status post CTA chest (01/30/2022), CT abdomen/pelvis with contrast (02/10/2022), bronchoscopy with biopsy (02/11/2022), PFTs (02/14/2022), PET scan (02/23/2022), brain MRI (02/28/2022), and evaluation by medical oncology (02/28/2022). From 04/04/2022 ? 04/27/2022 she received definitive chemoradiation.? She now has been diagnosed with local only recurrent disease status post CT chest/abdomen with contrast (10/20/2023), PET scan (11/07/2023), and CT-guided biopsy the right lung mass (11/22/2023). From 12/26/2023 ? 01/05/2024 she received lung SBRT to the SCLC recurrence. Plan: Patient returns approximately 13 months after completing lung SBRT for small cell lung cancer recurrence. She is doing well clinically, due to having progression noted on CT and PET completed in August and September 2024 she went back on chemotherapy and is now on Atezo. She is doing well and appears to have had at least stability on CT but appears to me that she has had some improvement in thenodular lesions in her lung. MRI brain demonstrated resolution of the prior defined small contrast-enhancing lesion in the right parietal lobe. She will see medical oncology next week to further review her CT abdomen and chest and also have her next dose of a Atezo. I will plan to have her repeat brain MRI inabout 3 months and see her at that time for follow-up. She was instructed to call with any further questions or concerns in the interim. Thank you for allowing me to participate in the management and care of your patient. If I may answer any questions in the interim, please do not hesitate tocontact me at any time. Aly Gupta DO, MS [employer], Department of Radiation Oncology [facility] Coding Level of Care Code Off vis,est,level 3 Diagnoses Local recurrence of malignant neoplasm of right lung C34.91 Laterality: right 01/23/25 1429 <Electronically signed by Aly Gupta DO> Date _ Aly Gupta DO Cosigner Signature: Date (if applicable) CC: ~ [facility] Work Phone: Reason for referral (narrative)No reason for referral information availableBlAdventist [facility] Work Phone: Chief Complaint and Reason for [...] Admit Date Degenerative disc disease, lumbar Januar 2024 2:28pm Lumbar radiculopathy April 18, 2024 [...] 2024 9:54am Degenerative disc disease, lumbar Februa ry 2024 8:49am Sacroiliitis May 21, 2024 8 [...] June 2:51pm Regional lymph node metastasis present [facility] 2024 2:51pm Small cell lung cancer, right [...] 1:34pm Regional lymph node metastasis present M 2024 1:34pm Small cell lung cancer, right upper lobe September 11, 2024 1:34pm Local recurrence of lung cancer September 2:18pm Regional lymph node metastasis present [facility] 2024 2:18pm Small cell lung cancer, [...] 2:51pm Regional lymph node metastasis present M [facility] 2024 2:51pm Small cell lung cancer, right [...] 1:34pm Regional lymph node metastasis present M 2024 1:34pm Small cell lung cancer, right upper lobe September 11, 2024 1:34pm Local recurrence of lung cancer September 2:18pm Metastasis to lung September 24, 2024 2:18 pm Regional lymph node metastasis present J [facility] 2024 2:18pm Small cell lung cancer, [...] 2:51pm Regional lymph node metastasis present M [facility] 2024 2:51pm Small cell lung cancer, right [...] 1:34pm Regional lymph node metastasis present M 2024 1:34pm Small cell lung cancer, right upper lobe September 11, 2024 1:34pm Local recurrence of lung cancer September 2:18pm Metastasis to lung September 24, 2024 2:18 pm Regional lymph node metastasis present J [facility] 2024 2:18pm Small cell lung cancer, right upper lobe September 24, 2024 2:18pm Encounter for insertion of venous access port September 27, 2024 8:43am Local recurrence of lung cancer September 8:43am Local recurrence of lung cancer September 2:59pm Metastasis to lung September 30, 2024 2:59 pm Regional lymph node metastasis present J [facility] 2024 2:59pm Small cell lung cancer, right upper lobe September 30, 2024 2:59pm Chief Complaint Admit Date F/U SCLC *IV [...] CHEMO ED September 30, 2024 2:59 pm Insertion, Vascular Port October 02, 2024 7:09am Insertion, Vascular Port October 02, 2024 8:07am Reason for Visit Admit Date Local recurrence [...] pm Regional lymph node metastasis present J [facility] 2024 2:18pm Small cell lung cancer, right upper lobe September 24, 2024 2:18pm Encounter for insertion of venous access port September 27, 2024 8:43am Local recurrence of lung cancer September 8:43am Encounter for education September 30, 2024 2:59pm Local recurrence of lung cancer September 2:59pm Metastasis to lung September 30, 2024 2:59 pm Regional lymph node metastasis present J [facility] 2024 2:59pm Small cell lung cancer, right upper lobe September 30, 2024 2:59pm Chief Complaint Admit Date F/U SCLC *IV ONLY* June 18, 2024 7:48 am PFT June 18, 2024 8:53 am 3 MO - NO LABS - [...] CHEMO ED September 30, 2024 2:59 pm Insertion, Vascular Port October 02, 2024 7:09am Insertion, Vascular Port October 02, 2024 8:07am REDNESS AT INCISION SITE October 04, 2024 1:59pm Chief Complaint Admit Date F/U SCLC *IV ONLY* June 18, 2024 7:48 am PFT June 18, 2024 8:53 am 3 MO - NO LABS - [...] BX RESULTS September 11, 2024 1:34p m REVIEW PET RESULTS September 24, 2024 2:18 pm PORT PLACEMENT September 27, 2024 8:43 am CHEMO ED September 30, 2024 2:59 pm Insertion, Vascular Port October 02, 2024 7:09am Insertion, Vascular Port October 02, 2024 8:07am REDNESS AT INCISION SITE October 04, 2024 1:59pm lung October 08, 2024 7:45 am NEW START - LABS - CARBO/ETOP/ATEZO October 08, 2024 8:15am Reason for Visit Admit Date Local recurrence of lung cancer June 2:51pm Regional lymph node metastasis present M [facility] 2024 2:51pm Small cell lung cancer, right [...] 1:34pm Regional lymph node metastasis present M 2024 1:34pm Small cell lung cancer, right upper lobe September 11, 2024 1:34pm Local recurrence of lung cancer September 2:18pm Metastasis to lung September 24, 2024 2:18 pm Regional lymph node metastasis present J [facility] 2024 2:18pm Small cell lung cancer, right upper lobe September 24, 2024 2:18pm Encounter for insertion of venous access port September 27, 2024 8:43am Local recurrence of lung cancer September 8:43am Encounter for education September 30, 2024 2:59pm Local recurrence of lung cancer September 2:59pm Metastasis to lung September 30, 2024 2:59 pm Regional lymph node metastasis present J [facility] 2024 2:59pm Small cell lung cancer, right upper lobe September 30, 2024 2:59pm Encounter for insertion of venous access port October 04, 2024 1:59pm Encounter for antineoplastic chemotherap y and immunotherapy October 08, 2024 8:15am Local recurrence of lung cancer September 8:15am Metastasis to lung October 08, 2024 8:15 am Regional lymph node metastasis present J [facility] 2024 8:15am Small cell lung cancer, right upper lobe October 08, 2024 8:15am Chief Complaint Admit Date F/U SCLC *IV ONLY* June 18, 2024 7:48 am PFT June 18, 2024 8:53 am 3 MO - NO LABS - [...] BX RESULTS September 11, 2024 1:34p m REVIEW PET RESULTS September 24, 2024 2:18 pm PORT PLACEMENT September 27, 2024 8:43 am CHEMO ED September 30, 2024 2:59 pm Insertion, Vascular Port October 02, 2024 7:09am Insertion, Vascular Port October 02, 2024 8:07am REDNESS AT INCISION SITE October 04, 2024 1:59pm NEW START - LABS - CARBO/ETOP/ATEZO October 08, 2024 8:15am lung October 10, 2024 1:00 pm ACUTE, REFLUX October 16, 2024 2:28p m Chief Complaint Admit Date LUNG CANCER August 26, 2024 7:48a m 6 M FU August 28, 2024 8:49a m REVIEW CT SCAN August 29, 2024 11:58 am LUNG NODULE September 03, 2024 7:37a m EORDER September 11, 2024 12:55 pm REVIEW BX RESULTS September 11, 2024 1:34p m REVIEW PET RESULTS September 24, 2024 2:18 pm PORT PLACEMENT September 27, 2024 8:43 am CHEMO ED September 30, 2024 2:59 pm Insertion, Vascular Port October 02, 2024 7:09am Insertion, Vascular Port October 02, 2024 8:07am REDNESS AT INCISION SITE October 04, 2024 1:59pm NEW START - LABS - CARBO/ETOP/ATEZO October 08, 2024 8:15am ACUTE, REFLUX October 16, 2024 2:28p m 3 WK - LABS - CARBO/ETOP/ATEZO October 7:52am lung November 05, 2024 8:00 am Reason for Visit Admit Date Local recurrence of lung cancer August 8:49am Smoker August 28, 2024 8:49a m Stage 1 mild COPD by GOLD classification August 28, 2024 8:49am Local recurrence of lung cancer August 11:58am Regional lymph node metastasis present [facility] 2024 11:58am Small cell lung cancer, right upper lobe August 29, 2024 11:58am Local recurrence of lung cancer August 1:34pm Regional lymph node metastasis present [facility] 2024 1:34pm Small cell lung cancer, right upper lobe September 11, 2024 1:34pm Local recurrence of lung cancer September 2:18pm Metastasis to lung September 24, 2024 2:18 pm Regional lymph node metastasis present J [facility] 2024 2:18pm Small cell lung cancer, right upper lobe September 24, 2024 2:18pm Encounter for insertion of venous access port September 27, 2024 8:43am Local recurrence of lung cancer September 8:43am Encounter for education September 30, 2024 2:59pm Local recurrence of lung cancer September 2:59pm Metastasis to lung September 30, 2024 2:59 pm Regional lymph node metastasis present J [facility] 2024 2:59pm Small cell lung cancer, right upper lobe September 30, 2024 2:59pm Encounter for insertion of venous access port October 04, 2024 1:59pm Encounter for antineoplastic chemotherap y and immunotherapy October 08, 2024 8:15am Local recurrence of lung cancer September 8:15am Metastasis to lung October 08, 2024 8:15 am Regional lymph node metastasis present J [facility] 2024 8:15am Small cell lung cancer, right upper lobe October 08, 2024 8:15am Local recurrence of lung cancer October 2:28pm Metastasis to lung October 16, 2024 2:28p m Regional lymph node metastasis present J [facility] 2024 2:28pm Small cell lung cancer, right upper lobe October 16, 2024 2:28pm Chief Complaint Admit Date LUNG CANCER August 26, 2024 7:48a m 6 M FU August 28, 2024 8:49a m REVIEW CT SCAN August 29, 2024 11:58 am LUNG NODULE September 03, 2024 7:37a m EORDER September 11, 2024 12:55 pm REVIEW BX RESULTS September 11, 2024 1:34p m REVIEW PET RESULTS September 24, 2024 2:18 pm PORT PLACEMENT September 27, 2024 8:43 am CHEMO ED September 30, 2024 2:59 pm Insertion, Vascular Port October 02, 2024 7:09am Insertion, Vascular Port October 02, 2024 8:07am REDNESS AT INCISION SITE October 04, 2024 1:59pm NEW START - LABS - CARBO/ETOP/ATEZO October 08, 2024 8:15am ACUTE, REFLUX October 16, 2024 2:28p m 3 WK - LABS - CARBO/ETOP/ATEZO October 7:52am lung November 26, 2024 8: 15am Reason for Visit Admit Date Local recurrence of lung cancer August 8:49am Smoker August 28, 2024 8:49a m Stage 1 mild COPD by GOLD classification August 28, 2024 8:49am Local recurrence of lung cancer August 11:58am Regional lymph node metastasis present M 2024 11:58am Small cell lung cancer, right upper lobe August 29, 2024 11:58am Local recurrence of lung cancer August 1:34pm Regional lymph node metastasis present M 2024 1:34pm Small cell lung cancer, right upper lobe September 11, 2024 1:34pm Local recurrence of lung cancer September 2:18pm Metastasis to lung September 24, 2024 2:18 pm Regional lymph node metastasis present J [facility] 2024 2:18pm Small cell lung cancer, right upper lobe September 24, 2024 2:18pm Encounter for insertion of venous access port September 27, 2024 8:43am Local recurrence of lung cancer September 8:43am Encounter for education September 30, 2024 2:59pm Local recurrence of lung cancer September 2:59pm Metastasis to lung September 30, 2024 2:59 pm Regional lymph node metastasis present J [facility] 2024 2:59pm Small cell lung cancer, right upper lobe September 30, 2024 2:59pm Encounter for insertion of venous access port October 04, 2024 1:59pm Encounter for antineoplastic chemotherap y and immunotherapy October 08, 2024 8:15am Local recurrence of lung cancer September 8:15am Metastasis to lung October 08, 2024 8:15 am Regional lymph node metastasis present J [facility] 2024 8:15am Small cell lung cancer, right upper lobe October 08, 2024 8:15am Local recurrence of lung cancer October 2:28pm Metastasis to lung October 16, 2024 2:28p m Regional lymph node metastasis present J [facility] 2024 2:28pm Small cell lung cancer, right upper lobe October 16, 2024 2:28pm Local recurrence of lung cancer October 7:52am Metastasis to lung November 05, 2024 7:52 am Regional lymph node metastasis present J [facility] 2024 7:52am Small cell lung cancer, right upper lobe November 05, 2024 7:52am Local recurrence of lung cancer November 152024 8:15am Metastasis to lung November 26, 2024 8: 15am Regional lymph node metastasis present [facility] 2024 8:15am Small cell lung cancer, right upper lobe November 26, 2024 8:15am Chief Complaint Admit Date LUNG CANCER August 26, 2024 7:48a m 6 M FU August 28, 2024 8:49a m REVIEW CT SCAN August 29, 2024 11:58 am LUNG NODULE September 03, 2024 7:37a m EORDER September 11, 2024 12:55 pm REVIEW BX RESULTS September 11, 2024 1:34p m REVIEW PET RESULTS September 24, 2024 2:18 pm PORT PLACEMENT September 27, 2024 8:43 am CHEMO ED September 30, 2024 2:59 pm Insertion, Vascular Port October 02, 2024 7:09am Insertion, Vascular Port October 02, 2024 8:07am REDNESS AT INCISION SITE October 04, 2024 1:59pm NEW START - LABS - CARBO/ETOP/ATEZO October 08, 2024 8:15am ACUTE, REFLUX October 16, 2024 2:28p m 3 WK - LABS - CARBO/ETOP/ATEZO October 7:52am 3 WKS - LABS - CARBO/ETOP/ATEZO November 152024 8:15am CANCER December 03, 2024 8: 01am lung December 05, 2024 2: 29pm Reason for Visit Admit Date Local recurrence of lung cancer August 8:49am [...] pm Regional lymph node metastasis present J [facility] 2024 2:18pm Small cell lung cancer, right upper lobe September 24, 2024 2:18pm Encounter for insertion of venous access port September 27, 2024 8:43am Local recurrence of lung cancer September 8:43am Encounter for education September 30, 2024 2:59pm Local recurrence of lung cancer September 2:59pm Metastasis to lung September 30, 2024 2:59 pm Regional lymph node metastasis present J [facility] 2024 2:59pm Small cell lung cancer, right upper lobe September 30, 2024 2:59pm Encounter for insertion of venous access port October 04, 2024 1:59pm Encounter for antineoplastic chemotherap y and immunotherapy October 08, 2024 8:15am Local recurrence of lung cancer September 8:15am Metastasis to lung October 08, 2024 8:15 am Regional lymph node metastasis present J [facility] 2024 8:15am Small cell lung cancer, right upper lobe October 08, 2024 8:15am Local recurrence of lung cancer October 2:28pm Metastasis to lung October 16, 2024 2:28p m Regional lymph node metastasis present J [facility] 2024 2:28pm Small cell lung cancer, right upper lobe October 16, 2024 2:28pm Local recurrence of lung cancer October 7:52am Metastasis to lung November 05, 2024 7:52 am Regional lymph node metastasis present J [facility] 2024 7:52am Small cell lung cancer, right upper lobe November 05, 2024 7:52am Metastasis to lung November 26, 2024 8: 15am Regional lymph node metastasis present [facility] 2024 8:15am Small cell lung cancer, right upper lobe November 26, 2024 8:15am Chief Complaint Admit Date LUNG CANCER August 26, 2024 7:48a m 6 M FU August 28, 2024 8:49a m REVIEW CT SCAN August 29, 2024 11:58 am LUNG NODULE September 03, 2024 7:37a m EORDER September 11, 2024 12:55 pm REVIEW BX RESULTS September 11, 2024 1:34p m REVIEW PET RESULTS September 24, 2024 2:18 pm PORT PLACEMENT September 27, 2024 8:43 am CHEMO ED September 30, 2024 2:59 pm Insertion, Vascular Port October 02, 2024 7:09am Insertion, Vascular Port October 02, 2024 8:07am REDNESS AT INCISION SITE October 04, 2024 1:59pm NEW START - LABS - CARBO/ETOP/ATEZO October 08, 2024 8:15am ACUTE, REFLUX October 16, 2024 2:28p m 3 WK - LABS - CARBO/ETOP/ATEZO October 7:52am 3 WKS - LABS - CARBO/ETOP/ATEZO November 152024 8:15am CANCER December 03, 2024 8: 01am lung December 17, 2024 7:45am 3 WKS - LABS - CARBO/ETOP/ATEZO Septembe r 2024 7:50am Reason for Visit Admit Date Local recurrence of lung cancer August 8:49am Smoker August 28, 2024 8:49a m Stage 1 mild COPD by GOLD classification August 28, 2024 8:49am Local recurrence of lung cancer August 11:58am Regional lymph node metastasis present [facility] 2024 11:58am Small cell lung cancer, right upper lobe August 29, 2024 11:58am Local recurrence of lung cancer August 1:34pm Regional lymph node metastasis present [facility] 2024 1:34pm Small cell lung cancer, right upper lobe September 11, 2024 1:34pm Local recurrence of lung cancer September 2:18pm Metastasis to lung September 24, 2024 2:18 pm Regional lymph node metastasis present [facility] [facility] 2:18pm Small cell lung cancer, right upper lobe September 24, 2024 2:18pm Encounter for insertion of venous access port September 27, 2024 8:43am Local recurrence of lung cancer September 8:43am Encounter for education September 30, 2024 2:59pm Local recurrence of lung cancer September 2:59pm Metastasis to lung September 30, 2024 2:59 pm Regional lymph node metastasis present J [facility] 2024 2:59pm Small cell lung cancer, right upper lobe September 30, 2024 2:59pm Encounter for insertion of venous access port October 04, 2024 1:59pm Encounter for antineoplastic chemotherapy and immunotherapy October 08, 2024 8:15am Local recurrence of lung cancer September 8:15am Metastasis to lung October 08, 2024 8:15 am Regional lymph node metastasis present J [facility] 2024 8:15am Small cell lung cancer, right upper lobe October 08, 2024 8:15am Local recurrence of lung cancer October 2:28pm Metastasis to lung October 16, 2024 2:28p m Regional lymph node metastasis present J [facility] 2024 2:28pm Small cell lung cancer, right upper lobe October 16, 2024 2:28pm Local recurrence of lung cancer October 7:52am Metastasis to lung November 05, 2024 7:52 am Regional lymph node metastasis present J [facility] 2024 7:52am Small cell lung cancer, right upper lobe November 05, 2024 7:52am Metastasis to lung November 26, 2024 8: 15am Regional lymph node metastasis present A [facility] 2024 8:15am Small cell lung cancer, right upper lobe November 26, 2024 8:15am Metastasis to lung December 17, 2024 7:50am Regional lymph node metastasis present S [place] 2024 7:50am Small cell lung cancer, right upper lobe December 17, 2024 7:50am Chief Complaint Admit Date REVIEW PET RESULTS September 24, 2024 2:18 pm PORT PLACEMENT September 27, 2024 8:43 am CHEMO ED September 30, 2024 2:59 pm Insertion, Vascular Port October 02, 2024 7:09am Insertion, Vascular Port October 02, 2024 8:07am REDNESS AT INCISION SITE October 04, 2024 1:59pm NEW START - LABS - CARBO/ETOP/ATEZO October 08, 2024 8:15am ACUTE, REFLUX October 16, 2024 2:28p m 3 WK - LABS - CARBO/ETOP/ATEZO October 7:52am 3 WKS - LABS - CARBO/ETOP/ATEZO November 152024 8:15am CANCER December 03, 2024 8: 01am 3 WKS - LABS - CARBO/ETOP/ATEZO Septembe r 2024 7:50am 3 WKS - LABS - ATEZO January 07 9:28am lung January 07, 2025 9:30am 6 M FU January 10, 2025 9:01am Reason for Visit Admit Date Local recurrence of lung cancer September 2:18pm Metastasis to lung September 24, 2024 2:18 pm Regional lymph node metastasis present J [facility] 2024 2:18pm Small cell lung cancer, right upper lobe September 24, 2024 2:18pm Encounter for insertion of venous access port September 27, 2024 8:43am Local recurrence of lung cancer September 8:43am Encounter for education September 30, 2024 2:59pm Local recurrence of lung cancer September 2:59pm Metastasis to lung September 30, 2024 2:59 pm Regional lymph node metastasis present J [facility] 2024 2:59pm Small cell lung cancer, right upper lobe September 30, 2024 2:59pm Encounter for insertion of venous access port October 04, 2024 1:59pm Encounter for antineoplastic chemotherapy and immunotherapy October 08, 2024 8:15am Local recurrence of lung cancer September 8:15am Metastasis to lung October 08, 2024 8:15 am Regional lymph node metastasis present J [facility] 2024 8:15am Small cell lung cancer, right upper lobe October 08, 2024 8:15am Local recurrence of lung cancer October 2:28pm Metastasis to lung October 16, 2024 2:28p m Regional lymph node metastasis present J [facility] 2024 2:28pm Small cell lung cancer, right upper lobe October 16, 2024 2:28pm Local recurrence of lung cancer October 7:52am Metastasis to lung November 05, 2024 7:52 am Regional lymph node metastasis present J [facility] 2024 7:52am Small cell lung cancer, right upper lobe November 05, 2024 7:52am Metastasis to lung November 26, 2024 8: 15am Regional lymph node metastasis present A [facility] 2024 8:15am Small cell lung cancer, right upper lobe November 26, 2024 8:15am Metastasis to lung December 17, 2024 7:50am Regional lymph node metastasis present S [facility] 2024 7:50am Small cell lung cancer, right upper lobe December 17, 2024 7:50am Encounter for antineoplastic immunothera py January 07, 2025 9:28am Metastasis to lung January 07, 2025 9:28am Regional lymph node metastasis present S [facility] 2024 9:28am Small cell lung cancer, right upper lobe January 07, 2025 9:28am Tachycardia January 10, 2025 9:01am Chief Complaint Admit Date CHEMO ED September 30, 2024 2:59 pm Insertion, Vascular Port October 02, 2024 7:09am Insertion, Vascular Port October 02, 2024 8:07am REDNESS AT INCISION SITE October 04, 2024 1:59pm NEW [facility] - LABS - CARBO/ETOP/ATEZO October 08, 2024 8:15am ACUTE, REFLUX October 16, 2024 2:28p m 3 WK - LABS - CARBO/ETOP/ATEZO October 7:52am 3 WKS - LABS - CARBO/ETOP/ATEZO November 152024 8:15am CANCER December 03, 2024 8: 01am 3 WKS - LABS - CARBO/ETOP/ATEZO Septembe 2024 7:50am 3 WKS - LABS - ATEZO January 07 9:28am lung January 07, 2025 9:30am 6 M FU January 10, 2025 9:01am SCLC, F/U BRAIN LESION January 20, 2025 7:48am 6 month follow up-review scans January [id number] 1:08pm Reason for Visit Admit Date Encounter for education September 30, 2024 2:59pm Local recurrence of lung cancer September 2:59pm Metastasis to lung September 30, 2024 2:59 pm Regional lymph node metastasis present J [facility] 2024 2:59pm Small cell lung cancer, right upper lobe September 30, 2024 2:59pm Encounter for insertion of venous access port October 04, 2024 1:59pm Encounter for antineoplastic chemotherapy and immunotherapy October 08, 2024 8:15am Local recurrence of lung cancer September 8:15am Metastasis to lung October 08, 2024 8:15 am Regional lymph node metastasis present J [facility] 2024 8:15am Small cell lung cancer, right upper lobe October 08, 2024 8:15am Local recurrence of lung cancer October 2:28pm Metastasis to lung October 16, 2024 2:28p m Regional lymph node metastasis present J [facility] 2024 2:28pm Small cell lung cancer, right upper lobe October 16, 2024 2:28pm Local recurrence of lung cancer October 7:52am Metastasis to lung November 05, 2024 7:52 am Regional lymph node metastasis present J [facility] 2024 7:52am Small cell lung cancer, right upper lobe November 05, 2024 7:52am Metastasis to lung November 26, 2024 8: 15am Regional lymph node metastasis present A [facility] 2024 8:15am Small cell lung cancer, right upper lobe November 26, 2024 8:15am Metastasis to lung December 17, 2024 7:50am Regional lymph node metastasis present S [place] 2024 7:50am Small cell lung cancer, right upper lobe December 17, 2024 7:50am Encounter for antineoplastic immunothera py January 07, 2025 9:28am Metastasis to lung January 07, 2025 9:28am Regional lymph node metastasis present S [place] 2024 9:28am Small cell lung cancer, right upper lobe January 07, 2025 9:28am Tachycardia January 10, 2025 9:01am Local recurrence of lung cancer January 23, 2025 1:08pm Chief Complaint Admit Date ACUTE, REFLUX October 16, 2024 2:28p m 3 WK - LABS - CARBO/ETOP/ATEZO October 7:52am 3 WKS - LABS - CARBO/ETOP/ATEZO November 152024 8:15am CANCER December 03, 2024 8: 01am 3 WKS - LABS - CARBO/ETOP/ATEZO Septembe r 2024 7:50am 3 WKS - LABS - ATEZO January 07 9:28am 6 M FU January 10, 2025 9:01am SCLC, F/U BRAIN LESION January 20, 2025 7:48am 6 month follow up-review scans January [id number] 1:08pm lung January 28, 2025 1 0:15am Reason for Visit Admit Date Local recurrence of lung cancer October 2:28pm Metastasis to lung October 16, 2024 2:28p m Regional lymph node metastasis present J [facility] 2024 2:28pm Small cell lung cancer, right upper lobe October 16, 2024 2:28pm Local recurrence of lung cancer October 7:52am Metastasis to lung November 05, 2024 7:52 am Regional lymph node metastasis present J [facility] 2024 7:52am Small cell lung cancer, right upper lobe November 05, 2024 7:52am Metastasis to lung November 26, 2024 8: 15am Regional lymph node metastasis present A [facility] 2024 8:15am Small cell lung cancer, right upper lobe November 26, 2024 8:15am Metastasis to lung December 17, 2024 7:50am Regional lymph node metastasis present S [facility] 2024 7:50am Small cell lung cancer, right upper lobe December 17, 2024 7:50am Encounter for antineoplastic immunothera py January 07, 2025 9:28am Metastasis to lung January 07, 2025 9:28am Regional lymph node metastasis present S [facility] 2024 9:28am Small cell lung cancer, right upper lobe January 07, 2025 9:28am Tachycardia January 10, 2025 9:01am Local recurrence of lung cancer January 23, 2025 1:08pm Metastasis to lung January 28, 2025 1 0:15am Regional lymph node metastasis present O [facility] 2024 10:15am Small cell lung cancer, right upper lobe January 28, 2025 10:15am Family History No Family History Records Found [...] Will No January 30 9:30pm Power of Opener Verifier [employer] No January 30, 2022 9:30pm Advance Directive Response Recorded Date/ Time Living Will No January 30 8:30pm Power of Opener Verifier [employer] No January 30, 2022 8:30pm Advance Directive Response Recorded Date/ Time Living Will No March 03, 2 022 8:27am Power of Opener Verifier [employer] No March 03, 2022 8:27am Advance Directive Response Recorded Date/ Time Advance Directives on File No Decem 2021 1:35pm Advance Directives No March 17, 2022 1:35pm Living Will No March 30, 2 022 12:07pm Power of Opener Verifier [employer] No March 30, 2022 12:07pm Advance Directive Response Recorded Date/ Time Advance Directives on File No Slick ry 2022 10:15am Advance Directives No May 03, 2022 10:15am Living Will No May 03 10:15am Power of Opener Verifier [employer] No May 03, 2022 10:15am Advance Directive Response Recorded Date/ Time Advance Directives on File No Jimbou artur 2022 12:06pm Advance Directives No May 26, 2022 12:06pm Living Will No May 26 12:06pm Power of Opener Verifier [employer] No May 26, 2022 12:06pm Advance Directive Response Recorded Date/ Time Advance Directives on File No Jimbou artur 2022 1:06pm Advance Directives No May 26, 2022 1:06pm Living Will No May 26 1:06pm Power of Opener Verifier [employer] No May 26, 2022 1:06pm Advance Directive Response Recorded Date/ Time Living Will No May 26 1:06pm Power of Opener Verifier [employer] No May 26, 2022 1:06pm Advance Directives on File No Jimbou 2022 1:06pm Advance Directives No May 26, 2022 1:06pm Living Will pt LWBS April 28 2:09pm Power of Opener Ver[employer] PT LWBS April 28, 2024 2:09pm Living Will No April 29 9:57am Power of Opener Verifier [employer] No April 29, 2024 9:57am Living Will No April 30 8:21am Power of Opener Verifier [employer] No April 30, 2024 8:21am Advance Directive Response Recorded Date/ Time Living Will No May 26 1:06pm Do you have a Healthcare Power of Opener Verifier [employer]? No May 26, 2022 1:06pm Advance Directives on File No Febru artur 2022 1:06pm Advance Directives No May 26, 2022 1:06pm Living Will pt LWBS April 28 2:09pm Do you have a Healthcare Power of Opener Verifier [employer]? PT L WBS April 28, 2024 2:09pm Living Will No April 29 9:57am Do you have a Healthcare Power of Opener Verifier [employer]? No April 29, 2024 9:57am Living Will No April 30 8:21am Do you have a Healthcare Power of Opener Verifier [employer]? No April 30, 2024 8:21am Advance Directive Response Recorded Date/ Time Living Will pt LWBS April 28 2:09pm Do you have a Healthcare Power of Opener Verifier [employer]? PT L WBS April 28, 2024 2:09pm Living Will No April 29 9:57am Do you have a Healthcare Power of Opener Verifier [employer]? No April 29, 2024 9:57am Living Will No April 30 8:21am Do you have a Healthcare Power of Opener Verifier [employer]? No April 30, 2024 8:21am Living Will No May 26 1:06pm Do you have a Healthcare Power of Opener Verifier [employer]? No May 26, 2022 1:06pm Advance Directives No May 26, 2022 1:06pm Advance Directive Response Recorded Date/ Time Living Will No May 26 1:06pm Do you have a Healthcare Power of Opener Verifier [employer]? No May 26, 2022 1:06pm Living Will No April 30 8:21am Do you have a Healthcare Power of Opener Verifier [employer]? No April 30, 2024 8:21am Advance Directives No May 26, 2022 1:06pm Advance Directive Response Recorded Date/ Time Living Will No May 26 1:06pm Do you have a Healthcare Power of Opener Ver[employer]? No May 26, 2022 1:06pm Advance Directives No May 26, 2022 1:06pm Advance Directive Response Recorded Date/ Time Living Will No May 26 1:06pm Do you have a Healthcare Power of Opener Ver[employer]? No May 26, 2022 1:06pm Advance Directives on File No Febru artur 2022 1:06pm Advance Directives No May 26, 2022 1:06pm Advance Directive Response Recorded Date/ Time Living Will No May 26 1:06pm Do you have a Healthcare Power of Opener Verifier [employer]? No May 26, 2022 1:06pm Advance Directives on File No Febru artur 2022 1:06pm Advance Directives No May 26, 2022 1:06pm Do you have a Healthcare Power of Opener Verifier [employer]? No September 30, 2024 1:29pm Advance Directive Response Recorded Date/ Time Living Will No May 26 1:06pm Do you have a Healthcare Power of Opener Ver[employer]? No May 26, 2022 1:06pm Advance Directives on File No October 10, 2024 1:20pm Living Will No October 10, 2024 1:20pm Do you have a Healthcare Power of Opener Verifier [employer]? No October 10, 2024 1:20pm Advance Directives No October 10 1:20pm Do you have a Healthcare Power of Opener Verifier [employer]? No September 30, 2024 1:29pm Advance Directive Response Recorded Date/ Time Living Will No May 26 1:06pm Do you have a Healthcare Power of Opener Verifier [employer]? No May 26, 2022 1:06pm Advance Directives on File No November 07, 2024 1:18pm Living Will No November 07, 2024 1:18pm Do you have a Healthcare Power of Opener Verifier [employer]? No November 07, 2024 1:18pm Advance Directives No November 07 1:18pm Do you have a Healthcare Power of Opener Verifier [employer]? No September 30, 2024 1:29pm Advance Directive Response Recorded Date/ Time Living Will No May 26 1:06pm Do you have a Healthcare Power of Opener Verifier [employer]? No May 26, 2022 1:06pm Advance Directives on File No Augus t 2024 1:22pm Living Will No November 28 1:22pm Do you have a Healthcare Power of Opener Verifier [employer]? No November 28, 2024 1:22pm Advance Directives No November 28, 2024 1:22pm Do you have a Healthcare Power of Opener Ver[employer]? No September 30, 2024 1:29pm Advance Directive Response Recorded Date/ Time Advance Directives on File No Deccole [email or web address] 11:50am Living Will No January 07, 2025 11:50am Do you have a Healthcare Power of Opener Verifier [employer]? No January 07, 2025 11:50am Advance Directives No December 11:50am Do you have a Healthcare Power of Opener Verifier [employer]? No September 30, 2024 1:29pm Advance Directive Response Recorded Date/ Time Advance Directives on File No Naeem hurley 2024 11:50am Living Will No January 07, 2025 11:50am Do you have a Healthcare Power of Opener Verifier [employer]? No January 07, 2025 11:50am Advance Directives No December 11:50am Summary Purpose Additional Source Comments Care Teams (unrecognized sec tion and content) Team Status: Active Member Role Status Dates Dr. Gabrielle Goldstein MD Family Provider Active Lara Bobo PSYCHIATRY TEACHER, PSYCHIATRY TEACHER-C Primary Care Provider Activ e Team Status: Inactive Member Role Status Dates Lara Bobo PSYCHIATRY TEACHER, PSYCHIATRY TEACHER-C Primary Care Provider, Refe rring Provider Active Dr. Jarred Jones MD Attending Provider Active Team Status: Active Member Role Status Dates Lara Bobo PSYCHIATRY TEACHER, PSYCHIATRY TEACHER-C Primary Care Provider, Refe rring Provider Active Dr. Jarred Jones MD Attending Provider, Other Provid er Active Team Status: Active Member Role Status Dates Lara Bobo PSYCHIATRY TEACHER, PSYCHIATRY TEACHER-C Primary Care Provider Activ e Dr. Jarred Jones MD Referring Provider, Other Provid er Active Dr. Corey Damian DO Attending Provider Active Team Status: Inactive Member Role Status Dates Lara Bobo PSYCHIATRY TEACHER, PSYCHIATRY TEACHER-C Primary Care Provider, Refe rring Provider Active Dr. Chadwick Munson MD Attending Provider Active Team Status: Inactive Member Role Status Dates Lara Bobo PSYCHIATRY TEACHER, PSYCHIATRY TEACHER-C Primary Care Provider, Refe rring Provider Active Shavonne Blanchard NP, PSYCHIATRY TEACHER-C Attending Provider Active Team Status: Inactive Member Role Status Dates Lara Bobo PSYCHIATRY TEACHER, PSYCHIATRY TEACHER-C Primary Care Provider, Refe rring Provider Active Dr. Sugar Ramírez MD Attending Provider Active Team Status: Inactive Member Role Status Dates Lara Bobo PSYCHIATRY TEACHER, PSYCHIATRY TEACHER-C Primary Care Provider, Refe rring Provider Active Dr. Aly Gupta DO Attending Provider Active Team Status: Active Member Role Status Dates Lara Bobo PSYCHIATRY TEACHER, PSYCHIATRY TEACHER-C Primary Care Provider Activ e Dr. Sugar Ramírez MD Attending Provider, Other Pro vider Active Team Status: Inactive Member Role Status Dates Lara Bobo PSYCHIATRY TEACHER, PSYCHIATRY TEACHER-C Primary Care Provider, Refe rring Provider Active Nurse Visit Active Dr. Sugar Ramírez MD Attending Provider Active Team Status: Active Member Role Status Dates Lara Bobo PSYCHIATRY TEACHER, PSYCHIATRY TEACHER-C Primary Care Provider Activ e Dr. Aly Gupta , Attending Provider, Referring P rovider Active Team Status: Inactive Member Role Status Dates Lara Bobo PSYCHIATRY TEACHER, PSYCHIATRY TEACHER-C Primary Care Provider Activ e Dr. Aly Gupta , Attending Provider, Referring P rovider Active Team Status: Inactive Member Role Status Dates Lara Bobo PSYCHIATRY TEACHER, PSYCHIATRY TEACHER-C Primary Care Provider Activ e Dr. Chava Magdaleno MD Active Dr. Aly Gupta , Attending Provider, Referring P rovider Active Team Status: Active Member Role Status Dates Lara Bobo PSYCHIATRY TEACHER, PSYCHIATRY TEACHER-C Primary Care Provider Activ e Dr. Aly Gupta DO Attending Provider Active Team Status: Inactive Member Role Status Osman Bobo PSYCHIATRY TEACHER, PSYCHIATRY TEACHER-C Primary Care Provider Activ e Dr. Cesar Barbour , Attending Provider, Emergency P rovider Active Team Status: Inactive Member Role Status Dates Lara Bobo PSYCHIATRY TEACHER, PSYCHIATRY TEACHER-C Primary Care Provider, Attending Provider, Referring Provider Active Team Status: Inactive Member Role Status Dates Lara Bobo PSYCHIATRY TEACHER, PSYCHIATRY TEACHER-C Primary Care Provider Activ e Dr. Jarred Jones MD Attending Provider, Referring Pr ovider Active Team Status: Active Member Role Status Dates Lara Bobo PSYCHIATRY TEACHER, PSYCHIATRY TEACHER-C Primary Care Provider Activ e Dr. Chadwick Munson MD Attending Provider, Referrin g Provider Active Team Status: Inactive Member Role Status Osman Bobo PSYCHIATRY TEACHER, PSYCHIATRY TEACHER-C Primary Care Provider Activ e Dr. Sugar Ramírez MD Attending Provider Active Team Status: Inactive Member Role Status Dates Lara Bobo PSYCHIATRY TEACHER, PSYCHIATRY TEACHER-C Primary Care Provider, Atte nding Provider Active Team Status: Inactive Member Role Status Dates Lara Bobo PSYCHIATRY TEACHER, PSYCHIATRY TEACHER-C Primary Care Provider Activ e Shavonne Blanchard PSYCHIATRY TEACHER, PSYCHIATRY TEACHER-C Attending Provider, Referring Provider Active Team Status: Active Member Role Status Dates Lara Bobo PSYCHIATRY TEACHER, PSYCHIATRY TEACHER-C Primary Care Provider Activ e Dr. Chase Colorado MD Attending Provider Active Shavonne Blanchard PSYCHIATRY TEACHER, PSYCHIATRY TEACHER-C Referring Provider Active Team Status: Inactive Member Role Status Dates Lara Bobo PSYCHIATRY TEACHER, PSYCHIATRY TEACHER-C Primary Care Provider, Refe rring Provider Active Gaye López PSYCHIATRY TEACHER, PSYCHIATRY TEACHER-C Attending Provider Active Team Status: Inactive Member Role Status Dates Lara Bobo PSYCHIATRY TEACHER, PSYCHIATRY TEACHER-C Primary Care Provider Activ e Dr. Aly Gupta DO Attending Provider Active Team Status: Active Member Role Status Dates Lara Bobo PSYCHIATRY TEACHER, PSYCHIATRY TEACHER-C Primary Care Provider Activ e Monica Salcido Attending Provider Active Team Status: Inactive Member Role Status Dates Lara Bobo PSYCHIATRY TEACHER, PSYCHIATRY TEACHER-C Primary Care Provider, Refe rring Provider Active Dr. Gabriele Guerrero MD Attending Provider Active Team Status: Active Member Role Status Dates Lara Bobo PSYCHIATRY TEACHER, PSYCHIATRY TEACHER-C Primary Care Provider Activ e Dr. Gabriele Guerrero MD Attending Provider Active Team Status: Active Member Role Status Dates Lara Bobo PSYCHIATRY TEACHER, PSYCHIATRY TEACHER-C Primary Care Provider Activ e Jaleel Garcia PSYCHIATRY TEACHER, PSYCHIATRY TEACHER-C Attending Provider Active Team Status: Inactive Member Role Status Dates Lara Bobo PSYCHIATRY TEACHER, PSYCHIATRY TEACHER-C Primary Care Provider Activ e Dr. Gabriele Guerrero MD Attending Provider, Referring Pro vider Active Team Status: Active Member Role Status Dates Lara Bobo PSYCHIATRY TEACHER, PSYCHIATRY TEACHER-C Primary Care Provider Activ e Dr. Gabriele Guerrero MD Attending Provider, Referring Pro vider Active Team Status: Active Member Role Status Dates Lara Bobo PSYCHIATRY TEACHER, PSYCHIATRY TEACHER-C Primary Care Provider Activ e Gaye López PSYCHIATRY TEACHER, PSYCHIATRY TEACHER-C Referring Provider, Other Pr ovider Active Dr. Corey Damian DO Attending Provider Active Team Status: Inactive Member Role Status Dates Lara Bobo PSYCHIATRY TEACHER, PSYCHIATRY TEACHER-C Primary Care Provider Activ e Gaye López PSYCHIATRY TEACHER, PSYCHIATRY TEACHER-C Attending Provider, Referrin g Provider Active Team Status: Inactive Member Role Status Dates Lara Bobo PSYCHIATRY TEACHER, PSYCHIATRY TEACHER-C Primary Care Provider Activ e Dr. Chadwick Munson MD Attending Provider, Referrin g Provider Active Team Status: Active Member Role Status Dates Dr. Gabrielle Goldstein MD Family Provider Active Marce Jack DO Primary Care Provider Active Team Status: Active Member Role Status Dates Dr. Aly Gupta , DO Attending Provider, Referring P rovider Active Marce Jack , DO Primary Care Provider Active Team Status: Inactive Member Role Status Dates Dr. Aly Gupta , DO Attending Provider Active Marce Jack , DO Primary Care Provider Active Team Status: Inactive Member Role Status Dates Dr. Aly Gupta , DO Attending Provider, Referring P rovider Active Marce Jack , DO Primary Care Provider Active Team Status: Inactive Member Role Status Dates Dr. Chadwick Munson MD Active Shavonne Blanchard PSYCHIATRY TEACHER, PSYCHIATRY TEACHER-C Attending Provider Active Marce Jack DO Primary Care Provider, Referring Provider Active Team Status: Inactive Member Role Status Dates Lara Bobo PSYCHIATRY TEACHER, PSYCHIATRY TEACHER-C Referring Provider Active Dr. Sugar Ramírez MD [...] Inactive Member Role Status Dates Marce Jack DO Primary Care Provi estuardo, Attending Provider, Referring Provider Active Team Status: Active Member Role Status Dates Marce Jack DO Primary Care Provider Active Dr. Gabriele Guerrero MD Attending Provider Active Team Status: Inactive Member Role Status Dates Marce Jack DO Primary Care Provider Active Dr. Gabriele Guerrero MD Attending Provider, Referring Pro vider Active Team Status: Inactive Member Role Status Dates Marce Jack DO Primary Care Provider Active Dr. Aly Gupta , Attending Provider Active Team Status: Inactive Member Role Status Dates Marce Jack DO Primary Care Provider Active Dr. Aly Gupta , Attending Provider, Referring P rovider Active Team Status: Inactive Member Role Status Dates Marce Jack , DO Primary Care Provider Active Shavonne Blanchard PSYCHIATRY TEACHER, PSYCHIATRY TEACHER-C Attending Provider, Referring Provider Active Team Status: Active Member Role Status Dates Marce Jack DO Primary Care Provider Active Shavonne Blanchard PSYCHIATRY TEACHER, PSYCHIATRY TEACHER-C Attending Provider, Referring Provider Active Team Status: Active Member Role Status Osman Alonso MD Primary Care Provider Active Team [...] St art: March 05, 2024 Lorena Beck PSYCHIATRY TEACHER, PSYCHIATRY TEACHER-C Attending Provider Active Start: March 05, 2024 [...] Status: Active Member Role Status Osman Bobo PSYCHIATRY TEACHER, PSYCHIATRY TEACHER-C Primary Care Provider Activ e Start: March [...] 2024 End: April 25, 2024 Trish Wolff PSYCHIATRY TEACHER, PSYCHIATRY TEACHER-C Attending Provider Active S tart: April 25, 2024 End: April 25, 2024 Trish Wolff PSYCHIATRY TEACHER, PSYCHIATRY TEACHER-C Referring Provider Active S tart: April 25, [...] St art: June 24, 2024 Gaye López PSYCHIATRY TEACHER, PSYCHIATRY TEACHER-C Attending Provider Active Start: June 24, 2024 Gaye López PSYCHIATRY TEACHER, PSYCHIATRY TEACHER-C Referring Provider Active Start: June 24, 2024 [...] St art: June 28, 2024 Gaye López PSYCHIATRY TEACHER, PSYCHIATRY TEACHER-C Referring Provider Active Start: June 28, 2024 Gaye López PSYCHIATRY TEACHER, PSYCHIATRY TEACHER-C Other Provider Active Start: June 28, 2024 [...] 2024 End: June 24, 2024 Gaye López PSYCHIATRY TEACHER, PSYCHIATRY TEACHER-C Attending Provider Active Start: June 24, 2024 End: June 24, 2024 Gaye López PSYCHIATRY TEACHER, PSYCHIATRY TEACHER-C Referring Provider Active Start: June 24, 2024 [...] 2024 End: August 28, 2024 Gaye López PSYCHIATRY TEACHER, PSYCHIATRY TEACHER-C Attending Provider Active Start: August 28, 2024 [...] Team Status: Active Member Role Status Osman lAonso MD Primary Care Provider Active St art: [...] Active Member Role Status Dates Lara Bobo PSYCHIATRY TEACHER, PSYCHIATRY TEACHER-C Primary Care Provider Activ e Start: September [...] 2024 End: September 30, 2024 Shavonne Blanchard PSYCHIATRY TEACHER, PSYCHIATRY TEACHER-C Attending Provider Active Start: September 30, 2024 End: September 30, 2024 Team Status: Inactive Member Role Status Osman Alonso MD Primary Care Provider Active St art: October 02, 2024 End: October 02, 2024 Dr. Sugar Ramírez MD Attending Provider Active Start: October 02, 2024 End: October 02, 2024 Dr. Sugar Ramírez MD Referring Provider Active Start: October 02, 2024 End: October 02, 2024 Team Status: Active Member Role Status Osman Alonso MD Primary Care Provider Active St art: October 02, 2024 Dr. Sugar Ramírez MD Attending Provider Active Start: October 02, 2024 Dr. Sugar Ramírez MD Referring Provider Active Start: October 02, 2024 Dr. Sugar Ramírez MD Other Provider Active S tart: October 02, 2024 Team Status: Active Member Role Status Dates Lynda Alonso MD Primary Care Provider Active St art: June 18, 2024 Dr. Corey Damian DO Attending Provider Active S tart: June 18, 2024 Gaye López PSYCHIATRY TEACHER, PSYCHIATRY TEACHER-C Referring Provider Active Start: June 18, 2024 Team Status: Inactive Member Role Status Dates Lynda Alonso MD Primary Care Provider Active St art: October 04, 2024 End: October 04, 2024 Lynda Alonso MD Referring Provider Active Start : October 04, 2024 End: October 04, 2024 Dr. Sugar Ramírez MD Attending Provider Active Start: October 04, 2024 End: October 04, 2024 Team Status: Active Member Role Status Dates Lara Bobo PSYCHIATRY TEACHER, PSYCHIATRY TEACHER-C Primary Care Provider Activ e Start: October 08, 2024 Dr. Chadwick Munson MD Attending Provider Active Start: October 08, 2024 Dr. Chadwick Munson MD Referring Provider Active Start: October 08, 2024 Team Status: Inactive Member Role Status Osman Alonso MD Primary Care Provider Active St art: October 08, 2024 End: October 08, 2024 Lynda Alonso MD Referring Provider Active Start : October 08, 2024 End: October 08, 2024 Shavonne Blanchard PSYCHIATRY TEACHER, PSYCHIATRY TEACHER-C Attending Provider Active Start: October 08, 2024 End: October 08, 2024 Team Status: Active Member Role/Relationship Status Osman Alonso MD Primary Care Provider Active Team Status: Inactive Member Role/Relationship Status Osman Alonso MD Primary Care Provider Active St art: June 18, 2024 End: June 18, 2024 Dr. Chadwick Munson MD Attending Provider Active Start: June 18, 2024 End: June 18, 2024 Dr. Chadwick Munson MD Referring Provider Active Start: June 18, 2024 End: June 18, 2024 Team Status: Active Member Role/Relationship Status Osman Alonso MD Primary Care Provider Active St art: June 18, 2024 Dr. Corey Damian DO Attending Provider Active S tart: June 18, 2024 Gaye López PSYCHIATRY TEACHER, PSYCHIATRY TEACHER-C Referring Provider Active Start: June 18, 2024 Team Status: Inactive Member Role/Relationship Status Osman Alonso MD Primary Care Provider Active St art: June 19, 2024 End: June 19, 2024 Lynda Alonso MD Referring Provider Active Start : June 19, 2024 End: June 19, 2024 Dr. Chadwick Munson MD Attending Provider Active Start: June 19, 2024 End: June 19, 2024 Team Status: Inactive Member Role/Relationship Status Osman Alonso MD Primary Care Provider Active St art: June 21, 2024 End: June 21, 2024 Dr. Aly Gupta DO Attending Provider Active Start: June 21, 2024 End: June 21, 2024 Dr. Aly Gupta DO Referring Provider Active Start: June 21, 2024 End: June 21, 2024 Team Status: Inactive Member Role/Relationship Status Osman Alonso MD Primary Care Provider Active St art: June 24, 2024 End: June 24, 2024 Gaye López PSYCHIATRY TEACHER, PSYCHIATRY TEACHER-C Attending Provider Active Start: June 24, 2024 End: June 24, 2024 Gaye López PSYCHIATRY TEACHER, PSYCHIATRY TEACHER-C Referring Provider Active Start: June 24, 2024 End: June 24, 2024 Team Status: Inactive Member Role/Relationship Status Osman Alonso MD Primary Care Provider Active St art: June 24, 2024 End: June 24, 2024 Lynda Alonso MD Referring Provider Active Start : June 24, 2024 End: June 24, 2024 Dr. Aly Gupta DO Attending Provider Active Start: June 24, 2024 End: June 24, 2024 Team Status: Active Member Role/Relationship Status Osman Alonso MD Primary Care Provider Active St art: June 28, 2024 Gaye López PSYCHIATRY TEACHER, PSYCHIATRY TEACHER-C Referring Provider Active Start: June 28, 2024 Gaye López PSYCHIATRY TEACHER, PSYCHIATRY TEACHER-C Other Provider Active Start: June 28, 2024 Dr. Corey Damian DO Attending Provider Active S tart: June 28, 2024 Team Status: Inactive Member Role/Relationship Status Osman Alonso MD Primary Care Provider Active St art: August 26, 2024 End: August 26, 2024 Dr. Chadwick Munson MD Attending Provider Active Start: August 26, 2024 End: August 26, 2024 Dr. Chadwick Munson MD Referring Provider Active Start: August 26, 2024 End: August 26, 2024 Team Status: Inactive Member Role/Relationship Status Osman Alonso MD Primary Care Provider Active St art: August 28, 2024 End: August 28, 2024 Lynda Alonso MD Referring Provider Active Start : August 28, 2024 End: August 28, 2024 Gaye López PSYCHIATRY TEACHER, PSYCHIATRY TEACHER-C Attending Provider Active Start: August 28, 2024 End: August 28, 2024 Team Status: Inactive Member Role/Relationship Status Osman Alonso MD Primary Care Provider Active St art: August 29, 2024 End: August 29, 2024 Lynda Alonso MD Referring Provider Active Start : August 29, 2024 End: August 29, 2024 Dr. Chadwick Munson MD Attending Provider Active Start: August 29, 2024 End: August 29, 2024 Team Status: Inactive Member Role/Relationship Status Osman Alonso MD Primary Care Provider Active St art: September 03, 2024 End: September 03, 2024 Dr. Chadwick Munson MD Attending Provider Active Start: September 03, 2024 End: September 03, 2024 Dr. Chadwick Munson MD Referring Provider Active Start: September 03, 2024 End: September 03, 2024 Team Status: Inactive Member Role/Relationship Status Osman Alonso MD Primary Care Provider Active St art: September 11, 2024 End: September 11, 2024 Lynda Alonso MD Attending Provider Active Start : September 11, 2024 End: September 11, 2024 Lnyda Alonso MD Referring Provider Active Start : September 11, 2024 End: September 11, 2024 Team Status: Inactive Member Role/Relationship Status Osman Alonso MD Primary Care Provider Active St art: September 11, 2024 End: September 11, 2024 Lynda Alonso MD Referring Provider Active Start : September 11, 2024 End: September 11, 2024 Dr. Chadwick Munson MD Attending Provider Active Start: September 11, 2024 End: September 11, 2024 Team Status: Inactive Member Role/Relationship Status Osman Alonso MD Primary Care Provider Active St art: September 24, 2024 End: September 24, 2024 Lynda Alonso MD Referring Provider Active Start : September 24, 2024 End: September 24, 2024 Dr. Chadwick Munson MD Attending Provider Active Start: September 24, 2024 End: September 24, 2024 Team Status: Inactive Member Role/Relationship Status Osman Alonso MD Primary Care Provider Active St art: September 27, 2024 End: September 27, 2024 Dr. Sugar Ramírez MD Attending Provider Active Start: September 27, 2024 End: September 27, 2024 Dr. Chadwick Munson MD Referring Provider Active Start: September 27, 2024 End: September 27, 2024 Team Status: Inactive Member Role/Relationship Status Osman Alonso MD Primary Care Provider Active St art: September 30, 2024 End: September 30, 2024 Lynda Alonso MD Referring Provider Active Start : September 30, 2024 End: September 30, 2024 Shavonne Blanchard PSYCHIATRY TEACHER, PSYCHIATRY TEACHER-C Attending Provider Active Start: September 30, 2024 End: September 30, 2024 Team Status: Inactive Member Role/Relationship Status Osman Alonso MD Primary Care Provider Active St art: October 02, 2024 End: October 02, 2024 Dr. Sugar Ramríez MD Attending Provider Active Start: October 02, 2024 End: October 02, 2024 Dr. Sugar Ramírez MD Referring Provider Active Start: October 02, 2024 End: October 02, 2024 Team Status: Active Member Role/Relationship Status Osman Alonso MD Primary Care Provider Active St art: October 02, 2024 Dr. Sugar Ramírez MD Attending Provider Active Start: October 02, 2024 Dr. Sugar Ramírez MD Referring Provider Active Start: October 02, 2024 Dr. Sugar Ramírez MD Other Provider Active S tart: October 02, 2024 Team Status: Inactive Member Role/Relationship Status Osman Alonso MD Primary Care Provider Active St art: October 04, 2024 End: October 04, 2024 Lynda Alonso MD Referring Provider Active Start : October 04, 2024 End: October 04, 2024 Dr. Sugar Ramírez MD Attending Provider Active Start: October 04, 2024 End: October 04, 2024 Team Status: Inactive Member Role/Relationship Status Dates Lynda Alonso MD Primary Care Provider Active St art: October 08, 2024 End: October 08, 2024 Lynda Alonso MD Referring Provider Active Start : October 08, 2024 End: October 08, 2024 Shavonne Blanchard PSYCHIATRY TEACHER, PSYCHIATRY TEACHER-C Attending Provider Active Start: October 08, 2024 End: October 08, 2024 Team Status: Active Member Role/Relationship Status Dates Lara Boob PSYCHIATRY TEACHER, PSYCHIATRY TEACHER-C Primary Care Provider Activ e Start: October 10, 2024 Dr. Chadwick Munson MD Attending Provider Active Start: October 10, 2024 Dr. Chadwick Munson MD Referring Provider Active Start: October 10, 2024 Team Status: Inactive Member Role/Relationship Status Dates Lynda Alonso MD Primary Care Provider Active St art: October 16, 2024 End: October 16, 2024 Lynda Alonso MD Referring Provider Active Start : October 16, 2024 End: October 16, 2024 Dr. Chadwick Munson MD Attending Provider Active Start: October 16, 2024 End: October 16, 2024 Team Status: Inactive Member Role/Relationship Status Osman Alonso MD Primary Care Provider Active St art: August 26, 2024 End: August 26, 2024 Dr. Chadwick Munson MD Attending Provider Active Start: August 26, 2024 End: August 26, 2024 Dr. Chadwick Munson MD Referring Provider Active Start: August 26, 2024 End: August 26, 2024 Team Status: Inactive Member Role/Relationship Status Osman Alonso MD Primary Care Provider Active St art: August 28, 2024 End: August 28, 2024 Lynda Alonso MD Referring Provider Active Start : August 28, 2024 End: August 28, 2024 Gaye López PSYCHIATRY TEACHER, PSYCHIATRY TEACHER-C Attending Provider Active Start: August 28, 2024 End: August 28, 2024 Team Status: Inactive Member Role/Relationship Status Dates Lynda Alonso MD Primary Care Provider Active St art: August 29, 2024 End: August 29, 2024 Lynda Alonso MD Referring Provider Active Start : August 29, 2024 End: August 29, 2024 Dr. Chadwick Munson MD Attending Provider Active Start: August 29, 2024 End: August 29, 2024 Team Status: Inactive Member Role/Relationship Status Osman Alonso MD Primary Care Provider Active St art: September 03, 2024 End: September 03, 2024 Dr. Chadwick Munson MD Attending Provider Active Start: September 03, 2024 End: September 03, 2024 Dr. Chadwick Munson MD Referring Provider Active Start: September 03, 2024 End: September 03, 2024 Team Status: Inactive Member Role/Relationship Status Osman Alonso MD Primary Care Provider Active St art: September 11, 2024 End: September 11, 2024 Lynda Alonso MD Attending Provider Active Start : September 11, 2024 End: September 11, 2024 Lynda Alonso MD Referring Provider Active Start : September 11, 2024 End: September 11, 2024 Team Status: Inactive Member Role/Relationship Status Osman Alonso MD Primary Care Provider Active St art: September 11, 2024 End: September 11, 2024 Lynda Alonso MD Referring Provider Active Start : September 11, 2024 End: September 11, 2024 Dr. Chadwick Munson MD Attending Provider Active Start: September 11, 2024 End: September 11, 2024 Team Status: Inactive Member Role/Relationship Status Osman Alonso MD Primary Care Provider Active St art: September 24, 2024 End: September 24, 2024 Lynda Alonso MD Referring Provider Active Start : September 24, 2024 End: September 24, 2024 Dr. Chadwick Munson MD Attending Provider Active Start: September 24, 2024 End: September 24, 2024 Team Status: Inactive Member Role/Relationship Status sOman Alonso MD Primary Care Provider Active St art: September 27, 2024 End: September 27, 2024 Dr. Sugar Ramírez MD Attending Provider Active Start: September 27, 2024 End: September 27, 2024 Dr. Chadwick Munson MD Referring Provider Active Start: September 27, 2024 End: September 27, 2024 Team Status: Inactive Member Role/Relationship Status Osman Alonso MD Primary Care Provider Active St art: September 30, 2024 End: September 30, 2024 Lynda Alonso MD Referring Provider Active Start : September 30, 2024 End: September 30, 2024 Shavonne Blanchard PSYCHIATRY TEACHER, PSYCHIATRY TEACHER-C Attending Provider Active Start: September 30, 2024 End: September 30, 2024 Team Status: Inactive Member Role/Relationship Status Osman Alonso MD Primary Care Provider Active St art: October 02, 2024 End: October 02, 2024 Dr. Sugar Ramírez MD Attending Provider Active Start: October 02, 2024 End: October 02, 2024 Dr. Sugar Ramírez MD Referring Provider Active Start: October 02, 2024 End: October 02, 2024 Team Status: Active Member Role/Relationship Status Osman Alonso MD Primary Care Provider Active St art: October 02, 2024 Dr. Sugar Ramírez MD Attending Provider Active Start: October 02, 2024 Dr. Sugar Ramírez MD Referring Provider Active Start: October 02, 2024 Dr. Sugar Ramírez MD Other Provider Active S tart: October 02, 2024 Team Status: Inactive Member Role/Relationship Status Osman Alonso MD Primary Care Provider Active St art: October 04, 2024 End: October 04, 2024 Lynda Alonso MD Referring Provider Active Start : October 04, 2024 End: October 04, 2024 Dr. Sugar Ramírez MD Attending Provider Active Start: October 04, 2024 End: October 04, 2024 Team Status: Inactive Member Role/Relationship Status Osman Alonso MD Primary Care Provider Active St art: October 08, 2024 End: October 08, 2024 Lynda Alonso MD Referring Provider Active Start : October 08, 2024 End: October 08, 2024 Shavonne Blanchard PSYCHIATRY TEACHER, PSYCHIATRY TEACHER-C Attending Provider Active Start: October 08, 2024 End: October 08, 2024 Team Status: Inactive Member Role/Relationship Status Osman Alonso MD Primary Care Provider Active St art: October 16, 2024 End: October 16, 2024 Lynda Alonso MD Referring Provider Active Start : October 16, 2024 End: October 16, 2024 Dr. Chadwick Munson MD Attending Provider Active Start: October 16, 2024 End: October 16, 2024 Team Status: Inactive Member Role/Relationship Status Dates Lynda Alonso MD Primary Care Provider Active St art: November 05, 2024 End: November 05, 2024 Lynda Alonso MD Referring Provider Active Start : November 05, 2024 End: November 05, 2024 Shavonne Blanchard PSYCHIATRY TEACHER, PSYCHIATRY TEACHER-C Attending Provider Active Start: November 05, 2024 End: November 05, 2024 Team Status: Active Member Role/Relationship Status Dates Lara Bobo PSYCHIATRY TEACHER, PSYCHIATRY TEACHER-C Primary Care Provider Activ e Start: November 05, 2024 Dr. Chadwick Munson MD Attending Provider Active Start: November 05, 2024 Dr. Chadwick Munson MD Referring Provider Active Start: November 05, 2024 Team Status: Active Member Role/Relationship Status Dates Lara Bobo PSYCHIATRY TEACHER, PSYCHIATRY TEACHER-C Primary Care Provider Activ e Start: November 26, 2024 Dr. Chadwick Munson MD Attending Provider Active Start: November 26, 2024 Dr. Chadwick Munson MD Referring Provider Active Start: November 26, 2024 Team Status: Inactive Member Role/Relationship Status Dates Lynda Alonso MD Primary Care Provider Active St art: November 26, 2024 End: November 26, 2024 Lynda Alonso MD Referring Provider Active Start : November 26, 2024 End: November 26, 2024 Dr. Chadwick Munson MD Attending Provider Active Start: November 26, 2024 End: November 26, 2024 Team Status: Inactive Member Role/Relationship Status Dates Lynda Alonso MD Primary Care Provider Active St art: December 03, 2024 End: December 03, 2024 Dr. Aly Gupta DO Attending Provider Active Start: December 03, 2024 End: December 03, 2024 Dr. Aly Gupta DO Referring Provider Active Start: December 03, 2024 End: December 03, 2024 Team Status: Active Member Role/Relationship Status Dates Lara Bobo PSYCHIATRY TEACHER, PSYCHIATRY TEACHER-C Primary Care Provider Activ e Start: December 05, 2024 Dr. Chadwick Munson MD Attending Provider Active Start: December 05, 2024 Dr. Chadwick Munson MD Referring Provider Active Start: December 05, 2024 Team Status: Active Member Role/Relationship Status Dates Lara Bobo PSYCHIATRY TEACHER, PSYCHIATRY TEACHER-C Primary Care Provider Activ e Start: December 17, 2024 Dr. Chadwick Munson MD Attending Provider Active Start: December 17, 2024 Dr. Chadwick Munson MD Referring Provider Active Start: December 17, 2024 Team Status: Inactive Member Role/Relationship Status Dates Lynda Alonso MD Primary Care Provider Active St art: December 17, 2024 End: December 17, 2024 Lynda Alonso MD Referring Provider Active Start : December 17, 2024 End: December 17, 2024 Shavonne Blanchard PSYCHIATRY TEACHER, PSYCHIATRY TEACHER-C Attending Provider Active Start: December 17, 2024 End: December 17, 2024 Team Status: Active Member Role/Relationship Status Dates Lynda Alonso MD Primary care physician Active Team Status: Inactive Member Role/Relationship Status Osman Alonso MD Primary care physician Active S tart: September 24, 2024 End: September 24, 2024 Lynda Alonso MD Referring Provider Active Start : September 24, 2024 End: September 24, 2024 Dr. Chadwick Munson MD Attending physician Active Start: September 24, 2024 End: September 24, 2024 Team Status: Inactive Member Role/Relationship Status Osman Alonso MD Primary care physician Active S tart: September 27, 2024 End: September 27, 2024 Dr. Sugar Ramírez MD Attending physician Active Start: September 27, 2024 End: September 27, 2024 Dr. Chadwick Munson MD Referring Provider Active Start: September 27, 2024 End: September 27, 2024 Team Status: Inactive Member Role/Relationship Status Osman Alonso MD Primary care physician Active S tart: September 30, 2024 End: September 30, 2024 Lynda Alonso MD Referring Provider Active Start : September 30, 2024 End: September 30, 2024 Shavonne Blanchard NP, PSYCHIATRY TEACHER-C Attending physician Active Start: September 30, 2024 End: September 30, 2024 Team Status: Inactive Member Role/Relationship Status Osman Alonso MD Primary care physician Active S tart: October 02, 2024 End: October 02, 2024 Dr. Sugar Ramírez MD Attending physician Active Start: October 02, 2024 End: October 02, 2024 Dr. Sugar Ramírez MD Referring Provider Active Start: October 02, 2024 End: October 02, 2024 Team Status: Active Member Role/Relationship Status Osman Alonso MD Primary care physician Active S tart: October 02, 2024 Dr. Sugar Ramírez MD Attending physician Active Start: October 02, 2024 Dr. Sugar Ramírez MD Referring Provider Active Start: October 02, 2024 Dr. Sugar Ramírez MD Nurse Practitioner Active Start: October 02, 2024 Team Status: Inactive Member Role/Relationship Status Osman Alonso MD Primary care physician Active S tart: October 04, 2024 End: October 04, 2024 Lynda Alonso MD Referring Provider Active Start : October 04, 2024 End: October 04, 2024 Dr. Sugar Ramírez MD Attending physician Active Start: October 04, 2024 End: October 04, 2024 Team Status: Inactive Member Role/Relationship Status Osman Alonso MD Primary care physician Active S tart: October 08, 2024 End: October 08, 2024 Lynda Alonso MD Referring Provider Active Start : October 08, 2024 End: October 08, 2024 Shavonne Blanchard PSYCHIATRY TEACHER, PSYCHIATRY TEACHER-C Attending physician Active Start: October 08, 2024 End: October 08, 2024 Team Status: Inactive Member Role/Relationship Status Osman Alonso MD Primary care physician Active S tart: October 16, 2024 End: October 16, 2024 Lynda Alonso MD Referring Provider Active Start : October 16, 2024 End: October 16, 2024 Dr. Chadwick Munson MD Attending physician Active Start: October 16, 2024 End: October 16, 2024 Team Status: Inactive Member Role/Relationship Status Osman Alonso MD Primary care physician Active S tart: November 05, 2024 End: November 05, 2024 Lynda Alonso MD Referring Provider Active Start : November 05, 2024 End: November 05, 2024 Shavonne Blanchard PSYCHIATRY TEACHER, PSYCHIATRY TEACHER-C Attending physician Active Start: November 05, 2024 End: November 05, 2024 Team Status: Inactive Member Role/Relationship Status Osman Alonso MD Primary care physician Active S tart: November 26, 2024 End: November 26, 2024 Lynda Alonso MD Referring Provider Active Start : November 26, 2024 End: November 26, 2024 Dr. Chadwick Munson MD Attending physician Active Start: November 26, 2024 End: November 26, 2024 Team Status: Inactive Member Role/Relationship Status Osman Alonso MD Primary care physician Active S tart: December 03, 2024 End: December 03, 2024 Dr. Aly Gupta DO Attending physician Active Start: December 03, 2024 End: December 03, 2024 Dr. Aly Gupta DO Referring Provider Active Start: December 03, 2024 End: December 03, 2024 Team Status: Inactive Member Role/Relationship Status Osman Alonso MD Primary care physician Active S tart: December 17, 2024 End: December 17, 2024 Lynda Alonso MD Referring Provider Active Start : December 17, 2024 End: December 17, 2024 Shavonne Blanchard PSYCHIATRY TEACHER, PSYCHIATRY TEACHER-C Attending physician Active Start: December 17, 2024 End: December 17, 2024 Team Status: Inactive Member Role/Relationship Status Osman Alonso MD Primary care physician Active S tart: January 07, 2025 End: January 07, 2025 Lynda Alonso MD Referring Provider Active Start : January 07, 2025 End: January 07, 2025 Shavonne Blanchard PSYCHIATRY TEACHER, PSYCHIATRY TEACHER-C Attending physician Active Start: January 07, 2025 End: January 07, 2025 Team Status: Active Member Role/Relationship Status Dates Lara Bobo PSYCHIATRY TEACHER, PSYCHIATRY TEACHER-C Primary care physician Acti ve Start: January 07, 2025 Dr. Chadwick Munson MD Attending physician Active Start: January 07, 2025 Dr. Chadwick Munson MD Referring Provider Active Start: January 07, 2025 Team Status: Inactive Member Role/Relationship Status Osman Alonso MD Primary care physician Active S tart: January 10, 2025 End: January 10, 2025 Lynda Alonso MD Referring Provider Active Start : January 10, 2025 End: January 10, 2025 Dr. Gabriele Guerrero MD Attending physician Active Start: January 10, 2025 End: January 10, 2025 Team Status: Inactive Member Role/Relationship Status Osman Alonso MD Primary care physician Active S tart: September 30, 2024 End: September 30, 2024 Lynda Alonso MD Referring Provider Active Start : September 30, 2024 End: September 30, 2024 Shavonne Blanchard PSYCHIATRY TEACHER, PSYCHIATRY TEACHER-C Attending physician Active Start: September 30, 2024 End: September 30, 2024 Team Status: Inactive Member Role/Relationship Status Osman Alonso MD Primary care physician Active S tart: October 02, 2024 End: October 02, 2024 Dr. Sugar Ramírez MD Attending physician Active Start: October 02, 2024 End: October 02, 2024 Dr. Sugar Ramírez MD Referring Provider Active Start: October 02, 2024 End: October 02, 2024 Team Status: Active Member Role/Relationship Status Osman Alonso MD Primary care physician Active S tart: October 02, 2024 Dr. Sugar Ramírez MD Attending physician Active Start: October 02, 2024 Dr. Sugar Ramírez MD Referring Provider Active Start: October 02, 2024 Dr. Sugar Ramírez MD Nurse Practitioner Active Start: October 02, 2024 Team Status: Inactive Member Role/Relationship Status Osman Alonso MD Primary care physician Active S tart: October 04, 2024 End: October 04, 2024 Lynda Alonso MD Referring Provider Active Start : October 04, 2024 End: October 04, 2024 Dr. Sugar Ramírez MD Attending physician Active Start: October 04, 2024 End: October 04, 2024 Team Status: Inactive Member Role/Relationship Status Osman Alonso MD Primary care physician Active S tart: October 08, 2024 End: October 08, 2024 Lynda Alosno MD Referring Provider Active Start : October 08, 2024 End: October 08, 2024 Shavonne Blanchard PSYCHIATRY TEACHER, PSYCHIATRY TEACHER-C Attending physician Active Start: October 08, 2024 End: October 08, 2024 Team Status: Inactive Member Role/Relationship Status Osman Alonso MD Primary care physician Active S tart: October 16, 2024 End: October 16, 2024 Lynda Alonso MD Referring Provider Active Start : October 16, 2024 End: October 16, 2024 Dr. Chadwick Munson MD Attending physician Active Start: October 16, 2024 End: October 16, 2024 Team Status: Inactive Member Role/Relationship Status Osman Alonso MD Primary care physician Active S tart: November 05, 2024 End: November 05, 2024 Lynda Alonso MD Referring Provider Active Start : November 05, 2024 End: November 05, 2024 Shavonne Blanchard PSYCHIATRY TEACHER, PSYCHIATRY TEACHER-C Attending physician Active Start: November 05, 2024 End: November 05, 2024 Team Status: Inactive Member Role/Relationship Status Osman Alonso MD Primary care physician Active S tart: November 26, 2024 End: November 26, 2024 Lynda Alonso MD Referring Provider Active Start : November 26, 2024 End: November 26, 2024 Dr. Chadwick Munson MD Attending physician Active Start: November 26, 2024 End: November 26, 2024 Team Status: Inactive Member Role/Relationship Status Osman Alonso MD Primary care physician Active S tart: December 03, 2024 End: December 03, 2024 Dr. Aly Gupta DO Attending physician Active Start: December 03, 2024 End: December 03, 2024 Dr. Aly Gupta DO Referring Provider Active Start: December 03, 2024 End: December 03, 2024 Team Status: Inactive Member Role/Relationship Status Osman Alonso MD Primary care physician Active S tart: December 17, 2024 End: December 17, 2024 Lynda Alonso MD Referring Provider Active Start : December 17, 2024 End: December 17, 2024 Shavonne Blanchard PSYCHIATRY TEACHER, PSYCHIATRY TEACHER-C Attending physician Active Start: December 17, 2024 End: December 17, 2024 Team Status: Inactive Member Role/Relationship Status Osman Alonso MD Primary care physician Active S tart: January 07, 2025 End: January 07, 2025 Lynda Alonso MD Referring Provider Active Start : January 07, 2025 End: January 07, 2025 Shavonne Blanchard PSYCHIATRY TEACHER, PSYCHIATRY TEACHER-C Attending physician Active Start: January 07, 2025 End: January 07, 2025 Team Status: Active Member Role/Relationship Status Osman Bobo PSYCHIATRY TEACHER, PSYCHIATRY TEACHER-C Primary care physician Acti ve Start: January 07, 2025 Dr. Chadwick Munson MD Attending physician Active Start: January 07, 2025 Dr. Chadiwck Munson MD Referring Provider Active Start: January 07, 2025 Team Status: Inactive Member Role/Relationship Status Dates Lynda Alonso MD Primary care physician Active S tart: January 10, 2025 End: January 10, 2025 Lynda Alonso MD Referring Provider Active Start : January 10, 2025 End: January 10, 2025 Dr. Gabriele Guerrero MD Attending physician Active Start: January 10, 2025 End: January 10, 2025 Team Status: Active Member Role/Relationship Status Osman Alonso MD Primary care physician Active S tart: January 20, 2025 Dr. Chadwick Munson MD Nurse Practitioner Active Start: January 20, 2025 Dr. Aly Gupta DO Attending physician Active Start: January 20, 2025 Dr. Aly Gupta DO Referring Provider Active Start: January 20, 2025 Team Status: Inactive Member Role/Relationship Status Osman Alonso MD Primary care physician Active S tart: January 23, 2025 End: January 23, 2025 Lynda Alonso MD Referring Provider Active Start : January 23, 2025 End: January 23, 2025 Dr. Aly Gupta DO Attending physician Active Start: January 23, 2025 End: January 23, 2025 Team Status: Inactive Member Role/Relationship Status Osman Alonso MD Primary care physician Active S tart: October 16, 2024 End: October 16, 2024 Lynda Alonso MD Referring Provider Active Start : October 16, 2024 End: October 16, 2024 Dr. Chadwick Munson MD Attending physician Active Start: October 16, 2024 End: October 16, 2024 Team Status: Inactive Member Role/Relationship Status Osman Alonso MD Primary care physician Active S tart: November 05, 2024 End: November 05, 2024 Lynda Alonso MD Referring Provider Active Start : November 05, 2024 End: November 05, 2024 Shavonne Blanchard PSYCHIATRY TEACHER, PSYCHIATRY TEACHER-C Attending physician Active Start: November 05, 2024 End: November 05, 2024 Team Status: Inactive Member Role/Relationship Status Osman Alonso MD Primary care physician Active S tart: November 26, 2024 End: November 26, 2024 Lynda Alonso MD Referring Provider Active Start : November 26, 2024 End: November 26, 2024 Dr. Chadwick Munson MD Attending physician Active Start: November 26, 2024 End: November 26, 2024 Team Status: Inactive Member Role/Relationship Status Osman Alonso MD Primary care physician Active S tart: December 03, 2024 End: December 03, 2024 Dr. Aly Gupta DO Attending physician Active Start: December 03, 2024 End: December 03, 2024 Dr. Aly Gupta DO Referring Provider Active Start: December 03, 2024 End: December 03, 2024 Team Status: Inactive Member Role/Relationship Status Osman Alonso MD Primary care physician Active S tart: December 17, 2024 End: December 17, 2024 Lynda Alonso MD Referring Provider Active Start : December 17, 2024 End: December 17, 2024 Shavonne Blanchard NP, PSYCHIATRY TEACHER-C Attending physician Active Start: December 17, 2024 End: December 17, 2024 Team Status: Inactive Member Role/Relationship Status Osman Alonso MD Primary care physician Active S tart: January 07, 2025 End: January 07, 2025 Lynda Alonso MD Referring Provider Active Start : January 07, 2025 End: January 07, 2025 Shavonne Blanchard NP, PSYCHIATRY TEACHER-C Attending physician Active Start: January 07, 2025 End: January 07, 2025 Team Status: Inactive Member Role/Relationship Status Osman Alonso MD Primary care physician Active S tart: January 10, 2025 End: January 10, 2025 Lynda Alonso MD Referring Provider Active Start : January 10, 2025 End: January 10, 2025 Dr. Gabriele Guerrero MD Attending physician Active Start: January 10, 2025 End: January 10, 2025 Team Status: Active Member Role/Relationship Status Osman Alonso MD Primary care physician Active S tart: January 20, 2025 Dr. Chadwick Munson MD Nurse Practitioner Active Start: January 20, 2025 Dr. Aly Gupta DO Attending physician Active Start: January 20, 2025 Dr. Aly Gupta DO Referring Provider Active Start: January 20, 2025 Team Status: Inactive Member Role/Relationship Status Dates Lynda Alonso MD Primary care physician Active S tart: January 23, 2025 End: January 23, 2025 Lynda Alonso MD Referring Provider Active Start : January 23, 2025 End: January 23, 2025 Dr. Aly Gupta DO Attending physician Active Start: January 23, 2025 End: January 23, 2025 Team Status: Active Member Role/Relationship Status Dates Lara Bobo PSYCHIATRY TEACHER, PSYCHIATRY TEACHER-C Primary care physician Acti ve Start: January 28, 2025 Dr. Chadwick Munson MD Attending physician Active Start: January 28, 2025 Dr. Chadwick Munson MD Referring Provider Active Start: January 28, 2025 INFORMATION SOURCE (unrecogn ized section and content) DATE CREATED AUTHOR 02/27/2025 [facility] FOR RECORDS PERTAINING TO PATIENTS WHO ARE [...] BE BASED ON THE PRIMARY CLINICAL RECORDS. [employer] [facility]. provides no warranty or guarantee of the accuracy or completeness of information in this document.
[2025-03-14] MEDS: 0.9 % NaCl (Sterile) Posiflush 10 mL IV (15:00)
[2025-03-14] MEDS: 0.9% Saline Lock 10 ML Syringe IV (15:15)
== END | disposition home or self-care (01) ==
PROVIDERS: PCP Family Medicine; Referring Provider Internal Medicine Hematology & Oncology; Visit Provider Internal Medicine Hematology & Oncology
DX: C34.11 Malignant neoplasm of upper lobe, right bronchus or lung (principal)
CPT/HCPCS: 71260; 74160; Q9967; A4216

== ENCOUNTER → 2025-03-17 | Outpatient (CLI) | payer MEDICARE, SELFPAY ==
--- NOTE | 2025-03-17 13:02 | MRI_ITS ---
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 CONTRAST: Clariscan VOLUME: 12 mL COMPARISON: MRI brain 01/20/2025 FINDINGS: The ocular globes appear normal in contour. The lenses are in normal anatomic location. The optic nerves, optic chiasm, optic tracts, extraocular muscles, orbital fat, and lacrimal glands appear overall symmetric and within normal limits of size and signal. There is no evidence of enhancing mass or abnormal enhancement in the orbits. No acute infarct or hemorrhage. Persistent right parietal lobe enhancing focus. 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 Stable nonspecific foci of periventricular and subcortical T2/FLAIR white matter hyperintensities in the cerebral hemispheres compatible likely reflecting chronic microvascular ischemic changes. No extra-axial fluid collection. No significant mass effect or herniation of the brain. Global cerebral volume loss. No hydrocephalus. The basal cisterns are patent. The intracranial large vessel arterial flow voids are maintained. The mastoid air cells clear. There is paranasal mucosal thickening. The calvarial bone marrow signal is within normal limits. MRI/Brain W/WO Contrast IMPRESSION: 1. No abnormal signal or pathologic enhancement in the orbits. 2. No acute infarct, hemorrhage, or intracranial enhancing lesion. Reading Location: [facility]
[2025-03-17] MEDS: 0.9% Saline Lock 10 ML Syringe IV (14:05)
== END | disposition home or self-care (01) ==
LOC: MRI 13:01
PROVIDERS: PCP Family Medicine; Referring Provider Internal Medicine Hematology & Oncology; Visit Provider Internal Medicine Hematology & Oncology
DX: C34.11 Malignant neoplasm of upper lobe, right bronchus or lung (principal); C77.9 Secondary and unspecified malignant neoplasm of lymph node, unspecified; H53.2 Diplopia
CPT/HCPCS: 70553; A9575; A4216